=== PATIENT | female | born 1950 | race Caucasian/White ===

== ENCOUNTER 2021-02-12 02:56 | Emergency (ER) | payer MEDICARE, BC, SELFPAY ==
--- NOTE | ~2021-02-12 | XR_ITS ---
XR chest 1V portable DATE: 02/12/2021 03:40 INDICATION: Chest pain, shortness of breath TECHNIQUE: Portable AP chest on 02/12/2021 at 0336 hours COMPARISON: 12/10/2016 PA and lateral chest FINDINGS: There is pulmonary vascular congestion and redistribution. There is prominence of the minor fissure consistent with subpleural edema. There is patchy infiltrate in the mid to lower lung zones, primarily on the left, which may be due to pulmonary edema and/or pneumonia. Small pleural effusions are not excluded. Diffuse osteopenia. IMPRESSION: Congestive changes Bilateral mid and lower lung infiltrates, primarily on the left; differential diagnosis includes pulm onary edema, pneumonia Reviewed, dictated and finalized at location A. IMPRESSION: Congestive changes Bilateral mid and lower lung infiltrates, primarily on the left; differential d iagnosis includes pulmonary edema, pneumonia
--- NOTE | ~2021-02-12 | CT_ITS ---
EXAMINATION: CT chest abdomen pelvis wo con DATE: 02/12/2021 05:46 INDICATION: Aortic aneurysm. Chest pain. Shortness of breath. TECHNIQUE: Computed tomography (CT) of the chest, abdomen, and pelvis was performed without intraveno us contrast. Automated exposure control and iterative reconstruction technique were employed. The dos e-length product was 2017.10 mGy-cm. COMPARISON: None FINDINGS: CHEST CT: The lungs demonstrate mild atelectasis. There is a trace left pleural effusion. There is left atrial enlargement of the heart. There are coronary artery calcifications. No pericardial effusion. The cent ral pulmonary pulmonary arteries are enlarged, consistent with pulmonary arterial hypertension. There is mild mediastinal lymphadenopathy, likely reactive. There is mild thoracic spondylosis. ABDOMEN/PELVIS CT: The liver and spleen are normal. There are changes of cholecystectomy. The pancreas and adrenal gland s are normal. There are cysts in the kidneys measuring up to 1.6 cm on the right. There is a 2 mm sto ne in right kidney. There are no dilated loops of bowel. The appendix is not visualized. There are no pathologically enlarged lymph nodes. There is no free intraperitoneal fluid. There is subcutaneous f at stranding posterior to the pelvis to the right of midline, consistent with fat necrosis. Abdominal aorta is normal in caliber. There is mild lumbar spondylosis. IMPRESSION: 1. No aortic aneurysm. Reviewed, dictated and finalized at location B. IMPRESSION: 1. No aortic aneurysm.
[2021-02-12 02:58] VITALS: BP 123/57; PULSE 74; RESP 22; TEMP 36.6; O2SAT 95
--- NOTE | 2021-02-12 03:03 | ECG_ITS ---
Measurements Intervals [place] Rate: 72 P: 48 CT: 192 QRS: -4 QRSD: 95 T: 48 QT: 391 QTc: 429 Interpretive Statements SINUS RHYTHM DELAYED PRECORDIAL R/S TRANSITION BORDERLINE T WAVE ABNORMALITY- ANTERIOR LEADS BORDERLINE ECG Electronically Signed On 02-12-2021 7:24:35 CDT by Lucian España D.O.
[2021-02-12 03:10] VITALS: PULSE 74
[2021-02-12 03:20] LABS: Alveolar/Arterial O2 Gradient 108.1 mmHg; Base Excess ABG 5.9 mEq/l (+/-2.0); Carboxyhemoglobin 0.1 % THb (0-2.0); Device NASAL CANNULA; Fractional Inspired Oxygen 32 %; HCO3 ABG 29.8 mEq/l (22.0-26.0); Methemoglobin ABG 0.1 %THb (0-1.5); Modified Allen's Test Pass; Oxygen Content ABG 15.5 %vol (16.0-22.0); Oxygen Saturation ABG 95.5 % (95.0-100.0); Oxyhemoglobin 94.7 % THb (90.0-100.0); PCO2 ABG 40.8 mmHg (35.0-45.0); PO2 ABG 72.3 mmHg (80.0-100.0); PO2 FiO2 Ratio Arterial Blood 2.26 %; Reduced Hemoglobin 5.1 %THb (0-5.0); Site Drawn RIGHT RADIAL; Total Hemoglobin 11.6 g/dL (12.0-18.0); pH ABG 7.482 (7.350-7.450)
[2021-02-12 03:36] LABS: Basophils Absolute Auto 0.1 K/mm3 (0.0-0.1); Basophils Percent Auto 0.9 % (0.2-1.2); Eosinophils Absolute Auto 0.8 K/mm3 (0-0.3); Eosinophils Percent Auto 9.5 % (0-4.4); Hematocrit 33.9 % (37.0-47.0); Hemoglobin 10.9 g/dL (12.0-15.0); Immature Granulocyte Absolute 0.03 K/mm3 (0.00-0.031); Immature Granulocyte Percent A 0.4 % (0-0.5); Lymphocytes Absolute Auto 2.29 K/mm3 (0.9-3.2); Lymphocytes Percent Auto 26.8 % (18.3-44.2); Mean Corpuscular HGB Conc 32.2 g/dl (32-36); Mean Corpuscular Volume 99.4 fl (80-100); Mean Platelet Volume 9.3 fl (7.4-10.4); Monocytes Absolute Auto 0.8 K/mm3 (0.1-0.6); Monocytes Percent Auto 8.9 % (2.6-8.5); Neutrophils Absolute Auto 4.6 K/mm3 (1.3-6.7); Neutrophils Percent Auto 53.5 % (45.5-73.1); Platelet Count Result 215 k/mm3 (150-375); Red Blood Count 3.41 M/mm3 (4.2-5.4); Red Cell Distribution Width 16.4 % (11.5-14.5); White Blood Count 8.5 K/mm3 (4.5-10.0)
[2021-02-12 03:47] LABS: Prothrombin Time 13.5 Seconds (11.1-14.7)
[2021-02-12 03:47] LABS: Alanine Aminotransferase 37 U/L (4-35); Albumin Level 3.3 g/dL (3.5-5.1); Alkaline Phosphatase 61 U/L (38-126); Anion Gap 4 mmol/L (8-16); Aspartate Amino Transferase 54 U/L (14-36); Bilirubin,Total 0.4 mg/dL (0.2-1.3); Blood Urea Nitrogen 45 mg/dL (7-17); Calcium 9.9 mg/dL (8.4-10.2); Carbon Dioxide 32 mmol/L (22-30); Chloride 96 mmol/L (98-107); Estimated Glomerular Filt Rate 17; Glucose 127 mg/dL (65-105); Lipase 111 U/L (23-300); Potassium 4.1 mmol/L (3.4-5.0); Sodium 132 mmol/L (137-145)
[2021-02-12 03:48] LABS: Partial Thromboplastin Time 26.7 SECONDS (22.3-36.8)
--- NOTE | 2021-02-12 03:51 | ED.SOB ---
HPI - SOB/Dyspnea General Chief Complaint: Shortness of Breath/Dyspnea Stated Complaint: Shortness of breath Time Seen by Provider: 02/12/21 03:01 Source: patient Mode of arrival: EMS Limitations: no limitations History of Present Illness HPI Narrative: This is a 70 year old female with history of CAD, HTN, Chronic kidney disease, DMII, DVT, thoracic aortic aneursymp who presents from the retirement for evaluation of cough and shortness of breath x 1 week. She had a chest xray performed yesterday. Patient asked to come to ER because she was not getting any better. She has been wearing 1-2 L NC at retirement chronically. EMS reports patient's oxygenation was 88% at nursing but it is 95 % in our ER. She reports midchest, epigastric pain intermittent for 1 week. This pain occurs mostly when she coughs. She denies fever, nausea, vomiting or chills. Related Data Home Medications Medication Instructions Recorded Confirmed aspirin 81 mg tablet,delayed 81 mg PO DAILY 11/15/19 06/16/20 release carvedilol 25 mg tablet See Rx Instructions PO Q12H tablet 11/15/19 06/16/20 cholecalciferol (vitamin D3) 25 25 mcg PO DAILY 11/15/19 06/16/20 mcg (1,000 unit) tablet febuxostat 80 mg tablet 80 mg PO DAILY 11/15/19 06/16/20 magnesium oxide 400 mg PO DAILY 11/15/19 06/16/20 omega-3 fatty acids 1,000 mg 1,000 mg PO DAILY 11/15/19 06/16/20 capsule spironolactone 25 mg tablet 25 mg PO DAILY 11/15/19 06/16/20 pantoprazole 40 mg tablet,delayed 40 mg PO BID tablet 11/26/20 release sevelamer HCl 800 mg tablet 800 mg PO TID 11/26/20 insulin glargine 100 unit/mL (3 45 unit SUBCUT QPM ml 01/01/21 mL) subcutaneous pen Allergies Allergy/AdvReac Type Severity Reaction Status Date / Time No Known Allergies Allergy Verified 02/12/21 04:01 Review of Systems Review of Systems: All systems reviewed & are unremarkable except as noted in HPI and below Constitutional: Constitutional: Denies chills and Denies fever(s) Cardiovascular: Cardiovascular: Reports chest pain Respiratory: Respiratory: Reports cough and Reports dyspnea Gastrointestinal: Gastrointestinal: Reports abdominal pain [facility] Past Medical History Medical History (Updated 02/12/21 @ 06:53 by Magdalene Cunningham MD) Aortic aneurysm Chronic kidney disease, unspecified History of DVT (deep vein thrombosis) Hyperparathyroidism Hypertension Hypothyroidism Personal history of pulmonary embolism Sleep apnea Thyroid nodule Type 2 diabetes mellitus with diabetic nephropathy Family History Family History Mother Diabetes mellitus Family history of bipolar disorder Hypertension Father Family history of cardiovascular disease Cerebrovascular accident Family history of emphysema Other Family history of anemia Family history of congestive heart failure Family history of obesity Social History Social History Smoking status: Never smoker Alcohol intake: current Gender identity (if verbalized by the patient): Female Exam Const: General: alert Nutritional Appearance: obese Orientation/consciousness: patient oriented x3 Eyes: EOM: EOMs intact bilaterally Resp: Effort & Inspection: normal respiratory effort and no retractions Auscultation: clear to auscultation bilaterally Cardio: Rate: regular rate Rhythm: regular rhythm Heart sounds: no murmurs GI: GI Palp: Yes Soft to palpation, Yes Tenderness to palpation present (GI) (epigastric) and No Guarding due to palpation present (GI) Auscultation: normal bowel sounds Neuro: General: patient oriented x3 and moves all extremities Extrem: General: edema Psych: Mental Status: mental status grossly normal Affect: normal affect Course Reevaluation(s) Reevaluation #1: Patient is resting comfortably. She is in no acute distress and she is afebrile. Her oxygen saturation
[2021-02-12 03:58] LABS: NT Pro B Type Natriuretic Pept 1280 PG/ML (5-100); Troponin I < 0.012 ng/mL (0.000-0.034)
[2021-02-12 04:02] VITALS: BP 120/72; PULSE 73; RESP 20; O2SAT 97
--- NOTE | 2021-02-12 05:19 | PC.NURSE ---
contacted [facility] for pt. chart spoke with Amanda. Amanda states I gave two packets to the paramedics. One for you and one for them. RN asked Amanda if there was any chance for them to send another packet since there is not one here. Amanda states Yeah what is your fax number and who do I make it out too. RN informed Amanda it was not needed to put anyones name down and [facility] was acceptable. Amanda states no I want a name to put down so you wont call again.
[2021-02-12 06:13] VITALS: BP 121/57; PULSE 70; RESP 22; O2SAT 100
[2021-02-12 07:14] VITALS: BP 137/67; PULSE 74; RESP 22; O2SAT 95
--- NOTE | 2021-02-12 07:15 | PC.NURSE ---
Pt resting on cart easily arousable, AOx3, wet cough and states I feel I don't cough as much if my oxygen is increased . Baseline 2L (was satting 91%), increased to 3L with quick recovery to 95%. Pt will return to [place]
--- NOTE | 2021-02-12 08:00 | PC.NURSE ---
Updated daughter Beverly Flores [phone] on POC Called [facility], spoke with Lisa, stated nurse unavailable to take report at this time. Aware pt is being transported back and new ordered were already placed by detention MD Dr. Gillespie
== END 2021-02-12 08:20 ==
PROVIDERS: Emergency Provider General Practice; PCP Family Medicine
DX: I13.0 Hypertensive heart and chronic kidney disease with heart failure and stage 1 through stage 4 chronic kidney disease, or unspecified chronic kidney disease (principal); I50.9 Heart failure, unspecified; R06.00 Dyspnea, unspecified; E11.22 Type 2 diabetes mellitus with diabetic chronic kidney disease; N18.9 Chronic kidney disease, unspecified; E11.42 Type 2 diabetes mellitus with diabetic polyneuropathy; I25.10 Atherosclerotic heart disease of native coronary artery without angina pectoris; E21.3 Hyperparathyroidism, unspecified; E03.9 Hypothyroidism, unspecified; G47.30 Sleep apnea, unspecified; Z86.718 Personal history of other venous thrombosis and embolism; Z86.711 Personal history of pulmonary embolism; R94.31 Abnormal electrocardiogram [ECG] [EKG]
CPT/HCPCS: 36415; 36600; 71045; 71250; 74176; 80048; 80076; 82375; 82805; 83050; 83690; 83880; 84484; 85025; 85610; 85730; 93005; 99284

== ENCOUNTER 2021-04-30 13:42 | Emergency (ER) | payer MEDICARE, BC, SELFPAY ==
[2021-04-30 13:47] VITALS: BP 159/55; PULSE 65; RESP 20; TEMP 36.7; O2SAT 100
[2021-04-30 14:12] LABS: Basophils Absolute Auto 0.1 K/mm3 (0.0-0.1); Basophils Percent Auto 0.7 % (0.2-1.2); Eosinophils Absolute Auto 0.5 K/mm3 (0-0.3); Eosinophils Percent Auto 6.7 % (0-4.4); Hematocrit 36.7 % (37.0-47.0); Hemoglobin 11.2 g/dL (12.0-15.0); Immature Granulocyte Absolute 0.03 K/mm3 (0.00-0.031); Immature Granulocyte Percent A 0.4 % (0-0.5); Lymphocytes Absolute Auto 2.14 K/mm3 (0.9-3.2); Lymphocytes Percent Auto 29.2 % (18.3-44.2); Mean Corpuscular HGB Conc 30.5 g/dl (32-36); Mean Corpuscular Hemoglobin 30.8 pg (26-34); Mean Corpuscular Volume 100.8 fl (80-100); Monocytes Absolute Auto 0.7 K/mm3 (0.1-0.6); Monocytes Percent Auto 9.6 % (2.6-8.5); Neutrophils Absolute Auto 3.9 K/mm3 (1.3-6.7); Neutrophils Percent Auto 53.4 % (45.5-73.1); Platelet Count Result 224 k/mm3 (150-375); Red Blood Count 3.64 M/mm3 (4.2-5.4); Red Cell Distribution Width 15.8 % (11.5-14.5); White Blood Count 7.3 K/mm3 (4.5-10.0)
[2021-04-30 14:21] LABS: Prothrombin Time 13.3 Seconds (11.1-14.7)
[2021-04-30 14:22] LABS: Partial Thromboplastin Time 24.9 SECONDS (22.3-36.8)
[2021-04-30 14:27] LABS: Alanine Aminotransferase 12 U/L (4-35); Alkaline Phosphatase 70 U/L (38-126); Anion Gap 11 mmol/L (8-16); Aspartate Amino Transferase 26 U/L (14-36); Bilirubin,Total 0.7 mg/dL (0.2-1.3); Blood Urea Nitrogen 41 mg/dL (7-17); Calcium 10.8 mg/dL (8.4-10.2); Carbon Dioxide 29 mmol/L (22-30); Chloride 101 mmol/L (98-107); Estimated CRCL calculation 30 ml/min; Estimated Glomerular Filt Rate 21; Glucose 112 mg/dL (65-105); Potassium 3.5 mmol/L (3.4-5.0); Sodium 141 mmol/L (137-145)
[2021-04-30 15:29] VITALS: BP 143/66; PULSE 61; RESP 20; O2SAT 100
--- NOTE | 2021-04-30 15:36 | ED.GIBLEED ---
HPI - GI Bleed General Chief complaint: GI Bleed Stated complaint: GI Bleed? Time Seen by Provider: 04/30/21 15:10 History of Present Illness HPI Narrative: Patient is a 70-year-old female who presents ER with concerns for GI bleed. Patient reports for the last 3 weeks she has been having dark black stools. Reports she gave a stool sample to her PCP and the results came back as normal. She was also told that her anemia has improved since previous testing. She does not take iron. She does report she has been taking some Pepto-Bismol since having her loose stools. Last bowel movement was yesterday. No emesis. No heartburn. She is not on any blood thinners. Denies use of anti-inflammatories. She does take a baby aspirin. Related Data Home Medications Medication Instructions Recorded Confirmed aspirin 81 mg tablet,delayed 81 mg PO DAILY 11/15/19 04/20/21 release carvedilol 25 mg tablet See Rx Instructions PO Q12H tablet 11/15/19 04/20/21 cholecalciferol (vitamin D3) 25 25 mcg PO DAILY 11/15/19 04/20/21 mcg (1,000 unit) tablet febuxostat 80 mg tablet 80 mg PO DAILY 11/15/19 04/20/21 magnesium oxide 400 mg PO DAILY 11/15/19 04/20/21 omega-3 fatty acids 1,000 mg 1,000 mg PO DAILY 11/15/19 04/20/21 capsule spironolactone 25 mg tablet 25 mg PO DAILY 11/15/19 04/20/21 pantoprazole 40 mg tablet,delayed 40 mg PO BID tablet 11/26/20 04/20/21 release sevelamer HCl 800 mg tablet 800 mg PO TID 11/26/20 04/20/21 B-complex with vitamin C 1 tablet PO DAILY 03/17/21 04/20/21 allopurinol 300 mg tablet 300 mg PO DAILY 03/17/21 04/20/21 cetirizine 10 mg tablet 10 mg PO DAILY PRN 03/17/21 04/20/21 fluticasone propionate 50 2 spray INTRANASAL DAILY 03/17/21 04/20/21 mcg/actuation nasal spray,suspension furosemide 20 mg tablet 60 mg PO BID tablet 03/17/21 04/20/21 lactulose 10 gram/15 mL oral 10 g PO DAILY 03/17/21 04/20/21 solution omega-3 fatty acids 1,000 mg 1,000 mg PO DAILY 03/17/21 04/20/21 capsule Allergies Allergy/AdvReac Type Severity Reaction Status Date / Time No Known Allergies Allergy Verified 04/30/21 15:34 Review of Systems Review of Systems: All systems reviewed & are unremarkable except as noted in HPI and below Constitutional: Constitutional: Denies chills, Denies fever(s) and Denies weakness Cardiovascular: Cardiovascular: Denies chest pain and Denies radiating jaw, neck or arm pain Respiratory: Respiratory: Denies cough and Reports dyspnea (Chronic, wears 3 L.) Gastrointestinal: Gastrointestinal: Denies abdominal pain, Reports diarrhea, Denies nausea and Denies vomiting Comments: dark stools Genitourinary: Genitourinary: Denies abnormal vaginal bleeding, Denies nocturia and Denies dysuria Neurologic: Denies dizziness, Denies syncope and Denies weakness [facility] Past Medical History Medical History (Updated 04/30/21 @ 15:49 by Kit Krishnamurthy MD) Aortic aneurysm Chronic kidney disease, unspecified History of DVT (deep vein thrombosis) Hyperparathyroidism Hypertension Hypothyroidism Personal history of pulmonary embolism Sleep apnea Thyroid nodule Type 2 diabetes mellitus with diabetic nephropathy Family History Family History Mother Diabetes mellitus Family history of bipolar disorder Hypertension Father Family history of cardiovascular disease Cerebrovascular accident Family history of emphysema Other Family history of anemia Family history of congestive heart failure Family history of obesity Social History Social History Smoking status: Never smoker Second hand tobacco smoke exposure: No Alcohol intake: never Substance use: never Substance use type: does not use Gender identity (if verbalized by the patient): Female Spiritual care concerns: No Agree to blood products: Yes Exam Narrative: Exam Narrative: GENERAL: Well
[2021-04-30 16:26] VITALS: BP 148/64; PULSE 63; RESP 18; O2SAT 100
== END 2021-04-30 17:03 | disposition home or self-care (01) ==
LOC: ANHED 16:25
PROVIDERS: Emergency Provider Emergency Medicine; PCP Family Medicine
DX: R19.5 Other fecal abnormalities (principal); E11.22 Type 2 diabetes mellitus with diabetic chronic kidney disease; I12.9 Hypertensive chronic kidney disease with stage 1 through stage 4 chronic kidney disease, or unspecified chronic kidney disease; N18.9 Chronic kidney disease, unspecified; E03.9 Hypothyroidism, unspecified; I26.99 Other pulmonary embolism without acute cor pulmonale; Z86.718 Personal history of other venous thrombosis and embolism; Z79.82 Long term (current) use of aspirin
CPT/HCPCS: 36415; 80053; 85025; 85610; 85730; 86850; 86900; 86901; 99283

== ENCOUNTER 2021-05-26 10:10 | Outpatient (CLI) | payer MEDICARE, BC, SELFPAY ==
--- NOTE | ~2021-05-26 | MM_ITS ---
EXAMINATION: MM screening joselin BI w yaw HISTORY: Screening TECHNIQUE: Craniocaudal and mediolateral oblique 3-D tomosynthesis images were obtained and synthetic 2-D images were generated. CAD analysis was submitted and interpreted. COMPARISON: No prior mammogram is available for comparison at this institution. BREAST PARENCHYMAL COMPOSITION: There are scattered areas of fibroglandular density. FINDINGS: There is no evidence of suspicious mass, calcification, or architectural distortion to sugg est malignancy in either breast. There has been no suspicious interval change. IMPRESSION: 1. No mammographic evidence of malignancy. 2. Recommend routine screening mammography in one year. BI-RADS Category 1: Negative Reviewed, dictated and finalized at location A.
== END 2021-05-26 10:11 | disposition home or self-care (01) ==
PROVIDERS: PCP Family Medicine; Visit Provider Family Medicine
DX: Z12.31 Encounter for screening mammogram for malignant neoplasm of breast (principal)
CPT/HCPCS: 77063; 77067

== ENCOUNTER 2021-06-05 01:07 | Day surgery (SDC) | payer MEDICARE, BC, SELFPAY ==
[2021-05-27 13:31] VITALS: BMI 49.8
--- NOTE | 2021-06-05 06:43 | PM.HPGS ---
History of Present Illness History of Present Illness Consent: Risks, benefits, and alternatives have been discussed and questions answered. Patient agrees to proceed with procedure. Chief complaint: melena, nausea Narrative: Beto Bryan is a 70 year old female who takes pantoprazole for acid reflux but recently has had black stools for the past couple of weeks. She has history of colon polyps and is due for colonoscopy for screening Review of Systems Review of Systems: All systems reviewed & are unremarkable except as noted in HPI and below PMFSH Past Medical History Medical History Aortic aneurysm Chronic kidney disease, unspecified History of DVT (deep vein thrombosis) Hyperparathyroidism Hypertension Hypothyroidism Personal history of pulmonary embolism Sleep apnea Thyroid nodule Type 2 diabetes mellitus with diabetic nephropathy Family History Family History Mother Diabetes mellitus Family history of bipolar disorder Hypertension Father Family history of cardiovascular disease Cerebrovascular accident Family history of emphysema Other Family history of anemia Family history of congestive heart failure Family history of obesity Social History Social History Smoking status: Never smoker Second hand tobacco smoke exposure: No Alcohol intake: never Substance use: never Substance use type: does not use Living arrangements: assisted living Gender identity (if verbalized by the patient): Female Spiritual care concerns: No Agree to blood products: Yes Meds Home Medications and Allergies Home Medications Medication Instructions Recorded Confirmed Type carvedilol 25 mg tablet 50 mg PO Q12H tablet 11/15/19 06/05/21 History cholecalciferol (vitamin D3) 25 25 mcg PO DAILY 11/15/19 06/05/21 History mcg (1,000 unit) tablet magnesium oxide 400 mg PO DAILY 11/15/19 06/05/21 History omega-3 fatty acids 1,000 mg 1,000 mg PO DAILY 11/15/19 06/05/21 History capsule allopurinol 300 mg tablet 300 mg PO DAILY 03/17/21 06/05/21 History fluticasone propionate 50 2 spray INTRANASAL DAILY 03/17/21 06/05/21 History mcg/actuation nasal spray,suspension furosemide 20 mg tablet 60 mg PO BID tablet 03/17/21 06/05/21 History lactulose 10 gram/15 mL oral 10 g PO DAILY 03/17/21 06/05/21 History solution insulin glargine 100 unit/mL (3 50 unit SUBCUT QPM 90 Days #45 ml 04/20/21 06/05/21 Rx mL) subcutaneous pen levothyroxine 50 mcg tablet 50 mcg PO DAILY #90 tablet 04/20/21 06/05/21 Rx pen needle, diabetic 31 gauge x #400 each 04/20/21 06/05/21 Rx /16 blood sugar diagnostic #400 each 04/21/21 06/05/21 Rx insulin lispro 100 unit/mL 21 unit SUBCUT TID #60 ml 04/21/21 06/05/21 Rx subcutaneous pen lancets 33 gauge #400 each 04/21/21 06/05/21 Rx Vitamin B Complex With C 1 tablet PO DAILY 05/27/21 06/05/21 History atorvastatin 10 mg PO DAILY 05/27/21 06/05/21 History cetirizine 10 mg PO DAILY 05/27/21 06/05/21 History escitalopram oxalate 10 mg PO DAILY 05/27/21 06/05/21 History febuxostat 80 mg PO DAILY 05/27/21 06/05/21 History fexofenadine 180 mg PO DAILY 05/27/21 06/05/21 History pantoprazole 40 mg PO DAILY 05/27/21 06/05/21 History sevelamer HCl 800 mg PO TID 05/27/21 06/05/21 History spironolactone 25 mg PO DAILY 05/27/21 06/05/21 History Allergies Allergy/AdvReac Type Severity Reaction Status Date / Time No Known Allergies Allergy Verified 06/05/21 07:36 Exam Resp: Auscultation: clear to auscultation bilaterally Cardio: Rate: regular rate Rhythm: regular rhythm GI: GI Palp: Yes Soft to palpation and No Tenderness to palpation present (GI) Assessment and Plan Assessment and plan (1) Melena: Code(s): K92.1 - Melena Status: Acute Assessment and Plan: EGD with po
[2021-06-05 07:41] VITALS: BP 131/58; PULSE 74; RESP 20; TEMP 36.2; O2SAT 95
[2021-06-05] MEDS: LACTATED RINGERS 1,000 ML 150 ML IV CONT (07:48)
--- NOTE | 2021-06-05 07:52 | WPDANESEPPF ---
Anes - Initial Pre Proc Eval Procedure: Operation Date: 06/05/21 08:30 Proposed Procedures p Esophagogastroduodenoscopy & Colonoscopy - Dereje Santos MD Date/Time: 06/05/21 07:52 Surgeon: Dereje Santos MD Pre Op Diagnosis: melena, nausea Patient Data Age: 70 Gender: F Height: 1.65 m Weight: 145.3 kg Last Vital Signs Temp 36.2 C L 06/05/21 07:41 Pulse 74 06/05/21 07:41 Resp 20 06/05/21 07:41 BP 131/58 L 06/05/21 07:41 Pulse Ox 95 06/05/21 07:41 Allergies Allergy/AdvReac Type Severity Reaction Status Date / Time No Known Allergies Allergy Verified 06/05/21 07:36 Home Medications Medication Instructions Recorded Confirmed Type carvedilol 25 mg tablet 50 mg PO Q12H tablet 11/15/19 06/05/21 History cholecalciferol (vitamin D3) 25 25 mcg PO DAILY 11/15/19 06/05/21 History mcg (1,000 unit) tablet magnesium oxide 400 mg PO DAILY 11/15/19 06/05/21 History omega-3 fatty acids 1,000 mg 1,000 mg PO DAILY 11/15/19 06/05/21 History capsule allopurinol 300 mg tablet 300 mg PO DAILY 03/17/21 06/05/21 History fluticasone propionate 50 2 spray INTRANASAL DAILY 03/17/21 06/05/21 History mcg/actuation nasal spray,suspension furosemide 20 mg tablet 60 mg PO BID tablet 03/17/21 06/05/21 History lactulose 10 gram/15 mL oral 10 g PO DAILY 03/17/21 06/05/21 History solution insulin glargine 100 unit/mL (3 50 unit SUBCUT QPM 90 Days #45 ml 04/20/21 06/05/21 Rx mL) subcutaneous pen levothyroxine 50 mcg tablet 50 mcg PO DAILY #90 tablet 04/20/21 06/05/21 Rx pen needle, diabetic 31 gauge x #400 each 04/20/21 06/05/21 Rx 5/16 blood sugar diagnostic #400 each 04/21/21 06/05/21 Rx insulin lispro 100 unit/mL 21 unit SUBCUT TID #60 ml 04/21/21 06/05/21 Rx subcutaneous pen lancets 33 gauge #400 each 04/21/21 06/05/21 Rx Vitamin B Complex With C 1 tablet PO DAILY 05/27/21 06/05/21 History atorvastatin 10 mg PO DAILY 05/27/21 06/05/21 History cetirizine 10 mg PO DAILY 05/27/21 06/05/21 History escitalopram oxalate 10 mg PO DAILY 05/27/21 06/05/21 History febuxostat 80 mg PO DAILY 05/27/21 06/05/21 History fexofenadine 180 mg PO DAILY 05/27/21 06/05/21 History pantoprazole 40 mg PO DAILY 05/27/21 06/05/21 History sevelamer HCl 800 mg PO TID 05/27/21 06/05/21 History spironolactone 25 mg PO DAILY 05/27/21 06/05/21 History Laboratory Tests 06/05/21 07:50 POC Capillary Glucose Pending Patient hx anesthesia problems: none Family hx anesthesia problems: none PMFSH Past Medical History Medical History Aortic aneurysm Chronic kidney disease, unspecified History of DVT (deep vein thrombosis) Hyperparathyroidism Hypertension Hypothyroidism Personal history of pulmonary embolism Sleep apnea Thyroid nodule Type 2 diabetes mellitus with diabetic nephropathy Family History Family History Mother Diabetes mellitus Family history of bipolar disorder Hypertension Father Family history of cardiovascular disease Cerebrovascular accident Family history of emphysema Other Family history of anemia Family history of congestive heart failure Family history of obesity Social History Social History Smoking status: Never smoker Second hand tobacco smoke exposure: No Alcohol intake: never Substance use: never Substance use type: does not use Living arrangements: assisted living Gender identity (if verbalized by the patient): Female Spiritual care concerns: No Agree to blood products: Yes Anes - Eval Final PreProcedure Day of Procedure 06/05/21 07:52 Patient weight: super morbidly obese Heart: regular rate and rhythm Lungs: decreased breath sounds Airway: Mallampati scale class II Neurological: other (alert) Last oral intake: >/= 8 hours ASA classification: IV Emerge
[2021-06-05 07:53] LABS: Glucose Point of Care 220 mg/dl (65-105)
[2021-06-05] MEDS: SIMETHICONE ORAL SUSPENSION 20 MG/0.3 ML 30 ML BOTTLE 0.6 ML IRRIGATION (08:25)
[2021-06-05 08:45] VITALS: BP 125/55; PULSE 75; RESP 22; O2SAT 93
[2021-06-05 08:55] VITALS: BP 106/50; PULSE 73; RESP 15; O2SAT 94
[2021-06-05 09:05] VITALS: BP 122/60; PULSE 72; RESP 20; O2SAT 95
[2021-06-05 09:18] LABS: Glucose Point of Care 209 mg/dl (65-105)
== END 2021-06-05 09:30 | disposition home or self-care (01) ==
PROVIDERS: PCP Family Medicine; Visit Provider Internal Medicine Gastroenterology
PROC: 0DJ08ZZ Inspection of Upper Intestinal Tract, Via Natural or Artificial Opening Endoscopic (ICD-10-PCS; CPT 43235; principal; 2021-06-05 08:30)
DX: K92.1 Melena (principal); D12.2 Benign neoplasm of ascending colon; K21.9 Gastro-esophageal reflux disease without esophagitis; I71.9 Aortic aneurysm of unspecified site, without rupture; I12.9 Hypertensive chronic kidney disease with stage 1 through stage 4 chronic kidney disease, or unspecified chronic kidney disease; N18.9 Chronic kidney disease, unspecified; E11.22 Type 2 diabetes mellitus with diabetic chronic kidney disease; E03.9 Hypothyroidism, unspecified; E04.1 Nontoxic single thyroid nodule; G47.30 Sleep apnea, unspecified; Z86.718 Personal history of other venous thrombosis and embolism; Z86.010 Personal history of colon polyps; Z86.711 Personal history of pulmonary embolism
CPT/HCPCS: 45385; 43235; 82948; 88305; J2704; J7120

== ENCOUNTER 2021-08-04 14:29 | Outpatient (CLI) | payer MEDICARE, BC, SELFPAY ==
[2021-08-04 15:30] LABS: Hematocrit 35.8 % (37.0-47.0); Hemoglobin 11.3 g/dL (12.0-15.0); Mean Corpuscular HGB Conc 31.6 g/dl (32-36); Mean Corpuscular Hemoglobin 30.1 pg (26-34); Mean Corpuscular Volume 95.5 fl (80-100); Mean Platelet Volume 10.4 fl (7.4-10.4); Platelet Count Result 268 k/mm3 (150-375); Red Blood Count 3.75 M/mm3 (4.2-5.4); Red Cell Distribution Width 15.9 % (11.5-14.5); White Blood Count 8.1 K/mm3 (4.5-10.0)
[2021-08-04 16:14] LABS: Anion Gap 11 mmol/L (8-16); Blood Urea Nitrogen 63 mg/dL (7-17); Calcium 10.7 mg/dL (8.4-10.2); Carbon Dioxide 27 mmol/L (22-30); Chloride 102 mmol/L (98-107); Estimated Glomerular Filt Rate 17; Glucose 122 mg/dL (65-110); Magnesium 2.2 mg/dL (1.6-2.3); Phosphorus 3.6 mg/dL (2.5-4.5); Potassium 4.4 mmol/L (3.4-5.0); Sodium 140 mmol/L (137-145)
[2021-08-04 16:39] LABS: Creatinine Urine 113.1 mg/dL
[2021-08-04 16:45] LABS: MALB Creatinine Ratio 24.9 mg/g (0-30); Microalbumin Urine Random 28.2 mg/L (0-16.7)
[2021-08-04 20:16] LABS: Parathyroid Intact 272.5 pg/mL (7.5-53.5)
== END 2021-08-04 14:30 | disposition home or self-care (01) ==
PROVIDERS: PCP Family Medicine
DX: N18.4 Chronic kidney disease, stage 4 (severe) (principal); E79.0 Hyperuricemia without signs of inflammatory arthritis and tophaceous disease; E21.3 Hyperparathyroidism, unspecified
CPT/HCPCS: 36415; 80048; 82043; 82306; 83735; 83970; 84100; 84550; 85027

== ENCOUNTER 2021-08-31 13:16 | Emergency (ER) | payer MEDICARE, BC, SELFPAY ==
[2021-08-31 13:16] VITALS: BP 157/73; PULSE 64; RESP 16; TEMP 36.4; O2SAT 96
--- NOTE | 2021-08-31 13:33 | ED.GENADULT ---
HPI - General Adult General Chief complaint: Unspecified Stated complaint: LOW BLOOD SUGAR Time Seen by Provider: 08/31/21 13:17 Source: patient and EMS Mode of arrival: EMS Limitations: no limitations History of Present Illness HPI narrative: Patient is a 70-year-old female with a history of hypertension, hypothyroidism, aortic aneurysm, insulin-dependent type 2 diabetes, presenting for evaluation of hypoglycemia. Patient states that she took her usual sliding scale insulin this morning as prescribed, dosed herself 20 units of NovoLog after her blood sugar this morning was 150. Patient states that she then went to get lunch which was slightly delayed, and around noon, she started to feel like she may pass out, slightly diaphoretic as well. Her blood sugar was checked and was 49. Patient was taken up to her room, given juice, with improvement to the blood sugar into the 70s. She did not have any of her lunch. Patient states she was then transported to our facility via EMS. Patient states she currently feels slightly foggy. She denies any current weakness or numbness. No chest pain, palpitations or shortness of breath. No nausea or vomiting. Patient did not lose consciousness. She did not pass out. No recent illnesses. No recent medication changes. She states that she doses her sliding scale as directed by her horticultural therapist,Dr. Parkinson. Related Data Home Medications Medication Instructions Recorded Confirmed carvedilol 25 mg tablet 50 mg PO Q12H tablet 11/15/19 08/04/21 cholecalciferol (vitamin D3) 25 25 mcg PO DAILY 11/15/19 08/04/21 mcg (1,000 unit) tablet magnesium oxide 400 mg PO DAILY 11/15/19 08/04/21 omega-3 fatty acids 1,000 mg 1,000 mg PO DAILY 11/15/19 08/04/21 capsule allopurinol 300 mg tablet 300 mg PO DAILY 03/17/21 08/04/21 fluticasone propionate 50 2 spray INTRANASAL DAILY 03/17/21 08/04/21 mcg/actuation nasal spray,suspension furosemide 20 mg tablet 60 mg PO BID tablet 03/17/21 08/04/21 Vitamin B Complex With C 1 tablet PO DAILY 05/27/21 08/04/21 atorvastatin 10 mg PO DAILY 05/27/21 08/04/21 cetirizine 10 mg PO DAILY 05/27/21 08/04/21 escitalopram oxalate 10 mg PO DAILY 05/27/21 08/04/21 fluticasone furoate 100 1 inh INHALATION DAILY 07/21/21 08/04/21 mcg-vilanterol 25 mcg/dose inhalation powder nitroglycerin 0.4 mg sublingual 0.4 mg SUBLINGUAL Q5M PRN 07/21/21 08/04/21 tablet insulin glargine 100 unit/mL (3 55 unit SUBCUT QPM ml 08/04/21 08/04/21 mL) subcutaneous pen insulin lispro 100 unit/mL 18 unit SUBCUT TID ml 08/04/21 08/04/21 subcutaneous pen aspirin 81 mg PO DAILY 08/31/21 furosemide 40 mg PO BID 08/31/21 potassium chloride 20 meq PO DAILY 08/31/21 Allergies Allergy/AdvReac Type Severity Reaction Status Date / Time No Known Allergies Allergy Verified 07/21/21 09:36 Review of Systems Review of Systems: CONSTITUTIONAL: Denies fever, chills, or sweats. EYES: Denies visual changes, redness, or discharge. ENT: Denies rhinorrhea, congestion, sore throat, or otalgia. CARDIOVASCULAR: Denies chest pain, palpitations, or edema. RESPIRATORY: Denies cough or dyspnea. GASTROINTESTINAL: Denies abdominal pain, nausea, vomiting, or diarrhea. GENITOURINARY: Denies dysuria or hematuria. SKIN: Denies rash or itching. MUSCULOSKELETAL: Denies back pain, joint pain, or myalgia. NEUROLOGIC: Denies headache, numbness, or weakness. [facility] Past Medical History Medical History (Updated 08/31/21 @ 16:14 by Beverly Dial MD) Aortic aneurysm Chronic kidney disease, unspecified History of DVT (deep vein thrombosis) Hyperparathyroidism Hypertension Hypothyroidism Personal history of pulmonary embolism Sleep apnea Thyroid nodule Type 2 diabetes mellitus with diabetic nephropathy Family History Family History Mother Diabetes mellitus Family history of bipolar disorder Hypertension Father Family history of cardiov
[2021-08-31 14:05] LABS: Glucose Point of Care 92 mg/dl (65-105)
[2021-08-31 14:37] LABS: Basophils Absolute Auto 0.1 K/mm3 (0.0-0.1); Basophils Percent Auto 0.6 % (0.2-1.2); Eosinophils Absolute Auto 0.2 K/mm3 (0-0.3); Hemoglobin 11.3 g/dL (12.0-15.0); Immature Granulocyte Absolute 0.05 K/mm3 (0.00-0.031); Immature Granulocyte Percent A 0.5 % (0-0.5); Lymphocytes Absolute Auto 2.18 K/mm3 (0.9-3.2); Lymphocytes Percent Auto 21.3 % (18.3-44.2); Mean Corpuscular HGB Conc 31.4 g/dl (32-36); Mean Corpuscular Hemoglobin 30.3 pg (26-34); Mean Corpuscular Volume 96.5 fl (80-100); Mean Platelet Volume 10.3 fl (7.4-10.4); Monocytes Percent Auto 9.8 % (2.6-8.5); Neutrophils Absolute Auto 6.7 K/mm3 (1.3-6.7); Neutrophils Percent Auto 65.8 % (45.5-73.1); Platelet Count Result 216 k/mm3 (150-375); Red Blood Count 3.73 M/mm3 (4.2-5.4); Red Cell Distribution Width 16.4 % (11.5-14.5); White Blood Count 10.2 K/mm3 (4.5-10.0)
[2021-08-31 14:42] LABS: Glucose Point of Care 116 mg/dl (65-105)
[2021-08-31 14:58] LABS: Anion Gap 10 mmol/L (8-16); Blood Urea Nitrogen 63 mg/dL (7-17); Calcium 10.2 mg/dL (8.4-10.2); Carbon Dioxide 27 mmol/L (22-30); Chloride 101 mmol/L (98-107); Estimated CRCL calculation 31 ml/min; Estimated Glomerular Filt Rate 21; Glucose 115 mg/dL (65-110); Potassium 4.2 mmol/L (3.4-5.0); Sodium 138 mmol/L (137-145)
[2021-08-31 15:00] LABS: Glucose Point of Care 130 mg/dl (65-105)
[2021-08-31 16:17] LABS: Glucose Point of Care 139 mg/dl (65-105)
[2021-08-31 18:11] VITALS: BP 147/64; PULSE 61; RESP 18; O2SAT 98
[2021-09-01 14:21] LABS: Glucose Point of Care 77 mg/dl (65-105)
== END 2021-08-31 18:12 | disposition home or self-care (01) ==
PROVIDERS: Emergency Provider Emergency Medicine; PCP Family Medicine
DX: E11.649 Type 2 diabetes mellitus with hypoglycemia without coma (principal); E11.22 Type 2 diabetes mellitus with diabetic chronic kidney disease; I12.9 Hypertensive chronic kidney disease with stage 1 through stage 4 chronic kidney disease, or unspecified chronic kidney disease; N18.9 Chronic kidney disease, unspecified; E11.21 Type 2 diabetes mellitus with diabetic nephropathy; E03.9 Hypothyroidism, unspecified; Z79.4 Long term (current) use of insulin; Z86.711 Personal history of pulmonary embolism; Z86.718 Personal history of other venous thrombosis and embolism; Z79.82 Long term (current) use of aspirin
CPT/HCPCS: 36415; 80048; 82948; 85025; 99283

== ENCOUNTER 2021-10-27 12:55 | Outpatient (CLI) | payer MEDICARE, BC, SELFPAY ==
--- NOTE | ~2021-10-27 | US_ITS ---
EXAMINATION: US thyroid EXAM DATE: 10/27/2021 15:16 INDICATION: E04.1 - Nontoxic single thyroid nodule. TECHNIQUE: Multiple grayscale and Doppler images of the thyroid were obtained (by a technologist who performed the scan) and subsequently reviewed. Individual nodules and recommendations may be reporte d in accordance with TI-RADS system as designated by the 2017 ACR White Paper TI-RADS committee. Camilla gibbons is made to prior examination from 03/21/2018. FINDINGS: The right thyroid lobe measures 4.7 x 2.8 x 2.0 cm, the left measuring 4.7 x 2.7 x 1.6 cm, mildly enl arged dimensions with a thickened isthmus of 7 mm. There are numerous scattered thyroid nodules. Largest right thyroid lobe nodule measures 1.2 x 0.9 x 1.3, solid (2 points), hypoechoic (2 points), wider than tall, lobulated margin (2 points), without echogenic foci, category TR4 for this nodule. On previous examination dimensions are provided at 1.3 x 1.5 x 1.3 cm, nodule is stable or decreased in size compared to that study consistent with benign histology. Additionally, it appears this nodule was biopsied in 2018, correlate with those results. The other right thyroid lobe nodules are subcent imeter in size. The largest solid left thyroid lobe solid nodule measures up to 9 mm, stable. IMPRESSION: Multinodular goiter. Return to clinical follow-up and if additional palpable abnormality develops a repeat ultrasound. Reviewed, dictated and finalized at location A. IRATORY THERAPIST
== END 2021-10-27 12:56 | disposition home or self-care (01) ==
LOC: ANHIMG 13:03
PROVIDERS: PCP Family Medicine; Visit Provider Internal Medicine Endocrinology, Diabetes & Metabolism
DX: E04.2 Nontoxic multinodular goiter (principal); E03.9 Hypothyroidism, unspecified; E11.65 Type 2 diabetes mellitus with hyperglycemia; E83.52 Hypercalcemia
CPT/HCPCS: 76536

== ENCOUNTER 2021-11-10 13:26 | Outpatient (CLI) | payer MEDICARE, BC, SELFPAY ==
[2021-11-10 14:31] LABS: Basophils Percent Auto 0.5 % (0.2-1.2); Eosinophils Percent Auto 3.5 % (0-4.4); Hematocrit 36.1 % (37.0-47.0); Hemoglobin 11.3 g/dL (12.0-15.0); Immature Granulocyte Percent A 0.4 % (0-0.5); Lymphocytes Percent Auto 20.5 % (18.3-44.2); Mean Corpuscular HGB Conc 31.3 g/dl (32-36); Mean Corpuscular Hemoglobin 30.1 pg (26-34); Mean Platelet Volume 10.6 fl (7.4-10.4); Monocytes Percent Auto 7.5 % (2.6-8.5); Neutrophils Percent Auto 67.6 % (45.5-73.1); Platelet Count Result 236 k/mm3 (150-375); Red Blood Count 3.76 M/mm3 (4.2-5.4); Red Cell Distribution Width 16.2 % (11.5-14.5); White Blood Count 9.6 K/mm3 (4.5-10.0)
[2021-11-10 14:32] LABS: Basophils Absolute Auto 0.1 K/mm3 (0.0-0.1); Eosinophils Absolute Auto 0.3 K/mm3 (0-0.3); Immature Granulocyte Absolute 0.04 K/mm3 (0.00-0.031); Lymphocytes Absolute Auto 1.96 K/mm3 (0.9-3.2); Monocytes Absolute Auto 0.7 K/mm3 (0.1-0.6); Neutrophils Absolute Auto 6.5 K/mm3 (1.3-6.7)
[2021-11-10 14:41] LABS: Anion Gap 11 mmol/L (8-16); Blood Urea Nitrogen 63 mg/dL (7-17); Carbon Dioxide 27 mmol/L (22-30); Chloride 99 mmol/L (98-107); Estimated Glomerular Filt Rate 17; Glucose 208 mg/dL (65-110); Magnesium 2.2 mg/dL (1.6-2.3); Potassium 4.6 mmol/L (3.4-5.0); Sodium 137 mmol/L (137-145)
[2021-11-10 17:00] LABS: Iron 37 ug/dL (37-170)
[2021-11-10 17:01] LABS: Alanine Aminotransferase 14 U/L (4-35); Albumin Level 4.2 g/dL (3.5-5.1); Alkaline Phosphatase 119 U/L (38-126); Anion Gap 10 mmol/L (8-16); Aspartate Amino Transferase 23 U/L (14-36); Bilirubin,Total 0.4 mg/dL (0.2-1.3); Blood Urea Nitrogen 62 mg/dL (7-17); Carbon Dioxide 27 mmol/L (22-30); Chloride 100 mmol/L (98-107); Estimated Glomerular Filt Rate 17; Glucose 205 mg/dL (65-110); Potassium 4.6 mmol/L (3.4-5.0); Sodium 137 mmol/L (137-145)
[2021-11-10 17:13] LABS: Percent Iron Saturation 10 % (20-50)
[2021-11-10 18:11] LABS: Folic Acid 14.6 ng/mL (2.76->20)
== END 2021-11-10 13:27 | disposition home or self-care (01) ==
PROVIDERS: PCP Family Medicine; Visit Provider Family Medicine
DX: R10.9 Unspecified abdominal pain (principal); N18.4 Chronic kidney disease, stage 4 (severe); R19.7 Diarrhea, unspecified; D64.9 Anemia, unspecified
CPT/HCPCS: 36415; 80048; 80053; 82607; 82746; 83540; 83550; 83735; 84443; 85025

== ENCOUNTER 2021-12-29 11:11 | Inpatient (IN) | payer MEDICARE, BC, SELFPAY ==
[2021-12-29] VITALS (38 sets, daily range): BP systolic 101–153; BP diastolic 59–95; PULSE 49–91; RESP 12–22; TEMP 36.5–36.8; O2SAT 92–100; BMI 57.4
--- NOTE | ~2021-12-29 | US_ITS ---
EXAMINATION: US renal BI DATE: 12/31/2021 10:09 INDICATION: Acute on chronic renal failure. TECHNIQUE: Multiple ultrasound grayscale images of the kidneys were obtained. COMPARISON: CT 12/29/2021 FINDINGS: Sensitivity is decreased by obesity. The right kidney measures 10.4 x 4.9 x 5.3 cm. The left kidney m easures 10.4 x 5.4 x 5.7 cm. The kidneys demonstrate normal parenchymal echogenicity. There is a 2.4 cm cyst in right kidney. There is a 1.8 cm cyst in left kidney. There is no hydronephrosis. The bladd er is normal. IMPRESSION: 1. Normal kidney sizes. No hydronephrosis. Reviewed, dictated and finalized at location A. IDE OPERATOR
--- NOTE | ~2021-12-29 | CT_ITS ---
EXAMINATION: CT chest abdomen pelvis wo con DATE: 12/29/2021 15:30 INDICATION: Chest and low back pain, history of aneurysm TECHNIQUE: Transaxial computed tomographic images of the chest, abdomen, and pelvis were obtained wit hout intravenous contrast. The dose-length product (DLP) was 1866.80 mGy-cm. Automated exposure contr ol and iterative reconstruction technique were employed. COMPARISON: 02/12/2021 FINDINGS: CHEST CT: There is atelectasis of the lower lobes. No pleural effusion or pneumothorax is identified. No pathol ogically enlarged thoracic lymph nodes are identified. The heart size is normal. Calcified coronary a rtery atherosclerosis is noted. There is moderate thoracic spondylosis. ABDOMEN/PELVIS CT: Within the limitations of noncontrast examination, the liver, spleen, pancreas, and adrenal glands ar e normal. There is a 2 mm nonobstructing stone of the right kidney. Cysts of the right kidney measure up to 3 cm. The left kidney is unremarkable. The gallbladder is surgically absent. There is calcifie d atherosclerosis of the aorta and many of the other arteries. No abdominal aortic aneurysm is identi fied. No pathologically enlarged abdominal or pelvic lymph nodes are identified. There is no free int raperitoneal gas or evidence of bowel obstruction. Colonic diverticulosis is present without evidence of diverticulitis. There is moderate lumbar spondylosis. IMPRESSION: 1. No CT correlate for the patient's symptoms. Reviewed, dictated and finalized at location B. SPLITTER
--- NOTE | ~2021-12-29 | XR_ITS ---
EXAMINATION: XR chest 2V DATE: 12/29/2021 12:30 INDICATION: Dyspnea. TECHNIQUE: Frontal and lateral views of the chest were obtained. COMPARISON: Chest single view 02/12/2021, chest CT 02/12/2021 FINDINGS: There is mild atelectasis in the lower lung zones. No pleural effusion or pneumothorax. The heart size is normal. IMPRESSION: 1. Mild atelectasis in the lower lung zones. Reviewed, dictated and finalized at location A. BODY WORKER
--- NOTE | 2021-12-29 11:29 | PC.NURSE ---
pt c/o low back pain that has radiated up into her neck and her chest. noting some increased sob and dizziness. pt has history of ckd.
--- NOTE | 2021-12-29 11:31 | ECG_ITS ---
Measurements Intervals [place] Rate: 62 P: 46 ME: 183 QRS: -13 QRSD: 98 T: 53 QT: 416 QTc: 424 Interpretive Statements SINUS RHYTHM COMPARED TO ECG 02/12/2021 03:03:59 NO SIGNIFICANT CHANGES Electronically Signed On 12-29-2021 11:44:46 [facility] [employer]TER by Carlton Urias M.D.
[2021-12-29] MEDS: ASPIRIN 81 MG CHEWABLE TABLET 324 MG PO (11:44)
--- NOTE | 2021-12-29 11:45 | PC.NURSE ---
pt already had one 81mg aspirin this morning. gave pt 243mg of aspirin for a total of 324mg.
[2021-12-29 11:52] LABS: Basophils Absolute Auto 0.1 K/mm3 (0.0-0.1); Basophils Percent Auto 0.7 % (0.2-1.2); Eosinophils Absolute Auto 0.4 K/mm3 (0-0.3); Hematocrit 39.3 % (37.0-47.0); Hemoglobin 12.1 g/dL (12.0-15.0); Immature Granulocyte Absolute 0.02 K/mm3 (0.00-0.031); Immature Granulocyte Percent A 0.2 % (0-0.5); Lymphocytes Absolute Auto 2.06 K/mm3 (0.9-3.2); Lymphocytes Percent Auto 23.6 % (18.3-44.2); Mean Corpuscular HGB Conc 30.8 g/dl (32-36); Mean Corpuscular Hemoglobin 29.4 pg (26-34); Mean Corpuscular Volume 95.4 fl (80-100); Monocytes Absolute Auto 0.8 K/mm3 (0.1-0.6); Monocytes Percent Auto 8.6 % (2.6-8.5); Neutrophils Absolute Auto 5.4 K/mm3 (1.3-6.7); Neutrophils Percent Auto 61.9 % (45.5-73.1); Platelet Count Result 224 k/mm3 (150-375); Red Blood Count 4.12 M/mm3 (4.2-5.4); Red Cell Distribution Width 16.8 % (11.5-14.5); White Blood Count 8.7 K/mm3 (4.5-10.0)
[2021-12-29 12:08] LABS: Alanine Aminotransferase 12 U/L (4-35); Albumin Level 4.1 g/dL (3.5-5.1); Alkaline Phosphatase 109 U/L (38-126); Anion Gap 6 mmol/L (8-16); Aspartate Amino Transferase 24 U/L (14-36); Bilirubin,Total 0.6 mg/dL (0.2-1.3); Blood Urea Nitrogen 70 mg/dL (7-17); Calcium 9.9 mg/dL (8.4-10.2); Carbon Dioxide 34 mmol/L (22-30); Chloride 95 mmol/L (98-107); Estimated CRCL calculation 23 ml/min; Estimated Glomerular Filt Rate 14; Glucose 57 mg/dL (65-110); Lipase 112 U/L (23-300); Sodium 135 mmol/L (137-145)
[2021-12-29 12:12] LABS: Prothrombin Time 12.7 Seconds (11.1-14.7)
[2021-12-29 12:13] LABS: Partial Thromboplastin Time 25.5 SECONDS (22.3-36.8)
[2021-12-29] MEDS: DEXTROSE 50% 25 GM/50 ML SYRINGE (12:14)
[2021-12-29 12:15] LABS: Glucose Point of Care 69 mg/dl (65-105)
[2021-12-29 12:17] LABS: Troponin I < 0.012 ng/mL (0.000-0.034)
[2021-12-29] MEDS: IPRATROPIUM BR 0.02% INH SOLN 0.5 MG/2.5 ML VIAL INHALATION ×2 (13:03→20:48)
[2021-12-29] MEDS: ALBUTEROL SULFATE NEB 2.5 MG/0.5 ML INH 5 MG INHALATION ×2 (13:03→20:48)
[2021-12-29 13:26] LABS: Glucose Point of Care 133 mg/dl (65-105)
[2021-12-29 13:42] LABS: Glucose Point of Care 135 mg/dl (65-105)
[2021-12-29] MEDS: HYDROmorphone HCL INJ (*CRX) 1 MG/ML SYR 0.5 MG IV PUSH (14:04)
[2021-12-29 14:43] LABS: Carboxyhemoglobin 0.7 % THb (0-2.0); Fractional Inspired Oxygen 30 %; HCO3 ABG 31.5 mEq/l (22.0-26.0); Methemoglobin ABG 0.3 %THb (0-1.5); Oxygen Content ABG 15.7 %vol (16.0-22.0); Oxygen Saturation ABG 92.9 % (95.0-100.0); Oxyhemoglobin 91.3 % THb (90.0-100.0); PCO2 ABG 49.4 mmHg (35.0-45.0); PO2 ABG 64.9 mmHg (80.0-100.0); PO2 FiO2 Ratio Arterial Blood 2.16 %; Reduced Hemoglobin 7.7 %THb (0-5.0); Total Hemoglobin 12.2 g/dL (12.0-18.0); pH ABG 7.422 (7.350-7.450)
[2021-12-29 14:44] LABS: Device NASAL CANNULA; Liters per Minute 2.5 LPM; Modified Allen's Test Pass; Site Drawn RIGHT RADIAL
[2021-12-29] MEDS: methylPREDNISolone SOD SUCC 125 MG VIAL 80 MG IV PUSH (14:53)
[2021-12-29 15:15] LABS: Troponin I < 0.012 ng/mL (0.000-0.034)
[2021-12-29 16:46] LABS: Glucose Point of Care 171 mg/dl (65-105)
--- NOTE | 2021-12-29 16:49 | PC.NURSE ---
ordered pt dinner tray.
--- NOTE | 2021-12-29 17:06 | ED.SOB ---
HPI - SOB/Dyspnea General Chief Complaint: Shortness of Breath/Dyspnea Stated Complaint: SOB, back ache Time Seen by Provider: 12/29/21 12:29 Source: patient Limitations: no limitations History of Present Illness HPI Narrative: Patient is a 71-year-old female complaining of shortness of breath worse the past 2 days, states that she is chronically short of breath due to her history of COPD and asthma, on continuous home oxygen at 2 to 3 L. Patient also complaining of low back pain, admits to history of chronic low back pain, worse with movement, dull, 8 out of 10, nonradiating. Patient denies any recent injury. Patient denies any chest pain, abdominal pain, nausea, vomiting, diaphoresis, fever or chills. Patient denies any weakness, numbness or incontinence. Related Data Home Medications Medication Instructions Recorded Confirmed carvedilol 25 mg tablet 50 mg PO Q12H tablet 11/15/19 09/13/21 magnesium oxide 400 mg PO DAILY 11/15/19 09/13/21 allopurinol 300 mg tablet 300 mg PO DAILY 03/17/21 09/13/21 fluticasone propionate 50 2 spray INTRANASAL DAILY 03/17/21 09/13/21 mcg/actuation nasal spray,suspension furosemide 20 mg tablet 60 mg PO BID tablet 03/17/21 09/13/21 atorvastatin 10 mg PO HS 05/27/21 09/13/21 escitalopram oxalate 10 mg PO DAILY 05/27/21 09/13/21 nitroglycerin 0.4 mg sublingual 0.4 mg SUBLINGUAL Q5M PRN 07/21/21 09/13/21 tablet aspirin 81 mg PO DAILY 08/31/21 09/13/21 potassium chloride 20 meq PO DAILY 08/31/21 09/13/21 albuterol sulfate 2.5 mg INHALATION Q4H PRN 12/29/21 fexofenadine 180 mg PO DAILY 12/29/21 fluticasone furoate-vilanterol 1 inh INHALATION DAILY 12/29/21 [Breo Ellipta] guanfacine 2 mg PO HS 12/29/21 metolazone 5 mg PO DAILY 12/29/21 omega-3 fatty acids [Fish Oil] 1,000 mg PO DAILY 12/29/21 Allergies Allergy/AdvReac Type Severity Reaction Status Date / Time No Known Allergies Allergy Verified 12/29/21 11:31 Review of Systems Review of Systems: All systems reviewed & are unremarkable except as noted in HPI and below Constitutional: Constitutional: Denies body ache(s), Denies chills, Denies excessive sweating, Denies fatigue, Denies fever(s), Denies headache(s), Denies lethargy, Denies malaise, Denies weakness and Denies weight loss Eyes: Eyes: Denies blurry vision, Denies change in vision and Denies loss of vision ENT: Denies dizziness, Denies ear discharge, Denies headache(s), Denies lip swelling, Denies epistaxis, Denies nasal congestion, Denies neck pain, Denies throat swelling and Denies tongue swelling Cardiovascular: Cardiovascular: Denies chest pain, Denies chest pain at rest, Denies chest pain with activity, Denies diaphoresis, Denies rapid heart rate, Denies edema, Denies irregular heart rhythm, Denies lightheadedness and Denies palpitations Respiratory: Respiratory: Denies chest congestion, Denies cough and Denies hemoptysis Gastrointestinal: Gastrointestinal: Denies abdominal pain, Denies melena, Denies hematochezia, Denies diarrhea, Denies nausea, Denies vomiting and Denies hematemesis Musculoskeletal: Musculoskeletal: Denies abnormal gait, Denies deformity, Denies joint swelling, Denies neck pain and Denies numbness Neurologic: Denies Abnormal speech present, Denies abnormal gait, Denies confusion, Denies dizziness, Denies headache(s), Denies focal weakness, Denies loss of vision, Denies numbness, Denies Other visual disturbances, Denies Sensory deficit (Neuro) and Denies weakness Psychiatric: Psychiatric: Denies confusion, Denies depression, Denies auditory hallucinations, Denies homicidal ideation and Denies suicidal ideation Endocrine: Endocrine: Denies cold intolerance, Denies excessive sweating, Denies fatigue, Denies heat intolerance and Denies palpitations Hematologic/Lymphatic: Hematologic/Lymphatic: Denies easy bleeding and Denies easy bruising Allergic/Immunologic: Allergic/Immunologic: Denies lip swelling, Denies throat swelling and Denies tongue swellin
[2021-12-29] MEDS: HYDROcodone/acetaminophen (*CRX) 5-325 MG TABLET 1 TAB PO (17:15)
[2021-12-29 18:16] LABS: Troponin I < 0.012 ng/mL (0.000-0.034)
--- NOTE | 2021-12-29 18:30 | PM.IMHP ---
H&P: HPI History of Present Illness Date/Time: 12/29/21 18:30 Chief Complaint: Shortness of breath. Narrative: This is a very pleasant 71-year-old female with history of DVT/PE, asthma, chronic respiratory failure, obstructive sleep apnea on CPAP, hypertension, chronic kidney disease, type 2 diabetes mellitus, and hypothyroidism who presented to the emergency department from assisted living at [facility] for evaluation of shortness of breath. She endorses mild, chronic dyspnea on exertion though she is able to ambulate with her walker from her apartment to the dining room multiple times a day without much issue. Over the past 1 week or so she has been increasingly short of breath on lesser and lesser exertion and she has just not had much energy. She also reports intermittent palpitations and racing heart which have been occurring intermittently over the years however seemed to be more frequent, especially at nighttime. She refers to them as her ?heart hiccups? and she has had some mild chest tightness associated with those recently though not necessarily with exertion. Additionally she reports chronic low back pain though it has been much worse over the past 1 week and she has been taking extra-strength Tylenol with some benefit. Today while getting dressed for breakfast her pain was acutely worse on the right side and felt tight and achy and she was feeling somewhat lightheaded at that time. CT of the chest, abdomen, and pelvis done on arrival to the emergency department was unremarkable. EKG did not show any significant findings and her troponins have been negative. Her BUN and creatinine however are elevated from her baseline and with further questioning she was recently started on metolazone had increase in Lasix due to her shortness of breath and swelling. Currently she has no significant complaints and she denies fever, chills, sweats, cold and flu symptoms, pleuritic pain, nausea, vomiting diarrhea, and calf pain. No paresthesias, focal weakness, saddle anesthesia, or incontinence. Review of Systems Review of Systems: Twelve systems were reviewed and are negative except for as per HPI. [facility] Past Medical History Medical History (Updated 12/29/21 @ 23:36 by Laquita Plata PA-C) Aortic aneurysm Asthma Chronic kidney disease, stage 4 (severe) Chronic respiratory failure with hypoxia, on home oxygen therapy Deep venous thrombosis Diabetic neuropathy Hyperparathyroidism Hypertension Hypothyroidism Obstructive sleep apnea on CPAP Pulmonary embolism Type 2 diabetes mellitus Surgical History Surgical History (Updated 12/29/21 @ 23:15 by Laquita Plata PA-C) History of appendectomy History of cardiac catheterization History of cholecystectomy History of hysterectomy Family History Family History Mother Diabetes mellitus Family history of bipolar disorder Hypertension Father Family history of cardiovascular disease Cerebrovascular accident Family history of emphysema Other Family history of anemia Family history of congestive heart failure Family history of obesity Social History Social History (Updated 12/29/21 @ 23:16 by Laquita Plata PA-C) Social History: Surrogate decision maker: Beverly Flores, daughter. Code status: Full code. Smoking status: Never smoker Second hand tobacco smoke exposure: No Alcohol intake: never Substance use: never Substance use type: does not use Additional living arrangements comments: Assisted living at [facility]. Meds Home Medications and Allergies Home Medications Medication Instructions Recorded Confirmed Type carvedilol 25 mg tablet 50 mg PO Q12H tablet 11/15/19 12/29/21 History magnesium oxide 400 mg PO DAILY 11/15/19 12/29/21 History allopurinol 300 mg tablet 300 mg PO DAILY 03/17/21 12/29/21 History fluticasone propionate 50 2 spray INTRANASAL DAILY 03/17/21 12/29/21
--- NOTE | 2021-12-29 18:40 | PC.NURSE ---
This patient, Beto Bryan, was admitted to [facility] Surg Room 328-01. Patient/family oriented to hospital policies and general routines including ID bracelet, bed and alarms, visiting hours, pain management, procedures, bathroom and other care routines, personal items, smoking policy, room service/diet, and visiting hours. Report received by JANICE Burk. Information on how to activate the Rapid Response Team has been discussed. Patient/Family are encouraged to report perceived risks to care and to ask questions if they do not understand what they are told or what they should do.
--- NOTE | 2021-12-29 21:13 | PC.NURSE ---
This patient, Beto Bryan, was admitted to [facility] Surg Room 328-01. Patient/family oriented to hospital policies and general routines including ID bracelet, bed and alarms, visiting hours, pain management, procedures, bathroom and other care routines, personal items, smoking policy, room service/diet, and visiting hours. Information on how to activate the Rapid Response Team has been discussed. Patient/Family are encouraged to report perceived risks to care and to ask questions if they do not understand what they are told or what they should do.
[2021-12-30] VITALS (12 sets, daily range): BP systolic 137–157; BP diastolic 63–70; PULSE 64–87; RESP 20; TEMP 36.6–37.1; O2SAT 94–98
[2021-12-30] MEDS: SODIUM CHLORIDE 0.9% IV 500 ML 100 ML IV CONT (01:45)
[2021-12-30] MEDS: ACETAMINOPHEN 325 MG TABLET 650 MG PO ×3 (01:53→20:42)
[2021-12-30] MEDS: ALBUTEROL SULFATE NEB 2.5 MG/0.5 ML INH 5 MG INHALATION ×2 (02:47→07:58)
[2021-12-30] MEDS: IPRATROPIUM BR 0.02% INH SOLN 0.5 MG/2.5 ML VIAL INHALATION ×2 (02:47→07:58)
[2021-12-30] MEDS: LEVOTHYROXINE SODIUM 50 MCG TABLET PO (05:41)
[2021-12-30] MEDS: INSULIN GLARGINE (*BKC) 100 UNITS/ML 40 UNITS SUB-Q (06:04)
[2021-12-30 06:25] LABS: Glucose Point of Care 390 mg/dl (65-105)
[2021-12-30 06:25] LABS: Glucose Point of Care 376 mg/dl (65-105)
[2021-12-30] MEDS: FLUTICASONE/SALMETEROL 115-21 MCG INHALER 1 PUFF 2 PUFF INHALATION ×2 (07:58→20:36)
[2021-12-30 09:46] LABS: Hematocrit 38.7 % (37.0-47.0); Hemoglobin 12.5 g/dL (12.0-15.0); Mean Corpuscular HGB Conc 32.3 g/dl (32-36); Mean Corpuscular Hemoglobin 29.8 pg (26-34); Mean Corpuscular Volume 92.4 fl (80-100); Mean Platelet Volume 10.5 fl (7.4-10.4); Platelet Count Result 235 k/mm3 (150-375); Red Blood Count 4.19 M/mm3 (4.2-5.4); Red Cell Distribution Width 16.2 % (11.5-14.5); White Blood Count 10.9 K/mm3 (4.5-10.0)
[2021-12-30 10:05] LABS: Alanine Aminotransferase 14 U/L (4-35); Albumin Level 4.1 g/dL (3.5-5.1); Alkaline Phosphatase 130 U/L (38-126); Anion Gap 9 mmol/L (8-16); Aspartate Amino Transferase 22 U/L (14-36); Bilirubin,Total 0.6 mg/dL (0.2-1.3); Blood Urea Nitrogen 73 mg/dL (7-17); Calcium 9.8 mg/dL (8.4-10.2); Carbon Dioxide 26 mmol/L (22-30); Chloride 93 mmol/L (98-107); Creatine Kinase 148 U/L (30-135); Estimated CRCL calculation 24 ml/min; Estimated Glomerular Filt Rate 15; Glucose 392 mg/dL (65-110); Magnesium 1.9 mg/dL (1.6-2.3); Phosphorus 3.8 mg/dL (2.5-4.5); Potassium 5.4 mmol/L (3.4-5.0); Sodium 128 mmol/L (137-145)
[2021-12-30] MEDS: ENOXAPARIN 30 MG/0.3 ML SYRINGE SUB-Q (10:27)
[2021-12-30] MEDS: OMEGA 3 POLYUNSAT FATTY ACIDS 1 GM CAP PO (10:28)
[2021-12-30] MEDS: ASPIRIN 81 MG CHEWABLE TABLET PO (10:28)
[2021-12-30] MEDS: MAGNESIUM OXIDE 400 MG TABLET PO (10:29)
[2021-12-30] MEDS: PANTOPRAZOLE 40 MG TABLET PO ×2 (10:29→18:21)
[2021-12-30] MEDS: carvediloL 25 MG TABLET 50 MG PO ×2 (10:29→20:44)
[2021-12-30] MEDS: ESCITALOPRAM OXALATE 10 MG TABLET PO (10:29)
[2021-12-30] MEDS: LORATADINE 10 MG TABLET PO (10:29)
[2021-12-30] MEDS: FLUTICASONE PROPIONATE 0.05% NA SPR 16 GM BTL (*BKC) 2 SPRAY NASAL (10:30)
[2021-12-30] MEDS: INSULIN ASPART (*BKC) 100 UNITS/ML 18 UNITS SUB-Q ×3 (10:33→18:21)
--- NOTE | 2021-12-30 11:38 | P.PNIM_ITS ---
Progress Note: A&P Assessment and Plan (1) Acute kidney injury superimposed on chronic kidney disease: Code(s): N17.9 - Acute kidney failure, unspecified; N18.9 - Chronic kidney disease, unspecified Status: Acute Assessment and Plan: Likely due to over-diuresis and this may very well be the etiology of her recent fatigue. * Creatinine 3.2 on presentation, trended down to 3.0 today * Baseline appears to be 2.3-2.7 * She has received half a liter of normal saline. Avoiding further IV fluids due to her history of CHF to prevent volume overload * Continue to monitor renal function closely. Renally dose medications and avoid nephrotoxins * Consider renal ultrasound tomorrow and possibly nephrology consultation if no improvement/further worsening * Expect renal function to return to baseline. Repeat BMP tomorrow (2) Palpitations: Code(s): R00.2 - Palpitations Status: Acute Assessment and Plan: Intermittent but increasing in frequency associated with mild chest discomfort. * No issues with palpitations this admission. Patient is asymptomatic * TSH is pending * Echocardiogram completed, awaiting interpretation * Monitor electrolytes. Magnesium levels are within normal limits * Consider event monitor on discharge (3) Asthma: Code(s): J45.909 - Unspecified asthma, uncomplicated Status: Acute Assessment and Plan: She is at her baseline oxygen requirement (3L per nasal cannula) and is in no distress. * Received nebulizer and 1 time dose of IV Solu-Medrol in the ED and her symptoms resolved * She is asymptomatic at this time. No wheezing on exam. Not in acute exacerbation * No indication to continue steroids * Albuterol and Atrovent nebs available as needed * Continue Advair (4) Obstructive sleep apnea on CPAP: Code(s): G47.33 - Obstructive sleep apnea (adult) (pediatric); Z99.89 - Dependence on other enabling machines and devices Status: Acute Assessment and Plan: Patient is compliant with CPAP, 3 L bleed in. (5) Type 2 diabetes mellitus: Code(s): E11.9 - Type 2 diabetes mellitus without complications Status: Acute Assessment and Plan: A1c is 7.8 * Random blood sugar on presentation was 57, though the patient was asymptomatic * She received D50 in the ED and subsequently glucose has been quite elevated in the 390s, also probably worsened due to IV steroids * Received a dose of Lantus 40 units this morning * Continue home regimen Lantus 45 units q.h.s., NovoLog 18 units t.i.d. with meals * Continue Accu-Cheks, sliding scale insulin, and hypoglycemic protocol * Diabetic diet (6) Low back pain: Qualifiers: Back pain laterality: bilateral Chronicity: unspecified Sciatica presence: unspecified whether sciatica present Qualified Code(s): M54.50 - Low back pain, unspecified Code(s): M54.50 - Low back pain, unspecified Status: Acute Assessment and Plan: A chronic and ongoing problem for the patient. * No acute changes * Supportive care. Analgesics available as needed * Encourage ambulation (7) Hyperkalemia: Code(s): E87.5 - Hyperkalemia Status: Acute Assessment and Plan: Potassium is 5.4 * P.o. potassium supplement is on hold * She has received half liter of IV fluids in suspect this will improve slowly on its own * Will recheck potassium this afternoon. If remaining elevated, will proceed with appropriate management for correction (8) Hyponatremia:
--- NOTE | 2021-12-30 11:38 | PM.IMPN ---
Progress Note: A&P Assessment and Plan (1) Acute kidney injury superimposed on chronic kidney disease: Code(s): N17.9 - Acute kidney failure, unspecified; N18.9 - Chronic kidney disease, unspecified Status: Acute Assessment and Plan: Likely due to over-diuresis and this may very well be the etiology of her recent fatigue. Creatinine 3.2 on presentation, trended down to 3.0 today Baseline appears to be 2.3-2.7 She has received half a liter of normal saline. Avoiding further IV fluids due to her history of CHF to prevent volume overload Continue to monitor renal function closely. Renally dose medications and avoid nephrotoxins Consider renal ultrasound tomorrow and possibly nephrology consultation if no improvement/further worsening Expect renal function to return to baseline. Repeat BMP tomorrow (2) Palpitations: Code(s): R00.2 - Palpitations Status: Acute Assessment and Plan: Intermittent but increasing in frequency associated with mild chest discomfort. No issues with palpitations this admission. Patient is asymptomatic TSH is pending Echocardiogram completed, awaiting interpretation Monitor electrolytes. Magnesium levels are within normal limits Consider event monitor on discharge (3) Asthma: Code(s): J45.909 - Unspecified asthma, uncomplicated Status: Acute Assessment and Plan: She is at her baseline oxygen requirement (3L per nasal cannula) and is in no distress. Received nebulizer and 1 time dose of IV Solu-Medrol in the ED and her symptoms resolved She is asymptomatic at this time. No wheezing on exam. Not in acute exacerbation No indication to continue steroids Albuterol and Atrovent nebs available as needed Continue Advair (4) Obstructive sleep apnea on CPAP: Code(s): G47.33 - Obstructive sleep apnea (adult) (pediatric); Z99.89 - Dependence on other enabling machines and devices Status: Acute Assessment and Plan: Patient is compliant with CPAP, 3 L bleed in. (5) Type 2 diabetes mellitus: Code(s): E11.9 - Type 2 diabetes mellitus without complications Status: Acute Assessment and Plan: A1c is 7.8 Random blood sugar on presentation was 57, though the patient was asymptomatic She received D50 in the ED and subsequently glucose has been quite elevated in the 390s, also probably worsened due to IV steroids Received a dose of Lantus 40 units this morning Continue home regimen Lantus 45 units q.h.s., NovoLog 18 units t.i.d. with meals Continue Accu-Cheks, sliding scale insulin, and hypoglycemic protocol Diabetic diet (6) Low back pain: Qualifiers: Back pain laterality: bilateral Chronicity: unspecified Sciatica presence: unspecified whether sciatica present Qualified Code(s): M54.50 - Low back pain, unspecified Code(s): M54.50 - Low back pain, unspecified Status: Acute Assessment and Plan: A chronic and ongoing problem for the patient. No acute changes Supportive care. Analgesics available as needed Encourage ambulation (7) Hyperkalemia: Code(s): E87.5 - Hyperkalemia Status: Acute Assessment and Plan: Potassium is 5.4 P.o. potassium supplement is on hold She has received half liter of IV fluids in suspect this will improve slowly on its own Will recheck potassium this afternoon. If remaining elevated, will proceed with appropriate management for correction (8) Hyponatremia: Code(s): E87.1 - Hypo-osmolality and hyponatremia Status: Acute Assessment and Plan: Sodium 128 Secondary to hyperglycemia Sodium 133 corrected Continue to monitor BMP Subjective Date/time seen: 12/30/21 11:38 Interval history: Date of service: 12/30/2021 Beto Bryan is a 71-year-old female with a history of CKD, asthma, COPD, chronic respiratory failure on 3 L supplemental O2, type 2 diabetes mellitus, and severa
[2021-12-30 11:47] LABS: Hemoglobin A1C 7.8 % (<5.7)
[2021-12-30 11:52] LABS: Thyroid Stimulating Hormone Reflex 0.875 uIU/mL (0.465-4.68)
[2021-12-30 12:05] LABS: Glucose Point of Care 441 mg/dl (65-105)
[2021-12-30 12:30] LABS: Glucose Point of Care 402 mg/dl (65-105)
[2021-12-30] MEDS: INSULIN ASPART (*BKC) 100 UNITS/ML SUB-Q ×2 (12:48→18:21)
[2021-12-30 13:54] LABS: Potassium 4.9 mmol/L (3.4-5.0)
[2021-12-30 17:00] LABS: Glucose Point of Care 258 mg/dl (65-105)
[2021-12-30] MEDS: ATORVASTATIN 10 MG TABLET PO (20:43)
[2021-12-30] MEDS: guanFACINE HCL 1 MG TABLET 2 MG PO (20:44)
[2021-12-30] MEDS: INSULIN GLARGINE (*BKC) 100 UNITS/ML 45 UNITS SUB-Q (20:52)
--- NOTE | 2021-12-30 23:41 | ECHO_ITS ---
Patient Info Name: Beto Bryan Age: 71 years : 1950 Gender: Female Ht: 65 in Wt: 343 lbs BSA: 2.77 m2 HR: 89 bpm BP: 148 / 70 mmHg Heart Rhythm: Sinus Rhythm Technical Quality: Fair Exam Date: 12/30/2021 9:23 AM [facility]: [facility] Patient Status: Inpatient Admit Date: 12/29/2021 Staff Ordering Physician: Laquita Plata PA-C Fashion Adviser: Jennifer Ruvalcaba RDCS Attending Provider: Sabi Brennan PA-C Referring Physician: Sherlyn JORDAN; Exam Type: CA echo doppler color flow Study Info Indications - HTN PALPITATIONS ABDIAZIZ Complete two-dimensional, color flow and Doppler transthoracic echocardiogram is performed. Summary 1. Complete two-dimensional, color flow and Doppler transthoracic echocardiogram is performed. 2. Left ventricular chamber dimension is normal. 3. Left ventricular systolic function is normal, estimated at 65-70%. 4. There is mildly increased left ventricular wall thickness. 5. The left ventricular diastolic function is grade I diastolic dysfunction. 6. Left atrial chamber dimension is mildly enlarged. 7. There is no aortic valve stenosis. 8. There is trace mitral valve regurgitation. 9. There is trace tricuspid valve regurgitation. 10. No pulmonary hypertension, estimated pulmonary arterial systolic pressure is 32 mmHg. Left Ventricle Left ventricular chamber dimension is normal. Left ventricular systolic function is normal, estimated at 65-70%. There is mildly increased left ventricular wall thickness. The left ventricular diastolic function is grade I diastolic dysfunction. Right Ventricle Right ventricular chamber dimension is normal. Right ventricular systolic function is normal. Left Atria Left atrial chamber dimension is mildly enlarged. Right Atria Right atrial chamber dimension is normal. Aortic Valve The aortic valve is not well visualized. There is no aortic valve stenosis. There is trace aortic valve regurgitation. Pulmonic Valve The pulmonic valve is not well visualized. Mitral Valve The mitral valve has normal leaflets. There is trace mitral valve regurgitation. The mitral valve annulus is mildly calcified. Tricuspid Valve The tricuspid valve leaflets are normal. There is trace tricuspid valve regurgitation. No pulmonary hypertension, estimated pulmonary arterial systolic pressure is 32 mmHg. Pericardium/Pleural The pericardium appears normal. There is no pericardial effusion. Aorta The aortic root size at the sinus of Valsalva is normal. There is mild aortic atherosclerosis. Left Ventricular Outflow Tract Name Value Normal LVOT 2D LVOT Diameter 2.0 cm LVOT Doppler LVOT Peak Gradient 6 mmHg LVOT Mean Gradient 4 mmHg LVOT VTI 22 cm LVOT VTI/AV VTI Ratio 0.8 LVOT Stroke Volume 74 ml LVOT CO 18.9 l/min LVOT CI 6.8 l/min/m2 Pulmonic Valve
[2021-12-31] VITALS (13 sets, daily range): BP systolic 112–141; BP diastolic 55–82; PULSE 18–88; RESP 18–20; TEMP 36–36.5; O2SAT 94–97
[2021-12-31 03:17] LABS: Glucose Point of Care 237 mg/dl (65-105)
[2021-12-31 06:05] LABS: Hemoglobin 11.6 g/dL (12.0-15.0); Mean Corpuscular HGB Conc 30.5 g/dl (32-36); Mean Corpuscular Hemoglobin 29.6 pg (26-34); Mean Corpuscular Volume 96.9 fl (80-100); Mean Platelet Volume 10.4 fl (7.4-10.4); Platelet Count Result 214 k/mm3 (150-375); Red Blood Count 3.92 M/mm3 (4.2-5.4); Red Cell Distribution Width 16.7 % (11.5-14.5); White Blood Count 11.3 K/mm3 (4.5-10.0)
[2021-12-31] MEDS: LEVOTHYROXINE SODIUM 50 MCG TABLET PO (06:09)
[2021-12-31 06:16] LABS: Anion Gap 9 mmol/L (8-16); Blood Urea Nitrogen 85 mg/dL (7-17); Calcium 9.9 mg/dL (8.4-10.2); Carbon Dioxide 26 mmol/L (22-30); Chloride 95 mmol/L (98-107); Estimated CRCL calculation 24 ml/min; Estimated Glomerular Filt Rate 15; Glucose 203 mg/dL (65-110); Potassium 4.9 mmol/L (3.4-5.0); Sodium 130 mmol/L (137-145)
[2021-12-31 08:14] LABS: Glucose Point of Care 226 mg/dl (65-105)
[2021-12-31] MEDS: ASPIRIN 81 MG CHEWABLE TABLET PO (08:20)
[2021-12-31] MEDS: carvediloL 25 MG TABLET 50 MG PO ×2 (08:20→21:41)
[2021-12-31] MEDS: MAGNESIUM OXIDE 400 MG TABLET PO (08:20)
[2021-12-31] MEDS: OMEGA 3 POLYUNSAT FATTY ACIDS 1 GM CAP PO (08:20)
[2021-12-31] MEDS: LORATADINE 10 MG TABLET PO (08:20)
[2021-12-31] MEDS: ESCITALOPRAM OXALATE 10 MG TABLET PO (08:20)
[2021-12-31] MEDS: ENOXAPARIN 30 MG/0.3 ML SYRINGE SUB-Q (08:22)
[2021-12-31] MEDS: FLUTICASONE PROPIONATE 0.05% NA SPR 16 GM BTL (*BKC) 2 SPRAY NASAL (08:22)
[2021-12-31] MEDS: PANTOPRAZOLE 40 MG TABLET PO ×2 (08:22→17:05)
[2021-12-31] MEDS: INSULIN ASPART (*BKC) 100 UNITS/ML 18 UNITS SUB-Q ×3 (08:23→17:05)
[2021-12-31] MEDS: INSULIN ASPART (*BKC) 100 UNITS/ML SUB-Q (08:24)
[2021-12-31] MEDS: FLUTICASONE/SALMETEROL 115-21 MCG INHALER 1 PUFF 2 PUFF INHALATION ×2 (08:38→20:24)
--- NOTE | 2021-12-31 08:57 | WPDCDIQUERY2 ---
CDI Query Clarification Request 12/29-ER Physician documented: -Clinical Impression: Acute exacerbation of COPD with asthma, Acute kidney injury superimposed on chronic kidney disease 12/29-Chest x-ray results: -IMPRESSION: 1. Mild atelectasis in the lower lung zones. Please clarify if Acute exacerbation of COPD with asthma has been ruled in or ruled out or if unable to determine <Love Castellanos - Last Filed: 12/31/21 09:58> Unable to determine from my perspective. Pt. was not having any symptoms of asthma on the day that I saw her. <ILAN Etienne - Last Filed: 12/31/21 10:56>
[2021-12-31] MEDS: ACETAMINOPHEN 325 MG TABLET 650 MG PO ×2 (09:32→18:02)
[2021-12-31] MEDS: TOLNAFTATE 1% POWDER 45 GM BTL 1 APPLIC TOPICAL ×2 (09:39→21:40)
--- NOTE | 2021-12-31 10:29 | P.PNIM_ITS ---
Progress Note: A&P Assessment and Plan (1) Acute kidney injury superimposed on chronic kidney disease: Code(s): N17.9 - Acute kidney failure, unspecified; N18.9 - Chronic kidney disease, unspecified Status: Acute Assessment and Plan: Likely due to over-diuresis and this may very well be the etiology of her recent fatigue. * Creatinine 3.2 on presentation, remains at 3.10 today. BUN of 84. GFR of 15. * Baseline creatinine appears to be 2.3-2.7 * Fine titration needed so as to not overload cardiac function with hx of CHF. * ECHO was performed and results with normal LVSF with EF of 65-70%. * Continue to monitor renal function closely. Renally dose medications and avoid nephrotoxins * As renal function is not improving, Renal US was ordered and performed today and Nephrology is consulted. Appreciate their recommendations for treatment. Pt. reports that she does see a Interior Design Instructor at [facility]. * Accurate I&O to be performed. (2) Palpitations: Code(s): R00.2 - Palpitations Status: Acute Assessment and Plan: Intermittent but increasing in frequency associated with mild chest discomfort. * No issues with palpitations this admission. Patient is asymptomatic * TSH is normal at 0.875 * ECHO results as note. * Monitor electrolytes. Magnesium levels are within normal limits * Consider event monitor on discharge (3) Asthma: Code(s): J45.909 - Unspecified asthma, uncomplicated Status: Acute Assessment and Plan: She is at her baseline oxygen requirement (3L per nasal cannula) and is in no distress. * Received nebulizer and 1 time dose of IV Solu-Medrol in the ED and her symptoms resolved * She is asymptomatic at this time. No wheezing on exam. Not in acute exacerbation * No indication to continue steroids * Albuterol and Atrovent nebs available as needed * Continue Advair (4) Obstructive sleep apnea on CPAP: Code(s): G47.33 - Obstructive sleep apnea (adult) (pediatric); Z99.89 - Dependence on other enabling machines and devices Status: Acute Assessment and Plan: - Patient is compliant with CPAP, 3 L bleed in. (5) Type 2 diabetes mellitus: Code(s): E11.9 - Type 2 diabetes mellitus without complications Status: Acute Assessment and Plan: A1c is 7.8 * Random blood sugar on presentation was 57, though the patient was asymptomatic * She received D50 in the ED and subsequently glucose has been quite elevated in the 390s, also probably worsened due to IV steroids * Received a dose of Lantus 40 units this morning * Continue home regimen Lantus 45 units q.h.s., NovoLog 18 units t.i.d. with meals * Continue Accu-Checks, sliding scale insulin, and hypoglycemic protocol * Diabetic diet * Change SSI to high dose correction in conjunction with Lantus, and meal coverage. (6) Low back pain: Qualifiers: Back pain laterality: bilateral Chronicity: unspecified Sciatica presence: unspecified whether sciatica present Qualified Code(s): M54.50 - Low back pain, unspecified Code(s): M54.50 - Low back pain, unspecified Status: Acute Assessment and Plan: A chronic and ongoing problem for the patient. * No acute changes * Supportive care. Analgesics available as needed * Encourage ambulation (7) Hyperkalemia: Code(s): E87.5 - Hyperkalemia Status: Acute Assessment and Plan: Potassium is now normal and we are monitoring. * P.o. potassium supplement is on hold * She has received half
--- NOTE | 2021-12-31 10:29 | PM.IMPN ---
Progress Note: A&P Assessment and Plan (1) Acute kidney injury superimposed on chronic kidney disease: Code(s): N17.9 - Acute kidney failure, unspecified; N18.9 - Chronic kidney disease, unspecified Status: Acute Assessment and Plan: Likely due to over-diuresis and this may very well be the etiology of her recent fatigue. Creatinine 3.2 on presentation, remains at 3.10 today. BUN of 84. GFR of 15. Baseline creatinine appears to be 2.3-2.7 Fine titration needed so as to not overload cardiac function with hx of CHF. ECHO was performed and results with normal LVSF with EF of 65-70%. Continue to monitor renal function closely. Renally dose medications and avoid nephrotoxins As renal function is not improving, Renal US was ordered and performed today and Nephrology is consulted. Appreciate their recommendations for treatment. Pt. reports that she does see a Coding Tech at [facility]. Accurate I&O to be performed. (2) Palpitations: Code(s): R00.2 - Palpitations Status: Acute Assessment and Plan: Intermittent but increasing in frequency associated with mild chest discomfort. No issues with palpitations this admission. Patient is asymptomatic TSH is normal at 0.875 ECHO results as note. Monitor electrolytes. Magnesium levels are within normal limits Consider event monitor on discharge (3) Asthma: Code(s): J45.909 - Unspecified asthma, uncomplicated Status: Acute Assessment and Plan: She is at her baseline oxygen requirement (3L per nasal cannula) and is in no distress. Received nebulizer and 1 time dose of IV Solu-Medrol in the ED and her symptoms resolved She is asymptomatic at this time. No wheezing on exam. Not in acute exacerbation No indication to continue steroids Albuterol and Atrovent nebs available as needed Continue Advair (4) Obstructive sleep apnea on CPAP: Code(s): G47.33 - Obstructive sleep apnea (adult) (pediatric); Z99.89 - Dependence on other enabling machines and devices Status: Acute Assessment and Plan: - Patient is compliant with CPAP, 3 L bleed in. (5) Type 2 diabetes mellitus: Code(s): E11.9 - Type 2 diabetes mellitus without complications Status: Acute Assessment and Plan: A1c is 7.8 Random blood sugar on presentation was 57, though the patient was asymptomatic She received D50 in the ED and subsequently glucose has been quite elevated in the 390s, also probably worsened due to IV steroids Received a dose of Lantus 40 units this morning Continue home regimen Lantus 45 units q.h.s., NovoLog 18 units t.i.d. with meals Continue Accu-Checks, sliding scale insulin, and hypoglycemic protocol Diabetic diet Change SSI to high dose correction in conjunction with Lantus, and meal coverage. (6) Low back pain: Qualifiers: Back pain laterality: bilateral Chronicity: unspecified Sciatica presence: unspecified whether sciatica present Qualified Code(s): M54.50 - Low back pain, unspecified Code(s): M54.50 - Low back pain, unspecified Status: Acute Assessment and Plan: A chronic and ongoing problem for the patient. No acute changes Supportive care. Analgesics available as needed Encourage ambulation (7) Hyperkalemia: Code(s): E87.5 - Hyperkalemia Status: Acute Assessment and Plan: Potassium is now normal and we are monitoring. P.o. potassium supplement is on hold She has received half liter of IV fluids in suspect this will improve slowly on its own Will recheck potassium this afternoon. If remaining elevated, will proceed with appropriate management for correction (8) Hyponatremia: Code(s): E87.1 - Hypo-osmolality and hyponatremia Status: Acute Assessment and Plan: Sodium 130 Secondary to hyperglycemia Sodium 133 corrected Continue to monitor BMP Subjective Date/time seen: 12/31/21
[2021-12-31 11:38] LABS: Glucose Point of Care 170 mg/dl (65-105)
--- NOTE | 2021-12-31 12:42 | PM.CNNEP ---
Assessment and Plan Assessment and plan (1) BRADY (acute kidney injury): Code(s): N17.9 - Acute kidney failure, unspecified Status: Acute Assessment and Plan: acute versus progression of disease versus random fluctuations in kidney function? diuretics on hold s/p trial of IVFs renal ultrasound noted (no acute findings) check urine electrolytes, CPK, assess for proteinuria follow trend of repeat labs and UOP (2) Chronic kidney disease, stage IV (severe): Code(s): N18.4 - Chronic kidney disease, stage 4 (severe) Status: Chronic Assessment and Plan: baseline creatinine seems to run around 2.3 - 2.8mg/dl in the last year thought to be due to DM. HTN, and prior history of NSAID use follow with Dr. 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 electrolytes stable Echo results noted TSH okay consider event monitor on discharge (4) Asthma: Code(s): J45.909 - Unspecified asthma, uncomplicated Status: Chronic Assessment and Plan: clinically better at this time s/p IV steroids and nebulizer treatments follow clinical exam (5) Hypertension: Code(s): I10 - Essential (primary) hypertension Status: Chronic Assessment and Plan: reasonable control at this time follow trend of hemodynamics (6) Diabetes: Code(s): E11.9 - Type 2 diabetes mellitus without complications Status: Chronic Assessment and Plan: follow accuchecks glycemic control Will continue to follow. History of Present Illness Reason for Consult Consult date: 12/31/21 Chief Complaint Chief complaint: COPD, asthma, exacerbation, acute kidney injury History of Present Illness Narrative: The patient is a 71-year-old female with an extensive past medical history as outlined below who presented to [facility] Emergency room from her assisted living facility for further evaluation of shortness of breath.Next The patient states that she has chronic shortness of breath particularly with exertion although she is able to ambulate with her walker and do her activities of daily living without any significant issues or problems. However, she noted over the past week prior to her presentation to the emergency room that her baseline shortness of breath seemed to be slowly worsening particularly with lesser and lesser exertion all activities. Associated symptoms included intermittent palpitations and intermittent sensation of her heart racing. She also has issues and problems with low back pain but this appears to be a chronic issue although it was somewhat worsened last week as well. Given all these symptoms, she came to the ER for further evaluation Workup and evaluation emergency room demonstrated the patient to be hemodynamically stable but still with mild shortness of breath. Routine blood test demonstrated a BUN and creatinine somewhat higher than her baseline renal dysfunction but with no critical electrolyte abnormalities and her EKG did not show any significant ischemic changes and her troponins were negative. She does report that given her increasing symptoms of shortness of breath, her metolazone and Lasix for increased on the assumption this was related to her CHF/volume status. She apparently was noted be somewhat wheezy on exam in the ER he was treated with a dose of IV steroids and nebulizer treatments with significant improvement in her shortness of breath. Given her complex medical history and constellation of symptoms as well as laboratory findings as noted, she was admitted the hospital for further evaluation and therapy. Since her admission, is been noted that her kidney function has not really improved back to its normal baseline but she clinically appears to be doing somewhat better from a respiratory standpo
[2021-12-31 17:18] LABS: Glucose Point of Care 153 mg/dl (65-105)
[2021-12-31 20:53] LABS: Glucose Point of Care 166 mg/dl (65-105)
[2021-12-31] MEDS: ATORVASTATIN 10 MG TABLET PO (21:40)
[2021-12-31] MEDS: guanFACINE HCL 1 MG TABLET 2 MG PO (21:40)
[2022-01-01] VITALS (10 sets, daily range): BP systolic 105–129; BP diastolic 54–71; PULSE 56–78; RESP 14–20; TEMP 36.2–36.5; O2SAT 95–100
[2022-01-01] MEDS: ACETAMINOPHEN 325 MG TABLET 650 MG PO ×3 (01:36→22:44)
[2022-01-01] MEDS: LEVOTHYROXINE SODIUM 50 MCG TABLET PO (05:20)
[2022-01-01 06:18] LABS: Basophils Absolute Auto 0.1 K/mm3 (0.0-0.1); Basophils Percent Auto 0.7 % (0.2-1.2); Eosinophils Absolute Auto 0.3 K/mm3 (0-0.3); Eosinophils Percent Auto 2.9 % (0-4.4); Hematocrit 40.9 % (37.0-47.0); Immature Granulocyte Absolute 0.03 K/mm3 (0.00-0.031); Immature Granulocyte Percent A 0.3 % (0-0.5); Lymphocytes Absolute Auto 2.58 K/mm3 (0.9-3.2); Mean Corpuscular HGB Conc 31.8 g/dl (32-36); Mean Corpuscular Hemoglobin 31.1 pg (26-34); Mean Corpuscular Volume 97.8 fl (80-100); Mean Platelet Volume 10.4 fl (7.4-10.4); Monocytes Absolute Auto 0.8 K/mm3 (0.1-0.6); Monocytes Percent Auto 9.2 % (2.6-8.5); Neutrophils Absolute Auto 5.1 K/mm3 (1.3-6.7); Neutrophils Percent Auto 57.9 % (45.5-73.1); Platelet Count Result 237 k/mm3 (150-375); Red Blood Count 4.18 M/mm3 (4.2-5.4); Red Cell Distribution Width 16.8 % (11.5-14.5); White Blood Count 8.9 K/mm3 (4.5-10.0)
[2022-01-01 06:24] LABS: Alanine Aminotransferase 12 U/L (4-35); Albumin Level 3.9 g/dL (3.5-5.1); Alkaline Phosphatase 103 U/L (38-126); Anion Gap 8 mmol/L (8-16); Aspartate Amino Transferase 25 U/L (14-36); Bilirubin,Total 0.6 mg/dL (0.2-1.3); Blood Urea Nitrogen 86 mg/dL (7-17); Calcium 9.7 mg/dL (8.4-10.2); Carbon Dioxide 27 mmol/L (22-30); Chloride 97 mmol/L (98-107); Creatine Kinase 102 U/L (30-135); Estimated CRCL calculation 22 ml/min; Estimated Glomerular Filt Rate 13; Glucose 201 mg/dL (65-110); Magnesium 2.4 mg/dL (1.6-2.3); Potassium 4.2 mmol/L (3.4-5.0); Sodium 132 mmol/L (137-145)
[2022-01-01] MEDS: OMEGA 3 POLYUNSAT FATTY ACIDS 1 GM CAP PO (08:04)
[2022-01-01] MEDS: ENOXAPARIN 30 MG/0.3 ML SYRINGE SUB-Q (08:04)
[2022-01-01] MEDS: carvediloL 25 MG TABLET 50 MG PO ×2 (08:05→20:19)
[2022-01-01] MEDS: ASPIRIN 81 MG CHEWABLE TABLET PO (08:06)
[2022-01-01] MEDS: LORATADINE 10 MG TABLET PO (08:06)
[2022-01-01] MEDS: ESCITALOPRAM OXALATE 10 MG TABLET PO (08:06)
[2022-01-01] MEDS: MAGNESIUM OXIDE 400 MG TABLET PO (08:06)
[2022-01-01] MEDS: PANTOPRAZOLE 40 MG TABLET PO ×2 (08:07→17:03)
[2022-01-01 08:09] LABS: Glucose Point of Care 211 mg/dl (65-105)
[2022-01-01] MEDS: INSULIN ASPART (*BKC) 100 UNITS/ML 18 UNITS SUB-Q ×3 (08:09→17:00)
[2022-01-01] MEDS: INSULIN ASPART (*BKC) 100 UNITS/ML SUB-Q (08:10)
[2022-01-01] MEDS: TOLNAFTATE 1% POWDER 45 GM BTL 1 APPLIC TOPICAL ×2 (08:17→20:28)
[2022-01-01] MEDS: FLUTICASONE/SALMETEROL 115-21 MCG INHALER 1 PUFF 2 PUFF INHALATION ×2 (09:05→19:50)
[2022-01-01] MEDS: FLUTICASONE PROPIONATE 0.05% NA SPR 16 GM BTL (*BKC) 2 SPRAY NASAL (09:26)
--- NOTE | 2022-01-01 10:29 | P.PNNP_ITS ---
Progress Note: A&P Assessment and Plan (1) BRADY (acute kidney injury): Code(s): N17.9 - Acute kidney failure, unspecified Status: Acute Assessment and Plan: * acute versus progression of disease versus random fluctuations in kidney function? * renal ultrasound is okay. * Urine electrolytes not done * CK is normal * diuretics on hold * Creatinine is a little higher today. * will repeat urine electrolytes and try some IV fluids today. (2) Chronic kidney disease, stage IV (severe): Code(s): N18.4 - Chronic kidney disease, stage 4 (severe) Status: Chronic Assessment and Plan: * baseline creatinine seems to run around 2.3 - 2.8mg/dl in the last year * thought to be due to DM. HTN, and prior history of NSAID use * follow with Dr. 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 * Continue same meds (6) Diabetes: Code(s): E11.9 - Type 2 diabetes mellitus without complications Status: Chronic Assessment and Plan: * on Accu-Cheks and sliding-scale insulin per hospitalist Will continue to follow. Subjective Date/time seen: 01/01/22 10:29 Interval history: Beto is feeling better. Breathing is better. Good air movement. Eating is okay Review of Systems Cardiovascular: Cardiovascular: Reports no additional cardiovascular complaints Respiratory: Respiratory: Reports no additional respiratory complaints Gastrointestinal: Gastrointestinal: Reports no additional gastrointestinal complaints Genitourinary: Genitourinary: Reports no additional female genitourinary complaints Exam Narrative: WDWN in NAD skin no rash head ncat lungs clear without wheezes even on forced expiration cor reg no rub abd BS+ nontender and soft ext no edema. Objective Data Vital Signs Vital Signs: Vital Signs - 24 hr 12/31/21 14:00 12/31/21 20:00 12/31/21 20:24 Temperature 36.3 C L Pulse Rate 88 Respiratory Rate 20 Blood Pressure 112/68 Pulse Oximetry 95 96 94 12/31/21 21:41 12/31/21 22:00 12/31/21 22:05 Temperature 36.4 C L 36.0 C L Pulse Rate 65 57 L 58 L Respiratory Rate 20 18 Blood Pressure 129/62 119/64 Pulse Oximetry 97 96 12/31/21 22:10 12/31/21 23:10 01/01/22 03:30 Temperature 36.1 C L Pulse Rate 82 66 63 Respiratory Rate 18 Blood Pressure 120/82 Pulse Oximetry 96 96 96 01/01/22 06:00 01/01/22 08:05 01/01/22 09:06 Temperature 36.5 C Pulse Rate 58 L 78 Respiratory Rate 18 Blood Pressure 119/58 L Pulse Oxime
--- NOTE | 2022-01-01 10:29 | PM.PNNEP ---
Progress Note: A&P Assessment and Plan (1) BRADY (acute kidney injury): Code(s): N17.9 - Acute kidney failure, unspecified Status: Acute Assessment and Plan: acute versus progression of disease versus random fluctuations in kidney function? renal ultrasound is okay. Urine electrolytes not done CK is normal diuretics on hold Creatinine is a little higher today. will repeat urine electrolytes and try some IV fluids today. (2) Chronic kidney disease, stage IV (severe): Code(s): N18.4 - Chronic kidney disease, stage 4 (severe) Status: Chronic Assessment and Plan: baseline creatinine seems to run around 2.3 - 2.8mg/dl in the last year thought to be due to DM. HTN, and prior history of NSAID use follow with Dr. 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 Continue same meds (6) Diabetes: Code(s): E11.9 - Type 2 diabetes mellitus without complications Status: Chronic Assessment and Plan: on Accu-Cheks and sliding-scale insulin per hospitalist Will continue to follow. Subjective Date/time seen: 01/01/22 10:29 Interval history: Beto is feeling better. Breathing is better. Good air movement. Eating is okay Review of Systems Cardiovascular: Cardiovascular: Reports no additional cardiovascular complaints Respiratory: Respiratory: Reports no additional respiratory complaints Gastrointestinal: Gastrointestinal: Reports no additional gastrointestinal complaints Genitourinary: Genitourinary: Reports no additional female genitourinary complaints Exam Narrative: WDWN in NAD skin no rash head ncat lungs clear without wheezes even on forced expiration cor reg no rub abd BS+ nontender and soft ext no edema. Objective Data Vital Signs Vital Signs: Vital Signs - 24 hr 12/31/21 14:00 12/31/21 20:00 12/31/21 20:24 Temperature 36.3 C L Pulse Rate 88 Respiratory Rate 20 Blood Pressure 112/68 Pulse Oximetry 95 96 94 12/31/21 21:41 12/31/21 22:00 12/31/21 22:05 Temperature 36.4 C L 36.0 C L Pulse Rate 65 57 L 58 L Respiratory Rate 20 18 Blood Pressure 129/62 119/64 Pulse Oximetry 97 96 12/31/21 22:10 12/31/21 23:10 01/01/22 03:30 Temperature 36.1 C L Pulse Rate 82 66 63 Respiratory Rate 18 Blood Pressure 120/82 Pulse Oximetry 96 96 96 01/01/22 06:00 01/01/22 08:05 01/01/22 09:06 Temperature 36.5 C Pulse Rate 58 L 78 Respiratory Rate 18 Blood Pressure 119/58 L Pulse Oximetry 96 95 95 Intake/Output Intake/Output: Intake & Output 12/29/21 12/30/21 12/31/21 01/01/22 23:59 23:59 23:59 23:59 Intake Total 2100 1610 940 Output Total 900 1001 1150 Balance 1200 609 -210 Meds/Results Medications: Active Medications Generic Name Dose Route Start Last Admin Trade Name Freq PRN Reason Stop Dose Admin Acetaminophen 650 mg 12/29/21 23:42 01/01/22 08:06 Acetaminophen 325 Mg Tablet PO 650 mg Q6H PRN Administration Mild Pain (1-3) or Fever Albuterol 5 mg 12/30/21 12:01 Albuterol Sulfate Neb 2.5 Mg/0.5 Ml Inh INHALATION Q6HRT PRN Shortness breath Aspirin 81 mg 12/30/21 08:00 01/01/22 08:06 Aspirin 81 Mg Chewable Tablet PO 81 mg DAILY@0800 KAELA Administration Atorvastatin Calcium 10 mg 12/30/21 21:00 12/31/21 21:40 Atorvastatin 1
--- NOTE | 2022-01-01 10:39 | P.PNIM_ITS ---
Progress Note: A&P Assessment and Plan (1) Acute kidney injury superimposed on chronic kidney disease: Code(s): N17.9 - Acute kidney failure, unspecified; N18.9 - Chronic kidney disease, unspecified Status: Acute Assessment and Plan: Likely due to over-diuresis and this may very well be the etiology of her recent fatigue. * Creatinine with marginal increase today to 3.4. * Baseline creatinine appears to be 2.3-2.7 * Fine titration needed so as to not overload cardiac function with hx of CHF. * ECHO was performed and results with normal LVSF with EF of 65-70%. * Continue to monitor renal function closely. Renally dose medications and avoid nephrotoxins * Renal US yesterday was unremarkable. ' * Nephrology is covering, appreciate their continued recommendations for treatment. Pt. to receive a trial of IVF today. NS at 75 ml/hr was ordered today and urine electrolytes. I spoke with Pt's nurse and she is going to follow up on why the electrolytes did not get performed as ordered yesterday. Will evaluate once resulted. * Accurate I&O to be performed. (2) Palpitations: Code(s): R00.2 - Palpitations Status: Resolved Assessment and Plan: Intermittent but increasing in frequency associated with mild chest discomfort. * No issues with palpitations this admission. Patient is asymptomatic * TSH is normal at 0.875 * ECHO results as note. * Monitor electrolytes. Magnesium levels are within normal limits * Consider event monitor on discharge - RESOLVED (3) Asthma: Code(s): J45.909 - Unspecified asthma, uncomplicated Status: Chronic Assessment and Plan: She is at her baseline oxygen requirement (3L per nasal cannula) and is in no distress. * Received nebulizer and 1 time dose of IV Solu-Medrol in the ED and her symptoms resolved * She is asymptomatic at this time. No wheezing on exam. Not in acute exacerbation * No indication to continue steroids * Albuterol and Atrovent nebs available as needed * Continue Advair * Not problematic currently. (4) Obstructive sleep apnea on CPAP: Code(s): G47.33 - Obstructive sleep apnea (adult) (pediatric); Z99.89 - Dependence on other enabling machines and devices Status: Acute Assessment and Plan: - Patient is compliant with CPAP, 3 L bleed in. - No signs of respiratory distress. (5) Type 2 diabetes mellitus: Code(s): E11.9 - Type 2 diabetes mellitus without complications Status: Acute Assessment and Plan: A1c is 7.8 * Random blood sugar on presentation was 57, though the patient was asymptomatic * She received D50 in the ED and subsequently glucose has been quite elevated in the 390s, also probably worsened due to IV steroids * Received a dose of Lantus 40 units this morning * Continue home regimen with exception of increasing Lantus from 45 units q.h.s. to 48 units QHS, NovoLog 18 units t.i.d. with meals * Continue Accu-Checks, sliding scale insulin, and hypoglycemic protocol * Diabetic diet * Change SSI to high dose correction in conjunction with Lantus, and meal coverage. * Glucose remains higher this AM even with the changes implemented yesterday, but are overall in a better ranged than what they were. Her fasting glucose this AM was 201. Will change her Lantus to 48 units HS from 45 units. (6) Low back pain: Qualifiers: Back pain laterality: bilateral Chronicity: unspecified Sciatica presence: unspecified whether sciatica present Qualified Code(s): M54.50 - Low back pain, unspecified Code(s): M
--- NOTE | 2022-01-01 10:39 | PM.IMPN ---
Progress Note: A&P Assessment and Plan (1) Acute kidney injury superimposed on chronic kidney disease: Code(s): N17.9 - Acute kidney failure, unspecified; N18.9 - Chronic kidney disease, unspecified Status: Acute Assessment and Plan: Likely due to over-diuresis and this may very well be the etiology of her recent fatigue. Creatinine with marginal increase today to 3.4. Baseline creatinine appears to be 2.3-2.7 Fine titration needed so as to not overload cardiac function with hx of CHF. ECHO was performed and results with normal LVSF with EF of 65-70%. Continue to monitor renal function closely. Renally dose medications and avoid nephrotoxins Renal US yesterday was unremarkable. ' Nephrology is covering, appreciate their continued recommendations for treatment. Pt. to receive a trial of IVF today. NS at 75 ml/hr was ordered today and urine electrolytes. I spoke with Pt's nurse and she is going to follow up on why the electrolytes did not get performed as ordered yesterday. Will evaluate once resulted. Accurate I&O to be performed. (2) Palpitations: Code(s): R00.2 - Palpitations Status: Resolved Assessment and Plan: Intermittent but increasing in frequency associated with mild chest discomfort. No issues with palpitations this admission. Patient is asymptomatic TSH is normal at 0.875 ECHO results as note. Monitor electrolytes. Magnesium levels are within normal limits Consider event monitor on discharge - RESOLVED (3) Asthma: Code(s): J45.909 - Unspecified asthma, uncomplicated Status: Chronic Assessment and Plan: She is at her baseline oxygen requirement (3L per nasal cannula) and is in no distress. Received nebulizer and 1 time dose of IV Solu-Medrol in the ED and her symptoms resolved She is asymptomatic at this time. No wheezing on exam. Not in acute exacerbation No indication to continue steroids Albuterol and Atrovent nebs available as needed Continue Advair Not problematic currently. (4) Obstructive sleep apnea on CPAP: Code(s): G47.33 - Obstructive sleep apnea (adult) (pediatric); Z99.89 - Dependence on other enabling machines and devices Status: Acute Assessment and Plan: - Patient is compliant with CPAP, 3 L bleed in. - No signs of respiratory distress. (5) Type 2 diabetes mellitus: Code(s): E11.9 - Type 2 diabetes mellitus without complications Status: Acute Assessment and Plan: A1c is 7.8 Random blood sugar on presentation was 57, though the patient was asymptomatic She received D50 in the ED and subsequently glucose has been quite elevated in the 390s, also probably worsened due to IV steroids Received a dose of Lantus 40 units this morning Continue home regimen with exception of increasing Lantus from 45 units q.h.s. to 48 units QHS, NovoLog 18 units t.i.d. with meals Continue Accu-Checks, sliding scale insulin, and hypoglycemic protocol Diabetic diet Change SSI to high dose correction in conjunction with Lantus, and meal coverage. Glucose remains higher this AM even with the changes implemented yesterday, but are overall in a better ranged than what they were. Her fasting glucose this AM was 201. Will change her Lantus to 48 units HS from 45 units. (6) Low back pain: Qualifiers: Back pain laterality: bilateral Chronicity: unspecified Sciatica presence: unspecified whether sciatica present Qualified Code(s): M54.50 - Low back pain, unspecified Code(s): M54.50 - Low back pain, unspecified Status: Acute Assessment and Plan: A chronic and ongoing problem for the patient. No acute changes Supportive care. Analgesics available as needed PT has evaluated and have no recommendations for continued therapy at this time. Encourage ambulation (7) Hyperkalemia: Code(s): E87.5 - Hyperkalemia Status: Acute Assessment and Plan:
[2022-01-01] MEDS: SENNOSIDES 8.6 MG TABLET PO (11:02)
[2022-01-01] MEDS: SODIUM CHLORIDE 0.9% IV 1,000 ML 75 ML IV CONT (11:02)
[2022-01-01 12:11] LABS: Glucose Point of Care 185 mg/dl (65-105)
[2022-01-01 13:14] LABS: Creatinine Urine 70.9 mg/dL; Total Protein Urine Random 11 mg/dL; Ur Ttl Prot Creatinine Ratio 0.16 mg/mg (0-0.20)
[2022-01-01 13:36] LABS: Sodium Urine Random 46 meq/L
[2022-01-01 15:06] LABS: Eosinophil Urine None Seen % (None Seen)
[2022-01-01 16:41] LABS: Glucose Point of Care 170 mg/dl (65-105)
[2022-01-01] MEDS: ATORVASTATIN 10 MG TABLET PO (20:19)
[2022-01-01] MEDS: guanFACINE HCL 1 MG TABLET 2 MG PO (20:19)
[2022-01-01] MEDS: INSULIN GLARGINE (*BKC) 100 UNITS/ML 48 UNITS SUB-Q (20:28)
[2022-01-01 22:10] LABS: Glucose Point of Care 133 mg/dl (65-105)
[2022-01-02] VITALS (13 sets, daily range): BP systolic 111–160; BP diastolic 51–66; PULSE 60–74; RESP 16–18; TEMP 35.5–36.6; O2SAT 96–98
[2022-01-02] MEDS: LEVOTHYROXINE SODIUM 50 MCG TABLET PO (06:03)
[2022-01-02 06:28] LABS: Basophils Absolute Auto 0.1 K/mm3 (0.0-0.1); Basophils Percent Auto 0.6 % (0.2-1.2); Eosinophils Absolute Auto 0.3 K/mm3 (0-0.3); Eosinophils Percent Auto 3.3 % (0-4.4); Hematocrit 38.3 % (37.0-47.0); Hemoglobin 11.6 g/dL (12.0-15.0); Immature Granulocyte Absolute 0.03 K/mm3 (0.00-0.031); Immature Granulocyte Percent A 0.3 % (0-0.5); Lymphocytes Absolute Auto 2.32 K/mm3 (0.9-3.2); Lymphocytes Percent Auto 25.6 % (18.3-44.2); Mean Corpuscular HGB Conc 30.3 g/dl (32-36); Mean Corpuscular Hemoglobin 29.4 pg (26-34); Mean Corpuscular Volume 97.2 fl (80-100); Mean Platelet Volume 10.1 fl (7.4-10.4); Monocytes Absolute Auto 0.9 K/mm3 (0.1-0.6); Monocytes Percent Auto 9.5 % (2.6-8.5); Neutrophils Absolute Auto 5.5 K/mm3 (1.3-6.7); Neutrophils Percent Auto 60.7 % (45.5-73.1); Platelet Count Result 207 k/mm3 (150-375); Red Blood Count 3.94 M/mm3 (4.2-5.4); Red Cell Distribution Width 16.6 % (11.5-14.5); White Blood Count 9.1 K/mm3 (4.5-10.0)
[2022-01-02 06:42] LABS: Alanine Aminotransferase 13 U/L (4-35); Albumin Level 3.8 g/dL (3.5-5.1); Alkaline Phosphatase 98 U/L (38-126); Anion Gap 9 mmol/L (8-16); Aspartate Amino Transferase 21 U/L (14-36); Bilirubin,Total 0.6 mg/dL (0.2-1.3); Blood Urea Nitrogen 86 mg/dL (7-17); Calcium 9.6 mg/dL (8.4-10.2); Carbon Dioxide 25 mmol/L (22-30); Chloride 98 mmol/L (98-107); Estimated CRCL calculation 24 ml/min; Estimated Glomerular Filt Rate 15; Glucose 160 mg/dL (65-110); Magnesium 2.3 mg/dL (1.6-2.3); Phosphorus 4.7 mg/dL (2.5-4.5); Potassium 4.3 mmol/L (3.4-5.0); Sodium 132 mmol/L (137-145)
[2022-01-02 07:34] LABS: Glucose Point of Care 179 mg/dl (65-105)
[2022-01-02] MEDS: carvediloL 25 MG TABLET 50 MG PO ×2 (07:57→21:17)
[2022-01-02] MEDS: SENNOSIDES 8.6 MG TABLET PO (07:57)
[2022-01-02] MEDS: MAGNESIUM OXIDE 400 MG TABLET PO (07:57)
[2022-01-02] MEDS: OMEGA 3 POLYUNSAT FATTY ACIDS 1 GM CAP PO (07:57)
[2022-01-02] MEDS: ESCITALOPRAM OXALATE 10 MG TABLET PO (07:57)
[2022-01-02] MEDS: PANTOPRAZOLE 40 MG TABLET PO ×2 (07:58→16:53)
[2022-01-02] MEDS: ASPIRIN 81 MG CHEWABLE TABLET PO (07:58)
[2022-01-02] MEDS: LORATADINE 10 MG TABLET PO (07:59)
[2022-01-02] MEDS: ENOXAPARIN 30 MG/0.3 ML SYRINGE SUB-Q (07:59)
[2022-01-02] MEDS: FLUTICASONE PROPIONATE 0.05% NA SPR 16 GM BTL (*BKC) 2 SPRAY NASAL (08:00)
[2022-01-02] MEDS: INSULIN ASPART (*BKC) 100 UNITS/ML 18 UNITS SUB-Q ×3 (08:07→16:55)
[2022-01-02] MEDS: TOLNAFTATE 1% POWDER 45 GM BTL 1 APPLIC TOPICAL ×2 (08:10→21:19)
[2022-01-02] MEDS: FLUTICASONE/SALMETEROL 115-21 MCG INHALER 1 PUFF 2 PUFF INHALATION ×2 (08:13→20:09)
--- NOTE | 2022-01-02 10:26 | P.PNNP_ITS ---
Progress Note: A&P Assessment and Plan (1) BRADY (acute kidney injury): Code(s): N17.9 - Acute kidney failure, unspecified Status: Acute Assessment and Plan: * acute versus progression of disease versus random fluctuations in kidney function? * renal ultrasound is okay. * Urine electrolytes not done * CK is normal * diuretics on hold * Creatinine is slightly better today. * Will give small amount of IV fluids today. She is eating just okay but not great. (2) Chronic kidney disease, stage IV (severe): Code(s): N18.4 - Chronic kidney disease, stage 4 (severe) Status: Chronic Assessment and Plan: * baseline creatinine seems to run around 2.3 - 2.8mg/dl in the last year * thought to be due to DM. HTN, and prior history of NSAID use * follow with Dr. Robbin Hester as an outpatient (3) Palpitations: Code(s): R00.2 - Palpitations Status: Resolved Assessment and Plan: * as noted [employer] -- no issues since admission * electrolytes stable * Echo results noted * TSH okay (4) Asthma: Code(s): J45.909 - Unspecified asthma, uncomplicated Status: Chronic Assessment and Plan: * clinically better at this time * s/p IV steroids and nebulizer treatments * no wheezing now (5) Hypertension: Code(s): I10 - Essential (primary) hypertension Status: Chronic Assessment and Plan: * blood pressure mostly 110-120. * Rare spike to 160. (6) Diabetes: Code(s): E11.9 - Type 2 diabetes mellitus without complications Status: Chronic Assessment and Plan: * on Accu-Cheks and sliding-scale insulin per hospitalist Subjective Date/time seen: 01/02/22 10:26 Interval history: Beto is feeling better. Breathing is doing well. No chest pain. Sitting up in a chair. She wants to get up and walk in the halls. Exam Narrative: WDWN in NAD skin no rash head ncat lungs clear without wheezes even on forced expiration cor reg no rub or gallop abd BS+ nontender and soft ext no edema. Objective Data Vital Signs Vital Signs: Vital Signs - 24 hr 01/01/22 14:00 01/01/22 16:16 01/01/22 20:00 Temperature 36.4 C L 36.2 C L Pulse Rate 56 L 72 60 Respiratory Rate 14 16 18 Blood Pressure 117/59 L 105/63 129/62 Pulse Oximetry 97 97 95 01/01/22 20:05 01/01/22 22:00 01/02/22 02:05 Temperature 36.2 C L 36.2 C L Pulse Rate 64 64 66 Respiratory Rate 18 18 Blood Pressure 125/71 125/71 Pulse Oximetry 95 95 97 01/02/22 06:00 01/02/22 07:57 01/02/22 08:00 Temperature 35.8 C L Pulse Rate 60 60 Respiratory Rate 18 Blood Pressure 160/57 H Pulse Oximetry 96 96 01/02/22 08:16 Temperature Pulse Rate Respiratory Rate Blood Pressure Pulse Oximetry 98 Intake/Output Intake/Output: Intake & Output 12/30/21 12/31/21 01/01/22 01/02/22 23:59 23:59 23:59 23:59 Intake Total 2100 1610 2160 690 Output Total 900 1001 2050 1804 Balance 1200 609 110 1114 Meds/Results Medications: Active Medications Generic Name Dose R
--- NOTE | 2022-01-02 10:26 | PM.PNNEP ---
Progress Note: A&P Assessment and Plan (1) BRADY (acute kidney injury): Code(s): N17.9 - Acute kidney failure, unspecified Status: Acute Assessment and Plan: acute versus progression of disease versus random fluctuations in kidney function? renal ultrasound is okay. Urine electrolytes not done CK is normal diuretics on hold Creatinine is slightly better today. Will give small amount of IV fluids today. She is eating just okay but not great. (2) Chronic kidney disease, stage IV (severe): Code(s): N18.4 - Chronic kidney disease, stage 4 (severe) Status: Chronic Assessment and Plan: baseline creatinine seems to run around 2.3 - 2.8mg/dl in the last year thought to be due to DM. HTN, and prior history of NSAID use follow with Dr. Robbin Hester as an outpatient (3) Palpitations: Code(s): R00.2 - Palpitations Status: Resolved Assessment and Plan: as noted [employer] -- no issues since admission electrolytes stable Echo results noted TSH okay (4) Asthma: Code(s): J45.909 - Unspecified asthma, uncomplicated Status: Chronic Assessment and Plan: clinically better at this time s/p IV steroids and nebulizer treatments no wheezing now (5) Hypertension: Code(s): I10 - Essential (primary) hypertension Status: Chronic Assessment and Plan: blood pressure mostly 110-120. Rare spike to 160. (6) Diabetes: Code(s): E11.9 - Type 2 diabetes mellitus without complications Status: Chronic Assessment and Plan: on Accu-Cheks and sliding-scale insulin per hospitalist Subjective Date/time seen: 01/02/22 10:26 Interval history: Beto is feeling better. Breathing is doing well. No chest pain. Sitting up in a chair. She wants to get up and walk in the halls. Exam Narrative: WDWN in NAD skin no rash head ncat lungs clear without wheezes even on forced expiration cor reg no rub or gallop abd BS+ nontender and soft ext no edema. Objective Data Vital Signs Vital Signs: Vital Signs - 24 hr 01/01/22 14:00 01/01/22 16:16 01/01/22 20:00 Temperature 36.4 C L 36.2 C L Pulse Rate 56 L 72 60 Respiratory Rate 14 16 18 Blood Pressure 117/59 L 105/63 129/62 Pulse Oximetry 97 97 95 01/01/22 20:05 01/01/22 22:00 01/02/22 02:05 Temperature 36.2 C L 36.2 C L Pulse Rate 64 64 66 Respiratory Rate 18 18 Blood Pressure 125/71 125/71 Pulse Oximetry 95 95 97 01/02/22 06:00 01/02/22 07:57 01/02/22 08:00 Temperature 35.8 C L Pulse Rate 60 60 Respiratory Rate 18 Blood Pressure 160/57 H Pulse Oximetry 96 96 01/02/22 08:16 Temperature Pulse Rate Respiratory Rate Blood Pressure Pulse Oximetry 98 Intake/Output Intake/Output: Intake & Output 12/30/21 12/31/21 01/01/22 01/02/22 23:59 23:59 23:59 23:59 Intake Total 2100 1610 2160 690 Output Total 900 1001 2050 1804 Balance 1200 609 110 -1114 Meds/Results Medications: Active Medications Generic Name Dose Route Start Last Admin Trade Name Freq PRN Reason Stop Dose Admin Acetaminophen 650 mg 12/29/21 23:42 01/01/22 22:44 Acetaminophen 325 Mg Tablet PO 650 mg Q6H PRN Administration Mild Pain (1-3) or Fever Albuterol 5 mg 12/30/21 12:01 Albuterol Sulfate Neb 2.5 Mg/0.5 Ml Inh INHALATION Q6HRT PRN Shortness breath Aspirin 81 mg 12/30/21 08:00 01/02/22 07:58 Aspirin 81 Mg Chewable Tablet PO 81 mg DAILY@0800 KAELA Administration Atorvastatin Calcium 10 mg 12/30/21 21:00 01/01/22 20:19 Atorvastatin 10 Mg Tablet PO 10 mg HS KAELA Administration Carvedilol 50 mg 12/30/21 08:00 01/02/22 07:57 Carvedilol 25 Mg Tablet PO 50 mg Q12H KAELA Administration Dextrose 12.5 gm 12/29/21 23:40 Dextrose 50% 25 Gm/50 Ml Syringe IV PUSH PRN PRN Hypoglycemia Protocol Enoxaparin Sodium 30 mg 12/30/21 09:00 01/02/22 07:5
[2022-01-02] MEDS: ACETAMINOPHEN 325 MG TABLET 650 MG PO ×3 (10:51→22:56)
[2022-01-02] MEDS: SODIUM CHLORIDE 0.9% IV 500 ML 100 ML IV CONT (10:52)
--- NOTE | 2022-01-02 11:26 | P.PNIM_ITS ---
Progress Note: A&P Assessment and Plan (1) Acute kidney injury superimposed on chronic kidney disease: Code(s): N17.9 - Acute kidney failure, unspecified; N18.9 - Chronic kidney disease, unspecified Status: Acute Assessment and Plan: Likely due to over-diuresis and this may very well be the etiology of her recent fatigue. * Creatinine with marginal increase today to 3.0. * Baseline creatinine appears to be 2.3-2.7 * Fine titration needed so as to not overload cardiac function with hx of CHF. * ECHO was performed and results with normal LVSF with EF of 65-70%. * Continue to monitor renal function closely. Renally dose medications and avoid nephrotoxins * Renal US yesterday was unremarkable. ' * Nephrology is covering, appreciate their continued recommendations for treatment. Pt. to receive another trial of IVF today and they will be re- evaluating. * Accurate I&O to be performed. (2) Palpitations: Code(s): R00.2 - Palpitations Status: Resolved Assessment and Plan: Intermittent but increasing in frequency associated with mild chest discomfort. * No issues with palpitations this admission. Patient is asymptomatic * TSH is normal at 0.875 * ECHO results as note. * Monitor electrolytes. Magnesium levels are within normal limits * Consider event monitor on discharge - RESOLVED (3) Asthma: Code(s): J45.909 - Unspecified asthma, uncomplicated Status: Chronic Assessment and Plan: She is at her baseline oxygen requirement (3L per nasal cannula) and is in no distress. * Received nebulizer and 1 time dose of IV Solu-Medrol in the ED and her symptoms resolved * She is asymptomatic at this time. No wheezing on exam. Not in acute exacerbation * No indication to continue steroids * Albuterol and Atrovent nebs available as needed * Continue Advair * Not problematic currently. (4) Obstructive sleep apnea on CPAP: Code(s): G47.33 - Obstructive sleep apnea (adult) (pediatric); Z99.89 - Dependence on other enabling machines and devices Status: Acute Assessment and Plan: - Patient is compliant with CPAP, 3 L bleed in. - No signs of respiratory distress. (5) Type 2 diabetes mellitus: Code(s): E11.9 - Type 2 diabetes mellitus without complications Status: Acute Assessment and Plan: A1c is 7.8 * Random blood sugar on presentation was 57, though the patient was asymptomatic * She received D50 in the ED and subsequently glucose has been quite elevated in the 390s, also probably worsened due to IV steroids * Received a dose of Lantus 40 units this morning * Continue home regimen with exception of increasing Lantus from 45 units q.h.s. to 48 units QHS, NovoLog 18 units t.i.d. with meals * Continue Accu-Checks, sliding scale insulin, and hypoglycemic protocol * Diabetic diet * Change SSI to high dose correction in conjunction with Lantus, and meal coverage. * Glucose remains higher this AM even with the changes implemented yesterday, but are overall in a better ranged than what they were. Her fasting glucose this AM was 201. Will change her Lantus to 48 units HS from 45 units. * Improved overall, will leave insulin dosage where it is and continue to monitor. (6) Low back pain: Qualifiers: Back pain laterality: bilateral Chronicity: unspecified Sciatica presence: unspecified whether sciatica present Qualified Code(s): M54.50 - Low back pain, unspecified Code(s): M54.50 - Low back pain, unspecified Status: Acute Assessment and Plan
--- NOTE | 2022-01-02 11:26 | PM.IMPN ---
Progress Note: A&P Assessment and Plan (1) Acute kidney injury superimposed on chronic kidney disease: Code(s): N17.9 - Acute kidney failure, unspecified; N18.9 - Chronic kidney disease, unspecified Status: Acute Assessment and Plan: Likely due to over-diuresis and this may very well be the etiology of her recent fatigue. Creatinine with marginal increase today to 3.0. Baseline creatinine appears to be 2.3-2.7 Fine titration needed so as to not overload cardiac function with hx of CHF. ECHO was performed and results with normal LVSF with EF of 65-70%. Continue to monitor renal function closely. Renally dose medications and avoid nephrotoxins Renal US yesterday was unremarkable. ' Nephrology is covering, appreciate their continued recommendations for treatment. Pt. to receive another trial of IVF today and they will be re-evaluating. Accurate I&O to be performed. (2) Palpitations: Code(s): R00.2 - Palpitations Status: Resolved Assessment and Plan: Intermittent but increasing in frequency associated with mild chest discomfort. No issues with palpitations this admission. Patient is asymptomatic TSH is normal at 0.875 ECHO results as note. Monitor electrolytes. Magnesium levels are within normal limits Consider event monitor on discharge - RESOLVED (3) Asthma: Code(s): J45.909 - Unspecified asthma, uncomplicated Status: Chronic Assessment and Plan: She is at her baseline oxygen requirement (3L per nasal cannula) and is in no distress. Received nebulizer and 1 time dose of IV Solu-Medrol in the ED and her symptoms resolved She is asymptomatic at this time. No wheezing on exam. Not in acute exacerbation No indication to continue steroids Albuterol and Atrovent nebs available as needed Continue Advair Not problematic currently. (4) Obstructive sleep apnea on CPAP: Code(s): G47.33 - Obstructive sleep apnea (adult) (pediatric); Z99.89 - Dependence on other enabling machines and devices Status: Acute Assessment and Plan: - Patient is compliant with CPAP, 3 L bleed in. - No signs of respiratory distress. (5) Type 2 diabetes mellitus: Code(s): E11.9 - Type 2 diabetes mellitus without complications Status: Acute Assessment and Plan: A1c is 7.8 Random blood sugar on presentation was 57, though the patient was asymptomatic She received D50 in the ED and subsequently glucose has been quite elevated in the 390s, also probably worsened due to IV steroids Received a dose of Lantus 40 units this morning Continue home regimen with exception of increasing Lantus from 45 units q.h.s. to 48 units QHS, NovoLog 18 units t.i.d. with meals Continue Accu-Checks, sliding scale insulin, and hypoglycemic protocol Diabetic diet Change SSI to high dose correction in conjunction with Lantus, and meal coverage. Glucose remains higher this AM even with the changes implemented yesterday, but are overall in a better ranged than what they were. Her fasting glucose this AM was 201. Will change her Lantus to 48 units HS from 45 units. Improved overall, will leave insulin dosage where it is and continue to monitor. (6) Low back pain: Qualifiers: Back pain laterality: bilateral Chronicity: unspecified Sciatica presence: unspecified whether sciatica present Qualified Code(s): M54.50 - Low back pain, unspecified Code(s): M54.50 - Low back pain, unspecified Status: Acute Assessment and Plan: A chronic and ongoing problem for the patient. No acute changes Supportive care. Analgesics available as needed PT has evaluated and have no recommendations for continued therapy at this time. Encourage ambulation (7) Hyperkalemia: Code(s): E87.5 - Hyperkalemia Status: Acute Assessment and Plan: Potassium is now normal and we are monitoring. P.o. potassium supplement is on hold Cu
[2022-01-02 11:28] LABS: Glucose Point of Care 126 mg/dl (65-105)
[2022-01-02] MEDS: traMADol HCL (*CRX) 50 MG TABLET PO (14:28)
[2022-01-02 16:44] LABS: Glucose Point of Care 121 mg/dl (65-105)
[2022-01-02] MEDS: guanFACINE HCL 1 MG TABLET 2 MG PO (21:17)
[2022-01-02] MEDS: ATORVASTATIN 10 MG TABLET PO (21:17)
[2022-01-02] MEDS: INSULIN GLARGINE (*BKC) 100 UNITS/ML 48 UNITS SUB-Q (21:24)
[2022-01-02 21:56] LABS: Glucose Point of Care 143 mg/dl (65-105)
[2022-01-03] VITALS (14 sets, daily range): BP systolic 112–148; BP diastolic 52–70; PULSE 60–82; RESP 16–18; TEMP 35.6–35.9; O2SAT 66–100
--- NOTE | 2022-01-03 03:02 | PC.NURSE ---
Daylight Savings Time For Daylight Savings Time Ending in the Fall - Clocks are moved back. For Daylight Savings Time Beginning in the Spring - Clocks are moved ahead. For [facility], the time of change occurs at 0200 hrs. Time is taken from the server security administrator. This entry on the patient's chart recognizes the change in time reflected during documentation. Example: 2 entries for vital signs may be charted for 0200 hrs.
[2022-01-03] MEDS: LEVOTHYROXINE SODIUM 50 MCG TABLET PO (06:05)
[2022-01-03 06:32] LABS: Alanine Aminotransferase 11 U/L (4-35); Albumin Level 3.6 g/dL (3.5-5.1); Alkaline Phosphatase 93 U/L (38-126); Anion Gap 4 mmol/L (8-16); Aspartate Amino Transferase 23 U/L (14-36); Bilirubin,Total 0.6 mg/dL (0.2-1.3); Blood Urea Nitrogen 83 mg/dL (7-17); Calcium 9.6 mg/dL (8.4-10.2); Carbon Dioxide 29 mmol/L (22-30); Chloride 101 mmol/L (98-107); Estimated CRCL calculation 27 ml/min; Estimated Glomerular Filt Rate 17; Glucose 156 mg/dL (65-110); Phosphorus 4.4 mg/dL (2.5-4.5); Potassium 4.4 mmol/L (3.4-5.0); Sodium 134 mmol/L (137-145)
[2022-01-03] MEDS: ENOXAPARIN 30 MG/0.3 ML SYRINGE SUB-Q (08:15)
[2022-01-03] MEDS: ESCITALOPRAM OXALATE 10 MG TABLET PO (08:15)
[2022-01-03] MEDS: FLUTICASONE PROPIONATE 0.05% NA SPR 16 GM BTL (*BKC) 2 SPRAY NASAL (08:15)
[2022-01-03] MEDS: LORATADINE 10 MG TABLET PO (08:16)
[2022-01-03] MEDS: OMEGA 3 POLYUNSAT FATTY ACIDS 1 GM CAP PO (08:16)
[2022-01-03] MEDS: ASPIRIN 81 MG CHEWABLE TABLET PO (08:16)
[2022-01-03] MEDS: SENNOSIDES 8.6 MG TABLET PO (08:16)
[2022-01-03] MEDS: PANTOPRAZOLE 40 MG TABLET PO ×2 (08:16→18:14)
[2022-01-03] MEDS: carvediloL 25 MG TABLET 50 MG PO ×2 (08:16→20:58)
[2022-01-03] MEDS: MAGNESIUM OXIDE 400 MG TABLET PO (08:16)
[2022-01-03] MEDS: INSULIN ASPART (*BKC) 100 UNITS/ML 18 UNITS SUB-Q ×3 (08:18→18:14)
[2022-01-03] MEDS: TOLNAFTATE 1% POWDER 45 GM BTL 1 APPLIC TOPICAL ×2 (08:22→21:01)
[2022-01-03 08:29] LABS: Glucose Point of Care 166 mg/dl (65-105)
[2022-01-03] MEDS: FLUTICASONE/SALMETEROL 115-21 MCG INHALER 1 PUFF 2 PUFF INHALATION ×2 (08:39→19:55)
--- NOTE | 2022-01-03 10:55 | P.PNNP_ITS ---
Progress Note: A&P Assessment and Plan (1) BRADY (acute kidney injury): Code(s): N17.9 - Acute kidney failure, unspecified Status: Acute Assessment and Plan: * acute versus progression of disease versus random fluctuations in kidney function? * renal ultrasound is okay. * Urine electrolytes not done * CK is normal * diuretics on hold * Creatinine is slightly better today. is fell from 3-2.7. * She is eating better. Will leave off IV fluids for now. (2) Chronic kidney disease, stage IV (severe): Code(s): N18.4 - Chronic kidney disease, stage 4 (severe) Status: Chronic Assessment and Plan: * baseline creatinine seems to run around 2.3 - 2.8mg/dl in the last year * thought to be due to DM. HTN, and prior history of NSAID use * follow with Dr. Robbin Hester as an outpatient (3) Palpitations: Code(s): R00.2 - Palpitations Status: Resolved Assessment and Plan: * as noted [employer] -- no issues since admission * electrolytes stable * Echo results noted * TSH okay (4) Asthma: Code(s): J45.909 - Unspecified asthma, uncomplicated Status: Chronic Assessment and Plan: * no wheezing now * Getting supportive care. (5) Hypertension: Code(s): I10 - Essential (primary) hypertension Status: Chronic Assessment and Plan: * blood pressure mostly 110-140. * No more spikes to 160. (6) Diabetes: Code(s): E11.9 - Type 2 diabetes mellitus without complications Status: Chronic Assessment and Plan: * on Accu-Cheks and sliding-scale insulin per hospitalist Subjective Date/time seen: 01/03/22 10:55 Interval history: Beto is feeling better. Breathing is doing well. Sitting in a chair. She ate a good breakfast today and also ate well for lunch and dinner yesterday.. Exam Narrative: WDWN in NAD skin no rash Or subcu nodules head ncat lungs clear without wheezes even on forced expiration cor reg no rub or gallop abd BS+ nontender and soft ext no edema. Objective Data Vital Signs Vital Signs: Vital Signs - 24 hr 01/02/22 14:00 01/02/22 20:00 01/02/22 20:05 Temperature 36.6 C 36.0 C L 35.5 C L Pulse Rate 62 64 69 Respiratory Rate 16 16 16 Blood Pressure 111/51 L 138/57 L 132/58 L Pulse Oximetry 97 96 96 01/02/22 20:09 01/02/22 20:10 01/02/22 20:14 Temperature 36.0 C L Pulse Rate 60 74 64 Respiratory Rate 16 Blood Pressure 130/66 Pulse Oximetry 96 96 97 01/02/22 21:17 01/02/22 21:45 01/03/22 01:55 Temperature 36.0 C L Pulse Rate 63 64 63 Respiratory Rate 16 Blood Pressure 138/57 L Pulse Oximetry 96 96 01/03/22 05:44 01/03/22 08:15 01/03/22 08:16 Temperature 35.8 C L Pulse Rate 62 61 Respiratory Rate 16 Blood Pressure 139/59 L Pulse Oximetry 95 100 01/03/22 08:38 Temperature Pulse Rate Respiratory Rate Blood Pressure Pulse Oximetry 95 Intake/Output Intake/Output: Intake & Output 12/31/21 01/01/22 01/02/22 01/04/22 23:59 23:59 23:59 00:59 Intake
--- NOTE | 2022-01-03 10:55 | PM.PNNEP ---
Progress Note: A&P Assessment and Plan (1) BRADY (acute kidney injury): Code(s): N17.9 - Acute kidney failure, unspecified Status: Acute Assessment and Plan: acute versus progression of disease versus random fluctuations in kidney function? renal ultrasound is okay. Urine electrolytes not done CK is normal diuretics on hold Creatinine is slightly better today. is fell from 3-2.7. She is eating better. Will leave off IV fluids for now. (2) Chronic kidney disease, stage IV (severe): Code(s): N18.4 - Chronic kidney disease, stage 4 (severe) Status: Chronic Assessment and Plan: baseline creatinine seems to run around 2.3 - 2.8mg/dl in the last year thought to be due to DM. HTN, and prior history of NSAID use follow with Dr. 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 (5) Hypertension: Code(s): I10 - Essential (primary) hypertension Status: Chronic Assessment and Plan: blood pressure mostly 110-140. No more spikes to 160. (6) Diabetes: Code(s): E11.9 - Type 2 diabetes mellitus without complications Status: Chronic Assessment and Plan: on Accu-Cheks and sliding-scale insulin per hospitalist Subjective Date/time seen: 01/03/22 10:55 Interval history: Beto is feeling better. Breathing is doing well. Sitting in a chair. She ate a good breakfast today and also ate well for lunch and dinner yesterday.. Exam Narrative: WDWN in NAD skin no rash Or subcu nodules head ncat lungs clear without wheezes even on forced expiration cor reg no rub or gallop abd BS+ nontender and soft ext no edema. Objective Data Vital Signs Vital Signs: Vital Signs - 24 hr 01/02/22 14:00 01/02/22 20:00 01/02/22 20:05 Temperature 36.6 C 36.0 C L 35.5 C L Pulse Rate 62 64 69 Respiratory Rate 16 16 16 Blood Pressure 111/51 L 138/57 L 132/58 L Pulse Oximetry 97 96 96 01/02/22 20:09 01/02/22 20:10 01/02/22 20:14 Temperature 36.0 C L Pulse Rate 60 74 64 Respiratory Rate 16 Blood Pressure 130/66 Pulse Oximetry 96 96 97 01/02/22 21:17 01/02/22 21:45 01/03/22 01:55 Temperature 36.0 C L Pulse Rate 63 64 63 Respiratory Rate 16 Blood Pressure 138/57 L Pulse Oximetry 96 96 01/03/22 05:44 01/03/22 08:15 01/03/22 08:16 Temperature 35.8 C L Pulse Rate 62 61 Respiratory Rate 16 Blood Pressure 139/59 L Pulse Oximetry 95 100 01/03/22 08:38 Temperature Pulse Rate Respiratory Rate Blood Pressure Pulse Oximetry 95 Intake/Output Intake/Output: Intake & Output 12/31/21 01/01/22 01/02/22 01/04/22 23:59 23:59 23:59 00:59 Intake Total 1610 3160 2790 450 Output Total 1001 2050 3354 2202 Balance [phone] -[phone] Meds/Results Medications: Active Medications Generic Name Dose Route Start Last Admin Trade Name Freq PRN Reason Stop Dose Admin Acetaminophen 650 mg 12/29/21 23:42 01/02/22 22:56 Acetaminophen 325 Mg Tablet PO 650 mg Q6H PRN Administration Mild Pain (1-3) or Fever Albuterol 5 mg 12/30/21 12:01 Albuterol Sulfate Neb 2.5 Mg/0.5 Ml Inh INHALATION Q6HRT PRN Shortness breath Aspirin 81 mg 12/30/21 08:00 01/03/22 08:16 Aspirin 81 Mg Chewable Tablet PO 81 mg DAILY@0800 KAELA Administration Atorvastatin Calcium 10 mg 12/30/21 21:00 01/02/22 21:17 Atorvastatin 10 Mg Tablet PO 10 mg HS KAELA Administration Carvedilol 50 mg 12/30/21 08:00 01/03/22 08:16 Carvedilol 25 Mg Tablet PO 50 mg Q12H KAELA Administration Dextrose 12.5 gm
[2022-01-03 11:31] LABS: Glucose Point of Care 151 mg/dl (65-105)
[2022-01-03] MEDS: ACETAMINOPHEN 325 MG TABLET 650 MG PO ×2 (13:29→19:47)
--- NOTE | 2022-01-03 13:45 | P.PNIM_ITS ---
Progress Note: A&P Assessment and Plan (1) Acute kidney injury superimposed on chronic kidney disease: Code(s): N17.9 - Acute kidney failure, unspecified; N18.9 - Chronic kidney disease, unspecified Status: Acute Assessment and Plan: Likely due to over-diuresis and this may very well be the etiology of her recent fatigue. * Creatinine with further decline today to 2.7. * Baseline creatinine appears to be 2.3-2.7 * Fine titration needed so as to not overload cardiac function with hx of CHF. * ECHO was performed and results with normal LVSF with EF of 65-70%. * Continue to monitor renal function closely. Renally dose medications and avoid nephrotoxins * Renal US was unremarkable. ' * Nephrology is covering, appreciate their continued recommendations for treatment. * Accurate I&O to be performed. * Stable from medical standpoint to discharge with Nephrology agreeable. (2) Palpitations: Code(s): R00.2 - Palpitations Status: Resolved Assessment and Plan: Intermittent but increasing in frequency associated with mild chest discomfort. * No issues with palpitations this admission. Patient is asymptomatic * TSH is normal at 0.875 * ECHO results as note. * Monitor electrolytes. Magnesium levels are within normal limits * Consider event monitor on discharge - RESOLVED (3) Asthma: Qualifiers: Asthma complication type: with acute exacerbation Code(s): J45.909 - Unspecified asthma, uncomplicated Status: Chronic Assessment and Plan: She is at her baseline oxygen requirement (3L per nasal cannula) and is in no distress. * Received nebulizer and 1 time dose of IV Solu-Medrol in the ED and her symptoms resolved * She is asymptomatic at this time. No wheezing on exam. Not in acute exacerbation * No indication to continue steroids * Albuterol and Atrovent nebs available as needed * Continue Advair * Not problematic currently. (4) Obstructive sleep apnea on CPAP: Code(s): G47.33 - Obstructive sleep apnea (adult) (pediatric); Z99.89 - Dependence on other enabling machines and devices Status: Acute Assessment and Plan: - Patient is compliant with CPAP, 3 L bleed in. - No signs of respiratory distress. (5) Type 2 diabetes mellitus: Qualifiers: Diabetes mellitus ferry terminal supervisor insulin use: with ferry terminal supervisor use Diabetes mellitus complication status: with kidney complications Diabetes mellitus complication detail: with chronic kidney disease Chronic kidney disease stage: stage 3 (moderate) Chronic kidney disease stage 3 subtype: stage 3b (GFR 30-44) Qualified Code(s): E11.22 - Type 2 diabetes mellitus with diabetic chronic kidney disease; N18.32 - Chronic kidney disease, stage 3b; Z79.4 - ferry terminal supervisor (current) use of insulin Code(s): E11.9 - Type 2 diabetes mellitus without complications Status: Acute Assessment and Plan: A1c is 7.8 * Random blood sugar on presentation was 57, though the patient was asymptomatic * She received D50 in the ED and subsequently glucose has been quite elevated in the 390s, also probably worsened due to IV steroids * Received a dose of Lantus 40 units this morning * Continue home regimen with exception of increasing Lantus from 45 units q.h.s. to 48 units QHS, NovoLog 18 units t.i.d. with meals * Continue Accu-Checks, sliding scale insulin, and hypoglycemic protocol * Diabetic diet * Change SSI to high dose correction in conjunction with Lantus, and meal coverage. * Glucose remains higher this AM even with the changes implemented yesterday, but
--- NOTE | 2022-01-03 13:45 | PM.IMPN ---
Progress Note: A&P Assessment and Plan (1) Acute kidney injury superimposed on chronic kidney disease: Code(s): N17.9 - Acute kidney failure, unspecified; N18.9 - Chronic kidney disease, unspecified Status: Acute Assessment and Plan: Likely due to over-diuresis and this may very well be the etiology of her recent fatigue. Creatinine with further decline today to 2.7. Baseline creatinine appears to be 2.3-2.7 Fine titration needed so as to not overload cardiac function with hx of CHF. ECHO was performed and results with normal LVSF with EF of 65-70%. Continue to monitor renal function closely. Renally dose medications and avoid nephrotoxins Renal US was unremarkable. ' Nephrology is covering, appreciate their continued recommendations for treatment. Accurate I&O to be performed. Stable from medical standpoint to discharge with Nephrology agreeable. (2) Palpitations: Code(s): R00.2 - Palpitations Status: Resolved Assessment and Plan: Intermittent but increasing in frequency associated with mild chest discomfort. No issues with palpitations this admission. Patient is asymptomatic TSH is normal at 0.875 ECHO results as note. Monitor electrolytes. Magnesium levels are within normal limits Consider event monitor on discharge - RESOLVED (3) Asthma: Qualifiers: Asthma complication type: with acute exacerbation Code(s): J45.909 - Unspecified asthma, uncomplicated Status: Chronic Assessment and Plan: She is at her baseline oxygen requirement (3L per nasal cannula) and is in no distress. Received nebulizer and 1 time dose of IV Solu-Medrol in the ED and her symptoms resolved She is asymptomatic at this time. No wheezing on exam. Not in acute exacerbation No indication to continue steroids Albuterol and Atrovent nebs available as needed Continue Advair Not problematic currently. (4) Obstructive sleep apnea on CPAP: Code(s): G47.33 - Obstructive sleep apnea (adult) (pediatric); Z99.89 - Dependence on other enabling machines and devices Status: Acute Assessment and Plan: - Patient is compliant with CPAP, 3 L bleed in. - No signs of respiratory distress. (5) Type 2 diabetes mellitus: Qualifiers: Diabetes mellitus methods analyst insulin use: with methods analyst use Diabetes mellitus complication status: with kidney complications Diabetes mellitus complication detail: with chronic kidney disease Chronic kidney disease stage: stage 3 (moderate) Chronic kidney disease stage 3 subtype: stage 3b (GFR 30-44) Qualified Code(s): E11.22 - Type 2 diabetes mellitus with diabetic chronic kidney disease; N18.32 - Chronic kidney disease, stage 3b; Z79.4 - penitentiary (current) use of insulin Code(s): E11.9 - Type 2 diabetes mellitus without complications Status: Acute Assessment and Plan: A1c is 7.8 Random blood sugar on presentation was 57, though the patient was asymptomatic She received D50 in the ED and subsequently glucose has been quite elevated in the 390s, also probably worsened due to IV steroids Received a dose of Lantus 40 units this morning Continue home regimen with exception of increasing Lantus from 45 units q.h.s. to 48 units QHS, NovoLog 18 units t.i.d. with meals Continue Accu-Checks, sliding scale insulin, and hypoglycemic protocol Diabetic diet Change SSI to high dose correction in conjunction with Lantus, and meal coverage. Glucose remains higher this AM even with the changes implemented yesterday, but are overall in a better ranged than what they were. Her fasting glucose this AM was 201. Will change her Lantus to 48 units HS from 45 units. Improved overall, will leave insulin dosage where it is and continue to monitor. (6) Low back pain: Qualifiers: Back pain laterality: bilateral Chronicity: unspecified Sciatica presence: unspecified whether sciatica present Qualified
[2022-01-03 17:00] LABS: Glucose Point of Care 105 mg/dl (65-105)
[2022-01-03] MEDS: guanFACINE HCL 1 MG TABLET 2 MG PO (20:58)
[2022-01-03] MEDS: ATORVASTATIN 10 MG TABLET PO (20:58)
[2022-01-03 21:04] LABS: Glucose Point of Care 88 mg/dl (65-105)
[2022-01-04 04:10] VITALS: PULSE 62; O2SAT 95
[2022-01-04] MEDS: LEVOTHYROXINE SODIUM 50 MCG TABLET PO (05:08)
[2022-01-04 06:00] VITALS: BP 141/54; PULSE 58; RESP 18; TEMP 35.9; O2SAT 98
[2022-01-04 06:22] LABS: Albumin Level 3.6 g/dL (3.5-5.1); Anion Gap 4 mmol/L (8-16); Blood Urea Nitrogen 72 mg/dL (7-17); Calcium 9.9 mg/dL (8.4-10.2); Carbon Dioxide 31 mmol/L (22-30); Chloride 100 mmol/L (98-107); Estimated CRCL calculation 28 ml/min; Estimated Glomerular Filt Rate 18; Glucose 181 mg/dL (65-110); Potassium 4.7 mmol/L (3.4-5.0); Sodium 135 mmol/L (137-145)
[2022-01-04] MEDS: ACETAMINOPHEN 325 MG TABLET 650 MG PO (07:41)
[2022-01-04 07:48] LABS: Glucose Point of Care 181 mg/dl (65-105)
[2022-01-04] MEDS: FLUTICASONE PROPIONATE 0.05% NA SPR 16 GM BTL (*BKC) 2 SPRAY NASAL (08:21)
[2022-01-04] MEDS: ENOXAPARIN 30 MG/0.3 ML SYRINGE SUB-Q (08:21)
[2022-01-04 08:22] VITALS: PULSE 58
[2022-01-04] MEDS: ASPIRIN 81 MG CHEWABLE TABLET PO (08:22)
[2022-01-04] MEDS: carvediloL 25 MG TABLET 50 MG PO (08:22)
[2022-01-04] MEDS: MAGNESIUM OXIDE 400 MG TABLET PO (08:22)
[2022-01-04] MEDS: ESCITALOPRAM OXALATE 10 MG TABLET PO (08:22)
[2022-01-04] MEDS: LORATADINE 10 MG TABLET PO (08:22)
[2022-01-04] MEDS: OMEGA 3 POLYUNSAT FATTY ACIDS 1 GM CAP PO (08:22)
[2022-01-04] MEDS: PANTOPRAZOLE 40 MG TABLET PO (08:22)
[2022-01-04] MEDS: INSULIN ASPART (*BKC) 100 UNITS/ML 18 UNITS SUB-Q ×2 (08:23→12:51)
[2022-01-04 08:30] VITALS: O2SAT 94
[2022-01-04] MEDS: FLUTICASONE/SALMETEROL 115-21 MCG INHALER 1 PUFF 2 PUFF INHALATION (08:31)
[2022-01-04] MEDS: TOLNAFTATE 1% POWDER 45 GM BTL 1 APPLIC TOPICAL (08:31)
--- NOTE | 2022-01-04 09:21 | P.PNNP_ITS ---
Progress Note: A&P Assessment and Plan (1) BRADY (acute kidney injury): Code(s): N17.9 - Acute kidney failure, unspecified Status: Acute Assessment and Plan: * acute versus progression of disease versus random fluctuations in kidney function? * renal ultrasound is okay. * Urine electrolytes not done * CK is normal * diuretics on hold * Creatinine is slightly better today. is fell from 3-2.7-2.6 * this is her baseline. * Okay for discharge from the kidney standpoint. (2) Chronic kidney disease, stage IV (severe): Code(s): N18.4 - Chronic kidney disease, stage 4 (severe) Status: Chronic Assessment and Plan: * baseline creatinine seems to run around 2.3 - 2.8mg/dl in the last year * thought to be due to DM. HTN, and prior history of NSAID use * follow with Dr. 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 (5) Hypertension: Code(s): I10 - Essential (primary) hypertension Status: Chronic Assessment and Plan: * blood pressure mostly 110-140. * Will continue same meds. (6) Diabetes: Code(s): E11.9 - Type 2 diabetes mellitus without complications Status: Chronic Assessment and Plan: * on Accu-Cheks and sliding-scale insulin per hospitalist Subjective Date/time seen: 01/04/22 09:21 Interval history: Beto is feeling better. Breathing is doing well. Lying flat in bed. Hungry for breakfast Exam Narrative: WDWN in NAD skin no rash Or subcu nodules head ncat lungs clear without wheezes even on forced expiration cor reg no rub abd BS+ nontender and soft ext no edema or cyanosis. Objective Data Vital Signs Vital Signs: Vital Signs - 24 hr 01/03/22 13:03 01/03/22 13:04 01/03/22 13:05 Temperature 35.6 C L 35.7 C L Pulse Rate 64 65 62 Respiratory Rate 18 18 Blood Pressure 127/66 112/52 L 115/63 Pulse Oximetry 92 95 66 L 01/03/22 14:00 01/03/22 19:55 01/03/22 20:00 Temperature 35.7 C L 35.7 C L Pulse Rate 68 65 63 Respiratory Rate 18 16 Blood Pressure 137/70 146/62 H Pulse Oximetry 97 93 95 01/03/22 20:05 01/03/22 20:58 01/03/22 21:39 Temperature 35.9 C L 35.7 C L Pulse Rate 60 82 63 Respiratory Rate 16 16 Blood Pressure 148/64 H 146/62 H Pulse Oximetry 94 93 01/04/22 04:10 01/04/22 06:00 01/04/22 08:22 Temperature 35.9 C L Pulse Rate 62 58 L 58 L Respiratory Rate 18 Blood Pressure 141/54 H Pulse Oximetry 95 98 01/04/22 08:30 Temperature Pulse Rate Respiratory Rate Blood Pressure Pulse Oximetry 94 Intake/Output Intake/Output: Intake & Output 01/01/2201/02
--- NOTE | 2022-01-04 09:21 | PM.PNNEP ---
Progress Note: A&P Assessment and Plan (1) BRADY (acute kidney injury): Code(s): N17.9 - Acute kidney failure, unspecified Status: Acute Assessment and Plan: acute versus progression of disease versus random fluctuations in kidney function? renal ultrasound is okay. Urine electrolytes not done CK is normal diuretics on hold Creatinine is slightly better today. is fell from 3-2.7-2.6 this is her baseline. Okay for discharge from the kidney standpoint. (2) Chronic kidney disease, stage IV (severe): Code(s): N18.4 - Chronic kidney disease, stage 4 (severe) Status: Chronic Assessment and Plan: baseline creatinine seems to run around 2.3 - 2.8mg/dl in the last year thought to be due to DM. HTN, and prior history of NSAID use follow with Dr. 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 (5) Hypertension: Code(s): I10 - Essential (primary) hypertension Status: Chronic Assessment and Plan: blood pressure mostly 110-140. Will continue same meds. (6) Diabetes: Code(s): E11.9 - Type 2 diabetes mellitus without complications Status: Chronic Assessment and Plan: on Accu-Cheks and sliding-scale insulin per hospitalist Subjective Date/time seen: 01/04/22 09:21 Interval history: Beto is feeling better. Breathing is doing well. Lying flat in bed. Hungry for breakfast Exam Narrative: WDWN in NAD skin no rash Or subcu nodules head ncat lungs clear without wheezes even on forced expiration cor reg no rub abd BS+ nontender and soft ext no edema or cyanosis. Objective Data Vital Signs Vital Signs: Vital Signs - 24 hr 01/03/22 13:03 01/03/22 13:04 01/03/22 13:05 Temperature 35.6 C L 35.7 C L Pulse Rate 64 65 62 Respiratory Rate 18 18 Blood Pressure 127/66 112/52 L 115/63 Pulse Oximetry 92 95 66 L 01/03/22 14:00 01/03/22 19:55 01/03/22 20:00 Temperature 35.7 C L 35.7 C L Pulse Rate 68 65 63 Respiratory Rate 18 16 Blood Pressure 137/70 146/62 H Pulse Oximetry 97 93 95 01/03/22 20:05 01/03/22 20:58 01/03/22 21:39 Temperature 35.9 C L 35.7 C L Pulse Rate 60 82 63 Respiratory Rate 16 16 Blood Pressure 148/64 H 146/62 H Pulse Oximetry 94 93 01/04/22 04:10 01/04/22 06:00 01/04/22 08:22 Temperature 35.9 C L Pulse Rate 62 58 L 58 L Respiratory Rate 18 Blood Pressure 141/54 H Pulse Oximetry 95 98 01/04/22 08:30 Temperature Pulse Rate Respiratory Rate Blood Pressure Pulse Oximetry 94 Intake/Output Intake/Output: Intake & Output 01/01/22 01/02/22 01/03/22 01/04/22 22:59 22:59 23:59 23:59 Intake Total 350 Output Total 1700 Balance -1350 Meds/Results Medications: Active Medications Generic Name Dose Route Start Last Admin Trade Name Freq PRN Reason Stop Dose Admin Acetaminophen 650 mg 12/29/21 23:42 01/04/22 07:41 Acetaminophen 325 Mg Tablet PO 650 mg Q6H PRN Administration Mild Pain (1-3) or Fever Albuterol 5 mg 12/30/21 12:01 Albuterol Sulfate Neb 2.5 Mg/0.5 Ml Inh INHALATION Q6HRT PRN Shortness breath Aspirin 81 mg 12/30/21 08:00 01/04/22 08:22 Aspirin 81 Mg Chewable Tablet PO 81 mg DAILY@0800 KAELA Administration Atorvastatin Calcium 10 mg 12/30/21 21:00 01/03/22 20:58 Atorvastatin 10 Mg Tablet PO 10 mg HS KAELA Administration Carvedilol 50 mg 12/30/21 08:00 01/04/22 08:22 Carvedilol 25 Mg Tablet PO 50 mg Q12H KAELA Administr
--- NOTE | 2022-01-04 11:10 | P.DS_ITS ---
DS: Admitting Diagnosis Discharge Date 01/04/2022 Admitting Diagnosis Acute on chronic kidney failure, BRADY Palpitations Asthma ABDIAZIZ Type 2 DM Low back pain DS: Discharge Diagnosis Discharge Diagnosis (1) Acute kidney injury superimposed on chronic kidney disease: Code(s): N17.9 - Acute kidney failure, unspecified; N18.9 - Chronic kidney disease, unspecified Status: Acute Assessment and Plan: Likely due to over-diuresis and this may very well be the etiology of her recent fatigue. * Creatinine with further decline today to 2.6. * Baseline creatinine appears to be 2.3-2.7 * Fine titration needed so as to not overload cardiac function with hx of CHF. * ECHO was performed and results with normal LVSF with EF of 65-70%. * Continue to monitor renal function closely. Renally dose medications and avoid nephrotoxins * Renal US was unremarkable. ' * Nephrology is covering, appreciate their continued recommendations for treatment. * Accurate I&O to be performed. * Stable from medical standpoint to discharge with Nephrology agreeable. (2) Palpitations: Code(s): R00.2 - Palpitations Status: Resolved Assessment and Plan: Intermittent but increasing in frequency associated with mild chest discomfort. * No issues with palpitations this admission. Patient is asymptomatic * TSH is normal at 0.875 * ECHO results as note. * Monitor electrolytes. Magnesium levels are within normal limits * Consider event monitor on discharge - RESOLVED (3) Asthma: Qualifiers: Asthma complication type: with acute exacerbation Code(s): J45.909 - Unspecified asthma, uncomplicated Status: Chronic Assessment and Plan: She is at her baseline oxygen requirement (3L per nasal cannula) and is in no distress. * Received nebulizer and 1 time dose of IV Solu-Medrol in the ED and her symptoms resolved * She is asymptomatic at this time. No wheezing on exam. Not in acute exacerbation * No indication to continue steroids * Albuterol and Atrovent nebs available as needed * Continue Advair * Not problematic currently. (4) Obstructive sleep apnea on CPAP: Code(s): G47.33 - Obstructive sleep apnea (adult) (pediatric); Z99.89 - Dependence on other enabling machines and devices Status: Acute Assessment and Plan: - Patient is compliant with CPAP, 3 L bleed in. - No signs of respiratory distress. (5) Type 2 diabetes mellitus: Qualifiers: Diabetes mellitus termite inspector insulin use: with halfway use Diabetes mellitus complication status: with kidney complications Diabetes mellitus complication detail: with chronic kidney disease Chronic kidney disease stage: stage 3 (moderate) Chronic kidney disease stage 3 subtype: stage 3b (GFR 30-44) Qualified Code(s): E11.22 - Type 2 diabetes mellitus with diabetic chronic kidney disease; N18.32 - Chronic kidney disease, stage 3b; Z79.4 - rat exterminator (current) use of insulin Code(s): E11.9 - Type 2 diabetes mellitus without complications Status: Acute Assessment and Plan: A1c is 7.8 * Random blood sugar on presentation was 57, though the patient was asymptomatic * She received D50 in the ED and subsequently glucose has been quite elevated in the 390s, also probably worsened due to IV steroids * Received a dose of Lantus 40 units this morning * Continue home regimen with exception of increasing Lantus from 45 units q.h.s. to 48 units QHS, NovoLog 18 units t.i.d. with meals * Continue Accu-Checks, sliding scale insulin, and hypoglycemic pr
--- NOTE | 2022-01-04 11:10 | PM.DS ---
DS: Admitting Diagnosis Discharge Date 01/04/2022 Admitting Diagnosis Acute on chronic kidney failure, BRADY Palpitations Asthma ABDIAZIZ Type 2 DM Low back pain DS: Discharge Diagnosis Discharge Diagnosis (1) Acute kidney injury superimposed on chronic kidney disease: Code(s): N17.9 - Acute kidney failure, unspecified; N18.9 - Chronic kidney disease, unspecified Status: Acute Assessment and Plan: Likely due to over-diuresis and this may very well be the etiology of her recent fatigue. Creatinine with further decline today to 2.6. Baseline creatinine appears to be 2.3-2.7 Fine titration needed so as to not overload cardiac function with hx of CHF. ECHO was performed and results with normal LVSF with EF of 65-70%. Continue to monitor renal function closely. Renally dose medications and avoid nephrotoxins Renal US was unremarkable. ' Nephrology is covering, appreciate their continued recommendations for treatment. Accurate I&O to be performed. Stable from medical standpoint to discharge with Nephrology agreeable. (2) Palpitations: Code(s): R00.2 - Palpitations Status: Resolved Assessment and Plan: Intermittent but increasing in frequency associated with mild chest discomfort. No issues with palpitations this admission. Patient is asymptomatic TSH is normal at 0.875 ECHO results as note. Monitor electrolytes. Magnesium levels are within normal limits Consider event monitor on discharge - RESOLVED (3) Asthma: Qualifiers: Asthma complication type: with acute exacerbation Code(s): J45.909 - Unspecified asthma, uncomplicated Status: Chronic Assessment and Plan: She is at her baseline oxygen requirement (3L per nasal cannula) and is in no distress. Received nebulizer and 1 time dose of IV Solu-Medrol in the ED and her symptoms resolved She is asymptomatic at this time. No wheezing on exam. Not in acute exacerbation No indication to continue steroids Albuterol and Atrovent nebs available as needed Continue Advair Not problematic currently. (4) Obstructive sleep apnea on CPAP: Code(s): G47.33 - Obstructive sleep apnea (adult) (pediatric); Z99.89 - Dependence on other enabling machines and devices Status: Acute Assessment and Plan: - Patient is compliant with CPAP, 3 L bleed in. - No signs of respiratory distress. 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 use Diabetes mellitus complication status: with kidney complications Diabetes mellitus complication detail: with chronic kidney disease Chronic kidney disease stage: stage 3 (moderate) Chronic kidney disease stage 3 subtype: stage 3b (GFR 30-44) Qualified Code(s): E11.22 - Type 2 diabetes mellitus with diabetic chronic kidney disease; N18.32 - Chronic kidney disease, stage 3b; Z79.4 - snf (current) use of insulin Code(s): E11.9 - Type 2 diabetes mellitus without complications Status: Acute Assessment and Plan: A1c is 7.8 Random blood sugar on presentation was 57, though the patient was asymptomatic She received D50 in the ED and subsequently glucose has been quite elevated in the 390s, also probably worsened due to IV steroids Received a dose of Lantus 40 units this morning Continue home regimen with exception of increasing Lantus from 45 units q.h.s. to 48 units QHS, NovoLog 18 units t.i.d. with meals Continue Accu-Checks, sliding scale insulin, and hypoglycemic protocol Diabetic diet Change SSI to high dose correction in conjunction with Lantus, and meal coverage. Glucose remains higher this AM even with the changes implemented yesterday, but are overall in a better ranged than what they were. Her fasting glucose this AM was 201. Will change her Lantus to 48 units HS from 45 units. Improved overall, will leave insulin dosage where it is and continue to monitor.
[2022-01-04 11:48] LABS: EDCOVIDSCREEN Negative (Negative)
[2022-01-04 11:58] LABS: Glucose Point of Care 128 mg/dl (65-105)
[2022-01-05 14:28] LABS: Chloride Rand Ur 35 mmol/L (32-290); Chloride/Creatinine Rand Ur 56 (38-318); Creatinine Random Urine 63 mg/dL (20-275)
== END 2022-01-04 13:28 | DRG 683 ==
LOC: ANHED 17:14 → ANH3MEDSUR 18:03
PROVIDERS: Emergency Medicine; Internal Medicine Nephrology; Physician Assistant; Admitting Provider Hospitalist; Emergency Provider Emergency Medicine; PCP Family Medicine; Visit Provider Nurse Practitioner Adult Health
DX: N17.9 Acute kidney failure, unspecified (principal); J96.11 Chronic respiratory failure with hypoxia; E87.1 Hypo-osmolality and hyponatremia; Z68.43 Body mass index [BMI] 50.0-59.9, adult; I13.0 Hypertensive heart and chronic kidney disease with heart failure and stage 1 through stage 4 chronic kidney disease, or unspecified chronic kidney disease; Z20.822 Contact with and (suspected) exposure to COVID-19; I50.9 Heart failure, unspecified; I12.9 Hypertensive chronic kidney disease with stage 1 through stage 4 chronic kidney disease, or unspecified chronic kidney disease; N18.4 Chronic kidney disease, stage 4 (severe); J44.9 Chronic obstructive pulmonary disease, unspecified; K59.00 Constipation, unspecified; R00.2 Palpitations; E11.22 Type 2 diabetes mellitus with diabetic chronic kidney disease; E11.42 Type 2 diabetes mellitus with diabetic polyneuropathy; E66.9 Obesity, unspecified; E87.5 Hyperkalemia; E21.3 Hyperparathyroidism, unspecified; E03.9 Hypothyroidism, unspecified; G47.33 Obstructive sleep apnea (adult) (pediatric); G89.29 Other chronic pain; M54.50 Low back pain, unspecified; Z99.81 Dependence on supplemental oxygen; Z28.21 Immunization not carried out because of patient refusal; Z86.711 Personal history of pulmonary embolism; Z99.89 Dependence on other enabling machines and devices; Z79.82 Long term (current) use of aspirin; Z86.718 Personal history of other venous thrombosis and embolism; Z86.79 Personal history of other diseases of the circulatory system; Z90.49 Acquired absence of other specified parts of digestive tract; Z90.710 Acquired absence of both cervix and uterus; Z79.4 Long term (current) use of insulin; Z79.899 Other long term (current) drug therapy
CPT/HCPCS: 36415; 36600; 71046; 71250; 74176; 76775; 80048; 80053; 80069; 81050; 82375; 82436; 82550; 82570; 82805; 82948; 83036; 83050; 83690; 83735; 84100; 84132; 84156; 84300; 84443; 84484; 85025; 85027; 85610; 85730; 85999; 87426; 93005; 93306; 94640; 94660; 96372; 97161; 97165; 99285; A9270; C9803; G0378; J1170; J1650; J1815; J2930; J7030; J7040

== ENCOUNTER 2022-02-02 10:22 | Outpatient (CLI) | payer MEDICARE, BC, SELFPAY ==
[2022-02-02 11:08] LABS: Hemoglobin 11.9 g/dL (12.0-15.0); Mean Corpuscular HGB Conc 30.5 g/dl (32-36); Mean Corpuscular Hemoglobin 30.3 pg (26-34); Mean Corpuscular Volume 99.2 fl (80-100); Mean Platelet Volume 10.4 fl (7.4-10.4); Platelet Count Result 211 k/mm3 (150-375); Red Blood Count 3.93 M/mm3 (4.2-5.4); Red Cell Distribution Width 18.5 % (11.5-14.5); White Blood Count 10.6 K/mm3 (4.5-10.0)
[2022-02-02 11:19] LABS: Alanine Aminotransferase 12 U/L (4-35); Alkaline Phosphatase 88 U/L (38-126); Anion Gap 12 mmol/L (8-16); Aspartate Amino Transferase 24 U/L (14-36); Blood Urea Nitrogen 85 mg/dL (7-17); Calcium 9.6 mg/dL (8.4-10.2); Carbon Dioxide 27 mmol/L (22-30); Chloride 97 mmol/L (98-107); Estimated Glomerular Filt Rate 17; Glucose 155 mg/dL (65-110); Potassium 3.5 mmol/L (3.4-5.0); Sodium 136 mmol/L (137-145)
[2022-02-02 11:41] LABS: Appearance Urine Clear (Clear); Bilirubin Urine Negative (Negative); Blood Urine Trace-lysed (Negative); Color Urine Yellow (Yellow); Glucose Urine UA Negative (Negative); Ketones Urine Negative (Negative); Leukocyte Esterase Ur Negative LEU/UL (Negative); Nitrate Urine Negative (Negative); Protein Urine Negative (Negative); Urobilinogen Urine 0.2 mg/dL (<2.0)
[2022-02-02 11:56] LABS: Mucus Urine Rare /lpf; RBC Urine 0-2 /hpf (0-2); Squamous Epithelial Cell Urine Moderate /hpf (Few); WBC Urine 0-3 /hpf
[2022-02-02 11:57] LABS: Add Urine Microscopic? YES
== END 2022-02-02 10:23 | disposition home or self-care (01) ==
PROVIDERS: PCP Family Medicine; Visit Provider Family Medicine
DX: D64.9 Anemia, unspecified (principal); N39.0 Urinary tract infection, site not specified; N18.4 Chronic kidney disease, stage 4 (severe)
CPT/HCPCS: 36415; 80053; 81001; 85027

== ENCOUNTER 2022-03-19 12:09 | Outpatient (CLI) | payer MEDICARE, BC, SELFPAY ==
[2022-03-19 13:34] LABS: Appearance Urine Clear (Clear); Color Urine Yellow (Yellow); pH Urine 5.5 (5.0-9.0)
[2022-03-19 13:35] LABS: Glucose Urine UA Negative (Negative); Protein Urine Negative (Negative)
[2022-03-19 13:36] LABS: Bilirubin Urine Negative (Negative); Blood Urine Negative (Negative); Ketones Urine Negative (Negative); Nitrate Urine Positive (Negative)
[2022-03-19 13:37] LABS: Add Urine Microscopic? YES; Leukocyte Esterase Ur Trace LEU/UL (NEGATIVE); Urobilinogen Urine 0.2 mg/dL (<2.0)
[2022-03-19 13:50] LABS: Bacteria Urine Trace /hpf; Mucus Urine Rare /lpf; RBC Urine 0-2 /hpf (0-2); Squamous Epithelial Cell Urine Occasional /hpf (Few); WBC Urine 16-20 /hpf (0-3)
== END 2022-03-19 12:10 | disposition home or self-care (01) ==
PROVIDERS: PCP Family Medicine; Visit Provider Family Medicine
DX: N39.0 Urinary tract infection, site not specified (principal)
CPT/HCPCS: 81001

== ENCOUNTER 2022-04-27 09:12 | Outpatient (CLI) | payer MEDICARE, BC, SELFPAY ==
[2022-04-27 09:50] LABS: Basophils Absolute Auto 0.1 K/mm3 (0.0-0.1); Basophils Percent Auto 0.5 % (0.2-1.2); Eosinophils Absolute Auto 0.5 K/mm3 (0-0.3); Eosinophils Percent Auto 5.2 % (0-4.4); Hemoglobin 11.7 g/dL (12.0-15.0); Immature Granulocyte Absolute 0.05 K/mm3 (0.00-0.031); Immature Granulocyte Percent A 0.5 % (0-0.5); Lymphocytes Absolute Auto 2.31 K/mm3 (0.9-3.2); Lymphocytes Percent Auto 25.2 % (18.3-44.2); Mean Corpuscular HGB Conc 30.8 g/dl (32-36); Mean Corpuscular Hemoglobin 30.6 pg (26-34); Mean Corpuscular Volume 99.5 fl (80-100); Mean Platelet Volume 10.2 fl (7.4-10.4); Monocytes Absolute Auto 0.8 K/mm3 (0.1-0.6); Monocytes Percent Auto 8.3 % (2.6-8.5); Neutrophils Absolute Auto 5.5 K/mm3 (1.3-6.7); Neutrophils Percent Auto 60.3 % (45.5-73.1); Platelet Count Result 210 k/mm3 (150-375); Red Blood Count 3.82 M/mm3 (4.2-5.4); Red Cell Distribution Width 16.5 % (11.5-14.5); White Blood Count 9.2 K/mm3 (4.5-10.0)
[2022-04-27 09:58] LABS: Anion Gap 6 mmol/L (8-16); Blood Urea Nitrogen 55 mg/dL (7-17); Calcium 9.9 mg/dL (8.4-10.2); Carbon Dioxide 32 mmol/L (22-30); Chloride 100 mmol/L (98-107); Estimated Glomerular Filt Rate 19; Glucose 155 mg/dL (65-110); Sodium 138 mmol/L (137-145); Uric Acid 4.9 mg/dL (2.5-7.5)
[2022-04-27 10:09] LABS: Parathyroid Intact 287.6 pg/mL (7.5-53.5)
[2022-04-27 10:12] LABS: Creatinine Urine 91.4 mg/dL
[2022-04-27 10:17] LABS: MALB Creatinine Ratio 126.3 mg/g (0-30); Microalbumin Urine Random 115.4 mg/L (0-16.7)
[2022-04-27 10:25] LABS: Vitamin D 25 Hydroxy 23.8 ng/mL
== END 2022-04-27 09:13 | disposition home or self-care (01) ==
LOC: ANHLAB 09:19
PROVIDERS: PCP Family Medicine
DX: N18.4 Chronic kidney disease, stage 4 (severe) (principal)
CPT/HCPCS: 36415; 80048; 82043; 82306; 83970; 84550; 85025

== ENCOUNTER 2022-05-25 16:18 | Observation (INO) | payer MEDICARE, BC, SELFPAY ==
[2022-05-25] VITALS (8 sets, daily range): BP systolic 128–177; BP diastolic 59–84; PULSE 72–108; RESP 18–22; TEMP 36.4–36.7; O2SAT 92–96; BMI 55.3
--- NOTE | ~2022-05-25 | MR_ITS ---
EXAMINATION: MR brain/brain stem wo/w con DATE: 05/26/2022 15:45 INDICATION: Persistent left-sided headache TECHNIQUE: Magnetic resonance imaging (MRI) of the brain and brainstem was performed without and with 20 mL Multihance intravenous contrast. Sequences included sagittal and axial T1-weighted SE, axial d iffusion-weighted FS SE, axial T2*-weighted GRE, axial 3D SWAN, axial T2-weighted FLAIR, and axial T2 -weighted FSE. Postcontrast axial and coronal T1-weighted SE was obtained. Apparent diffusion coeffic ient (ADC) maps were created. COMPARISON: Head CT dated 05/25/2022 FINDINGS: There are no areas of restricted diffusion to suggest acute infarction. No intracranial hemorrhage or abnormal intracranial mass lesion. There are scattered areas of nonspecific increased T2-weighted si gnal intensity in the cerebral white matter, predominantly involving the deep and periventricular whi te matter. There are no intraparenchymal signal abnormalities seen on the other pulse sequences. The ventricles are symmetric and normal in size. There are no abnormal extra-axial fluid collections. Juan Carlos w voids are seen in the cerebral arteries on the T2-weighted sequences consistent with their expected patency. Changes of bilateral intraocular lens replacement. Mild mucosal thickening the bilateral e thmoid sinuses. Bilateral mastoid effusions, left greater than right. There are no areas of abnormal enhancement on the post contrast images. IMPRESSION: 1. No acute intracranial process. 2. Mild to moderate scattered white matter T2 hyperintensity which is within normal limits for age an d likely sequela of chronic small vessel ischemic disease. Reviewed, dictated and finalized at location A. IMPRESSION: 1. No acute intracranial process. 2. Mild to moderate scattered white matter T2 hyperintensity which is within no rmal limits for age and likely sequela of chronic small vessel ischemic disease .
--- NOTE | ~2022-05-25 | CT_ITS ---
EXAMINATION: CT brain wo con DATE: 05/25/2022 17:26 INDICATION: Headache . TECHNIQUE: Computed tomography (CT) of the head was performed without intravenous contrast. The mA wa s adjusted according to patient size. Iterative reconstruction technique was employed. The dose-lengt h product was 605.33 mGy-cm. COMPARISON: None FINDINGS: No acute intracranial hemorrhage or extra-axial fluid collection. No hydrocephalus, mass, or herniation. No acute ischemic infarct. Unremarkable dural venous sinus attenuation. No acute osseous abnormality. The aerated spaces are clear. Small left mastoid effusion. Moderate atrophy and chronic white matter change. Atherosclerotic intracranial calcification. Bilater al lens replacements. IMPRESSION: No acute intracranial process. Small left mastoid effusion. Reviewed, dictated and finalized at location K.
--- NOTE | ~2022-05-25 | XR_ITS ---
EXAMINATION: XR chest 2V Exam Date/Time: 05/25/2022 16:39 CDT HISTORY: CHEST HEAVINESS, N/V, COUGH, SOB, HEADACHE X 2 DAYS Comparison: 12/29/2021. RESULT: Lines, tubes, and devices: None. Lungs and pleura: Diffuse and peripheral reticular and reticulonodular opacities. Streaky left mid a nd bilateral lower lung opacities likely represent scar/atelectasis. Cardiomediastinal silhouette: Stable. Other: No acute osseous or upper abdominal finding. IMPRESSION: Pulmonary opacities may reflect mild interstitial edema or respiratory bronchiolitis. Reviewed, dictated and finalized at location K. IMPRESSION: Pulmonary opacities may reflect mild interstitial edema or respiratory bronchio litis.
--- NOTE | ~2022-05-25 | US_ITS ---
EXAMINATION: US venous doppler [facility] DATE: 05/26/2022 11:38 INDICATION: Lower limb edema. TECHNIQUE: Grayscale ultrasound images without and with compression and Doppler ultrasound images of the bilateral lower extremity veins were obtained. COMPARISON: None. FINDINGS: The visualized portions of right common femoral vein, profunda (deep) femoral vein, femoral vein, pop liteal vein, peroneal veins, posterior tibial veins, and greater saphenous vein outflow are patent. The visualized portions of left common femoral vein, profunda femoral vein, femoral vein, popliteal v ein, peroneal veins, posterior tibial veins, and greater saphenous vein outflow are patent. IMPRESSION: 1. No deep venous thrombosis. Reviewed, dictated and finalized at location A.
--- NOTE | ~2022-05-25 | US_ITS ---
EXAMINATION: US thyroid DATE: 05/26/2022 11:39 INDICATION: Thyroid nodule. TECHNIQUE: Multiple ultrasound images of the thyroid were obtained. COMPARISON: Ultrasound 10/27/2021, 04/03/2018 FINDINGS: The right thyroid lobe measures 6.3 x 2.0 x 2.0 cm. The left thyroid lobe measures 5.4 x 5.6 x 1.6 c m. In the right thyroid lobe, there is a 1.5 cm mixed cystic and solid, isoechoic, wider than tall n odule with lobulated margin without echogenic foci (TI-RADS TR4), stable from 04/03/18 when biopsy was benign. In the left thyroid lobe, there is a 1.3 cm cystic nodule (TR1). There are multiple subcenti meter nodules in the thyroid. IMPRESSION: 1. Thyroid nodules, likely not clinically significant. No follow-up is needed. Reviewed, dictated and finalized at location A.
--- NOTE | 2022-05-25 16:31 | ECG_ITS ---
Measurements Intervals [place] Rate: 67 P: 50 IA: 196 QRS: -7 QRSD: 95 T: 80 QT: 449 QTc: 475 Interpretive Statements SINUS RHYTHM NONSPECIFIC T-WAVE ABNORMALITY BASELINE ARTIFACT POOR R-WAVE PROGRESSION COMPARED TO ECG 12/29/2021 11:25:16 NO SIGNIFICANT CHANGES Electronically Signed On 05-26-2022 12:18:39 CDT by Clay Hogan M.D.
[2022-05-25 16:42] LABS: Basophils Absolute Auto 0.1 K/mm3 (0.0-0.1); Basophils Percent Auto 0.6 % (0.2-1.2); Eosinophils Absolute Auto 0.4 K/mm3 (0-0.3); Eosinophils Percent Auto 4.1 % (0-4.4); Hematocrit 38.7 % (37.0-47.0); Hemoglobin 11.7 g/dL (12.0-15.0); Immature Granulocyte Absolute 0.03 K/mm3 (0.00-0.031); Immature Granulocyte Percent A 0.3 % (0-0.5); Lymphocytes Percent Auto 24.4 % (18.3-44.2); Mean Corpuscular HGB Conc 30.2 g/dl (32-36); Mean Corpuscular Hemoglobin 30.7 pg (26-34); Mean Corpuscular Volume 101.6 fl (80-100); Mean Platelet Volume 10.4 fl (7.4-10.4); Monocytes Absolute Auto 0.8 K/mm3 (0.1-0.6); Monocytes Percent Auto 8.4 % (2.6-8.5); Neutrophils Absolute Auto 6.1 K/mm3 (1.3-6.7); Neutrophils Percent Auto 62.2 % (45.5-73.1); Platelet Count Result 216 k/mm3 (150-375); Red Blood Count 3.81 M/mm3 (4.2-5.4); Red Cell Distribution Width 16.4 % (11.5-14.5); White Blood Count 9.8 K/mm3 (4.5-10.0)
--- NOTE | 2022-05-25 16:50 | ED.CHESTPAIN ---
HPI - Chest Pain General Chief Complaint: Chest Pain Stated Complaint: n/v/rubio x 2 days Time Seen by Provider: 05/25/22 16:40 Related Data Home Medications Medication Instructions Recorded Confirmed magnesium oxide 400 mg PO DAILY 11/15/19 03/09/22 allopurinol 300 mg tablet 300 mg PO DAILY 03/17/21 03/09/22 fluticasone propionate 50 2 spray intranasal DAILY 03/17/21 03/09/22 mcg/actuation nasal spray,suspension furosemide 20 mg tablet (Lasix) 60 mg PO BID 03/17/21 03/09/22 atorvastatin 10 mg tablet 10 mg PO HS 05/27/21 03/09/22 nitroglycerin 0.4 mg sublingual 0.4 mg sublingual Q5M PRN Chest 07/21/21 03/09/22 tablet Pain aspirin 81 mg capsule 81 mg PO DAILY 08/31/21 03/09/22 potassium chloride 20 mEq 20 meq PO DAILY 08/31/21 03/09/22 tablet,extended release Miconazorb AF 1 spry topical BID 12/29/21 03/09/22 fexofenadine 180 mg tablet 180 mg PO DAILY 12/29/21 03/09/22 fluticasone furoate 100 1 inh inhalation DAILY 12/29/21 03/09/22 mcg-vilanterol 25 mcg/dose inhalation powder (Breo Ellipta) omega-3 fatty acids 1,000 mg PO DAILY 12/29/21 03/09/22 carvedilol 12.5 mg tablet 12.5 mg PO Q12H 01/17/22 03/09/22 [place] Nasal Mist 2 spray topical BID Sinus Symptoms 01/21/22 03/09/22 Allergies Allergy/AdvReac Type Severity Reaction Status Date / Time No Known Allergies Allergy Verified 03/09/22 13:04 [facility] Past Medical History Medical History Aortic aneurysm Asthma Chronic kidney disease, stage 4 (severe) Chronic respiratory failure with hypoxia, on home oxygen therapy Deep venous thrombosis Diabetic neuropathy Hyperparathyroidism Hypertension Hypothyroidism Obstructive sleep apnea on CPAP Pulmonary embolism Type 2 diabetes mellitus Surgical History Surgical History History of appendectomy History of cardiac catheterization History of cholecystectomy History of hysterectomy Family History Family History Mother Diabetes mellitus Family history of bipolar disorder Hypertension Father Family history of cardiovascular disease Cerebrovascular accident Family history of emphysema Other Family history of anemia Family history of congestive heart failure Family history of obesity Social History Social History Social History: Surrogate decision maker: Beverly Flores, daughter. Code status: Full code. Smoking status: Never smoker Second hand tobacco smoke exposure: No Alcohol intake: never Substance use: never Substance use type: does not use Additional living arrangements comments: Assisted living at [facility]. Course Vital Signs Vital signs: Vital Signs Temperature 36.7 C 05/25/22 16:23 Pulse Rate 72 05/25/22 16:23 Respiratory Rate 22 H 05/25/22 16:23 Blood Pressure 177/84 H 05/25/22 16:23 Pulse Oximetry 95 05/25/22 16:23 Oxygen Delivery Nasal Cannula 05/25/22 16:23 Oxygen Flow Rate 3 05/25/22 16:23 Temperature 36.7 C 05/25/22 16:23 Pulse Rate 72 05/25/22 16:23 Respiratory Rate 22 H 05/25/22 16:23 Blood Pressure 177/84 H 05/25/22 16:23 Pulse Oximetry 94 05/25/22 16:30 Oxygen Delivery Nasal Cannula 05/25/22 16:30 Oxygen Flow Rate 3 05/25/22 16:30 MDM - Chest Pain Lab Data Result diagrams: 05/25/22 16:35 05/25/22 16:35 Labs: Lab Results 05/25/22 05/25/22 05/25/22 Range/Units 16:35 16:35 16:35 WBC 9.8 (4.5-10.0) K/mm3 RBC 3.81 L (4.2-5.4) M/mm3 Hgb 11.7 L (12.0-15.0) g/dL Hct 38.7 (37.0-47.0) % MCV 101.6 H (80-100) fl MCH 30.7 (26-34) pg MCHC 30.2 L (32-36) g/dl RDW 16.4 H (11.5-14.5) % Plt Count 216 (150-375) k/mm3 MPV 10.4 (7.4-10.4) fl Immature Gran % (Auto) 0.3 (0-0.5) % Neut % (Aut
[2022-05-25 16:52] LABS: Prothrombin Time 12.5 Seconds (11.1-14.7)
[2022-05-25 16:53] LABS: Alanine Aminotransferase 12 U/L (6-35); Albumin Level 4.1 g/dL (3.5-5.1); Alkaline Phosphatase 99 U/L (38-126); Anion Gap 9 mmol/L (8-16); Aspartate Amino Transferase 20 U/L (14-36); Bilirubin,Total 0.6 mg/dL (0.2-1.3); Blood Urea Nitrogen 67 mg/dL (7-17); Calcium 10.6 mg/dL (8.4-10.2); Carbon Dioxide 28 mmol/L (22-30); Chloride 97 mmol/L (98-107); Estimated Glomerular Filt Rate 17; Glucose 147 mg/dL (65-110); Lipase 89 U/L (23-300); Partial Thromboplastin Time 24.6 SECONDS (22.3-36.8); Potassium 4.1 mmol/L (3.4-5.0); Sodium 134 mmol/L (137-145)
[2022-05-25 17:05] LABS: Troponin I < 0.012 ng/mL (0.000-0.034)
--- NOTE | 2022-05-25 17:18 | ED.GENADULT ---
HPI - General Adult General Chief complaint: Chest Pain Stated complaint: n/v/rubio x 2 days Time Seen by Provider: 05/25/22 16:40 Source: patient, family and EMS Mode of arrival: EMS History of Present Illness HPI narrative: 71 years old white female came from assisted living by ambulance complaining of left sided headache associated with nausea and vomiting started yesterday, history of migraine headache, last similar headache was 1 month ago got better on Tylenol. She denies any fever, chills, sore throat, runny nose, body aches, shortness of breath, back pain or abdominal pain. Reports some chest pain for a while, history of dry cough for the last few weeks. She denies COVID exposure. She is fully vaccinated and boosted for COVID-19. History of sleep apnea on 2 L of oxygen only at night during sleep. History of diabetes, hypertension, hyperlipidemia, parathyroid disorder, CKD, patient is full code. Currently her main complaint is headache Related Data Home Medications Medication Instructions Recorded Confirmed magnesium oxide 400 mg PO DAILY 11/15/19 03/09/22 allopurinol 300 mg tablet 300 mg PO DAILY 03/17/21 03/09/22 fluticasone propionate 50 2 spray intranasal DAILY 03/17/21 03/09/22 mcg/actuation nasal spray,suspension furosemide 20 mg tablet (Lasix) 60 mg PO BID 03/17/21 03/09/22 atorvastatin 10 mg tablet 10 mg PO HS 05/27/21 03/09/22 nitroglycerin 0.4 mg sublingual 0.4 mg sublingual Q5M PRN Chest 07/21/21 03/09/22 tablet Pain aspirin 81 mg capsule 81 mg PO DAILY 08/31/21 03/09/22 potassium chloride 20 mEq 20 meq PO DAILY 08/31/21 03/09/22 tablet,extended release Miconazorb AF 1 spry topical BID 12/29/21 03/09/22 fexofenadine 180 mg tablet 180 mg PO DAILY 12/29/21 03/09/22 fluticasone furoate 100 1 inh inhalation DAILY 12/29/21 03/09/22 mcg-vilanterol 25 mcg/dose inhalation powder (Breo Ellipta) omega-3 fatty acids 1,000 mg PO DAILY 12/29/21 03/09/22 carvedilol 12.5 mg tablet 12.5 mg PO Q12H 01/17/22 03/09/22 [place] Nasal Mist 2 spray topical BID Sinus Symptoms 01/21/22 03/09/22 Allergies Allergy/AdvReac Type Severity Reaction Status Date / Time No Known Allergies Allergy Verified 03/09/22 13:04 Review of Systems Review of Systems: All systems reviewed & are unremarkable except as noted in HPI and below PMFSH Past Medical History Medical History Aortic aneurysm Asthma Chronic kidney disease, stage 4 (severe) Chronic respiratory failure with hypoxia, on home oxygen therapy Deep venous thrombosis Diabetic neuropathy Hyperparathyroidism Hypertension Hypothyroidism Obstructive sleep apnea on CPAP Pulmonary embolism Type 2 diabetes mellitus Surgical History Surgical History History of appendectomy History of cardiac catheterization History of cholecystectomy History of hysterectomy Family History Family History Mother Diabetes mellitus Family history of bipolar disorder Hypertension Father Family history of cardiovascular disease Cerebrovascular accident Family history of emphysema Other Family history of anemia Family history of congestive heart failure Family history of obesity Social History Social History Social History: Surrogate decision maker: Beverly Flores, daughter. Code status: Full code. Smoking status: Never smoker Second hand tobacco smoke exposure: No Alcohol intake: never Substance use: never Substance use type: does not use Additional living arrangements comments: Assisted living at [facility]. Exam Narrative: General appearance: Well-developed, well-nourished, morbidly obese, Skin: Normal color Head: Normocephalic, nontraumatic Eyes: Clear conjunctiva ENT: Oropharynx normal, ears normal, nose normal Neck: Supple, nonte
[2022-05-25] MEDS: METOCLOPRAMIDE HCL INJ 10 MG/2 ML VIAL IV PUSH (17:40)
[2022-05-25] MEDS: diphenhydrAMINE HCl INJ 50 MG/ML VIAL IV PUSH (17:41)
[2022-05-25] MEDS: ASPIRIN 81 MG CHEWABLE TABLET 324 MG PO (17:41)
[2022-05-25] MEDS: HYDROmorphone HCL INJ (*CRX) 1 MG/ML SYR 0.5 MG IV PUSH (17:41)
[2022-05-25 17:42] LABS: Erythrocyte Sedimentation Rate 20 mm/hr (0-20)
[2022-05-25] MEDS: SODIUM CHLORIDE 0.9% IV 1,000 ML 999 ML IV CONT (17:42)
[2022-05-25 18:38] LABS: SARS-CoV-2 RNA PCR Negative
[2022-05-25 18:46] LABS: Appearance Urine Slightly Cloudy (Clear); Bilirubin Urine Negative (Negative); Color Urine Yellow (Yellow); Glucose Urine UA Negative (Negative); Ketones Urine Negative (Negative); Leukocyte Esterase Ur Negative LEU/UL (Negative); Nitrate Urine Negative (Negative); Protein Urine 1+ mg/dL (Negative); Specific Grav Ur 1.015 (1.001-1.035); Urobilinogen Urine 0.2 mg/dL (<2.0); pH Urine 6.5 (5.0-9.0)
[2022-05-25 18:51] LABS: Add Urine Microscopic? YES; Blood Urine Trace (Negative)
[2022-05-25 18:55] LABS: Bacteria Urine Trace /hpf; Mucus Urine Rare /lpf; Squamous Epithelial Cell Urine Many /hpf (Few); WBC Urine 0-3 /hpf
[2022-05-25] MEDS: SODIUM CHLORIDE 0.9% IV 1,000 ML 100 ML IV CONT (19:30)
[2022-05-25 19:58] LABS: Troponin I < 0.012 ng/mL (0.000-0.034)
--- NOTE | 2022-05-25 22:29 | PC.NURSE ---
This patient, Beto Bryan, was admitted to IMU Room 206-01 at 2030 on 05/25/2022. Patient/family oriented to hospital policies and general routines including ID bracelet, bed and alarms, visiting hours, pain management, procedures, bathroom and other care routines, personal items, smoking policy, room service/diet, and visiting hours. Information on how to activate the Rapid Response Team has been discussed. Patient/Family are encouraged to report perceived risks to care and to ask questions if they do not understand what they are told or what they should do.
--- NOTE | 2022-05-25 22:37 | PM.IMHP ---
H&P: HPI History of Present Illness Date/Time: 05/25/22 22:37 Chief Complaint: Headache Narrative: This is a 70 would year old female patient who came from [facility] via ambulance with complaint of left-sided headache associated with nausea vomiting that started since yesterday. She has a history of having migraine headache and had a similar headache approximately 1 month ago and was better with Tylenol. She denied any fever chills but has had a dry cough over the last few weeks. She denies any COVID exposure. She is fully vaccinated. She does have a history of hypertension, hyperlipidemia peer thyroid disorder chronic kidney disease stage 3 to 4. She was given Reglan and aspirin in the emergency room. The patient complained of nausea. She complains of feeling weak. She was given IV fluids and Benadryl in the emergency room. Patient has some light sensitivity to her ice and some mild nausea even after the Zofran. She was also given Dilaudid for her headache. She still continues to complain of mild headache to the left side. The patient did not complain of having any chest pain when I saw her she complained of left-sided facial pain and left-sided headache. The patient stated that she has had a cardiac catheterization in the past. However the patient felt weak and short of breath. Head CT was read as no acute intracranial process. Small left mastoid effusion. Chest x-ray was read as pulmonary opacities may reflect mild interstitial edema are respiratory bronchiolitis. Creatinine is 2.7 with a GFR 17 glucose is 147. Patient's renal labs are at baseline. Troponins are negative x2. I was unable to find the EKG from today. Patient is being admitted to observation status on the date of service of 05/25/2022. Review of Systems Review of Systems: All systems reviewed & are unremarkable except as noted in HPI and below Constitutional: Constitutional: Reports as per HPI and Reports no additional constitutional complaints Eyes: Eyes: Reports as per HPI and Reports no additional eye complaints ENT: Reports system reviewed and no additional complaints, except as documented and Reports Normal hearing present Cardiovascular: Cardiovascular: Reports no additional cardiovascular complaints Respiratory: Respiratory: Reports no additional respiratory complaints and Reports no additional respiratory complaints Gastrointestinal: Gastrointestinal: Reports as per HPI and Reports no additional gastrointestinal complaints Musculoskeletal: Musculoskeletal: Reports no additional musculoskeletal complaints Integumentary/Breasts: Skin/Breast: Reports system reviewed and no additional complaints, except as docu and Reports as per HPI Neurologic: Reports system reviewed and no additional complaints, except as documented, Reports as per HPI and Reports Normal hearing present Psychiatric: Psychiatric: Reports no additional psychiatric complaints and Reports as per HPI Endocrine: Endocrine: Reports no additional endocrine complaints Hematologic/Lymphatic: Hematologic/Lymphatic: Reports no additional hematologic/lymphatic complaints Allergic/Immunologic: Allergic/Immunologic: Reports no additional allergic/immunologic complaints [facility] Past Medical History Medical History (Updated 05/25/22 @ 23:26 by Lily Erickson NP) Aortic aneurysm Asthma CHF (congestive heart failure), NYHA class I Chronic kidney disease, stage 4 (severe) Chronic respiratory failure with hypoxia, on home oxygen therapy Deep venous thrombosis Diabetic neuropathy Hyperparathyroidism Hypertension Hypothyroidism Obstructive sleep apnea on CPAP Pulmonary embolism Type 2 diabetes mellitus Surgical History Surgical History History of appendectomy History of cardiac catheterization History of cholecystectomy History of hysterectomy Family History Family History (Reviewed 05/25/22 @ 22:46 by Chaka
[2022-05-25] MEDS: FLUTICASONE PROPIONATE 0.05% NA SPR 16 GM BTL (*BKC) 1 SPRAY NASAL (22:58)
[2022-05-25 23:00] LABS: Glucose Point of Care 263 mg/dl (65-105)
[2022-05-25 23:29] LABS: Troponin I < 0.012 ng/mL (0.000-0.034)
[2022-05-26] VITALS (16 sets, daily range): BP systolic 124–140; BP diastolic 51–65; PULSE 68–93; RESP 18–24; TEMP 35.9–36.4; O2SAT 93–96
--- NOTE | 2022-05-26 00:02 | ECG_ITS ---
Measurements Intervals [place] Rate: 83 P: 49 TN: 225 QRS: 7 QRSD: 93 T: 68 QT: 377 QTc: 443 Interpretive Statements SINUS RHYTHM WITH FIRST DEGREE AV BLOCK NONSPECIFIC T-WAVE ABNORMALITY BASELINE ARTIFACT LOW-VOLTAGE QRS IN PRECORDIAL LEADS BORDERLINE ECG COMPARED TO ECG 05/25/2022 16:28:23 FIRST DEGREE AV BLOCK NOW PRESENT Electronically Signed On 05-26-2022 12:30:30 CDT by Clay Hogan M.D.
[2022-05-26] MEDS: ATORVASTATIN 10 MG TABLET PO ×2 (00:52→21:11)
[2022-05-26] MEDS: carvediloL 12.5 MG TABLET PO ×3 (00:52→21:11)
[2022-05-26] MEDS: INSULIN GLARGINE (*BKC) 100 UNITS/ML 55 UNITS SUB-Q ×2 (00:53→21:11)
[2022-05-26] MEDS: traMADol HCL (*CRX) 25 MG TABLET PO ×2 (05:05→12:48)
[2022-05-26] MEDS: LEVOTHYROXINE SODIUM 50 MCG TABLET PO (05:06)
[2022-05-26 05:43] LABS: Alanine Aminotransferase 11 U/L (6-35); Albumin Level 3.6 g/dL (3.5-5.1); Alkaline Phosphatase 86 U/L (38-126); Anion Gap 8 mmol/L (8-16); Aspartate Amino Transferase 17 U/L (14-36); Bilirubin,Total 0.5 mg/dL (0.2-1.3); Blood Urea Nitrogen 61 mg/dL (7-17); CRP 1.7 mg/dL (<1.0); Calcium 9.5 mg/dL (8.4-10.2); Carbon Dioxide 29 mmol/L (22-30); Chloride 101 mmol/L (98-107); Estimated CRCL calculation 29 ml/min; Estimated Glomerular Filt Rate 20; Glucose 212 mg/dL (65-110); Magnesium 2.1 mg/dL (1.6-2.3); Potassium 4.3 mmol/L (3.4-5.0); Sodium 138 mmol/L (137-145)
[2022-05-26 05:52] LABS: Parathyroid Intact 240.6 pg/mL (7.5-53.5)
[2022-05-26 06:28] LABS: Vitamin D 25 Hydroxy 22.5 ng/mL
--- NOTE | 2022-05-26 06:47 | PC.NURSE ---
This patient, Beto Bryan, was transferred to [facility] on 05/27/22 at 2200. Personal belongings sent with patient. Report given to JANICE Bonilla. Appropriate documentation sent with patient.
[2022-05-26 07:47] LABS: Glucose Point of Care 188 mg/dl (65-105)
--- NOTE | 2022-05-26 07:57 | PC.NURSE ---
Spoke with Dr. Martines regarding pt's history of CHF. Pt has already received 2L of fluid and is taking oral intake. BUN & Cr have improved since admission. New order to hold IVF until seen by
[2022-05-26] MEDS: OMEGA 3 POLYUNSAT FATTY ACIDS 1 GM CAP PO (09:18)
[2022-05-26] MEDS: FUROSEMIDE 20 MG TABLET 60 MG PO ×2 (09:18→17:43)
[2022-05-26] MEDS: MAGNESIUM OXIDE 400 MG TABLET PO (09:18)
[2022-05-26] MEDS: ASPIRIN 81 MG CHEWABLE TABLET PO (09:18)
[2022-05-26] MEDS: CHOLECALCIFEROL 1,000 UNITS TABLET 2000 UNITS PO (09:18)
[2022-05-26] MEDS: FLUTICASONE PROPIONATE 0.05% NA SPR 16 GM BTL (*BKC) 1 SPRAY NASAL ×2 (09:18→21:10)
[2022-05-26] MEDS: allopurinoL 300 MG TABLET PO (09:18)
[2022-05-26] MEDS: POTASSIUM CHLORIDE 20 MEQ TABLET.ER PO (09:18)
[2022-05-26] MEDS: ESCITALOPRAM OXALATE 10 MG TABLET 20 MG PO (09:18)
[2022-05-26] MEDS: PANTOPRAZOLE 40 MG TABLET PO (09:19)
[2022-05-26] MEDS: ENOXAPARIN 40 MG/0.4 ML SYRINGE SUB-Q (09:19)
[2022-05-26 09:30] LABS: Hemoglobin A1C 8.4 % (<5.7)
[2022-05-26] MEDS: FLUTICASONE/SALMETEROL 115-21 MCG INHALER 1 PUFF 2 PUFF INHALATION ×2 (10:39→21:44)
[2022-05-26 11:55] LABS: Glucose Point of Care 228 mg/dl (65-105)
[2022-05-26] MEDS: INSULIN ASPART (*BKC) 100 UNITS/ML SUB-Q ×2 (12:48→17:44)
[2022-05-26 16:37] LABS: Glucose Point of Care 211 mg/dl (65-105)
--- NOTE | 2022-05-26 16:42 | P.PNIM_ITS ---
Progress Note: A&P Assessment and Plan (1) Headache: Code(s): R51.9 - Headache, unspecified Status: Acute Assessment and Plan: According to patient CT she has some mild left mastoid effusion. -she was ordered p.r.n. Ultram -Flonase continued -IV fluids were given -Reglan was given -she has light sensitivity. -Tylenol was given -aspirin was given -Dilaudid was given -Benadryl was given 05/26/2022 interval history: patient with history of left-sided head now is worsening, CT scan of the head did not show any acute injury to further evaluate patient had MRI of the brain which is also negative, however patient's pain intensity is improving, there was also concern for thyroid nodule and patient had a ultrasound that showed benign and no further workup is needed, there is also history DVT not anticoagulated, venous dopplor is pending, will have PT/OT evaluate the patient. (2) Diabetes: Code(s): E11.9 - Type 2 diabetes mellitus without complications Status: Chronic Assessment and Plan: -Accu-Cheks AC and HS with sliding scale insulin. -check A1c -continue home dose of Lantus (3) Chronic kidney disease, stage IV (severe): Code(s): N18.4 - Chronic kidney disease, stage 4 (severe) Status: Chronic Assessment and Plan: -patient at her baseline. Continue to monitor (4) Obstructive sleep apnea on CPAP: Code(s): G47.33 - Obstructive sleep apnea (adult) (pediatric); Z99.89 - Dependence on other enabling machines and devices Status: Acute Assessment and Plan: The patient does not wear CPAP machine but wears oxygen at 2 L per nasal cannula at night. Continue with this. (5) Personal history of pulmonary embolism: Code(s): Z86.711 - Personal history of pulmonary embolism Status: Acute Assessment and Plan: does not appear to be on any anticoagulation. (6) History of DVT (deep vein thrombosis): Code(s): Z86.718 - Personal history of other venous thrombosis and embolism Status: Acute Assessment and Plan: Is not currently on any anticoagulation. She is not short of breath at this time nor she tachycardic or tachypneic. I will order venous Doppler since the patient has 2+ pitting edema. (7) Thoracic aortic aneurysm, without rupture: Code(s): I71.2 - Thoracic aortic aneurysm, without rupture Status: Acute Assessment and Plan: The patient tells me that is being monitored outpatient. (8) Thyroid nodule: Code(s): E04.1 - Nontoxic single thyroid nodule Status: Acute Assessment and Plan: This is being monitored outpatient as well. (9) Hyperparathyroidism: Code(s): E21.3 - Hyperparathyroidism, unspecified Status: Acute Assessment and Plan: -Patient's calcium is mildly elevated. Will check PTH and thyroid. -follow hyper calcemia protocol (10) Hypothyroidism: Qualifiers: Hypothyroidism type: acquired Qualified Code(s): E03.9 - Hypothyroidism, unspecified Code(s): E03.9 - Hypothyroidism, unspecified Status: Acute Assessment and Plan: -monitor thyroid nodule -monitor thyroid levels -continue with levothyroxine (11) Asthma: Qualifiers: Asthma complication type: with acute exacerbation Code(s): J45.909 - Unspecified asthma, uncomplicated Status: Chronic Assessment and Plan: -continue with inhalers from home (12) Gout: Code(s): M10.9 - Gout, unspecified Status: Acute Assessment and Plan: -cont
[2022-05-26 20:33] LABS: Glucose Point of Care 231 mg/dl (65-105)
[2022-05-26] MEDS: ACETAMINOPHEN 325 MG TABLET 650 MG PO (21:08)
[2022-05-27 06:00] VITALS: BP 116/60; PULSE 67; RESP 18; TEMP 36.1; O2SAT 97
[2022-05-27] MEDS: LEVOTHYROXINE SODIUM 50 MCG TABLET PO (06:04)
[2022-05-27 07:52] LABS: Hematocrit 38.6 % (37.0-47.0); Hemoglobin 11.6 g/dL (12.0-15.0); Mean Corpuscular HGB Conc 30.1 g/dl (32-36); Mean Corpuscular Hemoglobin 30.8 pg (26-34); Mean Corpuscular Volume 102.4 fl (80-100); Mean Platelet Volume 10.5 fl (7.4-10.4); Platelet Count Result 207 k/mm3 (150-375); Red Blood Count 3.77 M/mm3 (4.2-5.4); Red Cell Distribution Width 16.5 % (11.5-14.5); White Blood Count 7.7 K/mm3 (4.5-10.0)
[2022-05-27 08:06] LABS: Albumin Level 3.9 g/dL (3.5-5.1); Anion Gap 8 mmol/L (8-16); Blood Urea Nitrogen 61 mg/dL (7-17); Carbon Dioxide 30 mmol/L (22-30); Chloride 100 mmol/L (98-107); Estimated CRCL calculation 27 ml/min; Estimated Glomerular Filt Rate 18; Glucose 113 mg/dL (65-110); Phosphorus 4.1 mg/dL (2.5-4.5); Sodium 138 mmol/L (137-145)
[2022-05-27 08:12] LABS: Glucose Point of Care 107 mg/dl (65-105)
[2022-05-27] MEDS: ASPIRIN 81 MG CHEWABLE TABLET PO (08:19)
[2022-05-27] MEDS: FLUTICASONE PROPIONATE 0.05% NA SPR 16 GM BTL (*BKC) 1 SPRAY NASAL (08:19)
[2022-05-27] MEDS: OMEGA 3 POLYUNSAT FATTY ACIDS 1 GM CAP PO (08:20)
[2022-05-27] MEDS: MAGNESIUM OXIDE 400 MG TABLET PO (08:20)
[2022-05-27] MEDS: PANTOPRAZOLE 40 MG TABLET PO (08:20)
[2022-05-27] MEDS: FUROSEMIDE 20 MG TABLET 60 MG PO (08:20)
[2022-05-27] MEDS: CHOLECALCIFEROL 1,000 UNITS TABLET 2000 UNITS PO (08:20)
[2022-05-27] MEDS: ENOXAPARIN 40 MG/0.4 ML SYRINGE SUB-Q (08:20)
[2022-05-27] MEDS: ESCITALOPRAM OXALATE 10 MG TABLET 20 MG PO (08:20)
[2022-05-27] MEDS: POTASSIUM CHLORIDE 20 MEQ TABLET.ER PO (08:20)
[2022-05-27] MEDS: allopurinoL 300 MG TABLET PO (08:20)
[2022-05-27] MEDS: carvediloL 12.5 MG TABLET PO (08:21)
[2022-05-27] MEDS: FLUTICASONE/SALMETEROL 115-21 MCG INHALER 1 PUFF 2 PUFF INHALATION (08:23)
[2022-05-27] MEDS: ACETAMINOPHEN 325 MG TABLET 650 MG PO (08:24)
[2022-05-27] MEDS: SENNA/DOCUSATE SODIUM TABLET 1 TAB PO (09:58)
[2022-05-27] MEDS: polyethylene glycoL 3350 17 GM POWD.PACK PO (09:58)
--- NOTE | 2022-05-27 10:34 | PM.DS ---
DS: Admitting Diagnosis Discharge Date 05/27/2022 Admitting Diagnosis headache DS: Discharge Diagnosis Discharge Diagnosis (1) Headache: Code(s): R51.9 - Headache, unspecified Status: Acute Assessment and Plan: According to patient CT she has some mild left mastoid effusion. -she was ordered p.r.n. Ultram -Flonase continued -IV fluids were given -Reglan was given -she has light sensitivity. -Tylenol was given -aspirin was given -Dilaudid was given -Benadryl was given 05/26/2022 interval history: patient with history of left-sided head now is worsening, CT scan of the head did not show any acute injury to further evaluate patient had MRI of the brain which is also negative, however patient's pain intensity is improving, there was also concern for thyroid nodule and patient had a ultrasound that showed benign and no further workup is needed, there is also history DVT not anticoagulated, venous dopplor is pending, will have PT/OT evaluate the patient. (2) Diabetes: Code(s): E11.9 - Type 2 diabetes mellitus without complications Status: Chronic Assessment and Plan: -Accu-Cheks AC and HS with sliding scale insulin. -check A1c -continue home dose of Lantus (3) Chronic kidney disease, stage IV (severe): Code(s): N18.4 - Chronic kidney disease, stage 4 (severe) Status: Chronic Assessment and Plan: -patient at her baseline. Continue to monitor (4) Obstructive sleep apnea on CPAP: Code(s): G47.33 - Obstructive sleep apnea (adult) (pediatric); Z99.89 - Dependence on other enabling machines and devices Status: Acute Assessment and Plan: The patient does not wear CPAP machine but wears oxygen at 2 L per nasal cannula at night. Continue with this. (5) Personal history of pulmonary embolism: Code(s): Z86.711 - Personal history of pulmonary embolism Status: Acute Assessment and Plan: does not appear to be on any anticoagulation. (6) History of DVT (deep vein thrombosis): Code(s): Z86.718 - Personal history of other venous thrombosis and embolism Status: Acute Assessment and Plan: Is not currently on any anticoagulation. She is not short of breath at this time nor she tachycardic or tachypneic. I will order venous Doppler since the patient has 2+ pitting edema. (7) Thoracic aortic aneurysm, without rupture: Code(s): I71.2 - Thoracic aortic aneurysm, without rupture Status: Acute Assessment and Plan: The patient tells me that is being monitored outpatient. (8) Thyroid nodule: Code(s): E04.1 - Nontoxic single thyroid nodule Status: Acute Assessment and Plan: This is being monitored outpatient as well. (9) Hyperparathyroidism: Code(s): E21.3 - Hyperparathyroidism, unspecified Status: Acute Assessment and Plan: -Patient's calcium is mildly elevated. Will check PTH and thyroid. -follow hyper calcemia protocol (10) Hypothyroidism: Qualifiers: Hypothyroidism type: acquired Qualified Code(s): E03.9 - Hypothyroidism, unspecified Code(s): E03.9 - Hypothyroidism, unspecified Status: Acute Assessment and Plan: -monitor thyroid nodule -monitor thyroid levels -continue with levothyroxine (11) Asthma: Qualifiers: Asthma complication type: with acute exacerbation Code(s): J45.909 - Unspecified asthma, uncomplicated Status: Chronic Assessment and Plan: -continue with inhalers from home (12) Gout: Code(s): M10.9 - Gout, unspecified Status: Acute Assessment and Plan: -continue with allopurinol (13) Anemia: Code(s): D64.9 - Anemia, unspecified Status: Acute Assessment and Plan: -Chronic most likely due to chronic renal disease. -Monitor CBC is signs and symptoms of bleeding (14) Hyperlipidemia: Code(s): E78.5 - Hyperlipidemia, unspecified Statu
[2022-05-27 11:14] LABS: EDCOVIDSCREEN Negative (Negative)
[2022-05-27 12:20] LABS: Glucose Point of Care 244 mg/dl (65-105)
[2022-05-31 07:27] LABS: Angiotensin Converting Enzyme 30 U/L (9-67)
[2022-05-31 19:44] LABS: Vitamin D 1,25 (OH)2 Total 23 pg/mL (18-72); Vitamin D2 1,25 (OH)2 <8 pg/mL; Vitamin D3 1,25 (OH)2 23 pg/mL
[2022-06-01 05:11] LABS: Calcium/Creatinine Ratio, Ur 52 mg/g creat (10-320); Urine Calcium, Random 3.2 mg/dL (***)
== END 2022-05-27 12:20 ==
LOC: ANHED 19:01 → ANHIMU 05-26 02:29 → ANH3MEDSUR 05-27 10:34 → ANHIMU 05-28 08:51
PROVIDERS: Nurse Practitioner; Admitting Provider Chiropractor; Emergency Provider Emergency Medicine; PCP Family Medicine; Visit Provider Family Medicine
DX: R51.9 Headache, unspecified (principal); E11.22 Type 2 diabetes mellitus with diabetic chronic kidney disease; I13.0 Hypertensive heart and chronic kidney disease with heart failure and stage 1 through stage 4 chronic kidney disease, or unspecified chronic kidney disease; N18.4 Chronic kidney disease, stage 4 (severe); G47.33 Obstructive sleep apnea (adult) (pediatric); Z99.89 Dependence on other enabling machines and devices; E11.40 Type 2 diabetes mellitus with diabetic neuropathy, unspecified; J96.11 Chronic respiratory failure with hypoxia; Z99.81 Dependence on supplemental oxygen; Z86.711 Personal history of pulmonary embolism; Z86.718 Personal history of other venous thrombosis and embolism; I71.2 Thoracic aortic aneurysm, without rupture; E04.1 Nontoxic single thyroid nodule; E21.3 Hyperparathyroidism, unspecified; E03.9 Hypothyroidism, unspecified; J45.909 Unspecified asthma, uncomplicated; M10.9 Gout, unspecified; D64.9 Anemia, unspecified; E78.5 Hyperlipidemia, unspecified; Z20.822 Contact with and (suspected) exposure to COVID-19; E66.01 Morbid (severe) obesity due to excess calories; Z68.43 Body mass index [BMI] 50.0-59.9, adult; H74.8X2 Other specified disorders of left middle ear and mastoid; R11.2 Nausea with vomiting, unspecified; E86.0 Dehydration; I50.9 Heart failure, unspecified; I44.0 Atrioventricular block, first degree; Z79.4 Long term (current) use of insulin; Z79.02 Long term (current) use of antithrombotics/antiplatelets; Z79.82 Long term (current) use of aspirin; Z79.1 Long term (current) use of non-steroidal anti-inflammatories (NSAID); Z79.51 Long term (current) use of inhaled steroids; Z79.899 Other long term (current) drug therapy; Z82.49 Family history of ischemic heart disease and other diseases of the circulatory system; Z83.3 Family history of diabetes mellitus; Z82.3 Family history of stroke; Z84.89 Family history of other specified conditions
CPT/HCPCS: 36415; 70450; 70553; 71046; 76536; 80053; 80069; 81001; 82164; 82306; 82310; 82570; 82652; 82948; 83036; 83690; 83735; 83970; 84443; 84484; 85025; 85027; 85610; 85652; 85730; 86140; 87426; 93005; 93970; 94640; 96361; 96372; 96374; 96375; 97161; 97165; 99285; A9270; A9577; C9803; G0378; J0131; J1170; J1200; J1650; J1815; J2765; J7030; U0003; U0005

== ENCOUNTER 2022-07-06 14:09 | Outpatient (CLI) | payer MEDICARE, BC, SELFPAY ==
[2022-07-06 14:55] LABS: Anion Gap 13 mmol/L (8-16); Blood Urea Nitrogen 65 mg/dL (7-17); Calcium 10.4 mg/dL (8.4-10.2); Carbon Dioxide 25 mmol/L (22-30); Chloride 99 mmol/L (98-107); Cholesterol 190 mg/dL (0-200); Estimated Glomerular Filt Rate 19; Glucose 118 mg/dL (65-110); HDL Direct 33 mg/dL; Potassium 4.1 mmol/L (3.4-5.0); Sodium 137 mmol/L (137-145); Triglycerides 382 mg/dL (<150)
[2022-07-06 15:06] LABS: LDL Cholesterol Direct 64 mg/dL
== END 2022-07-06 14:10 | disposition home or self-care (01) ==
LOC: ANHLAB 14:12
PROVIDERS: PCP Family Medicine; Visit Provider Internal Medicine Cardiovascular Disease
DX: I50.32 Chronic diastolic (congestive) heart failure (principal); I10 Essential (primary) hypertension; E78.5 Hyperlipidemia, unspecified; N18.4 Chronic kidney disease, stage 4 (severe)
CPT/HCPCS: 36415; 80048; 80061

== ENCOUNTER 2022-07-15 07:04 | Outpatient (CLI) | payer MEDICARE, BC, SELFPAY ==
--- NOTE | ~2022-07-15 | XR_ITS ---
EXAMINATION: XR UGI w barium swallow DATE: 07/15/2022 08:10 INDICATION: Dysphagia, unspecified. TECHNIQUE: The patient drank thin barium. Fluoroscopy of the esophagus, stomach, and proximal small b owel was performed. Fluoroscopy exposure time was 0.9 minutes. The total number of images was 531. To sulema dose-area product was 4.359 Gy-cm^2. COMPARISON: CT 12/29/2021 FINDINGS: There is no mass or stricture of the esophagus. There is decreased primary and secondary es ophageal peristalsis. No abnormal tertiary waves. There is no hiatal hernia. The stomach and proximal small bowel show normal folding patterns. IMPRESSION: 1. Moderate esophageal dysmotility. Reviewed, dictated and finalized at location A.
== END 2022-07-15 07:05 | disposition home or self-care (01) ==
PROVIDERS: PCP Family Medicine; Visit Provider Nurse Practitioner Family
DX: R13.10 Dysphagia, unspecified (principal)
CPT/HCPCS: 74240

== ENCOUNTER 2022-07-27 09:56 | Outpatient (CLI) | payer MEDICARE, BC, SELFPAY ==
--- NOTE | 2022-07-27 12:21 | WPDSIXMINUTE ---
Six Minute Walk Procedure Procedure Performed Pulmonary Stress Test (6 min walk) Six Minute Walk Six Minute Walk: This is a 6 minute walk test. The test was performed and interpreted in accordance with the 2014 ERS/ATS task force guidelines. Of note the patient used a wheeled walker in stopped in the middle of the test for 5 seconds. Findings: The patient's resting room air oxygen saturation measured by pulse oximetry was 95% and heart rate was 81 bpm. Patient ambulated for 122 meters and oxygen saturation remained 86% to 91%. Heart rate at the end of the study was 90 bpm. The patient did qualify for supplemental oxygen with ambulation and a formal home O2 assessment should be performed to determine her oxygen requirements. There are no prior studies for comparison.
--- NOTE | 2022-07-27 12:24 | WPDPFTINT ---
PFT Procedure Performed PFT Procedure Performed Spirometry with Pre/Post Bronchodilator Plethysmography (Lung Vol) Diffusing Cap (DLCO) Flow Vol Loop PFT Interpretation This is a pulmonary function test with pre and post-bronchodilator spirometry, plethysmography and diffusing capacity. The test was performed and results interpreted in accordance with the 2019 and 2005 ATS/ERS Task Force guidelines respectively using the Global Lung Function Initiative-2012 reference equations. Patient demonstrated good effort and cooperation. Reproducibility criteria were met. The quality of the pre bronchodilator spirometry maneuver was Grade A and post bronchodilator spirometry maneuver was Grade B. Findings: Spirometry: the contour the inspiratory and expiratory flow tracing are normal. The pre bronchodilator FVC is 2.67 L, 92% predicted. The pre bronchodilator FEV1 is 2.03 L, 90% predicted. The pre bronchodilator FEV1: FVC ratio is 76%. The post bronchodilator FVC is 2.34 L, representing a 12% decrease. The post bronchodilator FEV1 is 1.94 L, representing a 4% decrease. The post bronchodilator FEV1: FVC ratio was 83%. Plethysmography: The total lung capacity is 4.19 L, 81% predicted. The functional residual capacity is 2.43 L, 82% predicted. The residual volume is 1.52 L, 68% predicted. Diffusing capacity: The diffusing capacity unadjusted for hemoglobin and carboxyhemoglobin is 13.7, 66% predicted. The diffusing capacity adjusted for alveolar volume is 3.61, 85% predicted. Impression: The spirometry is normal without evidence of an obstructive abnormality. There is no significant improvement after inhaling a single dose of albuterol. The lung volumes are normal. The diffusing capacity unadjusted for hemoglobin and carboxyhemoglobin is mildly decreased and normalizes when adjusted for alveolar volume. There are no prior studies for comparison
== END 2022-07-27 09:57 | disposition home or self-care (01) ==
LOC: ANHPFT 09:58
PROVIDERS: PCP Family Medicine; Visit Provider Internal Medicine Pulmonary Disease
DX: J96.11 Chronic respiratory failure with hypoxia (principal); J45.30 Mild persistent asthma, uncomplicated
CPT/HCPCS: 94060; 94618; 94726; 94729

== ENCOUNTER 2022-08-10 10:22 | Outpatient (CLI) | payer MEDICARE, BC, SELFPAY ==
--- NOTE | ~2022-08-10 | MM_ITS ---
EXAMINATION: MM screening joselin BI w yaw HISTORY: Screening TECHNIQUE: Craniocaudal and mediolateral oblique 3-D tomosynthesis images were obtained and synthetic 2-D images were generated. CAD analysis was submitted and interpreted. COMPARISON: 05/26/2021 BREAST PARENCHYMAL COMPOSITION: There are scattered areas of fibroglandular density. FINDINGS: There is no evidence of suspicious mass, calcification, or architectural distortion to sugg est malignancy in either breast. There has been no suspicious interval change. IMPRESSION: 1. No mammographic evidence of malignancy. 2. Recommend routine screening mammography in one year. BI-RADS Category 1: Negative Reviewed, dictated and finalized at location A.
== END 2022-08-10 10:23 | disposition home or self-care (01) ==
PROVIDERS: PCP Family Medicine; Visit Provider Family Medicine
DX: Z12.31 Encounter for screening mammogram for malignant neoplasm of breast (principal)
CPT/HCPCS: 77063; 77067

== ENCOUNTER 2022-08-17 10:07 | Outpatient (CLI) | payer MEDICARE, BC, SELFPAY ==
[2022-08-17 10:46] LABS: Anion Gap 15 mmol/L (8-16); Blood Urea Nitrogen 55 mg/dL (7-17); Calcium 9.9 mg/dL (8.4-10.2); Carbon Dioxide 30 mmol/L (22-30); Chloride 96 mmol/L (98-107); Estimated Glomerular Filt Rate 19; Glucose 142 mg/dL (65-110); Potassium 4.3 mmol/L (3.4-5.0); Sodium 141 mmol/L (137-145)
[2022-08-17 11:00] LABS: Parathyroid Intact 228.4 pg/mL (7.5-53.5)
[2022-08-17 11:19] LABS: Creatinine Urine 125.1 mg/dL
[2022-08-17 11:39] LABS: MALB Creatinine Ratio 181.9 mg/g (0-30); Microalbumin Urine Random 227.5 mg/L (0-16.7)
== END 2022-08-17 10:08 | disposition home or self-care (01) ==
PROVIDERS: PCP Family Medicine
DX: N18.4 Chronic kidney disease, stage 4 (severe) (principal)
CPT/HCPCS: 36415; 80048; 82043; 83970

== ENCOUNTER 2022-12-07 09:36 | Outpatient (CLI) | payer MEDICARE, BC, SELFPAY ==
[2022-12-07 10:13] VITALS: PULSE 118; O2SAT 89
[2022-12-07 10:15] VITALS: PULSE 82; PULSE 89; O2SAT 93; O2SAT 94
--- NOTE | 2022-12-07 10:36 | HOMEO2EVAL ---
Evaluation was performed at [facility] Home Oxygen Evaluation RC: Home Oxygen (O2) Evaluation Start: 12/07/22 10:33 Freq: Status: Active Protocol: RPE Activity Type Activity Date Activity User E-sign Co-sign Detail Recorded Client Recorded Date Recorded By Document 12/07/22 10:13 KATERIN [id number] 12/07/22 10:36 KATERIN Document 12/07/22 10:15 KATERIN [id number] 12/07/22 10:36 KATERIN Document 12/07/22 10:15 KATERIN [id number] 12/07/22 10:36 KATERIN 12/07/22 12/07/22 12/07/22 10:13 10:15 10:15 Home O2 Evaluation [Oxygen] -Test Phase Exercise Resting Resting -Oxygen Delivery Room Air Room Air Room Air [Pulse Oximetry] -Pulse Oximetry (90-100 %) 89 L 94 93 [Pulse Rate] -Pulse Rate (60-100 beats/min) 118 H 82 89 [Exercise] -Ambulation Distance (feet) 350 -Ambulation Distance (meters) 106.67 [Comments] -Home Oxygen Evaluation Comments NO HOME O2 REQUIRED AT THIS TIME [Charges] -Treatment Charges O2 Evaluation - Outpatient
== END 2022-12-07 09:37 | disposition home or self-care (01) ==
LOC: ANHPFT 09:39
PROVIDERS: PCP Family Medicine; Visit Provider Internal Medicine Pulmonary Disease
DX: J96.11 Chronic respiratory failure with hypoxia (principal)
CPT/HCPCS: 94618

== ENCOUNTER 2023-01-25 08:44 | Outpatient (CLI) | payer MEDICARE, BC, SELFPAY ==
[2023-01-25 09:19] LABS: Anion Gap 6 mmol/L (8-16); Blood Urea Nitrogen 51 mg/dL (7-17); Carbon Dioxide 31 mmol/L (22-30); Chloride 99 mmol/L (98-107); Cholesterol 190 mg/dL (0-200); Estimated Glomerular Filt Rate 19; Glucose 185 mg/dL (65-110); HDL Direct 40 mg/dL; Potassium 4.1 mmol/L (3.4-5.0); Sodium 136 mmol/L (137-145); Triglycerides 293 mg/dL (<150)
[2023-01-25 09:30] LABS: LDL Cholesterol Direct 67 mg/dL
[2023-01-25 09:56] LABS: Free T4 Free Thyroxine 1.14 ng/mL (0.78-2.19)
[2023-01-25 10:32] LABS: Creatinine Urine 76.2 mg/dL
[2023-01-25 10:37] LABS: MALB Creatinine Ratio 244.8 mg/g (0-30); Microalbumin Urine Random 186.5 mg/L (0-16.7)
== END 2023-01-25 08:45 | disposition home or self-care (01) ==
PROVIDERS: PCP Family Medicine; Visit Provider Internal Medicine Endocrinology, Diabetes & Metabolism
DX: N18.32 Chronic kidney disease, stage 3b (principal); E11.22 Type 2 diabetes mellitus with diabetic chronic kidney disease; Z79.4 Long term (current) use of insulin
CPT/HCPCS: 36415; 80048; 80061; 82043; 82607; 84439; 84443

== ENCOUNTER 2023-02-01 08:49 | Outpatient (CLI) | payer MEDICARE, BC, SELFPAY ==
--- NOTE | ~2023-02-01 | US_ITS ---
EXAMINATION: US thyroid DATE: 02/01/2023 09:21 INDICATION: Nontoxic single thyroid nodule. TECHNIQUE: Multiple ultrasound images of the thyroid were obtained. COMPARISON: Ultrasound 05/26/2022 FINDINGS: The right thyroid lobe measures 5.4 x 2.1 x 2.1 cm. The left thyroid lobe measures 4.4 x 1.9 x 1.9 c m. There are multiple subcentimeter nodules in the thyroid. In the right thyroid lobe, there is a 1. 3 cm solid, hypoechoic, wider than tall nodule with lobulated margin without echogenic foci (TI-RADS TR4), stable from 04/03/18 when biopsy was benign. In the left thyroid lobe, there is a 1.4 cm almost completely cystic nodule (TR1). IMPRESSION: 1. Thyroid nodules, likely not clinically significant. No follow-up is needed. Reviewed, dictated and finalized at location A.
== END 2023-02-01 08:50 | disposition home or self-care (01) ==
PROVIDERS: PCP Family Medicine; Visit Provider Internal Medicine Endocrinology, Diabetes & Metabolism
DX: E04.2 Nontoxic multinodular goiter (principal)
CPT/HCPCS: 76536

== ENCOUNTER 2023-03-01 08:43 | Outpatient (CLI) | payer MEDICARE, BC, SELFPAY ==
[2023-03-01 09:30] LABS: Anion Gap 7 mmol/L (8-16); Blood Urea Nitrogen 58 mg/dL (7-17); Calcium 9.7 mg/dL (8.4-10.2); Carbon Dioxide 31 mmol/L (22-30); Chloride 100 mmol/L (98-107); Estimated Glomerular Filt Rate 20; Glucose 182 mg/dL (65-110); Potassium 4.2 mmol/L (3.4-5.0); Sodium 138 mmol/L (137-145); Uric Acid 4.5 mg/dL (2.5-7.5)
[2023-03-01 10:13] LABS: MALB Creatinine Ratio 119.2 mg/g (0-30); Microalbumin Urine Random 104.9 mg/L (0-16.7)
== END 2023-03-01 08:44 | disposition home or self-care (01) ==
DX: N18.4 Chronic kidney disease, stage 4 (severe) (principal); E21.3 Hyperparathyroidism, unspecified; E55.9 Vitamin D deficiency, unspecified
CPT/HCPCS: 36415; 80048; 82043; 82306; 83970; 84550

== ENCOUNTER 2023-03-04 10:06 | Outpatient (CLI) | payer MEDICARE, BC, SELFPAY ==
[2023-03-04 10:37] LABS: Hemoglobin 11.6 g/dL (12.0-15.0); Mean Corpuscular HGB Conc 30.5 g/dl (32-36); Mean Corpuscular Volume 98.2 fl (80-100); Mean Platelet Volume 9.7 fl (7.4-10.4); Platelet Count Result 225 k/mm3 (150-375); Red Blood Count 3.87 M/mm3 (4.2-5.4); Red Cell Distribution Width 16.5 % (11.5-14.5); White Blood Count 8.8 K/mm3 (4.5-10.0)
== END 2023-03-04 10:07 | disposition home or self-care (01) ==
PROVIDERS: PCP Family Medicine; Visit Provider Nurse Practitioner Family
DX: E11.22 Type 2 diabetes mellitus with diabetic chronic kidney disease (principal); N18.32 Chronic kidney disease, stage 3b; Z79.4 Long term (current) use of insulin; R13.10 Dysphagia, unspecified
CPT/HCPCS: 36415; 85027

== ENCOUNTER 2023-06-23 12:00 | Emergency (ER) | payer MEDICARE, BC, SELFPAY ==
--- NOTE | ~2023-06-23 | CT_ITS ---
EXAMINATION: CT abdomen pelvis wo con DATE: 06/23/2023 19:00 INDICATION: Right flank pain. TECHNIQUE: Computed tomography (CT) of the abdomen and pelvis was performed without intravenous contr ast. Automated exposure control and iterative reconstruction technique were employed. The dose-length product was 1437.49 mGy-cm. COMPARISON: CT abdomen and pelvis 12/29/2021 FINDINGS: The visualized portions of the lung bases demonstrate mild atelectasis. No pleural effusion . There is left atrial enlargement of the heart. No pericardial effusion. The liver is normal. There are changes of cholecystectomy. The spleen, pancreas, and adrenal glands are normal. There is cortica l thinning of the kidneys. There is no urolithiasis. There is diverticulosis of the colon without jorge dence of diverticulitis. There are no dilated loops of bowel. The appendix is not visualized. There i s mild aortic atherosclerosis. There are no pathologically enlarged lymph nodes. There is no free int raperitoneal fluid. There is subcutaneous fat stranding superficial to right posterior superior iliac spine. There is mild thoracic and lumbar spondylosis. IMPRESSION: 1. Subcutaneous fat stranding superficial to right posterior superior iliac spine, consistent with in flammation versus hematoma. Reviewed, dictated and finalized at location E. IMPRESSION: 1. Subcutaneous fat stranding superficial to right posterior superior iliac spi ne, consistent with inflammation versus hematoma.
--- NOTE | ~2023-06-23 | US_ITS ---
EXAMINATION: US venous doppler [facility] DATE: 06/23/2023 20:40 INDICATION: Lower limb edema and pain. TECHNIQUE: Grayscale ultrasound images without and with compression and Doppler ultrasound images of the bilateral lower extremity veins were obtained. COMPARISON: Ultrasound 05/26/2022 FINDINGS: The visualized portions of right common femoral vein, profunda (deep) femoral vein, femoral vein, pop liteal vein, peroneal veins, posterior tibial veins, and greater saphenous vein outflow are patent. The visualized portions of left common femoral vein, profunda femoral vein, femoral vein, popliteal v ein, peroneal veins, posterior tibial veins, and greater saphenous vein outflow are patent. IMPRESSION: 1. No deep venous thrombosis. Reviewed, dictated and finalized at location E.
[2023-06-23 12:03] VITALS: BP 145/71; PULSE 66; RESP 20; TEMP 36.4; O2SAT 96
[2023-06-23 12:26] LABS: Basophils Absolute Auto 0.1 K/mm3 (0.0-0.1); Basophils Percent Auto 0.5 % (0.2-1.2); Eosinophils Absolute Auto 0.4 K/mm3 (0-0.3); Eosinophils Percent Auto 4.5 % (0-4.4); Hematocrit 38.4 % (37.0-47.0); Immature Granulocyte Absolute 0.03 K/mm3 (0.00-0.031); Immature Granulocyte Percent A 0.3 % (0-0.5); Lymphocytes Absolute Auto 2.18 K/mm3 (0.9-3.2); Lymphocytes Percent Auto 23.9 % (18.3-44.2); Mean Corpuscular HGB Conc 31.3 g/dl (32-36); Mean Corpuscular Hemoglobin 30.8 pg (26-34); Mean Corpuscular Volume 98.5 fl (80-100); Monocytes Absolute Auto 0.7 K/mm3 (0.1-0.6); Monocytes Percent Auto 7.3 % (2.6-8.5); Neutrophils Absolute Auto 5.8 K/mm3 (1.3-6.7); Neutrophils Percent Auto 63.5 % (45.5-73.1); Platelet Count Result 229 k/mm3 (150-375); Red Cell Distribution Width 16.1 % (11.5-14.5); White Blood Count 9.1 K/mm3 (4.5-10.0)
[2023-06-23 12:35] LABS: Alanine Aminotransferase 13 U/L (6-35); Albumin Level 3.8 g/dL (3.5-5.1); Alkaline Phosphatase 105 U/L (38-126); Anion Gap 10 mmol/L (8-16); Aspartate Amino Transferase 18 U/L (14-36); Bilirubin,Total 0.4 mg/dL (0.2-1.3); Blood Urea Nitrogen 55 mg/dL (7-17); Calcium 10.5 mg/dL (8.4-10.2); Carbon Dioxide 28 mmol/L (22-30); Chloride 98 mmol/L (98-107); Estimated CRCL calculation 25 ml/min; Estimated Glomerular Filt Rate 17; Glucose 129 mg/dL (65-110); Potassium 4.5 mmol/L (3.4-5.0); Sodium 136 mmol/L (137-145)
[2023-06-23 16:00] VITALS: BP 146/66; PULSE 69; RESP 18; TEMP 36.2; O2SAT 97
[2023-06-23 16:56] LABS: Glucose Point of Care 173 mg/dl (65-105)
[2023-06-23 17:00] VITALS: BP 155/74; PULSE 64; RESP 18; O2SAT 93
[2023-06-23 18:00] VITALS: BP 139/74; PULSE 63; RESP 16; O2SAT 90
--- NOTE | 2023-06-23 18:35 | ECG_ITS ---
Measurements Intervals [place] Rate: 64 P: 83 OK: 207 QRS: -35 QRSD: 92 T: 54 QT: 422 QTc: 436 Interpretive Statements SINUS RHYTHM LEFT AXIS DEVIATION LOW QRS VOLTAGE IN PRECORDIAL LEADS PATTERN CONSISTENT WITH PULMONARY DISEASE BORDERLINE T WAVE ABNORMALITY- ANTERIOR LEADS BASELINE ARTIFACT- I, II, III, AVR, AVL, AVF BORDERLINE ECG COMPARED TO ECG 05/26/2022 00:02:44 LEFT-AXIS DEVIATION NOW PRESENT Electronically Signed On 06-24-2023 6:43:49 CDT by Lucian España D.O.
--- NOTE | 2023-06-23 18:40 | ED.GENADULT ---
HPI - General Adult General Chief complaint: Unspecified <Lorena Hollingsworth PA-C - Last Filed: 06/24/23 02:21> Stated complaint: lower back pain/decreased UOP, numbness hands/feet <Lorena Hollingsworth PA-C - Last Filed: 06/24/23 02:21> Time Seen by Provider: 06/23/23 17:02 <Lorena Hollingsworth PA-C - Last Filed: 06/24/23 02:21> History of Present Illness HPI narrative: 72-year-old female with history of diabetes, hypertension, CKD stage IV, BRADY, thoracic aortic aneurysm, DVT and PE reports for evaluation from residential facility with daughter at bedside for right flank pain/right low back pain and decreased urine output for the past few days. Patient reports she normally urinates every 2 hours, but recently she has been urinating less frequently. She is unable to tell me how frequently she is urinating now. She denies abdominal pain, dysuria or hematuria, history of kidney stones, trauma or recent falls. She is also reporting numbness to her hands and feet for the past few days as well as increased lower extremity edema and pain to her calves. She does report a history of peripheral neuropathy. She denies new onset vision changes, focal numbness or weakness, head injury, neck or back injury. She denies chest pain, dyspnea, cough or congestion, fever, nausea, vomiting, diarrhea, abdominal pain. She reports she went underwent dialysis multiple years ago after what sounds like rhabdomyolysis after a fall where she was on the ground for 5 days, but has not been on dialysis since. 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. <Lroena Hollingsworth PA-C - Last Filed: 06/24/23 02:21> Related Data Home medications: Home Medications Medication Instructions Recorded Confirmed magnesium oxide 400 mg PO DAILY 11/15/19 03/16/23 allopurinol 300 mg tablet 300 mg PO DAILY 03/17/21 03/16/23 furosemide 20 mg tablet (Lasix) 60 mg PO BID 03/17/21 03/16/23 atorvastatin 10 mg tablet 10 mg PO HS 05/27/21 03/16/23 nitroglycerin 0.4 mg sublingual 0.4 mg sublingual Q5M PRN Chest 07/21/21 03/16/23 tablet Pain aspirin 81 mg capsule 81 mg PO DAILY 08/31/21 03/16/23 potassium chloride 20 mEq 20 meq PO DAILY 08/31/21 03/16/23 tablet,extended release fluticasone furoate 100 1 inh inhalation DAILY 12/29/21 03/16/23 mcg-vilanterol 25 mcg/dose inhalation powder (Breo Ellipta) omega-3 fatty acids 1,000 mg PO DAILY 12/29/21 03/16/23 carvedilol 12.5 mg tablet 12.5 mg PO Q12H 01/17/22 03/16/23 cholecalciferol (vitamin D3) 50 50 mcg PO DAILY 05/25/22 03/16/23 mcg (2,000 unit) tablet acetaminophen 500 mg tablet 500 mg PO 07/13/22 03/16/23 fexofenadine 180 mg tablet 180 mg PO 07/13/22 03/16/23 guanfacine 2 mg tablet 2 mg PO 07/13/22 03/16/23 furosemide 40 mg tablet 40 mg PO BID 12/21/22 03/16/23 insulin glargine 100 unit/mL (3 15 unit subcut QAM 05/03/23 mL) subcutaneous pen (Basaglar KwikPen U-100 Insulin) <Lorena Hollingsworth PA-C - Last Filed: 06/24/23 02:21> Allergies/adverse reactions: Allergies Allergy/AdvReac Type Severity Reaction Status Date / Time No Known Allergies Allergy Verified 05/03/23 10:54 <Lorena Hollingsworth PA-C - Last Filed: 06/24/23 02:21> Review of Systems Review of Systems: CONSTITUTIONAL: Denies fever, chills EYES: Denies visual changes, redness, or discharge. ENT: Denies rhinorrhea, congestion, sore throat, or otalgia. CARDIOVASCULAR: Denies chest pain, palpitations, or edema. RESPIRATORY: Denies cough or dyspnea. GASTROINTESTINAL: Denies abdominal pain, nausea, vomiting, or diarrhea. GENITOURINARY: Denies dysuria or hematuria. SKIN: Denies rash or itching. MUSCULOSKELETAL: See HPI NEUROLOGIC: See HPI PSYCHIATRIC: Denies anxiety or depression. <Lorena Hollingsworth PA-C - Last Filed: 06/24/23 02:21> [facility] Past Medical History Medical History: Medical History BRADY (acute kidney injury) Ane
[2023-06-23] MEDS: ACETAMINOPHEN 325 MG TABLET 650 MG PO (19:10)
[2023-06-23 19:22] LABS: Lipase 86 U/L (23-300)
[2023-06-23 19:37] LABS: Appearance Urine Cloudy (Clear); Bacteria Urine 4+ /hpf; Bilirubin Urine Negative (Negative); Blood Urine Negative (Negative); Color Urine Yellow (Yellow); Glucose Urine UA Negative (Negative); Ketones Urine Negative (Negative); Leukocyte Esterase Ur 2+ LEU/UL (Negative); Nitrate Urine Negative (Negative); Non Pathogenic Casts 0-2; Protein Urine Trace mg/dL (Negative); RBC Urine 0-2 /hpf (0-2); Squamous Epithelial Cell Urine Few /hpf (Few); Urobilinogen Urine 0.2 mg/dL (<2.0); WBC Urine 51-100 /hpf
[2023-06-23 19:42] LABS: Add Urine Microscopic? YES
[2023-06-23 21:10] VITALS: PULSE 68; RESP 25; O2SAT 93
[2023-06-23 22:00] VITALS: RESP 21
[2023-06-23] MEDS: CEPHALEXIN 500 MG CAPSULE PO (22:01)
== END 2023-06-23 22:22 ==
PROVIDERS: Student in an Organized Health Care Education/Training Program; Emergency Provider Physician Assistant; PCP Family Medicine
DX: R10.9 Unspecified abdominal pain (principal); R82.998 Other abnormal findings in urine; E11.22 Type 2 diabetes mellitus with diabetic chronic kidney disease; I13.0 Hypertensive heart and chronic kidney disease with heart failure and stage 1 through stage 4 chronic kidney disease, or unspecified chronic kidney disease; N18.4 Chronic kidney disease, stage 4 (severe); I50.9 Heart failure, unspecified; I71.20 Thoracic aortic aneurysm, without rupture, unspecified; J44.9 Chronic obstructive pulmonary disease, unspecified; J96.11 Chronic respiratory failure with hypoxia; E11.40 Type 2 diabetes mellitus with diabetic neuropathy, unspecified; E78.5 Hyperlipidemia, unspecified; E21.3 Hyperparathyroidism, unspecified; E03.9 Hypothyroidism, unspecified; G47.33 Obstructive sleep apnea (adult) (pediatric); M10.9 Gout, unspecified; M47.816 Spondylosis without myelopathy or radiculopathy, lumbar region; Z99.81 Dependence on supplemental oxygen; Z86.711 Personal history of pulmonary embolism; Z86.718 Personal history of other venous thrombosis and embolism; Z90.49 Acquired absence of other specified parts of digestive tract; Z90.710 Acquired absence of both cervix and uterus; Z79.82 Long term (current) use of aspirin; Z79.4 Long term (current) use of insulin; R94.31 Abnormal electrocardiogram [ECG] [EKG]; R93.7 Abnormal findings on diagnostic imaging of other parts of musculoskeletal system
CPT/HCPCS: 36415; 74176; 80053; 81001; 82948; 83690; 85025; 87077; 87086; 87186; 93005; 93970; 99284; A9270; J0696

== ENCOUNTER 2023-09-06 10:28 | Outpatient (CLI) | payer MEDICARE, BC, SELFPAY ==
[2023-09-06 11:34] LABS: Hematocrit 41.1 % (37.0-47.0); Mean Corpuscular HGB Conc 31.6 g/dl (32-36); Mean Corpuscular Hemoglobin 31.3 pg (26-34); Mean Corpuscular Volume 98.8 fl (80-100); Mean Platelet Volume 10.2 fl (7.4-10.4); Platelet Count Result 239 k/mm3 (150-375); Red Blood Count 4.16 M/mm3 (4.2-5.4); Red Cell Distribution Width 16.5 % (11.5-14.5); White Blood Count 9.2 K/mm3 (4.5-10.0)
[2023-09-06 11:45] LABS: Anion Gap 13 mmol/L (8-16); Blood Urea Nitrogen 58 mg/dL (7-17); Calcium 10.9 mg/dL (8.4-10.2); Carbon Dioxide 25 mmol/L (22-30); Chloride 99 mmol/L (98-107); Estimated Glomerular Filt Rate 18; Glucose 178 mg/dL (65-110); Potassium 4.4 mmol/L (3.4-5.0); Sodium 137 mmol/L (137-145); Uric Acid 5.3 mg/dL (2.5-7.5)
[2023-09-06 11:57] LABS: Parathyroid Intact 187.1 pg/mL (7.5-53.5)
[2023-09-06 11:58] LABS: Creatinine Urine 127.6 mg/dL
[2023-09-06 12:59] LABS: MALB Creatinine Ratio 164.7 mg/g (0-30); Microalbumin Urine Random 210.1 mg/L (0-16.7)
== END 2023-09-06 10:29 | disposition home or self-care (01) ==
PROVIDERS: PCP Family Medicine
DX: N18.4 Chronic kidney disease, stage 4 (severe) (principal)
CPT/HCPCS: 36415; 80048; 82043; 83970; 84550; 85027

== ENCOUNTER 2023-12-08 13:33 | Outpatient (CLI) | payer MEDICARE, BC, SELFPAY ==
[2023-12-08 16:23] LABS: Hepatitis B Surface Antigen Negative (Negative)
[2023-12-08 16:29] LABS: HAV RESULT Negative (Negative); Hepatitis B Core IgM Result Negative (Negative)
[2023-12-08 16:35] LABS: HIV 1/2 Ab P24 Ag Result Negative (Negative)
[2023-12-08 16:41] LABS: Hepatitis C Virus Antibody Negative (Negative)
[2023-12-08 21:36] LABS: HIV 1/2 Ab P24 Ag 0.09
[2023-12-08 21:37] LABS: Hepatitis B Core Antibody, IgM 0.01 S/C; Hepatitis B Surface Antigen 0.01 S/C; Hepatitis C Virus Antibody 0.06 S/C
[2023-12-09 16:55] LABS: Rapid Plasma Reagin Non-Reactive (NonReactive)
== END 2023-12-08 13:34 | disposition home or self-care (01) ==
PROVIDERS: PCP Family Medicine; Visit Provider Family Medicine
DX: R10.9 Unspecified abdominal pain (principal); Z11.4 Encounter for screening for human immunodeficiency virus [HIV]; Z11.3 Encounter for screening for infections with a predominantly sexual mode of transmission
CPT/HCPCS: 36415; 80074; 86592; 86703; G0432

== ENCOUNTER 2023-12-13 10:24 | Outpatient (CLI) | payer MEDICARE, BC, SELFPAY ==
--- NOTE | ~2023-12-13 | MM_ITS ---
EXAMINATION: MM screening joselin BI w yaw HISTORY: Screening TECHNIQUE: Craniocaudal and mediolateral oblique 3-D tomosynthesis images were obtained and synthetic 2-D images were generated. CAD analysis was submitted and interpreted. COMPARISON: Comparison to multiple prior studies sequentially, with oldest reviewed study dated 12/2020. BREAST PARENCHYMAL COMPOSITION: Not dense: There are scattered areas of fibroglandular density. FINDINGS: There is no evidence of suspicious mass, calcification, or architectural distortion to sugg est malignancy in either breast. There has been no suspicious interval change. IMPRESSION: 1. No mammographic evidence of malignancy. 2. Recommend routine screening mammography in one year. BI-RADS Category 1: Negative Reviewed, dictated and finalized at location A. TAPER
== END 2023-12-13 10:25 | disposition home or self-care (01) ==
PROVIDERS: PCP Family Medicine; Visit Provider Family Medicine
DX: Z12.31 Encounter for screening mammogram for malignant neoplasm of breast (principal)
CPT/HCPCS: 77063; 77067

== ENCOUNTER 2024-01-03 09:55 | Outpatient (CLI) | payer MEDICARE, BC, SELFPAY ==
[2024-01-03 10:34] LABS: Hematocrit 38.4 % (37.0-47.0); Hemoglobin 12.1 g/dL (12.0-15.0); Mean Corpuscular HGB Conc 31.5 g/dl (32-36); Mean Corpuscular Hemoglobin 31.9 pg (26-34); Mean Corpuscular Volume 101.3 fl (80-100); Platelet Count Result 249 k/mm3 (150-375); Red Blood Count 3.79 M/mm3 (4.2-5.4); Red Cell Distribution Width 15.5 % (11.5-14.5); White Blood Count 8.7 K/mm3 (4.5-10.0)
[2024-01-03 10:48] LABS: Anion Gap 8 mmol/L (8-16); Blood Urea Nitrogen 55 mg/dL (7-17); Calcium 8.3 mg/dL (8.4-10.2); Carbon Dioxide 29 mmol/L (22-30); Chloride 99 mmol/L (98-107); Estimated Glomerular Filt Rate 23; Glucose 206 mg/dL (65-110); Potassium 4.3 mmol/L (3.4-5.0); Sodium 136 mmol/L (137-145); Uric Acid 5.7 mg/dL (2.5-7.5)
[2024-01-03 11:25] LABS: Creatinine Urine 57.7 mg/dL
[2024-01-03 11:33] LABS: Parathyroid Intact 72.1 pg/mL (7.5-53.5)
[2024-01-03 11:56] LABS: Microalbumin Urine Random 228.3 mg/L (0-16.7)
[2024-01-03 11:57] LABS: MALB Creatinine Ratio 395.7 mg/g (0-30)
== END 2024-01-03 09:56 | disposition home or self-care (01) ==
PROVIDERS: PCP Family Medicine
DX: E21.3 Hyperparathyroidism, unspecified (principal); N18.4 Chronic kidney disease, stage 4 (severe)
CPT/HCPCS: 36415; 80048; 82043; 83970; 84550; 85027

== ENCOUNTER 2024-02-08 08:52 | Emergency (ER) | payer MEDICARE, BC, SELFPAY ==
--- NOTE | ~2024-02-08 | CT_ITS ---
CT head without contrast Indication: Head trauma Technique: Serial scans were obtained through the brain without the administration of contrast. Dose reduction technique was used on this scan by utilizing automated exposure control and iterative recon struction technique. The dose-length product (DLP) was 605.33 mGy-cm. Findings: There is no evidence of intracranial hemorrhage, mass lesion, or acute infarct. The ventri cles and subarachnoid spaces are dilated, consistent with minimal atrophy. Low attenuation regions a re seen within the periventricular white matter bilaterally, likely representing changes from chronic microvascular ischemic disease. There is no evidence of edema, mass effect or midline shift. The v isualized paranasal sinuses and mastoid air cells are clear. Impression: No intracranial hemorrhage, mass, or acute infarct. Atrophy and chronic white matter changes, as above. Reviewed, dictated and finalized at location . Impression: No intracranial hemorrhage, mass, or acute infarct. Atrophy and chronic white matter changes, as above.
--- NOTE | ~2024-02-08 | XR_ITS ---
Right Knee Technique: AP, lateral, and oblique views were obtained. Clinical History: Pain Findings: No fracture or dislocation is seen. Osseous alignment is anatomic. Joint spaces are preserv ed without degenerative or erosive change. Chondrocalcinosis of the menisci noted. No joint effusion is seen. Impression: No fracture or dislocation. Chondrocalcinosis of the menisci. Reviewed, dictated and finalized at location M. Impression: No fracture or dislocation. Chondrocalcinosis of the menisci.
--- NOTE | ~2024-02-08 | CT_ITS ---
Noncontrast CT scan of the cervical spine Technique: Multiple contiguous axial [address] images of the cervical spine were obtained and rec onstructed in 2D sagittal and coronal planes on the acquisition scanner. Dose reduction technique was used on this scan by utilizing automated exposure control, adjustment of the mA and/or kV according to patient size. The dose-length product (DLP) was 525.98 mGy-cm. Clinical History: Pain Findings: No fractures or dislocations. There is advanced degenerative change at the articulation of the odontoid process with the anterior arch of C1. There are minimal degenerative disc changes in th e cervical spine. No prevertebral soft tissue swelling. Impression: No fracture or subluxation of the cervical spine. Reviewed, dictated and finalized at [facility]. Impression: No fracture or subluxation of the cervical spine.
[2024-02-08 08:53] VITALS: BP 132/80; PULSE 74; RESP 13; TEMP 36.6; O2SAT 95
--- NOTE | 2024-02-08 09:00 | ED.FALL ---
HPI - Fall General Chief Complaint: Fall Stated Complaint: GLF, knee and head pain Time Seen by Provider: 02/08/24 08:55 Source: patient Mode of arrival: ambulatory Limitations: no limitations History of Present Illness HPI Narrative: Beto is a 73-year-old female patient presenting to the emergency room today with complaints of a ground level fall hitting her head, neck, and injuring her right knee. She was brought in by EMS. She [place] that [facility] and tripped over a transition in the floor. States she fell and her neck/head hit the walker. Denies any loss of consciousness. She is alert and oriented x4. Declined C-collar for EMS Related Data Home Medications Medication Instructions Recorded Confirmed magnesium oxide 400 mg PO DAILY 11/15/19 07/26/23 allopurinol 300 mg tablet 300 mg PO DAILY 03/17/21 07/26/23 atorvastatin 10 mg tablet 10 mg PO HS 05/27/21 07/26/23 aspirin 81 mg capsule 81 mg PO DAILY 08/31/21 07/26/23 potassium chloride 20 mEq 20 meq PO DAILY 08/31/21 07/26/23 tablet,extended release fluticasone furoate 100 1 inh inhalation DAILY 12/29/21 07/26/23 mcg-vilanterol 25 mcg/dose inhalation powder (Breo Ellipta) omega-3 fatty acids 1,000 mg PO DAILY 12/29/21 07/26/23 carvedilol 12.5 mg tablet 12.5 mg PO Q12H 01/17/22 07/26/23 cholecalciferol (vitamin D3) 50 50 mcg PO DAILY 05/25/22 07/26/23 mcg (2,000 unit) tablet guanfacine 2 mg tablet 2 mg PO 07/13/22 07/26/23 furosemide 40 mg tablet 40 mg PO BID 12/21/22 07/26/23 furosemide 20 mg tablet (Lasix) 20 mg PO BID 07/07/23 07/26/23 insulin glargine 100 unit/mL (3 28 unit subcut QAM 01/24/24 mL) subcutaneous pen (Basaglar KwikPen U-100 Insulin) insulin lispro 100 unit/mL 50 unit subcut DAILY E11.65 - Type 01/24/24 subcutaneous pen (Humalog KwikPen 2 diabetes mellitus with (U-100) Insulin) hyperglycem lidocaine 2 %-glycerin mucosal kit ml mucous membrane 01/24/24 pen needle, diabetic 30 gauge x 01/24/24 1/ sodium chloride 0.65 % nasal spray 2 spray intranasal Q4H 01/24/24 aerosol (Deep Sea Nasal) [id number]-migumolbuxolf-mvaueziw 1 cap PO Q6H PRN Pain 02/08/24 50 mg-300 mg-40 mg capsule (Fioricet) cholecalciferol (vitamin D3) 50 02/08/24 02/08/24 mcg (2,000 unit) tablet cinacalcet 30 mg tablet mg PO 02/08/24 02/08/24 fexofenadine 180 mg tablet mg 02/08/24 02/08/24 Allergies Allergy/AdvReac Type Severity Reaction Status Date / Time No Known Allergies Allergy Verified 02/08/24 09:19 Review of Systems Review of Systems: Pertinent positives per HPI. Patient denies any fever, chills, rash, visual changes, dizziness, cough, runny nose, sore throat, shortness of breath, chest pain, palpitations, nausea, vomiting, diarrhea, constipation, abdominal pain, or any urinary issues. [facility] Past Medical History Medical History BRADY (acute kidney injury) Anemia Aortic aneurysm Asthma Carpal tunnel syndrome on both sides Cephalgia CHF (congestive heart failure), NYHA class I Chronic kidney disease, stage 4 (severe) Chronic respiratory failure with hypoxia, on home oxygen therapy COPD (chronic obstructive pulmonary disease) Decubitus skin ulcer Deep venous thrombosis Diabetic neuropathy Diabetic polyneuropathy Dysphagia Gout Hypercalcemia Hyperkalemia Hyperlipidemia Hyperparathyroidism Hypertension Hyponatremia Hypothyroidism Neuropathy Obstructive sleep apnea on CPAP Osteoarthritis of facet joint of lumbar spine Pulmonary embolism Thoracic aortic aneurysm, without rupture Thyroid nodule Type 2 diabetes mellitus with hyperglycemia Surgical History Surgical History History of appendectomy History of cardiac catheterization History of cholecystectomy History of hysterectomy Family History Family History (Reviewed 02/08/24 @ 09:38 by James Palm
[2024-02-08 09:40] VITALS: BP 125/72; RESP 21; O2SAT 92
[2024-02-08 09:46] VITALS: BP 125/73; PULSE 64; RESP 19; O2SAT 90
[2024-02-08 10:01] VITALS: BP 129/73; PULSE 66; RESP 15; O2SAT 92
[2024-02-08 11:11] VITALS: BP 128/76; PULSE 67; RESP 18; O2SAT 98
[2024-02-08 11:44] VITALS: BP 129/73; PULSE 68; RESP 16
== END 2024-02-08 11:46 | disposition home or self-care (01) ==
PROVIDERS: Emergency Provider Nurse Practitioner Family; PCP Family Medicine
DX: S09.90XA Unspecified injury of head, initial encounter (principal); S80.01XA Contusion of right knee, initial encounter; S19.9XXA Unspecified injury of neck, initial encounter; E11.22 Type 2 diabetes mellitus with diabetic chronic kidney disease; I13.0 Hypertensive heart and chronic kidney disease with heart failure and stage 1 through stage 4 chronic kidney disease, or unspecified chronic kidney disease; N18.4 Chronic kidney disease, stage 4 (severe); I50.9 Heart failure, unspecified; J96.11 Chronic respiratory failure with hypoxia; Z99.81 Dependence on supplemental oxygen; E11.42 Type 2 diabetes mellitus with diabetic polyneuropathy; E03.9 Hypothyroidism, unspecified; G47.33 Obstructive sleep apnea (adult) (pediatric); M10.9 Gout, unspecified; M47.816 Spondylosis without myelopathy or radiculopathy, lumbar region; Z86.718 Personal history of other venous thrombosis and embolism; Z86.711 Personal history of pulmonary embolism; Z90.49 Acquired absence of other specified parts of digestive tract; Z90.710 Acquired absence of both cervix and uterus; Z79.82 Long term (current) use of aspirin; Z79.4 Long term (current) use of insulin; W18.09XA Striking against other object with subsequent fall, initial encounter
CPT/HCPCS: 70450; 72125; 73562; 99284

== ENCOUNTER 2024-03-21 09:04 | Outpatient (CLI) | payer MEDICARE, BC, SELFPAY ==
--- NOTE | ~2024-03-21 | XR_ITS ---
EXAM: XR abdomen/kub 1V DATE: 03/21/2024 10:16 HISTORY: diarrhea . COMPARISON: 04/25/2017; CT abdomen pelvis 06/23/2023. FINDINGS: Cholecystectomy clips. Normal bowel gas pattern. No organomegaly. No abnormal abdominal ca lcification. Degenerative changes in the lumbar spine and bilateral hips. IMPRESSION: No radiographic evidence of obstruction or ileus. Reviewed, dictated and finalized at location K.
--- NOTE | ~2024-03-21 | XR_ITS ---
Clinical Indication: Shortness of breath PA and lateral views of the chest: Comparison: 05/25/2022 Findings: There are areas of linear scarring at the bilateral lung bases. No definite acute pulmonary abnormality seen.. Cardiomediastinal silhouette is within normal limits. Bones and soft tissues are unremarkable. Impression: No acute abnormality evident. Linear areas of bilateral scarring are similar to prior exam. Reviewed, dictated and finalized at [facility]. Impression: No acute abnormality evident. Linear areas of bilateral scarring are similar to prior exam.
[2024-03-21 09:41] LABS: Hematocrit 40.4 % (37.0-47.0); Hemoglobin 12.6 g/dL (12.0-15.0); Mean Corpuscular HGB Conc 31.2 g/dl (32-36); Mean Corpuscular Hemoglobin 32.2 pg (26-34); Mean Corpuscular Volume 103.3 fl (80-100); Mean Platelet Volume 9.9 fl (7.4-10.4); Platelet Count Result 263 k/mm3 (150-375); Red Blood Count 3.91 M/mm3 (4.2-5.4); Red Cell Distribution Width 15.9 % (11.5-14.5); White Blood Count 9.5 K/mm3 (4.5-10.0)
[2024-03-21 09:59] LABS: Alanine Aminotransferase 13 U/L (6-35); Alkaline Phosphatase 96 U/L (38-126); Anion Gap 8 mmol/L (4-12); Aspartate Amino Transferase 19 U/L (14-36); Bilirubin,Total 0.5 mg/dL (0.2-1.3); Blood Urea Nitrogen 63 mg/dL (7-17); Calcium 8.7 mg/dL (8.4-10.2); Carbon Dioxide 30 mmol/L (22-30); Chloride 97 mmol/L (98-107); Estimated Glomerular Filt Rate 18; Glucose 223 mg/dL (65-110); Sodium 135 mmol/L (137-145)
== END 2024-03-21 09:05 | disposition home or self-care (01) ==
PROVIDERS: PCP Family Medicine; Visit Provider Nurse Practitioner Family
DX: R19.4 Change in bowel habit (principal); R19.7 Diarrhea, unspecified; R06.02 Shortness of breath
CPT/HCPCS: 36415; 71046; 74018; 80053; 84443; 85027

== ENCOUNTER 2024-03-23 12:14 | Emergency (ER) | payer MEDICARE, BC, SELFPAY ==
--- NOTE | ~2024-03-23 | XR_ITS ---
XR chest 2V 03/23/2024 13:55 Indication: Shortness of breath. History of blood clots. Procedure: 2 view chest Comparison: Comparison to multiple prior studies sequentially, with oldest reviewed study dated 11/2021. Findings: Shallow inspiration. There are chronic linear infiltrates of the mid and lower lungs, most likely atelectasis/scarring. No acute focal pneumonia, pleural effusion or pneumothorax. No edema. No acute osseous abnormality. Impression: 1: No acute cardiopulmonary disease. Reviewed, dictated and finalized at location B. Impression: 1: No acute cardiopulmonary disease.
--- NOTE | ~2024-03-23 | US_ITS ---
EXAMINATION:US venous doppler LE LT INDICATION:Left lower extremity swelling TECHNIQUE: Multiple grayscale, color flow and Doppler images of the left lower extremity deep venous systems were obtained and reviewed. COMPARISON:Ultrasound dated 06/23/2023 FINDINGS: The common femoral, superficial femoral and popliteal veins demonstrate normal respiratory variation, augmentation and compressibility. Color flow is also seen within the posterior tibial, pe roneal, greater saphenous and profunda veins. IMPRESSION: 1: No lower extremity deep venous thrombosis. Reviewed, dictated and finalized at location B.
[2024-03-23 12:32] VITALS: BP 150/70; PULSE 71; RESP 20; TEMP 36.4; O2SAT 92
--- NOTE | 2024-03-23 12:40 | ECG_ITS ---
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 Measurements Intervals [place] Rate: 67 P: 55 MN: 204 QRS: -33 QRSD: 94 T: 68 QT: 413 QTc: 439 Interpretive Statements SINUS RHYTHM MARKED LEFT AXIS DEVIATION [QRS AXIS < -30] PATTERN CONSISTENT WITH PULMONARY DISEASE MODERATE T-WAVE ABNORMALITY, CONSIDER ANTERIOR ISCHEMIA [-0.1+ mV T WAVE IN V3/V4] No previous ECG available for comparison Electronically Signed On 03-24-2024 14:13:59 CDT by Jimmy Brody M.D.
[2024-03-23 13:30] LABS: Basophils Absolute Auto 0.1 K/mm3 (0.0-0.1); Basophils Percent Auto 0.5 % (0.2-1.2); Eosinophils Absolute Auto 0.3 K/mm3 (0-0.3); Eosinophils Percent Auto 3.1 % (0-4.4); Hematocrit 39.2 % (37.0-47.0); Hemoglobin 12.4 g/dL (12.0-15.0); Immature Granulocyte Absolute 0.04 K/mm3 (0.00-0.031); Immature Granulocyte Percent A 0.4 % (0-0.5); Lymphocytes Absolute Auto 2.26 K/mm3 (0.9-3.2); Lymphocytes Percent Auto 24.4 % (18.3-44.2); Mean Corpuscular HGB Conc 31.6 g/dl (32-36); Mean Corpuscular Hemoglobin 32.3 pg (26-34); Mean Corpuscular Volume 102.1 fl (80-100); Mean Platelet Volume 9.9 fl (7.4-10.4); Monocytes Absolute Auto 0.8 K/mm3 (0.1-0.6); Monocytes Percent Auto 8.4 % (2.6-8.5); Neutrophils Absolute Auto 5.8 K/mm3 (1.3-6.7); Neutrophils Percent Auto 63.2 % (45.5-73.1); Platelet Count Result 251 k/mm3 (150-375); Red Blood Count 3.84 M/mm3 (4.2-5.4); Red Cell Distribution Width 15.9 % (11.5-14.5); White Blood Count 9.3 K/mm3 (4.5-10.0)
[2024-03-23 13:31] VITALS: BP 138/77; PULSE 72; RESP 20; O2SAT 94
[2024-03-23 13:39] LABS: Alanine Aminotransferase 13 U/L (6-35); Albumin Level 3.8 g/dL (3.5-5.1); Alkaline Phosphatase 94 U/L (38-126); Anion Gap 8 mmol/L (4-12); Aspartate Amino Transferase 17 U/L (14-36); Bilirubin,Total 0.5 mg/dL (0.2-1.3); Blood Urea Nitrogen 67 mg/dL (7-17); Calcium 8.4 mg/dL (8.4-10.2); Carbon Dioxide 27 mmol/L (22-30); Chloride 101 mmol/L (98-107); Estimated CRCL calculation 26 ml/min; Estimated Glomerular Filt Rate 19; Glucose 167 mg/dL (65-110); Potassium 3.6 mmol/L (3.4-5.0); Sodium 136 mmol/L (137-145)
--- NOTE | 2024-03-23 14:41 | ED.SOB ---
HPI - SOB/Dyspnea General Chief Complaint: Shortness of Breath/Dyspnea Stated Complaint: short of breath Time Seen by Provider: 03/23/24 13:15 History of Present Illness HPI Narrative: This is a 73-year-old female, with history of COPD DVT and diabetes, who presents to the emergency department complaining of shortness of breath and left leg swelling. The patient states her left leg has appeared more swollen than usual and greater than the right for the past several days, worsening this morning. She complains of some associated shortness of breath. She denies nausea, vomiting, bleeding or hemoptysis. She has no other complaints at this time Related Data Home Medications Medication Instructions Recorded Confirmed magnesium oxide 400 mg PO DAILY 11/15/19 03/13/24 allopurinol 300 mg tablet 300 mg PO DAILY 03/17/21 03/13/24 atorvastatin 10 mg tablet 10 mg PO HS 05/27/21 03/13/24 aspirin 81 mg capsule 81 mg PO DAILY 08/31/21 03/13/24 potassium chloride 20 mEq 20 meq PO DAILY 08/31/21 03/13/24 tablet,extended release fluticasone furoate 100 1 inh inhalation DAILY 12/29/21 03/13/24 mcg-vilanterol 25 mcg/dose inhalation powder (Breo Ellipta) omega-3 fatty acids 1,000 mg PO DAILY 12/29/21 03/13/24 carvedilol 12.5 mg tablet 12.5 mg PO Q12H 01/17/22 03/13/24 cholecalciferol (vitamin D3) 50 50 mcg PO DAILY 05/25/22 03/13/24 mcg (2,000 unit) tablet guanfacine 2 mg tablet 2 mg PO 07/13/22 03/13/24 furosemide 40 mg tablet 40 mg PO BID 12/21/22 03/13/24 furosemide 20 mg tablet (Lasix) 20 mg PO BID 07/07/23 03/13/24 insulin glargine 100 unit/mL (3 28 unit subcut QAM 01/24/24 03/13/24 mL) subcutaneous pen (Basaglar KwikPen U-100 Insulin) insulin lispro 100 unit/mL 50 unit subcut DAILY E11.65 - Type 01/24/24 03/13/24 subcutaneous pen (Humalog KwikPen 2 diabetes mellitus with (U-100) Insulin) hyperglycem lidocaine 2 %-glycerin mucosal kit ml mucous membrane 01/24/24 03/13/24 pen needle, diabetic 30 gauge x 01/24/24 03/13/24 1/ sodium chloride 0.65 % nasal spray 2 spray intranasal Q4H 01/24/24 03/13/24 aerosol (Deep Sea Nasal) [id number]-wbjmdpuumbcia-umqciiat 1 cap PO Q6H PRN Pain 02/08/24 03/13/24 50 mg-300 mg-40 mg capsule (Fioricet) cinacalcet 30 mg tablet mg PO 02/08/24 03/13/24 fexofenadine 180 mg tablet mg 02/08/24 03/13/24 insulin glargine 100 unit/mL (3 15 unit subcut QAM 03/13/24 03/13/24 mL) subcutaneous pen (Basaglar KwikPen U-100 Insulin) Allergies Allergy/AdvReac Type Severity Reaction Status Date / Time No Known Allergies Allergy Verified 03/23/24 12:23 Review of Systems Review of Systems: All systems reviewed & are unremarkable except as noted in HPI and below PMFSH Past Medical History Medical History BRADY (acute kidney injury) Anemia Aortic aneurysm Asthma Carpal tunnel syndrome on both sides Cephalgia Change in bowel habits CHF (congestive heart failure), NYHA class I Chronic kidney disease, stage 4 (severe) Chronic respiratory failure with hypoxia, on home oxygen therapy COPD (chronic obstructive pulmonary disease) Decubitus skin ulcer Deep venous thrombosis Diabetic neuropathy Diabetic polyneuropathy Dysphagia Gout Hypercalcemia Hyperkalemia Hyperlipidemia Hyperparathyroidism Hypertension Hyponatremia Hypothyroidism Neuropathy Obstructive sleep apnea on CPAP Osteoarthritis of facet joint of lumbar spine Pulmonary embolism Thoracic aortic aneurysm, without rupture Thyroid nodule Type 2 diabetes mellitus with hyperglycemia Surgical History Surgical History History of appendectomy History of cardiac catheterization History of cholecystectomy History of hysterectomy Family History Family History Mother Diabetes mellitus Family history of bipolar disorder Hypertension Father Family history o
[2024-03-23 16:01] LABS: NT Pro B Type Natriuretic Pept 895 pg/mL (19.9-100); Troponin I < 0.012 ng/mL (0.000-0.034)
[2024-03-23 17:00] VITALS: BP 138/77; PULSE 78; RESP 18; O2SAT 94
[2024-03-23] MEDS: FUROSEMIDE INJ 40 MG/4 ML VIAL IV PUSH (17:27)
== END 2024-03-23 17:35 ==
PROVIDERS: Emergency Medicine; Emergency Provider Preventive Medicine Aerospace Medicine; PCP Family Medicine
DX: L03.116 Cellulitis of left lower limb (principal); M79.89 Other specified soft tissue disorders; I13.0 Hypertensive heart and chronic kidney disease with heart failure and stage 1 through stage 4 chronic kidney disease, or unspecified chronic kidney disease; E11.22 Type 2 diabetes mellitus with diabetic chronic kidney disease; I50.9 Heart failure, unspecified; N18.4 Chronic kidney disease, stage 4 (severe); E78.5 Hyperlipidemia, unspecified; D64.9 Anemia, unspecified; J96.11 Chronic respiratory failure with hypoxia; Z99.81 Dependence on supplemental oxygen; J44.9 Chronic obstructive pulmonary disease, unspecified; E11.42 Type 2 diabetes mellitus with diabetic polyneuropathy; M10.9 Gout, unspecified; E03.9 Hypothyroidism, unspecified; G47.33 Obstructive sleep apnea (adult) (pediatric); I71.20 Thoracic aortic aneurysm, without rupture, unspecified; Z86.718 Personal history of other venous thrombosis and embolism; Z79.82 Long term (current) use of aspirin; Z79.51 Long term (current) use of inhaled steroids; Z79.4 Long term (current) use of insulin
CPT/HCPCS: 36415; 71046; 80053; 83880; 84484; 85025; 93005; 93971; 96374; 99284; J1940

== ENCOUNTER 2024-03-25 12:47 | Emergency (ER) | payer MEDICARE, BC, SELFPAY ==
--- NOTE | ~2024-03-25 | XR_ITS ---
XR chest 2V 03/25/2024 13:14 Indication: Cough. Dyspnea. Procedure: 2 view chest Comparison: Comparison to multiple prior studies sequentially, with oldest reviewed study dated 05/2022. Findings: Shallow inspiration with crowding of the pulmonary vessels. There are interstitial infiltra nick which may relate to crowded pulmonary vasculature. There is subsegmental atelectasis/scarring lef t mid lung, unchanged from prior studies. No pleural effusion or pneumothorax. No acute osseous abnor mality. Impression: 1: Chronic left perihilar atelectasis/scarring. 2: Bibasilar interstitial infiltrates which may represent crowding of the pulmonary vasculature, atel ectasis or less likely mild edema. Reviewed, dictated and finalized at location B. Impression: 1: Chronic left perihilar atelectasis/scarring. 2: Bibasilar interstitial infiltrates which may represent crowding of the pulmo nary vasculature, atelectasis or less likely mild edema.
[2024-03-25 12:45] VITALS: BP 135/66; PULSE 77; RESP 18; TEMP 36.5; O2SAT 92
--- NOTE | 2024-03-25 12:59 | ECG_ITS ---
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 Measurements Intervals [place] Rate: 67 P: 55 HI: 206 QRS: -18 QRSD: 92 T: 75 QT: 411 QTc: 436 Interpretive Statements SINUS RHYTHM NONSPECIFIC T-WAVE ABNORMALITY ABNORMAL ECG Compared to ECG 03/23/2024 12:50:19 NO SIGNIFICANT CHANGE Electronically Signed On 03-26-2024 07:18:33 CDT by Hoang Davis M.D.
--- NOTE | 2024-03-25 13:01 | ED.SOB ---
HPI - SOB/Dyspnea General Chief Complaint: Shortness of Breath/Dyspnea Stated Complaint: SOB Time Seen by Provider: 03/25/24 12:53 History of Present Illness HPI Narrative: Patient presenting with shortness of breath, cough, for the last 2 days. Was seen here recently a few days ago diagnosed with CHF exacerbation and told to increase her Lasix. Related Data Home Medications Medication Instructions Recorded Confirmed magnesium oxide 400 mg PO DAILY 11/15/19 03/13/24 allopurinol 300 mg tablet 300 mg PO DAILY 03/17/21 03/13/24 atorvastatin 10 mg tablet 10 mg PO HS 05/27/21 03/13/24 aspirin 81 mg capsule 81 mg PO DAILY 08/31/21 03/13/24 potassium chloride 20 mEq 20 meq PO DAILY 08/31/21 03/13/24 tablet,extended release fluticasone furoate 100 1 inh inhalation DAILY 12/29/21 03/13/24 mcg-vilanterol 25 mcg/dose inhalation powder (Breo Ellipta) omega-3 fatty acids 1,000 mg PO DAILY 12/29/21 03/13/24 carvedilol 12.5 mg tablet 12.5 mg PO Q12H 01/17/22 03/13/24 cholecalciferol (vitamin D3) 50 50 mcg PO DAILY 05/25/22 03/13/24 mcg (2,000 unit) tablet guanfacine 2 mg tablet 2 mg PO 07/13/22 03/13/24 furosemide 40 mg tablet 40 mg PO BID 12/21/22 03/13/24 furosemide 20 mg tablet (Lasix) 20 mg PO BID 07/07/23 03/13/24 insulin glargine 100 unit/mL (3 28 unit subcut QAM 01/24/24 03/13/24 mL) subcutaneous pen (Basaglar KwikPen U-100 Insulin) insulin lispro 100 unit/mL 50 unit subcut DAILY E11.65 - Type 01/24/24 03/13/24 subcutaneous pen (Humalog KwikPen 2 diabetes mellitus with (U-100) Insulin) hyperglycem lidocaine 2 %-glycerin mucosal kit ml mucous membrane 01/24/24 03/13/24 pen needle, diabetic 30 gauge x 01/24/24 03/13/24 1/3 sodium chloride 0.65 % nasal spray 2 spray intranasal Q4H 01/24/24 03/13/24 aerosol (Deep Sea Nasal) [id number]-vpzrpxnvfpabb-gbpdjuku 1 cap PO Q6H PRN Pain 02/08/24 03/13/24 50 mg-300 mg-40 mg capsule (Fioricet) cinacalcet 30 mg tablet mg PO 02/08/24 03/13/24 fexofenadine 180 mg tablet mg 02/08/24 03/13/24 insulin glargine 100 unit/mL (3 15 unit subcut QAM 03/13/24 03/13/24 mL) subcutaneous pen (Basaglar KwikPen U-100 Insulin) Allergies Allergy/AdvReac Type Severity Reaction Status Date / Time No Known Allergies Allergy Verified 03/23/24 12:23 Review of Systems Review of Systems: All systems reviewed & are unremarkable except as noted in HPI and below PMFSH Past Medical History Medical History BRADY (acute kidney injury) Anemia Aortic aneurysm Asthma Carpal tunnel syndrome on both sides Cephalgia Change in bowel habits CHF (congestive heart failure), NYHA class I Chronic kidney disease, stage 4 (severe) Chronic respiratory failure with hypoxia, on home oxygen therapy COPD (chronic obstructive pulmonary disease) Decubitus skin ulcer Deep venous thrombosis Diabetic neuropathy Diabetic polyneuropathy Dysphagia Gout Hypercalcemia Hyperkalemia Hyperlipidemia Hyperparathyroidism Hypertension Hyponatremia Hypothyroidism Neuropathy Obstructive sleep apnea on CPAP Osteoarthritis of facet joint of lumbar spine Pulmonary embolism Thoracic aortic aneurysm, without rupture Thyroid nodule Type 2 diabetes mellitus with hyperglycemia Surgical History Surgical History History of appendectomy History of cardiac catheterization History of cholecystectomy History of hysterectomy Family History Family History Mother Diabetes mellitus Family history of bipolar disorder Hypertension Father Family history of cardiovascular disease Cerebrovascular accident Family history of emphysema Other Family history of anemia Family history of congestive heart failure Family history of obesity Social History Social History Social History: Fry
[2024-03-25 13:18] VITALS: PULSE 69; RESP 18
[2024-03-25] MEDS: IPRATROPIUM 0.5 MG/ALBUTEROL SULFATE 2.5 MG AMPUL.NEB 3 ML INHALATION (13:18)
[2024-03-25 13:32] LABS: Basophils Absolute Auto 0.1 K/mm3 (0.0-0.1); Basophils Percent Auto 0.7 % (0.2-1.2); Eosinophils Absolute Auto 0.3 K/mm3 (0-0.3); Eosinophils Percent Auto 3.3 % (0-4.4); Hematocrit 39.4 % (37.0-47.0); Hemoglobin 12.6 g/dL (12.0-15.0); Immature Granulocyte Absolute 0.04 K/mm3 (0.00-0.031); Immature Granulocyte Percent A 0.5 % (0-0.5); Lymphocytes Absolute Auto 2.15 K/mm3 (0.9-3.2); Lymphocytes Percent Auto 25.7 % (18.3-44.2); Mean Corpuscular Hemoglobin 32.6 pg (26-34); Mean Corpuscular Volume 102.1 fl (80-100); Mean Platelet Volume 9.7 fl (7.4-10.4); Monocytes Absolute Auto 0.7 K/mm3 (0.1-0.6); Neutrophils Absolute Auto 5.2 K/mm3 (1.3-6.7); Neutrophils Percent Auto 61.8 % (45.5-73.1); Platelet Count Result 260 k/mm3 (150-375); Red Blood Count 3.86 M/mm3 (4.2-5.4); Red Cell Distribution Width 16.1 % (11.5-14.5); White Blood Count 8.4 K/mm3 (4.5-10.0)
[2024-03-25 13:34] VITALS: PULSE 68; RESP 18
[2024-03-25 13:42] LABS: Alanine Aminotransferase 13 U/L (6-35); Albumin Level 3.7 g/dL (3.5-5.1); Alkaline Phosphatase 93 U/L (38-126); Anion Gap 6 mmol/L (4-12); Aspartate Amino Transferase 18 U/L (14-36); Bilirubin,Total 0.5 mg/dL (0.2-1.3); Blood Urea Nitrogen 54 mg/dL (7-17); Calcium 8.4 mg/dL (8.4-10.2); Carbon Dioxide 30 mmol/L (22-30); Chloride 101 mmol/L (98-107); Estimated CRCL calculation 26 ml/min; Estimated Glomerular Filt Rate 19; Glucose 115 mg/dL (65-110); Magnesium 2.1 mg/dL (1.6-2.3); Potassium 3.5 mmol/L (3.4-5.0); Sodium 137 mmol/L (137-145)
[2024-03-25 13:50] LABS: NT Pro B Type Natriuretic Pept 626 pg/mL (19.9-100)
[2024-03-25] MEDS: predniSONE 20 MG TABLET 40 MG PO (14:52)
[2024-03-25] MEDS: AZITHROMYCIN 250 MG TABLET 500 MG PO (14:52)
[2024-03-25] MEDS: FUROSEMIDE INJ 40 MG/4 ML VIAL IV PUSH (14:52)
== END 2024-03-25 15:11 | disposition home or self-care (01) ==
PROVIDERS: Emergency Provider Emergency Medicine; PCP Family Medicine
DX: J20.9 Acute bronchitis, unspecified (principal); R60.0 Localized edema; D64.9 Anemia, unspecified; J45.909 Unspecified asthma, uncomplicated; I13.0 Hypertensive heart and chronic kidney disease with heart failure and stage 1 through stage 4 chronic kidney disease, or unspecified chronic kidney disease; E11.22 Type 2 diabetes mellitus with diabetic chronic kidney disease; N18.4 Chronic kidney disease, stage 4 (severe); I50.9 Heart failure, unspecified; Z79.4 Long term (current) use of insulin; E03.9 Hypothyroidism, unspecified; Z86.711 Personal history of pulmonary embolism
CPT/HCPCS: 36415; 71046; 80053; 83735; 83880; 85025; 93005; 94640; 96374; 99284; A9270; J1940; J7512

== ENCOUNTER 2024-06-26 09:59 | Outpatient (CLI) | payer MEDICARE, BC, SELFPAY ==
[2024-06-26 10:43] LABS: Hematocrit 40.9 % (37.0-47.0); Hemoglobin 12.4 g/dL (12.0-15.0); Mean Corpuscular HGB Conc 30.3 g/dl (32-36); Mean Corpuscular Hemoglobin 31.4 pg (26-34); Mean Corpuscular Volume 103.5 fl (80-100); Mean Platelet Volume 10.5 fl (7.4-10.4); Platelet Count Result 249 k/mm3 (150-375); Red Blood Count 3.95 M/mm3 (4.2-5.4); Red Cell Distribution Width 15.6 % (11.5-14.5); White Blood Count 8.2 K/mm3 (4.5-10.0)
[2024-06-26 10:51] LABS: Anion Gap 13 mmol/L (4-12); Blood Urea Nitrogen 58 mg/dL (7-17); Calcium 7.7 mg/dL (8.4-10.2); Carbon Dioxide 29 mmol/L (22-30); Chloride 96 mmol/L (98-107); Estimated Glomerular Filt Rate 16; Glucose 126 mg/dL (65-110); Potassium 4.8 mmol/L (3.4-5.0); Sodium 138 mmol/L (137-145)
[2024-06-26 11:01] LABS: Creatinine Urine 61.2 mg/dL
[2024-06-26 11:01] LABS: NT Pro B Type Natriuretic Pept 1060 pg/mL (19.9-100)
[2024-06-26 11:03] LABS: MALB Creatinine Ratio 166.2 mg/g (0-30); Microalbumin Urine Random 101.7 mg/L (0-16.7)
== END 2024-06-26 10:00 | disposition home or self-care (01) ==
PROVIDERS: PCP Nurse Practitioner Family; Referring Provider Internal Medicine Cardiovascular Disease
DX: I13.0 Hypertensive heart and chronic kidney disease with heart failure and stage 1 through stage 4 chronic kidney disease, or unspecified chronic kidney disease (principal); N18.4 Chronic kidney disease, stage 4 (severe); I50.33 Acute on chronic diastolic (congestive) heart failure
CPT/HCPCS: 36415; 80048; 82043; 83880; 85027

== ENCOUNTER 2024-07-03 09:48 | Outpatient (CLI) | payer MEDICARE, BC, SELFPAY ==
[2024-07-03 10:46] LABS: Albumin Level 4.1 g/dL (3.5-5.1)
[2024-07-04 14:39] LABS: Ionized Calcium 4.2 mg/dL (4.7-5.5)
== END 2024-07-03 09:49 | disposition home or self-care (01) ==
PROVIDERS: PCP Nurse Practitioner Family; Visit Provider Internal Medicine Cardiovascular Disease
DX: E83.51 Hypocalcemia (principal)
CPT/HCPCS: 36415; 82040; 82330

== ENCOUNTER 2024-08-17 12:01 | Inpatient (IN) | payer MEDICARE, BC, SELFPAY ==
[2024-08-17] VITALS (16 sets, daily range): BP systolic 109–138; BP diastolic 58–76; PULSE 62–72; RESP 16–22; TEMP 36.2–36.7; O2SAT 87–98; BMI 50.5
--- NOTE | ~2024-08-17 | MR_ITS ---
EXAMINATION: MR brain/brain stem wo/w con DATE: 09/05/2024 17:08 CONVENTIONS ASSISTANT INDICATION: Stroke TECHNIQUE: Magnetic resonance imaging (MRI) of the abdomen was performed without intravenous contrast . Sequences included coronal T2-weighted SS-FSE, coronal and axial FS 2D-FIESTA, axial STIR FSE, axi al T2-weighted SS-FSE, axial T2-weighted FS SS-FSE, axial diffusion-weighted SE, axial dual-echo T1-w eighted FSPGR, and axial and coronal T1-weighted LAVA. Postcontrast axial T1-weighted LAVA images wer e obtained in a time course. Postcontrast coronal T1-weighted LAVA images were obtained. COMPARISON: 08/22/2024 FINDINGS: No restricted diffusion to suggest acute cerebral infarction. No findings to suggest acute or subacute hemorrhage. Scattered areas of increased T2 signal intensity identified within the periventricular white matter a s well as within the love, unchanged from prior and likely representing microvascular ischemic diseas e. Unremarkable in size for patient of this age. Ventricular size correspond to the degree of sulcal pro minence, common in a senescent brain. Redemonstration of bilateral mastoid effusions, left greater than right. IMPRESSION: No acute cerebral infarction. No acute or subacute hemorrhage. Findings suggesting of microvascular ischemic disease. Bilateral mastoid effusions, left greater than right Reviewed, dictated and finalized at location A. ENTIONS ASSISTANT
--- NOTE | ~2024-08-17 | XR_ITS ---
EXAMINATION: XR lumbar puncture diagnostic DATE: 08/27/2024 15:34 INDICATION: Confusion. TECHNIQUE: The procedure including the risks, benefits, and alternatives was discussed with the patie nt's daughter, who provided consent. The skin overlying the L2-L3 level was prepped and draped in usu al sterile fashion. Subcutaneous 1% lidocaine was used for local anesthesia. A 20 gauge spinal need le was advanced under fluoroscopic guidance. The needle was removed and the entry site was cleaned an d dressed. There were no immediate complications. Fluoroscopy exposure time was 0.1 minutes. The tot al number of images was 1. FINDINGS: Real-time fluoroscopy demonstrates the needle at the L2-L3 level. The opening pressure was <6 cm water (Normal range is variably defined as 6-20 cm water and up to 25 cm water in obese patient s. Pressure >25 cm water is one of the modified Dandy criteria for idiopathic intracranial hypertensi on). 14 mL of clear, colorless fluid was collected in 4 tubes. IMPRESSION: 1. Successful fluoro-guided lumbar puncture. Reviewed, dictated and finalized at location A. NIGHT HOUSEPERSON
--- NOTE | ~2024-08-17 | CT_ITS ---
EXAMINATION: CT chest abdomen pelvis wo con DATE: 08/27/2024 08:48 INDICATION: Confusion. Hypoxia. TECHNIQUE: Computed tomography (CT) of the chest, abdomen, and pelvis was performed without intraveno us contrast. Automated exposure control and iterative reconstruction technique were employed. The dos e-length product was 1949.85 mGy-cm. COMPARISON: CT abdomen and pelvis 06/23/2023, chest CT 12/29/2021 FINDINGS: CHEST CT: Motion artifact is noted. There is mild atelectasis bilaterally. No pleural effusion. There is left a trial enlargement of the heart. There are coronary artery calcifications. No pericardial effusion. Th ere is mild thoracic spondylosis. ABDOMEN/PELVIS CT: The liver is normal. There are changes of cholecystectomy. The spleen, pancreas, adrenal glands, and left kidney are normal. There are cysts in right kidney measuring up to 1.8 cm. There is no urolithia sis. There are no dilated loops of bowel. The appendix is not visualized. There are no pathologically enlarged lymph nodes. There is no free intraperitoneal fluid. There is chronic subcutaneous fat stra nding in right buttock, consistent with old fat necrosis. There is mild lumbar spondylosis. IMPRESSION: 1. Mild atelectasis in the lungs. Reviewed, dictated and finalized at location A. OMER SUCCESS MANAGER
--- NOTE | ~2024-08-17 | US_ITS ---
EXAMINATION: US venous doppler LE RT DATE: 08/29/2024 23:04 INDICATION: Positive d-dimer TECHNIQUE: Grayscale ultrasound images without and with compression and Doppler ultrasound images of the right lower extremity veins were obtained. Ultrasound images of the bilateral lower extremities w ere attempted. Examination is markedly limited as the patient was combative, refusing evaluation. COMPARISON: None. FINDINGS: Examination is markedly limited as the patient was combative, refusing evaluation. The visualized portions of right common femoral vein, profunda (deep) femoral vein, proximal and mid femoral vein, and greater saphenous vein outflow are patent. IMPRESSION: 1. No deep venous thrombosis within the right lower extremity from the level of the mid femoral vein centrally to the right common femoral vein, as detailed above. Reviewed, dictated and finalized at location A. ROOM KEEPER IMPRESSION: 1. No deep venous thrombosis within the right lower extremity from the level o f the mid femoral vein centrally to the right common femoral vein, as detailed above.
--- NOTE | ~2024-08-17 | XR_ITS ---
XR hand RT min 3V Ordering provider: Sonia Thurston History: . swollen, pain, bruising . Comparison: None. FINDINGS: BONES: . Osteopenia of the bones. The area of the distal radius shows longitudinal lucency which may indicate a fracture. Proper images are advised. JOINT SPACES: Narrowing of the proximal and distal interphalangeal joints. Chondrocalcinosis in the T FCC area. SOFT TISSUES: Slightly prominent soft tissues in the area of the metacarpal bones. IMPRESSION: Possible fracture in the distal radius. Clinical correlation and proper images are advised. Slight narrowing of the proximal and distal interphalangeal joints. Reviewed, dictated and finalized at location A.
--- NOTE | ~2024-08-17 | XR_ITS ---
MODIFIED ESOPHAGRAM HISTORY: Witnessed choking episode TECHNIQUE: Modified barium esophagram was performed on 08/24/2024. I administered fluoroscopy and perf ormed the exam with speech pathologist. Patient was seated for lateral fluoroscopic imaging for sebastián stion of thin liquids, pudding, solids and quantified amounts, followed by thin liquids in uncontroll ed amounts. This was recorded on tape. A single fluoroscopic spot image was also recorded. The DAP fo r this procedure was 5.243 Gycm2. The amount of fluoroscopy time used during this procedure was 2.9 m inutes. FINDINGS: Oral stage: Adequate function. Pharyngeal stage: Adequate function. Trace piriform sinus residue which appear without effect. There was transient/flash relatively shallow laryngeal penetration without aspiration. Cervical/esophageal stage: Adequate function. IMPRESSION: Minimal pharyngeal dysphagia with trace shallow laryngeal penetration without aspiration. Please correlate with speech pathologist findings and specific feeding recommendations. Reviewed, dictated and finalized at location A. IMPRESSION: Minimal pharyngeal dysphagia with trace shallow laryngeal penetrati on without aspiration. Please correlate with speech pathologist findings and s pecific feeding recommendations.
--- NOTE | ~2024-08-17 | XR_ITS ---
EXAMINATION: XR forearm RT 2V DATE: 08/24/2024 10:55 INDICATION: Right hand pain and swelling. Distal radius fracture. TECHNIQUE: 2 views of right radius were obtained. COMPARISON: Right hand radiographs 08/23/2024 FINDINGS: Alignment is normal. No fracture. There is mild elbow joint osteoarthritis. There are loose bodies in the radiocarpal compartment. There is chondrocalcinosis in the wrist. No elbow joint effus ion. IMPRESSION: 1. No fracture identified. 2. Loose bodies in the radiocarpal compartment. Reviewed, dictated and finalized at location B.
--- NOTE | ~2024-08-17 | XR_ITS ---
EXAMINATION: XR chest 1V portable Exam Date/Time: 08/22/2024 18:30 CDT HISTORY: aml Comparison: 08/17/2024, 03/25/2024. RESULT: Lines, tubes, and devices: None. Lungs and pleura: Low lung volumes. Moderate diffuse reticular opacities. Patchy subsegmental bibasil ar airspace disease. Minimal bilateral costophrenic angle blunting. Chronic minor fissure thickening. Left mid/lower lung scar. Cardiomediastinal silhouette: Stable. Other: No acute osseous or upper abdominal finding. IMPRESSION: Moderate interstitial edema. Subsegmental bibasilar atelectasis/consolidation. Possible small bilater al effusions. Reviewed, dictated and finalized at location K. IMPRESSION: Moderate interstitial edema. Subsegmental bibasilar atelectasis/consolidation. Possible small bilateral effusions.
--- NOTE | ~2024-08-17 | XR_ITS ---
XR shoulder RT min 2V DATE: 08/18/2024 14:55 INDICATION: Shoulder pain. No injury. TECHNIQUE: 4 views COMPARISON: None FINDINGS: There is osteopenia. Normal alignment at the right acromioclavicular and glenohumeral joints. No fracture, dislocation, periosteal reaction or bone destruction is detected. IMPRESSION: Osteopenia Reviewed, dictated and finalized at location A. IMPRESSION: Osteopenia
--- NOTE | ~2024-08-17 | XR_ITS ---
EXAMINATION: XR abdomen/kub 1V DATE: 09/05/2024 13:44 INDICATION: Constipation. TECHNIQUE: A supine view of the abdomen on 2 radiographs was obtained. COMPARISON: Abdomen radiographs 03/21/2024, CT 08/27/2024 FINDINGS: There are no dilated loops of bowel. There is a small volume of stool in the colon. IMPRESSION: 1. Nonobstructive bowel gas pattern. Reviewed, dictated and finalized at location A. N GRADER
--- NOTE | ~2024-08-17 | CT_ITS ---
EXAMINATION: CT brain wo con DATE: 08/20/2024 09:44 INDICATION: Confusion. TECHNIQUE: Computed tomography (CT) of the head was performed without intravenous contrast. The mA wa s adjusted according to patient size. Iterative reconstruction technique was employed. The dose-lengt h product was 605.33 mGy-cm. COMPARISON: Head CT 02/08/2024 FINDINGS: There are scattered areas of low attenuation in the cerebral white matter. There is no intr acranial hemorrhage, acute infarction, or abnormal intracranial mass lesion. The ventricles are ana l in size. There are likely changes of ocular lens replacement surgeries. There is mild mucosal thick ening in the paranasal sinuses. There are small bilateral mastoid effusions. IMPRESSION: 1. Stable moderate nonspecific cerebral white matter disease, which likely represents chronic small v essel ischemic disease. Reviewed, dictated and finalized at location B. IMPRESSION: 1. Stable moderate nonspecific cerebral white matter disease, which likely repr esents chronic small vessel ischemic disease.
--- NOTE | ~2024-08-17 | NM_ITS ---
EXAMINATION: NM bone scan whole body DATE: 09/03/2024 15:41 INDICATION: Hypercalcemia. TECHNIQUE: 19.8 mCi Tc-99m HDP was administered intravenously. Delayed whole-body scintigrams were o btained. COMPARISON: CT chest, abdomen, and pelvis 08/27/2024 FINDINGS: There are contamination overlies the pelvis. There is right-centered increased activity in the sternoclavicular joints and acromioclavicular joints, likely osteoarthritis. IMPRESSION: 1. No evidence of malignancy. Reviewed, dictated and finalized at location A. ER MACHINE
--- NOTE | ~2024-08-17 | XR_ITS ---
EXAMINATION: XR chest 1V portable DATE: 08/17/2024 13:05 INDICATION: Weakness. TECHNIQUE: A single frontal view of the chest was obtained. COMPARISON: Chest 2 views 03/25/2024 FINDINGS: There are airspace opacities in the lower lung zones. No pleural effusion or pneumothorax. The heart size is normal. There is an old healed fracture of right clavicle. IMPRESSION: 1. Airspace opacities in the lower lung zones, likely atelectasis. Reviewed, dictated and finalized at location A.
--- NOTE | ~2024-08-17 | MR_ITS ---
EXAMINATION: MR brain/brain stem wo con DATE: 08/22/2024 16:06 INDICATION: Stroke. TECHNIQUE: Magnetic resonance imaging (MRI) of the brain and brainstem was performed without intraven ous contrast. COMPARISON: Brain MRI 05/26/2022, head CT 08/20/2024 FINDINGS: There is no intracranial hemorrhage, acute infarction, or abnormal intracranial mass lesion . There are scattered areas of nonspecific increased T2-weighted signal intensity in the cerebral whi te matter and love. The ventricles are normal in size. The paranasal sinuses are clear. There are lik ashley changes of ocular lens replacement surgeries. There are bilateral mastoid effusions. IMPRESSION: 1. Moderate nonspecific cerebral white matter disease and pontine disease, which likely represents ch ronic small vessel ischemic disease, stable from 05/26/2022. Reviewed, dictated and finalized at location B. IMPRESSION: 1. Moderate nonspecific cerebral white matter disease and pontine disease, whic h likely represents chronic small vessel ischemic disease, stable from 05/26/2022 .
--- NOTE | ~2024-08-17 | NM_ITS ---
EXAMINATION: NM lung vent and perfusion DATE: 08/20/2024 12:10 INDICATION: Acute respiratory failure with hypoxia TECHNIQUE: 10.4 mCi xenon-133 by inhalation and 3.5 mCi Tc-99m MAA by intravenous route. Scintigraph ic images of the chest were obtained. COMPARISON: Chest radiograph dated 08/17/2024 FINDINGS: There is homogeneous radiotracer activity throughout the lungs on the single breath ventilation seque nce. There is relatively homogeneous perfusion throughout the left lung. No unmatched perfusion defe cts on the posterior scintigrams. There is a single small perfusion defect at the superior segment of the right lower lobe with corresponding linear opacity. Mild linear opacities in the bilateral mid l andressa zones on the prior radiographs potentially correlating with the perfusion defect on the right. IMPRESSION: 1. Low probability for pulmonary embolism. Reviewed, dictated and finalized at location A.
--- NOTE | 2024-08-17 12:14 | ECG_ITS ---
Test Date: 2024-08-17 12:27:38 Measurements Intervals [place] Rate: 66 P: 28 MO: 187 QRS: -11 QRSD: 86 T: 50 QT: 404 QTc: 423 Interpretive Statements SINUS RHYTHM NONSPECIFIC ST & T-WAVE ABNORMALITY Compared to ECG 03/25/2024 13:04:53 No significant changes Electronically Signed On 08-17-2024 15:38:31 CDT by Jimmy Brody M.D.
[2024-08-17 12:23] LABS: Glucose Point of Care 260 mg/dl (65-105)
[2024-08-17 12:54] LABS: Basophils Absolute Auto 0.1 K/mm3 (0.0-0.1); Basophils Percent Auto 0.8 % (0.2-1.2); Eosinophils Absolute Auto 0.4 K/mm3 (0-0.3); Eosinophils Percent Auto 5.1 % (0-4.4); Hematocrit 40.2 % (37.0-47.0); Hemoglobin 11.9 g/dL (12.0-15.0); Immature Granulocyte Absolute 0.03 K/mm3 (0.00-0.031); Immature Granulocyte Percent A 0.4 % (0-0.5); Lymphocytes Absolute Auto 2.36 K/mm3 (0.9-3.2); Lymphocytes Percent Auto 27.6 % (18.3-44.2); Mean Corpuscular HGB Conc 29.6 g/dl (32-36); Mean Corpuscular Hemoglobin 30.4 pg (26-34); Mean Corpuscular Volume 102.8 fl (80-100); Mean Platelet Volume 9.8 fl (7.4-10.4); Monocytes Absolute Auto 0.8 K/mm3 (0.1-0.6); Monocytes Percent Auto 9.7 % (2.6-8.5); Neutrophils Absolute Auto 4.8 K/mm3 (1.3-6.7); Neutrophils Percent Auto 56.4 % (45.5-73.1); Platelet Count Result 214 k/mm3 (150-375); Red Blood Count 3.91 M/mm3 (4.2-5.4); Red Cell Distribution Width 16.2 % (11.5-14.5); White Blood Count 8.6 K/mm3 (4.5-10.0)
[2024-08-17 12:59] LABS: Add Urine Microscopic? YES; Appearance Urine Cloudy (Clear); Bacteria Urine 4+ /hpf; Bilirubin Urine Negative (Negative); Blood Urine Negative (Negative); Color Urine Yellow (Yellow); Glucose Urine UA 2+ mg/dL (Negative); Ketones Urine Negative (Negative); Leukocyte Esterase Ur 2+ LEU/UL (Negative); Nitrate Urine Positive (Negative); Non Pathogenic Casts 0-2; Protein Urine Trace mg/dL (Negative); RBC Urine 0-2 /hpf (0-2); Specific Grav Ur 1.013 (1.001-1.035); Squamous Epithelial Cell Urine None Seen /hpf (Few); Urobilinogen Urine 0.2 mg/dL (<2.0); WBC Urine 51-100 /hpf (0-3); pH Urine 5.5 (5.0-9.0)
--- NOTE | 2024-08-17 13:08 | ED_ITS ---
HPI - General Adult General Chief complaint: Weakness Stated complaint: weakness, low blood glucose Time Seen by Provider: 08/17/24 12:34 History of Present Illness HPI narrative: Patient is a 73-year-old female who presents ER with generalized weakness. Found to have a low blood sugar of 53. She took her insulin this morning but did not eat. On arrival here her oxygen level is also low. She reports she wears oxygen when she sleeps at night but does not wear CPAP. No fevers or c hills. Chronic coarse cough. No chest pain or chest pressure. Denies any urinary symptoms or abdominal symptoms. Related Data Home Medications Medication Instructions Recorded Confirmed magnesium oxide 400 mg PO DAILY 11/15/19 08/17/24 allopurinol 300 mg tablet 300 mg PO DAILY 03/17/21 08/17/24 atorvastatin 10 mg tablet 10 mg PO HS 05/27/21 08/17/24 aspirin 81 mg capsule 81 mg PO DAILY 08/31/21 08/17/24 fluticasone furoate 100 1 inh inhalation DAILY 12/29/21 08/17/24 mcg-vilanterol 25 mcg/dose inhalation powder (Breo Ellipta) omega-3 fatty acids 1,000 mg PO DAILY 12/29/21 08/17/24 cholecalciferol (vitamin D3) 50 50 mcg PO DAILY 05/25/22 08/17/24 mcg (2,000 unit) tablet guanfacine 2 mg tablet 2 mg PO HS 07/13/22 08/17/24 lidocaine 2 %-glycerin mucosal kit 5 ml mucous membrane Q2-3H PRN 01/24/24 08/17/24 Mouth Pain pen needle, diabetic 30 gauge x 01/24/24 08/17/24 1/3 fexofenadine 180 mg tablet 180 mg PO DAILY 02/08/24 08/17/24 acetaminophen 325 mg tablet 650 mg PO BID 08/17/24 08/17/24 acetaminophen 500 mg tablet 500 mg PO Q6H PRN mild pain or 08/17/24 08/17/24 fever atogepant 10 mg tablet (Qulipta) 10 mg PO DAILY 08/17/24 08/17/24 benzonatate 100 mg capsule 100 mg PO TID PRN Cough 08/17/24 08/17/24 kkahyosvov-kcaruhwrjmiuw-ddjiqfqi 1 cap PO Q6H PRN Pain 08/17/24 08/17/24 50 mg-300 mg-40 mg capsule (Fioricet) carvedilol 25 mg tablet 25 mg PO BIDWM 08/17/24 08/17/24 furosemide 80 mg tablet See Rx Instructions .Route .COMPLEX 08/17/24 08/17/24 insulin glargine 100 unit/mL (3 45 unit subcut QAM 08/17/24 08/17/24 mL) subcutaneous pen (Basaglar KwikPen U-100 Insulin) insulin lispro 100 unit/mL 12 unit subcut QACBREAK E11.65 - 08/17/24 08/17/24 subcutaneous pen (Humalog KwikPen Type 2 diabetes mellitus with (U-100) Insulin) hyperglycem insulin lispro 100 unit/mL See Rx Instructions .Route .COMPLEX 08/17/24 08/17/24 subcutaneous pen (Humalog KwikPen (U-100) Insulin) insulin lispro 100 unit/mL See Rx Instructions .Route .COMPLEX 08/17/24 08/17/24 subcutaneous pen (Humalog KwikPen (U-100) Insulin) miconazole nitrate 2 % topical topical 08/17/24 powder (Antifungal (miconazole)) sodium chloride 0.65 % nasal spray 2 spray intranasal QID PRN nasal 08/17/24 08/17/24 aerosol (Deep Sea Nasal) congestion/dryness triamcinolone acetonide 0.1 % 1 applic dental BID PRN mouth 08/17/24 08/17/24 dental paste irritation Allergies Allergy/AdvReac Type Severity Reaction Status Date / Time No Known Allergies Allergy Verified 08/17/24 12:14 Review of Systems Review of Systems: All systems reviewed & are unremarkable except as noted in HPI and below Constitutional: Constitutional: Reports no additional constitutional complai nts ENT: Denies system reviewed and no additional complaints, except as documented Cardiovascular: Cardiovascular: Reports no additional cardiovascular complaints Respiratory: Respiratory: Reports no additional respiratory complaints Musculoskeletal: Musculoskeletal: Reports no additional musculoskeletal co mplaints [facility] Past Medical History Medical History BRADY (acute kidney injury) Anemia Aortic aneurysm Asthma Carpal tunnel syndrome on both sides Cephalgia Change in bowel habits CHF (congestive heart failure), NYHA class I Chronic kidney disease, stage 4 (severe) Chronic respiratory failure with hypoxia, on home oxygen therapy COPD (chronic obstructive pulmonary disease) Decubitus skin ulcer Deep venous thrombosis Diabetic neuropathy Diabetic polyneuropathy Dysphagia Gout Hypercalcemia Hyperkalemia Hyperlipidemia Hyperparathyroidism Hypertension Hyponatremia Hypothyroidism Neuropathy Obstructive sleep apnea on CPAP Osteoarthritis of facet joint of lumbar spine Pulmonary embolism Thoracic aortic aneurysm, without rupture Thyroid nodule Type 2 diabetes mellitus with hyperglycemia Surgical History Surgical History (Reviewed 07/03/24 @ 13:02 by Pamela Stevens [facility]) History of appendectomy History of cardiac catheterization History of cholecystectomy History of hysterectomy Family History Family History Mother Diabetes mellitus Family history of bipolar disorder Hypertension Father Family history of cardiovascular disease Cerebrovascular accident Family history of emphysema Other Family history of anemia Family history of congestive heart failure Family history of obesity Social History Social History (Reviewed 07/03/24 @ 13:02 by Pamela Stevens [facility]) Social History: Surrogate decision maker: Beverly Flores, daughter. The patient also has a son. She is . 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 She is a lifelong nonsmoker. She does not use any alcohol or illicit drugs. Code status: Full code. Smoking status: Never smoker Second hand tobacco smoke exposure: No Alcohol intake: never Substance use: never Substance use type: does not use Do You Feel Safe in your Home?: Yes Lack of Transportation: No Lack of Food: Never True Current Housing: I Have Housing Concerned About Future Housing: No Difficulty Paying Gas/Electric Bills: No Difficulty Paying for Meds: No Currently Unemployed: No Education: Associate Degree Difficulty w/ Childcare or Family Care: No Living arrangements: assisted living Additional living arrangements comments: Assisted living at [facility]. Gender identity (if verbalized by the patient): Female Spiritual care concerns: No Exam Narrative: GENERAL: Well-appearing, obese, and in no acute distress. HEAD: Normocephalic, atraumatic. EYES: PERRL and EOMI. ENT: Mucous membranes moist. CHEST: Clear to auscultation. No respiratory distress. HEART: Regular rate and rhythm. Normal peripheral pulses. ABDOMEN: Soft, nontender, nondistended. EXTREMITIES: Normal range of motion. 1+ edema. SKIN: Warm, dry, no rash. NEURO: Alert and oriented x3. PSYCH: Normal mood and affect. Course Course Emergency Course: Admit to hospitalist service. Patient requiring 2 L of nasal cannula oxygen. Urinalysis with infection. Chest x-ray borderline for pneumonia. Ceftriaxone and azithromycin ordered. Vital Signs Vital signs: Vital Signs Temperature 97.1 F L 08/17/24 12:03 Pulse Rate 70 08/17/24 12:03 Respiratory Rate 20 08/17/24 12:03 Blood Pressure 138/65 08/17/24 12:03 Pulse Oximetry 93 08/17/24 12:03 Oxygen Delivery Nasal Cannula 08/17/24 12:03 Oxygen Flow Rate 4 08/17/24 12:03 Temperature 97.7 F 08/17/24 20:39 Pulse Rate 70 08/17/24 20:39 Respiratory Rate 20 08/17/24 20:39 Blood Pressure 125/63 08/17/24 20:39 Pulse Oximetry 95 08/17/24 20:39 Oxygen Delivery Nasal Cannula 08/17/24 14:27 Oxygen Flow Rate 2 08/17/24 14:27 Medical Decision Making Vital Signs Vital Signs: Vital Signs Temperature 97.1 F L 08/17/24 12:03 Pulse Rate 70 08/17/24 12:03 Respiratory Rate 20 08/17/24 12:03 Blood Pressure 138/65 08/17/24 12:03 Pulse Oximetry 93 08/17/24 12:03 Oxygen Delivery Nasal Cannula 08/17/24 12:03 Oxygen Flow Rate 4 08/17/24 12:03 Temperature 97.7 F 08/17/24 20:39 Pulse Rate 70 08/17/24 20:39 Respiratory Rate 20 08/17/24 20:39 Blood Pressure 125/63 08/17/24 20:39 Pulse Oximetry 95 08/17/24 20:39 Oxygen Delivery Nasal Cannula 08/17/24 14:27 Oxygen Flow Rate 2 08/17/24 14:27 Lab Data 08/17/24 12:46 08/17/24 12:46 Labs: Lab Results 08/17/24 08/17/24 08/17/24 Range/Units 12:19 12:46 13:04 WBC 8.6 (4.5-10.0) K/mm3 RBC 3.91 L (4.2-5.4) M/mm3 Hgb 11.9 L (12.0-15.0) g/dL Hct 40.2 (37.0-47.0) % MCV 102.8 H (80-100) fl MCH 30.4 (26-34) pg MCHC 29.6 L (32-36) g/dl RDW 16.2 H (11.5-14.5) % Plt Count 214 (150-375) k/mm3 MPV 9.8 (7.4-10.4) fl Immature Gran % (Auto) 0.4 (0-0.5) % Neut % (Auto) 56.4 (45.5-73.1) % Lymph % (Auto) 27.6 (18.3-44.2) % [place] % (Auto) 9.7 H (2.6-8.5) % Eos % (Auto) 5.1 H (0-4.4) % Baso % (Auto) 0.8 (0.2-1.2) % Lymph # (Auto) 2.36 (0.9-3.2) K/mm3 [place] # (Auto) 0.8 H (0.1-0.6) K/mm3 Eos # (Auto) 0.4 H (0-0.3) K/mm3 Baso # (Auto) 0.1 (0.0-0.1) K/mm3 Abs Immat Gran (auto) 0.03 (0.00-0.031) K/mm3 Absolute Neuts (auto) 4.8 (1.3-6.7) K/mm3 Absolute Nucleated RBC 0.000 (0.0-0.012) K/mm3 Nucleated RBC % 0.0 (0.0-0.2) % Methemoglobin 0.3 (0-1.5) %THb Sodium 137 (137-145) mmol/L Potassium 4.5 (3.4-5.0) mmol/L Chloride 98 (98-107) mmol/L Carbon Dioxide 29 (22-30) mmol/L Anion Gap 10 (4-12) mmol/L BUN 61 H (7-17) mg/dL Creatinine 2.90 H (0.7-1.0) mg/dL Estim Creat Clear Calc 23 ml/min Estimated GFR 16 L (59 - ) Glucose 201 H (65-110) mg/dL POC Capillary Glucose 260 H (65-105) mg/dl Calcium 10.1 (8.4-10.2) mg/dL Total Bilirubin 0.4 (0.2-1.3) mg/dL AST 17 (14-36) U/L ALT 12 (6-35) U/L Alkaline Phosphatase 105 (38-126) U/L Total Protein 7.0 (6.3-8.2) g/dL Albumin 3.8 (3.5-5.1) g/dL Urine Color Yellow (Yellow) Urine Appearance Cloudy H (Clear) Urine pH 5.5 (5.0-9.0) Ur Specific [place] 1.013 (1.001-1.035) Urine Protein Trace (Negative) mg/dL Urine Glucose (UA) 2+ H (Negative) mg/dL Urine Ketones Negative (Negative) mg/dL Ur Blood (Man) Negative (Negative) Urine Nitrate Positive H (Negative) Urine Bilirubin Negative (Negative) Urine Urobilinogen 0.2 (<2.0) mg/dL Leukocyte Esterase Rfl 2+ H (Negative) ANNMARIE/UL Urine RBC 0-2 (0-2) /hpf Urine WBC 51-100 H (0-3) /hpf Ur Squamous Epith Cells None seen (Few) /hpf Urine Bacteria 4+ H /hpf Urine Casts 0-2 Influenza A (RT-PCR) Negative (Negative) Influenza B (RT-PCR) Negative (Negative) RSV (RT-PCR) Negative (Negative) SARS-CoV-2 RNA (RT-PCR) Negative (Negative) ABG Data ABG results: 08/17/24 13:04 Puncture Site Right radial ABG pH 7.366 ABG pCO2 46.2 H ABG pO2 58.7 L ABG PO2/FiO2 Ratio 2.10 ABG HCO3 25.9 ABG O2 Saturation 89.5 L ABG O2 Content 15.5 L ABG Base Excess 0.2 A-a Gradient 86.4 Oxyhemoglobin 88.6 L Carboxyhemoglobin 1.4 Reduced Hemoglobin 9.7 H Total Hemoglobin 12.4 O2 Delivery Device Nasal cannula O2 Liters/Min 2.0 FiO2 28 Imaging Data Radiologist's impression: ITS Impressions Chest X-Ray 08/17/24 13:11 IMPRESSION: 1. Airspace opacities in the lower lung zones, likely atelectasis. Discharge Plan Discharge Clinical Impression: Acute UTI, Pneumonia Patient Disposition: Still a Patient Condition: Stable
[2024-08-17 13:09] LABS: Alanine Aminotransferase 12 U/L (6-35); Albumin Level 3.8 g/dL (3.5-5.1); Alkaline Phosphatase 105 U/L (38-126); Anion Gap 10 mmol/L (4-12); Aspartate Amino Transferase 17 U/L (14-36); Bilirubin,Total 0.4 mg/dL (0.2-1.3); Blood Urea Nitrogen 61 mg/dL (7-17); Calcium 10.1 mg/dL (8.4-10.2); Carbon Dioxide 29 mmol/L (22-30); Chloride 98 mmol/L (98-107); Estimated CRCL calculation 23 ml/min; Estimated Glomerular Filt Rate 16; Glucose 201 mg/dL (65-110); Potassium 4.5 mmol/L (3.4-5.0); Sodium 137 mmol/L (137-145)
[2024-08-17 13:11] LABS: Alveolar/Arterial O2 Gradient 86.4 mmHg; Base Excess ABG 0.2 mEq/l (+/-2.0); Carboxyhemoglobin 1.4 % THb (0-2.0); Device NASAL CANNULA; Fractional Inspired Oxygen 28 %; HCO3 ABG 25.9 mEq/l (22.0-26.0); Methemoglobin ABG 0.3 %THb (0-1.5); Modified Allen's Test Pass; Oxygen Content ABG 15.5 %vol (16.0-22.0); Oxygen Saturation ABG 89.5 % (95.0-100.0); Oxyhemoglobin 88.6 % THb (90.0-100.0); PCO2 ABG 46.2 mmHg (35.0-45.0); PO2 ABG 58.7 mmHg (80.0-100.0); Reduced Hemoglobin 9.7 %THb (0-5.0); Site Drawn RIGHT RADIAL; Total Hemoglobin 12.4 g/dL (12.0-18.0); pH ABG 7.366 (7.350-7.450)
[2024-08-17 13:32] LABS: Influenza A QL RT-PCR Negative (Negative); Influenza B QL RT-PCR Negative (Negative); RSV RNA, RT-PCR Negative (Negative); SARS-CoV-2 RNA PCR Negative (Negative)
--- NOTE | 2024-08-17 16:59 | P.HP_ITS ---
H&P: HPI History of Present Illness Date/Time: 08/17/24 16:59 Chief Complaint: weakness, low blood glucose Narrative: This is a 74-year-old female with a significant past medical history of who presented to the ER with generalized weakness and low blood sugar reading of 53. Patient states that she took her insulin that morning but did not eat anything. Patient reports the following history of presenting illness. Patient states that she has been feeling weak and tired along with a cough and congestion for about a month. She states that the other days she slapped pretty much all day which is unusual for her. She reports only taking gulk-etm-[id number] Vicks for her cough and congestion. She states that her cough is dry and that she does not cough anything up. She denies any recent sick contacts. She is a resident over at [facility] and had a negative COVID test earlier in the week. She also reports dysuria and urinary frequency and had concerns for urinary tract infection. Patient denies any fever, nausea, vomiting, diarrhea, abdominal pain, chest pain, shortness a breath. On arrival to the emergency room the patient's oxygen saturation was low. Workup in the hospital included a chest x- ray which showed airspace opacities in the lower lung zones likely atelectasis. Initial labs revealed a hemoglobin of 11.9, white blood cell count was normal at 8.6, creatinine 2.90, EGFR 16, blood glucose ranging 201-260. A UA was obtained which showed cloudy urine appearance, 2+ urine glucose, positive nitrate, 2+ leukocytes, 51-100 urine WBC, 4+ bacteria. Respiratory panel was negative for influenza a and B, RSV, COVID. Blood and urine cultures were obtained and pending. EKG showed sinus rhythm with a rate of 66, QTC 423, D- dimer 0.79. Patient was given a DuoNeb, Rocephin, azithromycin while in the ED. Review of Systems Review of Systems: All systems reviewed & are unremarkable except as noted in HPI and below Constitutional: Constitutional: Reports as per HPI and Reports no additional constitutional complaints Eyes: Eyes: Reports as per HPI and Reports no additional eye complaints ENT: Reports system reviewed and no additional complaints, except as docu mented and Reports as per HPI Cardiovascular: Cardiovascular: Reports as per HPI and Reports no additional cardiovascular complaints Respiratory: Respiratory: Reports as per HPI and Reports no additional respiratory complaints Gastrointestinal: Gastrointestinal: Reports as per HPI and Reports no additional gastrointestinal complaints Genitourinary: Genitourinary: Reports no additional female genitourinary complaints and Reports as per HPI Musculoskeletal: Musculoskeletal: Reports no additional musculoskeletal complaints and Reports as per HPI Integumentary/Breasts: Skin/Breast: Reports system reviewed and no additional complaints, except as docu and Reports as per HPI Neurologic: Reports system reviewed and no additional complaints, except as documented and Reports as per HPI Psychiatric: Psychiatric: Reports no additional psychiatric complaints and Reports as per HPI [facility] Past Medical History Medical History (Updated 08/17/24 @ 22:47 by Evelyn Muir APRN) BRADY (acute kidney injury) Anemia Aortic aneurysm Asthma Carpal tunnel syndrome on both sides Cephalgia Change in bowel habits CHF (congestive heart failure), NYHA class I Chronic kidney disease, stage 4 (severe) Chronic respiratory failure with hypoxia, on home oxygen therapy COPD (chronic obstructive pulmonary disease) Decubitus skin ulcer Deep venous thrombosis Diabetic neuropathy Diabetic polyneuropathy Dysphagia Gout Hypercalcemia Hyperkalemia Hyperlipidemia Hyperparathyroidism Hypertension Hyponatremia Hypothyroidism Neuropathy Obstructive sleep apnea on CPAP Osteoarthritis of facet joint of lumbar spine Pulmonary embolism Thoracic aortic aneurysm, without rupture Thyroid nodule Type 2 diabetes mellitus with hyperglycemia Surgical History Surgical History (Updated 08/17/24 @ 22:47 by Evelyn Muir APRN) History of appendectomy History of cardiac catheterization History of cholecystectomy History of hysterectomy Hx of cataract removal with insertion of prosthetic lens Family History Family History Mother Diabetes mellitus Family history of bipolar disorder Hypertension Father Family history of cardiovascular disease Cerebrovascular accident Family history of emphysema Other Family history of anemia Family history of congestive heart failure Family history of obesity Social History Social History Social History: Surrogate decision maker: Beverly Flores, daughter. The patient also has a son. She is . 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 She is a lifelong nonsmoker. She does not use any alcohol or illicit drugs. Code status: Full code. Smoking status: Never smoker Second hand tobacco smoke exposure: No Alcohol intake: current Drinks per week: 1 Substance use: never Substance use type: does not use Do You Feel Safe in your Home?: Yes Lack of Transportation: No Lack of Food: Never True Current Housing: I Have Housing Concerned About Future Housing: No Difficulty Paying Gas/Electric Bills: No Difficulty Paying for Meds: No Currently Unemployed: No Education: Decline to Answer Difficulty w/ Childcare or Family Care: No Living arrangements: assisted living Additional living arrangements comments: Assisted living at [facility]. Gender identity (if verbalized by the patient): Female Spiritual care concerns: No Meds Home Medications and Allergies Home Medications Medication Instructions Recorded Confirmed Type magnesium oxide 400 mg PO DAILY 11/15/19 08/17/24 History allopurinol 300 mg tablet 300 mg PO DAILY 03/17/21 08/17/24 History atorvastatin 10 mg tablet 10 mg PO HS 05/27/21 08/17/24 History aspirin 81 mg capsule 81 mg PO DAILY 08/31/21 08/17/24 History fluticasone furoate 100 1 inh inhalation DAILY 12/29/21 08/17/24 History mcg-vilanterol 25 mcg/dose inhalation powder (Breo Ellipta) omega-3 fatty acids 1,000 mg PO DAILY 12/29/21 08/17/24 History escitalopram oxalate 20 mg tablet 20 mg PO DAILY #90 tabs 01/21/22 08/17/24 Rx (Lexapro) cholecalciferol (vitamin D3) 50 50 mcg PO DAILY 05/25/22 08/17/24 History mcg (2,000 unit) tablet guanfacine 2 mg tablet 2 mg PO HS 07/13/22 08/17/24 History pantoprazole 40 mg tablet,delayed 40 mg PO QAM 1 month #30 tabs 11/16/22 08/17/24 Rx release mupirocin 2 % topical ointment 1 applic topical BID #22 grams 03/16/23 08/17/24 Rx flash glucose sensor (FreeStyle #6 ea 06/29/23 08/17/24 Rx Jeffrey 2 Sensor kit) levothyroxine 50 mcg tablet 50 mcg PO DAILY #90 tabs 06/29/23 08/17/24 Rx cetirizine 10 mg tablet 10 mg PO DAILY PRN allergy 07/04/23 08/17/24 Rx symptoms #90 tabs dapagliflozin propanediol 10 mg 10 mg PO DAILY #90 tabs 01/05/24 08/17/24 Rx tablet (Farxiga) miconazole nitrate 2 % topical 1 applic topical BID #85 grams 01/10/24 08/17/24 Rx powder (Miconazorb AF) fluticasone propionate 50 2 spray intranasal DAILY #16 grams 01/17/24 08/17/24 Rx mcg/actuation nasal spray,suspension lidocaine 2 %-glycerin mucosal kit 5 ml mucous membrane Q2-3H PRN 01/24/24 08/17/24 History Mouth Pain pen needle, diabetic 30 gauge x 01/24/24 08/17/24 History 1/3 fexofenadine 180 mg tablet 180 mg PO DAILY 02/08/24 08/17/24 History pen needle, diabetic, safety 30 #100 ea 03/13/24 08/17/24 Rx gauge x 10/26 (Novofine Autocover) amitriptyline 10 mg tablet 10 mg PO QHS 1 month #30 tabs 03/21/24 08/17/24 Rx albuterol sulfate 90 mcg/actuation 2 puff inhalation Q4H PRN 03/28/24 08/17/24 Rx aerosol inhaler (Ventolin HFA) shortness of breath or wheezing #8.5 grams albuterol sulfate 2.5 mg/0.5 mL 2.5 mg (0.5 mL) inhalation Q20M 05/09/24 08/17/24 Rx solution for nebulization PRN shortness of breath or wheezing #30 ea gabapentin 300 mg capsule 300 mg PO QHS #90 caps 05/09/24 08/17/24 Rx acetaminophen 325 mg tablet 650 mg PO BID 08/17/24 08/17/24 History acetaminophen 500 mg tablet 500 mg PO Q6H PRN mild pain or 08/17/24 08/17/24 History fever atogepant 10 mg tablet (Qulipta) 10 mg PO DAILY 08/17/24 08/17/24 History benzonatate 100 mg capsule 100 mg PO TID PRN Cough 08/17/24 08/17/24 History jphlxwuvdu-nyrixocrwvddk-goroohhi 1 cap PO Q6H PRN Pain 08/17/24 08/17/24 History 50 mg-300 mg-40 mg capsule (Fioricet) carvedilol 25 mg tablet 25 mg PO BIDWM 08/17/24 08/17/24 History furosemide 80 mg tablet See Rx Instructions .Route .COMPLEX 08/17/24 08/17/24 History insulin glargine 100 unit/mL (3 45 unit subcut QAM 08/17/24 08/17/24 History mL) subcutaneous pen (Basaglar KwikPen U-100 Insulin) insulin lispro 100 unit/mL 12 unit subcut QACBREAK E11.65 - 08/17/24 08/17/24 History subcutaneous pen (Humalog KwikPen Type 2 diabetes mellitus with (U-100) Insulin) hyperglycem insulin lispro 100 unit/mL See Rx Instructions .Route .COMPLEX 08/17/24 08/17/24 History subcutaneous pen (Humalog KwikPen (U-100) Insulin) insulin lispro 100 unit/mL See Rx Instructions .Route .COMPLEX 08/17/24 08/17/24 History subcutaneous pen (Humalog KwikPen (U-100) Insulin) miconazole nitrate 2 % topical topical 08/17/24 History powder (Antifungal (miconazole)) sodium chloride 0.65 % nasal spray 2 spray intranasal QID PRN nasal 08/17/24 08/17/24 History aerosol (Deep Sea Nasal) congestion/dryness triamcinolone acetonide 0.1 % 1 applic dental BID PRN mouth 08/17/24 08/17/24 History dental paste irritation Allergies Allergy/AdvReac Type Severity Reaction Status Date / Time No Known Allergies Allergy Verified 08/17/24 22:00 Vital Signs Vital Signs - 24 hr 08/17/24 12:03 08/17/24 14:25 08/17/24 14:27 Temperature 97.1 F L Pulse Rate 70 Respiratory Rate 20 Blood Pressure 138/65 Pulse Oximetry 93 87 L 93 Oxygen Delivery Nasal Cannula Room Air Nasal Cannula Oxygen Flow Rate 4 2 08/17/24 12:43 08/17/24 13:01 08/17/24 13:31 Temperature 97.6 F 97.6 F Pulse Rate 67 65 64 Respiratory Rate 18 17 17 Blood Pressure 109/58 L 116/66 114/70 Pulse Oximetry 92 92 92 Oxygen Delivery Oxygen Flow Rate 08/17/24 14:01 08/17/24 14:31 08/17/24 15:01 Temperature 97.8 F 97.6 F Pulse Rate 72 63 65 Respiratory Rate 20 22 H 19 Blood Pressure 113/71 124/62 137/74 Pulse Oximetry 94 91 92 Oxygen Delivery Oxygen Flow Rate 08/17/24 16:00 Temperature 97.7 F Pulse Rate 64 Respiratory Rate 18 Blood Pressure 136/72 Pulse Oximetry 92 Oxygen Delivery Oxygen Flow Rate Exam Narrative: General: Week appearance, well nourished Head: atraumatic, no encephalopathy Eyes: PERRLA, sclera clear ENT: moist mucous membranes, nasal passages clear Neck: supple, no JVD, no adenopathy, trachea midline Cardiac: Normal S1 and S2. No murmur, gallops or friction rubs, peripheral pulses intact. Respiratory: Lungs clear in the upper lobes, diminished in the bases, currently on room air, no adventitious lung sounds noted Gastrointestinal: soft, non-distended, non-tender, normoactive bowel sounds. : voiding without difficulty via purewick, clear and yellow. Reports dysuria and urinary frequency Extremities: moves all extremities fair, 1 to 2+ pitting edema to bilateral lower extremity Skin: clean, dry, intact. No wounds or lesions. Neuro: Alert and oriented x4, cranial nerves intact, no neuro deficits. Psych: normal mood, normal affect, interactive H&P: Results Labs Labs: Short CBC 08/17/24 Range/Units 12:46 WBC 8.6 (4.5-10.0) K/mm3 Hgb 11.9 L (12.0-15.0) g/dL Hct 40.2 (37.0-47.0) % Plt Count 214 (150-375) k/mm3 BMP 08/17/24 12:46 Sodium 137 Potassium 4.5 Chloride 98 Carbon Dioxide 29 BUN 61 H Creatinine 2.90 H Glucose 201 H Calcium 10.1 Liver Function 08/17/24 Range/Units 12:46 Total Bilirubin 0.4 (0.2-1.3) mg/dL AST 17 (14-36) U/L ALT 12 (6-35) U/L Alkaline Phosphatase 105 (38-126) U/L Albumin 3.8 (3.5-5.1) g/dL Urine 08/17/24 Range/Units 12:46 Urine Color Yellow (Yellow) Urine Appearance Cloudy H (Clear) Urine pH 5.5 (5.0-9.0) Ur Specific [place] 1.013 (1.001-1.035) Urine Protein Trace (Negative) mg/dL Urine Glucose (UA) 2+ H (Negative) mg/dL Imaging Chest x-ray: Radiologist's impression: EXAMINATION: XR chest 1V portable DATE: 08/17/2024 13:05 INDICATION: Weakness. TECHNIQUE: A single frontal view of the chest was obtained. COMPARISON: Chest 2 views 03/25/2024 FINDINGS: There are airspace opacities in the lower lung zones. No pleural effusion or pneumothorax. The heart size is normal. There is an old healed fracture of right clavicle. IMPRESSION: 1. Airspace opacities in the lower lung zones, likely atelectasis. Reviewed, dictated and finalized at location A. Assessment and Plan Assessment and plan (1) Acute respiratory failure with hypoxia: Code(s): J96.01 - Acute respiratory failure with hypoxia Status: Acute Assessment and Plan: * patient is not on any baseline oxygen during the day however is requiring 2-4 L nasal cannula now due to hypoxia in the ER with oxygen saturation of 87% on room air. 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 However she does not take any chronic anticoagulation * will also check troponin * EKG showing sinus rhythm with a rate of 66, QTC 423 (2) CHF (congestive heart failure), NYHA class I: Qualifiers: Congestive heart failure type: unspecified Qualified Code(s): I50.9 - Heart failure, unspecified Code(s): I50.9 - Heart failure, unspecified Status: Acute Assessment and Plan: * echocardiogram from 12/30/2021 showed normal LV systolic function with an estimated EF of 65-70%, grade 1 diastolic dysfunction. * Chest x-ray reporting airspace opacities in the lower lung zones likely atelectasis. After reviewing the chest x-ray myself and comparing it to a previous chest x-ray patient does appear to have pulmonary edema * proBNP ordered * a one time dose of 40 mg of IV Lasix ordered-- Will hold off on further diuresis considering renal function * consider nephrology consult if requiring further diuresis * will obtain another echocardiogram in the morning * continuous telemetry monitoring ordered (3) UTI (urinary tract infection): Qualifiers: Hematuria presence: without hematuria Urinary tract infection type: site unspecified Qualified Code(s): N39.0 - Urinary tract infection, site not specified Code(s): N39.0 - Urinary tract infection, site not specified Status: Acute Assessment and Plan: * UA revealed cloudy urine appearance, 2+ urine glucose, positive nitrate, 2+ leukocyte, 51-100 urine WBC, 4+ urine bacteria. * Urine and blood culture was obtained and pending * patient was started on Rocephin * urine culture from 06/23/2023 revealed E coli which was essentially pansensitive except for Bactrim (4) Chronic kidney disease, stage IV (severe): Code(s): N18.4 - Chronic kidney disease, stage 4 (severe) Status: Chronic Assessment and Plan: * creatinine 2.9, EGFR 16 * baseline creatinine 2.10-2.60, baseline EGFR 18-23 * continue to trend * avoid nephrotoxic medications or testing with IV contrast (5) Hyperlipidemia: Qualifiers: Hyperlipidemia type: other hyperlipidemia Qualified Code(s): E78.49 - Other hyperlipidemia Code(s): E78.5 - Hyperlipidemia, unspecified Status: Chronic Assessment and Plan: * continue atorvastatin and aspirin (6) Type 2 diabetes mellitus: Qualifiers: Chronic kidney disease stage: stage 3 (moderate) Chronic kidney disease stage 3 subtype: stage 3b (GFR 30-44) Diabetes mellitus complication detail: with chronic kidney disease Diabetes mellitus complication status: with kidney complications 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 Qualified Code(s): E11.22 - Type 2 diabetes mellitus with diabetic chronic kidney disease; N18.32 - Chronic kidney disease, stage 3b; 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 Code(s): E11.9 - Type 2 diabetes mellitus without complications Status: Chronic Assessment and Plan: * Blood sugars ranging 201-260 * Hgb A1C 8.4 on 05/26/2022 * repeat hemoglobin A1c ordered * Accu checks AC/HS * high-dose SSI ordered * hypoglycemic protocol in place * Diabetic diet ordered * hold Farxiga and mealtime replacement insulin * hold Lantus for now considering reported blood sugar a 53, will reassess in the morning (7) Obstructive sleep apnea on CPAP: Code(s): G47.33 - Obstructive sleep apnea (adult) (pediatric); Z99.89 - Dependence on other enabling machines and devices Status: Chronic Assessment and Plan: * patient does not wear CPAP only wears 2L of oxygen at night only (8) Hypertension: Code(s): I10 - Essential (primary) hypertension Status: Chronic Assessment and Plan: * blood pressure ranging 114/72-136/72 * continue carvedilol (9) Hypothyroidism: Qualifiers: Hypothyroidism type: acquired Qualified Code(s): E03.9 - Hypothyroidism, unspecified Code(s): E03.9 - Hypothyroidism, unspecified Status: Chronic Assessment and Plan: * continue Synthroid * TSH ordered (10) Elevated d-dimer: Code(s): R79.89 - Other specified abnormal findings of blood chemistry Status: Acute Assessment and Plan: * D-dimer 0.79 * Will get V/Q scan to rule out PE considering her history of DVT and PE in the past and is not currently on any anticoagulation Quality VTE Prophylaxis VTE prophylaxis: pharmacologic ordered Hospitalist MIPS Advance Care Plan I have confirmed that the patient's Advanced Care Plan is present, code status is documented, or surrogate decision maker is listed in patient medical record.: Yes Medication Reconciliation I have utilized all available resources to obtain, update and review the patients current medications (includes all prescriptions, OTC, herbals, cannabis, and nutritional supplements).: Yes
[2024-08-17] MEDS: AZITHROMYCIN 500 MG/NS 250 ML 500 MG/250 ML BAG 250 MG IVPB (18:11)
[2024-08-17] MEDS: FUROSEMIDE INJ 40 MG/4 ML VIAL IV PUSH (18:11)
[2024-08-17 18:20] LABS: D Dimer 0.79 ug/mL (<0.48)
[2024-08-17 18:39] LABS: NT Pro B Type Natriuretic Pept 483 pg/mL (19.9-100); Troponin I < 0.012 ng/mL (0.000-0.034)
--- NOTE | 2024-08-17 18:40 | ADMGEN ---
This patient, Beto Bryan, was admitted to Medical Room 341-01. Patient/family oriented to hospital policies and general routines including ID bracelet, bed and alarms, visiting hours, pain management, procedures, bathroom and other care routines, personal items, smoking policy, room service/diet, and visiting hours. Information on how to activate the Rapid Response Team has been discussed. Patient/Family are encouraged to report perceived risks to care and to ask questions if they do not understand what they are told or what they should do.
[2024-08-17 18:45] LABS: Hemoglobin A1C 9.5 % (<5.7)
[2024-08-17 19:31] LABS: Glucose Point of Care 144 mg/dl (65-105)
[2024-08-17 20:42] LABS: MRSA (PCR) NOT DETECTED (NOT DETECTE)
[2024-08-17] MEDS: IPRATROPIUM 0.5 MG/ALBUTEROL SULFATE 2.5 MG AMPUL.NEB 3 ML INHALATION (21:24)
[2024-08-17] MEDS: GABAPENTIN 300 MG CAPSULE PO (21:40)
[2024-08-17] MEDS: ATORVASTATIN 10 MG TABLET PO (21:40)
[2024-08-17] MEDS: AMITRIPTYLINE HCL 10 MG TABLET PO (21:40)
[2024-08-18] VITALS (19 sets, daily range): BP systolic 121–149; BP diastolic 58–69; PULSE 66–84; RESP 18–20; TEMP 36.4–36.8; O2SAT 89–94
--- NOTE | 2024-08-18 | ECHO_ITS ---
Patient Info Name: Beto Bryan Age: 73 years : 1950 Gender: Female Ht: 65 in Wt: 302 lbs BSA: 2.59 m2 HR: 70 bpm BP: 129 / 57 mmHg Heart Rhythm: Sinus Rhythm Technical Quality: Good Exam Date: 08/18/2024 8:03 AM Exam Location: Echo Lab Patient Status: Inpatient Admit Date: 08/17/2024 Staff Ordering Physician: Evelyn Muir APRN Corsage Maker: Abdoulaye Lemus RDCS Attending Provider: Nnamdi Bell MD Referring Physician: Wood MONTENEGRO; Exam Type: CA echo doppler color flow Study Info Indications - chf Complete two-dimensional, color flow and Doppler transthoracic echocardiogram is performed. Summary 1. Complete two-dimensional, color flow and Doppler transthoracic echocardiogram is performed. 2. Left ventricular chamber dimension is normal. 3. Left ventricular systolic function is normal, estimated at 65-70%. 4. There is moderately increased left ventricular wall thickness. 5. The left ventricular diastolic function is grade I diastolic dysfunction. 6. Left atrial chamber dimension is mildly enlarged. 7. There is mild aortic valve regurgitation. 8. There is mild tricuspid valve regurgitation. 9. There is mild pulmonic regurgitation. Left Ventricle Left ventricular chamber dimension is normal. Left ventricular systolic function is normal, estimated at 65-70%. There is moderately increased left ventricular wall thickness. The left ventricular diastolic function is grade I diastolic dysfunction. Right Ventricle Right ventricular chamber dimension is normal. Right ventricular systolic function is normal. Left Atria Left atrial chamber dimension is mildly enlarged. Right Atria Right atrial chamber dimension is normal. Aortic Valve The aortic valve is trileaflet. There is mild aortic valve sclerosis. There is no aortic valve stenosis. There is mild aortic valve regurgitation. Pulmonic Valve The pulmonic valve is normal. There is no pulmonic valve stenosis. There is mild pulmonic regurgitation. Mitral Valve The mitral valve has calcified annulus. There is no mitral valve stenosis. There is trace mitral valve regurgitation. Tricuspid Valve The tricuspid valve leaflets are normal. There is no significant tricuspid valve stenosis. There is mild tricuspid valve regurgitation. No pulmonary hypertension, estimated pulmonary arterial systolic pressure is 28 mmHg. Pericardium/Pleural The pericardium appears normal. There is no pericardial effusion. Inferior Vena Cava Normal inferior vena cava with >50% collapse upon inspiration consistent with normal right atrial pressure, 10 mmHg. Aorta The aortic root size at the sinus of Valsalva is normal. Left Ventricular Outflow Tract Name Value Normal LVOT 2D LVOT Diameter 2.2 cm LVOT Doppler LVOT Peak Gradient 4 mmHg LVOT Mean Gradient 3 mmHg LVOT VTI 25 cm LVOT VTI/AV VTI Ratio 1.1 LVOT Stroke Volume 98 ml LVOT CO 6.5 l/min LVOT CI 2.5 l/min/m2 Pulmonic Valve Name Value Normal PV Regurgitation Doppler GA Peak End Diastolic Velocity 87 cm/s Mitral Valve Name Value Normal MV Doppler MV Decel Jennings 234 cm/s2 MV PHT 54 ms MV Area (PHT) 4.1 cm2 4.0-5.0 MV Diastolic Function MV E Peak Velocity 43 cm/s MV A Peak Velocity 67 cm/s MV E/A 0.6 MV Decel Time 185 ms MV Annular TDI MV E/e' (Septal) 8.3 <=8.0 MV E/e' (Lateral) 6.7 <=8.0 MV E/e' (Average) 7.5 Tricuspid Valve Name Value Normal TV Regurgitation Doppler TR Peak Velocity 209 cm/s TR Peak Gradient 18 mmHg Estimated PAP/RSVP RA Pressure 10 mmHg <=5 PA Systolic Pressure 28 mmHg <36 RV Systolic Pressure 28 mmHg <36 Aortic Valve Name Value Normal AV Doppler AV Peak Velocity 123 cm/s AV Peak Gradient 6 mmHg AV Mean Gradient 3 mmHg AV VTI 23 cm AV Area (Cont Eq VTI) 4.3 cm2 >=3.0 AV Area (Cont Eq Senthil) 3.4 cm2 AV Regurgitation 2D LVOT Area 3.9 cm2 Ventricles Name Value Normal LV Dimensions 2D/MM IVS Diastolic Thickness (2D) 1.3 cm 0.6-1.0 LVID Diastole (2D) 4.8 cm 3.8-5.2 LVIW Diastolic Thickness (2D) 1.3 cm 0.6-0.9 LVID Systole (2D) 3.2 cm 2.2-3.5 LVOT Diameter 2.2 cm LV Mass (2D Cubed) 243.58 g 67.00-162.00 LV Mass Index (2D Cubed) 94 g/m2 43-95 Relative Wall Thickness (2D) 0.53 LV Fractional Shortening/Ejection Fraction 2D/MM LV Fractional Shortening (2D) 34 % 27-45 LV EF (2D Teicholz) 62 % 54-74 LV Diastolic Volume (4C MOD) 109 ml LV EF (4C MOD) 63 % LV Diastolic Volume (2C MOD) 81 ml LV EF (2C MOD) 66 % LV Diastolic Volume (BP MOD) 95 ml 46-106 LV Diastolic Volume Index (BP MOD) 37 ml/m2 29-61 LV Systolic Volume (BP MOD) 34 ml 14-42 LV Systolic Volume Index (BP MOD) 13 ml/m2 8-24 LV EF (BP MOD) 65 % 54-74 LV Diastolic Length (4C) 8.3 cm LV Systolic Length (4C) 6.9 cm LV Stroke Volume (4C MOD) 68 ml Atria Name Value Normal LA Dimensions LA Volume (4C A-L) 26 ml LA Volume (BP A-L) 28 ml RA Dimensions RA Area (4C) 8.7 cm2 <=18.0 Report Signatures
[2024-08-18] MEDS: IPRATROPIUM 0.5 MG/ALBUTEROL SULFATE 2.5 MG AMPUL.NEB 3 ML INHALATION ×4 (01:58→20:04)
[2024-08-18 05:43] LABS: Basophils Absolute Auto 0.1 K/mm3 (0.0-0.1); Basophils Percent Auto 0.8 % (0.2-1.2); Eosinophils Absolute Auto 0.4 K/mm3 (0-0.3); Eosinophils Percent Auto 5.3 % (0-4.4); Hematocrit 39.3 % (37.0-47.0); Hemoglobin 11.6 g/dL (12.0-15.0); Immature Granulocyte Absolute 0.02 K/mm3 (0.00-0.031); Immature Granulocyte Percent A 0.3 % (0-0.5); Lymphocytes Absolute Auto 2.14 K/mm3 (0.9-3.2); Lymphocytes Percent Auto 27.1 % (18.3-44.2); Mean Corpuscular HGB Conc 29.5 g/dl (32-36); Mean Corpuscular Hemoglobin 29.6 pg (26-34); Mean Corpuscular Volume 100.3 fl (80-100); Mean Platelet Volume 9.7 fl (7.4-10.4); Monocytes Absolute Auto 0.7 K/mm3 (0.1-0.6); Monocytes Percent Auto 9.2 % (2.6-8.5); Neutrophils Absolute Auto 4.5 K/mm3 (1.3-6.7); Neutrophils Percent Auto 57.3 % (45.5-73.1); Platelet Count Result 225 k/mm3 (150-375); Red Blood Count 3.92 M/mm3 (4.2-5.4); Red Cell Distribution Width 16.1 % (11.5-14.5); White Blood Count 7.9 K/mm3 (4.5-10.0)
[2024-08-18] MEDS: LEVOTHYROXINE SODIUM 50 MCG TABLET PO (05:49)
[2024-08-18 05:50] LABS: Alanine Aminotransferase 11 U/L (6-35); Albumin Level 3.6 g/dL (3.5-5.1); Alkaline Phosphatase 109 U/L (38-126); Anion Gap 6 mmol/L (4-12); Aspartate Amino Transferase 17 U/L (14-36); Bilirubin,Total 0.4 mg/dL (0.2-1.3); Blood Urea Nitrogen 57 mg/dL (7-17); Calcium 10.2 mg/dL (8.4-10.2); Carbon Dioxide 33 mmol/L (22-30); Chloride 100 mmol/L (98-107); Estimated CRCL calculation 23 ml/min; Estimated Glomerular Filt Rate 17; Glucose 179 mg/dL (65-110); Potassium 3.9 mmol/L (3.4-5.0); Sodium 139 mmol/L (137-145)
[2024-08-18 06:17] LABS: Procalcitonin 0.1 ng/mL
[2024-08-18 08:47] LABS: Glucose Point of Care 196 mg/dl (65-105)
[2024-08-18] MEDS: CHOLECALCIFEROL 1,000 UNITS TABLET 2000 UNITS PO (08:57)
[2024-08-18] MEDS: allopurinoL 300 MG TABLET PO (08:58)
[2024-08-18] MEDS: PANTOPRAZOLE 40 MG TABLET PO (08:58)
[2024-08-18] MEDS: carvediloL 25 MG TABLET PO ×2 (08:59→21:36)
--- NOTE | 2024-08-18 08:59 | P.PNIM_ITS ---
Progress Note: A&P Assessment and Plan (1) Acute respiratory failure with hypoxia: Code(s): J96.01 - Acute respiratory failure with hypoxia Status: Acute Assessment and Plan: * patient is not on any baseline oxygen during the day however is requiring 2-4 L nasal cannula now due to hypoxia in the ER with oxygen saturation of 87% on room air. 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 However she does not take any chronic anticoagulation * will also check troponin * EKG showing sinus rhythm with a rate of 66, QTC 423 08/18- V/Q scan ordered unable to do V/Q scan over the weekend. Cr is still high, cr cl too low/gfr low- risk for worsening of kidney functions- discussed with pt. -WELL's criteria for PE- 1.5%- low suspicion for PE- so will observe for now and hold off on scans (2) CHF (congestive heart failure), NYHA class I: Qualifiers: Congestive heart failure type: unspecified Qualified Code(s): I50.9 - Heart failure, unspecified Code(s): I50.9 - Heart failure, unspecified Status: Acute Assessment and Plan: * echocardiogram from 12/30/2021 showed normal LV systolic function with an estimated EF of 65-70%, grade 1 diastolic dysfunction. * Chest x-ray reporting airspace opacities in the lower lung zones likely atelectasis. After reviewing the chest x-ray myself and comparing it to a previous chest x-ray patient does appear to have pulmonary edema * proBNP ordered * a one time dose of 40 mg of IV Lasix ordered-- Will hold off on further diuresis considering renal function * consider nephrology consult if requiring further diuresis * will obtain another echocardiogram in the morning * continuous telemetry monitoring ordered (3) UTI (urinary tract infection): Qualifiers: Hematuria presence: without hematuria Urinary tract infection type: site unspecified Qualified Code(s): N39.0 - Urinary tract infection, site not specified Code(s): N39.0 - Urinary tract infection, site not specified Status: Acute Assessment and Plan: * UA revealed cloudy urine appearance, 2+ urine glucose, positive nitrate, 2+ leukocyte, 51-100 urine WBC, 4+ urine bacteria. * Urine and blood culture was obtained and pending * patient was started on Rocephin * urine culture from 06/23/2023 revealed E coli which was essentially pansensitive except for Bactrim (4) Chronic kidney disease, stage IV (severe): Code(s): N18.4 - Chronic kidney disease, stage 4 (severe) Status: Chronic Assessment and Plan: * creatinine 2.9, EGFR 16 * baseline creatinine 2.10-2.60, baseline EGFR 18-23 * continue to trend * avoid nephrotoxic medications or testing with IV contrast * - nephrology consulted (5) Hyperlipidemia: Qualifiers: Hyperlipidemia type: other hyperlipidemia Qualified Code(s): E78.49 - Other hyperlipidemia Code(s): E78.5 - Hyperlipidemia, unspecified Status: Chronic Assessment and Plan: * continue atorvastatin and aspirin (6) Type 2 diabetes mellitus: Qualifiers: Chronic kidney disease stage: stage 3 (moderate) Chronic kidney disease stage 3 subtype: stage 3b (GFR 30-44) Diabetes mellitus complication detail: with chronic kidney disease Diabetes mellitus complication status: with kidney complications Diabetes mellitus long term acute care registered nurse insulin use: with long term acute care registered nurse use Qualified Code(s): E11.22 - Type 2 diabetes mellitus with diabetic chronic kidney disease; N18.32 - Chronic kidney disease, stage 3b; Z79.4 - senior living (current) use of insulin Code(s): E11.9 - Type 2 diabetes mellitus without complications Status: Chronic Assessment and Plan: * Blood sugars ranging 201-260 * Hgb A1C 8.4 on 05/26/2022 * repeat hemoglobin A1c ordered * Accu checks AC/HS * high-dose SSI ordered * hypoglycemic protocol in place * Diabetic diet ordered * hold Farxiga and mealtime replacement insulin * hold Lantus for now considering reported blood sugar a 53, will reassess in the morning (7) Obstructive sleep apnea on CPAP: Code(s): G47.33 - Obstructive sleep apnea (adult) (pediatric); Z99.89 - Dependence on other enabling machines and devices Status: Chronic Assessment and Plan: * patient does not wear CPAP only wears 2L of oxygen at night only (8) Hypertension: Code(s): I10 - Essential (primary) hypertension Status: Chronic Assessment and Plan: * blood pressure ranging 114/72-136/72 * continue carvedilol (9) Hypothyroidism: Qualifiers: Hypothyroidism type: acquired Qualified Code(s): E03.9 - Hypothyroidism, unspecified Code(s): E03.9 - Hypothyroidism, unspecified Status: Chronic Assessment and Plan: * continue Synthroid * TSH ordered (10) Elevated d-dimer: Code(s): R79.89 - Other specified abnormal findings of blood chemistry Status: Acute Assessment and Plan: * D-dimer 0.79 * Will get V/Q scan to rule out PE considering her history of DVT and PE in the past and is not currently on any anticoagulation * see Acute resp failure plan Time Spent With Patient Time with patient: Greater than 35 minutes Subjective Date/time seen: 08/18/24 08:59 Interval history: Chief Complaint: weakness, low blood glucose Narrative retrieved from H/P: This is a 74-year-old female with a significant past medical history of who presented to the ER with generalized weakness and low blood sugar reading of 53. Patient states that she took her insulin that morning but did not eat anything. Patient reports the following history of presenting illness. Patient states that she has been feeling weak and tired along with a cough and congestion for about a month. She states that the other days she slapped pretty much all day which is unusual for her. She reports only taking [id number] Vicks for her cough and congestion. She states that her cough is dry and that she does not cough anything up. She denies any recent sick contacts. She is a resident over at [facility] and had a negative COVID test earlier in the week. She also reports dysuria and urinary frequency and had concerns for urinary tract infection. Patient denies any fever, nausea, vomiting, diarrhea, abdominal pain, chest pain, shortness a breath. On arrival to the emergency room the patient's oxygen saturation was low. Workup in the hospital included a chest x- ray which showed airspace opacities in the lower lung zones likely atelectasis. Initial labs revealed a hemoglobin of 11.9, white blood cell count was normal at 8.6, creatinine 2.90, EGFR 16, blood glucose ranging 201-260. A UA was obtained which showed cloudy urine appearance, 2+ urine glucose, positive nitrate, 2+ leukocytes, 51-100 urine WBC, 4+ bacteria. Respiratory panel was negative for influenza a and B, RSV, COVID. Blood and urine cultures were obtained and pending. EKG showed sinus rhythm with a rate of 66, QTC 423, D- dimer 0.79. Patient was given a DuoNeb, Rocephin, azithromycin while in the ED. 08/18 pt is seen and examined. V'Q scan is ordered. Echo is ordered. She is resting in bed, calm and comfortable, able to speak in full sentence. Denies pain. Reports some leg swelling. Overall feels better today. Review of Systems Review of Systems: All systems reviewed & are unremarkable except as noted in HPI and below Constitutional: Constitutional: Reports as per HPI and Reports no additional constitutional complaints Eyes: Eyes: Reports as per HPI and Reports no additional eye complaints ENT: Reports system reviewed and no additional complaints, except as documented and Reports as per HPI Cardiovascular: Cardiovascular: Reports as per HPI and Reports no additional cardiovascular complaints Respiratory: Respiratory: Reports as per HPI and Reports no additional respiratory complaints Gastrointestinal: Gastrointestinal: Reports as per HPI and Reports no additional gastrointestinal complaints Genitourinary: Genitourinary: Reports no additional female genitourinary complaints and Reports as per HPI Musculoskeletal: Musculoskeletal: Reports no additional musculoskeletal complaints and Reports as per HPI Integumentary/Breasts: Skin/Breast: Reports system reviewed and no additional complaints, except as docu and Reports as per HPI Neurologic: Reports system reviewed and no additional complaints, except as documented and Reports as per HPI Psychiatric: Psychiatric: Reports no additional psychiatric complaints and Reports as per HPI Exam Narrative: General: Week appearance, well nourished, pleasant Head: atraumatic, no encephalopathy Eyes: PERRLA, sclera clear ENT: moist mucous membranes, nasal passages clear Neck: supple, no JVD, no adenopathy, trachea midline Cardiac: Normal S1 and S2. No murmur, gallops or friction rubs, peripheral pulses intact. Respiratory: Lungs clear in the upper lobes, diminished in the bases, currently on room air, no adventitious lung sounds noted Gastrointestinal: soft, non-distended, non-tender, normoactive bowel sounds. : voiding without difficulty via purewick, clear and yellow. Reports dysuria and urinary frequency Extremities: moves all extremities fair, 1 to 2+ pitting edema to bilateral lower extremity Skin: clean, dry, intact. No wounds or lesions. Neuro: Alert and oriented x4, cranial nerves intact, no neuro deficits. Psych: normal mood, normal affect, interactive, calm Objective Data Vital Signs Vital Signs: Vital Signs - 24 hr 08/17/24 12:03 08/17/24 14:25 08/17/24 14:27 Temperature 97.1 F L Pulse Rate 70 Respiratory Rate 20 Blood Pressure 138/65 Pulse Oximetry 93 87 L 93 Oxygen Delivery Nasal Cannula Room Air Nasal Cannula Oxygen Flow Rate 4 2 Fraction of Inspired Oxygen 08/17/24 12:43 08/17/24 13:01 08/17/24 13:31 Temperature 97.6 F 97.6 F Pulse Rate 67 65 64 Respiratory Rate 18 17 17 Blood Pressure 109/58 L 116/66 114/70 Pulse Oximetry 92 92 92 Oxygen Delivery Oxygen Flow Rate Fraction of Inspired Oxygen 08/17/24 14:01 08/17/24 14:31 08/17/24 15:01 Temperature 97.8 F 97.6 F Pulse Rate 72 63 65 Respiratory Rate 20 22 H 19 Blood Pressure 113/71 124/62 137/74 Pulse Oximetry 94 91 92 Oxygen Delivery Oxygen Flow Rate Fraction of Inspired Oxygen 08/17/24 16:00 08/17/24 16:30 08/17/24 17:30 Temperature 97.7 F 97.6 F 97.4 F L Pulse Rate 64 62 63 Respiratory Rate 18 16 17 Blood Pressure 136/72 136/76 126/74 Pulse Oximetry 92 98 98 Oxygen Delivery Oxygen Flow Rate Fraction of Inspired Oxygen 08/17/24 18:16 08/17/24 20:39 08/17/24 21:24 Temperature 98.1 F 97.7 F Pulse Rate 67 70 Respiratory Rate 20 20 Blood Pressure 127/64 125/63 Pulse Oximetry 93 95 94 Oxygen Delivery Nasal Cannula Oxygen Flow Rate 2 Fraction of Inspired Oxygen 08/17/24 21:24 08/17/24 22:10 08/18/24 01:58 Temperature Pulse Rate 67 66 Respiratory Rate 18 18 Blood Pressure Pulse Oximetry 94 Oxygen Delivery Nasal Cannula Oxygen Flow Rate 4 Fraction of Inspired Oxygen 08/18/24 02:06 08/18/24 06:00 08/18/24 07:22 Temperature 97.5 F L Pulse Rate 67 76 Respiratory Rate 18 20 Blood Pressure 129/58 L Pulse Oximetry 93 91 Oxygen Delivery Nasal Cannula Oxygen Flow Rate 2 Fraction of Inspired Oxygen 28 08/18/24 07:22 08/18/24 07:29 Temperature Pulse Rate 71 70 Respiratory Rate 20 20 Blood Pressure Pulse Oximetry Oxygen Delivery Oxygen Flow Rate Fraction of Inspired Oxygen Intake/Output Intake/Output: Intake & Output 08/15/24 08/16/24 08/17/24 08/18/24 23:59 23:59 23:59 23:59 Intake Total 50 500 Output Total 200 700 Balance -150 -200 Meds/Results Medications: Active Medications Generic Name Dose Route Start Last Admin Trade Name Freq PRN Reason Stop Dose Admin Acetaminophen 650 mg 08/17/24 16:39 Acetaminophen 325 Mg Tablet PO Q4H PRN Mild Pain (1-3) or Fever Albuterol/Ipratropium 3 ml 08/17/24 20:00 08/18/24 07:22 Ipratropium 0.5 Mg/Albuterol Sulfate 2.5 Mg Ampul.Neb 3 Ml INHALATION 3 ml Q6HRT [facility] Administration Allopurinol 300 mg 08/18/24 09:00 Allopurinol 300 Mg Tablet PO DAILY [facility] Amitriptyline HCl 10 mg 08/17/24 21:00 08/17/24 21:40 Amitriptyline Hcl 10 Mg Tablet PO 10 mg QHS [facility]ELA Administration Aspirin 81 mg 08/18/24 09:00 Aspirin 81 Mg Enteric Tablet PO QAM [facility] Atorvastatin Calcium 10 mg 08/17/24 21:00 08/17/24 21:40 Atorvastatin 10 Mg Tablet PO 10 mg HS [facility] Administration Azithromycin 500 mg 08/18/24 12:00 Azithromycin 250 Mg Tablet PO DAILY@1200 [facility] Benzonatate 100 mg 08/17/24 20:42 Benzonatate 100 Mg Capsule PO TID PRN Cough Carvedilol 25 mg 08/18/24 09:00 Carvedilol 25 Mg Tablet PO Q12HR [facility] Dextrose 12.5 gm 08/17/24 17:18 Dextrose 50% 25 Gm/50 Ml Syringe IV PUSH PRN PRN Hypoglycemia Protocol Enoxaparin Sodium 30 mg 08/18/24 09:00 Enoxaparin 30 Mg/0.3 Ml Syringe SUB-Q DAILY [facility] Escitalopram Oxalate 20 mg 08/18/24 09:00 Escitalopram Oxalate 10 Mg Tablet PO DAILY [facility] Fluticasone Propionate 2 spray 08/18/24 09:00 Fluticasone Propionate 0.05% Na Spr 16 Gm Btl (*Bkc) NASAL DAILY [facility] Furosemide 40 mg 08/18/24 09:00 Furosemide Inj 40 Mg/4 Ml Vial IV PUSH BID [facility] Gabapentin 300 mg 08/17/24 21:00 08/17/24 21:40 Gabapentin 300 Mg Capsule PO 300 mg QHS [facility] Administration Glucagon 1 mg 08/17/24 17:18 Glucagon For Inj 1 Mg Vial IM PRN PRN Hypoglycemia Protocol Glucose 15 gm 08/17/24 17:18 Glucose Oral Gel 15 Gm Of Glucse In 37.5 Gm Tube PO PRN PRN Hypoglycemia Protocol Ceftriaxone Sodium 1 gm in 50 mls @ 100 mls/hr 08/18/24 09:00 Rocephin 1 Gm/Ns 50 Ml IVPB Q24H [facility] Dextrose 1,000 mls @ 100 mls/hr 08/17/24 17:18 Dextrose 5% 1,000 Ml IVPB PRN PRN Hypoglycemia Protocol Insulin Aspart 4 - 8 units 08/18/24 08:00 Insulin Aspart (*Bkc) 100 Units/Ml SUB-Q TIDWM [facility] Protocol Insulin Aspart 2 - 4 units 08/17/24 21:00 08/17/24 21:40 Insulin Aspart (*Bkc) 100 Units/Ml SUB-Q Not Given HS [facility] Protocol Levothyroxine Sodium 50 mcg 08/18/24 06:30 08/18/24 05:49 Levothyroxine Sodium 50 Mcg Tablet PO 50 mcg DAILY@0630 [facility] Administration Ondansetron HCl 4 mg 08/17/24 17:17 Ondansetron Inj 4 Mg/2 Ml Vial IV PUSH Q6H PRN Nausea And Vomiting Pantoprazole Sodium 40 mg 08/18/24 09:00 Pantoprazole 40 Mg Tablet PO QAM [facility] Perflutren Lipid Microsphere 0 ml 08/17/24 17:30 Perflutren Lipid Microspheres 1.5 Ml Vial Diluted To 10 Ml Total Volume IV PUSH 08/20/24 17:30 ONCE PRN adequate visualization Protocol Sodium Chloride 2 spray 08/17/24 20:42 Saline 0.65% Sha Soln 44 Ml Btl NASAL QID PRN nasal congestion/dryness Vitamin D 2,000 units 08/18/24 09:00 Cholecalciferol 1,000 Units Tablet PO DAILY [facility] Radiology Results: ITS Impressions Chest X-Ray 08/17/24 13:11 IMPRESSION: 1. Airspace opacities in the lower lung zones, likely atelectasis. Labs Labs: Laboratory Results - last 24 hr 08/17/24 08/17/24 08/17/24 12:19 12:46 13:04 WBC 8.6 RBC 3.91 L Hgb 11.9 L Hct 40.2 MCV 102.8 H MCH 30.4 MCHC 29.6 L RDW 16.2 H Plt Count 214 MPV 9.8 Immature Gran % (Auto) 0.4 Neut % (Auto) 56.4 Lymph % (Auto) 27.6 [place] % (Auto) 9.7 H Eos % (Auto) 5.1 H Baso % (Auto) 0.8 Lymph # (Auto) 2.36 [place] # (Auto) 0.8 H Eos # (Auto) 0.4 H Baso # (Auto) 0.1 Abs Immat Gran (auto) 0.03 Absolute Neuts (auto) 4.8 Absolute Nucleated RBC 0.000 Nucleated RBC % 0.0 D-Dimer Puncture Site Right radial ABG pH 7.366 ABG pCO2 46.2 H ABG pO2 58.7 L ABG PO2/FiO2 Ratio 2.10 ABG HCO3 25.9 ABG O2 Saturation 89.5 L ABG O2 Content 15.5 L ABG Base Excess 0.2 A-a Gradient 86.4 Oxyhemoglobin 88.6 L Carboxyhemoglobin 1.4 Methemoglobin 0.3 Reduced Hemoglobin 9.7 H Total Hemoglobin 12.4 O2 Delivery Device Nasal cannula O2 Liters/Min 2.0 FiO2 28 Sodium 137 Potassium 4.5 Chloride 98 Carbon Dioxide 29 Anion Gap 10 BUN 61 H Creatinine 2.90 H Estim Creat Clear Calc 23 Estimated GFR 16 L Glucose 201 H POC Capillary Glucose 260 H Hemoglobin A1c Calcium 10.1 Total Bilirubin 0.4 AST 17 ALT 12 Alkaline Phosphatase 105 Troponin I NT-Pro-B Natriuret Pep Total Protein 7.0 Albumin 3.8 Procalcitonin TSH Urine Color Yellow Urine Appearance Cloudy H Urine pH 5.5 Ur Specific [place] 1.013 Urine Protein Trace Urine Glucose (UA) 2+ H Urine Ketones Negative Ur Blood (Man) Negative Urine Nitrate Positive H Urine Bilirubin Negative Urine Urobilinogen 0.2 Leukocyte Esterase Rfl 2+ H Urine RBC 0-2 Urine WBC 51-100 H Ur Squamous Epith Cells None seen Urine Bacteria 4+ H Urine Casts 0-2 Nasal MRSA (PCR) Influenza A (RT-PCR) Negative Influenza B (RT-PCR) Negative RSV (RT-PCR) Negative SARS-CoV-2 RNA (RT-PCR) Negative 08/17/24 08/17/24 08/17/24 17:45 19:24 19:28 WBC RBC Hgb Hct MCV MCH MCHC RDW Plt Count MPV Immature Gran % (Auto) Neut % (Auto) Lymph % (Auto) [place] % (Auto) Eos % (Auto) Baso % (Auto) Lymph # (Auto) [place] # (Auto) Eos # (Auto) Baso # (Auto) Abs Immat Gran (auto) Absolute Neuts (auto) Absolute Nucleated RBC Nucleated RBC % D-Dimer 0.79 H Puncture Site ABG pH ABG pCO2 ABG pO2 ABG PO2/FiO2 Ratio ABG HCO3 ABG O2 Saturation ABG O2 Content ABG Base Excess A-a Gradient Oxyhemoglobin Carboxyhemoglobin Methemoglobin Reduced Hemoglobin Total Hemoglobin O2 Delivery Device O2 Liters/Min FiO2 Sodium Potassium Chloride Carbon Dioxide Anion Gap BUN Creatinine Estim Creat Clear Calc Estimated GFR Glucose POC Capillary Glucose 144 H Hemoglobin A1c 9.5 H Calcium Total Bilirubin AST ALT Alkaline Phosphatase Troponin I < 0.012 NT-Pro-B Natriuret Pep 483 H Total Protein Albumin Procalcitonin TSH 1.920 Urine Color Urine Appearance Urine pH Ur Specific [place] Urine Protein Urine Glucose (UA) Urine Ketones Ur Blood (Man) Urine Nitrate Urine Bilirubin Urine Urobilinogen Leukocyte Esterase Rfl Urine RBC Urine WBC Ur Squamous Epith Cells Urine Bacteria Urine Casts Nasal MRSA (PCR) Not detected Influenza A (RT-PCR) Influenza B (RT-PCR) RSV (RT-PCR) SARS-CoV-2 RNA (RT-PCR) 08/18/24 08/18/24 05:23 08:35 WBC 7.9 RBC 3.92 L Hgb 11.6 L Hct 39.3 MCV 100.3 H MCH 29.6 MCHC 29.5 L RDW 16.1 H Plt Count 225 MPV 9.7 Immature Gran % (Auto) 0.3 Neut % (Auto) 57.3 Lymph % (Auto) 27.1 [place] % (Auto) 9.2 H Eos % (Auto) 5.3 H Baso % (Auto) 0.8 Lymph # (Auto) 2.14 [place] # (Auto) 0.7 H Eos # (Auto) 0.4 H Baso # (Auto) 0.1 Abs Immat Gran (auto) 0.02 Absolute Neuts (auto) 4.5 Absolute Nucleated RBC 0.000 Nucleated RBC % 0.0 D-Dimer Puncture Site ABG pH ABG pCO2 ABG pO2 ABG PO2/FiO2 Ratio ABG HCO3 ABG O2 Saturation ABG O2 Content ABG Base Excess A-a Gradient Oxyhemoglobin Carboxyhemoglobin Methemoglobin Reduced Hemoglobin Total Hemoglobin O2 Delivery Device O2 Liters/Min FiO2 Sodium 139 Potassium 3.9 Chloride 100 Carbon Dioxide 33 H Anion Gap 6 BUN 57 H Creatinine 2.80 H Estim Creat Clear Calc 23 Estimated GFR 17 L Glucose 179 H POC Capillary Glucose 196 H Hemoglobin A1c Calcium 10.2 Total Bilirubin 0.4 AST 17 ALT 11 Alkaline Phosphatase 109 Troponin I NT-Pro-B Natriuret Pep Total Protein 7.0 Albumin 3.6 Procalcitonin 0.1 TSH Urine Color Urine Appearance Urine pH Ur Specific [place] Urine Protein Urine Glucose (UA) Urine Ketones Ur Blood (Man) Urine Nitrate Urine Bilirubin Urine Urobilinogen Leukocyte Esterase Rfl Urine RBC Urine WBC Ur Squamous Epith Cells Urine Bacteria Urine Casts Nasal MRSA (PCR) Influenza A (RT-PCR) Influenza B (RT-PCR) RSV (RT-PCR) SARS-CoV-2 RNA (RT-PCR) Quality VTE Prophylaxis VTE prophylaxis: pharmacologic ordered
[2024-08-18] MEDS: ESCITALOPRAM OXALATE 10 MG TABLET 20 MG PO (09:02)
[2024-08-18] MEDS: ASPIRIN 81 MG ENTERIC TABLET PO (09:02)
[2024-08-18] MEDS: ENOXAPARIN 30 MG/0.3 ML SYRINGE SUB-Q (09:04)
[2024-08-18] MEDS: ACETAMINOPHEN 325 MG TABLET 650 MG PO ×2 (09:09→12:20)
[2024-08-18] MEDS: FLUTICASONE PROPIONATE 0.05% NA SPR 16 GM BTL (*BKC) 2 SPRAY NASAL (09:11)
[2024-08-18 12:07] LABS: Glucose Point of Care 203 mg/dl (65-105)
[2024-08-18] MEDS: AZITHROMYCIN 250 MG TABLET 500 MG PO (12:21)
[2024-08-18] MEDS: INSULIN ASPART (*BKC) 100 UNITS/ML SUB-Q ×3 (12:22→21:35)
[2024-08-18] MEDS: HYDROcodone/acetaminophen (*CRX) 5-325 MG TABLET 1 TAB PO ×2 (15:39→21:39)
[2024-08-18] MEDS: FUROSEMIDE INJ 40 MG/4 ML VIAL 80 MG IV PUSH (15:39)
[2024-08-18 15:46] LABS: Creatinine Urine 83.1 mg/dL; Total Protein Urine Random 35 mg/dL; Ur Ttl Prot Creatinine Ratio 0.42 mg/mg (0-0.20)
[2024-08-18 15:48] LABS: Total Protein Urine Random 34 mg/dL; Urea Random Urine 562 MG/DL
[2024-08-18 15:58] LABS: Sodium Urine Random 61 meq/L
[2024-08-18 17:48] LABS: Glucose Point of Care 216 mg/dl (65-105)
[2024-08-18 20:46] LABS: Glucose Point of Care 256 mg/dl (65-105)
[2024-08-18] MEDS: ATORVASTATIN 10 MG TABLET PO (21:35)
[2024-08-18] MEDS: GABAPENTIN 300 MG CAPSULE PO (21:36)
[2024-08-18] MEDS: AMITRIPTYLINE HCL 10 MG TABLET PO (21:36)
[2024-08-19] VITALS (13 sets, daily range): BP systolic 119–138; BP diastolic 54–73; PULSE 73–95; RESP 18–20; TEMP 36.5–37.1; O2SAT 91–93
[2024-08-19 05:54] LABS: Basophils Absolute Auto 0.1 K/mm3 (0.0-0.1); Basophils Percent Auto 0.6 % (0.2-1.2); Eosinophils Absolute Auto 0.5 K/mm3 (0-0.3); Eosinophils Percent Auto 4.3 % (0-4.4); Hematocrit 43.8 % (37.0-47.0); Hemoglobin 13.1 g/dL (12.0-15.0); Immature Granulocyte Absolute 0.03 K/mm3 (0.00-0.031); Immature Granulocyte Percent A 0.3 % (0-0.5); Lymphocytes Absolute Auto 2.53 K/mm3 (0.9-3.2); Lymphocytes Percent Auto 24.3 % (18.3-44.2); Mean Corpuscular HGB Conc 29.9 g/dl (32-36); Mean Corpuscular Hemoglobin 29.7 pg (26-34); Mean Corpuscular Volume 99.3 fl (80-100); Mean Platelet Volume 9.7 fl (7.4-10.4); Monocytes Absolute Auto 0.7 K/mm3 (0.1-0.6); Monocytes Percent Auto 7.1 % (2.6-8.5); Neutrophils Absolute Auto 6.6 K/mm3 (1.3-6.7); Neutrophils Percent Auto 63.4 % (45.5-73.1); Platelet Count Result 243 k/mm3 (150-375); Red Blood Count 4.41 M/mm3 (4.2-5.4); Red Cell Distribution Width 16.3 % (11.5-14.5); White Blood Count 10.4 K/mm3 (4.5-10.0)
[2024-08-19 06:03] LABS: Alanine Aminotransferase 12 U/L (6-35); Albumin Level 4.3 g/dL (3.5-5.1); Alkaline Phosphatase 131 U/L (38-126); Anion Gap 12 mmol/L (4-12); Aspartate Amino Transferase 17 U/L (14-36); Bilirubin,Total 0.7 mg/dL (0.2-1.3); Blood Urea Nitrogen 59 mg/dL (7-17); Carbon Dioxide 29 mmol/L (22-30); Chloride 96 mmol/L (98-107); Estimated CRCL calculation 22 ml/min; Estimated Glomerular Filt Rate 16; Glucose 270 mg/dL (65-110); Potassium 4.1 mmol/L (3.4-5.0); Sodium 137 mmol/L (137-145)
[2024-08-19] MEDS: LEVOTHYROXINE SODIUM 50 MCG TABLET PO (06:03)
[2024-08-19] MEDS: IPRATROPIUM 0.5 MG/ALBUTEROL SULFATE 2.5 MG AMPUL.NEB 3 ML INHALATION ×3 (07:32→20:12)
[2024-08-19 08:10] LABS: Glucose Point of Care 324 mg/dl (65-105)
[2024-08-19] MEDS: ESCITALOPRAM OXALATE 10 MG TABLET 20 MG PO (08:54)
[2024-08-19] MEDS: carvediloL 25 MG TABLET PO ×2 (08:55→20:35)
[2024-08-19] MEDS: allopurinoL 300 MG TABLET PO (08:55)
[2024-08-19] MEDS: PANTOPRAZOLE 40 MG TABLET PO (08:55)
[2024-08-19] MEDS: CHOLECALCIFEROL 1,000 UNITS TABLET 2000 UNITS PO (08:55)
[2024-08-19] MEDS: ASPIRIN 81 MG ENTERIC TABLET PO (09:00)
[2024-08-19] MEDS: ENOXAPARIN 30 MG/0.3 ML SYRINGE SUB-Q (09:00)
[2024-08-19] MEDS: FLUTICASONE PROPIONATE 0.05% NA SPR 16 GM BTL (*BKC) 2 SPRAY NASAL (09:01)
[2024-08-19] MEDS: INSULIN ASPART (*BKC) 100 UNITS/ML SUB-Q ×4 (09:03→20:35)
--- NOTE | 2024-08-19 09:51 | PM.CNNEP ---
Assessment and Plan Assessment and plan (1) Chronic kidney disease, stage 4 (severe): Code(s): N18.4 - Chronic kidney disease, stage 4 (severe) Status: Acute Assessment and Plan: The patient has chronic kidney disease stage 4. This is likely due to diabetes and hypertension. Her creatinine is at about its baseline. She does not look like she has any uremic symptoms. (2) Hypercalcemia: Code(s): E83.52 - Hypercalcemia Status: Acute Assessment and Plan: Patient has a high calcium. This apparently has been the case before. She has a diagnosis of hyperparathyroidism in the records. Will check a PTH level and also a urine calcium to creatinine ratio. She does not seem to be on any calcium supplements or thiazide diuretics. Secondary hyperparathyroidism usually comes with a low calcium not a high calcium. Will check a phosphorus level in the morning and see what the PTH level is. We can also check a vitamin-D level. (3) Obstructive sleep apnea on CPAP: Code(s): G47.33 - Obstructive sleep apnea (adult) (pediatric); Z99.89 - Dependence on other enabling machines and devices Status: Chronic Assessment and Plan: The patient uses oxygen at night but does not use a CPAP mask. (4) Type 2 diabetes mellitus: Qualifiers: Diabetes mellitus residential insulin use: with middle or intermediate school principal use Diabetes mellitus complication status: with kidney complications Diabetes mellitus complication detail: with chronic kidney disease Chronic kidney disease stage: stage 3 (moderate) Chronic kidney disease stage 3 subtype: stage 3b (GFR 30-44) Qualified Code(s): E11.22 - Type 2 diabetes mellitus with diabetic chronic kidney disease; N18.32 - Chronic kidney disease, stage 3b; Z79.4 - [facility] (current) use of insulin Code(s): E11.9 - Type 2 diabetes mellitus without complications Status: Chronic Assessment and Plan: On Accu-Cheks and sliding scale insulin per hospitalists. (5) Anemia: Code(s): D64.9 - Anemia, unspecified Status: Acute Assessment and Plan: Her hemoglobin is actually pretty good today at 13.1. (6) Hypertension: Code(s): I10 - Essential (primary) hypertension Status: Chronic Assessment and Plan: Blood pressure is under good control with systolics between 120 and 149 She takes carvedilol and guanfacine for this. (7) Gout: Code(s): M10.9 - Gout, unspecified Status: Acute Assessment and Plan: The patient has been diagnosed with gout. With her GFR she is on quite a high dose of allopurinol. Will cut the dose down [id number] and check a uric acid level. History of Present Illness Reason for Consult Consult date: 08/19/24 Chief Complaint Chief complaint: hypoxia, pneumonia, uti History of Present Illness Narrative: Beto is a very pleasant 73-year-old lady who has multiple medical problems including stage IV chronic kidney disease under the care of Dr Peoples, hypertension, diabetes, peripheral vascular disease, aortic aneurysm, congestive heart failure, COPD, sleep apnea, gout, hypercalcemia, hyperlipidemia, anemia, hyperparathyroidism, pulmonary embolism. The patient came into the hospital because of weakness and low blood pressure. She was assessed at the group home because of these complaints. Was sent to the ER and upon arrival her oxygen level was found to be low. Chest x-ray showed atelectasis. Because of the low oxygen she was given 1 dose of diuretics. She was admitted to the floor. The patient feels better now. She is not short of breath. She is on some oxygen. She ate pretty well for breakfast. The patient sees Dr. Peoples in the office in [place]. She was told of stage 4 chronic kidney disease. Her baseline creatinine seems to be around 2.5-3. She tells me that he has not mentioned dialysis or the need to get education. She tells me that it is from hypertension, diabetes, and possibly nonsteroidals. She does not take any of the latter medication anymore. Review of Systems Constitutional: Constitutional: Reports no additional constitutional complaints Eyes: Eyes: Reports no additional eye complaints ENT: Reports system reviewed and no additional complaints, except as documented Cardiovascular: Cardiovascular: Reports no additional cardiovascular complaints Respiratory: Respiratory: Reports no additional respiratory complaints Gastrointestinal: Gastrointestinal: Reports no additional gastrointestinal complaints Genitourinary: Genitourinary: Reports no additional female genitourinary complaints Musculoskeletal: Musculoskeletal: Reports no additional musculoskeletal complaints Integumentary/Breasts: Skin/Breast: Reports system reviewed and no additional complaints, except as docu Neurologic: Reports system reviewed and no additional complaints, except as documented Psychiatric: Psychiatric: Reports no additional psychiatric complaints Endocrine: Endocrine: Reports no additional endocrine complaints [facility] Past Medical History Medical History BRADY (acute kidney injury) Anemia Aortic aneurysm Asthma Carpal tunnel syndrome on both sides Cephalgia Change in bowel habits CHF (congestive heart failure), NYHA class I Chronic kidney disease, stage 4 (severe) Chronic respiratory failure with hypoxia, on home oxygen therapy COPD (chronic obstructive pulmonary disease) Decubitus skin ulcer Deep venous thrombosis Diabetic neuropathy Diabetic polyneuropathy Dysphagia Gout Hypercalcemia Hyperkalemia Hyperlipidemia Hyperparathyroidism Hypertension Hyponatremia Hypothyroidism Neuropathy Obstructive sleep apnea on CPAP Osteoarthritis of facet joint of lumbar spine Pulmonary embolism Thoracic aortic aneurysm, without rupture Thyroid nodule Type 2 diabetes mellitus with hyperglycemia Surgical History Surgical History History of appendectomy History of cardiac catheterization History of cholecystectomy History of hysterectomy Hx of cataract removal with insertion of prosthetic lens Family History Family History Mother Diabetes mellitus Family history of bipolar disorder Hypertension Father Family history of cardiovascular disease Cerebrovascular accident Family history of emphysema Other Family history of anemia Family history of congestive heart failure Family history of obesity Social History Social History Social History: Surrogate decision maker: Beverly Flores, daughter. The patient also has a son. She is . 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 She is a lifelong nonsmoker. She does not use any alcohol or illicit drugs. Code status: Full code. Smoking status: Never smoker Second hand tobacco smoke exposure: No Alcohol intake: current Drinks per week: 1 Substance use: never Substance use type: does not use Do You Feel Safe in your Home?: Yes Lack of Transportation: No Lack of Food: Never True Current Housing: I Have Housing Concerned About Future Housing: No Difficulty Paying Gas/Electric Bills: No Difficulty Paying for Meds: No Currently Unemployed: No Education: Decline to Answer Difficulty w/ Childcare or Family Care: No Living arrangements: assisted living Additional living arrangements comments: Assisted living at [facility]. Gender identity (if verbalized by the patient): Female Spiritual care concerns: No Meds Home Medications and Allergies Home Medications Medication Instructions Recorded Confirmed Type magnesium oxide 400 mg PO DAILY 11/15/19 08/17/24 History allopurinol 300 mg tablet 300 mg PO DAILY 03/17/21 08/17/24 History atorvastatin 10 mg tablet 10 mg PO HS 05/27/21 08/17/24 History aspirin 81 mg capsule 81 mg PO DAILY 08/31/21 08/17/24 History fluticasone furoate 100 1 inh inhalation DAILY 12/29/21 08/17/24 History mcg-vilanterol 25 mcg/dose inhalation powder (Breo Ellipta) omega-3 fatty acids 1,000 mg PO DAILY 12/29/21 08/17/24 History escitalopram oxalate 20 mg tablet 20 mg PO DAILY #90 tabs 01/21/22 08/17/24 Rx (Lexapro) cholecalciferol (vitamin D3) 50 50 mcg PO DAILY 05/25/22 08/17/24 History mcg (2,000 unit) tablet guanfacine 2 mg tablet 2 mg PO HS 07/13/22 08/17/24 History pantoprazole 40 mg tablet,delayed 40 mg PO QAM 1 month #30 tabs 11/16/22 08/17/24 Rx release flash glucose sensor (FreeStyle #6 ea 06/29/23 08/17/24 Rx Jeffrey 2 Sensor kit) levothyroxine 50 mcg tablet 50 mcg PO DAILY #90 tabs 06/29/23 08/17/24 Rx cetirizine 10 mg tablet 10 mg PO DAILY PRN allergy 07/04/23 08/17/24 Rx symptoms #90 tabs dapagliflozin propanediol 10 mg 10 mg PO DAILY #90 tabs 01/05/24 08/17/24 Rx tablet (Farxiga) miconazole nitrate 2 % topical 1 applic topical BID #85 grams 01/10/24 08/17/24 Rx powder (Miconazorb AF) fluticasone propionate 50 2 spray intranasal DAILY #16 grams 01/17/24 08/17/24 Rx mcg/actuation nasal spray,suspension pen needle, diabetic 30 gauge x 01/24/24 08/17/24 History 1/3 fexofenadine 180 mg tablet 180 mg PO DAILY 02/08/24 08/17/24 History pen needle, diabetic, safety 30 #100 ea 03/13/24 08/17/24 Rx gauge x 1/3 (Novofine Autocover) amitriptyline 10 mg tablet 10 mg PO QHS 1 month #30 tabs 03/21/24 08/17/24 Rx albuterol sulfate 90 mcg/actuation 2 puff inhalation Q4H PRN 03/28/24 08/17/24 Rx aerosol inhaler (Ventolin HFA) shortness of breath or wheezing #8.5 grams albuterol sulfate 2.5 mg/0.5 mL 2.5 mg (0.5 mL) inhalation Q20M 05/09/24 08/17/24 Rx solution for nebulization PRN shortness of breath or wheezing #30 ea gabapentin 300 mg capsule 300 mg PO QHS #90 caps 05/09/24 08/17/24 Rx acetaminophen 325 mg tablet 650 mg PO BID 08/17/24 08/17/24 History acetaminophen 500 mg tablet 500 mg PO Q6H PRN mild pain or 08/17/24 08/17/24 History fever atogepant 10 mg tablet (Qulipta) 10 mg PO DAILY 08/17/24 08/17/24 History benzonatate 100 mg capsule 100 mg PO TID PRN Cough 08/17/24 08/17/24 History mhsiqrubxq-bbiseyjhpmgpf-xgfjoiop 2 cap PO DAILY PRN Pain 08/17/24 08/17/24 History 50 mg-300 mg-40 mg capsule (Fioricet) carvedilol 25 mg tablet 25 mg PO BIDWM 08/17/24 08/17/24 History furosemide 80 mg tablet See Rx Instructions .Route .COMPLEX 08/17/24 08/17/24 History insulin glargine 100 unit/mL (3 45 unit subcut QAM 08/17/24 08/17/24 History mL) subcutaneous pen (Basaglar KwikPen U-100 Insulin) insulin lispro 100 unit/mL 12 unit subcut QACBREAK E11.65 - 08/17/24 08/17/24 History subcutaneous pen (Humalog KwikPen Type 2 diabetes mellitus with (U-100) Insulin) hyperglycem insulin lispro 100 unit/mL See Rx Instructions .Route .COMPLEX 08/17/24 08/17/24 History subcutaneous pen (Humalog KwikPen (U-100) Insulin) insulin lispro 100 unit/mL See Rx Instructions .Route .COMPLEX 08/17/24 08/17/24 History subcutaneous pen (Humalog KwikPen (U-100) Insulin) sodium chloride 0.65 % nasal spray 2 spray intranasal QID PRN nasal 08/17/24 08/17/24 History aerosol (Deep Sea Nasal) congestion/dryness Allergies Allergy/AdvReac Type Severity Reaction Status Date / Time No Known Allergies Allergy Verified 08/17/24 22:00 Vital Signs Vital Signs - 24 hr 08/18/24 12:26 08/18/24 13:26 08/18/24 13:26 Temperature Pulse Rate 81 Respiratory Rate 20 Blood Pressure Pulse Oximetry 91 Oxygen Delivery Nasal Cannula Nasal Cannula Oxygen Flow Rate 2 2 Fraction of Inspired Oxygen 28 08/18/24 13:32 08/18/24 13:37 08/18/24 13:40 Temperature Pulse Rate 75 Respiratory Rate 20 Blood Pressure Pulse Oximetry 89 L 93 Oxygen Delivery Nasal Cannula Nasal Cannula Oxygen Flow Rate 4 4 Fraction of Inspired Oxygen 08/18/24 14:00 08/18/24 14:49 08/18/24 16:30 Temperature 97.7 F Pulse Rate 82 Respiratory Rate 18 Blood Pressure 121/62 144/69 H Pulse Oximetry 93 Oxygen Delivery Nasal Cannula Oxygen Flow Rate 4 Fraction of Inspired Oxygen 08/18/24 20:04 08/18/24 20:07 08/18/24 20:11 Temperature Pulse Rate 82 82 78 Respiratory Rate 20 20 Blood Pressure Pulse Oximetry 92 Oxygen Delivery Nasal Cannula Oxygen Flow Rate 3 Fraction of Inspired Oxygen 32 08/18/24 20:50 08/18/24 21:36 08/18/24 20:00 Temperature 98.2 F Pulse Rate 84 84 Respiratory Rate 18 Blood Pressure 149/68 H Pulse Oximetry 94 94 Oxygen Delivery Nasal Cannula Oxygen Flow Rate 4 Fraction of Inspired Oxygen 08/19/24 06:00 08/19/24 07:32 08/19/24 07:32 Temperature 98.7 F Pulse Rate 95 84 Respiratory Rate 20 20 Blood Pressure 138/73 Pulse Oximetry 93 92 Oxygen Delivery Nasal Cannula Oxygen Flow Rate 4 Fraction of Inspired Oxygen 36 08/19/24 08:55 Temperature Pulse Rate 73 Respiratory Rate Blood Pressure Pulse Oximetry Oxygen Delivery Oxygen Flow Rate Fraction of Inspired Oxygen Exam Narrative: Exam Narrative: Well developed well-nourished female in no acute distress Skin is warm and dry without rash Head normocephalic atraumatic Eyes normal sclerae and conjunctivae Mouth normal lips teeth and gums Neck no nodes no thyromegaly no carotid bruits Axillae no nodes Back no CVA tenderness Lungs symmetric and clear to auscultation and percussion Heart regular rate and rhythm without rub or gallop Abdomen bowel sounds positive soft nontender, no HSM, masses, or bruits. Extremities no cyanosis, clubbing, or edema Pulses 2+ equal in radial arteries Psychological not anxious or depressed Neuro alert and oriented x3 motor 5/5 cranial nerves 2-12 intact reflexes 2+ and equal in the biceps and patellar tendons cerebellar normal rapid alternating movements Results Lab Results 08/19/24 05:39 08/19/24 05:39 Lab results: Most recent lab results ABG pH 7.366 (7.350-7.450) 08/17/24 13:04 ABG pCO2 46.2 mmHg (35.0-45.0) H 08/17/24 13:04 ABG pO2 58.7 mmHg (80.0-100.0) L 08/17/24 13:04 ABG HCO3 25.9 mEq/l (22.0-26.0) 08/17/24 13:04 ABG O2 Saturation 89.5 % (95.0-100.0) L 08/17/24 13:04 Calcium 11.0 mg/dL (8.4-10.2) H 08/19/24 05:39 Urine Creatinine 83.1 mg/dL 08/18/24 15:28
[2024-08-19 10:28] LABS: Uric Acid 4.7 mg/dL (2.5-7.5)
--- NOTE | 2024-08-19 10:36 | P.PNIM_ITS ---
Progress Note: A&P Assessment and Plan (1) Acute respiratory failure with hypoxia: Code(s): J96.01 - Acute respiratory failure with hypoxia Status: Acute Assessment and Plan: * patient is not on any baseline oxygen during the day however is requiring 2-4 L nasal cannula now due to hypoxia in the ER with oxygen saturation of 87% on room air. 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 However she does not take any chronic anticoagulation * will also check troponin * EKG showing sinus rhythm with a rate of 66, QTC 423 08/18- V/Q scan ordered unable to do V/Q scan over the weekend. Cr is still high, cr cl too low/gfr low- risk for worsening of kidney functions- discussed with pt. -WELL's criteria for PE- 1.5%- low suspicion for PE- so will observe for now and hold off on scans 08/19- stable- no worsening symptoms-continue regimen and monitor Discussed with Dr Bergman- ok to do VQ scan-will proceed then to r/o PE (2) CHF (congestive heart failure), NYHA class I: Qualifiers: Congestive heart failure type: unspecified Qualified Code(s): I50.9 - Heart failure, unspecified Code(s): I50.9 - Heart failure, unspecified Status: Acute Assessment and Plan: * echocardiogram from 12/30/2021 showed normal LV systolic function with an estimated EF of 65-70%, grade 1 diastolic dysfunction. * Chest x-ray reporting airspace opacities in the lower lung zones likely atelectasis. After reviewing the chest x-ray myself and comparing it to a previous chest x-ray patient does appear to have pulmonary edema * proBNP ordered * a one time dose of 40 mg of IV Lasix ordered-- Will hold off on further diuresis considering renal function * consider nephrology consult if requiring further diuresis * will obtain another echocardiogram in the morning * continuous telemetry monitoring ordered (3) UTI (urinary tract infection): Qualifiers: Hematuria presence: without hematuria Urinary tract infection type: site unspecified Qualified Code(s): N39.0 - Urinary tract infection, site not specified Code(s): N39.0 - Urinary tract infection, site not specified Status: Acute Assessment and Plan: * UA revealed cloudy urine appearance, 2+ urine glucose, positive nitrate, 2+ leukocyte, 51-100 urine WBC, 4+ urine bacteria. * Urine and blood culture was obtained and pending * patient was started on Rocephin * urine culture from 06/23/2023 revealed E coli which was essentially pansensitive except for Bactrim * continue antibiotics- waiting for sensitivies (4) Chronic kidney disease, stage IV (severe): Code(s): N18.4 - Chronic kidney disease, stage 4 (severe) Status: Chronic Assessment and Plan: * creatinine 2.9, EGFR 16 * baseline creatinine 2.10-2.60, baseline EGFR 18-23 * continue to trend * avoid nephrotoxic medications or testing with IV contrast * - nephrology consulted- appreciate recommendations (5) Hyperlipidemia: Qualifiers: Hyperlipidemia type: other hyperlipidemia Qualified Code(s): E78.49 - Other hyperlipidemia Code(s): E78.5 - Hyperlipidemia, unspecified Status: Chronic Assessment and Plan: * continue atorvastatin and aspirin (6) Type 2 diabetes mellitus: Qualifiers: Chronic kidney disease stage: stage 3 (moderate) Chronic kidney disease stage 3 subtype: stage 3b (GFR 30-44) Diabetes mellitus complication detail: with chronic kidney disease Diabetes mellitus complication status: with kidney complications Diabetes mellitus terminal supervisor insulin use: with halfway use Qualified Code(s): E11.22 - Type 2 diabetes mellitus with diabetic chronic kidney disease; N18.32 - Chronic kidney disease, stage 3b; Z79.4 - detention (current) use of insulin Code(s): E11.9 - Type 2 diabetes mellitus without complications Status: Chronic Assessment and Plan: * Blood sugars ranging 201-260 * Hgb A1C 8.4 on 05/26/2022 * repeat hemoglobin A1c ordered * Accu checks AC/HS * high-dose SSI ordered * hypoglycemic protocol in place * Diabetic diet ordered * hold Farxiga and mealtime replacement insulin * hold Lantus for now considering reported blood sugar a 53, will reassess in the morning 08/19- BS had been high today- 380's * -order regular insulin x 1 and recheck * - continue high dose SS and hypoglycemia [protocol * -will add lantus 10 units and monitor as had been stable * -if continues to be elevated- will add base meal insulin (7) Obstructive sleep apnea on CPAP: Code(s): G47.33 - Obstructive sleep apnea (adult) (pediatric); Z99.89 - Dependence on other enabling machines and devices Status: Chronic Assessment and Plan: * patient does not wear CPAP only wears 2L of oxygen at night only (8) Hypertension: Code(s): I10 - Essential (primary) hypertension Status: Chronic Assessment and Plan: * blood pressure ranging 114/72-136/72 * continue carvedilol (9) Hypothyroidism: Qualifiers: Hypothyroidism type: acquired Qualified Code(s): E03.9 - Hypothyroidism, unspecified Code(s): E03.9 - Hypothyroidism, unspecified Status: Chronic Assessment and Plan: * continue Synthroid * TSH ordered (10) Elevated d-dimer: Code(s): R79.89 - Other specified abnormal findings of blood chemistry Status: Acute Assessment and Plan: * D-dimer 0.79 * Will get V/Q scan to rule out PE considering her history of DVT and PE in the past and is not currently on any anticoagulation * see Acute resp failure plan * - will proceed with VQ on tuesday- ok with nephrology (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: Qualifiers: Diabetes mellitus terminal supervisor insulin use: with terminal supervisor use Qualified C ode(s): E11.21 - Type 2 diabetes mellitus with diabetic nephropathy; Z79.4 - detention (current) use of insulin Code(s): E11.21 - Type 2 diabetes mellitus with diabetic nephropathy Status: Acute Time Spent With Patient Time with patient: Greater than 35 minutes Subjective Date/time seen: 08/19/24 10:36 Interval history: Chief Complaint: weakness, low blood glucose Narrative retrieved from H/P: This is a 74-year-old female with a significant past medical history of who presented to the ER with generalized weakness and low blood sugar reading of 53. Patient states that she took her insulin that morning but did not eat anything. Patient reports the following history of presenting illness. Patient states that she has been feeling weak and tired along with a cough and congestion for about a month. She states that the other days she slapped pretty much all day which is unusual for her. She reports only taking [id number] Vicks for her cough and congestion. She states that her cough is dry and that she does not cough anything up. She denies any recent sick contacts. She is a resident over at [facility] and had a negative COVID test earlier in the week. She also reports dysuria and urinary frequency and had concerns for urinary tract infection. Patient denies any fever, nausea, vomiting, diarrhea, abdominal pain, chest pain, shortness a breath. On arrival to the emergency room the patient's oxygen saturation was low. Workup in the hospital included a chest x-ray which showed airspace opacities in the lower lung zones likely atelectasis. Initial labs revealed a hemoglobin of 11.9, white blood cell count was normal at 8.6, creatinine 2.90, EGFR 16, blood glucose ranging 201-260. A UA was obtained which showed cloudy urine appearance, 2+ urine glucose, positive nitrate, 2+ leukocytes, 51-100 urine WBC, 4+ bacteria. Respiratory panel was negative for influenza a and B, RSV, COVID. Blood and urine cultures were obtained and pending. EKG showed sinus rhythm with a rate of 66, QTC 423, D-dimer 0.79. Patient was given a DuoNeb, Rocephin, azithromycin while in the ED. 08/18 pt is seen and examined. V'Q scan is ordered. Echo is ordered. She is resting in bed, calm and comfortable, able to speak in full sentence. Denies pain. Reports some leg swelling. Overall feels better today. 08/19- nephrology was consulted- saw pt this am. Pt ate breakfast ok- no n/v/d. Overall feels ok- still on 4 l per nc- will try to wean her down if able today. Review of Systems Review of Systems: All systems reviewed & are unremarkable except as noted in HPI and below Constitutional: Constitutional: Reports as per HPI and Reports no additional constitutional complaints Eyes: Eyes: Reports as per HPI and Reports no additional eye complaints ENT: Reports system reviewed and no additional complaints, except as documented and Reports as per HPI Cardiovascular: Cardiovascular: Reports as per HPI and Reports no additional cardiovascular complaints Respiratory: Respiratory: Reports as per HPI and Reports no additional respiratory complaints Gastrointestinal: Gastrointestinal: Reports as per HPI and Reports no addition al gastrointestinal complaints Genitourinary: Genitourinary: Reports no additional female genitourinary complaints and Reports as per HPI Musculoskeletal: Musculoskeletal: Reports no additional musculoskeletal complaints and Reports as per HPI Integumentary/Breasts: Skin/Breast: Reports system reviewed and no additional complaints, except as docu and Reports as per HPI Neurologic: Reports system reviewed and no additional complaints, except as documented and Reports as per HPI Psychiatric: Psychiatric: Reports no additional psychiatric complaints and Reports as per HPI Exam Narrative: General: Week appearance, well nourished, pleasant Head: atraumatic, no encephalopathy Eyes: PERRLA, sclera clear ENT: moist mucous membranes, nasal passages clear Neck: supple, no JVD, no adenopathy, trachea midline Cardiac: Normal S1 and S2. No murmur, gallops or friction rubs, peripheral pulses intact. Respiratory: Lungs clear in the upper lobes, diminished in the bases, currently on room air, no adventitious lung sounds noted Gastrointestinal: soft, non-distended, non-tender, normoactive bowel sounds. : voiding without difficulty via purewick, clear and yellow. Reports dysuria and urinary frequency Extremities: moves all extremities fair, 1 to 2+ pitting edema to bilateral lower extremity Skin: clean, dry, intact. No wounds or lesions. Neuro: Alert and oriented x4, cranial nerves intact, no neuro deficits. Psych: normal mood, normal affect, interactive, calm Objective Data Vital Signs Vital Signs: Vital Signs - 24 hr 08/18/24 12:26 08/18/24 13:26 08/18/24 13:26 Temperature Pulse Rate 81 Respiratory Rate 20 Blood Pressure Pulse Oximetry 91 Oxygen Delivery Nasal Cannula Nasal Cannula Oxygen Flow Rate 2 2 Fraction of Inspired Oxygen 28 08/18/24 13:32 08/18/24 13:37 08/18/24 13:40 Temperature Pulse Rate 75 Respiratory Rate 20 Blood Pressure Pulse Oximetry 89 L 93 Oxygen Delivery Nasal Cannula Nasal Cannula Oxygen Flow Rate 4 4 Fraction of Inspired Oxygen 08/18/24 14:00 08/18/24 14:49 08/18/24 16:30 Temperature 97.7 F Pulse Rate 82 Respiratory Rate 18 Blood Pressure 121/62 144/69 H Pulse Oximetry 93 Oxygen Delivery Nasal Cannula Oxygen Flow Rate 4 Fraction of Inspired Oxygen 08/18/24 20:04 08/18/24 20:07 08/18/24 20:11 Temperature Pulse Rate 82 82 78 Respiratory Rate 20 20 Blood Pressure Pulse Oximetry 92 Oxygen Delivery Nasal Cannula Oxygen Flow Rate 3 Fraction of Inspired Oxygen 32 08/18/24 20:50 08/18/24 21:36 08/18/24 20:00 Temperature 98.2 F Pulse Rate 84 84 Respiratory Rate 18 Blood Pressure 149/68 H Pulse Oximetry 94 94 Oxygen Delivery Nasal Cannula Oxygen Flow Rate 4 Fraction of Inspired Oxygen 08/19/24 06:00 08/19/24 07:32 08/19/24 07:32 Temperature 98.7 F Pulse Rate 95 84 Respiratory Rate 20 20 Blood Pressure 138/73 Pulse Oximetry 93 92 Oxygen Delivery Nasal Cannula Oxygen Flow Rate 4 Fraction of Inspired Oxygen 36 08/19/24 08:55 Temperature Pulse Rate 73 Respiratory Rate Blood Pressure Pulse Oximetry Oxygen Delivery Oxygen Flow Rate Fraction of Inspired Oxygen Intake/Output Intake/Output: Intake & Output 08/16/24 08/17/24 08/18/24 08/19/24 23:59 23:59 23:59 23:59 Intake Total 300 2070 1220 Output Total 200 1500 2400 Balance 100 570 -1180 Meds/Results Medications: Active Medications Generic Name Dose Route Start Last Admin Trade Name Freq PRN Reason Stop Dose Admin Acetaminophen 650 mg 08/17/24 16:39 08/18/24 12:20 Acetaminophen 325 Mg Tablet PO 650 mg Q4H PRN Administration Mild Pain (1-3) or Fever Hydrocodone Bitart/Acetaminophen 1 tab 08/18/24 14:16 08/18/24 21:39 Hydrocodone/Acetaminophen (*Crx) 5-325 Mg Tablet PO 1 tab Q4H PRN Administration Pain Rated 4-6 Albuterol/Ipratropium 3 ml 08/17/24 20:00 08/19/24 07:32 Ipratropium 0.5 Mg/Albuterol Sulfate 2.5 Mg Ampul.Neb 3 Ml INHALATION 3 ml Q6HRT KAELA Administration Allopurinol 300 mg 08/18/24 09:00 08/19/24 08:55 Allopurinol 300 Mg Tablet PO 300 mg DAILY KAELA Administration Amitriptyline HCl 10 mg 08/17/24 21:00 08/18/24 21:36 Amitriptyline Hcl 10 Mg Tablet PO 10 mg QHS KAELA Administration Aspirin 81 mg 08/18/24 09:00 08/19/24 09:00 Aspirin 81 Mg Enteric Tablet PO 81 mg QAM KAELA Administration Atorvastatin Calcium 10 mg 08/17/24 21:00 08/18/24 21:35 Atorvastatin 10 Mg Tablet PO 10 mg HS KAELA Administration Azithromycin 500 mg 08/18/24 12:00 08/18/24 12:21 Azithromycin 250 Mg Tablet PO 500 mg DAILY@1200 KAELA Administration Benzonatate 100 mg 08/17/24 20:42 Benzonatate 100 Mg Capsule PO TID PRN Cough Carvedilol 25 mg 08/18/24 09:00 08/19/24 08:55 Carvedilol 25 Mg Tablet PO 25 mg Q12HR KAELA Administration Dextrose 12.5 gm 08/17/24 17:18 Dextrose 50% 25 Gm/50 Ml Syringe IV PUSH PRN PRN Hypoglycemia Protocol Enoxaparin Sodium 30 mg 08/18/24 09:00 08/19/24 09:00 Enoxaparin 30 Mg/0.3 Ml Syringe SUB-Q 30 mg DAILY KAELA Administration Escitalopram Oxalate 20 mg 08/18/24 09:00 08/19/24 08:54 Escitalopram Oxalate 10 Mg Tablet PO 20 mg DAILY KAELA Administration Fluticasone Propionate 2 spray 08/18/24 09:00 08/19/24 09:01 Fluticasone Propionate 0.05% Na Spr 16 Gm Btl (*Bkc) NASAL 2 spray DAILY KAELA Administration Furosemide 40 mg 08/18/24 09:00 Furosemide Inj 40 Mg/4 Ml Vial IV PUSH BID KAELA Gabapentin 300 mg 08/17/24 21:00 08/18/24 21:36 Gabapentin 300 Mg Capsule PO 300 mg QHS KAELA Administration Glucagon 1 mg 08/17/24 17:18 Glucagon For Inj 1 Mg Vial IM PRN PRN Hypoglycemia Protocol Glucose 15 gm 08/17/24 17:18 Glucose Oral Gel 15 Gm Of Glucse In 37.5 Gm Tube PO PRN PRN Hypoglycemia Protocol Ceftriaxone Sodium 1 gm in 50 mls @ 100 mls/hr 08/18/24 09:00 08/19/24 08:53 Rocephin 1 Gm/Ns 50 Ml IVPB 100 mls/hr Q24H KAELA Administration Dextrose 1,000 mls @ 100 mls/hr 08/17/24 17:18 Dextrose 5% 1,000 Ml IVPB PRN PRN Hypoglycemia Protocol Insulin Aspart 4 - 8 units 08/18/24 08:00 08/19/24 09:03 Insulin Aspart (*Bkc) 100 Units/Ml SUB-Q 6 units TIDWM KAELA Administration Protocol Insulin Aspart 2 - 4 units 08/17/24 21:00 08/18/24 21:35 Insulin Aspart (*Bkc) 100 Units/Ml SUB-Q 2 units HS KAELA Administration Protocol Levothyroxine Sodium 50 mcg 08/18/24 06:30 08/19/24 06:03 Levothyroxine Sodium 50 Mcg Tablet PO 50 mcg DAILY@0630 KAELA Administration Ondansetron HCl 4 mg 08/17/24 17:17 Ondansetron Inj 4 Mg/2 Ml Vial IV PUSH Q6H PRN Nausea And Vomiting Pantoprazole Sodium 40 mg 08/18/24 09:00 08/19/24 08:55 Pantoprazole 40 Mg Tablet PO 40 mg QAM KAELA Administration Perflutren Lipid Microsphere 0 ml 08/17/24 17:30 Perflutren Lipid Microspheres 1.5 Ml Vial Diluted To 10 Ml Total Volume IV PUSH 08/20/24 17:30 ONCE PRN adequate visualization Protocol Sodium Chloride 2 spray 08/17/24 20:42 Saline 0.65% Sah Soln 44 Ml Btl NASAL QID PRN nasal congestion/dryness Vitamin D 2,000 units 08/18/24 09:00 08/19/24 08:55 Cholecalciferol 1,000 Units Tablet PO 2,000 units DAILY KAELA Administration Radiology Results: ITS Impressions Chest X-Ray 08/17/24 13:11 IMPRESSION: 1. Airspace opacities in the lower lung zones, likely atelectasis. Shoulder X-Ray 08/18/24 15:56 IMPRESSION: Osteopenia Labs Labs: Laboratory Results - last 24 hr 08/18/24 08/18/24 08/18/24 12:04 15:28 15:28 WBC RBC Hgb Hct MCV MCH MCHC RDW Plt Count MPV Immature Gran % (Auto) Neut % (Auto) Lymph % (Auto) Donley % (Auto) Eos % (Auto) Baso % (Auto) Lymph # (Auto) Donley # (Auto) Eos # (Auto) Baso # (Auto) Abs Immat Gran (auto) Absolute Neuts (auto) Absolute Nucleated RBC Nucleated RBC % Sodium Potassium Chloride Carbon Dioxide Anion Gap BUN Creatinine Estim Creat Clear Calc Estimated GFR Glucose POC Capillary Glucose 203 H Uric Acid Calcium Total Bilirubin AST ALT Alkaline Phosphatase Total Protein Albumin U Random Total Protein 35 34 Ur Random Sodium 61 Ur Random Urea 562 Urine Creatinine 83.1 Protein/Creat Ratio 2 0.42 H 08/18/24 08/18/24 08/19/24 17:12 19:53 05:36 WBC RBC Hgb Hct MCV MCH MCHC RDW Plt Count MPV Immature Gran % (Auto) Neut % (Auto) Lymph % (Auto) Donley % (Auto) Eos % (Auto) Baso % (Auto) Lymph # (Auto) Donley # (Auto) Eos # (Auto) Baso # (Auto) Abs Immat Gran (auto) Absolute Neuts (auto) Absolute Nucleated RBC Nucleated RBC % Sodium Potassium Chloride Carbon Dioxide Anion Gap BUN Creatinine Estim Creat Clear Calc Estimated GFR Glucose POC Capillary Glucose 216 H 256 H Uric Acid 4.7 Calcium Total Bilirubin AST ALT Alkaline Phosphatase Total Protein Albumin U Random Total Protein Ur Random Sodium Ur Random Urea Urine Creatinine Protein/Creat Ratio 2 08/19/24 08/19/24 05:39 08:06 WBC 10.4 H RBC 4.41 Hgb 13.1 Hct 43.8 MCV 99.3 MCH 29.7 MCHC 29.9 L RDW 16.3 H Plt Count 243 MPV 9.7 Immature Gran % (Auto) 0.3 Neut % (Auto) 63.4 Lymph % (Auto) 24.3 Donley % (Auto) 7.1 Eos % (Auto) 4.3 Baso % (Auto) 0.6 Lymph # (Auto) 2.53 Donley # (Auto) 0.7 H Eos # (Auto) 0.5 H Baso # (Auto) 0.1 Abs Immat Gran (auto) 0.03 Absolute Neuts (auto) 6.6 Absolute Nucleated RBC 0.000 Nucleated RBC % 0.0 Sodium 137 Potassium 4.1 Chloride 96 L Carbon Dioxide 29 Anion Gap 12 BUN 59 H Creatinine 2.90 H Estim Creat Clear Calc 22 Estimated GFR 16 L Glucose 270 H POC Capillary Glucose 324 H Uric Acid Calcium 11.0 H Total Bilirubin 0.7 AST 17 ALT 12 Alkaline Phosphatase 131 H Total Protein 8.0 Albumin 4.3 U Random Total Protein Ur Random Sodium Ur Random Urea Urine Creatinine Protein/Creat Ratio 2 Quality VTE Prophylaxis VTE prophylaxis: pharmacologic ordered
[2024-08-19 10:43] LABS: Parathyroid Intact 136.1 pg/mL (14.5-75.2)
[2024-08-19 10:46] LABS: Vitamin D 25 Hydroxy 19.4 ng/mL
[2024-08-19 11:40] LABS: Glucose Point of Care 403 mg/dl (65-105)
[2024-08-19 11:40] LABS: Glucose Point of Care 411 mg/dl (65-105)
[2024-08-19] MEDS: AZITHROMYCIN 250 MG TABLET 500 MG PO (12:09)
[2024-08-19] MEDS: INSULIN HUMAN REGULAR (*BKC) 100 UNITS/ML SUB-Q (12:52)
[2024-08-19 15:41] LABS: Glucose Point of Care 292 mg/dl (65-105)
[2024-08-19 16:49] LABS: Glucose Point of Care 251 mg/dl (65-105)
[2024-08-19 19:46] LABS: Glucose Point of Care 251 mg/dl (65-105)
[2024-08-19] MEDS: INSULIN GLARGINE (*BKC) 100 UNITS/ML 10 UNITS SUB-Q (20:35)
[2024-08-19] MEDS: GABAPENTIN 300 MG CAPSULE PO (20:35)
[2024-08-19] MEDS: ATORVASTATIN 10 MG TABLET PO (20:35)
[2024-08-19] MEDS: AMITRIPTYLINE HCL 10 MG TABLET PO (20:35)
[2024-08-20] VITALS (13 sets, daily range): BP systolic 132–160; BP diastolic 73–84; PULSE 79–105; RESP 18–24; TEMP 36.7–37; O2SAT 92–96; BMI 10.0
[2024-08-20] MEDS: IPRATROPIUM 0.5 MG/ALBUTEROL SULFATE 2.5 MG AMPUL.NEB 3 ML INHALATION ×4 (02:45→19:56)
[2024-08-20 05:44] LABS: Basophils Absolute Auto 0.1 K/mm3 (0.0-0.1); Basophils Percent Auto 0.4 % (0.2-1.2); Eosinophils Absolute Auto 0.4 K/mm3 (0-0.3); Eosinophils Percent Auto 3.8 % (0-4.4); Hematocrit 40.9 % (37.0-47.0); Hemoglobin 11.9 g/dL (12.0-15.0); Immature Granulocyte Absolute 0.04 K/mm3 (0.00-0.031); Immature Granulocyte Percent A 0.4 % (0-0.5); Lymphocytes Percent Auto 14.9 % (18.3-44.2); Mean Corpuscular HGB Conc 29.1 g/dl (32-36); Mean Corpuscular Hemoglobin 29.3 pg (26-34); Mean Corpuscular Volume 100.7 fl (80-100); Mean Platelet Volume 9.3 fl (7.4-10.4); Monocytes Absolute Auto 0.8 K/mm3 (0.1-0.6); Monocytes Percent Auto 7.3 % (2.6-8.5); Neutrophils Absolute Auto 8.4 K/mm3 (1.3-6.7); Neutrophils Percent Auto 73.2 % (45.5-73.1); Platelet Count Result 222 k/mm3 (150-375); Red Blood Count 4.06 M/mm3 (4.2-5.4); Red Cell Distribution Width 16.1 % (11.5-14.5); White Blood Count 11.4 K/mm3 (4.5-10.0)
[2024-08-20 05:55] LABS: Alanine Aminotransferase 10 U/L (6-35); Albumin Level 3.8 g/dL (3.5-5.1); Alkaline Phosphatase 109 U/L (38-126); Anion Gap 9 mmol/L (4-12); Aspartate Amino Transferase 18 U/L (14-36); Bilirubin,Total 0.7 mg/dL (0.2-1.3); Blood Urea Nitrogen 61 mg/dL (7-17); Calcium 10.4 mg/dL (8.4-10.2); Carbon Dioxide 28 mmol/L (22-30); Chloride 97 mmol/L (98-107); Estimated CRCL calculation 24 ml/min; Estimated Glomerular Filt Rate 17; Glucose 274 mg/dL (65-110); Potassium 4.4 mmol/L (3.4-5.0); Sodium 134 mmol/L (137-145)
[2024-08-20] MEDS: LEVOTHYROXINE SODIUM 50 MCG TABLET PO (06:15)
[2024-08-20 06:32] LABS: Anisocytosis 1+; Platelet Estimate Adequate (Adequate); Schistocytes None Seen
[2024-08-20 08:10] LABS: Glucose Point of Care 295 mg/dl (65-105)
--- NOTE | 2024-08-20 08:27 | P.PNIM_ITS ---
Progress Note: A&P Assessment and Plan (1) Acute respiratory failure with hypoxia: Code(s): J96.01 - Acute respiratory failure with hypoxia Status: Acute Assessment and Plan: * patient is not on any baseline oxygen during the day however is requiring 2-4 L nasal cannula now due to hypoxia in the ER with oxygen saturation of 87% on room air. 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 However she does not take any chronic anticoagulation * will also check troponin * EKG showing sinus rhythm with a rate of 66, QTC 423 08/18- V/Q scan ordered unable to do V/Q scan over the weekend. Cr is still high, cr cl too low/gfr low- risk for worsening of kidney functions- discussed with pt. -WELL's criteria for PE- 1.5%- low suspicion for PE- so will observe for now and hold off on scans 08/19- stable- no worsening symptoms-continue regimen and monitor Discussed with Dr Bergman- ok to do VQ scan-will proceed then to r/o PE 08/20- hr slightly elevated, rr elevated- wbc slightly increased. Switch antibiotics to cefepime- head CT, lactic acid, ABG. QTC 423 VQ scan - done- Low probability for pulmonary embolism. - switched to cefepime IV (2) CHF (congestive heart failure), NYHA class I: Qualifiers: Congestive heart failure type: unspecified Qualified Code(s): I50.9 - Heart failure, unspecified Code(s): I50.9 - Heart failure, unspecified Status: Acute Assessment and Plan: * echocardiogram from 12/30/2021 showed normal LV systolic function with an estimated EF of 65-70%, grade 1 diastolic dysfunction. * Chest x-ray reporting airspace opacities in the lower lung zones likely atelectasis. After reviewing the chest x-ray myself and comparing it to a previous chest x-ray patient does appear to have pulmonary edema * proBNP ordered * a one time dose of 40 mg of IV Lasix ordered-- Will hold off on further diuresis considering renal function * consider nephrology consult if requiring further diuresis * will obtain another echocardiogram in the morning- EF 65-70% * continuous telemetry monitoring ordered (3) UTI (urinary tract infection): Qualifiers: Hematuria presence: without hematuria Urinary tract infection type: site unspecified Qualified Code(s): N39.0 - Urinary tract infection, site not specified Code(s): N39.0 - Urinary tract infection, site not specified Status: Acute Assessment and Plan: * UA revealed cloudy urine appearance, 2+ urine glucose, positive nitrate, 2+ leukocyte, 51-100 urine WBC, 4+ urine bacteria. * Urine and blood culture was obtained and pending * patient was started on Rocephin * urine culture from 06/23/2023 revealed E coli which was essentially pansensitive except for Bactrim * switched to cefepipme IV (4) Chronic kidney disease, stage IV (severe): Code(s): N18.4 - Chronic kidney disease, stage 4 (severe) Status: Chronic Assessment and Plan: * creatinine 2.9, EGFR 16 * baseline creatinine 2.10-2.60, baseline EGFR 18-23 * continue to trend * avoid nephrotoxic medications or testing with IV contrast * - nephrology consulted- appreciate recommendations (5) Hyperlipidemia: Qualifiers: Hyperlipidemia type: other hyperlipidemia Qualified Code(s): E78.49 - Other hyperlipidemia Code(s): E78.5 - Hyperlipidemia, unspecified Status: Chronic Assessment and Plan: * continue atorvastatin and aspirin (6) Type 2 diabetes mellitus: Qualifiers: Chronic kidney disease stage: stage 3 (moderate) Chronic kidney disease stage 3 subtype: stage 3b (GFR 30-44) Diabetes mellitus complication detail: with chronic kidney disease Diabetes mellitus complication status: with kidney complications 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 Qualified Code(s): E11.22 - Type 2 diabetes mellitus with diabetic chronic kidney disease; N18.32 - Chronic kidney disease, stage 3b; Z79.4 - halfway (current) use of insulin Code(s): E11.9 - Type 2 diabetes mellitus without complications Status: Chronic Assessment and Plan: * Blood sugars ranging 201-260 * Hgb A1C 8.4 on 05/26/2022 * repeat hemoglobin A1c ordered * Accu checks AC/HS * high-dose SSI ordered * hypoglycemic protocol in place * Diabetic diet ordered * hold Farxiga and mealtime replacement insulin * hold Lantus for now considering reported blood sugar a 53, will reassess in the morning 08/19- BS had been high today- 380's * -order regular insulin x 1 and recheck * - continue high dose SS and hypoglycemia [protocol * -will add lantus 10 units and monitor as had been stable * -if continues to be elevated- will add base meal insulin (7) Obstructive sleep apnea on CPAP: Code(s): G47.33 - Obstructive sleep apnea (adult) (pediatric); Z99.89 - Dependence on other enabling machines and devices Status: Chronic Assessment and Plan: * patient does not wear CPAP only wears 2L of oxygen at night only (8) Hypertension: Code(s): I10 - Essential (primary) hypertension Status: Chronic Assessment and Plan: * blood pressure ranging 114/72-136/72 * continue carvedilol (9) Hypothyroidism: Qualifiers: Hypothyroidism type: acquired Qualified Code(s): E03.9 - Hypothyroidi sm, unspecified Code(s): E03.9 - Hypothyroidism, unspecified Status: Chronic Assessment and Plan: * continue Synthroid * TSH ordered (10) Elevated d-dimer: Code(s): R79.89 - Other specified abnormal findings of blood chemistry Status: Acute Assessment and Plan: * D-dimer 0.79 * Will get V/Q scan to rule out PE considering her history of DVT and PE in the past and is not currently on any anticoagulation * see Acute resp failure plan * - will proceed with VQ on tuesday- Low probability for pulmonary embolism. 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 lactic acid negative will obtain abg antibiotic escalated to cefepime continue to marybeth monson updated Subjective Date/time seen: 08/20/24 08:27 Interval history: Chief Complaint: weakness, low blood glucose Narrative retrieved from H/P: This is a 74-year-old female with a significant past medical history of who presented to the ER with generalized weakness and low blood sugar reading of 53. Patient states that she took her insulin that morning but did not eat anything. Patient reports the following history of presenting illness. Patient states that she has been feeling weak and tired along with a cough and congestion for about a month. She states that the other days she slapped pretty much all day which is unusual for her. She reports only taking [id number] Vicks for her cough and congestion. She states that her cough is dry and that she does not cough anything up. She denies any recent sick contacts. She is a resident over at [facility] and had a negative COVID test earlier in the week. She also reports dysuria and urinary frequency and had concerns for urinary tract infection. Patient denies any fever, nausea, vomiting, diarrhea, abdominal pain, chest pain, shortness a breath. On arrival to the emergency room the patient's oxygen saturation was low. Workup in the hospital included a chest x-ray which showed airspace opacities in the lower lung zones likely atelectasis. Initial labs revealed a hemoglobin of 11.9, white blood cell count was normal at 8.6, creatinine 2.90, EGFR 16, blood glucose ranging 201-260. A UA was obtained which showed cloudy urine appearance, 2+ urine glucose, positive nitrate, 2+ leukocytes, 51-100 urine WBC, 4+ bacteria. Respiratory panel was negative for influenza a and B, RSV, COVID. Blood and urine cultures were obtained and pending. EKG showed sinus rhythm with a rate of 66, QTC 423, D-dimer 0.79. Patient was given a DuoNeb, Rocephin, azithromycin while in the ED. 08/18 pt is seen and examined. V'Q scan is ordered. Echo is ordered. She is resting in bed, calm and comfortable, able to speak in full sentence. Denies pain. Reports some leg swelling. Overall feels better today. 08/19- nephrology was consulted- saw pt this am. Pt ate breakfast ok- no n/v/d. Overall feels ok- still on 4 l per nc- will try to wean her down if able today. 08/20- somewhat confused today, low grade fever per RN report, slightly tachy and tachypnic. Will do head ct, VQ scan, switch antibiotics to cefepime and azithro- abd, lactic, blood cultures. Beverly, daughter, was called and updates provided. Review of Systems Review of Systems: All systems reviewed & are unremarkable except as noted in HPI and below Constitutional: Constitutional: Reports as per HPI and Reports no additional constitutional complaints Eyes: Eyes: Reports as per HPI and Reports no additional eye complaints ENT: Reports system reviewed and no additional complaints, except as documented and Reports as per HPI Cardiovascular: Cardiovascular: Reports as per HPI and Reports no additional cardiovascular complaints Respiratory: Respiratory: Reports as per HPI and Reports no additional respiratory complaints Gastrointestinal: Gastrointestinal: Reports as per HPI and Reports no additional gastrointestinal complaints Genitourinary: Genitourinary: Reports no additional female genitourinary complaints and Reports as per HPI Musculoskeletal: Musculoskeletal: Reports no additional musculoskeletal complaints and Reports as per HPI Integumentary/Breasts: Skin/Breast: Reports system reviewed and no additional complaints, except as docu and Reports as per HPI Neurologic: Reports system reviewed and no additional complaints, except as documented and Reports as per HPI Psychiatric: Psychiatric: Reports no additional psychiatric complaints and Reports as per HPI Exam Narrative: General: Week appearance, well nourished, pleasant Head: atraumatic, no encephalopathy Eyes: PERRLA, sclera clear ENT: moist mucous membranes, nasal passages clear Neck: supple, no JVD, no adenopathy, trachea midline Cardiac: Normal S1 and S2. No murmur, gallops or friction rubs, peripheral pulses intact. Respiratory: Lungs clear in the upper lobes, diminished in the bases, currently on room air, no adventitious lung sounds noted Gastrointestinal: soft, non-distended, non-tender, normoactive bowel sounds. : voiding without difficulty via purewick, clear and yellow. Reports dysuria and urinary frequency Extremities: moves all extremities fair, 1 to 2+ pitting edema to bilateral lower extremity Skin: clean, dry, intact. No wounds or lesions. Neuro: Alert and oriented x4, cranial nerves intact, no neuro deficits. Psych: normal mood, normal affect, interactive, calm Objective Data Vital Signs Vital Signs: Vital Signs - 24 hr 08/19/24 08:55 08/19/24 13:44 08/19/24 13:44 Temperature Pulse Rate 73 89 Respiratory Rate 20 Blood Pressure Pulse Oximetry 93 Oxygen Delivery Nasal Cannula Oxygen Flow Rate 4 08/19/24 13:54 08/19/24 14:00 08/19/24 08:40 Temperature 97.7 F Pulse Rate 84 78 Respiratory Rate 20 18 Blood Pressure 119/54 L Pulse Oximetry 93 93 Oxygen Delivery Nasal Cannula Oxygen Flow Rate 4 08/19/24 20:14 08/19/24 20:15 08/19/24 20:22 Temperature Pulse Rate 80 83 Respiratory Rate 20 20 Blood Pressure Pulse Oximetry 91 Oxygen Delivery Nasal Cannula Oxygen Flow Rate 4 08/19/24 20:35 08/19/24 20:00 08/19/24 21:32 Temperature 98.1 F Pulse Rate 83 79 Respiratory Rate 18 Blood Pressure 135/64 Pulse Oximetry 91 93 Oxygen Delivery Nasal Cannula Oxygen Flow Rate 4 08/20/24 02:45 08/20/24 06:00 08/20/24 07:57 Temperature 98.6 F Pulse Rate 79 94 Respiratory Rate 22 H 18 Blood Pressure 157/80 H Pulse Oximetry 92 93 Oxygen Delivery Nasal Cannula Oxygen Flow Rate 4 08/20/24 07:57 08/20/24 08:08 Temperature Pulse Rate 102 H 105 H Respiratory Rate 24 H 24 H Blood Pressure Pulse Oximetry Oxygen Delivery Oxygen Flow Rate Intake/Output Intake/Output: Intake & Output 08/17/24 08/18/24 08/19/24 08/20/24 23:59 23:59 23:59 23:59 Intake Total 300 2070 2060 1280 Output Total 200 1500 2550 800 Balance 100 570 -490 480 Meds/Results Medications: Active Medications Generic Name Dose Route Start Last Admin Trade Name Freq PRN Reason Stop Dose Admin Acetaminophen 650 mg 08/17/24 16:39 08/18/24 12:20 Acetaminophen 325 Mg Tablet PO 650 mg Q4H PRN Administration Mild Pain (1-3) or Fever Hydrocodone Bitart/Acetaminophen 1 tab 08/18/24 14:16 08/18/24 21:39 Hydrocodone/Acetaminophen (*Crx) 5-325 Mg Tablet PO 1 tab Q4H PRN Administration Pain Rated 4-6 Albuterol/Ipratropium 3 ml 08/17/24 20:00 08/20/24 07:55 Ipratropium 0.5 Mg/Albuterol Sulfate 2.5 Mg Ampul.Neb 3 Ml INHALATION 3 ml Q6HRT KAELA Administration Allopurinol 300 mg 08/18/24 09:00 08/19/24 08:55 Allopurinol 300 Mg Tablet PO 300 mg DAILY KAELA Administration Amitriptyline HCl 10 mg 08/17/24 21:00 08/19/24 20:35 Amitriptyline Hcl 10 Mg Tablet PO 10 mg QHS KAELA Administration Aspirin 81 mg 08/18/24 09:00 08/19/24 09:00 Aspirin 81 Mg Enteric Tablet PO 81 mg QAM KAELA Administration Atorvastatin Calcium 10 mg 08/17/24 21:00 08/19/24 20:35 Atorvastatin 10 Mg Tablet PO 10 mg HS KAELA Administration Azithromycin 500 mg 08/18/24 12:00 08/19/24 12:09 Azithromycin 250 Mg Tablet PO 500 mg DAILY@1200 KAELA Administration Benzonatate 100 mg 08/17/24 20:42 Benzonatate 100 Mg Capsule PO TID PRN Cough Carvedilol 25 mg 08/18/24 09:00 08/19/24 20:35 Carvedilol 25 Mg Tablet PO 25 mg Q12HR KAELA Administration Dextrose 12.5 gm 08/17/24 17:18 Dextrose 50% 25 Gm/50 Ml Syringe IV PUSH PRN PRN Hypoglycemia Protocol Enoxaparin Sodium 30 mg 08/18/24 09:00 08/19/24 09:00 Enoxaparin 30 Mg/0.3 Ml Syringe SUB-Q 30 mg DAILY KAELA Administration Escitalopram Oxalate 20 mg 08/18/24 09:00 08/19/24 08:54 Escitalopram Oxalate 10 Mg Tablet PO 20 mg DAILY KAELA Administration Fluticasone Propionate 2 spray 08/18/24 09:00 08/19/24 09:01 Fluticasone Propionate 0.05% Na Spr 16 Gm Btl (*Bkc) NASAL 2 spray DAILY KAELA Administration Furosemide 40 mg 08/18/24 09:00 Furosemide Inj 40 Mg/4 Ml Vial IV PUSH BID KAELA Gabapentin 300 mg 08/17/24 21:00 08/19/24 20:35 Gabapentin 300 Mg Capsule PO 300 mg QHS KAELA Administration Glucagon 1 mg 08/17/24 17:18 Glucagon For Inj 1 Mg Vial IM PRN PRN Hypoglycemia Protocol Glucose 15 gm 08/17/24 17:18 Glucose Oral Gel 15 Gm Of Glucse In 37.5 Gm Tube PO PRN PRN Hypoglycemia Protocol Ceftriaxone Sodium 1 gm in 50 mls @ 100 mls/hr 08/18/24 09:00 08/19/24 08:53 Rocephin 1 Gm/Ns 50 Ml IVPB 100 mls/hr Q24H KAELA Administration Dextrose 1,000 mls @ 100 mls/hr 08/17/24 17:18 Dextrose 5% 1,000 Ml IVPB PRN PRN Hypoglycemia Protocol Insulin Aspart 4 - 8 units 08/18/24 08:00 08/19/24 17:06 Insulin Aspart (*Bkc) 100 Units/Ml SUB-Q 5 units TIDWM KAELA Administration Protocol Insulin Aspart 2 - 4 units 08/17/24 21:00 08/19/24 20:35 Insulin Aspart (*Bkc) 100 Units/Ml SUB-Q 2 units HS KAELA Administration Protocol Insulin Glargine 10 units 08/19/24 21:00 08/19/24 20:35 Insulin Glargine (*Bkc) 100 Units/Ml SUB-Q 10 units HS KAELA Administration Levothyroxine Sodium 50 mcg 08/18/24 06:30 08/20/24 06:15 Levothyroxine Sodium 50 Mcg Tablet PO 50 mcg DAILY@0630 KAELA Administration Ondansetron HCl 4 mg 08/17/24 17:17 Ondansetron Inj 4 Mg/2 Ml Vial IV PUSH Q6H PRN Nausea And Vomiting Pantoprazole Sodium 40 mg 08/18/24 09:00 08/19/24 08:55 Pantoprazole 40 Mg Tablet PO 40 mg QAM KAELA Administration Perflutren Lipid Microsphere 0 ml 08/17/24 17:30 Perflutren Lipid Microspheres 1.5 Ml Vial Diluted To 10 Ml Total Volume IV PUSH 08/20/24 17:30 ONCE PRN adequate visualization Protocol Sodium Chloride 2 spray 08/17/24 20:42 Saline 0.65% Sha Soln 44 Ml Btl NASAL QID PRN nasal congestion/dryness Vitamin D 2,000 units 08/18/24 09:00 08/19/24 08:55 Cholecalciferol 1,000 Units Tablet PO 2,000 units DAILY KAELA Administration Radiology Results: ITS Impressions Chest X-Ray 08/17/24 13:11 IMPRESSION: 1. Airspace opacities in the lower lung zones, likely atelectasis. Shoulder X-Ray 08/18/24 15:56 IMPRESSION: Osteopenia Labs Labs: Laboratory Results - last 24 hr 08/19/24 08/19/24 08/19/24 05:36 11:31 11:37 WBC RBC Hgb Hct MCV MCH MCHC RDW Plt Count MPV Immature Gran % (Auto) Neut % (Auto) Lymph % (Auto) [place] % (Auto) Eos % (Auto) Baso % (Auto) Lymph # (Auto) [place] # (Auto) Eos # (Auto) Baso # (Auto) Abs Immat Gran (auto) Absolute Neuts (auto) Absolute Nucleated RBC Nucleated RBC % Platelet Estimate Anisocytosis Schistocytes Sodium Potassium Chloride Carbon Dioxide Anion Gap BUN Creatinine Estim Creat Clear Calc Estimated GFR Glucose POC Capillary Glucose 411 H 403 H Uric Acid 4.7 Calcium Phosphorus Total Bilirubin AST ALT Alkaline Phosphatase Total Protein Albumin Vitamin D 25-Hydroxy 19.4 PTH Intact 136.1 H 08/19/24 08/19/24 08/19/24 15:36 16:46 19:22 WBC RBC Hgb Hct MCV MCH MCHC RDW Plt Count MPV Immature Gran % (Auto) Neut % (Auto) Lymph % (Auto) [place] % (Auto) Eos % (Auto) Baso % (Auto) Lymph # (Auto) [place] # (Auto) Eos # (Auto) Baso # (Auto) Abs Immat Gran (auto) Absolute Neuts (auto) Absolute Nucleated RBC Nucleated RBC % Platelet Estimate Anisocytosis Schistocytes Sodium Potassium Chloride Carbon Dioxide Anion Gap BUN Creatinine Estim Creat Clear Calc Estimated GFR Glucose POC Capillary Glucose 292 H 251 H 251 H Uric Acid Calcium Phosphorus Total Bilirubin AST ALT Alkaline Phosphatase Total Protein Albumin Vitamin D 25-Hydroxy PTH Intact 08/20/24 08/20/24 05:19 07:57 WBC 11.4 H RBC 4.06 L Hgb 11.9 L Hct 40.9 MCV 100.7 H MCH 29.3 MCHC 29.1 L RDW 16.1 H Plt Count 222 MPV 9.3 Immature Gran % (Auto) 0.4 Neut % (Auto) 73.2 H Lymph % (Auto) 14.9 L [place] % (Auto) 7.3 Eos % (Auto) 3.8 Baso % (Auto) 0.4 Lymph # (Auto) 1.70 [place] # (Auto) 0.8 H Eos # (Auto) 0.4 H Baso # (Auto) 0.1 Abs Immat Gran (auto) 0.04 H Absolute Neuts (auto) 8.4 H Absolute Nucleated RBC 0.000 Nucleated RBC % 0.0 Platelet Estimate Adequate Anisocytosis 1+ Schistocytes None seen Sodium 134 L Potassium 4.4 Chloride 97 L Carbon Dioxide 28 Anion Gap 9 BUN 61 H Creatinine 2.70 H Estim Creat Clear Calc 24 Estimated GFR 17 L Glucose 274 H POC Capillary Glucose 295 H Uric Acid Calcium 10.4 H Phosphorus 4.0 Total Bilirubin 0.7 AST 18 ALT 10 Alkaline Phosphatase 109 Total Protein 7.0 Albumin 3.8 Vitamin D 25-Hydroxy PTH Intact Quality VTE Prophylaxis VTE prophylaxis: pharmacologic ordered
[2024-08-20] MEDS: INSULIN ASPART (*BKC) 100 UNITS/ML SUB-Q ×6 (08:59→20:07)
[2024-08-20] MEDS: FLUTICASONE PROPIONATE 0.05% NA SPR 16 GM BTL (*BKC) 2 SPRAY NASAL (09:01)
[2024-08-20] MEDS: CHOLECALCIFEROL 1,000 UNITS TABLET 2000 UNITS PO (09:02)
[2024-08-20] MEDS: ENOXAPARIN 30 MG/0.3 ML SYRINGE SUB-Q (09:02)
[2024-08-20] MEDS: ASPIRIN 81 MG ENTERIC TABLET PO (09:02)
[2024-08-20] MEDS: PANTOPRAZOLE 40 MG TABLET PO (09:02)
[2024-08-20] MEDS: ESCITALOPRAM OXALATE 10 MG TABLET 20 MG PO (09:02)
[2024-08-20] MEDS: allopurinoL 300 MG TABLET PO (09:03)
[2024-08-20] MEDS: carvediloL 25 MG TABLET PO (09:03)
--- NOTE | 2024-08-20 09:27 | PCOTNOTE ---
Patient unavailable to be seen at this time due to having a decline in status, Patient is being taken down for a CT scan. Will check in with RN at a later time.
--- NOTE | 2024-08-20 10:10 | P.PNNP_ITS ---
Progress Note: A&P Assessment and Plan (1) Chronic kidney disease, stage 4 (severe): Code(s): N18.4 - Chronic kidney disease, stage 4 (severe) Status: Chronic Assessment and Plan: * baseline creatinine normally runs ~ 2.1 - 2.6mg/dl but has been as high as 2.9mg/dl * presumably secondary to hypertension, diabetes, vascular disease, and age- related change * follows with Dr. Hester for CKD management (2) Confusion: Code(s): R41.0 - Disorientation, unspecified Status: Acute Assessment and Plan: * as noted on admission * work-up and evaluation in progress * sedative medications on hold * follow-up on pending tests * continue supportive therapy (3) Hypercalcemia: Code(s): E83.52 - Hypercalcemia Status: Acute Assessment and Plan: * known history * presumably due to known history of hyperparathyroidism * was following with Endocrinology * was previously on Sensipar (but this was stopped a few months ago due to hypocalcemia) * follow trend (4) UTI (urinary tract infection): Qualifiers: Urinary tract infection type: site unspecified Hematuria presence: without hematuria Qualified Code(s): N39.0 - Urinary tract infection, site not specified Code(s): N39.0 - Urinary tract infection, site not specified Status: Acute Assessment and Plan: * UA on admission suggestive * follow culture results * on antibiotics (5) Hypertension: Code(s): I10 - Essential (primary) hypertension Status: Chronic Assessment and Plan: * reasonable control at this time * follow trend of hemodynamics (6) Type 2 diabetes mellitus: Qualifiers: Chronic kidney disease stage: stage 3 (moderate) Chronic kidney disease stage 3 subtype: stage 3b (GFR 30-44) Diabetes mellitus complication detail: with chronic kidney disease Diabetes mellitus complication status: with kidney complications Diabetes mellitus retirement insulin use: with terminal operator use Qualified Code(s): E11.22 - Type 2 diabetes mellitus with diabetic chronic kidney disease; N18.32 - Chronic kidney disease, stage 3b; Z79.4 - snf (current) use of insulin Code(s): E11.9 - Type 2 diabetes mellitus without complications Status: Chronic Assessment and Plan: * follow accu-cheks * glycemic control per hospitalists Will continue to follow. Subjective Date/time seen: 08/20/24 10:10 Interval history: Follow-up for chronic kidney disease. Chart reviewed -- assuming care from Dr. Barnes; still remains a bit confused on my visit but does not appear to be in any distress; further imaging testing has been ordered; no issues or events overnight or earlier this morning. Exam Narrative: General: elderly female sitting up in bed in NAD Heart: normal S1 and S2; no rub Lungs: decreased breath sounds at bases Abdomen: soft, nontender, nondistended, positive bowel sounds Extremities: no cyanosis or clubbing; 1+ edema Skin: warm and dry Objective Data Vital Signs Vital Signs: Vital Signs - 24 hr 08/19/24 20:14 08/19/24 20:15 08/19/24 20:22 Temperature Pulse Rate 80 83 Respiratory Rate 20 20 Blood Pressure Pulse Oximetry 91 Oxygen Delivery Nasal Cannula Oxygen Flow Rate 4 08/19/24 20:35 08/19/24 20:00 08/19/24 21:32 Temperature 98.1 F Pulse Rate 83 79 Respiratory Rate 18 Blood Pressure 135/64 Pulse Oximetry 91 93 Oxygen Delivery Nasal Cannula Oxygen Flow Rate 4 08/20/24 02:45 08/20/24 06:00 08/20/24 07:57 Temperature 98.6 F Pulse Rate 79 94 Respiratory Rate 22 H 18 Blood Pressure 157/80 H Pulse Oximetry 92 93 Oxygen Delivery Nasal Cannula Oxygen Flow Rate 4 08/20/24 07:57 08/20/24 08:08 08/20/24 09:03 Temperature Pulse Rate 102 H 105 H 105 H Respiratory Rate 24 H 24 H Blood Pressure Pulse Oximetry Oxygen Delivery Oxygen Flow Rate 08/20/24 09:00 08/20/24 14:15 08/20/24 14:26 Temperature Pulse Rate 105 H 99 95 Respiratory Rate 20 20 Blood Pressure Pulse Oximetry 93 Oxygen Delivery Nasal Cannula Oxygen Flow Rate 4 08/20/24 14:26 Temperature 98.1 F Pulse Rate 102 H Respiratory Rate 18 Blood Pressure 160/84 H Pulse Oximetry 96 Oxygen Delivery Oxygen Flow Rate Intake/Output Intake/Output: Intake & Output 08/17/24 08/18/24 08/19/24 08/20/24 23:59 23:59 23:59 23:59 Intake Total 300 2070 2110 2000 Output Total 200 1500 2550 1600 Balance 100 570 -440 400 Meds/Results Medications: Active Medications Generic Name Dose Route Start Last Admin Trade Name Freq PRN Reason Stop Dose Admin Acetaminophen 650 mg 08/17/24 16:39 08/18/24 12:20 Acetaminophen 325 Mg Tablet PO 650 mg Q4H PRN Administration Mild Pain (1-3) or Fever Hydrocodone Bitart/Acetaminophen 1 tab 08/18/24 14:16 08/18/24 21:39 Hydrocodone/Acetaminophen (*Crx) 5-325 Mg Tablet PO 1 tab Q4H PRN Administration Pain Rated 4-6 Albuterol/Ipratropium 3 ml 08/17/24 20:00 08/20/24 14:15 Ipratropium 0.5 Mg/Albuterol Sulfate 2.5 Mg Ampul.Neb 3 Ml INHALATION 3 ml Q6HRT KAELA Administration Allopurinol 300 mg 08/18/24 09:00 08/20/24 09:03 Allopurinol 300 Mg Tablet PO 300 mg DAILY KAELA Administration Amitriptyline HCl 10 mg 08/17/24 21:00 08/19/24 20:35 Amitriptyline Hcl 10 Mg Tablet PO 10 mg QHS KAELA Administration Aspirin 81 mg 08/18/24 09:00 08/20/24 09:02 Aspirin 81 Mg Enteric Tablet PO 81 mg QAM KAELA Administration Atorvastatin Calcium 10 mg 08/17/24 21:00 08/19/24 20:35 Atorvastatin 10 Mg Tablet PO 10 mg HS KAELA Administration Azithromycin 500 mg 08/18/24 12:00 08/20/24 12:42 Azithromycin 250 Mg Tablet PO 08/21/24 12:01 500 mg DAILY@1200 KAELA Administration Benzonatate 100 mg 08/17/24 20:42 Benzonatate 100 Mg Capsule PO TID PRN Cough Dextrose 12.5 gm 08/17/24 17:18 Dextrose 50% 25 Gm/50 Ml Syringe IV PUSH PRN PRN Hypoglycemia Protocol Enoxaparin Sodium 30 mg 08/18/24 09:00 08/20/24 09:02 Enoxaparin 30 Mg/0.3 Ml Syringe SUB-Q 30 mg DAILY KAELA Administration Escitalopram Oxalate 20 mg 08/18/24 09:00 08/20/24 09:02 Escitalopram Oxalate 10 Mg Tablet PO 20 mg DAILY KAELA Administration Fluticasone Propionate 2 spray 08/18/24 09:00 08/20/24 09:01 Fluticasone Propionate 0.05% Na Spr 16 Gm Btl (*Bkc) NASAL 2 spray DAILY KAELA Administration Furosemide 40 mg 08/18/24 09:00 Furosemide Inj 40 Mg/4 Ml Vial IV PUSH BID KAELA Gabapentin 300 mg 08/17/24 21:00 08/19/24 20:35 Gabapentin 300 Mg Capsule PO 300 mg QHS KAELA Administration Glucagon 1 mg 08/17/24 17:18 Glucagon For Inj 1 Mg Vial IM PRN PRN Hypoglycemia Protocol Glucose 15 gm 08/17/24 17:18 Glucose Oral Gel 15 Gm Of Glucse In 37.5 Gm Tube PO PRN PRN Hypoglycemia Protocol Dextrose 1,000 mls @ 100 mls/hr 08/17/24 17:18 Dextrose 5% 1,000 Ml IVPB PRN PRN Hypoglycemia Protocol Cefepime HCl 1 gm in 50 mls @ 100 mls/hr 08/20/24 12:00 08/20/24 12:48 Maxipime 1 Gm/Ns 50 Ml IVPB 100 mls/hr Q12HR KAELA Administration Insulin Aspart 4 - 8 units 08/18/24 08:00 08/20/24 17:21 Insulin Aspart (*Bkc) 100 Units/Ml SUB-Q 5 units TIDWM KAELA Administration Protocol Insulin Aspart 2 - 4 units 08/17/24 21:00 08/19/24 20:35 Insulin Aspart (*Bkc) 100 Units/Ml SUB-Q 2 units HS [facility] Administration Protocol Insulin Aspart 3 units 08/20/24 12:00 08/20/24 17:21 Insulin Aspart (*Bkc) 100 Units/Ml SUB-Q 3 units TIDWM KAELA Administration Insulin Glargine 15 units 08/20/24 21:00 Insulin Glargine (*Bkc) 100 Units/Ml SUB-Q HS [facility] Levothyroxine Sodium 50 mcg 08/18/24 06:30 08/20/24 06:15 Levothyroxine Sodium 50 Mcg Tablet PO 50 mcg DAILY@0630 KAELA Administration Metoprolol Succinate 25 mg 08/21/24 09:00 Metoprolol Succinate Ext Rel 25 Mg Tabcr PO QAM [facility] Ondansetron HCl 4 mg 08/17/24 17:17 Ondansetron Inj 4 Mg/2 Ml Vial IV PUSH Q6H PRN Nausea And Vomiting Pantoprazole Sodium 40 mg 08/18/24 09:00 08/20/24 09:02 Pantoprazole 40 Mg Tablet PO 40 mg QAM KAELA Administration Sodium Chloride 2 spray 08/17/24 20:42 Saline 0.65% Sha Soln 44 Ml Btl NASAL QID PRN nasal congestion/dryness Vitamin D 2,000 units 08/18/24 09:00 08/20/24 09:02 Cholecalciferol 1,000 Units Tablet PO 2,000 units DAILY KAELA Administration Radiology Results: ITS Impressions Chest X-Ray 08/17/24 13:11 IMPRESSION: 1. Airspace opacities in the lower lung zones, likely atelectasis. Shoulder X-Ray 08/18/24 15:56 IMPRESSION: Osteopenia Head CT 08/20/24 09:56 IMPRESSION: 1. Stable moderate nonspecific cerebral white matter disease, which likely represents chronic small vessel ischemic disease. Pulmonary Perfusion Imaging 08/20/24 12:15 IMPRESSION: 1. Low probability for pulmonary embolism. Labs Labs: Laboratory Results - last 24 hr 08/20/24 05:19 WBC 11.4 H Hgb 11.9 L Hct 40.9 Plt Count 222 Sodium 134 L Potassium 4.4 Chloride 97 L Carbon Dioxide 28 Anion Gap 9 BUN 61 H Creatinine 2.70 H Estim Creat Clear Calc 24 Estimated GFR 17 L Glucose 274 H Calcium 10.4 H Phosphorus 4.0 Total Bilirubin 0.7 AST 18 ALT 10 Alkaline Phosphatase 109 Total Protein 7.0 Albumin 3.8
[2024-08-20 11:03] LABS: Lactic Acid Reflex 1.2 mmol/L (0.7-2.0)
[2024-08-20 11:06] LABS: Prothrombin Time 13.7 Seconds (11.1-14.7)
[2024-08-20 12:20] LABS: Glucose Point of Care 296 mg/dl (65-105)
[2024-08-20] MEDS: AZITHROMYCIN 250 MG TABLET 500 MG PO (12:42)
[2024-08-20 12:43] LABS: Alveolar/Arterial O2 Gradient 137.6 mmHg; Base Excess ABG 5.7 mEq/l (+/-2.0); Fractional Inspired Oxygen 36 %; HCO3 ABG 30.1 mEq/l (22.0-26.0); Oxygen Content ABG 17.6 %vol (16.0-22.0); Oxygen Saturation ABG 94.7 % (95.0-100.0); Oxyhemoglobin 93.2 % THb (90.0-100.0); PCO2 ABG 43.1 mmHg (35.0-45.0); PO2 ABG 69.1 mmHg (80.0-100.0); PO2 FiO2 Ratio Arterial Blood 1.92 %; Total Hemoglobin 13.4 g/dL (12.0-18.0); pH ABG 7.462 (7.350-7.450)
[2024-08-20 12:45] LABS: Device NASAL CANNULA; Modified Allen's Test Pass; Site Drawn RIGHT RADIAL
[2024-08-20] MEDS: CEFEPIME 1 GM/NS 50 ML 1 GM/50 ML BAG IVPB ×2 (12:48→20:13)
--- NOTE | 2024-08-20 13:50 | PCOTNOTE ---
Per RN, Patient is unable to participate in therapy services at this time. Patient unable to follow commands and awaiting test results for increased confusion.
[2024-08-20 16:43] LABS: Glucose Point of Care 253 mg/dl (65-105)
[2024-08-20] MEDS: GABAPENTIN 300 MG CAPSULE PO (20:07)
[2024-08-20] MEDS: ATORVASTATIN 10 MG TABLET PO (20:07)
[2024-08-20] MEDS: INSULIN GLARGINE (*BKC) 100 UNITS/ML 15 UNITS SUB-Q (20:07)
[2024-08-20] MEDS: AMITRIPTYLINE HCL 10 MG TABLET PO (20:07)
[2024-08-20 21:34] LABS: Glucose Point of Care 278 mg/dl (65-105)
[2024-08-21] VITALS (15 sets, daily range): BP systolic 136–148; BP diastolic 63–79; PULSE 84–97; RESP 18–20; TEMP 36.6–36.9; O2SAT 91–99; BMI 10.0
[2024-08-21] MEDS: IPRATROPIUM 0.5 MG/ALBUTEROL SULFATE 2.5 MG AMPUL.NEB 3 ML INHALATION ×4 (02:01→20:02)
[2024-08-21] MEDS: BENZONATATE 100 MG CAPSULE PO ×2 (06:00→20:30)
[2024-08-21] MEDS: LEVOTHYROXINE SODIUM 50 MCG TABLET PO (06:00)
[2024-08-21 06:38] LABS: Basophils Absolute Auto 0.1 K/mm3 (0.0-0.1); Basophils Percent Auto 0.5 % (0.2-1.2); Eosinophils Absolute Auto 0.2 K/mm3 (0-0.3); Eosinophils Percent Auto 1.8 % (0-4.4); Hematocrit 40.6 % (37.0-47.0); Hemoglobin 12.1 g/dL (12.0-15.0); Immature Granulocyte Absolute 0.04 K/mm3 (0.00-0.031); Immature Granulocyte Percent A 0.4 % (0-0.5); Lymphocytes Absolute Auto 2.07 K/mm3 (0.9-3.2); Lymphocytes Percent Auto 20.7 % (18.3-44.2); Mean Corpuscular HGB Conc 29.8 g/dl (32-36); Mean Corpuscular Hemoglobin 29.6 pg (26-34); Mean Corpuscular Volume 99.3 fl (80-100); Mean Platelet Volume 9.8 fl (7.4-10.4); Monocytes Percent Auto 9.9 % (2.6-8.5); Neutrophils Absolute Auto 6.7 K/mm3 (1.3-6.7); Neutrophils Percent Auto 66.7 % (45.5-73.1); Platelet Count Result 227 k/mm3 (150-375); Red Blood Count 4.09 M/mm3 (4.2-5.4); Red Cell Distribution Width 16.2 % (11.5-14.5)
[2024-08-21 06:49] LABS: Alanine Aminotransferase 11 U/L (6-35); Albumin Level 3.7 g/dL (3.5-5.1); Alkaline Phosphatase 112 U/L (38-126); Anion Gap 9 mmol/L (4-12); Aspartate Amino Transferase 16 U/L (14-36); Bilirubin,Total 0.7 mg/dL (0.2-1.3); Blood Urea Nitrogen 53 mg/dL (7-17); Carbon Dioxide 31 mmol/L (22-30); Chloride 101 mmol/L (98-107); Estimated CRCL calculation 24 ml/min; Estimated Glomerular Filt Rate 17; Glucose 270 mg/dL (65-110); Potassium 4.1 mmol/L (3.4-5.0); Sodium 141 mmol/L (137-145)
[2024-08-21 07:02] LABS: Anisocytosis 1+; Hypochromasia 1+; Platelet Estimate Adequate (Adequate); Schistocytes None Seen
[2024-08-21 07:31] LABS: Glucose Point of Care 258 mg/dl (65-105)
[2024-08-21] MEDS: CEFEPIME 1 GM/NS 50 ML 1 GM/50 ML BAG IVPB ×2 (10:09→20:30)
[2024-08-21] MEDS: INSULIN ASPART (*BKC) 100 UNITS/ML SUB-Q ×7 (10:10→21:06)
[2024-08-21] MEDS: ESCITALOPRAM OXALATE 10 MG TABLET 20 MG PO (10:11)
[2024-08-21] MEDS: CHOLECALCIFEROL 1,000 UNITS TABLET 2000 UNITS PO (10:11)
[2024-08-21] MEDS: ASPIRIN 81 MG ENTERIC TABLET PO (10:12)
[2024-08-21] MEDS: allopurinoL 300 MG TABLET PO (10:12)
[2024-08-21] MEDS: METOPROLOL SUCCINATE EXT REL 25 MG TABCR PO (10:12)
[2024-08-21] MEDS: PANTOPRAZOLE 40 MG TABLET PO (10:13)
[2024-08-21] MEDS: ENOXAPARIN 30 MG/0.3 ML SYRINGE SUB-Q (10:14)
[2024-08-21] MEDS: FLUTICASONE PROPIONATE 0.05% NA SPR 16 GM BTL (*BKC) 2 SPRAY NASAL (10:18)
[2024-08-21 12:28] LABS: Glucose Point of Care 377 mg/dl (65-105)
[2024-08-21] MEDS: AZITHROMYCIN 250 MG TABLET 500 MG PO (12:44)
--- NOTE | 2024-08-21 13:29 | PM.PNNEP ---
Subjective Date/time seen: 08/21/24 11:01 Objective Data Vital Signs Vital Signs: Vital Signs Temp Pulse Resp BP Pulse Ox O2 Del Method O2 Flow Rate 08/21/24 10:10 94 Nasal Cannula 4 08/21/24 10:12 95 08/21/24 07:20 86 20 08/21/24 07:09 87 20 08/21/24 07:09 93 Nasal Cannula 4 08/21/24 05:34 97.9 F 93 20 148/78 H 95 08/21/24 02:09 84 20 08/21/24 02:01 84 20 08/20/24 20:00 93 Nasal Cannula 4 08/20/24 20:06 90 20 08/20/24 19:57 93 Nasal Cannula 4 08/20/24 19:56 89 20 08/20/24 19:32 98.6 F 89 20 132/73 92 08/20/24 14:26 98.1 F 102 H 18 160/84 H 96 08/20/24 14:26 95 20 08/20/24 14:15 99 20 Intake/Output Intake/Output: Intake & Output 08/18/24 08/19/24 08/20/24 08/21/24 23:59 23:59 23:59 23:59 Intake Total 2070 2110 2100 800 Output Total 1500 2550 1600 400 Balance 570 -440 500 400 Meds/Results Medications: Active Medications Generic Name Dose Route Start Last Admin Trade Name Freq PRN Reason Stop Dose Admin Acetaminophen 650 mg 08/17/24 16:39 08/18/24 12:20 Acetaminophen 325 Mg Tablet PO 650 mg Q4H PRN Administration Mild Pain (1-3) or Fever Hydrocodone Bitart/Acetaminophen 1 tab 08/18/24 14:16 08/18/24 21:39 Hydrocodone/Acetaminophen (*Crx) 5-325 Mg Tablet PO 1 tab Q4H PRN Administration Pain Rated 4-6 Albuterol/Ipratropium 3 ml 08/17/24 20:00 08/21/24 07:09 Ipratropium 0.5 Mg/Albuterol Sulfate 2.5 Mg Ampul.Neb 3 Ml INHALATION 3 ml Q6HRT KAELA Administration Allopurinol 300 mg 08/18/24 09:00 08/21/24 10:12 Allopurinol 300 Mg Tablet PO 300 mg DAILY KAELA Administration Amitriptyline HCl 10 mg 10/25/24 21:00 08/20/24 20:07 Amitriptyline Hcl 10 Mg Tablet PO 10 mg QHS KAELA Administration Aspirin 81 mg 08/18/24 09:00 08/21/24 10:12 Aspirin 81 Mg Enteric Tablet PO 81 mg QAM KAELA Administration Atorvastatin Calcium 10 mg 08/17/24 21:00 08/20/24 20:07 Atorvastatin 10 Mg Tablet PO 10 mg HS KAELA Administration Benzonatate 100 mg 08/17/24 20:42 08/21/24 06:00 Benzonatate 100 Mg Capsule PO 100 mg TID PRN Administration Cough Dextrose 12.5 gm 08/17/24 17:18 Dextrose 50% 25 Gm/50 Ml Syringe IV PUSH PRN PRN Hypoglycemia Protocol Enoxaparin Sodium 30 mg 08/18/24 09:00 08/21/24 10:14 Enoxaparin 30 Mg/0.3 Ml Syringe SUB-Q 30 mg DAILY KAELA Administration Escitalopram Oxalate 20 mg 08/18/24 09:00 08/21/24 10:11 Escitalopram Oxalate 10 Mg Tablet PO 20 mg DAILY KAELA Administration Fluticasone Propionate 2 spray 08/18/24 09:00 08/21/24 10:18 Fluticasone Propionate 0.05% Na Spr 16 Gm Btl (*Bkc) NASAL 2 spray DAILY KAELA Administration Furosemide 40 mg 08/18/24 09:00 Furosemide Inj 40 Mg/4 Ml Vial IV PUSH BID KAELA Gabapentin 300 mg 08/17/24 21:00 08/20/24 20:07 Gabapentin 300 Mg Capsule PO 300 mg QHS KAELA Administration Glucagon 1 mg 08/17/24 17:18 Glucagon For Inj 1 Mg Vial IM PRN PRN Hypoglycemia Protocol Glucose 15 gm 08/17/24 17:18 Glucose Oral Gel 15 Gm Of Glucse In 37.5 Gm Tube PO PRN PRN Hypoglycemia Protocol Dextrose 1,000 mls @ 100 mls/hr 08/17/24 17:18 Dextrose 5% 1,000 Ml IVPB PRN PRN Hypoglycemia Protocol Cefepime HCl 1 gm in 50 mls @ 100 mls/hr 08/20/24 12:00 08/21/24 10:39 Maxipime 1 Gm/Ns 50 Ml IVPB Infused Q12HR KAELA Infusion Insulin Aspart 4 - 8 units 08/18/24 08:00 08/21/24 12:44 Insulin Aspart (*Bkc) 100 Units/Ml SUB-Q 8 units TIDWM KAELA Administration Protocol Insulin Aspart 2 - 4 units 08/17/24 21:00 08/20/24 20:07 Insulin Aspart (*Bkc) 100 Units/Ml SUB-Q 2 units HS KAELA Administration Protocol Insulin Aspart 3 units 08/20/24 12:00 08/21/24 12:44 Insulin Aspart (*Bkc) 100 Units/Ml SUB-Q 3 units TIDWM KAELA Administration Insulin Glargine 15 units 08/20/24 21:00 08/20/24 20:07 Insulin Glargine (*Bkc) 100 Units/Ml SUB-Q 15 units HS KAELA Administration Levothyroxine Sodium 50 mcg 08/18/24 06:30 08/21/24 06:00 Levothyroxine Sodium 50 Mcg Tablet PO 50 mcg DAILY@0630 KAELA Administration Metoprolol Succinate 25 mg 08/21/24 09:00 08/21/24 10:12 Metoprolol Succinate Ext Rel 25 Mg Tabcr PO 25 mg QAM KAELA Administration Ondansetron HCl 4 mg 08/17/24 17:17 Ondansetron Inj 4 Mg/2 Ml Vial IV PUSH Q6H PRN Nausea And Vomiting Pantoprazole Sodium 40 mg 08/18/24 09:00 08/21/24 10:13 Pantoprazole 40 Mg Tablet PO 40 mg QAM KAELA Administration Sodium Chloride 2 spray 08/17/24 20:42 Saline 0.65% Sha Soln 44 Ml Btl NASAL QID PRN nasal congestion/dryness Vitamin D 2,000 units 08/18/24 09:00 08/21/24 10:11 Cholecalciferol 1,000 Units Tablet PO 2,000 units DAILY KAELA Administration Radiology Results: ITS Impressions Chest X-Ray 08/17/24 13:11 IMPRESSION: 1. Airspace opacities in the lower lung zones, likely atelectasis. Shoulder X-Ray 08/18/24 15:56 IMPRESSION: Osteopenia Head CT 08/20/24 09:56 IMPRESSION: 1. Stable moderate nonspecific cerebral white matter disease, which likely represents chronic small vessel ischemic disease. Pulmonary Perfusion Imaging 08/20/24 12:15 IMPRESSION: 1. Low probability for pulmonary embolism. Labs Labs: Laboratory Tests 08/21/24 06:14 08/21/24 06:14 Calcium 11.0 H Total Bilirubin 0.7 AST 16 ALT 11 Alkaline Phosphatase 112 Total Protein 7.0 Albumin 3.7 Microbiology 08/20/24 10:31 Blood Blood Culture - Preliminary 08/20/24 13:09 Blood Blood Culture - Preliminary 08/17/24 12:46 Urine Clean Catch Urine Culture - Final Citrobacter braakii
--- NOTE | 2024-08-21 15:05 | PC.NURSE ---
RN gave update to daughter Beverly via telephone on patient status.
[2024-08-21 16:59] LABS: Urine Calcium, Random 2.6 mg/dL; Urine Creatinine, Random 100 mg/dL (20-275)
[2024-08-21 17:25] LABS: Glucose Point of Care 301 mg/dl (65-105)
[2024-08-21] MEDS: ATORVASTATIN 10 MG TABLET PO (20:30)
[2024-08-21] MEDS: GABAPENTIN 300 MG CAPSULE PO (20:30)
[2024-08-21] MEDS: AMITRIPTYLINE HCL 10 MG TABLET PO (20:30)
[2024-08-21] MEDS: INSULIN GLARGINE (*BKC) 100 UNITS/ML 15 UNITS SUB-Q (21:05)
[2024-08-21 21:43] LABS: Glucose Point of Care 318 mg/dl (65-105)
[2024-08-22] VITALS (11 sets, daily range): BP systolic 152–179; BP diastolic 81–86; PULSE 90–112; RESP 16–20; TEMP 36.3–36.9; O2SAT 91–95; BMI 10.0
[2024-08-22] MEDS: LEVOTHYROXINE SODIUM 50 MCG TABLET PO (06:00)
[2024-08-22 07:12] LABS: Basophils Percent Auto 0.4 % (0.2-1.2); Eosinophils Absolute Auto 0.4 K/mm3 (0-0.3); Eosinophils Percent Auto 3.5 % (0-4.4); Hematocrit 38.9 % (37.0-47.0); Hemoglobin 11.6 g/dL (12.0-15.0); Immature Granulocyte Absolute 0.03 K/mm3 (0.00-0.031); Immature Granulocyte Percent A 0.3 % (0-0.5); Lymphocytes Absolute Auto 1.62 K/mm3 (0.9-3.2); Lymphocytes Percent Auto 15.6 % (18.3-44.2); Mean Corpuscular HGB Conc 29.8 g/dl (32-36); Mean Corpuscular Hemoglobin 29.7 pg (26-34); Mean Corpuscular Volume 99.5 fl (80-100); Mean Platelet Volume 10.2 fl (7.4-10.4); Monocytes Absolute Auto 0.9 K/mm3 (0.1-0.6); Monocytes Percent Auto 8.2 % (2.6-8.5); Neutrophils Absolute Auto 7.5 K/mm3 (1.3-6.7); Platelet Count Result 236 k/mm3 (150-375); Red Blood Count 3.91 M/mm3 (4.2-5.4); Red Cell Distribution Width 16.2 % (11.5-14.5); White Blood Count 10.4 K/mm3 (4.5-10.0)
[2024-08-22 07:31] LABS: Alanine Aminotransferase 10 U/L (6-35); Albumin Level 3.8 g/dL (3.5-5.1); Alkaline Phosphatase 101 U/L (38-126); Anion Gap 11 mmol/L (4-12); Aspartate Amino Transferase 15 U/L (14-36); Bilirubin,Total 0.7 mg/dL (0.2-1.3); Blood Urea Nitrogen 50 mg/dL (7-17); Calcium 11.1 mg/dL (8.4-10.2); Carbon Dioxide 27 mmol/L (22-30); Chloride 101 mmol/L (98-107); Estimated CRCL calculation 28 ml/min; Estimated Glomerular Filt Rate 21; Glucose 282 mg/dL (65-110); Potassium 4.4 mmol/L (3.4-5.0); Sodium 139 mmol/L (137-145)
[2024-08-22 07:53] LABS: Hypochromasia 1+; Platelet Estimate Adequate (Adequate); Schistocytes None Seen
[2024-08-22] MEDS: IPRATROPIUM 0.5 MG/ALBUTEROL SULFATE 2.5 MG AMPUL.NEB 3 ML INHALATION ×3 (07:58→21:48)
[2024-08-22 08:35] LABS: Glucose Point of Care 316 mg/dl (65-105)
[2024-08-22] MEDS: CEFEPIME 1 GM/NS 50 ML 1 GM/50 ML BAG IVPB (09:57)
[2024-08-22] MEDS: allopurinoL 300 MG TABLET PO (09:58)
[2024-08-22] MEDS: CHOLECALCIFEROL 1,000 UNITS TABLET 2000 UNITS PO (09:58)
[2024-08-22] MEDS: PANTOPRAZOLE 40 MG TABLET PO (09:58)
[2024-08-22] MEDS: METOPROLOL SUCCINATE EXT REL 25 MG TABCR PO (09:58)
[2024-08-22] MEDS: ASPIRIN 81 MG ENTERIC TABLET PO (09:58)
[2024-08-22] MEDS: ESCITALOPRAM OXALATE 10 MG TABLET 20 MG PO (09:58)
[2024-08-22] MEDS: ENOXAPARIN 30 MG/0.3 ML SYRINGE SUB-Q (09:58)
[2024-08-22] MEDS: INSULIN ASPART (*BKC) 100 UNITS/ML SUB-Q ×7 (09:59→21:48)
[2024-08-22] MEDS: FLUTICASONE PROPIONATE 0.05% NA SPR 16 GM BTL (*BKC) 2 SPRAY NASAL (10:00)
--- NOTE | 2024-08-22 10:30 | P.PNIM_ITS ---
Progress Note: A&P Assessment and Plan (1) UTI (urinary tract infection): Qualifiers: Hematuria presence: without hematuria Urinary tract infection type: site unspecified Qualified Code(s): N39.0 - Urinary tract infection, site not specified Code(s): N39.0 - Urinary tract infection, site not specified Status: Acute Assessment and Plan: * UA revealed cloudy urine appearance, 2+ urine glucose, positive nitrate, 2+ leukocyte, 51-100 urine WBC, 4+ urine bacteria. * Urine and blood culture was obtained and pending * patient was started on Rocephin * urine culture from 06/23/2023 revealed E coli which was essentially pansensitive except for Bactrim * switched to cefepipme IV likely deescalate tomorrow after stent replacement * will change out her ureter stents tomorrow (2) Acute respiratory failure with hypoxia: Code(s): J96.01 - Acute respiratory failure with hypoxia Status: Acute Assessment and Plan: * patient is not on any baseline oxygen during the day however is requiring 2-4 L nasal cannula now due to hypoxia in the ER with oxygen saturation of 87% on room air. 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 However she does not take any chronic anticoagulation * will also check troponin * EKG showing sinus rhythm with a rate of 66, QTC 423 08/18- V/Q scan ordered unable to do V/Q scan over the weekend. Cr is still high, cr cl too low/gfr low- risk for worsening of kidney functions- discussed with pt. -WELL's criteria for PE- 1.5%- low suspicion for PE- so will observe for now and hold off on scans 08/19- stable- no worsening symptoms-continue regimen and monitor Discussed with Dr Bergman- ok to do VQ scan-will proceed then to r/o PE 08/20- hr slightly elevated, rr elevated- wbc slightly increased. Switch antibiotics to cefepime- head CT, lactic acid, ABG. QTC 423 VQ scan - done- Low probability for pulmonary embolism. - switched to cefepime IV (3) CHF (congestive heart failure), NYHA class I: Qualifiers: Congestive heart failure type: unspecified Qualified Code(s): I50.9 - Heart failure, unspecified Code(s): I50.9 - Heart failure, unspecified Status: Acute Assessment and Plan: * echocardiogram from 12/30/2021 showed normal LV systolic function with an estimated EF of 65-70%, grade 1 diastolic dysfunction. * Chest x-ray reporting airspace opacities in the lower lung zones likely atelectasis. After reviewing the chest x-ray myself and comparing it to a previous chest x-ray patient does appear to have pulmonary edema * proBNP ordered * a one time dose of 40 mg of IV Lasix ordered-- Will hold off on further diuresis considering renal function * consider nephrology consult if requiring further diuresis * echocardiogram EF 65-70% * continuous telemetry monitoring ordered (4) Type 2 diabetes mellitus: Qualifiers: Chronic kidney disease stage: stage 3 (moderate) Chronic kidney disease stage 3 subtype: stage 3b (GFR 30-44) Diabetes mellitus complication detail: with chronic kidney disease Diabetes mellitus complication status: with kidney complications 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 Qualified Code(s): E11.22 - Type 2 diabetes mellitus with diabetic chronic kidney disease; N18.32 - Chronic kidney disease, stage 3b; Z79.4 - USP (current) use of insulin Code(s): E11.9 - Type 2 diabetes mellitus without complications Status: Chronic Assessment and Plan: * Blood sugars ranging 201-260 * Hgb A1C 8.4 on 05/26/2022 * repeat hemoglobin A1c ordered * Accu checks AC/HS * high-dose SSI ordered * hypoglycemic protocol in place * Diabetic diet ordered * hold Farxiga and mealtime replacement insulin * hold Lantus for now considering reported blood sugar a 53, will reassess in the morning 08/19- BS had been high today- 380's * -order regular insulin x 1 and recheck * - continue high dose SS and hypoglycemia [protocol * -will add lantus 10 units and monitor as had been stable * -if continues to be elevated- will add base meal insulin 08/20 increased Lantus (5) Chronic kidney disease, stage IV (severe): Code(s): N18.4 - Chronic kidney disease, stage 4 (severe) Status: Chronic Assessment and Plan: * creatinine 2.9, EGFR 16 * baseline creatinine 2.10-2.60, baseline EGFR 18-23 * continue to trend * avoid nephrotoxic medications or testing with IV contrast * - nephrology consulted- PTH level urine calcium to creatinine ratio. (6) Hypertension: Code(s): I10 - Essential (primary) hypertension Status: Chronic Assessment and Plan: * blood pressure ranging 114/72-136/72 * continue carvedilol (7) Obstructive sleep apnea on CPAP: Code(s): G47.33 - Obstructive sleep apnea (adult) (pediatric); Z99.89 - Dependence on other enabling machines and devices Status: Chronic Assessment and Plan: * patient does not wear CPAP only wears 2L of oxygen at night only (8) Hyperlipidemia: Qualifiers: Hyperlipidemia type: other hyperlipidemia Qualified Code(s): E78.49 - Other hyperlipidemia Code(s): E78.5 - Hyperlipidemia, unspecified Status: Chronic Assessment and Plan: * continue atorvastatin and aspirin (9) Hypothyroidism: Qualifiers: Hypothyroidism type: acquired Qualified Code(s): E03.9 - Hypothyroidism, unspecified Code(s): E03.9 - Hypothyroidism, unspecified Status: Chronic Assessment and Plan: * continue Synthroid * TSH 1.9 (10) Elevated d-dimer: Code(s): R79.89 - Other specified abnormal findings of blood chemistry Status: Acute Assessment and Plan: * D-dimer 0.79 * Will get V/Q scan to rule out PE considering her history of DVT and PE in the past and is not currently on any anticoagulation * see Acute resp failure plan * VQ scan shows Low probability for pulmonary embolism. (11) Confusion: Code(s): R41.0 - Disorientation, unspecified Status: Acute Assessment and Plan: improving she seems calm, pleasantoriented to self but confused about time/place - head ct negative for acute bleed - VQ scan- Low probability for pulmonary embolism. lactic acid negative abg compensated respiratory acidosis antibiotic escalated to cefepime continue to monitor daughter updated Time Spent With Patient Time with patient: Greater than 35 minutes Subjective Date/time seen: 08/22/24 10:30 Interval history: 74-year-old female with a significant past medical history of who presented to the ER with generalized weakness , hypoglycemia, pneumonia and UTI. patient's blood sugar has in the 300s 08/19, Lantus increased, mental status improving her family, plan for your ureter stent replacement tomorrow Review of Systems Review of Systems: All systems reviewed & are unremarkable except as noted in HPI and below Constitutional: Constitutional: Reports as per HPI and Reports no additional constitutional complaints Eyes: Eyes: Reports as per HPI and Reports no additional eye complaints ENT: Reports system reviewed and no additional complaints, except as documented and Reports as per HPI Cardiovascular: Cardiovascular: Reports as per HPI and Reports no additional cardiovascular complaints Respiratory: Respiratory: Reports as per HPI and Reports no additional respiratory complaints Gastrointestinal: Gastrointestinal: Reports as per HPI and Reports no additional gastrointestinal complaints Genitourinary: Genitourinary: Reports no additional female genitourinary complaints and Reports as per HPI Musculoskeletal: Musculoskeletal: Reports no additional musculoskeletal complaints and Reports as per HPI Integumentary/Breasts: Skin/Breast: Reports system reviewed and no additional complaints, except as docu and Reports as per HPI Neurologic: Reports system reviewed and no additional complaints, except as documented and Reports as per HPI Psychiatric: Psychiatric: Reports no additional psychiatric complaints and Reports as per HPI Exam Narrative: General: Week appearance, well nourished, pleasant Head: atraumatic, no encephalopathy Eyes: PERRLA, sclera clear ENT: moist mucous membranes, nasal passages clear Neck: supple, no JVD, no adenopathy, trachea midline Cardiac: Normal S1 and S2. No murmur, gallops or friction rubs, peripheral pulses intact. Respiratory: Lungs clear in the upper lobes, diminished in the bases, currently on room air, no adventitious lung sounds noted Gastrointestinal: soft, non-distended, non-tender, normoactive bowel sounds. : voiding without difficulty via purewick, clear and yellow. Reports dysuria and urinary frequency Extremities: moves all extremities fair, 1 to 2+ pitting edema to bilateral lower extremity Skin: clean, dry, intact. No wounds or lesions. Neuro: Alert and oriented x 2-3, cranial nerves intact, no neuro deficits. Psych: normal mood, normal affect, interactive, calm Objective Data Vital Signs Vital Signs: Vital Signs - 24 hr 08/21/24 14:18 08/21/24 14:27 08/21/24 14:00 Temperature 98.1 F Pulse Rate 88 85 87 Respiratory Rate 20 20 18 Blood Pressure 142/79 H Pulse Oximetry 99 Oxygen Delivery Oxygen Flow Rate Fraction of Inspired Oxygen 08/21/24 20:02 08/21/24 20:06 08/21/24 20:10 Temperature Pulse Rate 95 95 92 Respiratory Rate 20 20 Blood Pressure Pulse Oximetry 93 Oxygen Delivery Nasal Cannula Oxygen Flow Rate 4 Fraction of Inspired Oxygen 36 08/21/24 20:34 08/21/24 20:00 08/22/24 05:10 Temperature 98.4 F 97.9 F Pulse Rate 97 90 Respiratory Rate 18 18 Blood Pressure 136/63 152/81 H Pulse Oximetry 91 92 93 Oxygen Delivery Nasal Cannula Oxygen Flow Rate 3 Fraction of Inspired Oxygen 08/22/24 07:58 08/22/24 07:58 08/22/24 08:08 Temperature Pulse Rate 97 94 Respiratory Rate 20 20 Blood Pressure Pulse Oximetry 93 Oxygen Delivery Nasal Cannula Oxygen Flow Rate 4 Fraction of Inspired Oxygen 08/22/24 09:58 Temperature Pulse Rate 105 H Respiratory Rate Blood Pressure Pulse Oximetry Oxygen Delivery Oxygen Flow Rate Fraction of Inspired Oxygen Intake/Output Intake/Output: Intake & Output 08/19/24 08/20/24 08/21/24 08/22/24 23:59 23:59 23:59 23:59 Intake Total 2110 2100 1390 340 Output Total 2550 1600 950 500 Balance -440 500 440 -160 Meds/Results Medications: Active Medications Generic Name Dose Route Start Last Admin Trade Name Freq PRN Reason Stop Dose Admin Acetaminophen 650 mg 08/17/24 16:39 08/18/24 12:20 Acetaminophen 325 Mg Tablet PO 650 mg Q4H PRN Administration Mild Pain (1-3) or Fever Hydrocodone Bitart/Acetaminophen 1 tab 08/18/24 14:16 08/18/24 21:39 Hydrocodone/Acetaminophen (*Crx) 5-325 Mg Tablet PO 1 tab Q4H PRN Administration Pain Rated 4-6 Albuterol/Ipratropium 3 ml 08/17/24 20:00 08/22/24 07:58 Ipratropium 0.5 Mg/Albuterol Sulfate 2.5 Mg Ampul.Neb 3 Ml INHALATION 3 ml Q6HRT KAELA Administration Allopurinol 300 mg 08/18/24 09:00 08/22/24 09:58 Allopurinol 300 Mg Tablet PO 300 mg DAILY KAELA Administration Amitriptyline HCl 10 mg 08/17/24 21:00 08/21/24 20:30 Amitriptyline Hcl 10 Mg Tablet PO 10 mg QHS KAELA Administration Aspirin 81 mg 08/18/24 09:00 08/22/24 09:58 Aspirin 81 Mg Enteric Tablet PO 81 mg QAM KAELA Administration Atorvastatin Calcium 10 mg 08/17/24 21:00 08/21/24 20:30 Atorvastatin 10 Mg Tablet PO 10 mg HS KAELA Administration Benzonatate 100 mg 08/17/24 20:42 08/21/24 20:30 Benzonatate 100 Mg Capsule PO 100 mg TID PRN Administration Cough Dextrose 12.5 gm 08/17/24 17:18 Dextrose 50% 25 Gm/50 Ml Syringe IV PUSH PRN PRN Hypoglycemia Protocol Enoxaparin Sodium 30 mg 08/18/24 09:00 08/22/24 09:58 Enoxaparin 30 Mg/0.3 Ml Syringe SUB-Q 30 mg DAILY KAELA Administration Escitalopram Oxalate 20 mg 08/18/24 09:00 08/22/24 09:58 Escitalopram Oxalate 10 Mg Tablet PO 20 mg DAILY KAELA Administration Fluticasone Propionate 2 spray 08/18/24 09:00 08/22/24 10:00 Fluticasone Propionate 0.05% Na Spr 16 Gm Btl (*Bkc) NASAL 2 spray DAILY KAELA Administration Furosemide 40 mg 08/18/24 09:00 Furosemide Inj 40 Mg/4 Ml Vial IV PUSH BID KAELA Gabapentin 300 mg 08/17/24 21:00 08/21/24 20:30 Gabapentin 300 Mg Capsule PO 300 mg QHS KAELA Administration Glucagon 1 mg 08/17/24 17:18 Glucagon For Inj 1 Mg Vial IM PRN PRN Hypoglycemia Protocol Glucose 15 gm 08/17/24 17:18 Glucose Oral Gel 15 Gm Of Glucse In 37.5 Gm Tube PO PRN PRN Hypoglycemia Protocol Dextrose 1,000 mls @ 100 mls/hr 08/17/24 17:18 Dextrose 5% 1,000 Ml IVPB PRN PRN Hypoglycemia Protocol Cefepime HCl 1 gm in 50 mls @ 100 mls/hr 08/20/24 12:00 08/22/24 09:57 Maxipime 1 Gm/Ns 50 Ml IVPB 100 mls/hr Q12HR KAELA Administration Insulin Aspart 4 - 8 units 08/18/24 08:00 08/22/24 09:59 Insulin Aspart (*Bkc) 100 Units/Ml SUB-Q 6 units TIDWM KAELA Administration Protocol Insulin Aspart 2 - 4 units 08/17/24 21:00 08/21/24 21:06 Insulin Aspart (*Bkc) 100 Units/Ml SUB-Q 3 units HS KAELA Administration Protocol Insulin Aspart 3 units 08/20/24 12:00 08/22/24 09:59 Insulin Aspart (*Bkc) 100 Units/Ml SUB-Q 3 units TIDWM KAELA Administration Insulin Glargine 15 units 08/20/24 21:00 08/21/24 21:05 Insulin Glargine (*Bkc) 100 Units/Ml SUB-Q 15 units HS KAELA Administration Levothyroxine Sodium 50 mcg 08/18/24 06:30 08/22/24 06:00 Levothyroxine Sodium 50 Mcg Tablet PO 50 mcg DAILY@0630 KALEA Administration Metoprolol Succinate 25 mg 08/21/24 09:00 08/22/24 09:58 Metoprolol Succinate Ext Rel 25 Mg Tabcr PO 25 mg QAM KAELA Administration Ondansetron HCl 4 mg 08/17/24 17:17 Ondansetron Inj 4 Mg/2 Ml Vial IV PUSH Q6H PRN Nausea And Vomiting Pantoprazole Sodium 40 mg 08/18/24 09:00 08/22/24 09:58 Pantoprazole 40 Mg Tablet PO 40 mg QAM KAELA Administration Sodium Chloride 2 spray 08/17/24 20:42 Saline 0.65% Sha Soln 44 Ml Btl NASAL QID PRN nasal congestion/dryness Vitamin D 2,000 units 08/18/24 09:00 08/22/24 09:58 Cholecalciferol 1,000 Units Tablet PO 2,000 units DAILY KAELA Administration Radiology Results: ITS Impressions Chest X-Ray 08/17/24 13:11 IMPRESSION: 1. Airspace opacities in the lower lung zones, likely atelectasis. Shoulder X-Ray 08/18/24 15:56 IMPRESSION: Osteopenia Head CT 08/20/24 09:56 IMPRESSION: 1. Stable moderate nonspecific cerebral white matter disease, which likely represents chronic small vessel ischemic disease. Pulmonary Perfusion Imaging 08/20/24 12:15 IMPRESSION: 1. Low probability for pulmonary embolism. Labs Labs: Laboratory Results - last 24 hr 08/19/24 08/21/24 08/21/24 10:18 12:20 17:15 WBC RBC Hgb Hct MCV MCH MCHC RDW Plt Count MPV Immature Gran % (Auto) Neut % (Auto) Lymph % (Auto) [place] % (Auto) Eos % (Auto) Baso % (Auto) Lymph # (Auto) [place] # (Auto) Eos # (Auto) Baso # (Auto) Abs Immat Gran (auto) Absolute Neuts (auto) Absolute Nucleated RBC Nucleated RBC % Platelet Estimate Hypochromasia Schistocytes Sodium Potassium Chloride Carbon Dioxide Anion Gap BUN Creatinine Estim Creat Clear Calc Estimated GFR Glucose POC Capillary Glucose 377 H 301 H Calcium Total Bilirubin AST ALT Alkaline Phosphatase Total Protein Albumin Ur Random Creatinine 100 Ur Random Calcium 2.6 08/21/24 08/22/24 08/22/24 20:59 06:24 08:20 WBC 10.4 H RBC 3.91 L Hgb 11.6 L Hct 38.9 MCV 99.5 MCH 29.7 MCHC 29.8 L RDW 16.2 H Plt Count 236 MPV 10.2 Immature Gran % (Auto) 0.3 Neut % (Auto) 72.0 Lymph % (Auto) 15.6 L [place] % (Auto) 8.2 Eos % (Auto) 3.5 Baso % (Auto) 0.4 Lymph # (Auto) 1.62 [place] # (Auto) 0.9 H Eos # (Auto) 0.4 H Baso # (Auto) 0.0 Abs Immat Gran (auto) 0.03 Absolute Neuts (auto) 7.5 H Absolute Nucleated RBC 0.000 Nucleated RBC % 0.0 Platelet Estimate Adequate Hypochromasia 1+ Schistocytes None seen Sodium 139 Potassium 4.4 Chloride 101 Carbon Dioxide 27 Anion Gap 11 BUN 50 H Creatinine 2.30 H Estim Creat Clear Calc 28 Estimated GFR 21 L Glucose 282 H POC Capillary Glucose 318 H 316 H Calcium 11.1 H Total Bilirubin 0.7 AST 15 ALT 10 Alkaline Phosphatase 101 Total Protein 7.0 Albumin 3.8 Ur Random Creatinine Ur Random Calcium Quality VTE Prophylaxis VTE prophylaxis: pharmacologic ordered Hospitalist MIPS Advance Care Plan I have confirmed that the patient's Advanced Care Plan is present, code status is documented, or surrogate decision maker is listed in patient medical record.: Yes Medication Reconciliation I have utilized all available resources to obtain, update and review the patients current medications (includes all prescriptions, OTC, herbals, cannabis, and nutritional supplements).: Yes
[2024-08-22 12:21] LABS: Glucose Point of Care 385 mg/dl (65-105)
--- NOTE | 2024-08-22 13:38 | PM.PNNEP ---
Subjective Date/time seen: 08/22/24 13:38 Objective Data Vital Signs Vital Signs: Vital Signs Temp Pulse Resp BP Pulse Ox O2 Del Method O2 Flow Rate 08/22/24 13:26 94 20 08/22/24 09:58 91 Nasal Cannula 4 08/22/24 09:58 105 H 08/22/24 08:08 94 20 08/22/24 07:58 97 20 08/22/24 07:58 93 Nasal Cannula 4 08/22/24 05:10 97.9 F 90 18 152/81 H 93 08/21/24 20:00 92 Nasal Cannula 3 08/21/24 20:34 98.4 F 97 18 136/63 91 08/21/24 20:10 92 20 08/21/24 20:06 95 93 Nasal Cannula 4 08/21/24 20:02 95 20 Intake/Output Intake/Output: Intake & Output 08/19/24 08/20/24 08/21/24 08/22/24 23:59 23:59 23:59 23:59 Intake Total 2110 2100 1390 340 Output Total 2550 1600 950 800 Balance -440 500 440 -460 Meds/Results Medications: Active Medications Generic Name Dose Route Start Last Admin Trade Name Freq PRN Reason Stop Dose Admin Acetaminophen 650 mg 08/17/24 16:39 08/18/24 12:20 Acetaminophen 325 Mg Tablet PO 650 mg Q4H PRN Administration Mild Pain (1-3) or Fever Hydrocodone Bitart/Acetaminophen 1 tab 08/18/24 14:16 08/18/24 21:39 Hydrocodone/Acetaminophen (*Crx) 5-325 Mg Tablet PO 1 tab Q4H PRN Administration Pain Rated 4-6 Albuterol/Ipratropium 3 ml 08/17/24 20:00 08/22/24 14:26 Ipratropium 0.5 Mg/Albuterol Sulfate 2.5 Mg Ampul.Neb 3 Ml INHALATION 3 ml Q6HRT KAELA Administration Allopurinol 300 mg 08/18/24 09:00 08/22/24 09:58 Allopurinol 300 Mg Tablet PO 300 mg DAILY KAELA Administration Amitriptyline HCl 10 mg 08/17/24 21:00 08/21/24 20:30 Amitriptyline Hcl 10 Mg Tablet PO 10 mg QHS KAELA Administration Aspirin 81 mg 08/18/24 09:00 08/22/24 09:58 Aspirin 81 Mg Enteric Tablet PO 81 mg QAM KAELA Administration Atorvastatin Calcium 10 mg 08/17/24 21:00 08/21/24 20:30 Atorvastatin 10 Mg Tablet PO 10 mg HS KAELA Administration Benzonatate 100 mg 08/17/24 20:42 08/21/24 20:30 Benzonatate 100 Mg Capsule PO 100 mg TID PRN Administration Cough Dextrose 12.5 gm 08/17/24 17:18 Dextrose 50% 25 Gm/50 Ml Syringe IV PUSH PRN PRN Hypoglycemia Protocol Enoxaparin Sodium 40 mg 08/23/24 09:00 Enoxaparin 40 Mg/0.4 Ml Syringe SUB-Q DAILY KAELA Escitalopram Oxalate 20 mg 08/18/24 09:00 08/22/24 09:58 Escitalopram Oxalate 10 Mg Tablet PO 20 mg DAILY KAELA Administration Fluticasone Propionate 2 spray 08/18/24 09:00 08/22/24 10:00 Fluticasone Propionate 0.05% Na Spr 16 Gm Btl (*Bkc) NASAL 2 spray DAILY KAELA Administration Furosemide 40 mg 08/18/24 09:00 Furosemide Inj 40 Mg/4 Ml Vial IV PUSH BID KAELA Gabapentin 300 mg 08/17/24 21:00 08/21/24 20:30 Gabapentin 300 Mg Capsule PO 300 mg QHS KAELA Administration Glucagon 1 mg 08/17/24 17:18 Glucagon For Inj 1 Mg Vial IM PRN PRN Hypoglycemia Protocol Glucose 15 gm 08/17/24 17:18 Glucose Oral Gel 15 Gm Of Glucse In 37.5 Gm Tube PO PRN PRN Hypoglycemia Protocol Dextrose 1,000 mls @ 100 mls/hr 08/17/24 17:18 Dextrose 5% 1,000 Ml IVPB PRN PRN Hypoglycemia Protocol Insulin Aspart 4 - 8 units 08/18/24 08:00 08/22/24 12:31 Insulin Aspart (*Bkc) 100 Units/Ml SUB-Q 8 units TIDWM KAELA Administration Protocol Insulin Aspart 2 - 4 units 08/17/24 21:00 08/21/24 21:06 Insulin Aspart (*Bkc) 100 Units/Ml SUB-Q 3 units HS KAELA Administration Protocol Insulin Aspart 3 units 08/20/24 12:00 08/22/24 12:32 Insulin Aspart (*Bkc) 100 Units/Ml SUB-Q 3 units TIDWM KAELA Administration Insulin Glargine 20 units 08/22/24 21:00 Insulin Glargine (*Bkc) 100 Units/Ml SUB-Q HS KAELA Levothyroxine Sodium 50 mcg 08/18/24 06:30 08/22/24 06:00 Levothyroxine Sodium 50 Mcg Tablet PO 50 mcg DAILY@0630 KAELA Administration Metoprolol Succinate 25 mg 08/21/24 09:00 08/22/24 09:58 Metoprolol Succinate Ext Rel 25 Mg Tabcr PO 25 mg QAM KAELA Administration Ondansetron HCl 4 mg 08/17/24 17:17 Ondansetron Inj 4 Mg/2 Ml Vial IV PUSH Q6H PRN Nausea And Vomiting Pantoprazole Sodium 40 mg 08/18/24 09:00 08/22/24 09:58 Pantoprazole 40 Mg Tablet PO 40 mg QAM KAELA Administration Sodium Chloride 2 spray 08/17/24 20:42 Saline 0.65% Sha Soln 44 Ml Btl NASAL QID PRN nasal congestion/dryness Trimethoprim/Sulfamethoxazole 1 tab 08/23/24 09:00 Sulfamethoxazole/Trimethoprim 400/80 Mg Tablet PO 08/26/24 21:01 Q12HR KAELA Trimethoprim/Sulfamethoxazole 1 tab 08/22/24 21:00 Sulfamethoxazole/Trimethoprim 800/160 Mg Ds Tablet PO 08/22/24 21:01 ONCE ONE Vitamin D 2,000 units 08/18/24 09:00 08/22/24 09:58 Cholecalciferol 1,000 Units Tablet PO 2,000 units DAILY KAELA Administration Radiology Results: ITS Impressions Chest X-Ray 08/17/24 13:11 IMPRESSION: 1. Airspace opacities in the lower lung zones, likely atelectasis. Shoulder X-Ray 08/18/24 15:56 IMPRESSION: Osteopenia Head CT 08/20/24 09:56 IMPRESSION: 1. Stable moderate nonspecific cerebral white matter disease, which likely represents chronic small vessel ischemic disease. Pulmonary Perfusion Imaging 08/20/24 12:15 IMPRESSION: 1. Low probability for pulmonary embolism. Labs Labs: Laboratory Tests 08/22/24 06:24 08/22/24 06:24 Calcium 11.1 H Total Bilirubin 0.7 AST 15 ALT 10 Alkaline Phosphatase 101 Total Protein 7.0 Albumin 3.8 Microbiology 08/20/24 10:31 Blood Blood Culture - Preliminary
[2024-08-22 17:13] LABS: Glucose Point of Care 379 mg/dl (65-105)
[2024-08-22 18:31] LABS: Alveolar/Arterial O2 Gradient 147.7 mmHg; Base Excess ABG 2.2 mEq/l (+/-2.0); Fractional Inspired Oxygen 36 %; HCO3 ABG 25.7 mEq/l (22.0-26.0); Oxygen Content ABG 17.1 %vol (16.0-22.0); Oxygen Saturation ABG 94.3 % (95.0-100.0); Oxyhemoglobin 92.1 % THb (90.0-100.0); PCO2 ABG 36.6 mmHg (35.0-45.0); PO2 ABG 66.5 mmHg (80.0-100.0); PO2 FiO2 Ratio Arterial Blood 1.85 %; Total Hemoglobin 13.2 g/dL (12.0-18.0); pH ABG 7.465 (7.350-7.450)
[2024-08-22 18:32] LABS: Device NASAL CANNULA; Modified Allen's Test Pass; Site Drawn LEFT RADIAL
[2024-08-22] MEDS: BENZONATATE 100 MG CAPSULE PO (20:19)
[2024-08-22] MEDS: FUROSEMIDE INJ 40 MG/4 ML VIAL IV PUSH (20:19)
[2024-08-22] MEDS: AMITRIPTYLINE HCL 10 MG TABLET PO (20:19)
[2024-08-22] MEDS: ATORVASTATIN 10 MG TABLET PO (20:19)
[2024-08-22] MEDS: SULFAMETHOXAZOLE/TRIMETHOPRIM 800/160 MG DS TABLET 1 TAB PO (20:20)
[2024-08-22] MEDS: ACETAMINOPHEN 325 MG TABLET 650 MG PO (20:31)
[2024-08-22] MEDS: INSULIN GLARGINE (*BKC) 100 UNITS/ML 20 UNITS SUB-Q (21:49)
[2024-08-23] VITALS (11 sets, daily range): BP systolic 149–162; BP diastolic 64–87; PULSE 96–109; RESP 14–20; TEMP 36.2–36.4; O2SAT 91–99; BMI 10.0
[2024-08-23] MEDS: LEVOTHYROXINE SODIUM 50 MCG TABLET PO (06:07)
[2024-08-23 06:36] LABS: Basophils Absolute Auto 0.1 K/mm3 (0.0-0.1); Basophils Percent Auto 0.5 % (0.2-1.2); Eosinophils Absolute Auto 0.4 K/mm3 (0-0.3); Eosinophils Percent Auto 4.2 % (0-4.4); Hematocrit 38.6 % (37.0-47.0); Hemoglobin 11.9 g/dL (12.0-15.0); Immature Granulocyte Absolute 0.04 K/mm3 (0.00-0.031); Immature Granulocyte Percent A 0.4 % (0-0.5); Lymphocytes Absolute Auto 1.76 K/mm3 (0.9-3.2); Lymphocytes Percent Auto 18.3 % (18.3-44.2); Mean Corpuscular HGB Conc 30.8 g/dl (32-36); Mean Corpuscular Volume 97.2 fl (80-100); Monocytes Absolute Auto 0.9 K/mm3 (0.1-0.6); Neutrophils Absolute Auto 6.5 K/mm3 (1.3-6.7); Neutrophils Percent Auto 67.6 % (45.5-73.1); Platelet Count Result 244 k/mm3 (150-375); Red Blood Count 3.97 M/mm3 (4.2-5.4); Red Cell Distribution Width 16.1 % (11.5-14.5); White Blood Count 9.6 K/mm3 (4.5-10.0)
[2024-08-23 06:49] LABS: Glucose Point of Care 396 mg/dl (65-105)
[2024-08-23 06:51] LABS: Alanine Aminotransferase 11 U/L (6-35); Albumin Level 3.5 g/dL (3.5-5.1); Alkaline Phosphatase 98 U/L (38-126); Anion Gap 6 mmol/L (4-12); Aspartate Amino Transferase 22 U/L (14-36); Bilirubin,Total 0.8 mg/dL (0.2-1.3); Blood Urea Nitrogen 49 mg/dL (7-17); Carbon Dioxide 30 mmol/L (22-30); Chloride 99 mmol/L (98-107); Estimated CRCL calculation 28 ml/min; Estimated Glomerular Filt Rate 21; Glucose 313 mg/dL (65-110); Potassium 4.4 mmol/L (3.4-5.0); Sodium 135 mmol/L (137-145)
[2024-08-23] MEDS: IPRATROPIUM 0.5 MG/ALBUTEROL SULFATE 2.5 MG AMPUL.NEB 3 ML INHALATION ×3 (07:18→21:24)
[2024-08-23 08:34] LABS: Glucose Point of Care 341 mg/dl (65-105)
[2024-08-23] MEDS: CHOLECALCIFEROL 1,000 UNITS TABLET 2000 UNITS PO (08:38)
[2024-08-23] MEDS: SULFAMETHOXAZOLE/TRIMETHOPRIM 400/80 MG TABLET 1 TAB PO ×2 (08:38→20:53)
[2024-08-23] MEDS: ASPIRIN 81 MG ENTERIC TABLET PO (08:38)
[2024-08-23] MEDS: PANTOPRAZOLE 40 MG TABLET PO (08:38)
[2024-08-23] MEDS: ESCITALOPRAM OXALATE 10 MG TABLET 20 MG PO (08:38)
[2024-08-23] MEDS: FLUTICASONE PROPIONATE 0.05% NA SPR 16 GM BTL (*BKC) 2 SPRAY NASAL (08:39)
[2024-08-23] MEDS: ENOXAPARIN 40 MG/0.4 ML SYRINGE SUB-Q (08:39)
[2024-08-23] MEDS: INSULIN ASPART (*BKC) 100 UNITS/ML SUB-Q ×6 (08:40→21:01)
[2024-08-23] MEDS: METOPROLOL SUCCINATE EXT REL 25 MG TABCR PO (08:43)
--- NOTE | 2024-08-23 10:18 | P.PNIM_ITS ---
Progress Note: A&P Assessment and Plan (1) Confusion: Code(s): R41.0 - Disorientation, unspecified Status: Acute Assessment and Plan: patient with increasing altered mental status since admission, patient slow to responding, able follow simple commands, staring into space spoke with Dr. Mack over the phone with recommendations for MMA, TSH, T3, T4, B12 and folate, follow-up outpatient to 3 weeks for Alzheimer's workup EEG pending infectious workup completed and negative ABG within normal limits MRI shows Moderate nonspecific cerebral white matter disease and pontine disease, which likely represents chronic small vessel ischemic disease, stable from 05/26/2022. gabapentin, appear and narcotic medications held does not believe that this would be hospital induced delirium sleep hygiene reduced stimuli (2) UTI (urinary tract infection): Qualifiers: Hematuria presence: without hematuria Urinary tract infection type: site unspecified Qualified Code(s): N39.0 - Urinary tract infection, site not specified Code(s): N39.0 - Urinary tract infection, site not specified Status: Acute Assessment and Plan: * UA revealed cloudy urine appearance, 2+ urine glucose, positive nitrate, 2+ leukocyte, 51-100 urine WBC, 4+ urine bacteria. * Urine and blood culture was obtained and pending * patient was started on Rocephin * urine culture from 06/23/2023 revealed E coli which was essentially pansensitive except for Bactrim * switched to cefepipme IV to Septra * leukocytosis resolved (3) Acute respiratory failure with hypoxia: Code(s): J96.01 - Acute respiratory failure with hypoxia Status: Acute Assessment and Plan: * patient is not on any baseline oxygen during the day however is requiring 2-4 L nasal cannula now due to hypoxia in the ER with oxygen saturation of 87% on room air. 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 However she does not take any chronic anticoagulation * will also check troponin * EKG showing sinus rhythm with a rate of 66, QTC 423 08/18- V/Q scan ordered unable to do V/Q scan over the weekend. Cr is still high, cr cl too low/gfr low- risk for worsening of kidney functions- discussed with pt. -WELL's criteria for PE- 1.5%- low suspicion for PE- so will observe for now and hold off on scans 08/19- stable- no worsening symptoms-continue regimen and monitor Discussed with Dr Bergman- ok to do VQ scan-will proceed then to r/o PE 08/20- hr slightly elevated, rr elevated- wbc slightly increased. Switch antibiotics to cefepime- head CT, lactic acid, ABG. QTC 423 VQ scan - done- Low probability for pulmonary embolism. - switched to cefepime IV 08/23 cefepime switched to Septra (4) CHF (congestive heart failure), NYHA class I: Qualifiers: Congestive heart failure type: unspecified Qualified Code(s): I50.9 - Heart failure, unspecified Code(s): I50.9 - Heart failure, unspecified Status: Acute Assessment and Plan: * echocardiogram from 12/30/2021 showed normal LV systolic function with an estimated EF of 65-70%, grade 1 diastolic dysfunction. * Chest x-ray reporting airspace opacities in the lower lung zones likely atelectasis. After reviewing the chest x-ray myself and comparing it to a previous chest x-ray patient does appear to have pulmonary edema * proBNP ordered * a one time dose of 40 mg of IV Lasix ordered-- Will hold off on further diuresis considering renal function * consider nephrology consult if requiring further diuresis * echocardiogram EF 65-70% restart home Lasix (5) Type 2 diabetes mellitus: Qualifiers: Chronic kidney disease stage: stage 3 (moderate) Chronic kidney disease stage 3 subtype: stage 3b (GFR 30-44) Diabetes mellitus complication detail: with chronic kidney disease Diabetes mellitus complication status: with kidney complications Diabetes mellitus custodial insulin use: with terminal carman use Qualified Code(s): E11.22 - Type 2 diabetes mellitus with diabetic chronic kidney disease; N18.32 - Chronic kidney disease, stage 3b; Z79.4 - long-term (current) use of insulin Code(s): E11.9 - Type 2 diabetes mellitus without complications Status: Chronic Assessment and Plan: * Blood sugars ranging 201-260 * Hgb A1C 8.4 on 05/26/2022 * repeat hemoglobin A1c ordered * Accu checks AC/HS * high-dose SSI ordered * hypoglycemic protocol in place * Diabetic diet ordered * hold Farxiga and mealtime replacement insulin * hold Lantus for now considering reported blood sugar a 53, will reassess in the morning 08/19- BS had been high today- 380's * -order regular insulin x 1 and recheck * - continue high dose SS and hypoglycemia [protocol * -will add lantus 10 units and monitor as had been stable * -if continues to be elevated- will add base meal insulin 08/20 increased Lantus 08/22 Lantus increased and increase and mealtime insulin (6) Chronic kidney disease, stage IV (severe): Code(s): N18.4 - Chronic kidney disease, stage 4 (severe) Status: Chronic Assessment and Plan: * creatinine 2.9, EGFR 16 * baseline creatinine 2.10-2.60, baseline EGFR 18-23 * continue to trend * avoid nephrotoxic medications or testing with IV contrast * - nephrology consulted- PTH level urine calcium to creatinine ratio. (7) Hypertension: Code(s): I10 - Essential (primary) hypertension Status: Chronic Assessment and Plan: * blood pressure ranging 114/72-136/72 * continue carvedilol (8) Obstructive sleep apnea on CPAP: Code(s): G47.33 - Obstructive sleep apnea (adult) (pediatric); Z99.89 - Dependence on other enabling machines and devices Status: Chronic Assessment and Plan: * patient does not wear CPAP only wears 2L of oxygen at night only (9) Hyperlipidemia: Qualifiers: Hyperlipidemia type: other hyperlipidemia Qualified Code(s): E78.49 - Other hyperlipidemia Code(s): E78.5 - Hyperlipidemia, unspecified Status: Chronic Assessment and Plan: * continue atorvastatin and aspirin (10) Hypothyroidism: Qualifiers: Hypothyroidism type: acquired Qualified Code(s): E03.9 - Hypothyroidism, unspecified Code(s): E03.9 - Hypothyroidism, unspecified Status: Chronic Assessment and Plan: * continue Synthroid * TSH 1.9 (11) Elevated d-dimer: Code(s): R79.89 - Other specified abnormal findings of blood chemistry Status: Acute Assessment and Plan: * D-dimer 0.79 * Will get V/Q scan to rule out PE considering her history of DVT and PE in the past and is not currently on any anticoagulation * see Acute resp failure plan * VQ scan shows Low probability for pulmonary embolism. (12) Swelling of right hand: Code(s): M79.89 - Other specified soft tissue disorders Status: Acute Assessment and Plan: x-ray pending Time Spent With Patient Time: Includes review of chart, time spent family, consulting teams and nursing. Vital signs were reviewed and they are stable. His medications will be reviewed and resumed as appropriate. Findings and treatment plan were discussed with the patient. Questions were solicited and answered to satisfaction. Care plan was discussed with nursing. over 55 minutes of care Subjective Date/time seen: 08/23/24 10:18 Interval history: 74-year-old female with a significant past medical history of who presented to the ER with generalized weakness , hypoglycemia, pneumonia and UTI. patient's blood sugar has in the 300s 08/19, Lantus increased yesterday, blood sugars above 300s 1 time dose of NovoLog ordered. patient still with altered mental status, can follow simple commands today, delayed response to questions and staring off into the distance. Orders placed. Review of Systems Review of Systems: All systems reviewed & are unremarkable except as noted in HPI and below Constitutional: Constitutional: Reports as per HPI and Reports no additional constitutional complaints Eyes: Eyes: Reports as per HPI and Reports no additional eye complaints ENT: Reports system reviewed and no additional complaints, except as documented and Reports as per HPI Cardiovascular: Cardiovascular: Reports as per HPI and Reports no additional cardiovascular complaints Respiratory: Respiratory: Reports as per HPI and Reports no additional respiratory complaints Gastrointestinal: Gastrointestinal: Reports as per HPI and Reports no additional gastrointestinal complaints Genitourinary: Genitourinary: Reports no additional female genitourinary complaints and Reports as per HPI Musculoskeletal: Musculoskeletal: Reports no additional musculoskeletal c omplaints and Reports as per HPI Integumentary/Breasts: Skin/Breast: Reports system reviewed and no additional complaints, except as docu and Reports as per HPI Neurologic: Reports system reviewed and no additional complaints, except as documented and Reports as per HPI Psychiatric: Psychiatric: Reports no additional psychiatric complaints and Reports as per HPI Exam Narrative: General: Week appearance, well nourished, pleasant Head: atraumatic, no encephalopathy Eyes: PERRLA, sclera clear ENT: moist mucous membranes, nasal passages clear Neck: supple, no JVD, no adenopathy, trachea midline Cardiac: Normal S1 and S2. No murmur, gallops or friction rubs, peripheral pulses intact. Respiratory: Lungs clear in the upper lobes, diminished in the bases, currently on room air, no adventitious lung sounds noted Gastrointestinal: soft, non-distended, non-tender, normoactive bowel sounds. : voiding without difficulty via purewick, clear and yellow. Reports dysuria and urinary frequency Extremities: moves all extremities fair, 1 to 2+ pitting edema to bilateral lower extremity Skin: clean, dry, intact. No wounds or lesions. Neuro: Alert and oriented x 2, cranial nerves intact, no neuro deficits. Slow response Psych: flat Objective Data Vital Signs Vital Signs: Vital Signs - 24 hr 08/22/24 14:26 08/22/24 14:37 08/22/24 14:48 Temperature 97.4 F L Pulse Rate 94 92 94 Respiratory Rate 20 20 19 Blood Pressure 179/84 H Pulse Oximetry 95 Oxygen Delivery Oxygen Flow Rate 08/22/24 20:00 08/22/24 21:51 08/22/24 21:48 Temperature 98.4 F Pulse Rate 112 H 101 H Respiratory Rate 16 20 Blood Pressure 153/86 H Pulse Oximetry 95 94 Oxygen Delivery Nasal Cannula Oxygen Flow Rate 4 08/22/24 21:56 08/23/24 06:00 08/23/24 07:18 Temperature 97.2 F L Pulse Rate 102 H 105 H 102 H Respiratory Rate 20 18 18 Blood Pressure 162/64 H Pulse Oximetry 97 94 Oxygen Delivery Nasal Cannula Oxygen Flow Rate 3 08/23/24 07:18 08/23/24 07:28 08/23/24 08:43 Temperature Pulse Rate 102 H 100 109 H Respiratory Rate 18 18 Blood Pressure Pulse Oximetry Oxygen Delivery Oxygen Flow Rate 08/23/24 08:40 Temperature Pulse Rate Respiratory Rate Blood Pressure Pulse Oximetry 91 Oxygen Delivery Nasal Cannula Oxygen Flow Rate 4 Intake/Output Intake/Output: Intake & Output 08/20/24 08/21/24 08/22/24 08/23/24 23:59 23:59 23:59 23:59 Intake Total 2100 1390 730 850 Output Total 5399 308 7836 400 Balance 500 440 -370 450 Meds/Results Medications: Active Medications Generic Name Dose Route Start Last Admin Trade Name Freq PRN Reason Stop Dose Admin Acetaminophen 650 mg 08/17/24 16:39 08/22/24 20:31 Acetaminophen 325 Mg Tablet PO 650 mg Q4H PRN Administration Mild Pain (1-3) or Fever Hydrocodone Bitart/Acetaminophen 1 tab 08/18/24 14:16 08/18/24 21:39 Hydrocodone/Acetaminophen (*Crx) 5-325 Mg Tablet PO 1 tab Q4H PRN Administration Pain Rated 4-6 Albuterol/Ipratropium 3 ml 08/17/24 20:00 08/23/24 07:18 Ipratropium 0.5 Mg/Albuterol Sulfate 2.5 Mg Ampul.Neb 3 Ml INHALATION 3 ml Q6HRT KAELA Administration Allopurinol 300 mg 08/18/24 09:00 08/22/24 09:58 Allopurinol 300 Mg Tablet PO 300 mg DAILY KAELA Administration Amitriptyline HCl 10 mg 08/17/24 21:00 08/22/24 20:19 Amitriptyline Hcl 10 Mg Tablet PO 10 mg QHS KAELA Administration Aspirin 81 mg 08/18/24 09:00 08/23/24 08:38 Aspirin 81 Mg Enteric Tablet PO 81 mg QAM KAELA Administration Atorvastatin Calcium 10 mg 08/17/24 21:00 08/22/24 20:19 Atorvastatin 10 Mg Tablet PO 10 mg HS KAELA Administration Benzonatate 100 mg 08/17/24 20:42 08/22/24 20:19 Benzonatate 100 Mg Capsule PO 100 mg TID PRN Administration Cough Dextrose 12.5 gm 08/17/24 17:18 Dextrose 50% 25 Gm/50 Ml Syringe IV PUSH PRN PRN Hypoglycemia Protocol Enoxaparin Sodium 40 mg 08/23/24 09:00 08/23/24 08:39 Enoxaparin 40 Mg/0.4 Ml Syringe SUB-Q 40 mg DAILY KAELA Administration Escitalopram Oxalate 20 mg 08/18/24 09:00 08/23/24 08:38 Escitalopram Oxalate 10 Mg Tablet PO 20 mg DAILY KAELA Administration Fluticasone Propionate 2 spray 08/18/24 09:00 08/23/24 08:39 Fluticasone Propionate 0.05% Na Spr 16 Gm Btl (*Bkc) NASAL 2 spray DAILY KAELA Administration Furosemide 40 mg 08/18/24 09:00 Furosemide Inj 40 Mg/4 Ml Vial IV PUSH BID KAELA Gabapentin 300 mg 08/17/24 21:00 08/21/24 20:30 Gabapentin 300 Mg Capsule PO 300 mg QHS KAELA Administration Glucagon 1 mg 08/17/24 17:18 Glucagon For Inj 1 Mg Vial IM PRN PRN Hypoglycemia Protocol Glucose 15 gm 08/17/24 17:18 Glucose Oral Gel 15 Gm Of Glucse In 37.5 Gm Tube PO PRN PRN Hypoglycemia Protocol Dextrose 1,000 mls @ 100 mls/hr 08/17/24 17:18 Dextrose 5% 1,000 Ml IVPB PRN PRN Hypoglycemia Protocol Insulin Aspart 4 - 8 units 08/18/24 08:00 08/23/24 08:40 Insulin Aspart (*Bkc) 100 Units/Ml SUB-Q 6 units TIDWM KAELA Administration Protocol Insulin Aspart 2 - 4 units 08/17/24 21:00 08/22/24 21:48 Insulin Aspart (*Bkc) 100 Units/Ml SUB-Q 4 units HS KAELA Administration Protocol Insulin Aspart 3 units 08/20/24 12:00 08/23/24 08:41 Insulin Aspart (*Bkc) 100 Units/Ml SUB-Q 3 units TIDWM KAELA Administration Insulin Glargine 20 units 08/22/24 21:00 08/22/24 21:49 Insulin Glargine (*Bkc) 100 Units/Ml SUB-Q 20 units HS KAELA Administration Levothyroxine Sodium 50 mcg 08/18/24 06:30 08/23/24 06:07 Levothyroxine Sodium 50 Mcg Tablet PO 50 mcg DAILY@0630 KAELA Administration Metoprolol Succinate 25 mg 08/21/24 09:00 08/23/24 08:43 Metoprolol Succinate Ext Rel 25 Mg Tabcr PO 25 mg QAM KAELA Administration Ondansetron HCl 4 mg 08/17/24 17:17 Ondansetron Inj 4 Mg/2 Ml Vial IV PUSH Q6H PRN Nausea And Vomiting Pantoprazole Sodium 40 mg 08/18/24 09:00 08/23/24 08:38 Pantoprazole 40 Mg Tablet PO 40 mg QAM KAELA Administration Sodium Chloride 2 spray 08/17/24 20:42 Saline 0.65% Sha Soln 44 Ml Btl NASAL QID PRN nasal congestion/dryness Trimethoprim/Sulfamethoxazole 1 tab 08/23/24 09:00 08/23/24 08:38 Sulfamethoxazole/Trimethoprim 400/80 Mg Tablet PO 08/26/24 21:01 1 tab Q12HR KAELA Administration Vitamin D 2,000 units 08/18/24 09:00 08/23/24 08:38 Cholecalciferol 1,000 Units Tablet PO 2,000 units DAILY KAELA Administration Radiology Results: ITS Impressions Shoulder X-Ray 08/18/24 15:56 IMPRESSION: Osteopenia Head CT 08/20/24 09:56 IMPRESSION: 1. Stable moderate nonspecific cerebral white matter disease, which likely represents chronic small vessel ischemic disease. Pulmonary Perfusion Imaging 08/20/24 12:15 IMPRESSION: 1. Low probability for pulmonary embolism. Brain MRI 08/22/24 16:06 IMPRESSION: 1. Moderate nonspecific cerebral white matter disease and pontine disease, which likely represents chronic small vessel ischemic disease, stable from 05/26/2022. Chest X-Ray 08/22/24 18:38 IMPRESSION: Moderate interstitial edema. Subsegmental bibasilar atelectasis/consolidation. Possible small bilateral effusions. Labs Labs: Laboratory Results - last 24 hr 08/22/24 08/22/24 08/22/24 12:17 17:11 18:22 WBC RBC Hgb Hct MCV MCH MCHC RDW Plt Count MPV Immature Gran % (Auto) Neut % (Auto) Lymph % (Auto) Braxton % (Auto) Eos % (Auto) Baso % (Auto) Lymph # (Auto) Braxton # (Auto) Eos # (Auto) Baso # (Auto) Abs Immat Gran (auto) Absolute Neuts (auto) Absolute Nucleated RBC Nucleated RBC % Puncture Site Left radial ABG pH 7.465 H ABG pCO2 36.6 ABG pO2 66.5 L ABG PO2/FiO2 Ratio 1.85 ABG HCO3 25.7 ABG O2 Saturation 94.3 L ABG O2 Content 17.1 ABG Base Excess 2.2 A-a Gradient 147.7 Oxyhemoglobin 92.1 Total Hemoglobin 13.2 O2 Delivery Device Nasal cannula O2 Liters/Min 4.0 FiO2 36 Sodium Potassium Chloride Carbon Dioxide Anion Gap BUN Creatinine Estim Creat Clear Calc Estimated GFR Glucose POC Capillary Glucose 385 H 379 H Calcium Total Bilirubin AST ALT Alkaline Phosphatase Total Protein Albumin 08/22/24 08/23/24 08/23/24 21:35 06:20 08:24 WBC 9.6 RBC 3.97 L Hgb 11.9 L Hct 38.6 MCV 97.2 MCH 30.0 MCHC 30.8 L RDW 16.1 H Plt Count 244 MPV 10.0 Immature Gran % (Auto) 0.4 Neut % (Auto) 67.6 Lymph % (Auto) 18.3 Braxton % (Auto) 9.0 H Eos % (Auto) 4.2 Baso % (Auto) 0.5 Lymph # (Auto) 1.76 Braxton # (Auto) 0.9 H Eos # (Auto) 0.4 H Baso # (Auto) 0.1 Abs Immat Gran (auto) 0.04 H Absolute Neuts (auto) 6.5 Absolute Nucleated RBC 0.000 Nucleated RBC % 0.0 Puncture Site ABG pH ABG pCO2 ABG pO2 ABG PO2/FiO2 Ratio ABG HCO3 ABG O2 Saturation ABG O2 Content ABG Base Excess A-a Gradient Oxyhemoglobin Total Hemoglobin O2 Delivery Device O2 Liters/Min FiO2 Sodium 135 L Potassium 4.4 Chloride 99 Carbon Dioxide 30 Anion Gap 6 BUN 49 H Creatinine 2.30 H Estim Creat Clear Calc 28 Estimated GFR 21 L Glucose 313 H POC Capillary Glucose 396 H 341 H Calcium 11.0 H Total Bilirubin 0.8 AST 22 ALT 11 Alkaline Phosphatase 98 Total Protein 7.0 Albumin 3.5 Quality VTE Prophylaxis VTE prophylaxis: pharmacologic ordered Hospitalist MIPS Advance Care Plan I have confirmed that the patient's Advanced Care Plan is present, code status is documented, or surrogate decision maker is listed in patient medical record.: Yes Medication Reconciliation I have utilized all available resources to obtain, update and review the patients current medications (includes all prescriptions, OTC, herbals, cannabis, and nutritional supplements).: Yes
[2024-08-23] MEDS: INSULIN ASPART (*BKC) 100 UNITS/ML 7 UNITS SUB-Q (11:12)
[2024-08-23 11:32] LABS: Glucose Point of Care 374 mg/dl (65-105)
--- NOTE | 2024-08-23 12:03 | PC.NURSE ---
RN gave update to Beverly via telephone on patient status.
--- NOTE | 2024-08-23 13:52 | PM.PNNEP ---
Subjective Date/time seen: 08/23/24 13:52 Objective Data Vital Signs Vital Signs: Vital Signs Temp Pulse Resp BP Pulse Ox O2 Del Method O2 Flow Rate 08/23/24 13:40 97.4 F L 98 14 154/79 H 99 08/23/24 13:30 100 20 08/23/24 08:40 91 Nasal Cannula 4 08/23/24 08:43 109 H 08/23/24 07:28 100 18 08/23/24 07:18 102 H 18 08/23/24 07:18 102 H 18 94 Nasal Cannula 3 08/23/24 06:00 97.2 F L 105 H 18 162/64 H 97 08/22/24 21:56 102 H 20 08/22/24 21:48 101 H 20 08/22/24 21:51 98.4 F 112 H 16 153/86 H 94 08/22/24 20:00 95 Nasal Cannula 4 Intake/Output Intake/Output: Intake & Output 08/20/24 08/21/24 08/22/24 08/23/24 23:59 23:59 23:59 23:59 Intake Total 2100 1889 276 2822 Output Total 7017 832 7094 400 Balance 500 440 -370 700 Meds/Results Medications: Active Medications Generic Name Dose Route Start Last Admin Trade Name Freq PRN Reason Stop Dose Admin Acetaminophen 650 mg 08/17/24 16:39 08/22/24 20:31 Acetaminophen 325 Mg Tablet PO 650 mg Q4H PRN Administration Mild Pain (1-3) or Fever Hydrocodone Bitart/Acetaminophen 1 tab 08/18/24 14:16 08/18/24 21:39 Hydrocodone/Acetaminophen (*Crx) 5-325 Mg Tablet PO 1 tab Q4H PRN Administration Pain Rated 4-6 Albuterol/Ipratropium 3 ml 08/17/24 20:00 08/23/24 13:30 Ipratropium 0.5 Mg/Albuterol Sulfate 2.5 Mg Ampul.Neb 3 Ml INHALATION 3 ml Q6HRT KAELA Administration Allopurinol 300 mg 08/18/24 09:00 08/22/24 09:58 Allopurinol 300 Mg Tablet PO 300 mg DAILY KAELA Administration Amitriptyline HCl 10 mg 08/17/24 21:00 08/22/24 20:19 Amitriptyline Hcl 10 Mg Tablet PO 10 mg QHS KAELA Administration Aspirin 81 mg 08/18/24 09:00 08/23/24 08:38 Aspirin 81 Mg Enteric Tablet PO 81 mg QAM KAELA Administration Atorvastatin Calcium 10 mg 08/17/24 21:00 08/22/24 20:19 Atorvastatin 10 Mg Tablet PO 10 mg HS KAELA Administration Benzonatate 100 mg 08/17/24 20:42 08/22/24 20:19 Benzonatate 100 Mg Capsule PO 100 mg TID PRN Administration Cough Dextrose 12.5 gm 08/17/24 17:18 Dextrose 50% 25 Gm/50 Ml Syringe IV PUSH PRN PRN Hypoglycemia Protocol Empagliflozin 10 mg 08/24/24 09:00 Empagliflozin 10 Mg Tablet BY MOUTH DAILY KAELA Enoxaparin Sodium 40 mg 08/23/24 09:00 08/23/24 08:39 Enoxaparin 40 Mg/0.4 Ml Syringe SUB-Q 40 mg DAILY KAELA Administration Escitalopram Oxalate 20 mg 08/18/24 09:00 08/23/24 08:38 Escitalopram Oxalate 10 Mg Tablet PO 20 mg DAILY KAELA Administration Fluticasone Propionate 2 spray 08/18/24 09:00 08/23/24 08:39 Fluticasone Propionate 0.05% Na Spr 16 Gm Btl (*Bkc) NASAL 2 spray DAILY KAELA Administration Furosemide 40 mg 08/18/24 09:00 Furosemide Inj 40 Mg/4 Ml Vial IV PUSH BID KAELA Furosemide 80 mg 08/23/24 15:00 Furosemide 80 Mg Tablet PO BID@0800,1400 [facility] Gabapentin 300 mg 08/17/24 21:00 08/21/24 20:30 Gabapentin 300 Mg Capsule PO 300 mg QHS KAELA Administration Glucagon 1 mg 08/17/24 17:18 Glucagon For Inj 1 Mg Vial IM PRN PRN Hypoglycemia Protocol Glucose 15 gm 08/17/24 17:18 Glucose Oral Gel 15 Gm Of Glucse In 37.5 Gm Tube PO PRN PRN Hypoglycemia Protocol Dextrose 1,000 mls @ 100 mls/hr 08/17/24 17:18 Dextrose 5% 1,000 Ml IVPB PRN PRN Hypoglycemia Protocol Insulin Aspart 4 - 8 units 08/18/24 08:00 08/23/24 11:15 Insulin Aspart (*Bkc) 100 Units/Ml SUB-Q 8 units TIDWM KAELA Administration Protocol Insulin Aspart 2 - 4 units 08/17/24 21:00 08/22/24 21:48 Insulin Aspart (*Bkc) 100 Units/Ml SUB-Q 4 units HS [facility] Administration Protocol Insulin Aspart 6 units 08/23/24 17:00 Insulin Aspart (*Bkc) 100 Units/Ml SUB-Q TIDWM KAELA Insulin Glargine 25 units 08/23/24 21:00 Insulin Glargine (*Bkc) 100 Units/Ml SUB-Q HS [facility] Levothyroxine Sodium 50 mcg 08/18/24 06:30 08/23/24 06:07 Levothyroxine Sodium 50 Mcg Tablet PO 50 mcg DAILY@0630 KAELA Administration Metoprolol Succinate 25 mg 08/21/24 09:00 08/23/24 08:43 Metoprolol Succinate Ext Rel 25 Mg Tabcr PO 25 mg QAM KAELA Administration Ondansetron HCl 4 mg 08/17/24 17:17 Ondansetron Inj 4 Mg/2 Ml Vial IV PUSH Q6H PRN Nausea And Vomiting Pantoprazole Sodium 40 mg 08/18/24 09:00 08/23/24 08:38 Pantoprazole 40 Mg Tablet PO 40 mg QAM [facility] Administration Sodium Chloride 2 spray 08/17/24 20:42 Saline 0.65% Sha Soln 44 Ml Btl NASAL QID PRN nasal congestion/dryness Trimethoprim/Sulfamethoxazole 1 tab 08/23/24 09:00 08/23/24 08:38 Sulfamethoxazole/Trimethoprim 400/80 Mg Tablet PO 08/26/24 21:01 1 tab Q12HR KAELA Administration Vitamin D 2,000 units 08/18/24 09:00 08/23/24 08:38 Cholecalciferol 1,000 Units Tablet PO 2,000 units DAILY KAELA Administration Radiology Results: ITS Impressions Shoulder X-Ray 08/18/24 15:56 IMPRESSION: Osteopenia Head CT 08/20/24 09:56 IMPRESSION: 1. Stable moderate nonspecific cerebral white matter disease, which likely represents chronic small vessel ischemic disease. Pulmonary Perfusion Imaging 08/20/24 12:15 IMPRESSION: 1. Low probability for pulmonary embolism. Brain MRI 08/22/24 16:06 IMPRESSION: 1. Moderate nonspecific cerebral white matter disease and pontine disease, which likely represents chronic small vessel ischemic disease, stable from 05/26/2022. Chest X-Ray 08/22/24 18:38 IMPRESSION: Moderate interstitial edema. Subsegmental bibasilar atelectasis/consolidation. Possible small bilateral effusions. Hand X-Ray 08/23/24 15:26 IMPRESSION: Possible fracture in the distal radius. Clinical correlation and proper images are advised. Slight narrowing of the proximal and distal interphalangeal joints. Labs Labs: Laboratory Tests 08/23/24 06:20 08/23/24 06:20 Calcium 11.0 H Total Bilirubin 0.8 AST 22 ALT 11 Alkaline Phosphatase 98 Total Protein 7.0 Albumin 3.5 Microbiology 08/17/24 17:45 Blood Blood Culture - Final 08/17/24 15:37 Blood Blood Culture - Final
[2024-08-23 15:03] LABS: Lactic Acid Reflex 1.3 mmol/L (0.7-2.0)
[2024-08-23 15:27] LABS: Ammonia < 9 umol/L (9-30)
[2024-08-23] MEDS: FUROSEMIDE 80 MG TABLET PO (16:42)
[2024-08-23 16:44] LABS: Vitamin D 1,25 (OH)2 Total 25 pg/mL (18-72); Vitamin D2 1,25 (OH)2 <8 pg/mL; Vitamin D3 1,25 (OH)2 25 pg/mL
[2024-08-23] MEDS: INSULIN ASPART (*BKC) 100 UNITS/ML 6 UNITS SUB-Q (16:44)
[2024-08-23 16:54] LABS: Glucose Point of Care 326 mg/dl (65-105)
[2024-08-23 18:14] LABS: T4 Thyroxine 6.68 ug/dL (5.53-11.0)
[2024-08-23 19:04] LABS: Folic Acid 7.9 ng/mL (2.76->20)
[2024-08-23 20:53] LABS: Glucose Point of Care 360 mg/dl (65-105)
[2024-08-23] MEDS: ATORVASTATIN 10 MG TABLET PO (20:54)
[2024-08-23] MEDS: AMITRIPTYLINE HCL 10 MG TABLET PO (20:54)
[2024-08-23] MEDS: INSULIN GLARGINE (*BKC) 100 UNITS/ML 25 UNITS SUB-Q (21:00)
[2024-08-24] VITALS (15 sets, daily range): BP systolic 140–161; BP diastolic 81–85; PULSE 94–118; RESP 16–20; TEMP 36.1–36.4; O2SAT 91–99
[2024-08-24] MEDS: IPRATROPIUM 0.5 MG/ALBUTEROL SULFATE 2.5 MG AMPUL.NEB 3 ML INHALATION ×4 (04:04→20:55)
[2024-08-24] MEDS: LEVOTHYROXINE SODIUM 50 MCG TABLET PO (05:30)
[2024-08-24 06:08] LABS: Alanine Aminotransferase 12 U/L (6-35); Albumin Level 3.6 g/dL (3.5-5.1); Alkaline Phosphatase 106 U/L (38-126); Anion Gap 7 mmol/L (4-12); Aspartate Amino Transferase 18 U/L (14-36); Bilirubin,Total 0.5 mg/dL (0.2-1.3); Blood Urea Nitrogen 47 mg/dL (7-17); Calcium 11.1 mg/dL (8.4-10.2); Carbon Dioxide 29 mmol/L (22-30); Chloride 98 mmol/L (98-107); Estimated CRCL calculation 28 ml/min; Estimated Glomerular Filt Rate 21; Glucose 355 mg/dL (65-110); Potassium 4.1 mmol/L (3.4-5.0); Sodium 134 mmol/L (137-145)
[2024-08-24 06:12] LABS: Basophils Percent Auto 0.4 % (0.2-1.2); Eosinophils Absolute Auto 0.5 K/mm3 (0-0.3); Eosinophils Percent Auto 5.8 % (0-4.4); Hematocrit 37.6 % (37.0-47.0); Hemoglobin 11.6 g/dL (12.0-15.0); Immature Granulocyte Absolute 0.03 K/mm3 (0.00-0.031); Immature Granulocyte Percent A 0.3 % (0-0.5); Lymphocytes Absolute Auto 1.91 K/mm3 (0.9-3.2); Lymphocytes Percent Auto 21.2 % (18.3-44.2); Mean Corpuscular HGB Conc 30.9 g/dl (32-36); Mean Corpuscular Hemoglobin 29.9 pg (26-34); Mean Corpuscular Volume 96.9 fl (80-100); Mean Platelet Volume 9.8 fl (7.4-10.4); Monocytes Absolute Auto 0.8 K/mm3 (0.1-0.6); Monocytes Percent Auto 8.9 % (2.6-8.5); Neutrophils Absolute Auto 5.7 K/mm3 (1.3-6.7); Neutrophils Percent Auto 63.4 % (45.5-73.1); Platelet Count Result 252 k/mm3 (150-375); Red Blood Count 3.88 M/mm3 (4.2-5.4); Red Cell Distribution Width 15.9 % (11.5-14.5)
[2024-08-24 08:32] LABS: Glucose Point of Care 354 mg/dl (65-105)
--- NOTE | 2024-08-24 08:48 | PCNWS ---
Weekly nutritional screen. Patient is tolerating current diet with adequate intake. No weight loss reported. No nutritional needs at this time.
[2024-08-24] MEDS: INSULIN ASPART (*BKC) 100 UNITS/ML 6 UNITS SUB-Q ×2 (09:06→12:52)
[2024-08-24] MEDS: INSULIN ASPART (*BKC) 100 UNITS/ML SUB-Q ×4 (09:06→21:29)
--- NOTE | 2024-08-24 09:06 | P.PNIM_ITS ---
Progress Note: A&P Assessment and Plan (1) Confusion: Code(s): R41.0 - Disorientation, unspecified Status: Acute Assessment and Plan: patient with increasing altered mental status since admission, patient slow to responding, able follow simple commands, staring into space spoke with Dr. Mack over the phone with recommendations for MMA, TSH, T3, T4, B12 and folate, follow-up outpatient to 3 weeks for Alzheimer's workup EEG pending infectious workup completed and negative ABG within normal limits MRI shows Moderate nonspecific cerebral white matter disease and pontine disease, which likely represents chronic small vessel ischemic disease, stable from 05/26/2022. gabapentin, allopurinol and narcotic medications held eeg pending sleep hygiene reduced stimuli confusion appears to be a mix possible dementia hospital-acquired hypoactive delirium and may be psychiatric issues (2) UTI (urinary tract infection): Qualifiers: Hematuria presence: without hematuria Urinary tract infection type: site unspecified Qualified Code(s): N39.0 - Urinary tract infection, site not specified Code(s): N39.0 - Urinary tract infection, site not specified Status: Acute Assessment and Plan: * UA revealed cloudy urine appearance, 2+ urine glucose, positive nitrate, 2+ leukocyte, 51-100 urine WBC, 4+ urine bacteria. * Urine and blood culture was obtained and pending * patient was started on Rocephin * urine culture from 06/23/2023 revealed E coli which was essentially pansensitive except for Bactrim * switched to cefepipme IV to Septra * leukocytosis resolved (3) Acute respiratory failure with hypoxia: Code(s): J96.01 - Acute respiratory failure with hypoxia Status: Acute Assessment and Plan: * patient is not on any baseline oxygen during the day however is requiring 2-4 L nasal cannula now due to hypoxia in the ER with oxygen saturation of 87% on room air. 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 However she does not take any chronic anticoagulation * will also check troponin * EKG showing sinus rhythm with a rate of 66, QTC 423 08/18- V/Q scan ordered unable to do V/Q scan over the weekend. Cr is still high, cr cl too low/gfr low- risk for worsening of kidney functions- discussed with pt. -WELL's criteria for PE- 1.5%- low suspicion for PE- so will observe for now and hold off on scans 08/19- stable- no worsening symptoms-continue regimen and monitor Discussed with Dr Bergman- ok to do VQ scan-will proceed then to r/o PE 08/20- hr slightly elevated, rr elevated- wbc slightly increased. Switch antibiotics to cefepime- head CT, lactic acid, ABG. QTC 423 VQ scan - done- Low probability for pulmonary embolism. - switched to cefepime IV 08/23 cefepime switched to Septra (4) CHF (congestive heart failure), NYHA class I: Qualifiers: Congestive heart failure type: unspecified Qualified Code(s): I50.9 - Heart failure, unspecified Code(s): I50.9 - Heart failure, unspecified Status: Acute Assessment and Plan: * echocardiogram from 12/30/2021 showed normal LV systolic function with an estimated EF of 65-70%, grade 1 diastolic dysfunction. * Chest x-ray reporting airspace opacities in the lower lung zones likely atelectasis. After reviewing the chest x-ray myself and comparing it to a previous chest x-ray patient does appear to have pulmonary edema * proBNP ordered * a one time dose of 40 mg of IV Lasix ordered-- Will hold off on further diuresis considering renal function * consider nephrology consult if requiring further diuresis * echocardiogram EF 65-70% restart home Lasix +1 pedal edema (5) Type 2 diabetes mellitus: Qualifiers: Chronic kidney disease stage: stage 3 (moderate) Chronic kidney disease stage 3 subtype: stage 3b (GFR 30-44) Diabetes mellitus complication detail: with chronic kidney disease Diabetes mellitus complication status: with kidney complications Diabetes mellitus buttermaker continuous churn insulin use: with half-way use Qualified Code(s): E11.22 - Type 2 diabetes mellitus with diabetic chronic kidney disease; N18.32 - Chronic kidney disease, stage 3b; Z79.4 - skilled nursing (current) use of insulin Code(s): E11.9 - Type 2 diabetes mellitus without complications Status: Chronic Assessment and Plan: * Blood sugars ranging 201-260 * Hgb A1C 8.4 on 05/26/2022 * repeat hemoglobin A1c ordered * Accu checks AC/HS * high-dose SSI ordered * hypoglycemic protocol in place * Diabetic diet ordered * hold Farxiga and mealtime replacement insulin * hold Lantus for now considering reported blood sugar a 53, will reassess in the morning 08/19- BS had been high today- 380's * -order regular insulin x 1 and recheck * - continue high dose SS and hypoglycemia [protocol * -will add Lantus 10 units and monitor as had been stable * -if continues to be elevated- will add base meal insulin 08/20 increased Lantus 08/22 Lantus increased and increase and mealtime insulin 08/23 Lantus increased and increase and mealtime insulin 08/24 Lantus increased and increase and mealtime insulin (6) Chronic kidney disease, stage IV (severe): Code(s): N18.4 - Chronic kidney disease, stage 4 (severe) Status: Chronic Assessment and Plan: * creatinine 2.9, EGFR 16 * baseline creatinine 2.10-2.60, baseline EGFR 18-23 * continue to trend * avoid nephrotoxic medications or testing with IV contrast * - nephrology consulted- PTH level urine calcium to creatinine ratio. (7) Hypertension: Code(s): I10 - Essential (primary) hypertension Status: Chronic Assessment and Plan: * blood pressure ranging 114/72-136/72 * continue carvedilol (8) Obstructive sleep apnea on CPAP: Code(s): G47.33 - Obstructive sleep apnea (adult) (pediatric); Z99.89 - Dependence on other enabling machines and devices Status: Chronic Assessment and Plan: * patient does not wear CPAP only wears 2L of oxygen at night only (9) Hyperlipidemia: Qualifiers: Hyperlipidemia type: other hyperlipidemia Qualified Code(s): E78.49 - Other hyperlipidemia Code(s): E78.5 - Hyperlipidemia, unspecified Status: Chronic Assessment and Plan: * continue atorvastatin and aspirin (10) Hypothyroidism: Qualifiers: Hypothyroidism type: acquired Qualified Code(s): E03.9 - Hypothyroidism, unspecified Code(s): E03.9 - Hypothyroidism, unspecified Status: Chronic Assessment and Plan: * continue Synthroid * TSH 1.9 (11) Elevated d-dimer: Code(s): R79.89 - Other specified abnormal findings of blood chemistry Status: Acute Assessment and Plan: * D-dimer 0.79 * Will get V/Q scan to rule out PE considering her history of DVT and PE in the past and is not currently on any anticoagulation * see Acute resp failure plan * VQ scan shows Low probability for pulmonary embolism. (12) Swelling of right hand: Code(s): M79.89 - Other specified soft tissue disorders Status: Acute Assessment and Plan: possible radial fracture orthopedics consulted pending recommendations Time Spent With Patient Time with patient: Greater than 35 minutes Subjective Date/time seen: 08/24/24 09:06 Interval history: 74-year-old female with a significant past medical history of who presented to the ER with generalized weakness , hypoglycemia, pneumonia and UTI. patient's blood sugar has in the 300s 08/19, Lantus increased, blood sugars above 300s 1 time dose of NovoLog ordered. right hand x-ray shows possible right radial fracture, orthopedics consulted, EEG pending called by nursing due to patient coughing while eating speech consulted for swallow eval, patient coughing during swallow evaluation will order modified barium speech recommending level 6 patient accepted to Rehab Review of Systems Review of Systems: All systems reviewed & are unremarkable except as noted in HPI and below Constitutional: Constitutional: Reports as per HPI and Reports no additional constitutional complaints Eyes: Eyes: Reports as per HPI and Reports no additional eye complaints ENT: Reports system reviewed and no additional complaints, except as documented and Reports as per HPI Cardiovascular: Cardiovascular: Reports as per HPI and Reports no additional cardiovascular complaints Respiratory: Respiratory: Reports as per HPI and Reports no additional respiratory complaints Gastrointestinal: Gastrointestinal: Reports as per HPI and Reports no additional gastrointestinal complaints Genitourinary: Genitourinary: Reports no additional female genitourinary complaints and Reports as per HPI Musculoskeletal: Musculoskeletal: Reports no additional musculoskeletal complaints and Reports as per HPI Integumentary/Breasts: Skin/Breast: Reports system reviewed and no additional complaints, except as docu and Reports as per HPI Neurologic: Reports system reviewed and no additional complaints, except as documented and Reports as per HPI Psychiatric: Psychiatric: Reports no additional psychiatric complaints and Reports as per HPI Exam Narrative: General: Week appearance, well nourished, pleasant Head: atraumatic, no encephalopathy Eyes: PERRLA, sclera clear ENT: moist mucous membranes, nasal passages clear Neck: supple, no JVD, no adenopathy, trachea midline Cardiac: Normal S1 and S2. No murmur, gallops or friction rubs, peripheral pulses intact. Respiratory: Lungs clear in the upper lobes, diminished in the bases, currently on room air, no adventitious lung sounds noted Gastrointestinal: soft, non-distended, non-tender, normoactive bowel sounds. : voiding without difficulty via purewick, clear and yellow. Reports dysuria and urinary frequency Extremities: moves all extremities fair, 1 to 2+ pitting edema to bilateral lower extremity Skin: clean, dry, intact. No wounds or lesions. Neuro: Alert and oriented x 2, cranial nerves intact, no neuro deficits. Slow response Psych: laughs when asked questions Objective Data Vital Signs Vital Signs: Vital Signs - 24 hr 08/23/24 13:30 08/23/24 13:40 08/23/24 14:00 Temperature 97.4 F L Pulse Rate 100 102 H 98 Respiratory Rate 20 20 14 Blood Pressure 154/79 H Pulse Oximetry 99 Oxygen Delivery Oxygen Flow Rate Fraction of Inspired Oxygen 08/23/24 21:44 08/23/24 21:25 08/23/24 21:35 Temperature 97.6 F Pulse Rate 105 H 96 99 Respiratory Rate 16 20 20 Blood Pressure 149/87 H Pulse Oximetry 94 Oxygen Delivery Oxygen Flow Rate Fraction of Inspired Oxygen 08/23/24 21:25 08/24/24 04:05 08/24/24 04:13 Temperature Pulse Rate 94 95 Respiratory Rate 20 20 Blood Pressure Pulse Oximetry 94 Oxygen Delivery Nasal Cannula Oxygen Flow Rate 4 Fraction of Inspired Oxygen 08/24/24 06:00 08/24/24 07:36 08/24/24 07:36 Temperature 97.0 F L Pulse Rate 99 98 Respiratory Rate 16 20 Blood Pressure 161/81 H Pulse Oximetry 93 94 Oxygen Delivery Nasal Cannula Oxygen Flow Rate 4 Fraction of Inspired Oxygen 36 08/24/24 07:52 Temperature Pulse Rate 102 H Respiratory Rate 20 Blood Pressure Pulse Oximetry Oxygen Delivery Oxygen Flow Rate Fraction of Inspired Oxygen Intake/Output Intake/Output: Intake & Output 10/29/24 10/30/24 10/31/24 11/01/24 23:59 23:59 23:59 23:59 Intake Total 9813 412 2942 600 Output Total 950 1100 1000 1000 Balance 440 -370 550 -400 Meds/Results Medications: Active Medications Generic Name Dose Route Start Last Admin Trade Name Freq PRN Reason Stop Dose Admin Acetaminophen 650 mg 08/17/24 16:39 08/22/24 20:31 Acetaminophen 325 Mg Tablet PO 650 mg Q4H PRN Administration Mild Pain (1-3) or Fever Hydrocodone Bitart/Acetaminophen 1 tab 08/18/24 14:16 08/18/24 21:39 Hydrocodone/Acetaminophen (*Crx) 5-325 Mg Tablet PO 1 tab Q4H PRN Administration Pain Rated 4-6 Albuterol/Ipratropium 3 ml 08/17/24 20:00 08/24/24 07:36 Ipratropium 0.5 Mg/Albuterol Sulfate 2.5 Mg Ampul.Neb 3 Ml INHALATION 3 ml Q6HRT KAELA Administration Allopurinol 300 mg 08/18/24 09:00 08/22/24 09:58 Allopurinol 300 Mg Tablet PO 300 mg DAILY KAELA Administration Amitriptyline HCl 10 mg 08/17/24 21:00 08/23/24 20:54 Amitriptyline Hcl 10 Mg Tablet PO 10 mg QHS KAELA Administration Aspirin 81 mg 08/18/24 09:00 08/23/24 08:38 Aspirin 81 Mg Enteric Tablet PO 81 mg QAM KAELA Administration Atorvastatin Calcium 10 mg 08/17/24 21:00 08/23/24 20:54 Atorvastatin 10 Mg Tablet PO 10 mg HS KAELA Administration Benzonatate 100 mg 08/17/24 20:42 08/22/24 20:19 Benzonatate 100 Mg Capsule PO 100 mg TID PRN Administration Cough Dextrose 12.5 gm 08/17/24 17:18 Dextrose 50% 25 Gm/50 Ml Syringe IV PUSH PRN PRN Hypoglycemia Protocol Empagliflozin 10 mg 08/24/24 09:00 Empagliflozin 10 Mg Tablet BY MOUTH DAILY [facility] Enoxaparin Sodium 40 mg 08/23/24 09:00 08/23/24 08:39 Enoxaparin 40 Mg/0.4 Ml Syringe SUB-Q 40 mg DAILY KAELA Administration Escitalopram Oxalate 20 mg 08/18/24 09:00 08/23/24 08:38 Escitalopram Oxalate 10 Mg Tablet PO 20 mg DAILY KAELA Administration Fluticasone Propionate 2 spray 08/18/24 09:00 08/23/24 08:39 Fluticasone Propionate 0.05% Na Spr 16 Gm Btl (*Bkc) NASAL 2 spray DAILY KAELA Administration Furosemide 40 mg 08/18/24 09:00 Furosemide Inj 40 Mg/4 Ml Vial IV PUSH BID KAELA Furosemide 80 mg 08/23/24 15:00 08/23/24 16:42 Furosemide 80 Mg Tablet PO 80 mg BID@0800,1400 KAELA Administration Gabapentin 300 mg 08/17/24 21:00 08/21/24 20:30 Gabapentin 300 Mg Capsule PO 300 mg QHS KAELA Administration Glucagon 1 mg 08/17/24 17:18 Glucagon For Inj 1 Mg Vial IM PRN PRN Hypoglycemia Protocol Glucose 15 gm 08/17/24 17:18 Glucose Oral Gel 15 Gm Of Glucse In 37.5 Gm Tube PO PRN PRN Hypoglycemia Protocol Dextrose 1,000 mls @ 100 mls/hr 08/17/24 17:18 Dextrose 5% 1,000 Ml IVPB PRN PRN Hypoglycemia Protocol Insulin Aspart 4 - 8 units 08/18/24 08:00 08/23/24 16:44 Insulin Aspart (*Bkc) 100 Units/Ml SUB-Q 6 units TIDWM KAELA Administration Protocol Insulin Aspart 2 - 4 units 08/17/24 21:00 08/23/24 21:01 Insulin Aspart (*Bkc) 100 Units/Ml SUB-Q 4 units HS KAELA Administration Protocol Insulin Aspart 6 units 08/23/24 17:00 08/23/24 16:44 Insulin Aspart (*Bkc) 100 Units/Ml SUB-Q 6 units TIDWM KAELA Administration Insulin Glargine 25 units 08/23/24 21:00 08/23/24 21:00 Insulin Glargine (*Bkc) 100 Units/Ml SUB-Q 25 units HS KAELA Administration Levothyroxine Sodium 50 mcg 08/18/24 06:30 08/24/24 05:30 Levothyroxine Sodium 50 Mcg Tablet PO 50 mcg DAILY@0630 KAELA Administration Metoprolol Succinate 25 mg 08/21/24 09:00 08/23/24 08:43 Metoprolol Succinate Ext Rel 25 Mg Tabcr PO 25 mg QAM KAELA Administration Ondansetron HCl 4 mg 08/17/24 17:17 Ondansetron Inj 4 Mg/2 Ml Vial IV PUSH Q6H PRN Nausea And Vomiting Pantoprazole Sodium 40 mg 08/18/24 09:00 08/23/24 08:38 Pantoprazole 40 Mg Tablet PO 40 mg QAM KAELA Administration Sodium Chloride 2 spray 08/17/24 20:42 Saline 0.65% Sha Soln 44 Ml Btl NASAL QID PRN nasal congestion/dryness Trimethoprim/Sulfamethoxazole 1 tab 08/23/24 09:00 08/23/24 20:53 Sulfamethoxazole/Trimethoprim 400/80 Mg Tablet PO 08/26/24 21:01 1 tab Q12HR KAELA Administration Vitamin D 2,000 units 08/18/24 09:00 08/23/24 08:38 Cholecalciferol 1,000 Units Tablet PO 2,000 units DAILY KAELA Administration Radiology Results: ITS Impressions Shoulder X-Ray 08/18/24 15:56 IMPRESSION: Osteopenia Head CT 08/20/24 09:56 IMPRESSION: 1. Stable moderate nonspecific cerebral white matter disease, which likely represents chronic small vessel ischemic disease. Pulmonary Perfusion Imaging 08/20/24 12:15 IMPRESSION: 1. Low probability for pulmonary embolism. Brain MRI 08/22/24 16:06 IMPRESSION: 1. Moderate nonspecific cerebral white matter disease and pontine disease, which likely represents chronic small vessel ischemic disease, stable from 05/26/2022. Chest X-Ray 08/22/24 18:38 IMPRESSION: Moderate interstitial edema. Subsegmental bibasilar atelectasis/consolidation. Possible small bilateral effusions. Hand X-Ray 08/23/24 15:26 IMPRESSION: Possible fracture in the distal radius. Clinical correlation and proper images are advised. Slight narrowing of the proximal and distal interphalangeal joints. Labs Labs: Laboratory Results - last 24 hr 08/18/24 08/23/24 08/23/24 05:20 06:15 11:14 WBC RBC Hgb Hct MCV MCH MCHC RDW Plt Count MPV Immature Gran % (Auto) Neut % (Auto) Lymph % (Auto) Stearns % (Auto) Eos % (Auto) Baso % (Auto) Lymph # (Auto) Stearns # (Auto) Eos # (Auto) Baso # (Auto) Abs Immat Gran (auto) Absolute Neuts (auto) Absolute Nucleated RBC Nucleated RBC % Sodium Potassium Chloride Carbon Dioxide Anion Gap BUN Creatinine Estim Creat Clear Calc Estimated GFR Glucose POC Capillary Glucose 374 H Lactic Acid Calcium Total Bilirubin AST ALT Alkaline Phosphatase Ammonia Total Protein Albumin Vitamin B12 303.0 Vit D 1,25-Dihyd Total 25 1,25 Dihydroxy Vit D2 <8 1,25 Dihydroxy Vit D3 25 Folate 7.9 TSH 3.270 Thyroxine (T4) 6.68 08/23/24 08/23/24 08/23/24 14:42 16:40 19:48 WBC RBC Hgb Hct MCV MCH MCHC RDW Plt Count MPV Immature Gran % (Auto) Neut % (Auto) Lymph % (Auto) Stearns % (Auto) Eos % (Auto) Baso % (Auto) Lymph # (Auto) Stearns # (Auto) Eos # (Auto) Baso # (Auto) Abs Immat Gran (auto) Absolute Neuts (auto) Absolute Nucleated RBC Nucleated RBC % Sodium Potassium Chloride Carbon Dioxide Anion Gap BUN Creatinine Estim Creat Clear Calc Estimated GFR Glucose POC Capillary Glucose 326 H 360 H Lactic Acid 1.3 Calcium Total Bilirubin AST ALT Alkaline Phosphatase Ammonia < 9 L Total Protein Albumin Vitamin B12 Vit D 1,25-Dihyd Total 1,25 Dihydroxy Vit D2 1,25 Dihydroxy Vit D3 Folate TSH Thyroxine (T4) 08/24/24 08/24/24 05:37 08:11 WBC 9.0 RBC 3.88 L Hgb 11.6 L Hct 37.6 MCV 96.9 MCH 29.9 MCHC 30.9 L RDW 15.9 H Plt Count 252 MPV 9.8 Immature Gran % (Auto) 0.3 Neut % (Auto) 63.4 Lymph % (Auto) 21.2 Stearns % (Auto) 8.9 H Eos % (Auto) 5.8 H Baso % (Auto) 0.4 Lymph # (Auto) 1.91 Stearns # (Auto) 0.8 H Eos # (Auto) 0.5 H Baso # (Auto) 0.0 Abs Immat Gran (auto) 0.03 Absolute Neuts (auto) 5.7 Absolute Nucleated RBC 0.000 Nucleated RBC % 0.0 Sodium 134 L Potassium 4.1 Chloride 98 Carbon Dioxide 29 Anion Gap 7 BUN 47 H Creatinine 2.30 H Estim Creat Clear Calc 28 Estimated GFR 21 L Glucose 355 H POC Capillary Glucose 354 H Lactic Acid Calcium 11.1 H Total Bilirubin 0.5 AST 18 ALT 12 Alkaline Phosphatase 106 Ammonia Total Protein 7.0 Albumin 3.6 Vitamin B12 Vit D 1,25-Dihyd Total 1,25 Dihydroxy Vit D2 1,25 Dihydroxy Vit D3 Folate TSH Thyroxine (T4) Imaging Radiologist's impression: MODIFIED ESOPHAGRAM HISTORY: Witnessed choking episode TECHNIQUE: Modified barium esophagram was performed on 08/24/2024. I administered fluoroscopy and performed the exam with speech pathologist. Patient was seated for lateral fluoroscopic imaging for ingestion of thin liquids, pudding, solids and quantified amounts, followed by thin liquids in uncontrolled amounts. This was recorded on tape. A single fluoroscopic spot image was also recorded. The DAP for this procedure was 5.243 Gycm2. The amount of fluoroscopy time used during this procedure was 2.9 minutes. FINDINGS: Oral stage: Adequate function. Pharyngeal stage: Adequate function. Trace piriform sinus residue which appear without effect. There was transient/flash relatively shallow laryngeal penetration without aspiration. Cervical/esophageal stage: Adequate function. IMPRESSION: Minimal pharyngeal dysphagia with trace shallow laryngeal penetration without aspiration. Please correlate with speech pathologist findings and specific feeding recommendations. XR forearm RT 2V DATE: 08/24/2024 10:55 INDICATION: Right hand pain and swelling. Distal radius fracture. TECHNIQUE: 2 views of right radius were obtained. COMPARISON: Right hand radiographs 08/23/2024 FINDINGS: Alignment is normal. No fracture. There is mild elbow joint osteoarthritis. There are loose bodies in the radiocarpal compartment. There is chondrocalcinosis in the wrist. No elbow joint effusion. IMPRESSION: 1. No fracture identified. 2. Loose bodies in the radiocarpal compartment. XR hand RT min 3V Ordering provider: Sonia Thurston History: . swollen, pain, bruising . Comparison: None. FINDINGS: BONES: . Osteopenia of the bones. The area of the distal radius shows longitudinal lucency which may indicate a fracture. Proper images are advised. JOINT SPACES: Narrowing of the proximal and distal interphalangeal joints. Chondrocalcinosis in the TFCC area. SOFT TISSUES: Slightly prominent soft tissues in the area of the metacarpal bones. IMPRESSION: Possible fracture in the distal radius. Clinical correlation and proper images are advised. Slight narrowing of the proximal and distal interphalangeal joints. Quality VTE Prophylaxis VTE prophylaxis: pharmacologic ordered
[2024-08-24] MEDS: EMPAGLIFLOZIN 10 MG TABLET BY MOUTH (09:09)
[2024-08-24] MEDS: SULFAMETHOXAZOLE/TRIMETHOPRIM 400/80 MG TABLET 1 TAB PO ×2 (09:09→21:24)
[2024-08-24] MEDS: PANTOPRAZOLE 40 MG TABLET PO (09:09)
[2024-08-24] MEDS: ASPIRIN 81 MG ENTERIC TABLET PO (09:09)
[2024-08-24] MEDS: ESCITALOPRAM OXALATE 10 MG TABLET 20 MG PO (09:09)
[2024-08-24] MEDS: CHOLECALCIFEROL 1,000 UNITS TABLET 2000 UNITS PO (09:10)
[2024-08-24] MEDS: FLUTICASONE PROPIONATE 0.05% NA SPR 16 GM BTL (*BKC) 2 SPRAY NASAL (09:10)
[2024-08-24] MEDS: FUROSEMIDE 80 MG TABLET PO ×2 (09:10→17:02)
[2024-08-24] MEDS: ENOXAPARIN 40 MG/0.4 ML SYRINGE SUB-Q (09:11)
[2024-08-24] MEDS: METOPROLOL SUCCINATE EXT REL 25 MG TABCR PO (09:12)
--- NOTE | 2024-08-24 10:22 | PCNEURO ---
EEG was attempted but patient refused test. Had nurse talk with patient also but still refused.
--- NOTE | 2024-08-24 10:28 | PC.NURSE ---
Patient refusing EEG. Kathi CAMACHO discussed the importance of this test with patient. Patient still continuing refuse to do it.
--- NOTE | 2024-08-24 10:41 | PM.PNNEP ---
Subjective Date/time seen: 08/24/24 10:41 Objective Data Vital Signs Vital Signs: Vital Signs Temp Pulse Resp BP Pulse Ox O2 Del Method O2 Flow Rate 08/24/24 09:19 94 Nasal Cannula 3 08/24/24 09:12 101 H 08/24/24 07:52 102 H 20 08/24/24 07:36 98 20 08/24/24 07:36 94 Nasal Cannula 4 08/24/24 06:00 97.0 F L 99 16 161/81 H 93 08/24/24 04:13 95 20 08/24/24 04:05 94 20 08/23/24 21:25 94 Nasal Cannula 4 08/23/24 21:35 99 20 08/23/24 21:25 96 20 08/23/24 21:44 97.6 F 105 H 16 149/87 H 94 Intake/Output Intake/Output: Intake & Output 08/21/24 08/22/24 08/23/24 08/24/24 23:59 23:59 23:59 23:59 Intake Total 1860 588 2806 1250 Output Total 950 1100 1000 2000 Balance 440 -370 550 -750 Meds/Results Medications: Active Medications Generic Name Dose Route Start Last Admin Trade Name Freq PRN Reason Stop Dose Admin Acetaminophen 650 mg 08/17/24 16:39 08/22/24 20:31 Acetaminophen 325 Mg Tablet PO 650 mg Q4H PRN Administration Mild Pain (1-3) or Fever Hydrocodone Bitart/Acetaminophen 1 tab 08/18/24 14:16 08/18/24 21:39 Hydrocodone/Acetaminophen (*Crx) 5-325 Mg Tablet PO 1 tab Q4H PRN Administration Pain Rated 4-6 Albuterol/Ipratropium 3 ml 08/17/24 20:00 08/24/24 14:16 Ipratropium 0.5 Mg/Albuterol Sulfate 2.5 Mg Ampul.Neb 3 Ml INHALATION 3 ml Q6HRT KAELA Administration Allopurinol 300 mg 08/18/24 09:00 08/22/24 09:58 Allopurinol 300 Mg Tablet PO 300 mg DAILY KAELA Administration Amitriptyline HCl 10 mg 08/17/24 21:00 08/23/24 20:54 Amitriptyline Hcl 10 Mg Tablet PO 10 mg QHS KAELA Administration Aspirin 81 mg 08/18/24 09:00 08/24/24 09:09 Aspirin 81 Mg Enteric Tablet PO 81 mg QAM KAELA Administration Atorvastatin Calcium 10 mg 08/17/24 21:00 08/23/24 20:54 Atorvastatin 10 Mg Tablet PO 10 mg HS KAELA Administration Benzonatate 100 mg 08/17/24 20:42 08/22/24 20:19 Benzonatate 100 Mg Capsule PO 100 mg TID PRN Administration Cough Dextrose 12.5 gm 08/17/24 17:18 Dextrose 50% 25 Gm/50 Ml Syringe IV PUSH PRN PRN Hypoglycemia Protocol Empagliflozin 10 mg 08/24/24 09:00 08/24/24 09:09 Empagliflozin 10 Mg Tablet BY MOUTH 10 mg DAILY KAELA Administration Enoxaparin Sodium 40 mg 08/23/24 09:00 08/24/24 09:11 Enoxaparin 40 Mg/0.4 Ml Syringe SUB-Q 40 mg DAILY KAELA Administration Escitalopram Oxalate 20 mg 08/18/24 09:00 08/24/24 09:09 Escitalopram Oxalate 10 Mg Tablet PO 20 mg DAILY KAELA Administration Fluticasone Propionate 2 spray 08/18/24 09:00 08/24/24 09:10 Fluticasone Propionate 0.05% Na Spr 16 Gm Btl (*Bkc) NASAL 2 spray DAILY KAELA Administration Furosemide 40 mg 08/18/24 09:00 Furosemide Inj 40 Mg/4 Ml Vial IV PUSH BID KAELA Furosemide 80 mg 08/23/24 15:00 08/24/24 17:02 Furosemide 80 Mg Tablet PO 80 mg BID@0800,1400 KAELA Administration Gabapentin 300 mg 08/17/24 21:00 08/21/24 20:30 Gabapentin 300 Mg Capsule PO 300 mg QHS KAELA Administration Glucagon 1 mg 08/17/24 17:18 Glucagon For Inj 1 Mg Vial IM PRN PRN Hypoglycemia Protocol Glucose 15 gm 08/17/24 17:18 Glucose Oral Gel 15 Gm Of Glucse In 37.5 Gm Tube PO PRN PRN Hypoglycemia Protocol Dextrose 1,000 mls @ 100 mls/hr 08/17/24 17:18 Dextrose 5% 1,000 Ml IVPB PRN PRN Hypoglycemia Protocol Insulin Aspart 2 - 4 units 08/17/24 21:00 08/23/24 21:01 Insulin Aspart (*Bkc) 100 Units/Ml SUB-Q 4 units HS KAELA Administration Protocol Insulin Aspart 10 units 08/24/24 17:00 08/24/24 17:03 Insulin Aspart (*Bkc) 100 Units/Ml SUB-Q 10 units TIDWM KAELA Administration Insulin Aspart 2 - 5 units 08/24/24 17:00 08/24/24 17:03 Insulin Aspart (*Bkc) 100 Units/Ml SUB-Q 3 units TIDWM KAELA Administration Protocol Insulin Glargine 30 units 08/24/24 21:00 Insulin Glargine (*Bkc) 100 Units/Ml SUB-Q HS KAELA Levothyroxine Sodium 50 mcg 08/18/24 06:30 08/24/24 05:30 Levothyroxine Sodium 50 Mcg Tablet PO 50 mcg DAILY@0630 KAELA Administration Metoprolol Succinate 25 mg 08/21/24 09:00 08/24/24 09:12 Metoprolol Succinate Ext Rel 25 Mg Tabcr PO 25 mg QAM KAELA Administration Ondansetron HCl 4 mg 08/17/24 17:17 Ondansetron Inj 4 Mg/2 Ml Vial IV PUSH Q6H PRN Nausea And Vomiting Pantoprazole Sodium 40 mg 08/18/24 09:00 08/24/24 09:09 Pantoprazole 40 Mg Tablet PO 40 mg QAM KAELA Administration Sodium Chloride 2 spray 08/17/24 20:42 Saline 0.65% Sha Soln 44 Ml Btl NASAL QID PRN nasal congestion/dryness Trimethoprim/Sulfamethoxazole 1 tab 08/23/24 09:00 08/24/24 09:09 Sulfamethoxazole/Trimethoprim 400/80 Mg Tablet PO 08/26/24 21:01 1 tab Q12HR KAELA Administration Vitamin D 2,000 units 08/18/24 09:00 08/24/24 09:10 Cholecalciferol 1,000 Units Tablet PO 2,000 units DAILY KAELA Administration Radiology Results: ITS Impressions Shoulder X-Ray 08/18/24 15:56 IMPRESSION: Osteopenia Head CT 08/20/24 09:56 IMPRESSION: 1. Stable moderate nonspecific cerebral white matter disease, which likely represents chronic small vessel ischemic disease. Pulmonary Perfusion Imaging 08/20/24 12:15 IMPRESSION: 1. Low probability for pulmonary embolism. Brain MRI 08/22/24 16:06 IMPRESSION: 1. Moderate nonspecific cerebral white matter disease and pontine disease, which likely represents chronic small vessel ischemic disease, stable from 05/26/2022. Chest X-Ray 08/22/24 18:38 IMPRESSION: Moderate interstitial edema. Subsegmental bibasilar atelectasis/consolidation. Possible small bilateral effusions. Hand X-Ray 08/23/24 15:26 IMPRESSION: Possible fracture in the distal radius. Clinical correlation and proper images are advised. Slight narrowing of the proximal and distal interphalangeal joints. Forearm X-Ray 08/24/24 11:01 IMPRESSION: 1. No fracture identified. 2. Loose bodies in the radiocarpal compartment. Modified Barium Swallow 08/24/24 14:17 IMPRESSION: Minimal pharyngeal dysphagia with trace shallow laryngeal penetration without aspiration. Please correlate with speech pathologist findings and specific feeding recommendations. Labs Labs: Laboratory Tests 08/24/24 05:37 08/24/24 05:37 Calcium 11.1 H Total Bilirubin 0.5 AST 18 ALT 12 Alkaline Phosphatase 106 Total Protein 7.0 Albumin 3.6
[2024-08-24 12:48] LABS: Glucose Point of Care 379 mg/dl (65-105)
[2024-08-24] MEDS: INSULIN ASPART (*BKC) 100 UNITS/ML 10 UNITS SUB-Q ×2 (12:52→17:03)
[2024-08-24 17:04] LABS: Calcium/Creatinine Ratio, Ur 26
[2024-08-24 17:06] LABS: Glucose Point of Care 299 mg/dl (65-105)
--- NOTE | 2024-08-24 17:28 | PM.CNOR ---
Assessment and Plan Assessment and plan (1) Radial styloid fracture: Qualifiers: Encounter type: initial encounter Fracture type: closed Fracture alignment: nondisplaced Laterality: right Qualified Code(s): S52.514A - Nondisplaced fracture of right radial styloid process, initial encounter for closed fracture Code(s): S52.513A - Displaced fracture of unspecified radial styloid process, initial encounter for closed fracture Status: Acute Plan Minimally displaced, impacted radial styloid fracture. Possibly subacute. No known injury. The patient is currently confused. I recommend a brace for support. She may remove it intermittently for hygiene and comfort. Gentle range of motion exercises as tolerated. She may continue to use a walker, however if limited by pain, a platform walker may be better option. Anticipate 4-6 weeks of bracing. Follow-up in clinic as needed. History of Present Illness HPI Consult date: 08/24/24 Chief complaint: right wrist pain Narrative: Patient is confused but does complain of right wrist pain. No known injury. Review of Systems Review of Systems: All systems reviewed & are unremarkable except as noted in HPI and below PMFSH Past Medical History Medical History BRADY (acute kidney injury) Anemia Aortic aneurysm Asthma Carpal tunnel syndrome on both sides Cephalgia Change in bowel habits CHF (congestive heart failure), NYHA class I Chronic kidney disease, stage 4 (severe) Chronic respiratory failure with hypoxia, on home oxygen therapy COPD (chronic obstructive pulmonary disease) Decubitus skin ulcer Deep venous thrombosis Diabetic neuropathy Diabetic polyneuropathy Dysphagia Gout Hypercalcemia Hyperkalemia Hyperlipidemia Hyperparathyroidism Hypertension Hyponatremia Hypothyroidism Neuropathy Obstructive sleep apnea on CPAP Osteoarthritis of facet joint of lumbar spine Pulmonary embolism Thoracic aortic aneurysm, without rupture Thyroid nodule Type 2 diabetes mellitus with hyperglycemia Surgical History Surgical History History of appendectomy History of cardiac catheterization History of cholecystectomy History of hysterectomy Hx of cataract removal with insertion of prosthetic lens Family History Family History Mother Diabetes mellitus Family history of bipolar disorder Hypertension Father Family history of cardiovascular disease Cerebrovascular accident Family history of emphysema Other Family history of anemia Family history of congestive heart failure Family history of obesity Social History Social History Social History: Surrogate decision maker: Beverly Flores, daughter. The patient also has a son. She is . 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 She is a lifelong nonsmoker. She does not use any alcohol or illicit drugs. Code status: Full code. Smoking status: Never smoker Second hand tobacco smoke exposure: No Alcohol intake: current Drinks per week: 1 Substance use: never Substance use type: does not use Do You Feel Safe in your Home?: Yes Lack of Transportation: No Lack of Food: Never True Current Housing: I Have Housing Concerned About Future Housing: No Difficulty Paying Gas/Electric Bills: No Difficulty Paying for Meds: No Currently Unemployed: No Education: Decline to Answer Difficulty w/ Childcare or Family Care: No Living arrangements: assisted living Additional living arrangements comments: Assisted living at [facility]. Gender identity (if verbalized by the patient): Female Spiritual care concerns: No Meds Home Medications and Allergies Home Medications Medication Instructions Recorded Confirmed Type magnesium oxide 400 mg PO DAILY 11/15/19 08/17/24 History allopurinol 300 mg tablet 300 mg PO DAILY 03/17/21 08/17/24 History atorvastatin 10 mg tablet 10 mg PO HS 05/27/21 08/17/24 History aspirin 81 mg capsule 81 mg PO DAILY 08/31/21 08/17/24 History fluticasone furoate 100 1 inh inhalation DAILY 12/29/21 08/17/24 History mcg-vilanterol 25 mcg/dose inhalation powder (Breo Ellipta) omega-3 fatty acids 1,000 mg PO DAILY 12/29/21 08/17/24 History escitalopram oxalate 20 mg tablet 20 mg PO DAILY #90 tabs 01/21/22 08/17/24 Rx (Lexapro) cholecalciferol (vitamin D3) 50 50 mcg PO DAILY 05/25/22 08/17/24 History mcg (2,000 unit) tablet guanfacine 2 mg tablet 2 mg PO HS 07/13/22 08/17/24 History pantoprazole 40 mg tablet,delayed 40 mg PO QAM 1 month #30 tabs 11/16/22 08/17/24 Rx release flash glucose sensor (FreeStyle #6 ea 06/29/23 08/17/24 Rx Jeffrey 2 Sensor kit) levothyroxine 50 mcg tablet 50 mcg PO DAILY #90 tabs 06/29/23 08/17/24 Rx cetirizine 10 mg tablet 10 mg PO DAILY PRN allergy 07/04/23 08/17/24 Rx symptoms #90 tabs dapagliflozin propanediol 10 mg 10 mg PO DAILY #90 tabs 01/05/24 08/17/24 Rx tablet (Farxiga) miconazole nitrate 2 % topical 1 applic topical BID #85 grams 01/10/24 08/17/24 Rx powder (Miconazorb AF) fluticasone propionate 50 2 spray intranasal DAILY #16 grams 01/17/24 08/17/24 Rx mcg/actuation nasal spray,suspension pen needle, diabetic 30 gauge x 01/24/24 08/17/24 History 1/3 fexofenadine 180 mg tablet 180 mg PO DAILY 02/08/24 08/17/24 History pen needle, diabetic, safety 30 #100 ea 03/13/24 08/17/24 Rx gauge x 1/3 (Novofine Autocover) amitriptyline 10 mg tablet 10 mg PO QHS 1 month #30 tabs 03/21/24 08/17/24 Rx albuterol sulfate 90 mcg/actuation 2 puff inhalation Q4H PRN 03/28/24 08/17/24 Rx aerosol inhaler (Ventolin HFA) shortness of breath or wheezing #8.5 grams albuterol sulfate 2.5 mg/0.5 mL 2.5 mg (0.5 mL) inhalation Q20M 05/09/24 08/17/24 Rx solution for nebulization PRN shortness of breath or wheezing #30 ea gabapentin 300 mg capsule 300 mg PO QHS #90 caps 05/09/24 08/17/24 Rx acetaminophen 325 mg tablet 650 mg PO BID 08/17/24 08/17/24 History acetaminophen 500 mg tablet 500 mg PO Q6H PRN mild pain or 08/17/24 08/17/24 History fever atogepant 10 mg tablet (Qulipta) 10 mg PO DAILY 08/17/24 08/17/24 History benzonatate 100 mg capsule 100 mg PO TID PRN Cough 08/17/24 08/17/24 History fmpnbgnatg-etzdyiskqdthb-hrfbdhwx 2 cap PO DAILY PRN Pain 08/17/24 08/17/24 History 50 mg-300 mg-40 mg capsule (Fioricet) carvedilol 25 mg tablet 25 mg PO BIDWM 08/17/24 08/17/24 History furosemide 80 mg tablet See Rx Instructions .Route .COMPLEX 08/17/24 08/17/24 History insulin glargine 100 unit/mL (3 45 unit subcut QAM 08/17/24 08/17/24 History mL) subcutaneous pen (Basaglar KwikPen U-100 Insulin) insulin lispro 100 unit/mL 12 unit subcut QACBREAK E11.65 - 08/17/24 08/17/24 History subcutaneous pen (Humalog KwikPen Type 2 diabetes mellitus with (U-100) Insulin) hyperglycem insulin lispro 100 unit/mL See Rx Instructions .Route .COMPLEX 08/17/24 08/17/24 History subcutaneous pen (Humalog KwikPen (U-100) Insulin) insulin lispro 100 unit/mL See Rx Instructions .Route .COMPLEX 08/17/24 08/17/24 History subcutaneous pen (Humalog KwikPen (U-100) Insulin) sodium chloride 0.65 % nasal spray 2 spray intranasal QID PRN nasal 08/17/24 08/17/24 History aerosol (Deep Sea Nasal) congestion/dryness Allergies Allergy/AdvReac Type Severity Reaction Status Date / Time No Known Allergies Allergy Verified 08/17/24 22:00 Vital Signs Vital Signs - 24 hr 08/23/24 21:44 08/23/24 21:25 08/23/24 21:35 Temperature 36.4 C Pulse Rate 105 H 96 99 Respiratory Rate 16 20 20 Blood Pressure 149/87 H Pulse Oximetry 94 Oxygen Delivery Oxygen Flow Rate Fraction of Inspired Oxygen 08/23/24 21:25 08/24/24 04:05 08/24/24 04:13 Temperature Pulse Rate 94 95 Respiratory Rate 20 20 Blood Pressure Pulse Oximetry 94 Oxygen Delivery Nasal Cannula Oxygen Flow Rate 4 Fraction of Inspired Oxygen 08/24/24 06:00 08/24/24 07:36 08/24/24 07:36 Temperature 36.1 C L Pulse Rate 99 98 Respiratory Rate 16 20 Blood Pressure 161/81 H Pulse Oximetry 93 94 Oxygen Delivery Nasal Cannula Oxygen Flow Rate 4 Fraction of Inspired Oxygen 36 08/24/24 07:52 08/24/24 09:12 08/24/24 09:19 Temperature Pulse Rate 102 H 101 H Respiratory Rate 20 Blood Pressure Pulse Oximetry 94 Oxygen Delivery Nasal Cannula Oxygen Flow Rate 3 Fraction of Inspired Oxygen 08/24/24 14:16 08/24/24 14:25 08/24/24 14:00 Temperature 36.3 C L Pulse Rate 105 H 104 H 107 H Respiratory Rate 20 20 16 Blood Pressure 144/83 H Pulse Oximetry 93 Oxygen Delivery Oxygen Flow Rate Fraction of Inspired Oxygen Exam Narrative: Morbidly obese. Pleasantly confused. Exquisite tenderness at the radial styloid of the right wrist. Moderate swelling. Painful range of motion. No deformity. Wiggles fingers. Light touch sensation intact. Elbow benign. Forearm soft. No warmth erythema. Results Labs 08/24/24 05:37 08/24/24 05:37 Labs: Abnormal lab results 08/23/24 08/24/24 08/24/24 Range/Units 19:48 05:37 08:11 RBC 3.88 L (4.2-5.4) M/mm3 Hgb 11.6 L (12.0-15.0) g/dL MCHC 30.9 L (32-36) g/dl RDW 15.9 H (11.5-14.5) % [place] % (Auto) 8.9 H (2.6-8.5) % Eos % (Auto) 5.8 H (0-4.4) % [place] # (Auto) 0.8 H (0.1-0.6) K/mm3 Eos # (Auto) 0.5 H (0-0.3) K/mm3 Sodium 134 L (137-145) mmol/L BUN 47 H (7-17) mg/dL Creatinine 2.30 H (0.7-1.0) mg/dL Estimated GFR 21 L (59 - ) Glucose 355 H (65-110) mg/dL POC Capillary Glucose 360 H 354 H (65-105) mg/dl Calcium 11.1 H (8.4-10.2) mg/dL 08/24/24 08/24/24 Range/Units 12:45 16:56 RBC (4.2-5.4) M/mm3 Hgb (12.0-15.0) g/dL MCHC (32-36) g/dl RDW (11.5-14.5) % [place] % (Auto) (2.6-8.5) % Eos % (Auto) (0-4.4) % [place] # (Auto) (0.1-0.6) K/mm3 Eos # (Auto) (0-0.3) K/mm3 Sodium (137-145) mmol/L BUN (7-17) mg/dL Creatinine (0.7-1.0) mg/dL Estimated GFR (59 - ) Glucose (65-110) mg/dL POC Capillary Glucose 379 H 299 H (65-105) mg/dl Calcium (8.4-10.2) mg/dL H & H 08/17/24 08/18/24 08/19/24 Range/Units 12:46 05:23 05:39 Hgb 11.9 L 11.6 L 13.1 (12.0-15.0) g/dL Hct 40.2 39.3 43.8 (37.0-47.0) % 08/20/24 08/21/24 08/22/24 Range/Units 05:19 06:14 06:24 Hgb 11.9 L 12.1 11.6 L (12.0-15.0) g/dL Hct 40.9 40.6 38.9 (37.0-47.0) % 08/23/24 08/24/24 Range/Units 06:20 05:37 Hgb 11.9 L 11.6 L (12.0-15.0) g/dL Hct 38.6 37.6 (37.0-47.0) % Coagulation 08/20/24 Range/Units 10: INR 1.0 All other labs normal.
[2024-08-24] MEDS: ATORVASTATIN 10 MG TABLET PO (21:24)
[2024-08-24] MEDS: AMITRIPTYLINE HCL 10 MG TABLET PO (21:24)
[2024-08-24] MEDS: INSULIN GLARGINE (*BKC) 100 UNITS/ML 30 UNITS SUB-Q (21:25)
[2024-08-24 22:14] LABS: Glucose Point of Care 280 mg/dl (65-105)
[2024-08-25] VITALS (15 sets, daily range): BP systolic 140–145; BP diastolic 74–84; PULSE 107–115; RESP 16–20; TEMP 36.4–37.1; O2SAT 92–99; BMI 10.0
[2024-08-25] MEDS: IPRATROPIUM 0.5 MG/ALBUTEROL SULFATE 2.5 MG AMPUL.NEB 3 ML INHALATION ×4 (02:50→21:32)
[2024-08-25 05:59] LABS: Basophils Absolute Auto 0.1 K/mm3 (0.0-0.1); Basophils Percent Auto 0.6 % (0.2-1.2); Eosinophils Absolute Auto 0.6 K/mm3 (0-0.3); Eosinophils Percent Auto 6.2 % (0-4.4); Hematocrit 39.5 % (37.0-47.0); Immature Granulocyte Absolute 0.03 K/mm3 (0.00-0.031); Immature Granulocyte Percent A 0.3 % (0-0.5); Lymphocytes Absolute Auto 2.48 K/mm3 (0.9-3.2); Mean Corpuscular HGB Conc 30.4 g/dl (32-36); Mean Corpuscular Hemoglobin 29.1 pg (26-34); Mean Corpuscular Volume 95.9 fl (80-100); Mean Platelet Volume 9.8 fl (7.4-10.4); Monocytes Percent Auto 9.9 % (2.6-8.5); Neutrophils Absolute Auto 5.4 K/mm3 (1.3-6.7); Platelet Count Result 273 k/mm3 (150-375); Red Blood Count 4.12 M/mm3 (4.2-5.4); Red Cell Distribution Width 15.9 % (11.5-14.5); White Blood Count 9.6 K/mm3 (4.5-10.0)
[2024-08-25 06:09] LABS: Alanine Aminotransferase 14 U/L (6-35); Albumin Level 3.7 g/dL (3.5-5.1); Alkaline Phosphatase 117 U/L (38-126); Anion Gap 10 mmol/L (4-12); Aspartate Amino Transferase 20 U/L (14-36); Bilirubin,Total 0.6 mg/dL (0.2-1.3); Blood Urea Nitrogen 50 mg/dL (7-17); Calcium 11.6 mg/dL (8.4-10.2); Carbon Dioxide 27 mmol/L (22-30); Chloride 98 mmol/L (98-107); Estimated CRCL calculation 25 ml/min; Estimated Glomerular Filt Rate 18; Glucose 243 mg/dL (65-110); Sodium 135 mmol/L (137-145)
[2024-08-25] MEDS: LEVOTHYROXINE SODIUM 50 MCG TABLET PO (06:09)
[2024-08-25 08:47] LABS: Glucose Point of Care 282 mg/dl (65-105)
[2024-08-25] MEDS: FUROSEMIDE 80 MG TABLET PO ×2 (09:03→14:43)
[2024-08-25] MEDS: EMPAGLIFLOZIN 10 MG TABLET BY MOUTH (09:03)
[2024-08-25] MEDS: ASPIRIN 81 MG ENTERIC TABLET PO (09:03)
[2024-08-25] MEDS: CHOLECALCIFEROL 1,000 UNITS TABLET 2000 UNITS PO (09:03)
[2024-08-25] MEDS: ENOXAPARIN 40 MG/0.4 ML SYRINGE SUB-Q (09:03)
[2024-08-25] MEDS: ESCITALOPRAM OXALATE 10 MG TABLET 20 MG PO (09:04)
[2024-08-25] MEDS: PANTOPRAZOLE 40 MG TABLET PO (09:04)
[2024-08-25] MEDS: SULFAMETHOXAZOLE/TRIMETHOPRIM 400/80 MG TABLET 1 TAB PO ×2 (09:04→21:09)
[2024-08-25] MEDS: FLUTICASONE PROPIONATE 0.05% NA SPR 16 GM BTL (*BKC) 2 SPRAY NASAL (09:04)
--- NOTE | 2024-08-25 09:04 | P.PNIM_ITS ---
Progress Note: A&P Assessment and Plan (1) Confusion: Code(s): R41.0 - Disorientation, unspecified Status: Acute Assessment and Plan: patient with increasing altered mental status since admission, patient slow to responding, able follow simple commands, staring into space spoke with Dr. Mack over the phone with recommendations for MMA, TSH, T3, T4, B12 and folate, follow-up outpatient to 3 weeks for Alzheimer's workup EEG pending infectious workup completed and negative ABG within normal limits MRI shows Moderate nonspecific cerebral white matter disease and pontine disease, which likely represents chronic small vessel ischemic disease, stable from 05/26/2022. gabapentin, allopurinol and narcotic medications held eeg pending sleep hygiene reduced stimuli confusion appears to be a mix possible dementia hospital-acquired hypoactive delirium and may be psychiatric issues (2) UTI (urinary tract infection): Qualifiers: Hematuria presence: without hematuria Urinary tract infection type: site unspecified Qualified Code(s): N39.0 - Urinary tract infection, site not specified Code(s): N39.0 - Urinary tract infection, site not specified Status: Acute Assessment and Plan: * UA revealed cloudy urine appearance, 2+ urine glucose, positive nitrate, 2+ leukocyte, 51-100 urine WBC, 4+ urine bacteria. * Urine and blood culture was obtained and pending * patient was started on Rocephin * urine culture from 06/23/2023 revealed E coli which was essentially pansensitive except for Bactrim * switched to cefepipme IV to Septra * leukocytosis resolved (3) Acute respiratory failure with hypoxia: Code(s): J96.01 - Acute respiratory failure with hypoxia Status: Acute Assessment and Plan: * patient is not on any baseline oxygen during the day however is requiring 2-4 L nasal cannula now due to hypoxia in the ER with oxygen saturation of 87% on room air. 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 However she does not take any chronic anticoagulation * will also check troponin * EKG showing sinus rhythm with a rate of 66, QTC 423 08/18- V/Q scan ordered unable to do V/Q scan over the weekend. Cr is still high, cr cl too low/gfr low- risk for worsening of kidney functions- discussed with pt. -WELL's criteria for PE- 1.5%- low suspicion for PE- so will observe for now and hold off on scans 08/19- stable- no worsening symptoms-continue regimen and monitor Discussed with Dr Bergman- ok to do VQ scan-will proceed then to r/o PE 08/20- hr slightly elevated, rr elevated- wbc slightly increased. Switch antibiotics to cefepime- head CT, lactic acid, ABG. QTC 423 VQ scan - done- Low probability for pulmonary embolism. - switched to cefepime IV 08/23 cefepime switched to Septra (4) CHF (congestive heart failure), NYHA class I: Qualifiers: Congestive heart failure type: unspecified Qualified Code(s): I50.9 - Heart failure, unspecified Code(s): I50.9 - Heart failure, unspecified Status: Acute Assessment and Plan: * echocardiogram from 12/30/2021 showed normal LV systolic function with an estimated EF of 65-70%, grade 1 diastolic dysfunction. * Chest x-ray reporting airspace opacities in the lower lung zones likely atelectasis. After reviewing the chest x-ray myself and comparing it to a previous chest x-ray patient does appear to have pulmonary edema * proBNP ordered * a one time dose of 40 mg of IV Lasix ordered-- Will hold off on further diuresis considering renal function * consider nephrology consult if requiring further diuresis * echocardiogram EF 65-70% restart home Lasix +1 pedal edema (5) Type 2 diabetes mellitus: Qualifiers: Chronic kidney disease stage: stage 3 (moderate) Chronic kidney disease stage 3 subtype: stage 3b (GFR 30-44) Diabetes mellitus complication detail: with chronic kidney disease Diabetes mellitus complication status: with kidney complications Diabetes mellitus terminal worker insulin use: with skilled nursing use Qualified Code(s): E11.22 - Type 2 diabetes mellitus with diabetic chronic kidney disease; N18.32 - Chronic kidney disease, stage 3b; Z79.4 - skilled nursing (current) use of insulin Code(s): E11.9 - Type 2 diabetes mellitus without complications Status: Chronic Assessment and Plan: * Blood sugars ranging 201-260 * Hgb A1C 8.4 on 05/26/2022 * repeat hemoglobin A1c ordered * Accu checks AC/HS * high-dose SSI ordered * hypoglycemic protocol in place * Diabetic diet ordered * hold Farxiga and mealtime replacement insulin * hold Lantus for now considering reported blood sugar a 53, will reassess in the morning 08/19- BS had been high today- 380's * -order regular insulin x 1 and recheck * - continue high dose SS and hypoglycemia [protocol * -will add Lantus 10 units and monitor as had been stable * -if continues to be elevated- will add base meal insulin 08/20 increased Lantus 08/22 Lantus increased and increase and mealtime insulin 08/23 Lantus increased and increase and mealtime insulin 08/24 Lantus increased and increase and mealtime insulin (6) Chronic kidney disease, stage IV (severe): Code(s): N18.4 - Chronic kidney disease, stage 4 (severe) Status: Chronic Assessment and Plan: * creatinine 2.9, EGFR 16 * baseline creatinine 2.10-2.60, baseline EGFR 18-23 * continue to trend * avoid nephrotoxic medications or testing with IV contrast * - nephrology consulted- PTH level urine calcium to creatinine ratio. (7) Hypertension: Code(s): I10 - Essential (primary) hypertension Status: Chronic Assessment and Plan: * blood pressure ranging 114/72-136/72 * continue carvedilol (8) Obstructive sleep apnea on CPAP: Code(s): G47.33 - Obstructive sleep apnea (adult) (pediatric); Z99.89 - Dependence on other enabling machines and devices Status: Chronic Assessment and Plan: * patient does not wear CPAP only wears 2L of oxygen at night only (9) Hyperlipidemia: Qualifiers: Hyperlipidemia type: other hyperlipidemia Qualified Code(s): E78.49 - Other hyperlipidemia Code(s): E78.5 - Hyperlipidemia, unspecified Status: Chronic Assessment and Plan: * continue atorvastatin and aspirin (10) Hypothyroidism: Qualifiers: Hypothyroidism type: acquired Qualified Code(s): E03.9 - Hypothyroidism, unspecified Code(s): E03.9 - Hypothyroidism, unspecified Status: Chronic Assessment and Plan: * continue Synthroid * TSH 1.9 (11) Elevated d-dimer: Code(s): R79.89 - Other specified abnormal findings of blood chemistry Status: Acute Assessment and Plan: * D-dimer 0.79 * Will get V/Q scan to rule out PE considering her history of DVT and PE in the past and is not currently on any anticoagulation * see Acute resp failure plan * VQ scan shows Low probability for pulmonary embolism. (12) Radial styloid fracture: Qualifiers: Encounter type: initial encounter Fracture alignment: nondisplaced Fracture type: closed Laterality: right Qualified Code(s): S52.514A - Nondisplaced fracture of right radial styloid process, initial encounter for closed fracture Code(s): S52.513A - Displaced fracture of unspecified radial styloid process, initial encounter for closed fracture Status: Acute Assessment and Plan: Right Possibly subacute. orthopedics consulted brace for support okay for range of motion platform walker weight-bearing through elbow brace for 4-6 weeks and follow-up outpatient clinic Time Spent With Patient Time: Includes review of chart, time spent family, consulting teams and nursing. Vital signs were reviewed and they are stable. His medications will be reviewed and resumed as appropriate. Findings and treatment plan were discussed with the patient. Questions were solicited and answered to satisfaction. Care plan was discussed with nursing. over 55 minutes Subjective Date/time seen: 08/25/24 09:04 Interval history: 74-year-old female with a significant past medical history of who presented to the ER with generalized weakness , hypoglycemia, pneumonia and UTI. patient's blood sugar had 100, Lantus and NovoLog increased patient getting close to home dose. right hand x-ray shows possible right radial fracture, orthopedics consulted, EEG pending called by nursing due to patient coughing while eating speech consulted for swallow eval, patient coughing during swallow evaluation will order modified barium speech recommending level 6 patient accepted to Rehab TSH, B12 and folate within normal limits patient refused EEG yesterday, eeg reordered Review of Systems Review of Systems: All systems reviewed & are unremarkable except as noted in HPI and below Constitutional: Constitutional: Reports as per HPI and Reports no additional constitutional complaints Eyes: Eyes: Reports as per HPI and Reports no additional eye complaints ENT: Reports system reviewed and no additional complaints, except as documented and Reports as per HPI Cardiovascular: Cardiovascular: Reports as per HPI and Reports no additional cardiovascular complaints Respiratory: Respiratory: Reports as per HPI and Reports no additional respiratory complaints Gastrointestinal: Gastrointestinal: Reports as per HPI and Reports no additional gastrointestinal complaints Genitourinary: Genitourinary: Reports no additional female genitourinary complaints and Reports as per HPI Musculoskeletal: Musculoskeletal: Reports no additional musculoskeletal complaints and Reports as per HPI Integumentary/Breasts: Skin/Breast: Reports system reviewed and no additional complaints, except as docu and Reports as per HPI Neurologic: Reports system reviewed and no additional complaints, except as documented and Reports as per HPI Psychiatric: Psychiatric: Reports no additional psychiatric complaints and Reports as per HPI Exam Narrative: General: Week appearance, well nourished, pleasant Head: atraumatic, no encephalopathy Eyes: PERRLA, sclera clear ENT: moist mucous membranes, nasal passages clear Neck: supple, no JVD, no adenopathy, trachea midline Cardiac: Normal S1 and S2. No murmur, gallops or friction rubs, peripheral pulses intact. Respiratory: Lungs clear in the upper lobes, diminished in the bases, currently on room air, no adventitious lung sounds noted Gastrointestinal: soft, non-distended, non-tender, normoactive bowel sounds. : voiding without difficulty via purewick, clear and yellow. Reports dysuria and urinary frequency Extremities: moves all extremities fair, 1 to 2+ pitting edema to bilateral lower extremity Skin: clean, dry, intact. No wounds or lesions. Neuro: Alert and oriented x 2, cranial nerves intact, no neuro deficits. Slow response Psych: laughs when asked questions Objective Data Vital Signs Vital Signs: Vital Signs - 24 hr 08/24/24 09:12 08/24/24 09:19 08/24/24 14:16 Temperature Pulse Rate 101 H 105 H Respiratory Rate 20 Blood Pressure Pulse Oximetry 94 Oxygen Delivery Nasal Cannula Oxygen Flow Rate 3 08/24/24 14:25 08/24/24 14:00 08/24/24 20:57 Temperature 97.3 F L Pulse Rate 104 H 107 H 116 H Respiratory Rate 20 16 20 Blood Pressure 144/83 H Pulse Oximetry 93 Oxygen Delivery Oxygen Flow Rate 08/24/24 20:58 08/24/24 22:00 08/24/24 20:00 Temperature 97.5 F L Pulse Rate 114 H Respiratory Rate 20 Blood Pressure 140/85 Pulse Oximetry 91 99 95 Oxygen Delivery Nasal Cannula Nasal Cannula Oxygen Flow Rate 3 3 08/25/24 02:52 08/24/24 21:07 08/25/24 06:00 Temperature 98.8 F Pulse Rate 111 H 118 H 111 H Respiratory Rate 20 20 18 Blood Pressure 140/84 Pulse Oximetry 97 Oxygen Delivery Oxygen Flow Rate 08/25/24 07:47 08/25/24 07:49 08/25/24 07:55 Temperature Pulse Rate 113 H 115 H Respiratory Rate 20 20 Blood Pressure Pulse Oximetry 93 Oxygen Delivery Nasal Cannula Oxygen Flow Rate 3 Intake/Output Intake/Output: Intake & Output 08/22/24 08/23/24 08/24/24 08/25/24 23:59 23:59 23:59 23:59 Intake Total 730 1550 1370 500 Output Total 1100 1000 2000 900 Balance -370 550 -630 -400 Meds/Results Medications: Active Medications Generic Name Dose Route Start Last Admin Trade Name Freq PRN Reason Stop Dose Admin Acetaminophen 650 mg 08/17/24 16:39 08/22/24 20:31 Acetaminophen 325 Mg Tablet PO 650 mg Q4H PRN Administration Mild Pain (1-3) or Fever Hydrocodone Bitart/Acetaminophen 1 tab 08/18/24 14:16 08/18/24 21:39 Hydrocodone/Acetaminophen (*Crx) 5-325 Mg Tablet PO 1 tab Q4H PRN Administration Pain Rated 4-6 Albuterol/Ipratropium 3 ml 08/17/24 20:00 08/25/24 07:47 Ipratropium 0.5 Mg/Albuterol Sulfate 2.5 Mg Ampul.Neb 3 Ml INHALATION 3 ml Q6HRT KAELA Administration Allopurinol 300 mg 08/18/24 09:00 08/22/24 09:58 Allopurinol 300 Mg Tablet PO 300 mg DAILY KAELA Administration Amitriptyline HCl 10 mg 08/17/24 21:00 08/24/24 21:24 Amitriptyline Hcl 10 Mg Tablet PO 10 mg QHS KAELA Administration Aspirin 81 mg 08/18/24 09:00 08/24/24 09:09 Aspirin 81 Mg Enteric Tablet PO 81 mg QAM KAELA Administration Atorvastatin Calcium 10 mg 08/17/24 21:00 08/24/24 21:24 Atorvastatin 10 Mg Tablet PO 10 mg HS KAELA Administration Benzonatate 100 mg 08/17/24 20:42 08/22/24 20:19 Benzonatate 100 Mg Capsule PO 100 mg TID PRN Administration Cough Dextrose 12.5 gm 08/17/24 17:18 Dextrose 50% 25 Gm/50 Ml Syringe IV PUSH PRN PRN Hypoglycemia Protocol Empagliflozin 10 mg 08/24/24 09:00 08/24/24 09:09 Empagliflozin 10 Mg Tablet BY MOUTH 10 mg DAILY KAELA Administration Enoxaparin Sodium 40 mg 08/23/24 09:00 08/24/24 09:11 Enoxaparin 40 Mg/0.4 Ml Syringe SUB-Q 40 mg DAILY KAELA Administration Escitalopram Oxalate 20 mg 08/18/24 09:00 08/24/24 09:09 Escitalopram Oxalate 10 Mg Tablet PO 20 mg DAILY KAELA Administration Fluticasone Propionate 2 spray 08/18/24 09:00 08/24/24 09:10 Fluticasone Propionate 0.05% Na Spr 16 Gm Btl (*Bkc) NASAL 2 spray DAILY KAELA Administration Furosemide 40 mg 08/18/24 09:00 Furosemide Inj 40 Mg/4 Ml Vial IV PUSH BID KAELA Furosemide 80 mg 08/23/24 15:00 08/24/24 17:02 Furosemide 80 Mg Tablet PO 80 mg BID@0800,1400 KAELA Administration Gabapentin 300 mg 08/17/24 21:00 08/21/24 20:30 Gabapentin 300 Mg Capsule PO 300 mg QHS KAELA Administration Glucagon 1 mg 08/17/24 17:18 Glucagon For Inj 1 Mg Vial IM PRN PRN Hypoglycemia Protocol Glucose 15 gm 08/17/24 17:18 Glucose Oral Gel 15 Gm Of Glucse In 37.5 Gm Tube PO PRN PRN Hypoglycemia Protocol Dextrose 1,000 mls @ 100 mls/hr 08/17/24 17:18 Dextrose 5% 1,000 Ml IVPB PRN PRN Hypoglycemia Protocol Insulin Aspart 2 - 4 units 08/17/24 21:00 08/24/24 21:29 Insulin Aspart (*Bkc) 100 Units/Ml SUB-Q 2 units HS KAELA Administration Protocol Insulin Aspart 10 units 08/24/24 17:00 08/24/24 17:03 Insulin Aspart (*Bkc) 100 Units/Ml SUB-Q 10 units TIDWM KAELA Administration Insulin Aspart 2 - 5 units 08/24/24 17:00 08/24/24 17:03 Insulin Aspart (*Bkc) 100 Units/Ml SUB-Q 3 units TIDWM KAELA Administration Protocol Insulin Glargine 30 units 08/24/24 21:00 08/24/24 21:25 Insulin Glargine (*Bkc) 100 Units/Ml SUB-Q 30 units HS KAELA Administration Levothyroxine Sodium 50 mcg 08/18/24 06:30 08/25/24 06:09 Levothyroxine Sodium 50 Mcg Tablet PO 50 mcg DAILY@0630 KAELA Administration Metoprolol Succinate 25 mg 08/21/24 09:00 08/24/24 09:12 Metoprolol Succinate Ext Rel 25 Mg Tabcr PO 25 mg QAM KAELA Administration Ondansetron HCl 4 mg 08/17/24 17:17 Ondansetron Inj 4 Mg/2 Ml Vial IV PUSH Q6H PRN Nausea And Vomiting Pantoprazole Sodium 40 mg 08/18/24 09:00 08/24/24 09:09 Pantoprazole 40 Mg Tablet PO 40 mg QAM KAELA Administration Sodium Chloride 2 spray 08/17/24 20:42 Saline 0.65% Sha Soln 44 Ml Btl NASAL QID PRN nasal congestion/dryness Trimethoprim/Sulfamethoxazole 1 tab 08/23/24 09:00 08/24/24 21:24 Sulfamethoxazole/Trimethoprim 400/80 Mg Tablet PO 08/26/24 21:01 1 tab Q12HR KAELA Administration Vitamin D 2,000 units 08/18/24 09:00 08/24/24 09:10 Cholecalciferol 1,000 Units Tablet PO 2,000 units DAILY KAELA Administration Radiology Results: ITS Impressions Shoulder X-Ray 08/18/24 15:56 IMPRESSION: Osteopenia Head CT 08/20/24 09:56 IMPRESSION: 1. Stable moderate nonspecific cerebral white matter disease, which likely repr esents chronic small vessel ischemic disease. Pulmonary Perfusion Imaging 08/20/24 12:15 IMPRESSION: 1. Low probability for pulmonary embolism. Brain MRI 08/22/24 16:06 IMPRESSION: 1. Moderate nonspecific cerebral white matter disease and pontine disease, which likely represents chronic small vessel ischemic disease, stable from 05/26/2022. Chest X-Ray 08/22/24 18:38 IMPRESSION: Moderate interstitial edema. Subsegmental bibasilar atelectasis/consolidation. Possible small bilateral effusions. Hand X-Ray 08/23/24 15:26 IMPRESSION: Possible fracture in the distal radius. Clinical correlation and proper images are advised. Slight narrowing of the proximal and distal interphalangeal joints. Forearm X-Ray 08/24/24 11:01 IMPRESSION: 1. No fracture identified. 2. Loose bodies in the radiocarpal compartment. Modified Barium Swallow 08/24/24 14:17 IMPRESSION: Minimal pharyngeal dysphagia with trace shallow laryngeal penetra tion without aspiration. Please correlate with speech pathologist findings and specific feeding recommendations. Labs Labs: Laboratory Results - last 24 hr 08/19/24 08/24/24 08/24/24 10:18 12:45 16:56 WBC RBC Hgb Hct MCV MCH MCHC RDW Plt Count MPV Immature Gran % (Auto) Neut % (Auto) Lymph % (Auto) Casey % (Auto) Eos % (Auto) Baso % (Auto) Lymph # (Auto) Casey # (Auto) Eos # (Auto) Baso # (Auto) Abs Immat Gran (auto) Absolute Neuts (auto) Absolute Nucleated RBC Nucleated RBC % Sodium Potassium Chloride Carbon Dioxide Anion Gap BUN Creatinine Estim Creat Clear Calc Estimated GFR Glucose POC Capillary Glucose 379 H 299 H Calcium Total Bilirubin AST ALT Alkaline Phosphatase Total Protein Albumin Calcium/Creat Ratio 26 08/24/24 08/25/24 08/25/24 21:19 05:44 08:32 WBC 9.6 RBC 4.12 L Hgb 12.0 Hct 39.5 MCV 95.9 MCH 29.1 MCHC 30.4 L RDW 15.9 H Plt Count 273 MPV 9.8 Immature Gran % (Auto) 0.3 Neut % (Auto) 57.0 Lymph % (Auto) 26.0 Casey % (Auto) 9.9 H Eos % (Auto) 6.2 H Baso % (Auto) 0.6 Lymph # (Auto) 2.48 Casey # (Auto) 1.0 H Eos # (Auto) 0.6 H Baso # (Auto) 0.1 Abs Immat Gran (auto) 0.03 Absolute Neuts (auto) 5.4 Absolute Nucleated RBC 0.000 Nucleated RBC % 0.0 Sodium 135 L Potassium 4.0 Chloride 98 Carbon Dioxide 27 Anion Gap 10 BUN 50 H Creatinine 2.60 H Estim Creat Clear Calc 25 Estimated GFR 18 L Glucose 243 H POC Capillary Glucose 280 H 282 H Calcium 11.6 H Total Bilirubin 0.6 AST 20 ALT 14 Alkaline Phosphatase 117 Total Protein 7.0 Albumin 3.7 Calcium/Creat Ratio Quality VTE Prophylaxis VTE prophylaxis: pharmacologic ordered
[2024-08-25] MEDS: METOPROLOL SUCCINATE EXT REL 25 MG TABCR PO (09:05)
[2024-08-25] MEDS: INSULIN ASPART (*BKC) 100 UNITS/ML 10 UNITS SUB-Q (09:07)
[2024-08-25] MEDS: INSULIN ASPART (*BKC) 100 UNITS/ML SUB-Q ×4 (09:07→21:12)
--- NOTE | 2024-08-25 10:16 | P.PNNP_ITS ---
Subjective Date/time seen: 08/25/24 10:16 Interval history: Follow-up for chronic kidney disease. Objective Data Vital Signs Vital Signs: Vital Signs Temp Pulse Resp BP Pulse Ox O2 Del Method O2 Flow Rate 08/25/24 09:05 96 Nasal Cannula 3 08/25/24 09:05 113 H 08/25/24 07:55 115 H 20 08/25/24 07:49 93 Nasal Cannula 3 08/25/24 07:47 113 H 20 08/25/24 06:00 98.8 F 111 H 18 140/84 97 08/24/24 21:07 118 H 20 08/25/24 02:52 111 H 20 08/24/24 20:00 95 Nasal Cannula 3 08/24/24 22:00 97.5 F L 114 H 20 140/85 99 08/24/24 20:58 91 Nasal Cannula 3 08/24/24 20:57 116 H 20 Intake/Output Intake/Output: Intake & Output 08/22/24 08/23/24 08/24/24 08/25/24 23:59 23:59 23:59 23:59 Intake Total 730 1550 1370 1340 Output Total 1100 1000 1999 900 Balance -370 550 -630 440 Meds/Results Medications: Active Medications Generic Name Dose Route Start Last Admin Trade Name Freq PRN Reason Stop Dose Admin Acetaminophen 650 mg 08/17/24 16:39 08/25/24 12:44 Acetaminophen 325 Mg Tablet PO 650 mg Q4H PRN Administration Mild Pain (1-3) or Fever Hydrocodone Bitart/Acetaminophen 1 tab 08/18/24 14:16 08/18/24 21:39 Hydrocodone/Acetaminophen (*Crx) 5-325 Mg Tablet PO 1 tab Q4H PRN Administration Pain Rated 4-6 Albuterol/Ipratropium 3 ml 08/17/24 20:00 08/25/24 13:21 Ipratropium 0.5 Mg/Albuterol Sulfate 2.5 Mg Ampul.Neb 3 Ml INHALATION 3 ml Q6HRT KAELA Administration Allopurinol 300 mg 08/18/24 09:00 08/22/24 09:58 Allopurinol 300 Mg Tablet PO 300 mg DAILY KAELA Administration Amitriptyline HCl 10 mg 08/17/24 21:00 08/24/24 21:24 Amitriptyline Hcl 10 Mg Tablet PO 10 mg QHS KAELA Administration Aspirin 81 mg 08/18/24 09:00 08/25/24 09:03 Aspirin 81 Mg Enteric Tablet PO 81 mg QAM KAELA Administration Atorvastatin Calcium 10 mg 08/17/24 21:00 08/24/24 21:24 Atorvastatin 10 Mg Tablet PO 10 mg HS KAELA Administration Benzonatate 100 mg 08/17/24 20:42 08/22/24 20:19 Benzonatate 100 Mg Capsule PO 100 mg TID PRN Administration Cough Dextrose 12.5 gm 08/17/24 17:18 Dextrose 50% 25 Gm/50 Ml Syringe IV PUSH PRN PRN Hypoglycemia Protocol Empagliflozin 10 mg 08/24/24 09:00 08/25/24 09:03 Empagliflozin 10 Mg Tablet BY MOUTH 10 mg DAILY KAELA Administration Enoxaparin Sodium 40 mg 08/23/24 09:00 08/25/24 09:03 Enoxaparin 40 Mg/0.4 Ml Syringe SUB-Q 40 mg DAILY KAELA Administration Escitalopram Oxalate 20 mg 08/18/24 09:00 08/25/24 09:04 Escitalopram Oxalate 10 Mg Tablet PO 20 mg DAILY KAELA Administration Fluticasone Propionate 2 spray 08/18/24 09:00 08/25/24 09:04 Fluticasone Propionate 0.05% Na Spr 16 Gm Btl (*Bkc) NASAL 2 spray DAILY KAELA Administration Furosemide 40 mg 08/18/24 09:00 Furosemide Inj 40 Mg/4 Ml Vial IV PUSH BID KAELA Furosemide 80 mg 08/23/24 15:00 08/25/24 14:43 Furosemide 80 Mg Tablet PO 80 mg BID@0800,1400 KAELA Administration Gabapentin 300 mg 08/17/24 21:00 08/21/24 20:30 Gabapentin 300 Mg Capsule PO 300 mg QHS KAELA Administration Glucagon 1 mg 08/17/24 17:18 Glucagon For Inj 1 Mg Vial IM PRN PRN Hypoglycemia Protocol Glucose 15 gm 08/17/24 17:18 Glucose Oral Gel 15 Gm Of Glucse In 37.5 Gm Tube PO PRN PRN Hypoglycemia Protocol Dextrose 1,000 mls @ 100 mls/hr 08/17/24 17:18 Dextrose 5% 1,000 Ml IVPB PRN PRN Hypoglycemia Protocol Insulin Aspart 2 - 4 units 08/17/24 21:00 08/24/24 21:29 Insulin Aspart (*Bkc) 100 Units/Ml SUB-Q 2 units HS KAELA Administration Protocol Insulin Aspart 2 - 5 units 08/24/24 17:00 08/25/24 12:43 Insulin Aspart (*Bkc) 100 Units/Ml SUB-Q 4 units TIDWM KALEA Administration Protocol Insulin Aspart 12 units 08/25/24 12:00 08/25/24 12:44 Insulin Aspart (*Bkc) 100 Units/Ml SUB-Q 12 units TIDWM KAELA Administration Insulin Glargine 35 units 08/25/24 21:00 Insulin Glargine (*Bkc) 100 Units/Ml SUB-Q HS KAELA Levothyroxine Sodium 50 mcg 08/18/24 06:30 08/25/24 06:09 Levothyroxine Sodium 50 Mcg Tablet PO 50 mcg DAILY@0630 KAELA Administration Metoprolol Succinate 25 mg 08/21/24 09:00 08/25/24 09:05 Metoprolol Succinate Ext Rel 25 Mg Tabcr PO 25 mg QAM KAELA Administration Ondansetron HCl 4 mg 08/17/24 17:17 Ondansetron Inj 4 Mg/2 Ml Vial IV PUSH Q6H PRN Nausea And Vomiting Pantoprazole Sodium 40 mg 08/18/24 09:00 08/25/24 09:04 Pantoprazole 40 Mg Tablet PO 40 mg QAM KAELA Administration Sodium Chloride 2 spray 08/17/24 20:42 Saline 0.65% Sha Soln 44 Ml Btl NASAL QID PRN nasal congestion/dryness Trimethoprim/Sulfamethoxazole 1 tab 08/23/24 09:00 08/25/24 09:04 Sulfamethoxazole/Trimethoprim 400/80 Mg Tablet PO 08/26/24 21:01 1 tab Q12HR KAELA Administration Vitamin D 2,000 units 08/18/24 09:00 08/25/24 09:03 Cholecalciferol 1,000 Units Tablet PO 2,000 units DAILY KAELA Administration Radiology Results: ITS Impressions Shoulder X-Ray 08/18/24 15:56 IMPRESSION: Osteopenia Head CT 08/20/24 09:56 IMPRESSION: 1. Stable moderate nonspecific cerebral white matter disease, which likely represents chronic small vessel ischemic disease. Pulmonary Perfusion Imaging 08/20/24 12:15 IMPRESSION: 1. Low probability for pulmonary embolism. Brain MRI 08/22/24 16:06 IMPRESSION: 1. Moderate nonspecific cerebral white matter disease and pontine disease, which likely represents chronic small vessel ischemic disease, stable from 05/26/2022. Chest X-Ray 08/22/24 18:38 IMPRESSION: Moderate interstitial edema. Subsegmental bibasilar atelectasis/consolidation. Possible small bilateral effusions. Hand X-Ray 08/23/24 15:26 IMPRESSION: Possible fracture in the distal radius. Clinical correlation and proper images a re advised. Slight narrowing of the proximal and distal interphalangeal joints. Forearm X-Ray 08/24/24 11:01 IMPRESSION: 1. No fracture identified. 2. Loose bodies in the radiocarpal compartment. Modified Barium Swallow 08/24/24 14:17 IMPRESSION: Minimal pharyngeal dysphagia with trace shallow laryngeal penetration without aspiration. Please correlate with speech pathologist findings and specific feeding recommendations. Labs Labs: Laboratory Tests 08/25/24 05:44 08/25/24 05:44 Calcium 11.6 H Total Bilirubin 0.6 AST 20 ALT 14 Alkaline Phosphatase 117 Total Protein 7.0 Albumin 3.7
[2024-08-25 12:27] LABS: Glucose Point of Care 335 mg/dl (65-105)
[2024-08-25] MEDS: ACETAMINOPHEN 325 MG TABLET 650 MG PO (12:44)
[2024-08-25] MEDS: INSULIN ASPART (*BKC) 100 UNITS/ML 12 UNITS SUB-Q ×2 (12:44→17:52)
[2024-08-25 13:04] LABS: T3 Free 2.4 pg/mL (2.3-4.2)
--- NOTE | 2024-08-25 14:40 | ECG_ITS ---
Test Date: 2024-08-26 07:46:40 Measurements Intervals [place] Rate: 101 P: 41 CT: 192 QRS: -40 QRSD: 92 T: 67 QT: 353 QTc: 458 Interpretive Statements SINUS TACHYCARDIA LEFT AXIS DEVIATION PATTERN CONSISTENT WITH PULMONARY DISEASE MODERATE ST-T WAVE ABNORMALITY, CONSIDER ANTERIOR ISCHEMIA BASELINE ARTIFACT- I, AVR, AVL, V6 ABNORMAL ECG Compared to ECG 08/17/2024 12:27:38 HEART RATE HAS INCREASED ST-T WAVE ABNORMALITY NOW PRESENT Electronically Signed On 08-26-2024 09:27:49 [employer]ER MACHINE OPERATOR by Lucian España D.O.
[2024-08-25 17:43] LABS: Glucose Point of Care 380 mg/dl (65-105)
[2024-08-25] MEDS: ATORVASTATIN 10 MG TABLET PO (21:09)
[2024-08-25] MEDS: INSULIN GLARGINE (*BKC) 100 UNITS/ML 35 UNITS SUB-Q (21:12)
[2024-08-26] VITALS (10 sets, daily range): BP systolic 126–144; BP diastolic 67–74; PULSE 93–106; RESP 16–20; TEMP 36.1–36.8; O2SAT 92–96
--- NOTE | 2024-08-26 01:53 | PC.NURSE ---
Daylight Savings Time For Daylight Savings Time Ending in the Fall - Clocks are moved back. For Daylight Savings Time Beginning in the Spring - Clocks are moved ahead. For [facility], the time of change occurs at 0200 hrs. Time is taken from the bistro server. This entry on the patient's chart recognizes the change in time reflected during documentation. Example: 2 entries for vital signs may be charted for 0200 hrs.
[2024-08-26 05:59] LABS: Glucose Point of Care 307 mg/dl (65-105)
[2024-08-26 06:11] LABS: Basophils Absolute Auto 0.1 K/mm3 (0.0-0.1); Basophils Percent Auto 0.6 % (0.2-1.2); Eosinophils Absolute Auto 0.6 K/mm3 (0-0.3); Eosinophils Percent Auto 7.2 % (0-4.4); Hemoglobin 12.8 g/dL (12.0-15.0); Immature Granulocyte Absolute 0.04 K/mm3 (0.00-0.031); Immature Granulocyte Percent A 0.4 % (0-0.5); Lymphocytes Absolute Auto 1.96 K/mm3 (0.9-3.2); Lymphocytes Percent Auto 21.9 % (18.3-44.2); Mean Corpuscular HGB Conc 31.2 g/dl (32-36); Mean Corpuscular Hemoglobin 29.9 pg (26-34); Mean Corpuscular Volume 95.8 fl (80-100); Monocytes Absolute Auto 0.9 K/mm3 (0.1-0.6); Monocytes Percent Auto 9.6 % (2.6-8.5); Neutrophils Absolute Auto 5.4 K/mm3 (1.3-6.7); Neutrophils Percent Auto 60.3 % (45.5-73.1); Platelet Count Result 276 k/mm3 (150-375); Red Blood Count 4.28 M/mm3 (4.2-5.4); Red Cell Distribution Width 16.2 % (11.5-14.5); White Blood Count 8.9 K/mm3 (4.5-10.0)
[2024-08-26 06:29] LABS: Alanine Aminotransferase 13 U/L (6-35); Albumin Level 3.8 g/dL (3.5-5.1); Alkaline Phosphatase 111 U/L (38-126); Anion Gap 12 mmol/L (4-12); Aspartate Amino Transferase 18 U/L (14-36); Bilirubin,Total 0.5 mg/dL (0.2-1.3); Blood Urea Nitrogen 60 mg/dL (7-17); Calcium 11.8 mg/dL (8.4-10.2); Carbon Dioxide 26 mmol/L (22-30); Chloride 97 mmol/L (98-107); Estimated CRCL calculation 22 ml/min; Estimated Glomerular Filt Rate 15; Glucose 286 mg/dL (65-110); Potassium 4.3 mmol/L (3.4-5.0); Sodium 135 mmol/L (137-145)
[2024-08-26] MEDS: LEVOTHYROXINE SODIUM 50 MCG TABLET PO (06:34)
--- NOTE | 2024-08-26 07:56 | PC.NURSE ---
EKG on pt ordered yesterday completed this morning. EKG changed from previous one on 08/17/24 and flagged as abnormal ekg. Dr. Manuel notified.
[2024-08-26] MEDS: IPRATROPIUM 0.5 MG/ALBUTEROL SULFATE 2.5 MG AMPUL.NEB 3 ML INHALATION ×2 (08:52→19:42)
[2024-08-26 09:05] LABS: Glucose Point of Care 342 mg/dl (65-105)
[2024-08-26] MEDS: FUROSEMIDE 80 MG TABLET PO ×2 (10:00→13:02)
[2024-08-26] MEDS: EMPAGLIFLOZIN 10 MG TABLET BY MOUTH (10:00)
[2024-08-26] MEDS: ASPIRIN 81 MG ENTERIC TABLET PO (10:00)
[2024-08-26] MEDS: SULFAMETHOXAZOLE/TRIMETHOPRIM 400/80 MG TABLET 1 TAB PO ×2 (10:00→20:35)
[2024-08-26] MEDS: ESCITALOPRAM OXALATE 10 MG TABLET 20 MG PO (10:00)
[2024-08-26] MEDS: PANTOPRAZOLE 40 MG TABLET PO (10:00)
[2024-08-26] MEDS: ENOXAPARIN 40 MG/0.4 ML SYRINGE SUB-Q (10:00)
[2024-08-26] MEDS: ACETAMINOPHEN 325 MG TABLET 650 MG PO ×2 (10:00→13:02)
[2024-08-26] MEDS: FLUTICASONE PROPIONATE 0.05% NA SPR 16 GM BTL (*BKC) 2 SPRAY NASAL (10:01)
[2024-08-26] MEDS: SALINE 0.65% NAS SOLN 44 ML BTL 2 SPRAY NASAL (10:01)
[2024-08-26] MEDS: METOPROLOL SUCCINATE EXT REL 25 MG TABCR PO (10:02)
[2024-08-26] MEDS: INSULIN ASPART (*BKC) 100 UNITS/ML SUB-Q ×4 (10:06→20:36)
[2024-08-26] MEDS: INSULIN ASPART (*BKC) 100 UNITS/ML 12 UNITS SUB-Q ×2 (10:06→12:54)
[2024-08-26] MEDS: BENZONATATE 100 MG CAPSULE PO (10:07)
[2024-08-26 12:19] LABS: Glucose Point of Care 321 mg/dl (65-105)
--- NOTE | 2024-08-26 12:40 | P.PNIM_ITS ---
Progress Note: A&P Assessment and Plan (1) Confusion: Code(s): R41.0 - Disorientation, unspecified Status: Acute Assessment and Plan: patient with increasing altered mental status since admission, patient slow to responding, able follow simple commands, staring into space spoke with Dr. Mack over the phone with recommendations for MMA, TSH, T3, T4, B12 and folate, follow-up outpatient to 3 weeks for Alzheimer's workup EEG pending infectious workup completed and negative ABG within normal limits MRI shows Moderate nonspecific cerebral white matter disease and pontine disease, which likely represents chronic small vessel ischemic disease, stable from 05/26/2022. gabapentin, allopurinol and narcotic medications held eeg pending sleep hygiene reduced stimuli confusion appears to be a mix possible dementia hospital-acquired hypoactive delirium and may be psychiatric issues patient also presented with low blood sugar 53 on arrival to the ED hypoxia needing oxygen supplementation. Echo EF 65-70% grade 1 diastolic Dysfunction Will check CT chest abdomen pelvis and recheck ABG (2) UTI (urinary tract infection): Qualifiers: Urinary tract infection type: site unspecified Hematuria presence: without hematuria Qualified Code(s): N39.0 - Urinary tract infection, site not specified Code(s): N39.0 - Urinary tract infection, site not specified Status: Acute Assessment and Plan: * UA revealed cloudy urine appearance, 2+ urine glucose, positive nitrate, 2+ leukocyte, 51-100 urine WBC, 4+ urine bacteria. * Urine and blood culture was obtained and pending * patient was started on Rocephin * urine culture from 06/23/2023 revealed E coli which was essentially pansensitive except for Bactrim * switched to cefepipme IV to Septra. Concludes Septra * leukocytosis resolved (3) Acute respiratory failure with hypoxia: Code(s): J96.01 - Acute respiratory failure with hypoxia Status: Acute Assessment and Plan: * patient is not on any baseline oxygen during the day however is requiring 2-4 L nasal cannula now due to hypoxia in the ER with oxygen saturation of 87% on room air. * likely secondary to CHF exacerbation complicated by chronic kidney disease stage IV * respiratory panel was negative for influenza a and B, RSV, COVID * ABG showed normal pH of 7.366, pCO2 46.2, PO2 58.7, bicarb 25.9 * patient was started on Rocephin and azithromycin while in the ED * white blood cell count was normal at 8.6, she is afebrile * D-dimer ordered, V/Q scan low probability * EKG showing sinus rhythm with a rate of 66, QTC 423 (4) CHF (congestive heart failure), NYHA class I: Qualifiers: Congestive heart failure type: unspecified Qualified Code(s): I50.9 - Heart failure, unspecified Code(s): I50.9 - Heart failure, unspecified Status: Acute Assessment and Plan: * echocardiogram from 12/30/2021 showed normal LV systolic function with an estimated EF of 65-70%, grade 1 diastolic dysfunction. * Chest x-ray reporting airspace opacities in the lower lung zones likely atelectasis. After reviewing the chest x-ray myself and comparing it to a previous chest x-ray patient does appear to have pulmonary edema * proBNP ordered * a one time dose of 40 mg of IV Lasix ordered-- Will hold off on further diuresis considering renal function * consider nephrology consult if requiring further diuresis * echocardiogram EF 65-70% restart home Lasix +1 pedal edema (5) Type 2 diabetes mellitus: Qualifiers: Diabetes mellitus detention insulin use: with detention use Diabetes mellitus complication status: with kidney complications Diabetes mellitus complication detail: with chronic kidney disease Chronic kidney disease stage: stage 3 (moderate) Chronic kidney disease stage 3 subtype: stage 3b (GFR 30-44) Qualified Code(s): E11.22 - Type 2 diabetes mellitus with diabetic chronic kidney disease; N18.32 - Chronic kidney disease, stage 3b; 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 Code(s): E11.9 - Type 2 diabetes mellitus without complications Status: Chronic Assessment and Plan: * Blood sugars ranging 201-260 * Hgb A1C 8.4 on 05/26/2022 * repeat hemoglobin A1c ordered * Accu checks AC/HS * high-dose SSI ordered * hypoglycemic protocol in place * Diabetic diet ordered * hold Farxiga and mealtime replacement insulin * hold Lantus for now considering reported blood sugar a 53, will reassess in the morning 08/19- BS had been high today- 380's * -order regular insulin x 1 and recheck * - continue high dose SS and hypoglycemia [protocol * -will add Lantus 10 units and monitor as had been stable * -if continues to be elevated- will add base meal insulin 08/20 increased Lantus 08/22 Lantus increased and increase and mealtime insulin 08/23 Lantus increased and increase and mealtime insulin 08/24 Lantus increased and increase and mealtime insulin (6) Chronic kidney disease, stage IV (severe): Code(s): N18.4 - Chronic kidney disease, stage 4 (severe) Status: Chronic Assessment and Plan: * creatinine 2.9, EGFR 16 * baseline creatinine 2.10-2.60, baseline EGFR 18-23 * continue to trend * avoid nephrotoxic medications or testing with IV contrast * - nephrology consulted- PTH level urine calcium to creatinine ratio. (7) Hypertension: Code(s): I10 - Essential (primary) hypertension Status: Chronic Assessment and Plan: * blood pressure ranging 114/72-136/72 * continue carvedilol (8) Obstructive sleep apnea on CPAP: Code(s): G47.33 - Obstructive sleep apnea (adult) (pediatric); Z99.89 - Dependence on other enabling machines and devices Status: Chronic Assessment and Plan: * patient does not wear CPAP only wears 2L of oxygen at night only * Recheck ABG (9) Hyperlipidemia: Qualifiers: Hyperlipidemia type: other hyperlipidemia Qualified Code(s): E78.49 - Other hyperlipidemia Code(s): E78.5 - Hyperlipidemia, unspecified Status: Chronic Assessment and Plan: * continue atorvastatin and aspirin (10) Hypothyroidism: Qualifiers: Hypothyroidism type: acquired Qualified Code(s): E03.9 - Hypothyroidism, unspecified Code(s): E03.9 - Hypothyroidism, unspecified Status: Chronic Assessment and Plan: * continue Synthroid * TSH 1.9 (11) Elevated d-dimer: Code(s): R79.89 - Other specified abnormal findings of blood chemistry Status: Acute Assessment and Plan: * D-dimer 0.79 * Will get V/Q scan to rule out PE considering her history of DVT and PE in the past and is not currently on any anticoagulation * see Acute resp failure plan * VQ scan shows Low probability for pulmonary embolism. (12) Radial styloid fracture: Qualifiers: Encounter type: initial encounter Fracture type: closed Fracture alignment: nondisplaced Laterality: right Qualified Code(s): S52.514A - Nondisplaced fracture of right radial styloid process, initial encounter for closed fracture Code(s): S52.513A - Displaced fracture of unspecified radial styloid process, initial encounter for closed fracture Status: Acute Assessment and Plan: Right Possibly subacute. orthopedics consulted brace for support okay for range of motion platform walker weight-bearing through elbow brace for 4-6 weeks and follow-up outpatient clinic Subjective Date/time seen: 08/26/24 12:40 Interval history: Patient remains confused. Remains afebrile P on 2 L oxygen. Review of Systems Review of Systems: All systems reviewed & are unremarkable except as noted in HPI and below Exam Narrative: General: Week appearance, well nourished, pleasantly Confused Head: atraumatic, no encephalopathy Eyes: PERRLA, sclera clear ENT: moist mucous membranes, nasal passages clear Neck: supple, no JVD, no adenopathy, trachea midline Cardiac: Normal S1 and S2. No murmur, gallops or friction rubs, peripheral pulses intact. Respiratory: Lungs clear in the upper lobes, diminished in the bases, currently on room air, no adventitious lung sounds noted Gastrointestinal: soft, non-distended, non-tender, normoactive bowel sounds. : voiding without difficulty via purewick, clear and yellow. Extremities: moves all extremities fair, 1 to 2+ pitting edema to bilateral lower extremity Skin: clean, dry, intact. No wounds or lesions. Neuro: Alert and oriented x 2, cranial nerves intact, no neuro deficits. Slow response Psych: flat mood Objective Data Vital Signs Vital Signs: Vital Signs - 24 hr 08/25/24 14:30 08/25/24 18:31 08/25/24 21:32 Temperature 97.7 F 98.5 F Pulse Rate 110 H 107 H Respiratory Rate 18 20 Blood Pressure 142/78 H Pulse Oximetry 95 Oxygen Delivery Oxygen Flow Rate 08/25/24 21:35 08/25/24 21:40 08/25/24 22:20 Temperature 97.5 F L Pulse Rate 107 H 108 H 109 H Respiratory Rate 20 20 16 Blood Pressure 145/74 H Pulse Oximetry 92 94 Oxygen Delivery Nasal Cannula Oxygen Flow Rate 3 08/25/24 20:00 08/26/24 06:00 08/26/24 08:54 Temperature 97.4 F L Pulse Rate 97 Respiratory Rate 16 Blood Pressure 144/74 H Pulse Oximetry 99 95 92 Oxygen Delivery Nasal Cannula Nasal Cannula Oxygen Flow Rate 3 2 08/26/24 08:54 08/26/24 09:03 08/26/24 10:02 Temperature Pulse Rate 101 H 102 H 106 H Respiratory Rate 20 20 Blood Pressure Pulse Oximetry Oxygen Delivery Oxygen Flow Rate Intake/Output Intake/Output: Intake & Output 08/23/24 08/24/24 08/25/24 08/26/24 23:59 23:59 23:59 22:59 Intake Total 1550 1370 1740 400 Output Total 1000 2000 1900 700 Balance 550 -630 -160 -300 Meds/Results Medications: Active Medications Generic Name Dose Route Start Last Admin Trade Name Freq PRN Reason Stop Dose Admin Acetaminophen 650 mg 08/17/24 16:39 08/26/24 10:00 Acetaminophen 325 Mg Tablet PO 650 mg Q4H PRN Administration Mild Pain (1-3) or Fever Hydrocodone Bitart/Acetaminophen 1 tab 08/18/24 14:16 08/18/24 21:39 Hydrocodone/Acetaminophen (*Crx) 5-325 Mg Tablet PO 1 tab Q4H PRN Administration Pain Rated 4-6 Albuterol/Ipratropium 3 ml 08/17/24 20:00 08/26/24 08:52 Ipratropium 0.5 Mg/Albuterol Sulfate 2.5 Mg Ampul.Neb 3 Ml INHALATION 3 ml Q6HRT KAELA Administration Allopurinol 300 mg 08/18/24 09:00 08/22/24 09:58 Allopurinol 300 Mg Tablet PO 300 mg DAILY KAELA Administration Amitriptyline HCl 10 mg 08/17/24 21:00 08/24/24 21:24 Amitriptyline Hcl 10 Mg Tablet PO 10 mg QHS KAELA Administration Aspirin 81 mg 08/18/24 09:00 08/26/24 10:00 Aspirin 81 Mg Enteric Tablet PO 81 mg QAM KAELA Administration Atorvastatin Calcium 10 mg 08/17/24 21:00 08/25/24 21:09 Atorvastatin 10 Mg Tablet PO 10 mg HS KAELA Administration Benzonatate 100 mg 08/17/24 20:42 08/26/24 10:07 Benzonatate 100 Mg Capsule PO 100 mg TID PRN Administration Cough Dextrose 12.5 gm 08/17/24 17:18 Dextrose 50% 25 Gm/50 Ml Syringe IV PUSH PRN PRN Hypoglycemia Protocol Empagliflozin 10 mg 08/24/24 09:00 08/26/24 10:00 Empagliflozin 10 Mg Tablet BY MOUTH 10 mg DAILY KAELA Administration Enoxaparin Sodium 40 mg 08/23/24 09:00 08/26/24 10:00 Enoxaparin 40 Mg/0.4 Ml Syringe SUB-Q 40 mg DAILY KAELA Administration Escitalopram Oxalate 20 mg 08/18/24 09:00 08/26/24 10:00 Escitalopram Oxalate 10 Mg Tablet PO 20 mg DAILY KAELA Administration Fluticasone Propionate 2 spray 08/18/24 09:00 08/26/24 10:01 Fluticasone Propionate 0.05% Na Spr 16 Gm Btl (*Bkc) NASAL 2 spray DAILY KAELA Administration Furosemide 40 mg 08/18/24 09:00 Furosemide Inj 40 Mg/4 Ml Vial IV PUSH BID KAELA Furosemide 80 mg 08/23/24 15:00 08/26/24 10:00 Furosemide 80 Mg Tablet PO 80 mg BID@0800,1400 KAELA Administration Gabapentin 300 mg 08/17/24 21:00 08/21/24 20:30 Gabapentin 300 Mg Capsule PO 300 mg QHS KAELA Administration Glucagon 1 mg 08/17/24 17:18 Glucagon For Inj 1 Mg Vial IM PRN PRN Hypoglycemia Protocol Glucose 15 gm 08/17/24 17:18 Glucose Oral Gel 15 Gm Of Glucse In 37.5 Gm Tube PO PRN PRN Hypoglycemia Protocol Dextrose 1,000 mls @ 100 mls/hr 08/17/24 17:18 Dextrose 5% 1,000 Ml IVPB PRN PRN Hypoglycemia Protocol Insulin Aspart 2 - 4 units 08/17/24 21:00 08/25/24 21:12 Insulin Aspart (*Bkc) 100 Units/Ml SUB-Q 3 units HS KAELA Administration Protocol Insulin Aspart 2 - 5 units 08/24/24 17:00 08/26/24 10:06 Insulin Aspart (*Bkc) 100 Units/Ml SUB-Q 4 units TIDWM KAELA Administration Protocol Insulin Aspart 12 units 08/25/24 12:00 08/26/24 10:06 Insulin Aspart (*Bkc) 100 Units/Ml SUB-Q 12 units TIDWM KAELA Administration Insulin Glargine 35 units 08/25/24 21:00 08/25/24 21:12 Insulin Glargine (*Bkc) 100 Units/Ml SUB-Q 35 units HS KAELA Administration Levothyroxine Sodium 50 mcg 08/18/24 06:30 08/26/24 06:34 Levothyroxine Sodium 50 Mcg Tablet PO 50 mcg DAILY@0630 KAELA Administration Metoprolol Succinate 25 mg 08/21/24 09:00 08/26/24 10:02 Metoprolol Succinate Ext Rel 25 Mg Tabcr PO 25 mg QAM KAELA Administration Ondansetron HCl 4 mg 08/17/24 17:17 Ondansetron Inj 4 Mg/2 Ml Vial IV PUSH Q6H PRN Nausea And Vomiting Pantoprazole Sodium 40 mg 08/18/24 09:00 08/26/24 10:00 Pantoprazole 40 Mg Tablet PO 40 mg QAM KAELA Administration Sodium Chloride 2 spray 08/17/24 20:42 08/26/24 10:01 Saline 0.65% Sha Soln 44 Ml Btl NASAL 2 spray QID PRN Administration nasal congestion/dryness Trimethoprim/Sulfamethoxazole 1 tab 08/23/24 09:00 08/26/24 10:00 Sulfamethoxazole/Trimethoprim 400/80 Mg Tablet PO 08/26/24 21:01 1 tab Q12HR KAELA Administration Radiology Results: ITS Impressions Shoulder X-Ray 08/18/24 15:56 IMPRESSION: Osteopenia Head CT 08/20/24 09:56 IMPRESSION: 1. Stable moderate nonspecific cerebral white matter disease, which likely represents chronic small vessel ischemic disease. Pulmonary Perfusion Imaging 08/20/24 12:15 IMPRESSION: 1. Low probability for pulmonary embolism. Brain MRI 08/22/24 16:06 IMPRESSION: 1. Moderate nonspecific cerebral white matter disease and pontine disease, which likely represents chronic small vessel ischemic disease, stable from 05/26/2022. Chest X-Ray 08/22/24 18:38 IMPRESSION: Moderate interstitial edema. Subsegmental bibasilar atelectasis/consolidation. Possible small bilateral effusions. Hand X-Ray 08/23/24 15:26 IMPRESSION: Possible fracture in the distal radius. Clinical correlation and proper images are advised. Slight narrowing of the proximal and distal interphalangeal joints. Forearm X-Ray 08/24/24 11:01 IMPRESSION: 1. No fracture identified. 2. Loose bodies in the radiocarpal compartment. Modified Barium Swallow 08/24/24 14:17 IMPRESSION: Minimal pharyngeal dysphagia with trace shallow laryngeal penetration without aspiration. Please correlate with speech pathologist findings and specific feeding recommendations. Labs Labs: Laboratory Results - last 24 hr 08/25/24 08/25/24 08/26/24 17:36 20:33 05:58 WBC 8.9 RBC 4.28 Hgb 12.8 Hct 41.0 MCV 95.8 MCH 29.9 MCHC 31.2 L RDW 16.2 H Plt Count 276 MPV 10.0 Immature Gran % (Auto) 0.4 Neut % (Auto) 60.3 Lymph % (Auto) 21.9 [place] % (Auto) 9.6 H Eos % (Auto) 7.2 H Baso % (Auto) 0.6 Lymph # (Auto) 1.96 [place] # (Auto) 0.9 H Eos # (Auto) 0.6 H Baso # (Auto) 0.1 Abs Immat Gran (auto) 0.04 H Absolute Neuts (auto) 5.4 Absolute Nucleated RBC 0.000 Nucleated RBC % 0.0 Sodium 135 L Potassium 4.3 Chloride 97 L Carbon Dioxide 26 Anion Gap 12 BUN 60 H D Creatinine 3.00 H Estim Creat Clear Calc 22 Estimated GFR 15 L Glucose 286 H POC Capillary Glucose 380 H 307 H Calcium 11.8 H Total Bilirubin 0.5 AST 18 ALT 13 Alkaline Phosphatase 111 Total Protein 7.0 Albumin 3.8 08/26/24 08/26/24 09:03 12:11 WBC RBC Hgb Hct MCV MCH MCHC RDW Plt Count MPV Immature Gran % (Auto) Neut % (Auto) Lymph % (Auto) [place] % (Auto) Eos % (Auto) Baso % (Auto) Lymph # (Auto) [place] # (Auto) Eos # (Auto) Baso # (Auto) Abs Immat Gran (auto) Absolute Neuts (auto) Absolute Nucleated RBC Nucleated RBC % Sodium Potassium Chloride Carbon Dioxide Anion Gap BUN Creatinine Estim Creat Clear Calc Estimated GFR Glucose POC Capillary Glucose 342 H 321 H Calcium Total Bilirubin AST ALT Alkaline Phosphatase Total Protein Albumin
[2024-08-26] MEDS: INSULIN ASPART (*BKC) 100 UNITS/ML 15 UNITS SUB-Q ×2 (13:04→17:59)
[2024-08-26 13:27] LABS: Alveolar/Arterial O2 Gradient 127.2 mmHg; Base Excess ABG 2.3 mEq/l (+/-2.0); Device NASAL CANNULA; Fractional Inspired Oxygen 32 %; HCO3 ABG 25.4 mEq/l (22.0-26.0); Oxygen Content ABG 16.9 %vol (16.0-22.0); Oxyhemoglobin 90.2 % THb (90.0-100.0); PCO2 ABG 34.7 mmHg (35.0-45.0); PO2 ABG 60.4 mmHg (80.0-100.0); PO2 FiO2 Ratio Arterial Blood 1.89 %; Site Drawn RIGHT BRACHIAL; Total Hemoglobin 13.3 g/dL (12.0-18.0); pH ABG 7.483 (7.350-7.450)
[2024-08-26 14:04] LABS: Lactic Acid Reflex 1.4 mmol/L (0.7-2.0)
[2024-08-26 14:05] LABS: Ammonia < 9 umol/L (9-30)
[2024-08-26 17:38] LABS: Glucose Point of Care 247 mg/dl (65-105)
[2024-08-26] MEDS: ATORVASTATIN 10 MG TABLET PO (20:35)
[2024-08-26] MEDS: INSULIN GLARGINE (*BKC) 100 UNITS/ML 45 UNITS SUB-Q (20:36)
[2024-08-26 22:47] LABS: Glucose Point of Care 256 mg/dl (65-105)
[2024-08-27] VITALS (14 sets, daily range): BP systolic 116–147; BP diastolic 63–88; PULSE 95–107; RESP 16–24; TEMP 36.1–37; O2SAT 92–100
[2024-08-27] MEDS: IPRATROPIUM 0.5 MG/ALBUTEROL SULFATE 2.5 MG AMPUL.NEB 3 ML INHALATION ×3 (02:36→21:25)
[2024-08-27 05:52] LABS: Basophils Absolute Auto 0.1 K/mm3 (0.0-0.1); Basophils Percent Auto 0.9 % (0.2-1.2); Eosinophils Absolute Auto 0.7 K/mm3 (0-0.3); Eosinophils Percent Auto 7.2 % (0-4.4); Hematocrit 41.1 % (37.0-47.0); Hemoglobin 12.4 g/dL (12.0-15.0); Immature Granulocyte Absolute 0.04 K/mm3 (0.00-0.031); Immature Granulocyte Percent A 0.4 % (0-0.5); Lymphocytes Absolute Auto 2.17 K/mm3 (0.9-3.2); Lymphocytes Percent Auto 23.1 % (18.3-44.2); Mean Corpuscular HGB Conc 30.2 g/dl (32-36); Mean Corpuscular Hemoglobin 29.1 pg (26-34); Mean Corpuscular Volume 96.5 fl (80-100); Mean Platelet Volume 10.1 fl (7.4-10.4); Monocytes Absolute Auto 0.8 K/mm3 (0.1-0.6); Monocytes Percent Auto 8.6 % (2.6-8.5); Neutrophils Absolute Auto 5.6 K/mm3 (1.3-6.7); Neutrophils Percent Auto 59.8 % (45.5-73.1); Platelet Count Result 320 k/mm3 (150-375); Red Blood Count 4.26 M/mm3 (4.2-5.4); White Blood Count 9.4 K/mm3 (4.5-10.0)
[2024-08-27 06:01] LABS: Alanine Aminotransferase 12 U/L (6-35); Albumin Level 3.8 g/dL (3.5-5.1); Alkaline Phosphatase 111 U/L (38-126); Anion Gap 14 mmol/L (4-12); Aspartate Amino Transferase 18 U/L (14-36); Bilirubin,Total 0.4 mg/dL (0.2-1.3); Blood Urea Nitrogen 68 mg/dL (7-17); Calcium 11.8 mg/dL (8.4-10.2); Carbon Dioxide 27 mmol/L (22-30); Chloride 97 mmol/L (98-107); Estimated CRCL calculation 20 ml/min; Estimated Glomerular Filt Rate 14; Glucose 235 mg/dL (65-110); Magnesium 2.4 mg/dL (1.6-2.3); Sodium 138 mmol/L (137-145)
--- NOTE | 2024-08-27 08:12 | PCPTNOTE ---
The patient treatment was not able to be completed at this time due to patient going for CT scan. Will plan to continue treatment per plan of care.
[2024-08-27 08:14] LABS: Glucose Point of Care 257 mg/dl (65-105)
[2024-08-27] MEDS: PANTOPRAZOLE 40 MG TABLET PO (09:16)
[2024-08-27] MEDS: EMPAGLIFLOZIN 10 MG TABLET BY MOUTH (09:16)
[2024-08-27] MEDS: ESCITALOPRAM OXALATE 10 MG TABLET 20 MG PO (09:16)
[2024-08-27] MEDS: ASPIRIN 81 MG ENTERIC TABLET PO (09:16)
[2024-08-27] MEDS: ACETAMINOPHEN 325 MG TABLET 650 MG PO ×2 (09:17→12:51)
[2024-08-27] MEDS: ENOXAPARIN 40 MG/0.4 ML SYRINGE SUB-Q (09:17)
[2024-08-27] MEDS: METOPROLOL SUCCINATE EXT REL 25 MG TABCR PO (09:18)
[2024-08-27] MEDS: SALINE 0.65% NAS SOLN 44 ML BTL 2 SPRAY NASAL (09:18)
[2024-08-27] MEDS: FLUTICASONE PROPIONATE 0.05% NA SPR 16 GM BTL (*BKC) 2 SPRAY NASAL (09:19)
[2024-08-27] MEDS: INSULIN ASPART (*BKC) 100 UNITS/ML SUB-Q ×4 (09:20→19:42)
[2024-08-27] MEDS: INSULIN ASPART (*BKC) 100 UNITS/ML 15 UNITS SUB-Q ×3 (09:21→17:34)
--- NOTE | 2024-08-27 09:52 | P.PNIM_ITS ---
Progress Note: A&P Assessment and Plan (1) Confusion: Code(s): R41.0 - Disorientation, unspecified Status: Acute Assessment and Plan: patient with increasing altered mental status since admission, patient slow to responding, able follow simple commands, staring into space spoke with Dr. Mack over the phone with recommendations for MMA, TSH, T3, T4, B12 and folate, follow-up outpatient to 3 weeks for Alzheimer's workup EEG pending infectious workup completed and negative ABG within normal limits MRI shows Moderate nonspecific cerebral white matter disease and pontine disease, which likely represents chronic small vessel ischemic disease, stable from 05/26/2022. gabapentin, allopurinol and narcotic medications held eeg pending sleep hygiene reduced stimuli confusion appears to be a mix possible dementia hospital-acquired hypoactive delirium and may be psychiatric issues patient also presented with low blood sugar 53 on arrival to the ED hypoxia needing oxygen supplementation. Echo EF 65-70% grade [address] chest abdomen pelvis with no acute findings. Repeat ABG unremarkable lactic acid normal Hypercalcemia noted. Will give IV fluids today BRADY also worsening Neurology consult May need spinal tap and CSF analysis (2) UTI (urinary tract infection): Qualifiers: Urinary tract infection type: site unspecified Hematuria presence: without hematuria Qualified Code(s): N39.0 - Urinary tract infection, site not specified Code(s): N39.0 - Urinary tract infection, site not specified Status: Acute Assessment and Plan: * UA revealed cloudy urine appearance, 2+ urine glucose, positive nitrate, 2+ leukocyte, 51-100 urine WBC, 4+ urine bacteria. * Urine and blood culture was obtained and pending * patient was started on Rocephin * urine culture from 06/23/2023 revealed E coli which was essentially pansensitive except for Bactrim * switched to cefepipme IV to Septra. Concludes Septra * leukocytosis resolved (3) Acute respiratory failure with hypoxia: Code(s): J96.01 - Acute respiratory failure with hypoxia Status: Acute Assessment and Plan: * patient is not on any baseline oxygen during the day however is requiring 2-4 L nasal cannula now due to hypoxia in the ER with oxygen saturation of 87% on room air. * likely secondary to CHF exacerbation complicated by chronic kidney disease stage IV * respiratory panel was negative for influenza a and B, RSV, COVID * ABG showed normal pH of 7.366, pCO2 46.2, PO2 58.7, bicarb 25.9 * patient was started on Rocephin and azithromycin while in the ED * white blood cell count was normal at 8.6, she is afebrile * D-dimer ordered, V/Q scan low probability * EKG showing sinus rhythm with a rate of 66, QTC 423 (4) CHF (congestive heart failure), NYHA class I: Qualifiers: Congestive heart failure type: unspecified Qualified Code(s): I50.9 - Heart failure, unspecified Code(s): I50.9 - Heart failure, unspecified Status: Acute Assessment and Plan: * echocardiogram from 12/30/2021 showed normal LV systolic function with an estimated EF of 65-70%, grade 1 diastolic dysfunction. * Chest x-ray reporting airspace opacities in the lower lung zones likely atelectasis. After reviewing the chest x-ray myself and comparing it to a previous chest x-ray patient does appear to have pulmonary edema * proBNP ordered * a one time dose of 40 mg of IV Lasix ordered-- Will hold off on further diuresis considering renal function * consider nephrology consult if requiring further diuresis * echocardiogram EF 65-70% restart home Lasix +1 pedal edema (5) Type 2 diabetes mellitus: Qualifiers: Diabetes mellitus senior care insulin use: with senior care use Diabetes mellitus complication status: with kidney complications Diabetes mellitus complication detail: with chronic kidney disease Chronic kidney disease stage: stage 3 (moderate) Chronic kidney disease stage 3 subtype: stage 3b (GFR 30-44) Qualified Code(s): E11.22 - Type 2 diabetes mellitus with diabetic chronic kidney disease; N18.32 - Chronic kidney disease, stage 3b; Z79.4 - [facility] (current) use of insulin Code(s): E11.9 - Type 2 diabetes mellitus without complications Status: Chronic Assessment and Plan: * Blood sugars ranging 201-260 * Hgb A1C 8.4 on 05/26/2022 * repeat hemoglobin A1c ordered * Accu checks AC/HS * high-dose SSI ordered * hypoglycemic protocol in place * Diabetic diet ordered * hold Farxiga and mealtime replacement insulin * hold Lantus for now considering reported blood sugar a 53, will reassess in the morning 08/19- BS had been high today- 380's * -order regular insulin x 1 and recheck * - continue high dose SS and hypoglycemia [protocol * -will add Lantus 10 units and monitor as had been stable * -if continues to be elevated- will add base meal insulin 08/20 increased Lantus 08/22 Lantus increased and increase and mealtime insulin 08/23 Lantus increased and increase and mealtime insulin 08/24 Lantus increased and increase and mealtime insulin (6) Chronic kidney disease, stage IV (severe): Code(s): N18.4 - Chronic kidney disease, stage 4 (severe) Status: Chronic Assessment and Plan: * creatinine 2.9, EGFR 16 * baseline creatinine 2.10-2.60, baseline EGFR 18-23 * continue to trend * avoid nephrotoxic medications or testing with IV contrast * - nephrology consulted- PTH level urine calcium to creatinine ratio. (7) Hypertension: Code(s): I10 - Essential (primary) hypertension Status: Chronic Assessment and Plan: * blood pressure ranging 114/72-136/72 * continue carvedilol (8) Obstructive sleep apnea on CPAP: Code(s): G47.33 - Obstructive sleep apnea (adult) (pediatric); Z99.89 - Dependence on other enabling machines and devices Status: Chronic Assessment and Plan: * patient does not wear CPAP only wears 2L of oxygen at night only * Recheck ABG (9) Hyperlipidemia: Qualifiers: Hyperlipidemia type: other hyperlipidemia Qualified Code(s): E78.49 - Other hyperlipidemia Code(s): E78.5 - Hyperlipidemia, unspecified Status: Chronic Assessment and Plan: * continue atorvastatin and aspirin (10) Hypothyroidism: Qualifiers: Hypothyroidism type: acquired Qualified Code(s): E03.9 - Hypothyroidism, unspecified Code(s): E03.9 - Hypothyroidism, unspecified Status: Chronic Assessment and Plan: * continue Synthroid * TSH 1.9 (11) Elevated d-dimer: Code(s): R79.89 - Other specified abnormal findings of blood chemistry Status: Acute Assessment and Plan: * D-dimer 0.79 * Will get V/Q scan to rule out PE considering her history of DVT and PE in the past and is not currently on any anticoagulation * see Acute resp failure plan * VQ scan shows Low probability for pulmonary embolism. (12) Radial styloid fracture: Qualifiers: Encounter type: initial encounter Fracture type: closed Fracture alignment: nondisplaced Laterality: right Qualified Code(s): S52.514A - Nondisplaced fracture of right radial styloid process, initial encounter for closed fracture Code(s): S52.513A - Displaced fracture of unspecified radial styloid process, initial encounter for closed fracture Status: Acute Assessment and Plan: Right Possibly subacute. orthopedics consulted brace for support okay for range of motion platform walker weight-bearing through elbow brace for 4-6 weeks and follow-up outpatient clinic Subjective Date/time seen: 08/27/24 09:52 Interval history: No overnight events. Patient Remains confused. No shortness of breath or Chest pain. Remains On 2 L oxygen. Review of Systems Review of Systems: All systems reviewed & are unremarkable except as noted in HPI and below Exam Narrative: General: Week appearance, well nourished, pleasantly Confused Head: atraumatic, no encephalopathy Eyes: PERRLA, sclera clear ENT: moist mucous membranes, nasal passages clear Neck: supple, no JVD, no adenopathy, trachea midline Cardiac: Normal S1 and S2. No murmur, gallops or friction rubs, peripheral pulses intact. Respiratory: Lungs clear in the upper lobes, diminished in the bases, currently on room air, no adventitious lung sounds noted Gastrointestinal: soft, non-distended, non-tender, normoactive bowel sounds. : voiding without difficulty via purewick, clear and yellow. Extremities: moves all extremities fair, 1 to 2+ pitting edema to bilateral lower extremity Skin: clean, dry, intact. No wounds or lesions. Neuro: Alert and oriented x 1, cranial nerves intact, no neuro deficits. Slow response Psych: flat mood Objective Data Vital Signs Vital Signs: Vital Signs - 24 hr 08/26/24 10:02 08/26/24 10:00 08/26/24 14:30 Temperature 97.0 F L Pulse Rate 106 H 104 H Respiratory Rate 16 Blood Pressure 126/67 Pulse Oximetry 95 94 Oxygen Delivery Nasal Cannula Oxygen Flow Rate 3 08/26/24 19:42 08/26/24 19:42 08/26/24 19:50 Temperature Pulse Rate 94 95 Respiratory Rate 20 20 Blood Pressure Pulse Oximetry 94 Oxygen Delivery Nasal Cannula Oxygen Flow Rate 3 08/26/24 20:57 08/26/24 20:00 08/27/24 02:38 Temperature 98.2 F Pulse Rate 93 95 Respiratory Rate 18 20 Blood Pressure 139/68 Pulse Oximetry 94 96 Oxygen Delivery Nasal Cannula Oxygen Flow Rate 3 08/27/24 02:48 08/27/24 05:33 08/27/24 09:18 Temperature 98.6 F Pulse Rate 95 103 H 104 H Respiratory Rate 20 18 Blood Pressure 142/83 H Pulse Oximetry 100 Oxygen Delivery Oxygen Flow Rate Intake/Output Intake/Output: Intake & Output 08/25/24 08/26/24 08/26/24 08/27/24 00:59 00:59 23:59 23:59 Intake Total 240 Output Total 450 Balance -210 Meds/Results Medications: Active Medications Generic Name Dose Route Start Last Admin Trade Name Freq PRN Reason Stop Dose Admin Acetaminophen 650 mg 08/17/24 16:39 08/27/24 09:17 Acetaminophen 325 Mg Tablet PO 650 mg Q4H PRN Administration Mild Pain (1-3) or Fever Hydrocodone Bitart/Acetaminophen 1 tab 08/18/24 14:16 08/18/24 21:39 Hydrocodone/Acetaminophen (*Crx) 5-325 Mg Tablet PO 1 tab Q4H PRN Administration Pain Rated 4-6 Albuterol/Ipratropium 3 ml 08/17/24 20:00 08/27/24 08:32 Ipratropium 0.5 Mg/Albuterol Sulfate 2.5 Mg Ampul.Neb 3 Ml INHALATION Not Given Q6HRT KAELA Allopurinol 300 mg 08/18/24 09:00 08/22/24 09:58 Allopurinol 300 Mg Tablet PO 300 mg DAILY KAELA Administration Amitriptyline HCl 10 mg 08/17/24 21:00 08/24/24 21:24 Amitriptyline Hcl 10 Mg Tablet PO 10 mg QHS KAELA Administration Aspirin 81 mg 08/18/24 09:00 08/27/24 09:16 Aspirin 81 Mg Enteric Tablet PO 81 mg QAM KAELA Administration Atorvastatin Calcium 10 mg 08/17/24 21:00 08/26/24 20:35 Atorvastatin 10 Mg Tablet PO 10 mg HS KAELA Administration Benzonatate 100 mg 08/17/24 20:42 08/26/24 10:07 Benzonatate 100 Mg Capsule PO 100 mg TID PRN Administration Cough Dextrose 12.5 gm 08/17/24 17:18 Dextrose 50% 25 Gm/50 Ml Syringe IV PUSH PRN PRN Hypoglycemia Protocol Empagliflozin 10 mg 08/24/24 09:00 08/27/24 09:16 Empagliflozin 10 Mg Tablet BY MOUTH 10 mg DAILY KAELA Administration Enoxaparin Sodium 40 mg 08/23/24 09:00 08/27/24 09:17 Enoxaparin 40 Mg/0.4 Ml Syringe SUB-Q 40 mg DAILY KAELA Administration Escitalopram Oxalate 20 mg 08/18/24 09:00 08/27/24 09:16 Escitalopram Oxalate 10 Mg Tablet PO 20 mg DAILY KAELA Administration Fluticasone Propionate 2 spray 08/18/24 09:00 08/27/24 09:19 Fluticasone Propionate 0.05% Na Spr 16 Gm Btl (*Bkc) NASAL 2 spray DAILY KAELA Administration Furosemide 40 mg 08/18/24 09:00 Furosemide Inj 40 Mg/4 Ml Vial IV PUSH BID KAELA Furosemide 80 mg 08/23/24 15:00 08/27/24 09:15 Furosemide 80 Mg Tablet PO Not Given BID@0800,1400 [facility] Gabapentin 300 mg 08/17/24 21:00 08/21/24 20:30 Gabapentin 300 Mg Capsule PO 300 mg QHS KAELA Administration Glucagon 1 mg 08/17/24 17:18 Glucagon For Inj 1 Mg Vial IM PRN PRN Hypoglycemia Protocol Glucose 15 gm 08/17/24 17:18 Glucose Oral Gel 15 Gm Of Glucse In 37.5 Gm Tube PO PRN PRN Hypoglycemia Protocol Dextrose 1,000 mls @ 100 mls/hr 08/17/24 17:18 Dextrose 5% 1,000 Ml IVPB PRN PRN Hypoglycemia Protocol Sodium Chloride 1,000 mls @ 75 mls/hr 08/27/24 09:50 Normal Saline Iv IV CONT .[id number] [facility] Insulin Aspart 2 - 4 units 08/17/24 21:00 08/26/24 20:36 Insulin Aspart (*Bkc) 100 Units/Ml SUB-Q 2 units HS [facility] Administration Protocol Insulin Aspart 2 - 5 units 08/24/24 17:00 08/27/24 09:20 Insulin Aspart (*Bkc) 100 Units/Ml SUB-Q 3 units TIDWM KAELA Administration Protocol Insulin Aspart 15 units 08/26/24 12:00 08/27/24 09:21 Insulin Aspart (*Bkc) 100 Units/Ml SUB-Q 15 units TIDWM K[facility]A Administration Insulin Glargine 45 units 08/26/24 21:00 08/26/24 20:36 Insulin Glargine (*Bkc) 100 Units/Ml SUB-Q 45 units HS [facility]AELA Administration Levothyroxine Sodium 50 mcg 08/18/24 06:30 08/27/24 06:13 Levothyroxine Sodium 50 Mcg Tablet PO Not Given DAILY@0630 [facility] Metoprolol Succinate 25 mg 08/21/24 09:00 08/27/24 09:18 Metoprolol Succinate Ext Rel 25 Mg Tabcr PO 25 mg QAM KAELA Administration Ondansetron HCl 4 mg 08/17/24 17:17 Ondansetron Inj 4 Mg/2 Ml Vial IV PUSH Q6H PRN Nausea And Vomiting Pantoprazole Sodium 40 mg 08/18/24 09:00 08/27/24 09:16 Pantoprazole 40 Mg Tablet PO 40 mg QAM KAELA Administration Sodium Chloride 2 spray 08/17/24 20:42 08/27/24 09:18 Saline 0.65% Sha Soln 44 Ml Btl NASAL 2 spray QID PRN Administration nasal congestion/dryness Radiology Results: ITS Impressions Shoulder X-Ray 08/18/24 15:56 IMPRESSION: Osteopenia Head CT 08/20/24 09:56 IMPRESSION: 1. Stable moderate nonspecific cerebral white matter disease, which likely represents chronic small vessel ischemic disease. Pulmonary Perfusion Imaging 08/20/24 12:15 IMPRESSION: 1. Low probability for pulmonary embolism. Brain MRI 08/22/24 16:06 IMPRESSION: 1. Moderate nonspecific cerebral white matter disease and pontine disease, which likely represents chronic small vessel ischemic disease, stable from 05/26/2022. Chest X-Ray 08/22/24 18:38 IMPRESSION: Moderate interstitial edema. Subsegmental bibasilar atelectasis/consolidation. Possible small bilateral effusions. Hand X-Ray 08/23/24 15:26 IMPRESSION: Possible fracture in the distal radius. Clinical correlation and proper images are advised. Slight narrowing of the proximal and distal interphalangeal joints. Forearm X-Ray 08/24/24 11:01 IMPRESSION: 1. No fracture identified. 2. Loose bodies in the radiocarpal compartment. Modified Barium Swallow 08/24/24 14:17 IMPRESSION: Minimal pharyngeal dysphagia with trace shallow laryngeal penetration without aspiration. Please correlate with speech pathologist findings and specific feeding recommendations. Chest/Abdomen/Pelvis CT 08/27/24 09:37 IMPRESSION: 1. Mild atelectasis in the lungs. Labs Labs: Laboratory Results - last 24 hr 08/26/24 08/26/24 08/26/24 12:11 13:12 13:44 WBC RBC Hgb Hct MCV MCH MCHC RDW Plt Count MPV Immature Gran % (Auto) Neut % (Auto) Lymph % (Auto) [place] % (Auto) Eos % (Auto) Baso % (Auto) Lymph # (Auto) [place] # (Auto) Eos # (Auto) Baso # (Auto) Abs Immat Gran (auto) Absolute Neuts (auto) Absolute Nucleated RBC Nucleated RBC % Puncture Site Right brachial ABG pH 7.483 H ABG pCO2 34.7 L ABG pO2 60.4 L ABG PO2/FiO2 Ratio 1.89 ABG HCO3 25.4 ABG O2 Saturation 93.0 L ABG O2 Content 16.9 ABG Base Excess 2.3 A-a Gradient 127.2 Oxyhemoglobin 90.2 Total Hemoglobin 13.3 O2 Delivery Device Nasal cannula O2 Liters/Min 3.0 FiO2 32 Sodium Potassium Chloride Carbon Dioxide Anion Gap BUN Creatinine Estim Creat Clear Calc Estimated GFR Glucose POC Capillary Glucose 321 H Lactic Acid 1.4 Calcium Magnesium Total Bilirubin AST ALT Alkaline Phosphatase Ammonia < 9 L Total Protein Albumin 08/26/24 08/26/24 08/27/24 17:34 20:18 05:22 WBC 9.4 RBC 4.26 Hgb 12.4 Hct 41.1 MCV 96.5 MCH 29.1 MCHC 30.2 L RDW 16.0 H Plt Count 320 MPV 10.1 Immature Gran % (Auto) 0.4 Neut % (Auto) 59.8 Lymph % (Auto) 23.1 [place] % (Auto) 8.6 H Eos % (Auto) 7.2 H Baso % (Auto) 0.9 Lymph # (Auto) 2.17 [place] # (Auto) 0.8 H Eos # (Auto) 0.7 H Baso # (Auto) 0.1 Abs Immat Gran (auto) 0.04 H Absolute Neuts (auto) 5.6 Absolute Nucleated RBC 0.000 Nucleated RBC % 0.0 Puncture Site ABG pH ABG pCO2 ABG pO2 ABG PO2/FiO2 Ratio ABG HCO3 ABG O2 Saturation ABG O2 Content ABG Base Excess A-a Gradient Oxyhemoglobin Total Hemoglobin O2 Delivery Device O2 Liters/Min FiO2 Sodium 138 Potassium 4.0 Chloride 97 L Carbon Dioxide 27 Anion Gap 14 H BUN 68 H Creatinine 3.30 H Estim Creat Clear Calc 20 Estimated GFR 14 L Glucose 235 H POC Capillary Glucose 247 H 256 H Lactic Acid Calcium 11.8 H Magnesium 2.4 H Total Bilirubin 0.4 AST 18 ALT 12 Alkaline Phosphatase 111 Ammonia Total Protein 8.0 Albumin 3.8 08/27/24 08:00 WBC RBC Hgb Hct MCV MCH MCHC RDW Plt Count MPV Immature Gran % (Auto) Neut % (Auto) Lymph % (Auto) [place] % (Auto) Eos % (Auto) Baso % (Auto) Lymph # (Auto) [place] # (Auto) Eos # (Auto) Baso # (Auto) Abs Immat Gran (auto) Absolute Neuts (auto) Absolute Nucleated RBC Nucleated RBC % Puncture Site ABG pH ABG pCO2 ABG pO2 ABG PO2/FiO2 Ratio ABG HCO3 ABG O2 Saturation ABG O2 Content ABG Base Excess A-a Gradient Oxyhemoglobin Total Hemoglobin O2 Delivery Device O2 Liters/Min FiO2 Sodium Potassium Chloride Carbon Dioxide Anion Gap BUN Creatinine Estim Creat Clear Calc Estimated GFR Glucose POC Capillary Glucose 257 H Lactic Acid Calcium Magnesium Total Bilirubin AST ALT Alkaline Phosphatase Ammonia Total Protein Albumin
[2024-08-27 10:18] LABS: Methylmalonic Acid 557 nmol/L (69-390)
--- NOTE | 2024-08-27 11:16 | PM.PNNEP ---
Subjective Date/time seen: 08/27/24 11:16 Objective Data Vital Signs Vital Signs: Vital Signs Temp Pulse Resp BP Pulse Ox O2 Del Method O2 Flow Rate 08/27/24 09:20 98 Nasal Cannula 3 08/27/24 09:18 104 H 08/27/24 05:33 98.6 F 103 H 18 142/83 H 100 08/27/24 02:48 95 20 08/27/24 02:38 95 20 08/26/24 20:00 96 Nasal Cannula 3 08/26/24 20:57 98.2 F 93 18 139/68 94 08/26/24 19:50 95 20 08/26/24 19:42 94 20 08/26/24 19:42 94 Nasal Cannula 3 08/26/24 14:30 97.0 F L 104 H 16 126/67 94 Intake/Output Intake/Output: Intake & Output 08/25/24 08/26/24 08/26/24 08/27/24 00:59 00:59 23:59 23:59 Intake Total 600 Output Total 450 Balance 150 Meds/Results Medications: Active Medications Generic Name Dose Route Start Last Admin Trade Name Freq PRN Reason Stop Dose Admin Acetaminophen 650 mg 08/17/24 16:39 08/27/24 12:51 Acetaminophen 325 Mg Tablet PO 650 mg Q4H PRN Administration Mild Pain (1-3) or Fever Hydrocodone Bitart/Acetaminophen 1 tab 08/18/24 14:16 08/18/24 21:39 Hydrocodone/Acetaminophen (*Crx) 5-325 Mg Tablet PO 1 tab Q4H PRN Administration Pain Rated 4-6 Albuterol/Ipratropium 3 ml 08/17/24 20:00 08/27/24 08:32 Ipratropium 0.5 Mg/Albuterol Sulfate 2.5 Mg Ampul.Neb 3 Ml INHALATION Not Given Q6HRT KAELA Allopurinol 300 mg 08/18/24 09:00 08/22/24 09:58 Allopurinol 300 Mg Tablet PO 300 mg DAILY KAELA Administration Amitriptyline HCl 10 mg 08/17/24 21:00 08/24/24 21:24 Amitriptyline Hcl 10 Mg Tablet PO 10 mg QHS KAELA Administration Aspirin 81 mg 08/18/24 09:00 08/27/24 09:16 Aspirin 81 Mg Enteric Tablet PO 81 mg QAM KA[facility]A Administration Atorvastatin Calcium 10 mg 08/17/24 21:00 08/26/24 20:35 Atorvastatin 10 Mg Tablet PO 10 mg HS [facility]A Administration Benzonatate 100 mg 08/17/24 20:42 08/26/24 10:07 Benzonatate 100 Mg Capsule PO 100 mg TID PRN Administration Cough Cyanocobalamin 1,000 mcg 08/27/24 12:35 08/27/24 12:50 Cyanocobalamin Inj 1,000 Mcg/Ml Vial IM 1,000 mcg DAILY KAELA Administration Dextrose 12.5 gm 08/17/24 17:18 Dextrose 50% 25 Gm/50 Ml Syringe IV PUSH PRN PRN Hypoglycemia Protocol Empagliflozin 10 mg 08/24/24 09:00 08/27/24 09:16 Empagliflozin 10 Mg Tablet BY MOUTH 10 mg DAILY [facility]A Administration Enoxaparin Sodium 40 mg 08/23/24 09:00 08/27/24 09:17 Enoxaparin 40 Mg/0.4 Ml Syringe SUB-Q 40 mg DAILY [facility]A Administration Escitalopram Oxalate 20 mg 08/18/24 09:00 08/27/24 09:16 Escitalopram Oxalate 10 Mg Tablet PO 20 mg DAILY KA[facility]A Administration Fluticasone Propionate 2 spray 08/18/24 09:00 08/27/24 09:19 Fluticasone Propionate 0.05% Na Spr 16 Gm Btl (*Bkc) NASAL 2 spray DAILY [facility]A Administration Furosemide 40 mg 08/18/24 09:00 Furosemide Inj 40 Mg/4 Ml Vial IV PUSH BID KA[facility]A Furosemide 80 mg 08/23/24 15:00 08/27/24 09:15 Furosemide 80 Mg Tablet PO Not Given BID@0800,1400 [facility] Gabapentin 300 mg 08/17/24 21:00 08/21/24 20:30 Gabapentin 300 Mg Capsule PO 300 mg QHS KA[facility]A Administration Glucagon 1 mg 08/17/24 17:18 Glucagon For Inj 1 Mg Vial IM PRN PRN Hypoglycemia Protocol Glucose 15 gm 08/17/24 17:18 Glucose Oral Gel 15 Gm Of Glucse In 37.5 Gm Tube PO PRN PRN Hypoglycemia Protocol Dextrose 1,000 mls @ 100 mls/hr 08/17/24 17:18 Dextrose 5% 1,000 Ml IVPB PRN PRN Hypoglycemia Protocol Sodium Chloride 1,000 mls @ 75 mls/hr 08/27/24 09:50 08/27/24 12:36 Normal Saline Iv IV CONT 75 mls/hr .[id number] [facility]A Administration Insulin Aspart 2 - 4 units 08/17/24 21:00 08/26/24 20:36 Insulin Aspart (*Bkc) 100 Units/Ml SUB-Q 2 units HS [facility]A Administration Protocol Insulin Aspart 2 - 5 units 08/24/24 17:00 08/27/24 12:36 Insulin Aspart (*Bkc) 100 Units/Ml SUB-Q 4 units TIDWM KA[facility]A Administration Protocol Insulin Aspart 15 units 08/26/24 12:00 08/27/24 12:36 Insulin Aspart (*Bkc) 100 Units/Ml SUB-Q 15 units TIDWM KA[facility]A Administration Insulin Glargine 45 units 08/26/24 21:00 08/26/24 20:36 Insulin Glargine (*Bkc) 100 Units/Ml SUB-Q 45 units HS [facility]A Administration Levothyroxine Sodium 50 mcg 08/18/24 06:30 08/27/24 06:13 Levothyroxine Sodium 50 Mcg Tablet PO Not Given DAILY@0630 [facility] Metoprolol Succinate 25 mg 08/21/24 09:00 08/27/24 09:18 Metoprolol Succinate Ext Rel 25 Mg Tabcr PO 25 mg QAM KAELA Administration Ondansetron HCl 4 mg 08/17/24 17:17 Ondansetron Inj 4 Mg/2 Ml Vial IV PUSH Q6H PRN Nausea And Vomiting Pantoprazole Sodium 40 mg 08/18/24 09:00 08/27/24 09:16 Pantoprazole 40 Mg Tablet PO 40 mg QAM KAELA Administration Sodium Chloride 2 spray 08/17/24 20:42 08/27/24 09:18 Saline 0.65% Sha Soln 44 Ml Btl NASAL 2 spray QID PRN Administration nasal congestion/dryness Radiology Results: ITS Impressions Shoulder X-Ray 08/18/24 15:56 IMPRESSION: Osteopenia Head CT 08/20/24 09:56 IMPRESSION: 1. Stable moderate nonspecific cerebral white matter disease, which likely represents chronic small vessel ischemic disease. Pulmonary Perfusion Imaging 08/20/24 12:15 IMPRESSION: 1. Low probability for pulmonary embolism. Brain MRI 08/22/24 16:06 IMPRESSION: 1. Moderate nonspecific cerebral white matter disease and pontine disease, which likely represents chronic small vessel ischemic disease, stable from 05/26/2022. Chest X-Ray 08/22/24 18:38 IMPRESSION: Moderate interstitial edema. Subsegmental bibasilar atelectasis/consolidation. Possible small bilateral effusions. Hand X-Ray 08/23/24 15:26 IMPRESSION: Possible fracture in the distal radius. Clinical correlation and proper images are advised. Slight narrowing of the proximal and distal interphalangeal joints. Forearm X-Ray 08/24/24 11:01 IMPRESSION: 1. No fracture identified. 2. Loose bodies in the radiocarpal compartment. Modified Barium Swallow 08/24/24 14:17 IMPRESSION: Minimal pharyngeal dysphagia with trace shallow laryngeal penetration without aspiration. Please correlate with speech pathologist findings and specific feeding recommendations. Chest/Abdomen/Pelvis CT 08/27/24 09:37 IMPRESSION: 1. Mild atelectasis in the lungs. Labs Labs: Laboratory Tests 08/27/24 05:22 08/27/24 05:22 Calcium 11.8 H Magnesium 2.4 H Total Bilirubin 0.4 AST 18 ALT 12 Alkaline Phosphatase 111 Total Protein 8.0 Albumin 3.8
[2024-08-27 11:43] LABS: Glucose Point of Care 319 mg/dl (65-105)
[2024-08-27] MEDS: SODIUM CHLORIDE 0.9% IV 1,000 ML 75 ML IV CONT (12:36)
[2024-08-27] MEDS: CYANOCOBALAMIN INJ 1,000 MCG/ML VIAL 1000 MCG IM (12:50)
[2024-08-27 14:22] LABS: Prothrombin Time 13.6 Seconds (11.1-14.7)
[2024-08-27 14:23] LABS: Partial Thromboplastin Time 26.1 Seconds (22.3-36.8)
--- NOTE | 2024-08-27 15:48 | WPDNEURCNPN ---
Assessment and Plan Assessment and plan (1) Change in mental status: Code(s): R41.82 - Altered mental status, unspecified Status: Acute Assessment and Plan: The change in mental status is not well explained although she does kidney problems and diabetes congestive cardiac failure having had a fall with right rib fracture. She saw me in my office 07/03/2024 and from my notes he does not appear that she has any issues with regard to the memory. There diagnosis of the encephalitis should be considered. I would suggest a spinal tap with further workup for viral encephalitis and is available in NMDA ecephalitis and ATN profile for beta 40/42 ratio. (2) Chronic kidney disease, unspecified: Code(s): N18.9 - Chronic kidney disease, unspecified Status: Acute (3) Obstructive sleep apnea on CPAP: Code(s): G47.33 - Obstructive sleep apnea (adult) (pediatric); Z99.89 - Dependence on other enabling machines and devices Status: Chronic (4) Type 2 diabetes mellitus with diabetic nephropathy: Qualifiers: Diabetes mellitus shelter insulin use: with shelter use Qualified Code(s): E11.21 - Type 2 diabetes mellitus with diabetic nephropathy; Z79.4 - [facility] (current) use of insulin Code(s): E11.21 - Type 2 diabetes mellitus with diabetic nephropathy Status: Acute (5) Radial styloid fracture: Qualifiers: Encounter type: initial encounter Fracture type: closed Fracture alignment: nondisplaced Laterality: right Qualified Code(s): S52.514A - Nondisplaced fracture of right radial styloid process, initial encounter for closed fracture Code(s): S52.513A - Displaced fracture of unspecified radial styloid process, initial encounter for closed fracture Status: Acute Plan spinal tap analysis a spinal fluid examination as discussed above. EEG was performed which shows moderate diffuse background slowing which is once again suggestive of bihemispheric organic lesion. Course this is a nonspecific finding and can be seen with a metabolic encephalopathy. Regard to follow-up the results. Consult date: 08/27/24 HPI: Beto Bryan is a 73 year old female referred for neurological evaluation on account of a change in mental status. She has been seen by me in the past with regards to headache. In fact he saw me on 07/03/2000 for follow-up evaluation. She has history of migraine twice a month or so. She has been seen at Neurology practice for some time. She was admitted to the hospital with change in mental status. MRI of the brain was performed which shows some white matter changes. She has history of diabetes mellitus and hemoglobin A1c was 8.4. Suspected of 6 congestive cardiac failure however ejection fraction is 65%. She now also has chronic kidney disease and the creatinine over 3.0. She came with a right wrist fracture. She is not able to give me any history on account of her mental status. Family members are not present at the time when I saw her. She is unable to tell me her current address or but knows her age. She is unable to tell me name of all her children but gave me them name of 1 of the daughters. The concern is significant change in mental status unexplained by the testing done so far. Review of Systems Review of Systems: ROS unobtainable: Yes unobtainable due to medical condition PMFSH Past Medical History Medical History (Updated 08/27/24 @ 15:54 by Yoel Mack MD) BRADY (acute kidney injury) Anemia Aortic aneurysm Asthma Carpal tunnel syndrome on both sides Cephalgia Change in bowel habits Change in mental status CHF (congestive heart failure), NYHA class I Chronic kidney disease, stage 4 (severe) Chronic respiratory failure with hypoxia, on home oxygen therapy COPD (chronic obstructive pulmonary disease) Decubitus skin ulcer Deep venous thrombosis Diabetic neuropathy Diabetic polyneuropathy Dysphagia Gout Hypercalcemia Hyperkalemia Hyperlipidemia Hyperparathyroidism Hypertension Hyponatremia Hypothyroidism Neuropathy Obstructive sleep apnea on CPAP Osteoarthritis of facet joint of lumbar spine Pulmonary embolism Thoracic aortic aneurysm, without rupture Thyroid nodule Type 2 diabetes mellitus with hyperglycemia Surgical History Surgical History History of appendectomy History of cardiac catheterization History of cholecystectomy History of hysterectomy Hx of cataract removal with insertion of prosthetic lens Family History Family History Mother Diabetes mellitus Family history of bipolar disorder Hypertension Father Family history of cardiovascular disease Cerebrovascular accident Family history of emphysema Other Family history of anemia Family history of congestive heart failure Family history of obesity Social History Social History Social History: Surrogate decision maker: Beverly Sandra, daughter. The patient also has a son. She is . 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 She is a lifelong nonsmoker. She does not use any alcohol or illicit drugs. Code status: Full code. Smoking status: Never smoker Second hand tobacco smoke exposure: No Alcohol intake: current Drinks per week: 1 Substance use: never Substance use type: does not use Do You Feel Safe in your Home?: Yes Lack of Transportation: No Lack of Food: Never True Current Housing: I Have Housing Concerned About Future Housing: No Difficulty Paying Gas/Electric Bills: No Difficulty Paying for Meds: No Currently Unemployed: No Education: Decline to Answer Difficulty w/ Childcare or Family Care: No Living arrangements: assisted living Additional living arrangements comments: Assisted living at [facility]. Gender identity (if verbalized by the patient): Female Spiritual care concerns: No Meds Home Medications and Allergies Home Medications Medication Instructions Recorded Confirmed Type magnesium oxide 400 mg PO DAILY 11/15/19 08/17/24 History allopurinol 300 mg tablet 300 mg PO DAILY 03/17/21 08/17/24 History atorvastatin 10 mg tablet 10 mg PO HS 05/27/21 08/17/24 History aspirin 81 mg capsule 81 mg PO DAILY 08/31/21 08/17/24 History fluticasone furoate 100 1 inh inhalation DAILY 12/29/21 08/17/24 History mcg-vilanterol 25 mcg/dose inhalation powder (Breo Ellipta) omega-3 fatty acids 1,000 mg PO DAILY 12/29/21 08/17/24 History escitalopram oxalate 20 mg tablet 20 mg PO DAILY #90 tabs 01/21/22 08/17/24 Rx (Lexapro) cholecalciferol (vitamin D3) 50 50 mcg PO DAILY 05/25/22 08/17/24 History mcg (2,000 unit) tablet guanfacine 2 mg tablet 2 mg PO HS 07/13/22 08/17/24 History pantoprazole 40 mg tablet,delayed 40 mg PO QAM 1 month #30 tabs 11/16/22 08/17/24 Rx release flash glucose sensor (FreeStyle #6 ea 06/29/23 08/17/24 Rx Jeffrey 2 Sensor kit) levothyroxine 50 mcg tablet 50 mcg PO DAILY #90 tabs 06/29/23 08/17/24 Rx cetirizine 10 mg tablet 10 mg PO DAILY PRN allergy 07/04/23 08/17/24 Rx symptoms #90 tabs dapagliflozin propanediol 10 mg 10 mg PO DAILY #90 tabs 01/05/24 08/17/24 Rx tablet (Farxiga) miconazole nitrate 2 % topical 1 applic topical BID #85 grams 01/10/24 08/17/24 Rx powder (Miconazorb AF) fluticasone propionate 50 2 spray intranasal DAILY #16 grams 01/17/24 08/17/24 Rx mcg/actuation nasal spray,suspension pen needle, diabetic 30 gauge x 01/24/24 08/17/24 History 1/3 fexofenadine 180 mg tablet 180 mg PO DAILY 02/08/24 08/17/24 History pen needle, diabetic, safety 30 #100 ea 03/13/24 08/17/24 Rx gauge x 1/3 (Novofine Autocover) amitriptyline 10 mg tablet 10 mg PO QHS 1 month #30 tabs 03/21/24 08/17/24 Rx albuterol sulfate 90 mcg/actuation 2 puff inhalation Q4H PRN 03/28/24 08/17/24 Rx aerosol inhaler (Ventolin HFA) shortness of breath or wheezing #8.5 grams albuterol sulfate 2.5 mg/0.5 mL 2.5 mg (0.5 mL) inhalation Q20M 05/09/24 08/17/24 Rx solution for nebulization PRN shortness of breath or wheezing #30 ea gabapentin 300 mg capsule 300 mg PO QHS #90 caps 05/09/24 08/17/24 Rx acetaminophen 325 mg tablet 650 mg PO BID 08/17/24 08/17/24 History acetaminophen 500 mg tablet 500 mg PO Q6H PRN mild pain or 08/17/24 08/17/24 History fever atogepant 10 mg tablet (Qulipta) 10 mg PO DAILY 08/17/24 08/17/24 History benzonatate 100 mg capsule 100 mg PO TID PRN Cough 08/17/24 08/17/24 History zlhtsnhwpn-iusxpnpxszufc-emqwgzua 2 cap PO DAILY PRN Pain 08/17/24 08/17/24 History 50 mg-300 mg-40 mg capsule (Fioricet) carvedilol 25 mg tablet 25 mg PO BIDWM 08/17/24 08/17/24 History furosemide 80 mg tablet See Rx Instructions .Route .COMPLEX 08/17/24 08/17/24 History insulin glargine 100 unit/mL (3 45 unit subcut QAM 08/17/24 08/17/24 History mL) subcutaneous pen (Basaglar KwikPen U-100 Insulin) insulin lispro 100 unit/mL 12 unit subcut QACBREAK E11.65 - 08/17/24 08/17/24 History subcutaneous pen (Humalog KwikPen Type 2 diabetes mellitus with (U-100) Insulin) hyperglycem insulin lispro 100 unit/mL See Rx Instructions .Route .COMPLEX 08/17/24 08/17/24 History subcutaneous pen (Humalog KwikPen (U-100) Insulin) insulin lispro 100 unit/mL See Rx Instructions .Route .COMPLEX 08/17/24 08/17/24 History subcutaneous pen (Humalog KwikPen (U-100) Insulin) sodium chloride 0.65 % nasal spray 2 spray intranasal QID PRN nasal 08/17/24 08/17/24 History aerosol (Deep Sea Nasal) congestion/dryness Allergies Allergy/AdvReac Type Severity Reaction Status Date / Time No Known Allergies Allergy Verified 08/17/24 22:00 Vital Signs Vital Signs - 24 hr 08/26/24 19:42 08/26/24 19:42 08/26/24 19:50 Temperature Pulse Rate 94 95 Respiratory Rate 20 20 Blood Pressure Pulse Oximetry 94 Oxygen Delivery Nasal Cannula Oxygen Flow Rate 3 08/26/24 20:57 08/26/24 20:00 08/27/24 02:38 Temperature 98.2 F Pulse Rate 93 95 Respiratory Rate 18 20 Blood Pressure 139/68 Pulse Oximetry 94 96 Oxygen Delivery Nasal Cannula Oxygen Flow Rate 3 08/27/24 02:48 08/27/24 05:33 08/27/24 09:18 Temperature 98.6 F Pulse Rate 95 103 H 104 H Respiratory Rate 20 18 Blood Pressure 142/83 H Pulse Oximetry 100 Oxygen Delivery Oxygen Flow Rate 08/27/24 09:20 08/27/24 13:41 08/27/24 13:41 Temperature Pulse Rate 100 Respiratory Rate 20 Blood Pressure Pulse Oximetry 98 92 Oxygen Delivery Nasal Cannula Nasal Cannula Oxygen Flow Rate 3 3 08/27/24 13:53 08/27/24 14:00 08/27/24 15:00 Temperature 97.0 F L Pulse Rate 102 H 105 H 101 H Respiratory Rate 24 H 16 18 Blood Pressure 138/72 142/84 H Pulse Oximetry 93 97 Oxygen Delivery Oxygen Flow Rate 08/27/24 15:28 Temperature Pulse Rate 98 Respiratory Rate 19 Blood Pressure 147/88 H Pulse Oximetry 98 Oxygen Delivery Oxygen Flow Rate Exam Narrative: Patient is fully conscious alert does seem to understand given commands and able to follow 2 step commands. She does seem to try but is unable to. No evidence of external injuries to the head and neck. No nuchal rigidity. No carotid bruit. Heart sounds were normal. No murmur. Cranial nerves unable to evaluate her current visual rosales by confrontation. No apparent facial asymmetry. Tongue was midline. Motor system moving both upper and lower limbs in fact she is rocking her both feet but independently. Unable to perform manual motor testing reliably. Since a young child could not reliably performed. Deep tendon reflexes did not show any significant asymmetry. Plantars were downgoing. No significant cogwheeling. Resp: Effort & Inspection: normal respiratory effort Skin: General skin exam: normal color Results Labs 08/27/24 05:22 08/27/24 05:22 Labs: Short CBC 08/27/24 Range/Units 05:22 WBC 9.4 (4.5-10.0) K/mm3 Hgb 12.4 (12.0-15.0) g/dL Hct 41.1 (37.0-47.0) % Plt Count 320 (150-375) k/mm3 BMP 08/27/24 05:22 Sodium 138 Potassium 4.0 Chloride 97 L Carbon Dioxide 27 BUN 68 H Creatinine 3.30 H Glucose 235 H Calcium 11.8 H Liver Function 08/27/24 Range/Units 05:22 Total Bilirubin 0.4 (0.2-1.3) mg/dL AST 18 (14-36) U/L ALT 12 (6-35) U/L Alkaline Phosphatase 111 (38-126) U/L Albumin 3.8 (3.5-5.1) g/dL
[2024-08-27 15:55] LABS: Glucose CSF 136 mg/dL (40-70); Total Protein CSF 102 mg/dL (12-60)
[2024-08-27 15:58] LABS: Appearance CSF Clear (Clear); CSF source CSF
[2024-08-27 15:59] LABS: Color CSF Colorless (Colorless)
[2024-08-27 16:11] LABS: Nucleated Cell CSF 2 /uL (0-5)
[2024-08-27 16:12] LABS: Red Blood Cell CSF 9 (0-2)
[2024-08-27 16:18] LABS: Lymphocytes CSF 70 % (40-80); Monocytes CSF 30 % (15-45); Neutrophils CSF 0 % (0-6)
[2024-08-27 16:56] LABS: Glucose Point of Care 237 mg/dl (65-105)
--- NOTE | 2024-08-27 16:59 | PC.NURSE ---
At 1641 lab called to report CSF gram stain results of few WBC and no organisms seen. Result not critical. Relayed this information to Dr. Manuel at 1659.
[2024-08-27] MEDS: DEXTROSE 5% IVPB (17:35)
[2024-08-27] MEDS: WATER IVPB (17:35)
[2024-08-27] MEDS: ACYCLOVIR SODIUM IVPB (17:35)
--- NOTE | 2024-08-27 19:06 | WPDNEUROLOGY ---
Neurology EEG Report General Information Date of Study: 08/24/24 TEST Electroencephalography DIAGNOSIS altered mental status CONDITION OF RECORDING bedside recording EEG NUMBER [id number] CLINICAL HISTORY altered mental status , patient staring blankly EEG DESCRIPTION During wakefulness the background activity consists of posterior dominant rhythm in theta range at approximately 6 hertz with an amplitude of 15-30 microvolts which appears mildly formed. Anteriorly predominant theta and delta activity were seen. Occasional muscle and blink artifacts were seen. Intermittent with frontal rhythmic delta activity also noted. Patient did not progress to stage I or 2 sleep. Hyperventilation or photic stimulation were not performed. IMPRESSION This is an abnormal EEG due to presence of diffuse background slowing suggestive of generalized encephalopathy Such as may be seen with bihemispheric lesions or metabolic encephalopathy. however no focal or paroxysmal epileptiform abnormalities were seen. Clinical correlation is recommended.
[2024-08-27 19:40] LABS: Glucose Point of Care 276 mg/dl (65-105)
[2024-08-27] MEDS: ATORVASTATIN 10 MG TABLET PO (19:41)
[2024-08-27] MEDS: INSULIN GLARGINE (*BKC) 100 UNITS/ML 45 UNITS SUB-Q (19:42)
[2024-08-28] VITALS (14 sets, daily range): BP systolic 128–151; BP diastolic 55–67; PULSE 102–114; RESP 18–20; TEMP 36.4–36.5; O2SAT 91–95
[2024-08-28] MEDS: IPRATROPIUM 0.5 MG/ALBUTEROL SULFATE 2.5 MG AMPUL.NEB 3 ML INHALATION ×4 (01:45→20:02)
[2024-08-28] MEDS: LEVOTHYROXINE SODIUM 50 MCG TABLET PO (05:08)
[2024-08-28] MEDS: SODIUM CHLORIDE 0.9% IV 1,000 ML 75 ML IV CONT ×2 (05:08→20:37)
[2024-08-28 05:50] LABS: Basophils Absolute Auto 0.1 K/mm3 (0.0-0.1); Basophils Percent Auto 0.8 % (0.2-1.2); Eosinophils Absolute Auto 0.5 K/mm3 (0-0.3); Eosinophils Percent Auto 6.1 % (0-4.4); Hematocrit 38.7 % (37.0-47.0); Hemoglobin 12.2 g/dL (12.0-15.0); Immature Granulocyte Absolute 0.03 K/mm3 (0.00-0.031); Immature Granulocyte Percent A 0.4 % (0-0.5); Lymphocytes Absolute Auto 2.12 K/mm3 (0.9-3.2); Lymphocytes Percent Auto 26.5 % (18.3-44.2); Mean Corpuscular HGB Conc 31.5 g/dl (32-36); Mean Corpuscular Hemoglobin 30.2 pg (26-34); Mean Corpuscular Volume 95.8 fl (80-100); Mean Platelet Volume 10.1 fl (7.4-10.4); Monocytes Absolute Auto 0.8 K/mm3 (0.1-0.6); Monocytes Percent Auto 9.6 % (2.6-8.5); Neutrophils Absolute Auto 4.5 K/mm3 (1.3-6.7); Neutrophils Percent Auto 56.6 % (45.5-73.1); Platelet Count Result 330 k/mm3 (150-375); Red Blood Count 4.04 M/mm3 (4.2-5.4); Red Cell Distribution Width 16.2 % (11.5-14.5)
[2024-08-28 06:00] LABS: Alanine Aminotransferase 11 U/L (6-35); Albumin Level 3.7 g/dL (3.5-5.1); Alkaline Phosphatase 106 U/L (38-126); Anion Gap 12 mmol/L (4-12); Aspartate Amino Transferase 18 U/L (14-36); Bilirubin,Total 0.5 mg/dL (0.2-1.3); Blood Urea Nitrogen 65 mg/dL (7-17); Calcium 11.3 mg/dL (8.4-10.2); Carbon Dioxide 26 mmol/L (22-30); Chloride 97 mmol/L (98-107); Estimated CRCL calculation 20 ml/min; Estimated Glomerular Filt Rate 14; Glucose 200 mg/dL (65-110); Magnesium 2.3 mg/dL (1.6-2.3); Potassium 3.7 mmol/L (3.4-5.0); Sodium 135 mmol/L (137-145)
[2024-08-28 08:14] LABS: Glucose Point of Care 214 mg/dl (65-105)
[2024-08-28] MEDS: INSULIN ASPART (*BKC) 100 UNITS/ML SUB-Q ×3 (08:53→17:23)
[2024-08-28] MEDS: INSULIN ASPART (*BKC) 100 UNITS/ML 15 UNITS SUB-Q ×3 (08:54→17:24)
[2024-08-28] MEDS: ESCITALOPRAM OXALATE 10 MG TABLET 20 MG PO (08:55)
[2024-08-28] MEDS: EMPAGLIFLOZIN 10 MG TABLET BY MOUTH (08:55)
[2024-08-28] MEDS: ASPIRIN 81 MG ENTERIC TABLET PO (08:55)
[2024-08-28] MEDS: PANTOPRAZOLE 40 MG TABLET PO (08:55)
[2024-08-28] MEDS: CYANOCOBALAMIN INJ 1,000 MCG/ML VIAL 1000 MCG IM (08:56)
[2024-08-28] MEDS: FLUTICASONE PROPIONATE 0.05% NA SPR 16 GM BTL (*BKC) 2 SPRAY NASAL (08:56)
[2024-08-28] MEDS: METOPROLOL SUCCINATE EXT REL 25 MG TABCR PO (08:57)
[2024-08-28] MEDS: ENOXAPARIN 40 MG/0.4 ML SYRINGE SUB-Q (08:57)
[2024-08-28] MEDS: ACETAMINOPHEN 325 MG TABLET 650 MG PO ×2 (09:04→13:47)
--- NOTE | 2024-08-28 11:29 | PM.PNNEP ---
Subjective Date/time seen: 08/28/24 11:29 Objective Data Vital Signs Vital Signs: Vital Signs Temp Pulse Resp BP Pulse Ox O2 Del Method O2 Flow Rate 08/28/24 10:32 102 H 20 08/28/24 08:55 95 Nasal Cannula 3 08/28/24 08:57 114 H 08/28/24 08:34 111 H 20 08/28/24 08:34 93 Nasal Cannula 3 08/28/24 08:45 112 H 20 08/28/24 06:00 97.6 F 111 H 18 143/67 H 92 08/28/24 01:53 105 H 20 08/28/24 01:46 102 H 20 08/27/24 21:32 97.4 F L 99 18 116/63 92 08/27/24 21:31 107 H 20 08/27/24 21:26 107 H 20 08/27/24 21:26 107 H 94 Nasal Cannula 3 08/27/24 20:00 97 Nasal Cannula 3 Intake/Output Intake/Output: Intake & Output 08/26/24 08/26/24 08/27/24 08/28/24 00:59 23:59 23:59 23:59 Intake Total 1597.5 1860 Output Total 950 600 Balance 647.5 1260 Meds/Results Medications: Active Medications Generic Name Dose Route Start Last Admin Trade Name Freq PRN Reason Stop Dose Admin Acetaminophen 650 mg 08/17/24 16:39 08/28/24 13:47 Acetaminophen 325 Mg Tablet PO 650 mg Q4H PRN Administration Mild Pain (1-3) or Fever Hydrocodone Bitart/Acetaminophen 1 tab 08/18/24 14:16 08/18/24 21:39 Hydrocodone/Acetaminophen (*Crx) 5-325 Mg Tablet PO 1 tab Q4H PRN Administration Pain Rated 4-6 Albuterol/Ipratropium 3 ml 08/17/24 20:00 08/28/24 13:32 Ipratropium 0.5 Mg/Albuterol Sulfate 2.5 Mg Ampul.Neb 3 Ml INHALATION 3 ml Q6HRT KAELA Administration Allopurinol 300 mg 08/18/24 09:00 08/22/24 09:58 Allopurinol 300 Mg Tablet PO 300 mg DAILY KAELA Administration Amitriptyline HCl 10 mg 08/17/24 21:00 08/24/24 21:24 Amitriptyline Hcl 10 Mg Tablet PO 10 mg QHS KAELA Administration Aspirin 81 mg 08/18/24 09:00 08/28/24 08:55 Aspirin 81 Mg Enteric Tablet PO 81 mg QAM KAELA Administration Atorvastatin Calcium 10 mg 08/17/24 21:00 08/27/24 19:41 Atorvastatin 10 Mg Tablet PO 10 mg HS KAELA Administration Benzonatate 100 mg 08/17/24 20:42 08/26/24 10:07 Benzonatate 100 Mg Capsule PO 100 mg TID PRN Administration Cough Cyanocobalamin 1,000 mcg 08/27/24 12:35 08/28/24 08:56 Cyanocobalamin Inj 1,000 Mcg/Ml Vial IM 1,000 mcg DAILY KAELA Administration Dextrose 12.5 gm 08/17/24 17:18 Dextrose 50% 25 Gm/50 Ml Syringe IV PUSH PRN PRN Hypoglycemia Protocol Empagliflozin 10 mg 08/24/24 09:00 08/28/24 08:55 Empagliflozin 10 Mg Tablet BY MOUTH 10 mg DAILY KAELA Administration Enoxaparin Sodium 40 mg 08/23/24 09:00 08/28/24 08:57 Enoxaparin 40 Mg/0.4 Ml Syringe SUB-Q 40 mg DAILY KAELA Administration Escitalopram Oxalate 20 mg 08/18/24 09:00 08/28/24 08:55 Escitalopram Oxalate 10 Mg Tablet PO 20 mg DAILY KAELA Administration Fluticasone Propionate 2 spray 08/18/24 09:00 08/28/24 08:56 Fluticasone Propionate 0.05% Na Spr 16 Gm Btl (*Bkc) NASAL 2 spray DAILY KAELA Administration Furosemide 40 mg 08/18/24 09:00 Furosemide Inj 40 Mg/4 Ml Vial IV PUSH BID KAELA Furosemide 80 mg 08/23/24 15:00 08/27/24 09:15 Furosemide 80 Mg Tablet PO Not Given BID@0800,1400 KAELA Gabapentin 300 mg 08/17/24 21:00 08/21/24 20:30 Gabapentin 300 Mg Capsule PO 300 mg QHS KAELA Administration Glucagon 1 mg 08/17/24 17:18 Glucagon For Inj 1 Mg Vial IM PRN PRN Hypoglycemia Protocol Glucose 15 gm 08/17/24 17:18 Glucose Oral Gel 15 Gm Of Glucse In 37.5 Gm Tube PO PRN PRN Hypoglycemia Protocol Dextrose 1,000 mls @ 100 mls/hr 08/17/24 17:18 Dextrose 5% 1,000 Ml IVPB PRN PRN Hypoglycemia Protocol Sodium Chloride 1,000 mls @ 75 mls/hr 08/27/24 09:50 08/28/24 13:48 Normal Saline Iv IV CONT Not Given .[id number] KAELA Acyclovir Sodium 1,375 mg/ 277.5 mls @ 250 mls/hr 08/27/24 17:00 08/27/24 18:42 Dextrose IVPB Infused Q24H KAELA Infusion Insulin Aspart 2 - 4 units 08/17/24 21:00 08/27/24 19:42 Insulin Aspart (*Bkc) 100 Units/Ml SUB-Q 2 units HS KAELA Administration Protocol Insulin Aspart 2 - 5 units 08/24/24 17:00 08/28/24 12:08 Insulin Aspart (*Bkc) 100 Units/Ml SUB-Q 5 units TIDWM KAELA Administration Protocol Insulin Aspart 15 units 08/26/24 12:00 08/28/24 12:08 Insulin Aspart (*Bkc) 100 Units/Ml SUB-Q 15 units TIDWM KAELA Administration Insulin Glargine 45 units 08/26/24 21:00 08/27/24 19:42 Insulin Glargine (*Bkc) 100 Units/Ml SUB-Q 45 units HS KAELA Administration Levothyroxine Sodium 50 mcg 08/18/24 06:30 08/28/24 05:08 Levothyroxine Sodium 50 Mcg Tablet PO 50 mcg DAILY@0630 KAELA Administration Metoprolol Succinate 25 mg 08/21/24 09:00 08/28/24 08:57 Metoprolol Succinate Ext Rel 25 Mg Tabcr PO 25 mg QAM KAELA Administration Ondansetron HCl 4 mg 08/17/24 17:17 Ondansetron Inj 4 Mg/2 Ml Vial IV PUSH Q6H PRN Nausea And Vomiting Pantoprazole Sodium 40 mg 08/18/24 09:00 08/28/24 08:55 Pantoprazole 40 Mg Tablet PO 40 mg QAM KAELA Administration Sodium Chloride 2 spray 08/17/24 20:42 08/27/24 09:18 Saline 0.65% Sha Soln 44 Ml Btl NASAL 2 spray QID PRN Administration nasal congestion/dryness Radiology Results: ITS Impressions Shoulder X-Ray 08/18/24 15:56 IMPRESSION: Osteopenia Head CT 08/20/24 09:56 IMPRESSION: 1. Stable moderate nonspecific cerebral white matter disease, which likely represents chronic small vessel ischemic disease. Pulmonary Perfusion Imaging 08/20/24 12:15 IMPRESSION: 1. Low probability for pulmonary embolism. Brain MRI 08/22/24 16:06 IMPRESSION: 1. Moderate nonspecific cerebral white matter disease and pontine disease, which likely represents chronic small vessel ischemic disease, stable from 05/26/2022. Chest X-Ray 08/22/24 18:38 IMPRESSION: Moderate interstitial edema. Subsegmental bibasilar atelectasis/consolidation. Possible small bilateral effusions. Hand X-Ray 08/23/24 15:26 IMPRESSION: Possible fracture in the distal radius. Clinical correlation and proper images are advised. Slight narrowing of the proximal and distal interphalangeal joints. Forearm X-Ray 08/24/24 11:01 IMPRESSION: 1. No fracture identified. 2. Loose bodies in the radiocarpal compartment. Modified Barium Swallow 08/24/24 14:17 IMPRESSION: Minimal pharyngeal dysphagia with trace shallow laryngeal penetration without aspiration. Please correlate with speech pathologist findings and specific feeding recommendations. Chest/Abdomen/Pelvis CT 08/27/24 09:37 IMPRESSION: 1. Mild atelectasis in the lungs. Lumbar Puncture Fluoroscopy 08/27/24 15:40 IMPRESSION: 1. Successful fluoro-guided lumbar puncture. Labs Labs: Laboratory Tests 08/28/24 05:29 08/28/24 05:29 Calcium 11.3 H Magnesium 2.3 Total Bilirubin 0.5 AST 18 ALT 11 Alkaline Phosphatase 106 Total Protein 7.0 Albumin 3.7 Microbiology 08/27/24 15:20 Cerebral Spinal Fluid Gram Stain - Final 08/27/24 15:20 Cerebral Spinal Fluid CSF Culture - Preliminary
[2024-08-28 12:11] LABS: Glucose Point of Care 375 mg/dl (65-105)
--- NOTE | 2024-08-28 14:56 | P.PNIM_ITS ---
Progress Note: A&P Assessment and Plan (1) Confusion: Code(s): R41.0 - Disorientation, unspecified Status: Acute Assessment and Plan: patient with increasing altered mental status since admission, patient slow to responding, able follow simple commands, staring into space spoke with Dr. Mack over the phone with recommendations for MMA, TSH, T3, T4, B12 and folate, follow-up outpatient to 3 weeks for Alzheimer's workup EEG pending infectious workup completed and negative ABG within normal limits MRI shows Moderate nonspecific cerebral white matter disease and pontine disease, which likely represents chronic small vessel ischemic disease, stable from 05/26/2022. gabapentin, allopurinol and narcotic medications held eeg pending sleep hygiene reduced stimuli confusion appears to be a mix possible dementia hospital-acquired hypoactive delirium and may be psychiatric issues patient also presented with low blood sugar 53 on arrival to the ED hypoxia needing oxygen supplementation. Echo EF 65-70% grade [address] chest abdomen pelvis with no acute findings. Repeat ABG unremarkable lactic acid normal Hypercalcemia noted. Started on IV fluids as BRADY also worsening. Hypercalcemia slightly better today Neurology consult Spinal tap performed 08/27/2024. Negative for bacterial. Viral etiology still possible. On acyclovir renally dose (2) UTI (urinary tract infection): Qualifiers: Urinary tract infection type: site unspecified Hematuria presence: without hematuria Qualified Code(s): N39.0 - Urinary tract infection, site not specified Code(s): N39.0 - Urinary tract infection, site not specified Status: Acute Assessment and Plan: * UA revealed cloudy urine appearance, 2+ urine glucose, positive nitrate, 2+ leukocyte, 51-100 urine WBC, 4+ urine bacteria. * Urine and blood culture was obtained and pending * patient was started on Rocephin * urine culture from 06/23/2023 revealed E coli which was essentially pansensitive except for Bactrim * switched to cefepipme IV to Septra. Concludes Septra * leukocytosis resolved (3) Acute respiratory failure with hypoxia: Code(s): J96.01 - Acute respiratory failure with hypoxia Status: Acute Assessment and Plan: * patient is not on any baseline oxygen during the day however is requiring 2-4 L nasal cannula now due to hypoxia in the ER with oxygen saturation of 87% on room air. * likely secondary to CHF exacerbation complicated by chronic kidney disease stage IV * respiratory panel was negative for influenza a and B, RSV, COVID * ABG showed normal pH of 7.366, pCO2 46.2, PO2 58.7, bicarb 25.9 * patient was started on Rocephin and azithromycin while in the ED * white blood cell count was normal at 8.6, she is afebrile * D-dimer ordered, V/Q scan low probability * EKG showing sinus rhythm with a rate of 66, QTC 423 (4) CHF (congestive heart failure), NYHA class I: Qualifiers: Congestive heart failure type: unspecified Qualified Code(s): I50.9 - Heart failure, unspecified Code(s): I50.9 - Heart failure, unspecified Status: Acute Assessment and Plan: * echocardiogram from 12/30/2021 showed normal LV systolic function with an estimated EF of 65-70%, grade 1 diastolic dysfunction. * Chest x-ray reporting airspace opacities in the lower lung zones likely atelectasis. After reviewing the chest x-ray myself and comparing it to a previous chest x-ray patient does appear to have pulmonary edema * proBNP ordered * a one time dose of 40 mg of IV Lasix ordered-- Will hold off on further diuresis considering renal function * consider nephrology consult if requiring further diuresis * echocardiogram EF 65-70% restart home Lasix which has been on hold due to hypercalcemia +1 pedal edema (5) Type 2 diabetes mellitus: Qualifiers: Diabetes mellitus oysterman insulin use: with fpc use Diabetes mellitus complication status: with kidney complications Diabetes mellitus complication detail: with chronic kidney disease Chronic kidney disease stage: stage 3 (moderate) Chronic kidney disease stage 3 subtype: stage 3b (GFR 30-44) Qualified Code(s): E11.22 - Type 2 diabetes mellitus with diabetic chronic kidney disease; N18.32 - Chronic kidney disease, stage 3b; Z79.4 - alf (current) use of insulin Code(s): E11.9 - Type 2 diabetes mellitus without complications Status: Chronic Assessment and Plan: * Blood sugars ranging 201-260 * Hgb A1C 8.4 on 05/26/2022 * repeat hemoglobin A1c ordered * Accu checks AC/HS * high-dose SSI ordered * hypoglycemic protocol in place * Diabetic diet ordered * hold Farxiga and mealtime replacement insulin * hold Lantus for now considering reported blood sugar a 53, will reassess in the morning 08/19- BS had been high today- 380's * -order regular insulin x 1 and recheck * - continue high dose SS and hypoglycemia [protocol * -will add Lantus 10 units and monitor as had been stable * -if continues to be elevated- will add base meal insulin 08/20 increased Lantus 08/22 Lantus increased and increase and mealtime insulin 08/23 Lantus increased and increase and mealtime insulin 08/24 Lantus increased and increase and mealtime insulin (6) Chronic kidney disease, stage IV (severe): Code(s): N18.4 - Chronic kidney disease, stage 4 (severe) Status: Chronic Assessment and Plan: * creatinine 2.9, EGFR 16 * baseline creatinine 2.10-2.60, baseline EGFR 18-23 * continue to trend * avoid nephrotoxic medications or testing with IV contrast * - nephrology consulted- PTH level urine calcium to creatinine ratio. (7) Hypertension: Code(s): I10 - Essential (primary) hypertension Status: Chronic Assessment and Plan: * blood pressure ranging 114/72-136/72 * continue carvedilol (8) Obstructive sleep apnea on CPAP: Code(s): G47.33 - Obstructive sleep apnea (adult) (pediatric); Z99.89 - Dependence on other enabling machines and devices Status: Chronic Assessment and Plan: * patient does not wear CPAP only wears 2L of oxygen at night only * Recheck ABG reviewed (9) Hyperlipidemia: Qualifiers: Hyperlipidemia type: other hyperlipidemia Qualified Code(s): E78.49 - Other hyperlipidemia Code(s): E78.5 - Hyperlipidemia, unspecified Status: Chronic Assessment and Plan: * continue atorvastatin and aspirin (10) Hypothyroidism: Qualifiers: Hypothyroidism type: acquired Qualified Code(s): E03.9 - Hypothyroidism, unspecified Code(s): E03.9 - Hypothyroidism, unspecified Status: Chronic Assessment and Plan: * continue Synthroid * TSH 1.9 (11) Elevated d-dimer: Code(s): R79.89 - Other specified abnormal findings of blood chemistry Status: Acute Assessment and Plan: * D-dimer 0.79 * Will get V/Q scan to rule out PE considering her history of DVT and PE in the past and is not currently on any anticoagulation * see Acute resp failure plan * VQ scan shows Low probability for pulmonary embolism. (12) Radial styloid fracture: Qualifiers: Encounter type: initial encounter Fracture type: closed Fracture alignment: nondisplaced Laterality: right Qualified Code(s): S52.514A - Nondisplaced fracture of right radial styloid process, initial encounter for closed fracture Code(s): S52.513A - Displaced fracture of unspecified radial styloid process, initial encounter for closed fracture Status: Acute Assessment and Plan: Right Possibly subacute. orthopedics consulted brace for support okay for range of motion platform walker weight-bearing through elbow brace for 4-6 weeks and follow-up outpatient clinic Subjective Date/time seen: 08/28/24 14:56 Interval history: No overnight events reported. Patient more verbal today. Denies any shortness of breath chest pain. Review of Systems Review of Systems: All systems reviewed & are unremarkable except as noted in HPI and below Exam Narrative: General: Week appearance, well nourished, pleasantly Confused Head: atraumatic, no encephalopathy Eyes: PERRLA, sclera clear ENT: moist mucous membranes, nasal passages clear Neck: supple, no JVD, no adenopathy, trachea midline Cardiac: Normal S1 and S2. No murmur, gallops or friction rubs, peripheral pulses intact. Respiratory: Lungs clear in the upper lobes, diminished in the bases, currently on room air, no adventitious lung sounds noted Gastrointestinal: soft, non-distended, non-tender, normoactive bowel sounds. : voiding without difficulty via purewick, clear and yellow. Extremities: moves all extremities fair, 1 to 2+ pitting edema to bilateral lower extremity Skin: clean, dry, intact. No wounds or lesions. Neuro: Alert and oriented x 1, cranial nerves intact, no neuro deficits. Slow response but more verbal today Psych: flat mood Objective Data Vital Signs Vital Signs: Vital Signs - 24 hr 08/27/24 15:00 08/27/24 15:28 08/27/24 20:00 Temperature Pulse Rate 101 H 98 Respiratory Rate 18 19 Blood Pressure 142/84 H 147/88 H Pulse Oximetry 97 98 97 Oxygen Delivery Nasal Cannula Oxygen Flow Rate 3 Fraction of Inspired Oxygen 08/27/24 21:26 08/27/24 21:26 08/27/24 21:31 Temperature Pulse Rate 107 H 107 H 107 H Respiratory Rate 20 20 Blood Pressure Pulse Oximetry 94 Oxygen Delivery Nasal Cannula Oxygen Flow Rate 3 Fraction of Inspired Oxygen 08/27/24 21:32 08/28/24 01:46 08/28/24 01:53 Temperature 97.4 F L Pulse Rate 99 102 H 105 H Respiratory Rate 18 20 20 Blood Pressure 116/63 Pulse Oximetry 92 Oxygen Delivery Oxygen Flow Rate Fraction of Inspired Oxygen 08/28/24 06:00 08/28/24 08:45 08/28/24 08:34 Temperature 97.6 F Pulse Rate 111 H 112 H Respiratory Rate 18 20 Blood Pressure 143/67 H Pulse Oximetry 92 93 Oxygen Delivery Nasal Cannula Oxygen Flow Rate 3 Fraction of Inspired Oxygen 32 08/28/24 08:34 08/28/24 08:57 08/28/24 08:55 Temperature Pulse Rate 111 H 114 H Respiratory Rate 20 Blood Pressure Pulse Oximetry 95 Oxygen Delivery Nasal Cannula Oxygen Flow Rate 3 Fraction of Inspired Oxygen 32 08/28/24 13:32 08/28/24 13:41 08/28/24 14:00 Temperature 97.7 F Pulse Rate 102 H 104 H 111 H Respiratory Rate 20 20 18 Blood Pressure 128/67 Pulse Oximetry 91 Oxygen Delivery Oxygen Flow Rate Fraction of Inspired Oxygen Intake/Output Intake/Output: Intake & Output 08/26/24 08/26/24 08/27/24 08/28/24 00:59 23:59 23:59 23:59 Intake Total 1597.5 1860 Output Total 950 600 Balance 647.5 1260 Meds/Results Medications: Active Medications Generic Name Dose Route Start Last Admin Trade Name Freq PRN Reason Stop Dose Admin Acetaminophen 650 mg 08/17/24 16:39 08/28/24 13:47 Acetaminophen 325 Mg Tablet PO 650 mg Q4H PRN Administration Mild Pain (1-3) or Fever Hydrocodone Bitart/Acetaminophen 1 tab 08/18/24 14:16 08/18/24 21:39 Hydrocodone/Acetaminophen (*Crx) 5-325 Mg Tablet PO 1 tab Q4H PRN Administration Pain Rated 4-6 Albuterol/Ipratropium 3 ml 08/17/24 20:00 08/28/24 13:32 Ipratropium 0.5 Mg/Albuterol Sulfate 2.5 Mg Ampul.Neb 3 Ml INHALATION 3 ml Q6HRT KAELA Administration Allopurinol 300 mg 08/18/24 09:00 08/22/24 09:58 Allopurinol 300 Mg Tablet PO 300 mg DAILY KAELA Administration Amitriptyline HCl 10 mg 08/17/24 21:00 08/24/24 21:24 Amitriptyline Hcl 10 Mg Tablet PO 10 mg QHS KAELA Administration Aspirin 81 mg 08/18/24 09:00 08/28/24 08:55 Aspirin 81 Mg Enteric Tablet PO 81 mg QAM KAELA Administration Atorvastatin Calcium 10 mg 08/17/24 21:00 08/27/24 19:41 Atorvastatin 10 Mg Tablet PO 10 mg HS KAELA Administration Benzonatate 100 mg 08/17/24 20:42 08/26/24 10:07 Benzonatate 100 Mg Capsule PO 100 mg TID PRN Administration Cough Cyanocobalamin 1,000 mcg 08/27/24 12:35 08/28/24 08:56 Cyanocobalamin Inj 1,000 Mcg/Ml Vial IM 1,000 mcg DAILY KAELA Administration Dextrose 12.5 gm 08/17/24 17:18 Dextrose 50% 25 Gm/50 Ml Syringe IV PUSH PRN PRN Hypoglycemia Protocol Empagliflozin 10 mg 08/24/24 09:00 08/28/24 08:55 Empagliflozin 10 Mg Tablet BY MOUTH 10 mg DAILY KAELA Administration Enoxaparin Sodium 40 mg 08/23/24 09:00 08/28/24 08:57 Enoxaparin 40 Mg/0.4 Ml Syringe SUB-Q 40 mg DAILY KAELA Administration Escitalopram Oxalate 20 mg 08/18/24 09:00 08/28/24 08:55 Escitalopram Oxalate 10 Mg Tablet PO 20 mg DAILY KAELA Administration Fluticasone Propionate 2 spray 08/18/24 09:00 08/28/24 08:56 Fluticasone Propionate 0.05% Na Spr 16 Gm Btl (*Bkc) NASAL 2 spray DAILY KAELA Administration Furosemide 40 mg 08/18/24 09:00 Furosemide Inj 40 Mg/4 Ml Vial IV PUSH BID KAELA Furosemide 80 mg 08/23/24 15:00 08/27/24 09:15 Furosemide 80 Mg Tablet PO Not Given BID@0800,1400 KAELA Gabapentin 300 mg 08/17/24 21:00 08/21/24 20:30 Gabapentin 300 Mg Capsule PO 300 mg QHS KAELA Administration Glucagon 1 mg 08/17/24 17:18 Glucagon For Inj 1 Mg Vial IM PRN PRN Hypoglycemia Protocol Glucose 15 gm 08/17/24 17:18 Glucose Oral Gel 15 Gm Of Glucse In 37.5 Gm Tube PO PRN PRN Hypoglycemia Protocol Dextrose 1,000 mls @ 100 mls/hr 08/17/24 17:18 Dextrose 5% 1,000 Ml IVPB PRN PRN Hypoglycemia Protocol Sodium Chloride 1,000 mls @ 75 mls/hr 08/27/24 09:50 08/28/24 13:48 Normal Saline Iv IV CONT Not Given .[id number] KAELA Acyclovir Sodium 1,375 mg/ 277.5 mls @ 250 mls/hr 08/27/24 17:00 08/27/24 18:42 Dextrose IVPB Infused Q24H KAELA Infusion Insulin Aspart 2 - 4 units 08/17/24 21:00 08/27/24 19:42 Insulin Aspart (*Bkc) 100 Units/Ml SUB-Q 2 units HS KAELA Administration Protocol Insulin Aspart 2 - 5 units 08/24/24 17:00 08/28/24 12:08 Insulin Aspart (*Bkc) 100 Units/Ml SUB-Q 5 units TIDWM KAELA Administration Protocol Insulin Aspart 15 units 08/26/24 12:00 08/28/24 12:08 Insulin Aspart (*Bkc) 100 Units/Ml SUB-Q 15 units TIDWM KAELA Administration Insulin Glargine 45 units 08/26/24 21:00 08/27/24 19:42 Insulin Glargine (*Bkc) 100 Units/Ml SUB-Q 45 units HS KAELA Administration Levothyroxine Sodium 50 mcg 08/18/24 06:30 08/28/24 05:08 Levothyroxine Sodium 50 Mcg Tablet PO 50 mcg DAILY@0630 KAELA Administration Metoprolol Succinate 25 mg 08/21/24 09:00 08/28/24 08:57 Metoprolol Succinate Ext Rel 25 Mg Tabcr PO 25 mg QAM KAELA Administration Ondansetron HCl 4 mg 08/17/24 17:17 Ondansetron Inj 4 Mg/2 Ml Vial IV PUSH Q6H PRN Nausea And Vomiting Pantoprazole Sodium 40 mg 08/18/24 09:00 08/28/24 08:55 Pantoprazole 40 Mg Tablet PO 40 mg QAM KAELA Administration Sodium Chloride 2 spray 08/17/24 20:42 08/27/24 09:18 Saline 0.65% Sha Soln 44 Ml Btl NASAL 2 spray QID PRN Administration nasal congestion/dryness Radiology Results: ITS Impressions Shoulder X-Ray 08/18/24 15:56 IMPRESSION: Osteopenia Head CT 08/20/24 09:56 IMPRESSION: 1. Stable moderate nonspecific cerebral white matter disease, which likely represents chronic small vessel ischemic disease. Pulmonary Perfusion Imaging 08/20/24 12:15 IMPRESSION: 1. Low probability for pulmonary embolism. Brain MRI 08/22/24 16:06 IMPRESSION: 1. Moderate nonspecific cerebral white matter disease and pontine disease, which likely represents chronic small vessel ischemic disease, stable from 05/26/2022. Chest X-Ray 08/22/24 18:38 IMPRESSION: Moderate interstitial edema. Subsegmental bibasilar atelectasis/consolidation. Possible small bilateral effusions. Hand X-Ray 08/23/24 15:26 IMPRESSION: Possible fracture in the distal radius. Clinical correlation and proper images are advised. Slight narrowing of the proximal and distal interphalangeal joints. Forearm X-Ray 08/24/24 11:01 IMPRESSION: 1. No fracture identified. 2. Loose bodies in the radiocarpal compartment. Modified Barium Swallow 08/24/24 14:17 IMPRESSION: Minimal pharyngeal dysphagia with trace shallow laryngeal penetration without aspiration. Please correlate with speech pathologist findings and specific feeding recommendations. Chest/Abdomen/Pelvis CT 08/27/24 09:37 IMPRESSION: 1. Mild atelectasis in the lungs. Lumbar Puncture Fluoroscopy 08/27/24 15:40 IMPRESSION: 1. Successful fluoro-guided lumbar puncture. Labs Labs: Laboratory Results - last 24 hr 08/27/24 08/27/24 08/27/24 15:20 16:53 19:18 WBC RBC Hgb Hct MCV MCH MCHC RDW Plt Count MPV Immature Gran % (Auto) Neut % (Auto) Lymph % (Auto) Carson % (Auto) Eos % (Auto) Baso % (Auto) Lymph # (Auto) Carson # (Auto) Eos # (Auto) Baso # (Auto) Abs Immat Gran (auto) Absolute Neuts (auto) Absolute Nucleated RBC Nucleated RBC % Sodium Potassium Chloride Carbon Dioxide Anion Gap BUN Creatinine Estim Creat Clear Calc Estimated GFR Glucose POC Capillary Glucose 237 H 276 H Calcium Magnesium Total Bilirubin AST ALT Alkaline Phosphatase Total Protein Albumin CSF Source Csf CSF Appearance Clear CSF Color Colorless CSF RBC 9 H CSF Tot Nucleated Cells 2 CSF Neutrophils 0 CSF Lymphocytes 70 CSF Monocytes 30 CSF Glucose 136 H CSF Total Protein 102 H 08/28/24 08/28/24 08/28/24 05:29 08:09 12:05 WBC 8.0 RBC 4.04 L Hgb 12.2 Hct 38.7 MCV 95.8 MCH 30.2 MCHC 31.5 L RDW 16.2 H Plt Count 330 MPV 10.1 Immature Gran % (Auto) 0.4 Neut % (Auto) 56.6 Lymph % (Auto) 26.5 Carson % (Auto) 9.6 H Eos % (Auto) 6.1 H Baso % (Auto) 0.8 Lymph # (Auto) 2.12 Carson # (Auto) 0.8 H Eos # (Auto) 0.5 H Baso # (Auto) 0.1 Abs Immat Gran (auto) 0.03 Absolute Neuts (auto) 4.5 Absolute Nucleated RBC 0.000 Nucleated RBC % 0.0 Sodium 135 L Potassium 3.7 Chloride 97 L Carbon Dioxide 26 Anion Gap 12 BUN 65 H Creatinine 3.30 H Estim Creat Clear Calc 20 Estimated GFR 14 L Glucose 200 H POC Capillary Glucose 214 H 375 H Calcium 11.3 H Magnesium 2.3 Total Bilirubin 0.5 AST 18 ALT 11 Alkaline Phosphatase 106 Total Protein 7.0 Albumin 3.7 CSF Source CSF Appearance CSF Color CSF RBC CSF Tot Nucleated Cells CSF Neutrophils CSF Lymphocytes CSF Monocytes CSF Glucose CSF Total Protein
[2024-08-28 17:08] LABS: Glucose Point of Care 233 mg/dl (65-105)
[2024-08-28] MEDS: WATER IVPB (17:23)
[2024-08-28] MEDS: DEXTROSE 5% IVPB (17:23)
[2024-08-28] MEDS: ACYCLOVIR SODIUM IVPB (17:23)
[2024-08-28] MEDS: ATORVASTATIN 10 MG TABLET PO (20:34)
[2024-08-28] MEDS: INSULIN GLARGINE (*BKC) 100 UNITS/ML 45 UNITS SUB-Q (20:34)
[2024-08-28 21:20] LABS: Glucose Point of Care 175 mg/dl (65-105)
[2024-08-29] VITALS (14 sets, daily range): BP systolic 149–159; BP diastolic 69–90; PULSE 88–106; RESP 19–22; TEMP 36.2–36.6; O2SAT 90–97; BMI 10.0
[2024-08-29] MEDS: IPRATROPIUM 0.5 MG/ALBUTEROL SULFATE 2.5 MG AMPUL.NEB 3 ML INHALATION ×4 (01:39→20:02)
[2024-08-29 05:34] LABS: Basophils Absolute Auto 0.1 K/mm3 (0.0-0.1); Basophils Percent Auto 0.9 % (0.2-1.2); Eosinophils Absolute Auto 0.6 K/mm3 (0-0.3); Eosinophils Percent Auto 8.2 % (0-4.4); Hematocrit 37.8 % (37.0-47.0); Hemoglobin 11.5 g/dL (12.0-15.0); Immature Granulocyte Absolute 0.03 K/mm3 (0.00-0.031); Immature Granulocyte Percent A 0.4 % (0-0.5); Lymphocytes Absolute Auto 1.76 K/mm3 (0.9-3.2); Lymphocytes Percent Auto 26.2 % (18.3-44.2); Mean Corpuscular HGB Conc 30.4 g/dl (32-36); Mean Corpuscular Hemoglobin 29.7 pg (26-34); Mean Corpuscular Volume 97.7 fl (80-100); Mean Platelet Volume 10.1 fl (7.4-10.4); Monocytes Absolute Auto 0.8 K/mm3 (0.1-0.6); Monocytes Percent Auto 12.4 % (2.6-8.5); Neutrophils Absolute Auto 3.5 K/mm3 (1.3-6.7); Neutrophils Percent Auto 51.9 % (45.5-73.1); Platelet Count Result 331 k/mm3 (150-375); Red Blood Count 3.87 M/mm3 (4.2-5.4); Red Cell Distribution Width 16.4 % (11.5-14.5); White Blood Count 6.7 K/mm3 (4.5-10.0)
[2024-08-29 05:49] LABS: Alanine Aminotransferase 10 U/L (6-35); Albumin Level 3.4 g/dL (3.5-5.1); Alkaline Phosphatase 82 U/L (38-126); Anion Gap 5 mmol/L (4-12); Aspartate Amino Transferase 23 U/L (14-36); Bilirubin,Total 0.7 mg/dL (0.2-1.3); Blood Urea Nitrogen 56 mg/dL (7-17); Carbon Dioxide 28 mmol/L (22-30); Chloride 102 mmol/L (98-107); Estimated CRCL calculation 23 ml/min; Estimated Glomerular Filt Rate 17; Glucose 165 mg/dL (65-110); Magnesium 2.3 mg/dL (1.6-2.3); Potassium 4.1 mmol/L (3.4-5.0); Sodium 135 mmol/L (137-145)
[2024-08-29] MEDS: LEVOTHYROXINE SODIUM 50 MCG TABLET PO (06:03)
[2024-08-29 08:39] LABS: Glucose Point of Care 181 mg/dl (65-105)
[2024-08-29] MEDS: METOPROLOL SUCCINATE EXT REL 25 MG TABCR PO (09:30)
[2024-08-29] MEDS: ENOXAPARIN 40 MG/0.4 ML SYRINGE SUB-Q (09:30)
[2024-08-29] MEDS: ASPIRIN 81 MG ENTERIC TABLET PO (09:30)
[2024-08-29] MEDS: ESCITALOPRAM OXALATE 10 MG TABLET 20 MG PO (09:30)
[2024-08-29] MEDS: PANTOPRAZOLE 40 MG TABLET PO (09:30)
[2024-08-29] MEDS: CYANOCOBALAMIN INJ 1,000 MCG/ML VIAL 1000 MCG IM (09:30)
[2024-08-29] MEDS: EMPAGLIFLOZIN 10 MG TABLET BY MOUTH (09:30)
[2024-08-29] MEDS: FLUTICASONE PROPIONATE 0.05% NA SPR 16 GM BTL (*BKC) 2 SPRAY NASAL (09:31)
[2024-08-29] MEDS: INSULIN ASPART (*BKC) 100 UNITS/ML 15 UNITS SUB-Q ×3 (09:33→17:58)
--- NOTE | 2024-08-29 11:49 | WPDNEURCNPN ---
Consult date: 08/29/24 HPI: Beto Bryan is a 73 year old female Admitted to the hospital through the emergency room for the complaints of generalized weakness with initial documentation of blood sugar of 53 and with the information that she did take her insulin in the morning but did not eat initially her oxygen levels were also low for which she received the oxygen and she does use the oxygen at night during sleep though she does not wear the CPAP. She did not give history of any associated fever or chills but she does have chronic coarse cough. Her medication particularly included allopurinol 300mg daily, atorvastatin 10mg at night aspirin 81mg daily fexofenadine 180mg daily Fioricet 1 capsule every 6hours a p.r.n. basis , carvedilol 25mg b.i.d. 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 Tien Youngblood who had suggested the spinal tap rule out the possibility of encephalitis, EEG was done which was definitely obviously abnormal consistent with the generalized encephalopathy, his spinal fluid studies were recommended by Dr. Tien hopkins when he saw her initially and the fluid revealed 9 RBC 2 nucleated cells glucose 136 protein 102 and spinal fluid culture is negative. Considering all the evaluation and the hospital course up until now her encephalopathy is multifactorial with no signs of infection though Dr. Chauhan has suggested the MMA TSH T3-T4 B12 and folate level as per the conversation, with the hospitalist. At this particular time considering the abnormal EEG she has diffuse involvement the hemisphere without any evidence of acute seizure or postictal state all other spinal fluid studies are pending except the CSF glucose of 136 protein was 102 but there was no more abnormalities. At this stage her disposition should be on the multiple underlying medical problem with no acute infection but continual supportive care thank [facility] Past Medical History Medical History (Updated 08/27/24 @ 15:54 by Yoel Mack MD) BRADY (acute kidney injury) Anemia Aortic aneurysm Asthma Carpal tunnel syndrome on both sides Cephalgia Change in bowel habits Change in mental status CHF (congestive heart failure), NYHA class I Chronic kidney disease, stage 4 (severe) Chronic respiratory failure with hypoxia, on home oxygen therapy COPD (chronic obstructive pulmonary disease) Decubitus skin ulcer Deep venous thrombosis Diabetic neuropathy Diabetic polyneuropathy Dysphagia Gout Hypercalcemia Hyperkalemia Hyperlipidemia Hyperparathyroidism Hypertension Hyponatremia Hypothyroidism Neuropathy Obstructive sleep apnea on CPAP Osteoarthritis of facet joint of lumbar spine Pulmonary embolism Thoracic aortic aneurysm, without rupture Thyroid nodule Type 2 diabetes mellitus with hyperglycemia Surgical History Surgical History History of appendectomy History of cardiac catheterization History of cholecystectomy History of hysterectomy Hx of cataract removal with insertion of prosthetic lens Family History Family History Mother Diabetes mellitus Family history of bipolar disorder Hypertension Father Family history of cardiovascular disease Cerebrovascular accident Family history of emphysema Other Family history of anemia Family history of congestive heart failure Family history of obesity Social History Social History Social History: Surrogate decision maker: Beverly Flores, daughter. The patient also has a son. She is . 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 She is a lifelong nonsmoker. She does not use any alcohol or illicit drugs. Code status: Full code. Smoking status: Never smoker Second hand tobacco smoke exposure: No Alcohol intake: current Drinks per week: 1 Substance use: never Substance use type: does not use Do You Feel Safe in your Home?: Yes Lack of Transportation: No Lack of Food: Never True Current Housing: I Have Housing Concerned About Future Housing: No Difficulty Paying Gas/Electric Bills: No Difficulty Paying for Meds: No Currently Unemployed: No Education: Decline to Answer Difficulty w/ Childcare or Family Care: No Living arrangements: assisted living Additional living arrangements comments: Assisted living at [facility]. Gender identity (if verbalized by the patient): Female Spiritual care concerns: No Meds Home Medications and Allergies Home Medications Medication Instructions Recorded Confirmed Type magnesium oxide 400 mg PO DAILY 11/15/19 08/17/24 History allopurinol 300 mg tablet 300 mg PO DAILY 03/17/21 08/17/24 History atorvastatin 10 mg tablet 10 mg PO HS 05/27/21 08/17/24 History aspirin 81 mg capsule 81 mg PO DAILY 08/31/21 08/17/24 History fluticasone furoate 100 1 inh inhalation DAILY 12/29/21 08/17/24 History mcg-vilanterol 25 mcg/dose inhalation powder (Breo Ellipta) omega-3 fatty acids 1,000 mg PO DAILY 12/29/21 08/17/24 History escitalopram oxalate 20 mg tablet 20 mg PO DAILY #90 tabs 01/21/22 08/17/24 Rx (Lexapro) cholecalciferol (vitamin D3) 50 50 mcg PO DAILY 05/25/22 08/17/24 History mcg (2,000 unit) tablet guanfacine 2 mg tablet 2 mg PO HS 07/13/22 08/17/24 History pantoprazole 40 mg tablet,delayed 40 mg PO QAM 1 month #30 tabs 11/16/22 08/17/24 Rx release flash glucose sensor (FreeStyle #6 ea 06/29/23 08/17/24 Rx Jeffrey 2 Sensor kit) levothyroxine 50 mcg tablet 50 mcg PO DAILY #90 tabs 06/29/23 08/17/24 Rx cetirizine 10 mg tablet 10 mg PO DAILY PRN allergy 07/04/23 08/17/24 Rx symptoms #90 tabs dapagliflozin propanediol 10 mg 10 mg PO DAILY #90 tabs 01/05/24 08/17/24 Rx tablet (Farxiga) miconazole nitrate 2 % topical 1 applic topical BID #85 grams 01/10/24 08/17/24 Rx powder (Miconazorb AF) fluticasone propionate 50 2 spray intranasal DAILY #16 grams 01/17/24 08/17/24 Rx mcg/actuation nasal spray,suspension pen needle, diabetic 30 gauge x 01/24/24 08/17/24 History 1/3 fexofenadine 180 mg tablet 180 mg PO DAILY 02/08/24 08/17/24 History pen needle, diabetic, safety 30 #100 ea 03/13/24 08/17/24 Rx gauge x 1/3 (Novofine Autocover) amitriptyline 10 mg tablet 10 mg PO QHS 1 month #30 tabs 03/21/24 08/17/24 Rx albuterol sulfate 90 mcg/actuation 2 puff inhalation Q4H PRN 03/28/24 08/17/24 Rx aerosol inhaler (Ventolin HFA) shortness of breath or wheezing #8.5 grams albuterol sulfate 2.5 mg/0.5 mL 2.5 mg (0.5 mL) inhalation Q20M 05/09/24 08/17/24 Rx solution for nebulization PRN shortness of breath or wheezing #30 ea gabapentin 300 mg capsule 300 mg PO QHS #90 caps 05/09/24 08/17/24 Rx acetaminophen 325 mg tablet 650 mg PO BID 08/17/24 08/17/24 History acetaminophen 500 mg tablet 500 mg PO Q6H PRN mild pain or 08/17/24 08/17/24 History fever atogepant 10 mg tablet (Qulipta) 10 mg PO DAILY 08/17/24 08/17/24 History benzonatate 100 mg capsule 100 mg PO TID PRN Cough 08/17/24 08/17/24 History gvnvphqilv-ijkyedcucknue-oretupsz 2 cap PO DAILY PRN Pain 08/17/24 08/17/24 History 50 mg-300 mg-40 mg capsule (Fioricet) carvedilol 25 mg tablet 25 mg PO BIDWM 08/17/24 08/17/24 History furosemide 80 mg tablet See Rx Instructions .Route .COMPLEX 08/17/24 08/17/24 History insulin glargine 100 unit/mL (3 45 unit subcut QAM 08/17/24 08/17/24 History mL) subcutaneous pen (Basaglar KwikPen U-100 Insulin) insulin lispro 100 unit/mL 12 unit subcut QACBREAK E11.65 - 08/17/24 08/17/24 History subcutaneous pen (Humalog KwikPen Type 2 diabetes mellitus with (U-100) Insulin) hyperglycem insulin lispro 100 unit/mL See Rx Instructions .Route .COMPLEX 08/17/24 08/17/24 History subcutaneous pen (Humalog KwikPen (U-100) Insulin) insulin lispro 100 unit/mL See Rx Instructions .Route .COMPLEX 08/17/24 08/17/24 History subcutaneous pen (Humalog KwikPen (U-100) Insulin) sodium chloride 0.65 % nasal spray 2 spray intranasal QID PRN nasal 08/17/24 08/17/24 History aerosol (Deep Sea Nasal) congestion/dryness Allergies Allergy/AdvReac Type Severity Reaction Status Date / Time No Known Allergies Allergy Verified 08/17/24 22:00 Vital Signs Vital Signs - 24 hr 08/28/24 13:32 08/28/24 13:41 08/28/24 14:00 Temperature 36.5 C Pulse Rate 102 H 104 H 111 H Respiratory Rate 20 20 18 Blood Pressure 128/67 Pulse Oximetry 91 Oxygen Delivery Oxygen Flow Rate 08/28/24 20:03 08/28/24 20:03 08/28/24 20:00 Temperature Pulse Rate 103 H Respiratory Rate 20 Blood Pressure Pulse Oximetry 93 94 Oxygen Delivery Nasal Cannula Nasal Cannula Oxygen Flow Rate 3 3 08/28/24 21:20 08/29/24 01:41 08/28/24 20:11 Temperature 36.5 C Pulse Rate 104 H 95 105 H Respiratory Rate 20 20 20 Blood Pressure 151/55 H Pulse Oximetry 95 Oxygen Delivery Oxygen Flow Rate 08/29/24 01:50 08/29/24 06:00 08/29/24 07:54 Temperature 36.6 C Pulse Rate 97 95 92 Respiratory Rate 20 20 20 Blood Pressure 159/90 H Pulse Oximetry 97 Oxygen Delivery Oxygen Flow Rate 08/29/24 07:55 08/29/24 08:03 08/29/24 09:41 Temperature Pulse Rate 88 Respiratory Rate 20 Blood Pressure Pulse Oximetry 91 91 Oxygen Delivery Nasal Cannula Nasal Cannula Oxygen Flow Rate 3 3 Results Labs 08/29/24 05:01 08/29/24 05:01 Labs: Short CBC 08/29/24 Range/Units 05:01 WBC 6.7 (4.5-10.0) K/mm3 Hgb 11.5 L (12.0-15.0) g/dL Hct 37.8 (37.0-47.0) % Plt Count 331 (150-375) k/mm3 BMP 08/29/24 05:01 Sodium 135 L Potassium 4.1 Chloride 102 Carbon Dioxide 28 BUN 56 H Creatinine 2.80 H Glucose 165 H Calcium 11.0 H Liver Function 08/29/24 Range/Units 05:01 Total Bilirubin 0.7 (0.2-1.3) mg/dL AST 23 (14-36) U/L ALT 10 (6-35) U/L Alkaline Phosphatase 82 (38-126) U/L Albumin 3.4 L (3.5-5.1) g/dL
[2024-08-29 12:06] LABS: Glucose Point of Care 255 mg/dl (65-105)
[2024-08-29] MEDS: INSULIN ASPART (*BKC) 100 UNITS/ML SUB-Q ×3 (12:37→20:21)
[2024-08-29] MEDS: SODIUM CHLORIDE 0.9% IV 1,000 ML 75 ML IV CONT (12:38)
--- NOTE | 2024-08-29 13:54 | PM.PNNEP ---
Subjective Date/time seen: 08/29/24 13:54 Objective Data Vital Signs Vital Signs: Vital Signs Temp Pulse Resp BP Pulse Ox O2 Del Method O2 Flow Rate 08/29/24 12:05 97.8 F 101 H 19 153/76 H 92 08/29/24 09:41 91 Nasal Cannula 3 08/29/24 08:03 88 20 08/29/24 07:55 91 Nasal Cannula 3 08/29/24 07:54 92 20 08/29/24 06:00 97.9 F 95 20 159/90 H 97 08/29/24 01:50 97 20 08/28/24 20:11 105 H 20 08/29/24 01:41 95 20 08/28/24 21:20 97.7 F 104 H 20 151/55 H 95 08/28/24 20:00 94 Nasal Cannula 3 08/28/24 20:03 93 Nasal Cannula 3 08/28/24 20:03 103 H 20 Intake/Output Intake/Output: Intake & Output 08/26/24 08/27/24 08/28/24 08/29/24 23:59 23:59 23:59 23:59 Intake Total 1597.5 2860 1340 Output Total 950 1200 400 Balance 647.5 1660 940 Meds/Results Medications: Active Medications Generic Name Dose Route Start Last Admin Trade Name Oleksandrq PRN Reason Stop Dose Admin Acetaminophen 650 mg 08/17/24 16:39 08/28/24 13:47 Acetaminophen 325 Mg Tablet PO 650 mg Q4H PRN Administration Mild Pain (1-3) or Fever Albuterol/Ipratropium 3 ml 08/29/24 14:00 08/29/24 14:11 Ipratropium 0.5 Mg/Albuterol Sulfate 2.5 Mg Ampul.Neb 3 Ml INHALATION 3 ml [id number] KAELA Administration Allopurinol 300 mg 08/18/24 09:00 08/22/24 09:58 Allopurinol 300 Mg Tablet PO 300 mg DAILY KAELA Administration Amitriptyline HCl 10 mg 08/17/24 21:00 08/24/24 21:24 Amitriptyline Hcl 10 Mg Tablet PO 10 mg QHS KAELA Administration Aspirin 81 mg 08/18/24 09:00 08/29/24 09:30 Aspirin 81 Mg Enteric Tablet PO 81 mg QAM KAELA Administration Atorvastatin Calcium 10 mg 08/17/24 21:00 08/28/24 20:34 Atorvastatin 10 Mg Tablet PO 10 mg HS KAELA Administration Benzonatate 100 mg 08/17/24 20:42 08/26/24 10:07 Benzonatate 100 Mg Capsule PO 100 mg TID PRN Administration Cough Cyanocobalamin 1,000 mcg 08/27/24 12:35 08/29/24 09:30 Cyanocobalamin Inj 1,000 Mcg/Ml Vial IM 1,000 mcg DAILY KAELA Administration Dextrose 12.5 gm 08/17/24 17:18 Dextrose 50% 25 Gm/50 Ml Syringe IV PUSH PRN PRN Hypoglycemia Protocol Empagliflozin 10 mg 08/24/24 09:00 08/29/24 09:30 Empagliflozin 10 Mg Tablet BY MOUTH 10 mg DAILY KAELA Administration Enoxaparin Sodium 40 mg 08/23/24 09:00 08/29/24 09:30 Enoxaparin 40 Mg/0.4 Ml Syringe SUB-Q 40 mg DAILY KAELA Administration Escitalopram Oxalate 20 mg 08/18/24 09:00 08/29/24 09:30 Escitalopram Oxalate 10 Mg Tablet PO 20 mg DAILY KAELA Administration Fluticasone Propionate 2 spray 08/18/24 09:00 08/29/24 09:31 Fluticasone Propionate 0.05% Na Spr 16 Gm Btl (*Bkc) NASAL 2 spray DAILY KAELA Administration Furosemide 40 mg 08/18/24 09:00 Furosemide Inj 40 Mg/4 Ml Vial IV PUSH BID KAELA Furosemide 80 mg 08/23/24 15:00 08/27/24 09:15 Furosemide 80 Mg Tablet PO Not Given BID@0800,1400 KAELA Gabapentin 300 mg 08/17/24 21:00 08/21/24 20:30 Gabapentin 300 Mg Capsule PO 300 mg QHS KAELA Administration Glucagon 1 mg 08/17/24 17:18 Glucagon For Inj 1 Mg Vial IM PRN PRN Hypoglycemia Protocol Glucose 15 gm 08/17/24 17:18 Glucose Oral Gel 15 Gm Of Glucse In 37.5 Gm Tube PO PRN PRN Hypoglycemia Protocol Dextrose 1,000 mls @ 100 mls/hr 08/17/24 17:18 Dextrose 5% 1,000 Ml IVPB PRN PRN Hypoglycemia Protocol Sodium Chloride 1,000 mls @ 75 mls/hr 08/27/24 09:50 08/29/24 12:38 Normal Saline Iv IV CONT 75 mls/hr .[id number] KAELA Administration Acyclovir Sodium 1,375 mg/ 277.5 mls @ 250 mls/hr 08/27/24 17:00 08/28/24 17:23 Dextrose IVPB 250 mls/hr Q24H KAELA Administration Insulin Aspart 2 - 4 units 08/17/24 21:00 08/28/24 20:40 Insulin Aspart (*Bkc) 100 Units/Ml SUB-Q Not Given HS [facility] Protocol Insulin Aspart 2 - 5 units 08/24/24 17:00 08/29/24 12:37 Insulin Aspart (*Bkc) 100 Units/Ml SUB-Q 3 units TIDWM KAELA Administration Protocol Insulin Aspart 15 units 08/26/24 12:00 08/29/24 12:37 Insulin Aspart (*Bkc) 100 Units/Ml SUB-Q 15 units TIDWM KAELA Administration Insulin Glargine 45 units 08/26/24 21:00 08/28/24 20:34 Insulin Glargine (*Bkc) 100 Units/Ml SUB-Q 45 units HS KAELA Administration Levothyroxine Sodium 50 mcg 08/18/24 06:30 08/29/24 06:03 Levothyroxine Sodium 50 Mcg Tablet PO 50 mcg DAILY@0630 KAELA Administration Metoprolol Succinate 25 mg 08/21/24 09:00 08/29/24 09:30 Metoprolol Succinate Ext Rel 25 Mg Tabcr PO 25 mg QAM KAELA Administration Ondansetron HCl 4 mg 08/17/24 17:17 Ondansetron Inj 4 Mg/2 Ml Vial IV PUSH Q6H PRN Nausea And Vomiting Pantoprazole Sodium 40 mg 08/18/24 09:00 08/29/24 09:30 Pantoprazole 40 Mg Tablet PO 40 mg QAM KAELA Administration Sodium Chloride 2 spray 08/17/24 20:42 08/27/24 09:18 Saline 0.65% Sha Soln 44 Ml Btl NASAL 2 spray QID PRN Administration nasal congestion/dryness Radiology Results: ITS Impressions Shoulder X-Ray 08/18/24 15:56 IMPRESSION: Osteopenia Head CT 08/20/24 09:56 IMPRESSION: 1. Stable moderate nonspecific cerebral white matter disease, which likely represents chronic small vessel ischemic disease. Pulmonary Perfusion Imaging 08/20/24 12:15 IMPRESSION: 1. Low probability for pulmonary embolism. Brain MRI 08/22/24 16:06 IMPRESSION: 1. Moderate nonspecific cerebral white matter disease and pontine disease, which likely represents chronic small vessel ischemic disease, stable from 05/26/2022. Chest X-Ray 08/22/24 18:38 IMPRESSION: Moderate interstitial edema. Subsegmental bibasilar atelectasis/consolidation. Possible small bilateral effusions. Hand X-Ray 08/23/24 15:26 IMPRESSION: Possible fracture in the distal radius. Clinical correlation and proper images are advised. Slight narrowing of the proximal and distal interphalangeal joints. Forearm X-Ray 08/24/24 11:01 IMPRESSION: 1. No fracture identified. 2. Loose bodies in the radiocarpal compartment. Modified Barium Swallow 08/24/24 14:17 IMPRESSION: Minimal pharyngeal dysphagia with trace shallow laryngeal penetration without aspiration. Please correlate with speech pathologist findings and specific feeding recommendations. Chest/Abdomen/Pelvis CT 08/27/24 09:37 IMPRESSION: 1. Mild atelectasis in the lungs. Lumbar Puncture Fluoroscopy 08/27/24 15:40 IMPRESSION: 1. Successful fluoro-guided lumbar puncture. Labs Labs: Laboratory Tests 08/29/24 05:01 08/29/24 05:01 Calcium 11.0 H Magnesium 2.3 Total Bilirubin 0.7 AST 23 ALT 10 Alkaline Phosphatase 82 Total Protein 7.0 Albumin 3.4 L Microbiology 08/27/24 15:20 Cerebral Spinal Fluid Fungal Culture and Stain - Preliminary 08/27/24 15:20 Cerebral Spinal Fluid Gram Stain - Final 08/27/24 15:20 Cerebral Spinal Fluid CSF Culture - Preliminary
--- NOTE | 2024-08-29 16:32 | P.PNIM_ITS ---
Progress Note: A&P Assessment and Plan (1) Confusion: Code(s): R41.0 - Disorientation, unspecified Status: Acute Assessment and Plan: Patient with increasing altered mental status since admission, patient slow to responding, able follow simple commands, staring into space Spoke with Dr. Mack over the phone with recommendations for MMA, TSH, T3, T4, B12 and folate, follow-up outpatient to 3 weeks for Alzheimer's workup EEG 08/27 showing abnormal EEG due to presence of diffuse background slowing suggestive of generalized encephalopathy Such as may be seen with bihemispheric lesions or metabolic encephalopathy. No focal or paroxysmal epileptiform abnormalities were seen. ABG within normal limits MRI shows moderate nonspecific cerebral white matter disease and pontine disease, which likely represents chronic small vessel ischemic disease, stable from 05/26/2022. Gabapentin, allopurinol and narcotic medications held Was on Fioricet prn but may take this more regularly. Confusion appears to be a mix possible dementia hospital-acquired hypoactive delirium and may be psychiatric issues Hypercalcemia noted. Started on IV fluids as BRADY also worsening. Hypercalcemia better today Neurology following Ammonia level negative. TSH normal. VitD deficiency noted. B12 low end of normal at 303. B12 added. Spinal tap performed 08/27/2024. Negative for bacterial. Viral etiology still possible. On acyclovir renally dose Consider related to uremia and/or hypercalcemia and/or being off Fiorcet Speech therapy note reviewed. Adjust diet Follow up on HSV PCR from the CSF (2) UTI (urinary tract infection): Qualifiers: Hematuria presence: without hematuria Urinary tract infection type: site unspecified Qualified Code(s): N39.0 - Urinary tract infection, site not specified Code(s): N39.0 - Urinary tract infection, site not specified Status: Acute Assessment and Plan: UA is consistent with UTI. UCx collected. Rocephin started. BCx negative. UCx grew Citrobacter that was essentially odonnell-sensitive. Completed Rocephin x 3 days . Changed to Cefepime then Bactrim to complete a course. Off abx currently (3) Acute respiratory failure with hypoxia: Code(s): J96.01 - Acute respiratory failure with hypoxia Status: Acute Assessment and Plan: * patient is not on any baseline oxygen during the day however is requiring 2-4 L nasal cannula now due to hypoxia in the ER with oxygen saturation of 87% on room air. * CXR showing airspace opacities in the lower lung zones. BNP 480. * respiratory panel was negative for influenza a and B, RSV, COVID * ABG showed normal pH of 7.366, pCO2 46.2, PO2 58.7, bicarb 25.9 * patient was started on Rocephin and azithromycin while in the ED * white blood cell count was normal at 8.6, she was afebrile * D-dimer mildly elevated but V/Q scan low probability * EKG showing sinus rhythm with a rate of 66, QTC 423 * CT chest 08/27 showing mild atelectasis Remains on 3L O2. Wean o2 as tolerated. (4) CHF (congestive heart failure), NYHA class I: Qualifiers: Congestive heart failure type: unspecified Qualified Code(s): I50.9 - Heart failure, unspecified Code(s): I50.9 - Heart failure, unspecified Status: Acute Assessment and Plan: * echocardiogram from 12/30/2021 showed normal LV systolic function with an estimated EF of 65-70%, grade 1 diastolic dysfunction. * Chest x-ray reporting airspace opacities in the lower lung zones likely atelectasis. After reviewing the chest x-ray myself and comparing it to a previous chest x-ray patient does appear to have pulmonary edema * proBNP ordered * a one time dose of 40 mg of IV Lasix ordered-- Will hold off on further diuresis considering renal function * consider nephrology consult if requiring further diuresis * echocardiogram EF 65-70% Lasix on hold. 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 Code(s): E11.9 - Type 2 diabetes mellitus without complications Status: Chronic Assessment and Plan: * Blood sugars ranging 201-260 * Hgb A1C 8.4 on 05/26/2022 * repeat hemoglobin A1c ordered * Accu checks AC/HS * high-dose SSI ordered * hypoglycemic protocol in place * Diabetic diet ordered * hold Farxiga and mealtime replacement insulin * hold Lantus for now considering reported blood sugar a 53, will reassess in the morning 08/19- BS had been high today- 380's * -order regular insulin x 1 and recheck * - continue high dose SS and hypoglycemia [protocol * -will add Lantus 10 units and monitor as had been stable * -if continues to be elevated- will add base meal insulin 08/20 increased Lantus 08/22 Lantus increased and increase and mealtime insulin 08/23 Lantus increased and increase and mealtime insulin 08/24 Lantus increased and increase and mealtime insulin Glucsoe 165 this morning. Glucose reasonably well controlled. Follow (6) Chronic kidney disease, stage IV (severe): Code(s): N18.4 - Chronic kidney disease, stage 4 (severe) Status: Chronic Assessment and Plan: * creatinine 2.9, EGFR 16 * baseline creatinine 2.10-2.60, baseline EGFR 18-23 Cr up to 3.3 so diuretics stopped. On IV fluids. Cr trending down. Follow (7) Hypertension: Code(s): I10 - Essential (primary) hypertension Status: Chronic Assessment and Plan: Patient's blood pressure was reviewed on 08/29 Blood pressure remains well controlled. Will continue to follow (8) Obstructive sleep apnea on CPAP: Code(s): G47.33 - Obstructive sleep apnea (adult) (pediatric); Z99.89 - Dependence on other enabling machines and devices Status: Chronic Assessment and Plan: Patient does not wear CPAP but only wears 2L of oxygen at night only ABG as above (9) Hypothyroidism: Qualifiers: Hypothyroidism type: acquired Qualified Code(s): E03.9 - Hypothyroidism , unspecified Code(s): E03.9 - Hypothyroidism, unspecified Status: Chronic Assessment and Plan: TSh normal. Continue Synthroid (10) Elevated d-dimer: Code(s): R79.89 - Other specified abnormal findings of blood chemistry Status: Acute Assessment and Plan: As above. Check LE venous dopplers. (11) Radial styloid fracture: Qualifiers: Encounter type: initial encounter Fracture alignment: nondisplaced Fracture type: closed Laterality: right Qualified Code(s): S52.514A - Nondisplaced fracture of right radial styloid process, initial encounter for closed fracture Code(s): S52.513A - Displaced fracture of unspecified radial styloid process, initial encounter for closed fracture Status: Acute Assessment and Plan: Right subacute stylod fx. Orthopedics consulted Brace for support Okay for range of motion Platform walker weight-bearing through elbow Brace for 4-6 weeks and follow-up outpatient clinic (12) Hyperparathyroidism: Code(s): E21.3 - Hyperparathyroidism, unspecified Status: Acute Assessment and Plan: iPTH elevated which explains the hypercalcemia. Calcium level better with IV fluids. Follow Plan DVT prophylaxis - Lovenox Code status - full Subjective Date/time seen: 08/29/24 16:32 Interval history: 74yo female with CHF, CKD, chronic resp failure on home O2, DM, ABDIAZIZ and HTN here for weakness and low BP. Assuming care. Chart reviewed. Patient is alert. She regards the provider but is essentially nonverbal. She was up to the chair today. Review of Systems Review of Systems: ROS unobtainable: Yes unobtainable due to medical condition Exam Narrative: AF 97.8 153/76 95 20 90% 3L Gen - NARD Chest - lungs clear anteriorly and in the flanks. CV - RRR S1/S2 Abd - Soft, obese, No apparent tenderness. +BS Ext - trace pedal edema, 2+ DP. Right wrist in soft cast. Neuro - awake, alert, regards at times. mumbles words at times but says 'okay' clearly. No clonus. Equivical Babinski. tremulous during exam. Psych - difficult to assess Skin - Warm and dry Objective Data Vital Signs Vital Signs: Vital Signs - 24 hr 08/28/24 20:03 08/28/24 20:03 08/28/24 20:00 Temperature Pulse Rate 103 H Respiratory Rate 20 Blood Pressure Pulse Oximetry 93 94 Oxygen Delivery Nasal Cannula Nasal Cannula Oxygen Flow Rate 3 3 08/28/24 21:20 08/29/24 01:41 08/28/24 20:11 Temperature 97.7 F Pulse Rate 104 H 95 105 H Respiratory Rate 20 20 20 Blood Pressure 151/55 H Pulse Oximetry 95 Oxygen Delivery Oxygen Flow Rate 08/29/24 01:50 08/29/24 06:00 08/29/24 07:54 Temperature 97.9 F Pulse Rate 97 95 92 Respiratory Rate 20 20 20 Blood Pressure 159/90 H Pulse Oximetry 97 Oxygen Delivery Oxygen Flow Rate 08/29/24 07:55 08/29/24 08:03 08/29/24 09:41 Temperature Pulse Rate 88 Respiratory Rate 20 Blood Pressure Pulse Oximetry 91 91 Oxygen Delivery Nasal Cannula Nasal Cannula Oxygen Flow Rate 3 3 08/29/24 14:05 08/29/24 14:11 08/29/24 14:18 Temperature 97.8 F Pulse Rate 101 H 93 95 Respiratory Rate 19 20 20 Blood Pressure 153/76 H Pulse Oximetry 92 Oxygen Delivery Oxygen Flow Rate 08/29/24 14:10 Temperature Pulse Rate Respiratory Rate Blood Pressure Pulse Oximetry 90 Oxygen Delivery Nasal Cannula Oxygen Flow Rate 3 Intake/Output Intake/Output: Intake & Output 08/26/24 08/27/24 08/28/24 08/29/24 23:59 23:59 23:59 23:59 Intake Total 1597.5 2860 1340 Output Total 950 1200 400 Balance 647.5 1660 940 Meds/Results Medications: Active Medications Generic Name Dose Route Start Last Admin Trade Name Freq PRN Reason Stop Dose Admin Acetaminophen 650 mg 08/17/24 16:39 08/28/24 13:47 Acetaminophen 325 Mg Tablet PO 650 mg Q4H PRN Administration Mild Pain (1-3) or Fever Albuterol/Ipratropium 3 ml 08/29/24 14:00 08/29/24 14:11 Ipratropium 0.5 Mg/Albuterol Sulfate 2.5 Mg Ampul.Neb 3 Ml INHALATION 3 ml [id number] KAELA Administration Allopurinol 300 mg 08/18/24 09:00 08/22/24 09:58 Allopurinol 300 Mg Tablet PO 300 mg DAILY KAELA Administration Amitriptyline HCl 10 mg 08/17/24 21:00 08/24/24 21:24 Amitriptyline Hcl 10 Mg Tablet PO 10 mg QHS KAELA Administration Aspirin 81 mg 08/18/24 09:00 08/29/24 09:30 Aspirin 81 Mg Enteric Tablet PO 81 mg QAM KAELA Administration Atorvastatin Calcium 10 mg 08/17/24 21:00 08/28/24 20:34 Atorvastatin 10 Mg Tablet PO 10 mg HS KAELA Administration Benzonatate 100 mg 08/17/24 20:42 08/26/24 10:07 Benzonatate 100 Mg Capsule PO 100 mg TID PRN Administration Cough Cyanocobalamin 1,000 mcg 08/27/24 12:35 08/29/24 09:30 Cyanocobalamin Inj 1,000 Mcg/Ml Vial IM 1,000 mcg DAILY KAELA Administration Dextrose 12.5 gm 08/17/24 17:18 Dextrose 50% 25 Gm/50 Ml Syringe IV PUSH PRN PRN Hypoglycemia Protocol Empagliflozin 10 mg 08/24/24 09:00 08/29/24 09:30 Empagliflozin 10 Mg Tablet BY MOUTH 10 mg DAILY KAELA Administration Enoxaparin Sodium 40 mg 08/23/24 09:00 08/29/24 09:30 Enoxaparin 40 Mg/0.4 Ml Syringe SUB-Q 40 mg DAILY KAELA Administration Escitalopram Oxalate 20 mg 08/18/24 09:00 08/29/24 09:30 Escitalopram Oxalate 10 Mg Tablet PO 20 mg DAILY KAELA Administration Fluticasone Propionate 2 spray 08/18/24 09:00 08/29/24 09:31 Fluticasone Propionate 0.05% Na Spr 16 Gm Btl (*Bkc) NASAL 2 spray DAILY KAELA Administration Furosemide 40 mg 08/18/24 09:00 Furosemide Inj 40 Mg/4 Ml Vial IV PUSH BID KAELA Furosemide 80 mg 08/23/24 15:00 08/27/24 09:15 Furosemide 80 Mg Tablet PO Not Given BID@0800,1400 KAELA Gabapentin 300 mg 08/17/24 21:00 08/21/24 20:30 Gabapentin 300 Mg Capsule PO 300 mg QHS KAELA Administration Glucagon 1 mg 08/17/24 17:18 Glucagon For Inj 1 Mg Vial IM PRN PRN Hypoglycemia Protocol Glucose 15 gm 08/17/24 17:18 Glucose Oral Gel 15 Gm Of Glucse In 37.5 Gm Tube PO PRN PRN Hypoglycemia Protocol Dextrose 1,000 mls @ 100 mls/hr 08/17/24 17:18 Dextrose 5% 1,000 Ml IVPB PRN PRN Hypoglycemia Protocol Sodium Chloride 1,000 mls @ 75 mls/hr 08/27/24 09:50 08/29/24 12:38 Normal Saline Iv IV CONT 75 mls/hr .[id number] KAELA Administration Acyclovir Sodium 1,375 mg/ 277.5 mls @ 250 mls/hr 08/27/24 17:00 08/28/24 17:23 Dextrose IVPB 250 mls/hr Q24H KAELA Administration Insulin Aspart 2 - 4 units 08/17/24 21:00 08/28/24 20:40 Insulin Aspart (*Bkc) 100 Units/Ml SUB-Q Not Given HS [facility] Protocol Insulin Aspart 2 - 5 units 08/24/24 17:00 08/29/24 12:37 Insulin Aspart (*Bkc) 100 Units/Ml SUB-Q 3 units TIDWM KAELA Administration Protocol Insulin Aspart 15 units 08/26/24 12:00 08/29/24 12:37 Insulin Aspart (*Bkc) 100 Units/Ml SUB-Q 15 units TIDWM KAELA Administration Insulin Glargine 45 units 08/26/24 21:00 08/28/24 20:34 Insulin Glargine (*Bkc) 100 Units/Ml SUB-Q 45 units HS KAELA Administration Levothyroxine Sodium 50 mcg 08/18/24 06:30 08/29/24 06:03 Levothyroxine Sodium 50 Mcg Tablet PO 50 mcg DAILY@0630 KAELA Administration Metoprolol Succinate 25 mg 08/21/24 09:00 08/29/24 09:30 Metoprolol Succinate Ext Rel 25 Mg Tabcr PO 25 mg QAM KAELA Administration Ondansetron HCl 4 mg 08/17/24 17:17 Ondansetron Inj 4 Mg/2 Ml Vial IV PUSH Q6H PRN Nausea And Vomiting Pantoprazole Sodium 40 mg 08/18/24 09:00 08/29/24 09:30 Pantoprazole 40 Mg Tablet PO 40 mg QAM [facility] Administration Sodium Chloride 2 spray 08/17/24 20:42 08/27/24 09:18 Saline 0.65% Sha Soln 44 Ml Btl NASAL 2 spray QID PRN Administration nasal congestion/dryness Radiology Results: ITS Impressions Shoulder X-Ray 08/18/24 15:56 IMPRESSION: Osteopenia Head CT 08/20/24 09:56 IMPRESSION: 1. Stable moderate nonspecific cerebral white matter disease, which likely represents chronic small vessel ischemic disease. Pulmonary Perfusion Imaging 08/20/24 12:15 IMPRESSION: 1. Low probability for pulmonary embolism. Brain MRI 08/22/24 16:06 IMPRESSION: 1. Moderate nonspecific cerebral white matter disease and pontine disease, which likely represents chronic small vessel ischemic disease, stable from 05/26/2022. Chest X-Ray 08/22/24 18:38 IMPRESSION: Moderate interstitial edema. Subsegmental bibasilar atelectasis/consolidation. Possible small bilateral effusions. Hand X-Ray 08/23/24 15:26 IMPRESSION: Possible fracture in the distal radius. Clinical correlation and proper images are advised. Slight narrowing of the proximal and distal interphalangeal joints. Forearm X-Ray 08/24/24 11:01 IMPRESSION: 1. No fracture identified. 2. Loose bodies in the radiocarpal compartment. Modified Barium Swallow 08/24/24 14:17 IMPRESSION: Minimal pharyngeal dysphagia with trace shallow laryngeal penetration without aspiration. Please correlate with speech pathologist findings and specific feeding recommendations. Chest/Abdomen/Pelvis CT 08/27/24 09:37 IMPRESSION: 1. Mild atelectasis in the lungs. Lumbar Puncture Fluoroscopy 08/27/24 15:40 IMPRESSION: 1. Successful fluoro-guided lumbar puncture. Labs Labs: Laboratory Results - last 24 hr 08/28/24 08/28/24 08/29/24 16:56 20:36 05:01 WBC 6.7 RBC 3.87 L Hgb 11.5 L Hct 37.8 MCV 97.7 MCH 29.7 MCHC 30.4 L RDW 16.4 H Plt Count 331 MPV 10.1 Immature Gran % (Auto) 0.4 Neut % (Auto) 51.9 Lymph % (Auto) 26.2 [place] % (Auto) 12.4 H Eos % (Auto) 8.2 H Baso % (Auto) 0.9 Lymph # (Auto) 1.76 [place] # (Auto) 0.8 H Eos # (Auto) 0.6 H Baso # (Auto) 0.1 Abs Immat Gran (auto) 0.03 Absolute Neuts (auto) 3.5 Absolute Nucleated RBC 0.000 Nucleated RBC % 0.0 Sodium 135 L Potassium 4.1 Chloride 102 Carbon Dioxide 28 Anion Gap 5 BUN 56 H Creatinine 2.80 H Estim Creat Clear Calc 23 Estimated GFR 17 L Glucose 165 H POC Capillary Glucose 233 H 175 H Calcium 11.0 H Magnesium 2.3 Total Bilirubin 0.7 AST 23 ALT 10 Alkaline Phosphatase 82 Total Protein 7.0 Albumin 3.4 L 08/29/24 08/29/24 08:34 12:01 WBC RBC Hgb Hct MCV MCH MCHC RDW Plt Count MPV Immature Gran % (Auto) Neut % (Auto) Lymph % (Auto) [place] % (Auto) Eos % (Auto) Baso % (Auto) Lymph # (Auto) [place] # (Auto) Eos # (Auto) Baso # (Auto) Abs Immat Gran (auto) Absolute Neuts (auto) Absolute Nucleated RBC Nucleated RBC % Sodium Potassium Chloride Carbon Dioxide Anion Gap BUN Creatinine Estim Creat Clear Calc Estimated GFR Glucose POC Capillary Glucose 181 H 255 H Calcium Magnesium Total Bilirubin AST ALT Alkaline Phosphatase Total Protein Albumin
[2024-08-29 17:21] LABS: Glucose Point of Care 228 mg/dl (65-105)
[2024-08-29] MEDS: ACYCLOVIR SODIUM IVPB (17:58)
[2024-08-29] MEDS: WATER IVPB (17:58)
[2024-08-29] MEDS: DEXTROSE 5% IVPB (17:58)
[2024-08-29] MEDS: INSULIN GLARGINE (*BKC) 100 UNITS/ML 45 UNITS SUB-Q (20:20)
[2024-08-29] MEDS: ATORVASTATIN 10 MG TABLET PO (20:20)
[2024-08-29 20:28] LABS: Glucose Point of Care 266 mg/dl (65-105)
[2024-08-30] VITALS (15 sets, daily range): BP systolic 138–151; BP diastolic 51–68; PULSE 87–100; RESP 18–20; TEMP 36.6; O2SAT 89–97
[2024-08-30] MEDS: LEVOTHYROXINE SODIUM 50 MCG TABLET PO (04:57)
[2024-08-30] MEDS: SODIUM CHLORIDE 0.9% IV 1,000 ML 75 ML IV CONT (04:57)
[2024-08-30 06:02] LABS: Basophils Absolute Auto 0.1 K/mm3 (0.0-0.1); Basophils Percent Auto 0.9 % (0.2-1.2); Eosinophils Absolute Auto 0.5 K/mm3 (0-0.3); Hematocrit 38.2 % (37.0-47.0); Hemoglobin 11.3 g/dL (12.0-15.0); Immature Granulocyte Absolute 0.01 K/mm3 (0.00-0.031); Immature Granulocyte Percent A 0.2 % (0-0.5); Lymphocytes Absolute Auto 1.91 K/mm3 (0.9-3.2); Mean Corpuscular HGB Conc 29.6 g/dl (32-36); Mean Corpuscular Hemoglobin 29.3 pg (26-34); Monocytes Absolute Auto 0.9 K/mm3 (0.1-0.6); Monocytes Percent Auto 13.5 % (2.6-8.5); Neutrophils Percent Auto 47.4 % (45.5-73.1); Platelet Count Result 341 k/mm3 (150-375); Red Blood Count 3.86 M/mm3 (4.2-5.4); Red Cell Distribution Width 16.4 % (11.5-14.5); White Blood Count 6.4 K/mm3 (4.5-10.0)
[2024-08-30 06:23] LABS: Alanine Aminotransferase 10 U/L (6-35); Albumin Level 3.4 g/dL (3.5-5.1); Alkaline Phosphatase 85 U/L (38-126); Anion Gap 7 mmol/L (4-12); Aspartate Amino Transferase 20 U/L (14-36); Bilirubin,Total 0.4 mg/dL (0.2-1.3); Blood Urea Nitrogen 44 mg/dL (7-17); Calcium 11.2 mg/dL (8.4-10.2); Carbon Dioxide 28 mmol/L (22-30); Chloride 105 mmol/L (98-107); Estimated CRCL calculation 28 ml/min; Estimated Glomerular Filt Rate 21; Glucose 173 mg/dL (65-110); Magnesium 2.3 mg/dL (1.6-2.3); Phosphorus 3.4 mg/dL (2.5-4.5); Sodium 140 mmol/L (137-145)
[2024-08-30 06:48] LABS: Platelet Estimate Adequate (Adequate); Schistocytes None Seen
[2024-08-30] MEDS: IPRATROPIUM 0.5 MG/ALBUTEROL SULFATE 2.5 MG AMPUL.NEB 3 ML INHALATION ×3 (08:15→21:12)
[2024-08-30 08:37] LABS: Glucose Point of Care 197 mg/dl (65-105)
[2024-08-30] MEDS: FLUTICASONE PROPIONATE 0.05% NA SPR 16 GM BTL (*BKC) 2 SPRAY NASAL (08:54)
[2024-08-30] MEDS: ASPIRIN 81 MG ENTERIC TABLET PO (08:55)
[2024-08-30] MEDS: ENOXAPARIN 40 MG/0.4 ML SYRINGE SUB-Q (08:55)
[2024-08-30] MEDS: EMPAGLIFLOZIN 10 MG TABLET BY MOUTH (08:55)
[2024-08-30] MEDS: ESCITALOPRAM OXALATE 10 MG TABLET 20 MG PO (08:55)
[2024-08-30] MEDS: METOPROLOL SUCCINATE EXT REL 25 MG TABCR PO (08:55)
[2024-08-30] MEDS: CYANOCOBALAMIN INJ 1,000 MCG/ML VIAL 1000 MCG IM (08:55)
[2024-08-30] MEDS: INSULIN ASPART (*BKC) 100 UNITS/ML 15 UNITS SUB-Q ×3 (08:55→17:05)
[2024-08-30] MEDS: PANTOPRAZOLE 40 MG TABLET PO (08:55)
[2024-08-30 12:12] LABS: Glucose Point of Care 187 mg/dl (65-105)
--- NOTE | 2024-08-30 14:43 | P.PNNP_ITS ---
Subjective Date/time seen: 08/30/24 14:43 Objective Data Vital Signs Vital Signs: Vital Signs Temp Pulse Resp BP Pulse Ox O2 Del Method O2 Flow Rate 08/30/24 14:06 91 20 08/30/24 14:00 87 20 08/30/24 13:58 97.8 F 99 18 149/60 H 92 08/30/24 13:10 97 Room Air 08/30/24 09:37 92 Nasal Cannula 3 08/30/24 09:00 96 Nasal Cannula 3 08/30/24 08:55 92 08/30/24 08:20 92 20 08/30/24 08:12 94 18 08/30/24 08:12 96 Nasal Cannula 3 08/30/24 05:46 97.9 F 95 20 151/68 H 97 08/29/24 20:00 92 Nasal Cannula 3 08/29/24 20:34 97.2 F L 100 22 H 149/69 H 94 08/29/24 20:04 106 H 20 08/29/24 20:04 94 Nasal Cannula 3 Intake/Output Intake/Output: Intake & Output 08/27/24 08/28/24 08/29/24 08/30/24 23:59 23:59 23:59 23:59 Intake Total 1597.5 3137.5 2667.5 2090 Output Total 950 1200 1200 1400 Balance 647.5 1937.5 1467.5 690 Meds/Results Medications: Active Medications Generic Name Dose Route Start Last Admin Trade Name Freq PRN Reason Stop Dose Admin Acetaminophen 650 mg 08/17/24 16:39 08/28/24 13:47 Acetaminophen 325 Mg Tablet PO 650 mg Q4H PRN Administration Mild Pain (1-3) or Fever Albuterol/Ipratropium 3 ml 08/29/24 14:00 08/30/24 14:00 Ipratropium 0.5 Mg/Albuterol Sulfate 2.5 Mg Ampul.Neb 3 Ml INHALATION 3 ml [id number] KAELA Administration Allopurinol 300 mg 08/18/24 09:00 08/22/24 09:58 Allopurinol 300 Mg Tablet PO 300 mg DAILY KAELA Administration Amitriptyline HCl 10 mg 08/17/24 21:00 08/24/24 21:24 Amitriptyline Hcl 10 Mg Tablet PO 10 mg QHS KAELA Administration Aspirin 81 mg 08/18/24 09:00 08/30/24 08:55 Aspirin 81 Mg Enteric Tablet PO 81 mg QAM KAELA Administration Atorvastatin Calcium 10 mg 08/17/24 21:00 08/29/24 20:20 Atorvastatin 10 Mg Tablet PO 10 mg HS KAELA Administration Benzonatate 100 mg 08/17/24 20:42 08/26/24 10:07 Benzonatate 100 Mg Capsule PO 100 mg TID PRN Administration Cough Cyanocobalamin 1,000 mcg 08/27/24 12:35 08/30/24 08:55 Cyanocobalamin Inj 1,000 Mcg/Ml Vial IM 1,000 mcg DAILY KAELA Administration Dextrose 12.5 gm 08/17/24 17:18 Dextrose 50% 25 Gm/50 Ml Syringe IV PUSH PRN PRN Hypoglycemia Protocol Empagliflozin 10 mg 08/24/24 09:00 08/30/24 08:55 Empagliflozin 10 Mg Tablet BY MOUTH 10 mg DAILY KAELA Administration Enoxaparin Sodium 40 mg 08/23/24 09:00 08/30/24 08:55 Enoxaparin 40 Mg/0.4 Ml Syringe SUB-Q 40 mg DAILY KAELA Administration Escitalopram Oxalate 20 mg 08/18/24 09:00 08/30/24 08:55 Escitalopram Oxalate 10 Mg Tablet PO 20 mg DAILY KAELA Administration Fluticasone Propionate 2 spray 08/18/24 09:00 08/30/24 08:54 Fluticasone Propionate 0.05% Na Spr 16 Gm Btl (*Bkc) NASAL 2 spray DAILY KAELA Administration Furosemide 40 mg 08/18/24 09:00 Furosemide Inj 40 Mg/4 Ml Vial IV PUSH BID KAELA Furosemide 80 mg 08/23/24 15:00 08/27/24 09:15 Furosemide 80 Mg Tablet PO Not Given BID@0800,1400 KAELA Gabapentin 300 mg 08/17/24 21:00 08/21/24 20:30 Gabapentin 300 Mg Capsule PO 300 mg QHS KAELA Administration Glucagon 1 mg 08/17/24 17:18 Glucagon For Inj 1 Mg Vial IM PRN PRN Hypoglycemia Protocol Glucose 15 gm 08/17/24 17:18 Glucose Oral Gel 15 Gm Of Glucse In 37.5 Gm Tube PO PRN PRN Hypoglycemia Protocol Dextrose 1,000 mls @ 100 mls/hr 08/17/24 17:18 Dextrose 5% 1,000 Ml IVPB PRN PRN Hypoglycemia Protocol Acyclovir Sodium 1,375 mg/ 277.5 mls @ 250 mls/hr 08/27/24 17:00 08/30/24 17:04 Dextrose IVPB 250 mls/hr Q24H KAELA Administration Insulin Aspart 2 - 4 units 08/17/24 21:00 08/29/24 20:21 Insulin Aspart (*Bkc) 100 Units/Ml SUB-Q 2 units HS KAELA Administration Protocol Insulin Aspart 2 - 5 units 08/24/24 17:00 08/30/24 17:07 Insulin Aspart (*Bkc) 100 Units/Ml SUB-Q Not Given TIDWM KAELA Protocol Insulin Aspart 15 units 08/26/24 12:00 08/30/24 17:05 Insulin Aspart (*Bkc) 100 Units/Ml SUB-Q 15 units TIDWM KAELA Administration Insulin Glargine 45 units 08/26/24 21:00 08/29/24 20:20 Insulin Glargine (*Bkc) 100 Units/Ml SUB-Q 45 units HS KAELA Administration Levothyroxine Sodium 50 mcg 08/18/24 06:30 08/30/24 04:57 Levothyroxine Sodium 50 Mcg Tablet PO 50 mcg DAILY@0630 KAELA Administration Metoprolol Succinate 25 mg 08/21/24 09:00 08/30/24 08:55 Metoprolol Succinate Ext Rel 25 Mg Tabcr PO 25 mg QAM KAELA Administration Ondansetron HCl 4 mg 08/17/24 17:17 Ondansetron Inj 4 Mg/2 Ml Vial IV PUSH Q6H PRN Nausea And Vomiting Pantoprazole Sodium 40 mg 08/18/24 09:00 08/30/24 08:55 Pantoprazole 40 Mg Tablet PO 40 mg QAM KAELA Administration Sodium Chloride 2 spray 08/17/24 20:42 08/27/24 09:18 Saline 0.65% Sha Soln 44 Ml Btl NASAL 2 spray QID PRN Administration nasal congestion/dryness Radiology Results: ITS Impressions Shoulder X-Ray 08/18/24 15:56 IMPRESSION: Osteopenia Head CT 08/20/24 09:56 IMPRESSION: 1. Stable moderate nonspecific cerebral white matter disease, which likely represents chronic small vessel ischemic disease. Pulmonary Perfusion Imaging 08/20/24 12:15 IMPRESSION: 1. Low probability for pulmonary embolism. Brain MRI 08/22/24 16:06 IMPRESSION: 1. Moderate nonspecific cerebral white matter disease and pontine disease, which likely represents chronic small vessel ischemic disease, stable from 05/26/2022. Chest X-Ray 08/22/24 18:38 IMPRESSION: Moderate interstitial edema. Subsegmental bibasilar atelectasis/consolidation. Possible small bilateral effusions. Hand X-Ray 08/23/24 15:26 IMPRESSION: Possible fracture in the distal radius. Clinical correlation and proper images are advised. Slight narrowing of the proximal and distal interphalangeal joints. Forearm X-Ray 08/24/24 11:01 IMPRESSION: 1. No fracture identified. 2. Loose bodies in the radiocarpal compartment. Modified Barium Swallow 08/24/24 14:17 IMPRESSION: Minimal pharyngeal dysphagia with trace shallow laryngeal penetration without aspiration. Please correlate with speech pathologist f indings and specific feeding recommendations. Chest/Abdomen/Pelvis CT 08/27/24 09:37 IMPRESSION: 1. Mild atelectasis in the lungs. Lumbar Puncture Fluoroscopy 08/27/24 15:40 IMPRESSION: 1. Successful fluoro-guided lumbar puncture. Venous Doppler Study 08/29/24 23:29 IMPRESSION: 1. No deep venous thrombosis within the right lower extremity from the level of the mid femoral vein centrally to the right common femoral vein, as detailed above. Labs Labs: Laboratory Tests 08/30/24 05:24 08/30/24 05:24 Calcium 11.2 H Phosphorus 3.4 Magnesium 2.3 Total Bilirubin 0.4 AST 20 ALT 10 Alkaline Phosphatase 85 Total Protein 7.0 Albumin 3.4 L Microbiology 08/27/24 15:20 Cerebral Spinal Fluid Fungal Culture and Stain - Preliminary
--- NOTE | 2024-08-30 16:39 | P.PNIM_ITS ---
Progress Note: A&P Assessment and Plan (1) Confusion: Code(s): R41.0 - Disorientation, unspecified Status: Acute Assessment and Plan: Patient with increasing altered mental status since admission. Patient slow to respond, able follow simple commands, staring into space. Spoke with Dr. Mack over the phone with recommendations for MMA, TSH, T3, T4, B12 and folate, follow-up outpatient to 3 weeks for Alzheimer's workup EEG 08/27 showing abnormal EEG due to presence of diffuse background slowing suggestive of generalized encephalopathy Such as may be seen with bihemispheric lesions or metabolic encephalopathy. No focal or paroxysmal epileptiform abnormalities were seen. ABG within normal limits MRI shows moderate nonspecific cerebral white matter disease and pontine disease, which likely represents chronic small vessel ischemic disease, stable from 05/26/2022. Gabapentin, allopurinol and narcotic medications held Was on Fioricet prn but may take this more regularly so consider withdrawal Confusion appears to be a mix possible dementia hospital-acquired hypoactive delirium and may be psychiatric issues Hypercalcemia noted. Started on IV fluids as BRADY also worsening. Hypercalcemia about the same today Neurology following Ammonia level negative. TSH normal. VitD deficiency noted. B12 low end of normal at 303. B12 replaced LP performed 08/27/2024. Negative for bacterial. Viral etiology still possible. On acyclovir renally dosed Consider related to uremia and/or hypercalcemia and/or being off Fiorcet Speech therapy note reviewed. Diet adjusted Follow up on HSV PCR from the CSF (2) UTI (urinary tract infection): Qualifiers: Hematuria presence: without hematuria Urinary tract infection type: site unspecified Qualified Code(s): N39.0 - Urinary tract infection, site not specified Code(s): N39.0 - Urinary tract infection, site not specified Status: Acute Assessment and Plan: UA is consistent with UTI. UCx collected. Rocephin started. BCx negative. UCx grew Citrobacter that was essentially odonnell-sensitive. Rocephin x 3 days then changed to Cefepime then Bactrim to complete a course. Off abx currently (3) Acute respiratory failure with hypoxia: Code(s): J96.01 - Acute respiratory failure with hypoxia Status: Acute Assessment and Plan: Patient is not on any baseline oxygen during the day however is requiring 2-4 L nasal cannula now due to hypoxia in the ER with oxygen saturation of 87% on room air. CXR showing airspace opacities in the lower lung zones. BNP 480. Respiratory panel was negative for influenza a and B, RSV, COVID ABG showed normal pH of 7.366, pCO2 46.2, PO2 58.7, bicarb 25.9 on 2L Patient was started on abx while in the ED WBC count was normal at 8.6, she was afebrile D-dimer mildly elevated but V/Q scan low probability and LE venous doppler was negative (limited study and could only get right LE) EKG showing sinus rhythm with a rate of 66, QTC 423 CT chest 08/27 showing mild atelectasis Weaned to room air (4) CHF (congestive heart failure), NYHA class I: Qualifiers: Congestive heart failure type: unspecified Qualified Code(s): I50.9 - Heart failure, unspecified Code(s): I50.9 - Heart failure, unspecified Status: Acute Assessment and Plan: Echo from 12/2021 showed normal LV systolic function (EF of 65-70%), grade 1 diastolic dysfunction. * Chest x-ray reporting airspace opacities in the lower lung zones likely atelectasis. After reviewing the chest x-ray myself and comparing it to a previous chest x-ray patient does appear to have pulmonary edema * proBNP 483 * a one time dose of 40 mg of IV Lasix ordered-- Will hold off on further diuresis considering renal function * consider nephrology consult if requiring further diuresis * echocardiogram EF 65-70% Lasix on hold. (5) Type 2 diabetes mellitus: Qualifiers: Chronic kidney disease stage: stage 3 (moderate) Chronic kidney disease stage 3 subtype: stage 3b (GFR 30-44) Diabetes mellitus complication detail: with chronic kidney disease Diabetes mellitus complication status: with kidney complications Diabetes mellitus [facility] insulin use: with [facility] use Qualified Code(s): E11.22 - Type 2 diabetes mellitus with diabetic chronic kidney disease; N18.32 - Chronic kidney disease, stage 3b; Z79.4 - correction (current) use of insulin Code(s): E11.9 - Type 2 diabetes mellitus without complications Status: Chronic Assessment and Plan: A1c 9.5. The patient's blood glucose was reviewed on 08/30 Glucose remains poorly controlled. Continue AccuCheks covering with sliding scale. Hypoglycemia protocol available as needed. Diabetic diet Continue to monitor. (6) Chronic kidney disease, stage IV (severe): Code(s): N18.4 - Chronic kidney disease, stage 4 (severe) Status: Chronic Assessment and Plan: Creatinine 2.9, EGFR 16 Baseline creatinine 2.10-2.60, baseline EGFR 18-23 Cr up to 3.3 so diuretics stopped. On IV fluids. Cr trending down and at 2.3 Stop IV fluids. Resume lasix tomorrow if able. Follow (7) Hypertension: Code(s): I10 - Essential (primary) hypertension Status: Chronic Assessment and Plan: Patient's blood pressure was reviewed on 08/30 Blood pressure remains well controlled. Will continue to follow (8) Obstructive sleep apnea on CPAP: Code(s): G47.33 - Obstructive sleep apnea (adult) (pediatric); Z99.89 - Dependence on other enabling machines and devices Status: Chronic Assessment and Plan: Patient does not wear CPAP but only wears 2L of oxygen at night only ABG as above Continue O2 at night (9) Hypothyroidism: Qualifiers: Hypothyroidism type: acquired Qualified Code(s): E03.9 - Hypothyroidism, unspecified Code(s): E03.9 - Hypothyroidism, unspecified Status: Chronic Assessment and Plan: TSh normal. Continue Synthroid (10) Elevated d-dimer: Code(s): R79.89 - Other specified abnormal findings of blood chemistry Status: Acute Assessment and Plan: As above. (11) Radial styloid fracture: Qualifiers: Encounter type: initial encounter Fracture alignment: nondisplaced Fracture type: closed Laterality: right Qualified Code(s): S52.514A - Nondis placed fracture of right radial styloid process, initial encounter for closed fracture Code(s): S52.513A - Displaced fracture of unspecified radial styloid process, initial encounter for closed fracture Status: Acute Assessment and Plan: Right subacute stylod fx. Orthopedics consulted Brace for support Okay for range of motion Platform walker weight-bearing through elbow Brace for 4-6 weeks and follow-up outpatient clinic (12) Hyperparathyroidism: Code(s): E21.3 - Hyperparathyroidism, unspecified Status: Acute Assessment and Plan: iPTH elevated which explains the hypercalcemia. Calcium level better with IV fluids. Follow off IV fluids Plan DVT prophylaxis - Lovenox Code status - full Subjective Date/time seen: 08/30/24 16:39 Interval history: 74yo female with CHF, CKD, chronic resp failure on home O2, DM, ABDIAZIZ and HTN here for weakness and low BP. She is doing 'okay'. Slept well. Hx limited still but better. Review of Systems Review of Systems: ROS unobtainable: Yes unobtainable due to mental status Exam Narrative: AF 97.8 149/60 91 20 92% RA Gen - NARD Chest - Clear anteriorly and in the flanks CV - RRR S1/S2 Abd - Soft, obese, No apparent tenderness. +BS Ext - trace pedal edema. Right wrist in soft cast. 2+ DP Neuro - less tremulous. regards. more responsive to questions but has trouble answering. Psych - difficult to assess Skin - Warm and dry Objective Data Vital Signs Vital Signs: Vital Signs - 24 hr 08/29/24 20:04 08/29/24 20:04 08/29/24 20:34 Temperature 97.2 F L Pulse Rate 106 H 100 Respiratory Rate 20 22 H Blood Pressure 149/69 H Pulse Oximetry 94 94 Oxygen Delivery Nasal Cannula Oxygen Flow Rate 3 08/29/24 20:00 08/30/24 05:46 08/30/24 08:12 Temperature 97.9 F Pulse Rate 95 Respiratory Rate 20 Blood Pressure 151/68 H Pulse Oximetry 92 97 96 Oxygen Delivery Nasal Cannula Nasal Cannula Oxygen Flow Rate 3 3 08/30/24 08:12 08/30/24 08:20 08/30/24 08:55 Temperature Pulse Rate 94 92 92 Respiratory Rate 18 20 Blood Pressure Pulse Oximetry Oxygen Delivery Oxygen Flow Rate 08/30/24 09:00 08/30/24 09:37 08/30/24 13:10 Temperature Pulse Rate Respiratory Rate Blood Pressure Pulse Oximetry 96 92 97 Oxygen Delivery Nasal Cannula Nasal Cannula Room Air Oxygen Flow Rate 3 3 08/30/24 13:58 08/30/24 14:00 08/30/24 14:06 Temperature 97.8 F Pulse Rate 99 87 91 Respiratory Rate 18 20 20 Blood Pressure 149/60 H Pulse Oximetry 92 Oxygen Delivery Oxygen Flow Rate Intake/Output Intake/Output: Intake & Output 08/27/24 08/28/24 08/29/24 08/30/24 23:59 23:59 23:59 23:59 Intake Total 1597.5 3137.5 2390 1989 Output Total 950 1200 1200 600 Balance 647.5 1937.5 1190 1390 Meds/Results Medications: Active Medications Generic Name Dose Route Start Last Admin Trade Name Freq PRN Reason Stop Dose Admin Acetaminophen 650 mg 08/17/24 16:39 08/28/24 13:47 Acetaminophen 325 Mg Tablet PO 650 mg Q4H PRN Administration Mild Pain (1-3) or Fever Albuterol/Ipratropium 3 ml 08/29/24 14:00 08/30/24 14:00 Ipratropium 0.5 Mg/Albuterol Sulfate 2.5 Mg Ampul.Neb 3 Ml INHALATION 3 ml [id number] KAELA Administration Allopurinol 300 mg 08/18/24 09:00 08/22/24 09:58 Allopurinol 300 Mg Tablet PO 300 mg DAILY KAELA Administration Amitriptyline HCl 10 mg 08/17/24 21:00 08/24/24 21:24 Amitriptyline Hcl 10 Mg Tablet PO 10 mg QHS KAELA Administration Aspirin 81 mg 08/18/24 09:00 08/30/24 08:55 Aspirin 81 Mg Enteric Tablet PO 81 mg QAM KAELA Administration Atorvastatin Calcium 10 mg 08/17/24 21:00 08/29/24 20:20 Atorvastatin 10 Mg Tablet PO 10 mg HS KAELA Administration Benzonatate 100 mg 08/17/24 20:42 08/26/24 10:07 Benzonatate 100 Mg Capsule PO 100 mg TID PRN Administration Cough Cyanocobalamin 1,000 mcg 08/27/24 12:35 08/30/24 08:55 Cyanocobalamin Inj 1,000 Mcg/Ml Vial IM 1,000 mcg DAILY KAELA Administration Dextrose 12.5 gm 08/17/24 17:18 Dextrose 50% 25 Gm/50 Ml Syringe IV PUSH PRN PRN Hypoglycemia Protocol Empagliflozin 10 mg 08/24/24 09:00 08/30/24 08:55 Empagliflozin 10 Mg Tablet BY MOUTH 10 mg DAILY KAELA Administration Enoxaparin Sodium 40 mg 08/23/24 09:00 08/30/24 08:55 Enoxaparin 40 Mg/0.4 Ml Syringe SUB-Q 40 mg DAILY KAELA Administration Escitalopram Oxalate 20 mg 08/18/24 09:00 08/30/24 08:55 Escitalopram Oxalate 10 Mg Tablet PO 20 mg DAILY KAELA Administration Fluticasone Propionate 2 spray 08/18/24 09:00 08/30/24 08:54 Fluticasone Propionate 0.05% Na Spr 16 Gm Btl (*Bkc) NASAL 2 spray DAILY KAELA Administration Furosemide 40 mg 08/18/24 09:00 Furosemide Inj 40 Mg/4 Ml Vial IV PUSH BID KAELA Furosemide 80 mg 08/23/24 15:00 08/27/24 09:15 Furosemide 80 Mg Tablet PO Not Given BID@0800,1400 KAELA Gabapentin 300 mg 08/17/24 21:00 08/21/24 20:30 Gabapentin 300 Mg Capsule PO 300 mg QHS KAELA Administration Glucagon 1 mg 08/17/24 17:18 Glucagon For Inj 1 Mg Vial IM PRN PRN Hypoglycemia Protocol Glucose 15 gm 08/17/24 17:18 Glucose Oral Gel 15 Gm Of Glucse In 37.5 Gm Tube PO PRN PRN Hypoglycemia Protocol Dextrose 1,000 mls @ 100 mls/hr 08/17/24 17:18 Dextrose 5% 1,000 Ml IVPB PRN PRN Hypoglycemia Protocol Sodium Chloride 1,000 mls @ 75 mls/hr 08/27/24 09:50 08/30/24 04:57 Normal Saline Iv IV CONT 75 mls/hr .[id number] KAELA Administration Acyclovir Sodium 1,375 mg/ 277.5 mls @ 250 mls/hr 08/27/24 17:00 08/29/24 17:58 Dextrose IVPB 250 mls/hr Q24H KAELA Administration Insulin Aspart 2 - 4 units 08/17/24 21:00 08/29/24 20:21 Insulin Aspart (*Bkc) 100 Units/Ml SUB-Q 2 units HS KAELA Administration Protocol Insulin Aspart 2 - 5 units 08/24/24 17:00 08/30/24 12:36 Insulin Aspart (*Bkc) 100 Units/Ml SUB-Q Not Given TIDWM KAELA Protocol Insulin Aspart 15 units 08/26/24 12:00 08/30/24 12:36 Insulin Aspart (*Bkc) 100 Units/Ml SUB-Q 15 units TIDWM KAELA Administration Insulin Glargine 45 units 08/26/24 21:00 08/29/24 20:20 Insulin Glargine (*Bkc) 100 Units/Ml SUB-Q 45 units HS KAELA Administration Levothyroxine Sodium 50 mcg 08/18/24 06:30 08/30/24 04:57 Levothyroxine Sodium 50 Mcg Tablet PO 50 mcg DAILY@0630 KAELA Administration Metoprolol Succinate 25 mg 08/21/24 09:00 08/30/24 08:55 Metoprolol Succinate Ext Rel 25 Mg Tabcr PO 25 mg QAM KAELA Administration Ondansetron HCl 4 mg 08/17/24 17:17 Ondansetron Inj 4 Mg/2 Ml Vial IV PUSH Q6H PRN Nausea And Vomiting Pantoprazole Sodium 40 mg 08/18/24 09:00 08/30/24 08:55 Pantoprazole 40 Mg Tablet PO 40 mg QAM KAELA Administration Sodium Chloride 2 spray 08/17/24 20:42 08/27/24 09:18 Saline 0.65% Sha Soln 44 Ml Btl NASAL 2 spray QID PRN Administration nasal congestion/dryness Radiology Results: ITS Impressions Shoulder X-Ray 08/18/24 15:56 IMPRESSION: Osteopenia Head CT 08/20/24 09:56 IMPRESSION: 1. Stable moderate nonspecific cerebral white matter disease, which likely represents chronic small vessel ischemic disease. Pulmonary Perfusion Imaging 08/20/24 12:15 IMPRESSION: 1. Low probability for pulmonary embolism. Brain MRI 08/22/24 16:06 IMPRESSION: 1. Moderate nonspecific cerebral white matter disease and pontine disease, which likely represents chronic small vessel ischemic disease, stable from 05/26/2022. Chest X-Ray 08/22/24 18:38 IMPRESSION: Moderate interstitial edema. Subsegmental bibasilar atelectasis/consolidation. Possible small bilateral effusions. Hand X-Ray 08/23/24 15:26 IMPRESSION: Possible fracture in the distal radius. Clinical correlation and proper images are advised. Slight narrowing of the proximal and distal interphalangeal joints. Forearm X-Ray 08/24/24 11:01 IMPRESSION: 1. No fracture identified. 2. Loose bodies in the radiocarpal compartment. Modified Barium Swallow 08/24/24 14:17 IMPRESSION: Minimal pharyngeal dysphagia with trace shallow laryngeal penetration without aspiration. Please correlate with speech pathologist findings and specific feeding recommendations. Chest/Abdomen/Pelvis CT 08/27/24 09:37 IMPRESSION: 1. Mild atelectasis in the lungs. Lumbar Puncture Fluoroscopy 08/27/24 15:40 IMPRESSION: 1. Successful fluoro-guided lumbar puncture. Venous Doppler Study 08/29/24 23:29 IMPRESSION: 1. No deep venous thrombosis within the right lower extremity from the level of the mid femoral vein centrally to the right common femoral vein, as detailed above. Labs Labs: Laboratory Results - last 24 hr 08/27/24 08/29/24 08/29/24 15:20 17:18 20:09 WBC RBC Hgb Hct MCV MCH MCHC RDW Plt Count MPV Immature Gran % (Auto) Neut % (Auto) Lymph % (Auto) [place] % (Auto) Eos % (Auto) Baso % (Auto) Lymph # (Auto) [place] # (Auto) Eos # (Auto) Baso # (Auto) Abs Immat Gran (auto) Absolute Neuts (auto) Absolute Nucleated RBC Nucleated RBC % Platelet Estimate Schistocytes Sodium Potassium Chloride Carbon Dioxide Anion Gap BUN Creatinine Estim Creat Clear Calc Estimated GFR Glucose POC Capillary Glucose 228 H 266 H Calcium Phosphorus Magnesium Total Bilirubin AST ALT Alkaline Phosphatase Total Protein Albumin CSF Lactic Acid 21.9 08/30/24 08/30/24 08/30/24 05:24 08:34 12:09 WBC 6.4 RBC 3.86 L Hgb 11.3 L Hct 38.2 MCV 99.0 MCH 29.3 MCHC 29.6 L RDW 16.4 H Plt Count 341 MPV 10.0 Immature Gran % (Auto) 0.2 Neut % (Auto) 47.4 Lymph % (Auto) 30.0 [place] % (Auto) 13.5 H Eos % (Auto) 8.0 H Baso % (Auto) 0.9 Lymph # (Auto) 1.91 [place] # (Auto) 0.9 H Eos # (Auto) 0.5 H Baso # (Auto) 0.1 Abs Immat Gran (auto) 0.01 Absolute Neuts (auto) 3.0 Absolute Nucleated RBC 0.000 Nucleated RBC % 0.0 Platelet Estimate Adequate Schistocytes None seen Sodium 140 Potassium 4.0 Chloride 105 Carbon Dioxide 28 Anion Gap 7 BUN 44 H D Creatinine 2.30 H Estim Creat Clear Calc 28 Estimated GFR 21 L Glucose 173 H POC Capillary Glucose 197 H 187 H Calcium 11.2 H Phosphorus 3.4 Magnesium 2.3 Total Bilirubin 0.4 AST 20 ALT 10 Alkaline Phosphatase 85 Total Protein 7.0 Albumin 3.4 L CSF Lactic Acid
[2024-08-30] MEDS: WATER IVPB (17:04)
[2024-08-30] MEDS: DEXTROSE 5% IVPB (17:04)
[2024-08-30] MEDS: ACYCLOVIR SODIUM IVPB (17:04)
[2024-08-30 17:05] LABS: Glucose Point of Care 190 mg/dl (65-105)
[2024-08-30 20:19] LABS: Glucose Point of Care 177 mg/dl (65-105)
[2024-08-30] MEDS: ATORVASTATIN 10 MG TABLET PO (20:21)
[2024-08-30] MEDS: INSULIN GLARGINE (*BKC) 100 UNITS/ML 45 UNITS SUB-Q (20:21)
[2024-08-30 21:09] LABS: VDRL Quantitative CSF NON-REACTIVE
[2024-08-31] VITALS (13 sets, daily range): BP systolic 141–179; BP diastolic 69–88; PULSE 90–100; RESP 18–20; TEMP 36.3–36.9; O2SAT 92–98; BMI 50.5
[2024-08-31 02:24] LABS: Herpes Simplex Type 1 DNA PCR Not Detected (Not Detected); Herpes Simplex Type 2 DNA PCR Not Detected (Not Detected)
[2024-08-31] MEDS: LEVOTHYROXINE SODIUM 50 MCG TABLET PO (05:35)
[2024-08-31 06:19] LABS: Basophils Percent Auto 0.7 % (0.2-1.2); Eosinophils Absolute Auto 0.5 K/mm3 (0-0.3); Eosinophils Percent Auto 8.1 % (0-4.4); Hematocrit 37.9 % (37.0-47.0); Hemoglobin 11.3 g/dL (12.0-15.0); Immature Granulocyte Absolute 0.02 K/mm3 (0.00-0.031); Immature Granulocyte Percent A 0.3 % (0-0.5); Lymphocytes Absolute Auto 1.88 K/mm3 (0.9-3.2); Lymphocytes Percent Auto 31.9 % (18.3-44.2); Mean Corpuscular HGB Conc 29.8 g/dl (32-36); Mean Corpuscular Hemoglobin 29.4 pg (26-34); Mean Corpuscular Volume 98.7 fl (80-100); Mean Platelet Volume 9.8 fl (7.4-10.4); Monocytes Absolute Auto 0.7 K/mm3 (0.1-0.6); Monocytes Percent Auto 12.6 % (2.6-8.5); Neutrophils Absolute Auto 2.7 K/mm3 (1.3-6.7); Neutrophils Percent Auto 46.4 % (45.5-73.1); Platelet Count Result 337 k/mm3 (150-375); Red Blood Count 3.84 M/mm3 (4.2-5.4); Red Cell Distribution Width 16.6 % (11.5-14.5); White Blood Count 5.9 K/mm3 (4.5-10.0)
[2024-08-31 06:52] LABS: Alanine Aminotransferase 13 U/L (6-35); Albumin Level 3.4 g/dL (3.5-5.1); Alkaline Phosphatase 90 U/L (38-126); Anion Gap 4 mmol/L (4-12); Aspartate Amino Transferase 27 U/L (14-36); Bilirubin,Total 0.5 mg/dL (0.2-1.3); Blood Urea Nitrogen 31 mg/dL (7-17); Calcium 11.3 mg/dL (8.4-10.2); Carbon Dioxide 28 mmol/L (22-30); Chloride 108 mmol/L (98-107); Estimated CRCL calculation 31 ml/min; Estimated Glomerular Filt Rate 23; Glucose 174 mg/dL (65-110); Potassium 4.1 mmol/L (3.4-5.0); Sodium 140 mmol/L (137-145)
[2024-08-31 06:53] LABS: Anisocytosis 1+; Platelet Estimate Adequate (Adequate); Schistocytes None Seen
[2024-08-31 07:33] LABS: Source Epstein Barr Virus CSF
[2024-08-31 07:35] LABS: Epstein Barr Virus DNA PCR Not Detected
[2024-08-31] MEDS: IPRATROPIUM 0.5 MG/ALBUTEROL SULFATE 2.5 MG AMPUL.NEB 3 ML INHALATION ×3 (07:35→20:21)
[2024-08-31 08:31] LABS: Glucose Point of Care 185 mg/dl (65-105)
[2024-08-31] MEDS: ESCITALOPRAM OXALATE 10 MG TABLET 20 MG PO (09:32)
[2024-08-31] MEDS: CYANOCOBALAMIN 1,000 MCG TABLET 1000 MCG PO (09:32)
[2024-08-31] MEDS: PANTOPRAZOLE 40 MG TABLET PO (09:32)
[2024-08-31] MEDS: EMPAGLIFLOZIN 10 MG TABLET BY MOUTH (09:32)
[2024-08-31] MEDS: allopurinoL 300 MG TABLET PO (09:32)
[2024-08-31] MEDS: FLUTICASONE PROPIONATE 0.05% NA SPR 16 GM BTL (*BKC) 2 SPRAY NASAL (09:33)
[2024-08-31] MEDS: ASPIRIN 81 MG ENTERIC TABLET PO (09:33)
[2024-08-31] MEDS: ENOXAPARIN 40 MG/0.4 ML SYRINGE SUB-Q (09:33)
[2024-08-31] MEDS: ACETAMINOPHEN 325 MG TABLET 650 MG PO ×3 (09:34→21:33)
[2024-08-31] MEDS: METOPROLOL SUCCINATE EXT REL 25 MG TABCR PO (09:35)
[2024-08-31] MEDS: INSULIN ASPART (*BKC) 100 UNITS/ML 15 UNITS SUB-Q ×3 (09:35→17:47)
--- NOTE | 2024-08-31 11:28 | P.PNNP_ITS ---
Progress Note: A&P Assessment and Plan (1) Chronic kidney disease, stage 4 (severe): Code(s): N18.4 - Chronic kidney disease, stage 4 (severe) Status: Chronic Assessment and Plan: * baseline creatinine normally runs ~ 2.1 - 2.6mg/dl but has been as high as 2.9mg/dl * presumably secondary to hypertension, diabetes, vascular disease, and age- related change * follows with Dr. Hester for CKD management (2) Confusion: Code(s): R41.0 - Disorientation, unspecified Status: Acute Assessment and Plan: * as noted on admission * extensive work-up and evaluation noted to date * sedative medications on hold * continue supportive therapy (3) Hypercalcemia: Code(s): E83.52 - Hypercalcemia Status: Acute Assessment and Plan: * known history * presumably due to known history of hyperparathyroidism * was following with Endocrinology * was previously on Sensipar (but this was stopped a few months ago due to hypocalcemia) * follow trend (4) UTI (urinary tract infection): Qualifiers: Urinary tract infection type: site unspecified Hematuria presence: without hematuria Qualified Code(s): N39.0 - Urinary tract infection, site not specified Code(s): N39.0 - Urinary tract infection, site not specified Status: Acute Assessment and Plan: * UA on admission suggestive * follow culture results noted * completed course of antibiotics (5) Hypertension: Code(s): I10 - Essential (primary) hypertension Status: Chronic Assessment and Plan: * reasonable control at this time * follow trend of hemodynamics (6) Type 2 diabetes mellitus: Qualifiers: 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 use: with [facility] use Diabetes mellitus complication status: with kidney complications Diabetes mellitus complication detail: with chronic kidney disease Chronic kidney disease stage: stage 3 (moderate) Chronic kidney disease stage 3 subtype: stage 3b (GFR 30-44) Qualified Code(s): E11.22 - Type 2 diabetes mellitus with diabetic chronic kidney disease; N18.32 - Chronic kidney disease, stage 3b; 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 Subjective Date/time seen: 08/31/24 11:28 Interval history: Follow-up for chronic kidney disease. Still with intermittent confusion but does seems to be a bit more talkative; renal function/creatinine remains relative stable at this time; no acute issues or problems overnight or earlier this morning. Exam Narrative: General: elderly female sitting up in bed in NAD Heart: normal S1 and S2; no rub Lungs: decreased breath sounds at bases Abdomen: soft, nontender, nondistended, positive bowel sounds Extremities: no cyanosis or clubbing; 1+ edema Skin: warm and intact Objective Data Vital Signs Vital Signs: Vital Signs Temp Pulse Resp BP Pulse Ox O2 Del Method O2 Flow Rate 08/31/24 10:34 97.4 F L 08/31/24 08:00 Nasal Cannula 3 08/31/24 09:35 100 08/31/24 07:46 96 20 08/31/24 07:37 94 20 08/31/24 07:37 94 Nasal Cannula 3 08/31/24 05:25 98.4 F 95 20 141/71 H 98 08/30/24 21:23 95 20 08/30/24 21:22 100 89 L Room Air 08/30/24 21:12 100 20 08/30/24 20:00 100 18 91 Room Air 08/30/24 20:54 97.9 F 100 18 138/51 L 91 Intake/Output Intake/Output: Intake & Output 08/28/24 08/29/24 08/30/24 08/31/24 23:59 23:59 23:59 23:59 Intake Total 3137.5 2667.5 2090 476 Output Total 1200 1200 1400 400 Balance 1937.5 1467.5 690 76 Meds/Results Medications: Active Medications Generic Name Dose Route Start Last Admin Trade Name Freq PRN Reason Stop Dose Admin Acetaminophen 650 mg 08/17/24 16:39 08/31/24 09:34 Acetaminophen 325 Mg Tablet PO 650 mg Q4H PRN Administration Mild Pain (1-3) or Fever Albuterol/Ipratropium 3 ml 08/29/24 14:00 08/31/24 13:29 Ipratropium 0.5 Mg/Albuterol Sulfate 2.5 Mg Ampul.Neb 3 Ml INHALATION 3 ml [id number] KAELA Administration Allopurinol 300 mg 08/18/24 09:00 08/31/24 09:32 Allopurinol 300 Mg Tablet PO 300 mg DAILY KAELA Administration Aspirin 81 mg 08/18/24 09:00 08/31/24 09:33 Aspirin 81 Mg Enteric Tablet PO 81 mg QAM KAELA Administration Atorvastatin Calcium 10 mg 08/17/24 21:00 08/30/24 20:21 Atorvastatin 10 Mg Tablet PO 10 mg HS KAELA Administration Benzonatate 100 mg 08/17/24 20:42 08/26/24 10:07 Benzonatate 100 Mg Capsule PO 100 mg TID PRN Administration Cough Cyanocobalamin 1,000 mcg 08/31/24 09:00 08/31/24 09:32 Cyanocobalamin 1,000 Mcg Tablet PO 1,000 mcg QAM KAELA Administration Dextrose 12.5 gm 08/17/24 17:18 Dextrose 50% 25 Gm/50 Ml Syringe IV PUSH PRN PRN Hypoglycemia Protocol Empagliflozin 10 mg 08/24/24 09:00 08/31/24 09:32 Empagliflozin 10 Mg Tablet BY MOUTH 10 mg DAILY KAELA Administration Enoxaparin Sodium 40 mg 08/23/24 09:00 08/31/24 09:33 Enoxaparin 40 Mg/0.4 Ml Syringe SUB-Q 40 mg DAILY KAELA Administration Escitalopram Oxalate 20 mg 08/18/24 09:00 08/31/24 09:32 Escitalopram Oxalate 10 Mg Tablet PO 20 mg DAILY KAELA Administration Fluticasone Propionate 2 spray 08/18/24 09:00 08/31/24 09:33 Fluticasone Propionate 0.05% Na Spr 16 Gm Btl (*Bkc) NASAL 2 spray DAILY KAELA Administration Furosemide 40 mg 08/31/24 16:40 Furosemide 40 Mg Tablet PO BID@0800,1400 [facility] Gabapentin 300 mg 08/17/24 21:00 08/21/24 20:30 Gabapentin 300 Mg Capsule PO 300 mg QHS KAELA Administration Glucagon 1 mg 08/17/24 17:18 Glucagon For Inj 1 Mg Vial IM PRN PRN Hypoglycemia Protocol Glucose 15 gm 08/17/24 17:18 Glucose Oral Gel 15 Gm Of Glucse In 37.5 Gm Tube PO PRN PRN Hypoglycemia Protocol Dextrose 1,000 mls @ 100 mls/hr 08/17/24 17:18 Dextrose 5% 1,000 Ml IVPB PRN PRN Hypoglycemia Protocol Insulin Aspart 2 - 4 units 08/17/24 21:00 11/07/24 20:18 Insulin Aspart (*Bkc) 100 Units/Ml SUB-Q Not Given HS [facility] Protocol Insulin Aspart 2 - 5 units 08/24/24 17:00 08/31/24 13:52 Insulin Aspart (*Bkc) 100 Units/Ml SUB-Q 2 units TIDWM KAELA Administration Protocol Insulin Aspart 15 units 08/26/24 12:00 08/31/24 13:52 Insulin Aspart (*Bkc) 100 Units/Ml SUB-Q 15 units TIDWM KAELA Administration Insulin Glargine 45 units 08/26/24 21:00 08/30/24 20:21 Insulin Glargine (*Bkc) 100 Units/Ml SUB-Q 45 units HS KAELA Administration Levothyroxine Sodium 50 mcg 08/18/24 06:30 08/31/24 05:35 Levothyroxine Sodium 50 Mcg Tablet PO 50 mcg DAILY@0630 KAELA Administration Metoprolol Succinate 25 mg 08/21/24 09:00 08/31/24 09:35 Metoprolol Succinate Ext Rel 25 Mg Tabcr PO 25 mg QAM [facility] Administration Ondansetron HCl 4 mg 08/17/24 17:17 Ondansetron Inj 4 Mg/2 Ml Vial IV PUSH Q6H PRN Nausea And Vomiting Pantoprazole Sodium 40 mg 08/18/24 09:00 08/31/24 09:32 Pantoprazole 40 Mg Tablet PO 40 mg QAM [facility] Administration Sodium Chloride 2 spray 08/17/24 20:42 08/27/24 09:18 Saline 0.65% Sha Soln 44 Ml Btl NASAL 2 spray QID PRN Administration nasal congestion/dryness Radiology Results: ITS Impressions Shoulder X-Ray 08/18/24 15:56 IMPRESSION: Osteopenia Head CT 08/20/24 09:56 IMPRESSION: 1. Stable moderate nonspecific cerebral white matter disease, which likely represents chronic small vessel ischemic disease. Pulmonary Perfusion Imaging 08/20/24 12:15 IMPRESSION: 1. Low probability for pulmonary embolism. Brain MRI 08/22/24 16:06 IMPRESSION: 1. Moderate nonspecific cerebral white matter disease and pontine disease, which likely represents chronic small vessel ischemic disease, stable from 05/26/2022. Chest X-Ray 08/22/24 18:38 IMPRESSION: Moderate interstitial edema. Subsegmental bibasilar atelectasis/consolidation. Possible small bilateral effusions. Hand X-Ray 08/23/24 15:26 IMPRESSION: Possible fracture in the distal radius. Clinical correlation and proper images are advised. Slight narrowing of the proximal and distal interphalangeal joints. Forearm X-Ray 08/24/24 11:01 IMPRESSION: 1. No fracture identified. 2. Loose bodies in the radiocarpal compartment. Modified Barium Swallow 08/24/24 14:17 IMPRESSION: Minimal pharyngeal dysphagia with trace shallow laryngeal penetration without aspiration. Please correlate with speech pathologist findings and specific feeding recommendations. Chest/Abdomen/Pelvis CT 08/27/24 09:37 IMPRESSION: 1. Mild atelectasis in the lungs. Lumbar Puncture Fluoroscopy 08/27/24 15:40 IMPRESSION: 1. Successful fluoro-guided lumbar puncture. Venous Doppler Study 08/29/24 23:29 IMPRESSION: 1. No deep venous thrombosis within the right lower extremity from the level of the mid femoral vein centrally to the right common femoral vein, as detailed above. Labs Labs: Laboratory Tests 08/31/24 05:41 08/31/24 05:40 Calcium 11.3 H Total Bilirubin 0.5 AST 27 ALT 13 Alkaline Phosphatase 90 Total Protein 7.0 Albumin 3.4 L
[2024-08-31 11:44] LABS: Glucose Point of Care 211 mg/dl (65-105)
[2024-08-31] MEDS: INSULIN ASPART (*BKC) 100 UNITS/ML SUB-Q (13:52)
--- NOTE | 2024-08-31 14:57 | P.PNIM_ITS ---
Progress Note: A&P Assessment and Plan (1) Confusion: Code(s): R41.0 - Disorientation, unspecified Status: Acute Assessment and Plan: Patient had increasing altered mental status since admission. Patient slow to respond, able follow simple commands, staring into space. EEG 08/27 showing abnormal EEG due to presence of diffuse background slowing suggestive of generalized encephalopathy Such as may be seen with bihemispheric lesions or metabolic encephalopathy. No focal or paroxysmal epileptiform abnormalities were seen. ABG within normal limits. Ammonia level negative. TSH normal. VitD deficiency noted. HIV negative in Feb B12 low end of normal at 303. B12 replaced. MRI shows moderate nonspecific cerebral white matter disease and pontine disease, which likely represents chronic small vessel ischemic disease, stable from 05/26/2022. Gabapentin, allopurinol and narcotic medications were held Was on Fioricet prn but may be taking this more regularly so consider withdrawal Confusion appears to be multifactorial from dementia, hospital-acquired hypoactive delirium and/or psychiatric issues Hypercalcemia noted. Started on IV fluids as BRADY also worsening. Hypercalcemia about the same today Neurology consulted and recommended pt to follow-up outpatient in 3 weeks for Alzheimer's workup LP performed 08/27/2024. Negative for bacterial. Viral etiology still possible so acyclovir renally dose started Consider related to uremia and/or hypercalcemia and/or being off Fiorcet Speech therapy note reviewed. Diet adjusted CSF HSV PCR was negative so Acyclovir stopped. VDRL also negative. Slow improvement with conservative care. Resume some of her home meds. (2) UTI (urinary tract infection): Qualifiers: Hematuria presence: without hematuria Urinary tract infection type: site unspecified Qualified Code(s): N39.0 - Urinary tract infection, site not specified Code(s): N39.0 - Urinary tract infection, site not specified Status: Acute Assessment and Plan: UA is consistent with UTI. UCx collected. Rocephin started. BCx negative. UCx grew Citrobacter that was essentially odonnell-sensitive. Rocephin x 3 days then changed to Cefepime then Bactrim to complete a course. Off abx currently (3) Acute respiratory failure with hypoxia: Code(s): J96.01 - Acute respiratory failure with hypoxia Status: Acute Assessment and Plan: Patient is not on any baseline oxygen during the day however is requiring 2-4 L nasal cannula now due to hypoxia in the ER with oxygen saturation of 87% on room air. CXR showing airspace opacities in the lower lung zones. BNP 480. Respiratory panel was negative for influenza a and B, RSV, COVID ABG showed normal pH of 7.366, pCO2 46.2, PO2 58.7, bicarb 25.9 on 2L Patient was started on abx while in the ED WBC count was normal at 8.6, she was afebrile D-dimer mildly elevated but V/Q scan low probability and LE venous doppler was negative (limited study and could only get right LE) EKG showing sinus rhythm with a rate of 66, QTC 423 CT chest 08/27 showing mild atelectasis Weaned to room air (4) CHF (congestive heart failure), NYHA class I: Qualifiers: Congestive heart failure type: unspecified Qualified Code(s): I50.9 - Heart failure, unspecified Code(s): I50.9 - Heart failure, unspecified Status: Acute Assessment and Plan: Echo from 12/2021 showed normal LV systolic function (EF of 65-70%), grade 1 diastolic dysfunction. CXR reporting airspace opacities in the lower lung zones likely atelectasis. BNP 483 A one time dose of 40 mg of IV Lasix ordered-- Will hold off on further diuresis considering renal function Repeat Echo EF 65-70% Lasix was on hold. Renal function stable Resume home Lasix a t half dose and monitor (5) Type 2 diabetes mellitus: Qualifiers: Chronic kidney disease stage: stage 3 (moderate) Chronic kidney disease stage 3 subtype: stage 3b (GFR 30-44) Diabetes mellitus complication detail: with chronic kidney disease Diabetes mellitus complication status: with kidney complications Diabetes mellitus ocean transportation intermediary insulin use: with senior living use Qualified Code(s): E11.22 - Type 2 diabetes mellitus with diabetic chronic kidney disease; N18.32 - Chronic kidney disease, stage 3b; Z79.4 - FDC (current) use of insulin Code(s): E11.9 - Type 2 diabetes mellitus without complications Status: Chronic Assessment and Plan: A1c 9.5. The patient's blood glucose was reviewed on 08/31 Glucose better controlled. Continue AccuCheks covering with sliding scale. Hypoglycemia protocol available as needed. Diabetic diet Continue to monitor. (6) Chronic kidney disease, stage IV (severe): Code(s): N18.4 - Chronic kidney disease, stage 4 (severe) Status: Chronic Assessment and Plan: Creatinine 2.9, EGFR 16 Baseline creatinine 2.10-2.60, baseline EGFR 18-23 Cr up to 3.3 so diuretics stopped. Was on IV fluids and Cr trended down to 2.1 Resume lasix at half home dose Follow (7) Hypertension: Code(s): I10 - Essential (primary) hypertension Status: Chronic Assessment and Plan: Patient's blood pressure was reviewed on 08/31 Blood pressure remains mostly well controlled. Will continue to follow to see if the Lasix improves the BP (8) Obstructive sleep apnea on CPAP: Code(s): G47.33 - Obstructive sleep apnea (adult) (pediatric); Z99.89 - Dependence on other enabling machines and devices Status: Chronic Assessment and Plan: Patient does not wear CPAP but only wears 2L of oxygen at night only ABG as above Continue O2 at night (9) Hypothyroidism: Qualifiers: Hypothyroidism type: acquired Qualified Code(s): E03.9 - Hypothyroidism, unspecified Code(s): E03.9 - Hypothyroidism, unspecified Status: Chronic Assessment and Plan: TSH normal. Continue Synthroid (10) Elevated d-dimer: Code(s): R79.89 - Other specified abnormal findings of blood chemistry Status: Acute Assessment and Plan: As above. (11) Radial styloid fracture: Qualifiers: Encounter type: initial encounter Fracture alignment: nondisplaced Fracture type: closed Laterality: right Qualified Code(s): S52.514A - Nondisplaced fracture of right radial styloid process, initial encounter for c losed fracture Code(s): S52.513A - Displaced fracture of unspecified radial styloid process, initial encounter for closed fracture Status: Acute Assessment and Plan: Right subacute stylod fx. Orthopedics consulted Brace for support Okay for range of motion Platform walker weight-bearing through elbow Brace for 4-6 weeks and follow-up outpatient clinic (12) Hyperparathyroidism: Code(s): E21.3 - Hyperparathyroidism, unspecified Status: Acute Assessment and Plan: iPTH elevated which explains the hypercalcemia. Calcium level better with IV fluids. Follow off IV fluids. Plan DVT prophylaxis - Lovenox Code status - full Subjective Date/time seen: 08/31/24 14:57 Interval history: 74yo female with CHF, CKD, chronic resp failure on home O2, DM, ABDIAZIZ and HTN here for weakness and low BP. Awake, alert. Still confused but able to talk a little bit more. Review of Systems Review of Systems: ROS unobtainable: Yes unobtainable due to mental status Exam Narrative: AF 97.4 179/69 95 20 92% 3L Gen - NARD sitting up in bed Chest - Clear anteriorly and in the flanks CV - RRR S1/S2 Abd - Soft, obese, No apparent tenderness. +BS Ext - trace pedal edema. Right wrist in soft cast. Neuro - less tremulous. regards. more responsive to questions but with long pauses. She is confused. she laughs inappropriately. Psych - odd affect. difficult to assess Skin - Warm and dry Objective Data Vital Signs Vital Signs: Vital Signs - 24 hr 08/30/24 20:54 08/30/24 20:00 08/30/24 21:12 Temperature 97.9 F Pulse Rate 100 100 100 Respiratory Rate 18 18 20 Blood Pressure 138/51 L Pulse Oximetry 91 91 Oxygen Delivery Room Air Oxygen Flow Rate Fraction of Inspired Oxygen 32 08/30/24 21:22 08/30/24 21:23 08/31/24 05:25 Temperature 98.4 F Pulse Rate 100 95 95 Respiratory Rate 20 20 Blood Pressure 141/71 H Pulse Oximetry 89 L 98 Oxygen Delivery Room Air Oxygen Flow Rate Fraction of Inspired Oxygen 08/31/24 07:37 08/31/24 07:37 08/31/24 07:46 Temperature Pulse Rate 94 96 Respiratory Rate 20 20 Blood Pressure Pulse Oximetry 94 Oxygen Delivery Nasal Cannula Oxygen Flow Rate 3 Fraction of Inspired Oxygen 08/31/24 09:35 08/31/24 08:00 08/31/24 13:29 Temperature Pulse Rate 100 93 Respiratory Rate 20 Blood Pressure Pulse Oximetry Oxygen Delivery Nasal Cannula Oxygen Flow Rate 3 Fraction of Inspired Oxygen 08/31/24 13:38 08/31/24 14:00 08/31/24 10:34 Temperature 97.4 F L 97.4 F L Pulse Rate 92 95 Respiratory Rate 20 20 Blood Pressure 179/69 H Pulse Oximetry 92 Oxygen Delivery Oxygen Flow Rate Fraction of Inspired Oxygen Intake/Output Intake/Output: Intake & Output 08/28/24 08/29/24 08/30/2408/31/24 23:59 23:59 23:59 23:59 Intake Total 3137.5 2667.5 2090 476 Output Total 1200 1200 1400 400 Balance 1937.5 1467.5 690 76 Meds/Results Medications: Active Medications Generic Name Dose Route Start Last Admin Trade Name Freq PRN Reason Stop Dose Admin Acetaminophen 650 mg 08/17/24 16:39 08/31/24 09:34 Acetaminophen 325 Mg Tablet PO 650 mg Q4H PRN Administration Mild Pain (1-3) or Fever Albuterol/Ipratropium 3 ml 08/29/24 14:00 08/31/24 13:29 Ipratropium 0.5 Mg/Albuterol Sulfate 2.5 Mg Ampul.Neb 3 Ml INHALATION 3 ml [id number] KAELA Administration Allopurinol 300 mg 08/18/24 09:00 08/31/24 09:32 Allopurinol 300 Mg Tablet PO 300 mg DAILY KAELA Administration Aspirin 81 mg 08/18/24 09:00 08/31/24 09:33 Aspirin 81 Mg Enteric Tablet PO 81 mg QAM KAELA Administration Atorvastatin Calcium 10 mg 08/17/24 21:00 08/30/24 20:21 Atorvastatin 10 Mg Tablet PO 10 mg HS KAELA Administration Benzonatate 100 mg 08/17/24 20:42 08/26/24 10:07 Benzonatate 100 Mg Capsule PO 100 mg TID PRN Administration Cough Cyanocobalamin 1,000 mcg 08/31/24 09:00 08/31/24 09:32 Cyanocobalamin 1,000 Mcg Tablet PO 1,000 mcg QAM KAELA Administration Dextrose 12.5 gm 08/17/24 17:18 Dextrose 50% 25 Gm/50 Ml Syringe IV PUSH PRN PRN Hypoglycemia Protocol Empagliflozin 10 mg 08/24/24 09:00 08/31/24 09:32 Empagliflozin 10 Mg Tablet BY MOUTH 10 mg DAILY KAELA Administration Enoxaparin Sodium 40 mg 08/23/24 09:00 08/31/24 09:33 Enoxaparin 40 Mg/0.4 Ml Syringe SUB-Q 40 mg DAILY KAELA Administration Escitalopram Oxalate 20 mg 08/18/24 09:00 08/31/24 09:32 Escitalopram Oxalate 10 Mg Tablet PO 20 mg DAILY KAELA Administration Fluticasone Propionate 2 spray 08/18/24 09:00 08/31/24 09:33 Fluticasone Propionate 0.05% Na Spr 16 Gm Btl (*Bkc) NASAL 2 spray DAILY KAELA Administration Furosemide 40 mg 08/31/24 08:00 Furosemide 40 Mg Tablet PO BID@0800,1400 KAELA Gabapentin 300 mg 08/17/24 21:00 08/21/24 20:30 Gabapentin 300 Mg Capsule PO 300 mg QHS KAELA Administration Glucagon 1 mg 08/17/24 17:18 Glucagon For Inj 1 Mg Vial IM PRN PRN Hypoglycemia Protocol Glucose 15 gm 08/17/24 17:18 Glucose Oral Gel 15 Gm Of Glucse In 37.5 Gm Tube PO PRN PRN Hypoglycemia Protocol Dextrose 1,000 mls @ 100 mls/hr 08/17/24 17:18 Dextrose 5% 1,000 Ml IVPB PRN PRN Hypoglycemia Protocol Insulin Aspart 2 - 4 units 08/17/24 21:00 08/30/24 20:18 Insulin Aspart (*Bkc) 100 Units/Ml SUB-Q Not Given HS KAELA Protocol Insulin Aspart 2 - 5 units 08/24/24 17:00 08/31/24 13:52 Insulin Aspart (*Bkc) 100 Units/Ml SUB-Q 2 units TIDWM KAELA Administration Protocol Insulin Aspart 15 units 08/26/24 12:00 08/31/24 13:52 Insulin Aspart (*Bkc) 100 Units/Ml SUB-Q 15 units TIDWM KAELA Administration Insulin Glargine 45 units 08/26/24 21:00 08/30/24 20:21 Insulin Glargine (*Bkc) 100 Units/Ml SUB-Q 45 units HS KAELA Administration Levothyroxine Sodium 50 mcg 08/18/24 06:30 08/31/24 05:35 Levothyroxine Sodium 50 Mcg Tablet PO 50 mcg DAILY@0630 KAELA Administration Metoprolol Succinate 25 mg 08/21/24 09:00 08/31/24 09:35 Metoprolol Succinate Ext Rel 25 Mg Tabcr PO 25 mg QAM KAELA Administration Ondansetron HCl 4 mg 08/17/24 17:17 Ondansetron Inj 4 Mg/2 Ml Vial IV PUSH Q6H PRN Nausea And Vomiting Pantoprazole Sodium 40 mg 08/18/24 09:00 08/31/24 09:32 Pantoprazole 40 Mg Tablet PO 40 mg QAM KAELA Administration Sodium Chloride 2 spray 08/17/24 20:42 08/27/24 09:18 Saline 0.65% Sha Soln 44 Ml Btl NASAL 2 spray QID PRN Administration nasal congestion/dryness Radiology Results: ITS Impressions Shoulder X-Ray 08/18/24 15:56 IMPRESSION: Osteopenia Head CT 08/20/24 09:56 IMPRESSION: 1. Stable moderate nonspecific cerebral white matter disease, which likely represents chronic small vessel ischemic disease. Pulmonary Perfusion Imaging 08/20/24 12:15 IMPRESSION: 1. Low probability for pulmonary embolism. Brain MRI 08/22/24 16:06 IMPRESSION: 1. Moderate nonspecific cerebral white matter disease and pontine disease, which likely represents chronic small vessel ischemic disease, stable from 05/26/2022. Chest X-Ray 08/22/24 18:38 IMPRESSION: Moderate interstitial edema. Subsegmental bibasilar atelectasis/consolidation. Possible small bilateral effusions. Hand X-Ray 08/23/24 15:26 IMPRESSION: Possible fracture in the distal radius. Clinical correlation and proper images are advised. Slight narrowing of the proximal and distal interphalangeal joints. Forearm X-Ray 08/24/24 11:01 IMPRESSION: 1. No fracture identified. 2. Loose bodies in the radiocarpal compartment. Modified Barium Swallow 08/24/24 14:17 IMPRESSION: Minimal pharyngeal dysphagia with trace shallow laryngeal penetration without aspiration. Please correlate with speech pathologist findings and specific feeding recommendations. Chest/Abdomen/Pelvis CT 08/27/24 09:37 IMPRESSION: 1. Mild atelectasis in the lungs. Lumbar Puncture Fluoroscopy 08/27/24 15:40 IMPRESSION: 1. Successful fluoro-guided lumbar puncture. Venous Doppler Study 08/29/24 23:29 IMPRESSION: 1. No deep venous thrombosis within the right lower extremity from the level of the mid femoral vein centrally to the right common femoral vein, as detailed above. Labs Labs: Laboratory Results - last 24 hr 08/27/24 08/30/24 08/30/24 15:20 16:56 20:16 WBC RBC Hgb Hct MCV MCH MCHC RDW Plt Count MPV Immature Gran % (Auto) Neut % (Auto) Lymph % (Auto) [place] % (Auto) Eos % (Auto) Baso % (Auto) Lymph # (Auto) [place] # (Auto) Eos # (Auto) Baso # (Auto) Abs Immat Gran (auto) Absolute Neuts (auto) Absolute Nucleated RBC Nucleated RBC % Platelet Estimate Anisocytosis Schistocytes Sodium Potassium Chloride Carbon Dioxide Anion Gap BUN Creatinine Estim Creat Clear Calc Estimated GFR Glucose POC Capillary Glucose 190 H 177 H Calcium Total Bilirubin AST ALT Alkaline Phosphatase Total Protein Albumin Fluid EBV Source Csf CSF VDRL Non-reactive CSF EBV DNA (PCR) Not detected CSF Herpes I DNA (PCR) Not detected CSF Herpes II DNA (PCR) Not detected HSV (PCR) Source Results below 08/31/24 08/31/24 08/31/24 05:40 05:41 08:28 WBC 5.9 RBC 3.84 L Hgb 11.3 L Hct 37.9 MCV 98.7 MCH 29.4 MCHC 29.8 L RDW 16.6 H Plt Count 337 MPV 9.8 Immature Gran % (Auto) 0.3 Neut % (Auto) 46.4 Lymph % (Auto) 31.9 [place] % (Auto) 12.6 H Eos % (Auto) 8.1 H Baso % (Auto) 0.7 Lymph # (Auto) 1.88 [place] # (Auto) 0.7 H Eos # (Auto) 0.5 H Baso # (Auto) 0.0 Abs Immat Gran (auto) 0.02 Absolute Neuts (auto) 2.7 Absolute Nucleated RBC 0.000 Nucleated RBC % 0.0 Platelet Estimate Adequate Anisocytosis 1+ Schistocytes None seen Sodium 140 Potassium 4.1 Chloride 108 H Carbon Dioxide 28 Anion Gap 4 BUN 31 H D Creatinine 2.10 H Estim Creat Clear Calc 31 Estimated GFR 23 L Glucose 174 H POC Capillary Glucose 185 H Calcium 11.3 H Total Bilirubin 0.5 AST 27 ALT 13 Alkaline Phosphatase 90 Total Protein 7.0 Albumin 3.4 L Fluid EBV Source CSF VDRL CSF EBV DNA (PCR) CSF Herpes I DNA (PCR) CSF Herpes II DNA (PCR) HSV (PCR) Source 08/31/24 11:41 WBC RBC Hgb Hct MCV MCH MCHC RDW Plt Count MPV Immature Gran % (Auto) Neut % (Auto) Lymph % (Auto) [place] % (Auto) Eos % (Auto) Baso % (Auto) Lymph # (Auto) [place] # (Auto) Eos # (Auto) Baso # (Auto) Abs Immat Gran (auto) Absolute Neuts (auto) Absolute Nucleated RBC Nucleated RBC % Platelet Estimate Anisocytosis Schistocytes Sodium Potassium Chloride Carbon Dioxide Anion Gap BUN Creatinine Estim Creat Clear Calc Estimated GFR Glucose POC Capillary Glucose 211 H Calcium Total Bilirubin AST ALT Alkaline Phosphatase Total Protein Albumin Fluid EBV Source CSF VDRL CSF EBV DNA (PCR) CSF Herpes I DNA (PCR) CSF Herpes II DNA (PCR) HSV (PCR) Source
[2024-08-31 16:49] LABS: Glucose Point of Care 195 mg/dl (65-105)
[2024-08-31] MEDS: FUROSEMIDE 40 MG TABLET PO (17:49)
[2024-08-31] MEDS: ATORVASTATIN 10 MG TABLET PO (21:33)
[2024-08-31] MEDS: GABAPENTIN 300 MG CAPSULE PO (21:33)
[2024-08-31] MEDS: INSULIN GLARGINE (*BKC) 100 UNITS/ML 45 UNITS SUB-Q (21:34)
[2024-08-31 21:47] LABS: Glucose Point of Care 120 mg/dl (65-105)
[2024-09-01] VITALS (9 sets, daily range): BP systolic 125–150; BP diastolic 47–69; PULSE 78–95; RESP 16–20; TEMP 36.4–36.5; O2SAT 93–96; BMI 10.0
[2024-09-01] MEDS: IPRATROPIUM 0.5 MG/ALBUTEROL SULFATE 2.5 MG AMPUL.NEB 3 ML INHALATION ×2 (02:20→11:20)
[2024-09-01] MEDS: LEVOTHYROXINE SODIUM 50 MCG TABLET PO (05:33)
[2024-09-01 06:50] LABS: Albumin Level 3.5 g/dL (3.5-5.1); Anion Gap 6 mmol/L (4-12); Blood Urea Nitrogen 31 mg/dL (7-17); Calcium 11.7 mg/dL (8.4-10.2); Carbon Dioxide 28 mmol/L (22-30); Chloride 106 mmol/L (98-107); Estimated CRCL calculation 31 ml/min; Estimated Glomerular Filt Rate 23; Glucose 171 mg/dL (65-110); Phosphorus 3.9 mg/dL (2.5-4.5); Potassium 4.3 mmol/L (3.4-5.0); Sodium 140 mmol/L (137-145)
[2024-09-01 08:33] LABS: Glucose Point of Care 198 mg/dl (65-105)
[2024-09-01] MEDS: FUROSEMIDE 40 MG TABLET PO ×2 (09:56→17:48)
[2024-09-01] MEDS: allopurinoL 300 MG TABLET PO (09:57)
[2024-09-01] MEDS: CYANOCOBALAMIN 1,000 MCG TABLET 1000 MCG PO (09:57)
[2024-09-01] MEDS: ESCITALOPRAM OXALATE 10 MG TABLET 20 MG PO (09:57)
[2024-09-01] MEDS: METOPROLOL SUCCINATE EXT REL 25 MG TABCR PO (09:58)
[2024-09-01] MEDS: ENOXAPARIN 40 MG/0.4 ML SYRINGE SUB-Q (10:00)
[2024-09-01] MEDS: EMPAGLIFLOZIN 10 MG TABLET BY MOUTH (10:00)
[2024-09-01] MEDS: ASPIRIN 81 MG ENTERIC TABLET PO (10:00)
[2024-09-01] MEDS: ACETAMINOPHEN 325 MG TABLET 650 MG PO ×2 (10:00→17:47)
[2024-09-01] MEDS: PANTOPRAZOLE 40 MG TABLET PO (10:00)
[2024-09-01] MEDS: INSULIN ASPART (*BKC) 100 UNITS/ML 15 UNITS SUB-Q ×2 (10:01→12:57)
[2024-09-01] MEDS: FLUTICASONE PROPIONATE 0.05% NA SPR 16 GM BTL (*BKC) 2 SPRAY NASAL (10:03)
[2024-09-01 12:10] LABS: Glucose Point of Care 259 mg/dl (65-105)
[2024-09-01] MEDS: INSULIN ASPART (*BKC) 100 UNITS/ML SUB-Q (12:57)
--- NOTE | 2024-09-01 13:19 | PM.IMPN ---
Progress Note: A&P Assessment and Plan (1) Confusion: Code(s): R41.0 - Disorientation, unspecified Status: Acute Assessment and Plan: Patient had increasing altered mental status since admission. Patient slow to respond, able follow simple commands, staring into space. EEG 08/27 showing abnormal EEG due to presence of diffuse background slowing suggestive of generalized encephalopathy Such as may be seen with bihemispheric lesions or metabolic encephalopathy. No focal or paroxysmal epileptiform abnormalities were seen. ABG within normal limits. Ammonia level negative. TSH normal. VitD deficiency noted related to hypercalcemia. HIV negative in Feb B12 low end of normal at 303. B12 replaced. MRI shows moderate nonspecific cerebral white matter disease and pontine disease, which likely represents chronic small vessel ischemic disease, stable from 05/26/2022. Gabapentin, allopurinol and narcotic medications were held Was on Fioricet prn but may be taking this more regularly so consider withdrawal Confusion appears to be multifactorial from dementia, withdrawal, hypercalcemia, hospital-acquired hypoactive delirium and/or psychiatric issues. LP performed 08/27/2024. Negative for bacterial. Viral etiology still possible so acyclovir renally dose started Consider related to uremia and/or hypercalcemia and/or being off Fiorcet Speech therapy note reviewed. Diet adjusted CSF HSV PCR was negative so Acyclovir stopped. VDRL also negative. Neurology consulted and recommended pt to follow-up outpatient in 3 weeks for Alzheimer's workup Slow improvement with conservative care. (2) Hyperparathyroidism: Code(s): E21.3 - Hyperparathyroidism, unspecified Status: Acute Assessment and Plan: Hypercalcemia noted. Started on IV fluids as BRADY also worsening. iPTH elevated which explains the hypercalcemia. [id number] 19 probably related to the hypercalcemia. TSH normal. iPTH 136 (and has been elevated since 2021) Calcium level better with IV fluids. Calcium stable in the 11 range Bone scan ordered. Follow off IV fluids. (3) UTI (urinary tract infection): Qualifiers: Hematuria presence: without hematuria Urinary tract infection type: site unspecified Qualified Code(s): N39.0 - Urinary tract infection, site not specified Code(s): N39.0 - Urinary tract infection, site not specified Status: Acute Assessment and Plan: UA is consistent with UTI. UCx collected. Rocephin started. BCx negative. UCx grew Citrobacter that was essentially odonnell-sensitive. Rocephin x 3 days then changed to Cefepime then Bactrim to complete a course. Off abx currently (4) Acute respiratory failure with hypoxia: Code(s): J96.01 - Acute respiratory failure with hypoxia Status: Acute Assessment and Plan: Patient is not on any baseline oxygen during the day however is requiring 2-4 L nasal cannula now due to hypoxia in the ER with oxygen saturation of 87% on room air. CXR showing airspace opacities in the lower lung zones. BNP 480. Respiratory panel was negative for influenza a and B, RSV, COVID ABG showed normal pH of 7.366, pCO2 46.2, PO2 58.7, bicarb 25.9 on 2L Patient was started on abx while in the ED WBC count was normal at 8.6, she was afebrile D-dimer mildly elevated but V/Q scan low probability and LE venous doppler was negative (limited study and could only get right LE) EKG showing sinus rhythm with a rate of 66, QTC 423 CT chest 08/27 showing mild atelectasis Wean O2 as tolerated (5) CHF (congestive heart failure), NYHA class I: Qualifiers: Congestive heart failure type: unspecified Qualified Code(s): I50.9 - Heart failure, unspecified Code(s): I50.9 - Heart failure, unspecified Status: Acute Assessment and Plan: Echo from 12/2021 showed normal LV systolic function (EF of 65-70%), grade 1 diastolic dysfunction. CXR reporting airspace opacities in the lower lung zones likely atelectasis. BNP 483 A one time dose of 40 mg of IV Lasix ordered-- Will hold off on further diuresis considering renal function Repeat Echo EF 65-70% Lasix was on hold. Renal function stable Resumed home Lasix at half dose and Cr remaining stable. 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 The patient's blood glucose was reviewed on 09/01 Glucose better controlled. Glucose 171 this morning. Continue AccuCheks covering with sliding scale. Hypoglycemia protocol available as needed. Diabetic diet. Continue to monitor. Advance mealtime novolog (7) Chronic kidney disease, stage IV (severe): Code(s): N18.4 - Chronic kidney disease, stage 4 (severe) Status: Chronic Assessment and Plan: Creatinine 2.9, EGFR 16 on admission. Baseline creatinine 2.1-2.6 Cr up to 3.3 so diuretics stopped. Was on IV fluids and Cr trended down to 2.1 Resumed oral lasix at half home dose and Cr remaining stable Follow (8) Hypertension: Code(s): I10 - Essential (primary) hypertension Status: Chronic Assessment and Plan: Patient's blood pressure was reviewed on 09/01 Blood pressure better controlled with resuming the Lasix. Will continue to follow (9) Obstructive sleep apnea on CPAP: Code(s): G47.33 - Obstructive sleep apnea (adult) (pediatric); Z99.89 - Dependence on other enabling machines and devices Status: Chronic Assessment and Plan: Patient does not wear CPAP but only wears 2L of oxygen at night only ABG as above Continue O2 at night (10) Hypothyroidism: Qualifiers: Hypothyroidism type: acquired Qualified Code(s): E03.9 - Hypothyroidism, unspecified Code(s): E03.9 - Hypothyroidism, unspecified Status: Chronic Assessment and Plan: TSH normal. Continue Synthroid (11) Elevated d-dimer: Code(s): R79.89 - Other specified abnormal findings of blood chemistry Status: Acute Assessment and Plan: As above. (12) Radial styloid fracture: Qualifiers: Encounter type: initial encounter Fracture alignment: nondisplaced Fracture type: closed Laterality: right Qualified Code(s): S52.514A - Nondisplaced fracture of right radial styloid process, initial encounter for closed fracture Code(s): S52.513A - Displaced fracture of unspecified radial styloid process, initial encounter for closed fracture Status: Acute Assessment and Plan: Right subacute stylod fx. Orthopedics consulted Brace for support Okay for range of motion Platform walker weight-bearing through elbow Brace for 4-6 weeks and follow-up outpatient clinic Plan DVT prophylaxis - Lovenox Code status - full Subjective Date/time seen: 09/01/24 13:19 Interval history: 74yo female with CHF, CKD, chronic resp failure on home O2, DM, ABDIAZIZ and HTN here for weakness and low BP. More alert and interactive. A friend, Cassy, visiting and patient much more animated. She is more oriented but still confused. Exam Narrative: AF 97.7 125/47 86 20 93% 2L Gen - NARD sitting up in bed Chest - Rt base inspiratory crackles o/w clear CV - RRR S1/S2 Abd - Soft, obese Ext - trace pedal edema. Right wrist in soft cast. Neuro - Responsive. still slow to respond but improved. oriented to the year and her name. Psych - odd affect. Skin - Warm and dry Objective Data Vital Signs Vital Signs: Vital Signs - 24 hr 08/31/24 13:29 08/31/24 13:38 08/31/24 14:00 Temperature 97.4 F L Pulse Rate 93 92 95 Respiratory Rate 20 20 20 Blood Pressure 179/69 H Pulse Oximetry 92 Oxygen Delivery Oxygen Flow Rate 08/31/24 19:58 08/31/24 20:22 08/31/24 20:29 Temperature 97.9 F Pulse Rate 99 93 Respiratory Rate 18 19 Blood Pressure 165/88 H Pulse Oximetry 94 94 Oxygen Delivery Nasal Cannula Oxygen Flow Rate 3 08/31/24 20:30 08/31/24 20:00 09/01/24 02:20 Temperature Pulse Rate 90 83 Respiratory Rate 19 20 Blood Pressure Pulse Oximetry 94 Oxygen Delivery Nasal Cannula Oxygen Flow Rate 3 09/01/24 02:30 09/01/24 05:17 09/01/24 09:58 Temperature 97.7 F Pulse Rate 86 95 78 Respiratory Rate 20 18 Blood Pressure 125/47 L Pulse Oximetry 93 Oxygen Delivery Oxygen Flow Rate 09/01/24 10:17 09/01/24 08:00 09/01/24 11:20 Temperature Pulse Rate 84 Respiratory Rate 20 Blood Pressure Pulse Oximetry Oxygen Delivery Nasal Cannula Nasal Cannula Oxygen Flow Rate 2 3 09/01/24 11:30 Temperature Pulse Rate 86 Respiratory Rate 20 Blood Pressure Pulse Oximetry Oxygen Delivery Oxygen Flow Rate Intake/Output Intake/Output: Intake & Output 08/29/24 08/30/24 08/31/24 09/01/24 23:59 23:59 23:59 23:59 Intake Total 2667.5 2090 1276 660 Output Total 1200 1400 1710 650 Balance 1467.5 690 -434 10 Meds/Results Medications: Active Medications Generic Name Dose Route Start Last Admin Trade Name Freq PRN Reason Stop Dose Admin Acetaminophen 650 mg 08/17/24 16:39 09/01/24 10:00 Acetaminophen 325 Mg Tablet PO 650 mg Q4H PRN Administration Mild Pain (1-3) or Fever Albuterol/Ipratropium 3 ml 08/29/24 14:00 09/01/24 11:20 Ipratropium 0.5 Mg/Albuterol Sulfate 2.5 Mg Ampul.Neb 3 Ml INHALATION 3 ml [id number] KAELA Administration Allopurinol 300 mg 08/18/24 09:00 09/01/24 09:57 Allopurinol 300 Mg Tablet PO 300 mg DAILY KAELA Administration Aspirin 81 mg 08/18/24 09:00 09/01/24 10:00 Aspirin 81 Mg Enteric Tablet PO 81 mg QAM KAELA Administration Atorvastatin Calcium 10 mg 08/17/24 21:00 08/31/24 21:33 Atorvastatin 10 Mg Tablet PO 10 mg HS KAELA Administration Benzonatate 100 mg 08/17/24 20:42 08/26/24 10:07 Benzonatate 100 Mg Capsule PO 100 mg TID PRN Administration Cough Cyanocobalamin 1,000 mcg 08/31/24 09:00 09/01/24 09:57 Cyanocobalamin 1,000 Mcg Tablet PO 1,000 mcg QAM KAELA Administration Dextrose 12.5 gm 08/17/24 17:18 Dextrose 50% 25 Gm/50 Ml Syringe IV PUSH PRN PRN Hypoglycemia Protocol Empagliflozin 10 mg 08/24/24 09:00 09/01/24 10:00 Empagliflozin 10 Mg Tablet BY MOUTH 10 mg DAILY KAELA Administration Enoxaparin Sodium 40 mg 08/23/24 09:00 09/01/24 10:00 Enoxaparin 40 Mg/0.4 Ml Syringe SUB-Q 40 mg DAILY KAELA Administration Escitalopram Oxalate 20 mg 08/18/24 09:00 09/01/24 09:57 Escitalopram Oxalate 10 Mg Tablet PO 20 mg DAILY KAELA Administration Fluticasone Propionate 2 spray 08/18/24 09:00 09/01/24 10:03 Fluticasone Propionate 0.05% Na Spr 16 Gm Btl (*Bkc) NASAL 2 spray DAILY KAELA Administration Furosemide 40 mg 08/31/24 16:40 09/01/24 09:56 Furosemide 40 Mg Tablet PO 40 mg BID@0800,1400 KAELA Administration Gabapentin 300 mg 08/17/24 21:00 08/31/24 21:33 Gabapentin 300 Mg Capsule PO 300 mg QHS KAELA Administration Glucagon 1 mg 08/17/24 17:18 Glucagon For Inj 1 Mg Vial IM PRN PRN Hypoglycemia Protocol Glucose 15 gm 08/17/24 17:18 Glucose Oral Gel 15 Gm Of Glucse In 37.5 Gm Tube PO PRN PRN Hypoglycemia Protocol Dextrose 1,000 mls @ 100 mls/hr 08/17/24 17:18 Dextrose 5% 1,000 Ml IVPB PRN PRN Hypoglycemia Protocol Insulin Aspart 2 - 4 units 08/17/24 21:00 08/31/24 20:19 Insulin Aspart (*Bkc) 100 Units/Ml SUB-Q Not Given HS KAELA Protocol Insulin Aspart 2 - 5 units 08/24/24 17:00 09/01/24 12:57 Insulin Aspart (*Bkc) 100 Units/Ml SUB-Q 3 units TIDWM KAELA Administration Protocol Insulin Aspart 15 units 08/26/24 12:00 09/01/24 12:57 Insulin Aspart (*Bkc) 100 Units/Ml SUB-Q 15 units TIDWM KAELA Administration Insulin Glargine 45 units 08/26/24 21:00 08/31/24 21:34 Insulin Glargine (*Bkc) 100 Units/Ml SUB-Q 45 units HS KAELA Administration Levothyroxine Sodium 50 mcg 08/18/24 06:30 09/01/24 05:33 Levothyroxine Sodium 50 Mcg Tablet PO 50 mcg DAILY@0630 KAELA Administration Metoprolol Succinate 25 mg 08/21/24 09:00 09/01/24 09:58 Metoprolol Succinate Ext Rel 25 Mg Tabcr PO 25 mg QAM KAELA Administration Ondansetron HCl 4 mg 08/17/24 17:17 Ondansetron Inj 4 Mg/2 Ml Vial IV PUSH Q6H PRN Nausea And Vomiting Pantoprazole Sodium 40 mg 08/18/24 09:00 09/01/24 10:00 Pantoprazole 40 Mg Tablet PO 40 mg QAM KAELA Administration Sodium Chloride 2 spray 08/17/24 20:42 08/27/24 09:18 Saline 0.65% Sha Soln 44 Ml Btl NASAL 2 spray QID PRN Administration nasal congestion/dryness Radiology Results: ITS Impressions Shoulder X-Ray 08/18/24 15:56 IMPRESSION: Osteopenia Head CT 08/20/24 09:56 IMPRESSION: 1. Stable moderate nonspecific cerebral white matter disease, which likely represents chronic small vessel ischemic disease. Pulmonary Perfusion Imaging 08/20/24 12:15 IMPRESSION: 1. Low probability for pulmonary embolism. Brain MRI 08/22/24 16:06 IMPRESSION: 1. Moderate nonspecific cerebral white matter disease and pontine disease, which likely represents chronic small vessel ischemic disease, stable from 05/26/2022. Chest X-Ray 08/22/24 18:38 IMPRESSION: Moderate interstitial edema. Subsegmental bibasilar atelectasis/consolidation. Possible small bilateral effusions. Hand X-Ray 08/23/24 15:26 IMPRESSION: Possible fracture in the distal radius. Clinical correlation and proper images are advised. Slight narrowing of the proximal and distal interphalangeal joints. Forearm X-Ray 08/24/24 11:01 IMPRESSION: 1. No fracture identified. 2. Loose bodies in the radiocarpal compartment. Modified Barium Swallow 08/24/24 14:17 IMPRESSION: Minimal pharyngeal dysphagia with trace shallow laryngeal penetration without aspiration. Please correlate with speech pathologist findings and specific feeding recommendations. Chest/Abdomen/Pelvis CT 08/27/24 09:37 IMPRESSION: 1. Mild atelectasis in the lungs. Lumbar Puncture Fluoroscopy 08/27/24 15:40 IMPRESSION: 1. Successful fluoro-guided lumbar puncture. Venous Doppler Study 08/29/24 23:29 IMPRESSION: 1. No deep venous thrombosis within the right lower extremity from the level of the mid femoral vein centrally to the right common femoral vein, as detailed above. Labs Labs: Laboratory Results - last 24 hr 08/31/24 08/31/24 09/01/24 16:46 20:03 05:58 Sodium 140 Potassium 4.3 Chloride 106 Carbon Dioxide 28 Anion Gap 6 BUN 31 H Creatinine 2.10 H Estim Creat Clear Calc 31 Estimated GFR 23 L Glucose 171 H POC Capillary Glucose 195 H 120 H Calcium 11.7 H Phosphorus 3.9 Albumin 3.5 09/01/24 09/01/24 08:29 12:07 Sodium Potassium Chloride Carbon Dioxide Anion Gap BUN Creatinine Estim Creat Clear Calc Estimated GFR Glucose POC Capillary Glucose 198 H 259 H Calcium Phosphorus Albumin
--- NOTE | 2024-09-01 13:37 | P.PNNP_ITS ---
Progress Note: A&P Assessment and Plan (1) Chronic kidney disease, stage 4 (severe): Code(s): N18.4 - Chronic kidney disease, stage 4 (severe) Status: Chronic Assessment and Plan: * baseline creatinine normally runs ~ 2.1 - 2.6mg/dl but has been as high as 2.9mg/dl * presumably secondary to hypertension, diabetes, vascular disease, and age- related change * Currently the creatinine is 2.1. * Volume status looks okay. Electrolytes look okay. (2) Confusion: Code(s): R41.0 - Disorientation, unspecified Status: Acute Assessment and Plan: * as noted on admission * extensive work-up and evaluation noted to date * sedative medications on hold * continue supportive therapy (3) Hypercalcemia: Code(s): E83.52 - Hypercalcemia Status: Acute Assessment and Plan: * known history * presumably due to known history of hyperparathyroidism * PTH is 130. FeCa high. c/w primary hpth (neg PT scan in 2018) hypercalcemia has been going on for a really long time. (There is a remote possibility that this could be secondary hyperparathyroidism cause by the kidney disease and then the high calcium is because of some calcium source such as bony Mets for Paget's disease or something, however after this long a period of time I think that metastatic disease would have been diagnosed.) For completeness will get a bone scan * was following with Endocrinology * was previously on Sensipar (but this was stopped a few months ago due to hypocalcemia) * Creatinine seems stable (4) UTI (urinary tract infection): Qualifiers: Urinary tract infection type: site unspecified Hematuria presence: without hematuria Qualified Code(s): N39.0 - Urinary tract infection, site not specified Code(s): N39.0 - Urinary tract infection, site not specified Status: Acute Assessment and Plan: * UA on admission suggestive * follow culture results noted * completed course of antibiotics (5) Hypertension: Code(s): I10 - Essential (primary) hypertension Status: Chronic Assessment and Plan: * reasonable control at this time * follow trend of hemodynamics (6) Type 2 diabetes mellitus: Qualifiers: 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: with senior care 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 Diabetes mellitus complication status: with kidney complications Diabetes mellitus complication detail: with chronic kidney disease Chronic kidney disease stage: stage 3 (moderate) Chronic kidney disease stage 3 subtype: stage 3b (GFR 30-44) Qualified Code(s): E11.22 - Type 2 diabetes mellitus with diabetic chronic kidney disease; N18.32 - Chronic kidney disease, stage 3b; 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 Daughter in the room No shortness of breath. She does have some swelling. Exam Narrative: General: elderly female sitting up in bed in NAD Heart: normal S1 and S2; no rub or gallop Lungs: decreased breath sounds at bases Abdomen: soft, nontender, nondistended, positive bowel sounds Extremities: no cyanosis or clubbing; 1+ edema Skin: No acute rash Objective Data Vital Signs Vital Signs: Vital Signs - 24 hr 08/31/24 13:38 08/31/24 14:00 08/31/24 19:58 Temperature 97.4 F L 97.9 F Pulse Rate 92 95 99 Respiratory Rate 20 20 18 Blood Pressure 179/69 H 165/88 H Pulse Oximetry 92 94 Oxygen Delivery Oxygen Flow Rate 08/31/24 20:22 08/31/24 20:29 08/31/24 20:30 Temperature Pulse Rate 93 90 Respiratory Rate 19 19 Blood Pressure Pulse Oximetry 94 Oxygen Delivery Nasal Cannula Oxygen Flow Rate 3 08/31/24 20:00 09/01/24 02:20 09/01/24 02:30 Temperature Pulse Rate 83 86 Respiratory Rate 20 20 Blood Pressure Pulse Oximetry 94 Oxygen Delivery Nasal Cannula Oxygen Flow Rate 3 09/01/24 05:17 09/01/24 09:58 09/01/24 10:17 Temperature 97.7 F Pulse Rate 95 78 Respiratory Rate 18 Blood Pressure 125/47 L Pulse Oximetry 93 Oxygen Delivery Nasal Cannula Oxygen Flow Rate 2 09/01/24 08:00 09/01/24 11:20 09/01/24 11:30 Temperature Pulse Rate 84 86 Respiratory Rate 20 20 Blood Pressure Pulse Oximetry Oxygen Delivery Nasal Cannula Oxygen Flow Rate 3 Intake/Output Intake/Output: Intake & Output 08/29/24 08/30/24 08/31/24 09/01/24 23:59 23:59 23:59 23:59 Intake Total 2667.5 2090 1276 660 Output Total 1200 1400 1710 650 Balance 1467.5 690 -434 10 Meds/Results Medications: Active Medications Generic Name Dose Route Start Last Admin Trade Name Freq PRN Reason Stop Dose Admin Acetaminophen 650 mg 08/17/24 16:39 09/01/24 10:00 Acetaminophen 325 Mg Tablet PO 650 mg Q4H PRN Administration Mild Pain (1-3) or Fever Albuterol/Ipratropium 3 ml 08/29/24 14:00 09/01/24 11:20 Ipratropium 0.5 Mg/Albuterol Sulfate 2.5 Mg Ampul.Neb 3 Ml INHALATION 3 ml [id number] KAELA Administration Allopurinol 300 mg 08/18/24 09:00 09/01/24 09:57 Allopurinol 300 Mg Tablet PO 300 mg DAILY KAELA Administration Aspirin 81 mg 08/18/24 09:00 09/01/24 10:00 Aspirin 81 Mg Enteric Tablet PO 81 mg QAM KAELA Administration Atorvastatin Calcium 10 mg 08/17/24 21:00 08/31/24 21:33 Atorvastatin 10 Mg Tablet PO 10 mg HS KAELA Administration Benzonatate 100 mg 08/17/24 20:42 08/26/24 10:07 Benzonatate 100 Mg Capsule PO 100 mg TID PRN Administration Cough Cyanocobalamin 1,000 mcg 08/31/24 09:00 09/01/24 09:57 Cyanocobalamin 1,000 Mcg Tablet PO 1,000 mcg QAM KAELA Administration Dextrose 12.5 gm 08/17/24 17:18 Dextrose 50% 25 Gm/50 Ml Syringe IV PUSH PRN PRN Hypoglycemia Protocol Empagliflozin 10 mg 08/24/24 09:00 09/01/24 10:00 Empagliflozin 10 Mg Tablet BY MOUTH 10 mg DAILY KAELA Administration Enoxaparin Sodium 40 mg 08/23/24 09:00 09/01/24 10:00 Enoxaparin 40 Mg/0.4 Ml Syringe SUB-Q 40 mg DAILY KAELA Administration Escitalopram Oxalate 20 mg 08/18/24 09:00 09/01/24 09:57 Escitalopram Oxalate 10 Mg Tablet PO 20 mg DAILY KAELA Administration Fluticasone Propionate 2 spray 08/18/24 09:00 09/01/24 10:03 Fluticasone Propionate 0.05% Na Spr 16 Gm Btl (*Bkc) NASAL 2 spray DAILY KAELA Administration Furosemide 40 mg 08/31/24 16:40 09/01/24 09:56 Furosemide 40 Mg Tablet PO 40 mg BID@0800,1400 KAELA Administration Gabapentin 300 mg 08/17/24 21:00 08/31/24 21:33 Gabapentin 300 Mg Capsule PO 300 mg QHS KAELA Administration Glucagon 1 mg 08/17/24 17:18 Glucagon For Inj 1 Mg Vial IM PRN PRN Hypoglycemia Protocol Glucose 15 gm 08/17/24 17:18 Glucose Oral Gel 15 Gm Of Glucse In 37.5 Gm Tube PO PRN PRN Hypoglycemia Protocol Dextrose 1,000 mls @ 100 mls/hr 08/17/24 17:18 Dextrose 5% 1,000 Ml IVPB PRN PRN Hypoglycemia Protocol Insulin Aspart 2 - 4 units 08/17/24 21:00 08/31/24 20:19 Insulin Aspart (*Bkc) 100 Units/Ml SUB-Q Not Given HS KAELA Protocol Insulin Aspart 2 - 5 units 08/24/24 17:00 09/01/24 12:57 Insulin Aspart (*Bkc) 100 Units/Ml SUB-Q 3 units TIDWM KAELA Administration Protocol Insulin Aspart 15 units 08/26/24 12:00 09/01/24 12:57 Insulin Aspart (*Bkc) 100 Units/Ml SUB-Q 15 units TIDWM KAELA Administration Insulin Glargine 45 units 08/26/24 21:00 08/31/24 21:34 Insulin Glargine (*Bkc) 100 Units/Ml SUB-Q 45 units HS KAELA Administration Levothyroxine Sodium 50 mcg 08/18/24 06:30 09/01/24 05:33 Levothyroxine Sodium 50 Mcg Tablet PO 50 mcg DAILY@0630 KAELA Administration Metoprolol Succinate 25 mg 08/21/24 09:00 09/01/24 09:58 Metoprolol Succinate Ext Rel 25 Mg Tabcr PO 25 mg QAM KAELA Administration Ondansetron HCl 4 mg 08/17/24 17:17 Ondansetron Inj 4 Mg/2 Ml Vial IV PUSH Q6H PRN Nausea And Vomiting Pantoprazole Sodium 40 mg 08/18/24 09:00 09/01/24 10:00 Pantoprazole 40 Mg Tablet PO 40 mg QAM KAELA Administration Sodium Chloride 2 spray 08/17/24 20:42 08/27/24 09:18 Saline 0.65% Sha Soln 44 Ml Btl NASAL 2 spray QID PRN Administration nasal congestion/dryness Radiology Results: ITS Impressions Shoulder X-Ray 08/18/24 15:56 IMPRESSION: Osteopenia Head CT 08/20/24 09:56 IMPRESSION: 1. Stable moderate nonspecific cerebral white matter disease, which likely represents chronic small vessel ischemic disease. Pulmonary Perfusion Imaging 08/20/24 12:15 IMPRESSION: 1. Low probability for pulmonary embolism. Brain MRI 08/22/24 16:06 IMPRESSION: 1. Moderate nonspecific cerebral white matter disease and pontine disease, which likely represents chronic small vessel ischemic disease, stable from 05/26/2022. Chest X-Ray 08/22/24 18:38 IMPRESSION: Moderate interstitial edema. Subsegmental bibasilar atelectasis/consolidation. Possible small bilateral effusions. Hand X-Ray 08/23/24 15:26 IMPRESSION: Possible fracture in the distal radius. Clinical correlation and proper images are advised. Slight narrowing of the proximal and distal interphalangeal joints. Forearm X-Ray 08/24/24 11:01 IMPRESSION: 1. No fracture identified. 2. Loose bodies in the radiocarpal compartment. Modified Barium Swallow 08/24/24 14:17 IMPRESSION: Minimal pharyngeal dysphagia with trace shallow laryngeal penetration without aspiration. Please correlate with speech pathologist findings and specific feeding recommendations. Chest/Abdomen/Pelvis CT 08/27/24 09:37 IMPRESSION: 1. Mild atelectasis in the lungs. Lumbar Puncture Fluoroscopy 08/27/24 15:40 IMPRESSION: 1. Successful fluoro-guided lumbar puncture. Venous Doppler Study 08/29/24 23:29 IMPRESSION: 1. No deep venous thrombosis within the right lower extremity from the level of the mid femoral vein centrally to the right common femoral vein, as detailed above. Labs Labs: Laboratory Results - last 24 hr 08/31/24 08/31/24 09/01/24 16:46 20:03 05:58 Sodium 140 Potassium 4.3 Chloride 106 Carbon Dioxide 28 Anion Gap 6 BUN 31 H Creatinine 2.10 H Estim Creat Clear Calc 31 Estimated GFR 23 L Glucose 171 H POC Capillary Glucose 195 H 120 H Calcium 11.7 H Phosphorus 3.9 Albumin 3.5 09/01/24 09/01/24 08:29 12:07 Sodium Potassium Chloride Carbon Dioxide Anion Gap BUN Creatinine Estim Creat Clear Calc Estimated GFR Glucose POC Capillary Glucose 198 H 259 H Calcium Phosphorus Albumin
[2024-09-01 17:13] LABS: Glucose Point of Care 147 mg/dl (65-105)
[2024-09-01] MEDS: INSULIN ASPART (*BKC) 100 UNITS/ML 18 UNITS SUB-Q (17:48)
[2024-09-01] MEDS: INSULIN GLARGINE (*BKC) 100 UNITS/ML 45 UNITS SUB-Q (20:30)
[2024-09-01] MEDS: GABAPENTIN 300 MG CAPSULE PO (20:32)
[2024-09-01] MEDS: ATORVASTATIN 10 MG TABLET PO (20:32)
[2024-09-01] MEDS: levETIRAcetam Tablet 250 MG, levETIRAcetam Tablet 500 MG 750 MG PO (20:32)
[2024-09-01 21:23] LABS: Glucose Point of Care 129 mg/dl (65-105)
[2024-09-02] VITALS (11 sets, daily range): BP systolic 127–130; BP diastolic 57–83; PULSE 83–105; RESP 16–20; TEMP 36.2–36.8; O2SAT 92–96
[2024-09-02 06:21] LABS: Albumin Level 3.3 g/dL (3.5-5.1); Anion Gap 4 mmol/L (4-12); Blood Urea Nitrogen 31 mg/dL (7-17); Calcium 11.5 mg/dL (8.4-10.2); Carbon Dioxide 29 mmol/L (22-30); Chloride 102 mmol/L (98-107); Estimated CRCL calculation 28 ml/min; Estimated Glomerular Filt Rate 21; Glucose 148 mg/dL (65-110); Phosphorus 3.8 mg/dL (2.5-4.5); Potassium 4.1 mmol/L (3.4-5.0); Sodium 135 mmol/L (137-145)
[2024-09-02] MEDS: LEVOTHYROXINE SODIUM 50 MCG TABLET PO (06:24)
[2024-09-02 08:14] LABS: Glucose Point of Care 172 mg/dl (65-105)
[2024-09-02] MEDS: IPRATROPIUM 0.5 MG/ALBUTEROL SULFATE 2.5 MG AMPUL.NEB 3 ML (08:43)
[2024-09-02] MEDS: IPRATROPIUM 0.5 MG/ALBUTEROL SULFATE 2.5 MG AMPUL.NEB 3 ML INHALATION ×3 (08:44→20:36)
[2024-09-02] MEDS: FLUTICASONE PROPIONATE 0.05% NA SPR 16 GM BTL (*BKC) 2 SPRAY NASAL (09:09)
[2024-09-02] MEDS: levETIRAcetam Tablet 250 MG, levETIRAcetam Tablet 500 MG 750 MG PO ×2 (09:10→20:18)
[2024-09-02] MEDS: allopurinoL 300 MG TABLET PO (09:10)
[2024-09-02] MEDS: METOPROLOL SUCCINATE EXT REL 25 MG TABCR PO (09:10)
[2024-09-02] MEDS: ENOXAPARIN 40 MG/0.4 ML SYRINGE SUB-Q (09:10)
[2024-09-02] MEDS: ESCITALOPRAM OXALATE 10 MG TABLET 20 MG PO (09:10)
[2024-09-02] MEDS: EMPAGLIFLOZIN 10 MG TABLET BY MOUTH (09:11)
[2024-09-02] MEDS: ASPIRIN 81 MG ENTERIC TABLET PO (09:12)
[2024-09-02] MEDS: CYANOCOBALAMIN 1,000 MCG TABLET 1000 MCG PO (09:12)
[2024-09-02] MEDS: FUROSEMIDE 40 MG TABLET PO ×2 (09:12→13:22)
[2024-09-02] MEDS: PANTOPRAZOLE 40 MG TABLET PO (09:12)
[2024-09-02] MEDS: INSULIN ASPART (*BKC) 100 UNITS/ML 18 UNITS SUB-Q ×3 (09:13→17:03)
--- NOTE | 2024-09-02 10:36 | P.PNNP_ITS ---
Progress Note: A&P Assessment and Plan (1) Chronic kidney disease, stage 4 (severe): Code(s): N18.4 - Chronic kidney disease, stage 4 (severe) Status: Chronic Assessment and Plan: * baseline creatinine normally runs ~ 2.1 - 2.6mg/dl but has been as high as 2.9mg/dl * presumably secondary to hypertension, diabetes, vascular disease, and age- related change * Currently the creatinine is 2.3 * Volume status looks okay. Electrolytes look okay. (2) Confusion: Code(s): R41.0 - Disorientation, unspecified Status: Acute Assessment and Plan: * as noted on admission * extensive work-up and evaluation noted to date * sedative medications on hold * continue supportive therapy (3) Hypercalcemia: Code(s): E83.52 - Hypercalcemia Status: Acute Assessment and Plan: * known history * presumably due to known history of hyperparathyroidism * PTH is 130. FeCa high. c/w primary hpth (neg PT scan in 2018) hypercalcemia has been going on for a really long time. (There is a remote possibility that this could be secondary hyperparathyroidism cause by the kidney disease and then the high calcium is because of some calcium source such as bony Mets for Paget's disease or something, however after this long a period of time I think that metastatic disease would have been diagnosed.) For completeness will get a bone scan * was should follow-up with endocrinology. * Today's calcium is about the same * Will give pamidronate just because there is a question of mental status issues. Because GFR is low, will give only 30mg (4) UTI (urinary tract infection): Qualifiers: Urinary tract infection type: site unspecified Hematuria presence: without hematuria Qualified Code(s): N39.0 - Urinary tract infection, site not specified Code(s): N39.0 - Urinary tract infection, site not specified Status: Acute Assessment and Plan: * completed course of antibiotics (5) Hypertension: Code(s): I10 - Essential (primary) hypertension Status: Chronic Assessment and Plan: * Systolic in the 120s to 180s. The patient is on metoprolol * * Not much protein in the urine. 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 No chest pain or shortness of breath Exam Narrative: General: elderly female sitting up in bed in NAD Heart: normal S1 and S2; no rub or gallop Lungs: decreased breath sounds at bases Abdomen: soft, nontender, nondistended, positive bowel sounds Extremities: 1+ edema Skin: No acute rash or subQ nodules Objective Data Vital Signs Vital Signs: Vital Signs - 24 hr 09/01/24 11:20 09/01/24 11:30 09/01/24 14:09 Temperature 97.5 F L Pulse Rate 84 86 95 Respiratory Rate 20 20 16 Blood Pressure 134/69 Pulse Oximetry 96 Oxygen Delivery Oxygen Flow Rate 09/01/24 20:09 09/01/24 20:00 09/02/24 06:00 Temperature 97.6 F 98 F Pulse Rate 95 90 Respiratory Rate 16 16 Blood Pressure 150/68 H 130/57 L Pulse Oximetry 93 93 96 Oxygen Delivery Nasal Cannula Oxygen Flow Rate 3 09/02/24 08:40 09/02/24 08:40 09/02/24 08:50 Temperature Pulse Rate 83 83 86 Respiratory Rate 20 20 20 Blood Pressure Pulse Oximetry 94 Oxygen Delivery Nasal Cannula Oxygen Flow Rate 2 09/02/24 09:10 Temperature Pulse Rate 102 H Respiratory Rate Blood Pressure Pulse Oximetry Oxygen Delivery Oxygen Flow Rate Intake/Output Intake/Output: Intake & Output 08/30/24 08/31/24 09/01/24 09/02/24 23:59 23:59 23:59 23:59 Intake Total 2090 1276 1450 510 Output Total 1400 1710 1450 250 Balance 690 -434 0 260 Meds/Results Medications: Active Medications Generic Name Dose Route Start Last Admin Trade Name Freq PRN Reason Stop Dose Admin Acetaminophen 650 mg 08/17/24 16:39 09/01/24 17:47 Acetaminophen 325 Mg Tablet PO 650 mg Q4H PRN Administration Mild Pain (1-3) or Fever Albuterol/Ipratropium 3 ml 08/29/24 14:00 09/02/24 08:44 Ipratropium 0.5 Mg/Albuterol Sulfate 2.5 Mg Ampul.Neb 3 Ml INHALATION 3 ml [id number] KAELA Administration Allopurinol 300 mg 08/18/24 09:00 09/02/24 09:10 Allopurinol 300 Mg Tablet PO 300 mg DAILY KAELA Administration Aspirin 81 mg 08/18/24 09:00 09/02/24 09:12 Aspirin 81 Mg Enteric Tablet PO 81 mg QAM KAELA Administration Atorvastatin Calcium 10 mg 08/17/24 21:00 09/01/24 20:32 Atorvastatin 10 Mg Tablet PO 10 mg HS KAELA Administration Benzonatate 100 mg 08/17/24 20:42 08/26/24 10:07 Benzonatate 100 Mg Capsule PO 100 mg TID PRN Administration Cough Cyanocobalamin 1,000 mcg 08/31/24 09:00 09/02/24 09:12 Cyanocobalamin 1,000 Mcg Tablet PO 1,000 mcg QAM KAELA Administration Dextrose 12.5 gm 08/17/24 17:18 Dextrose 50% 25 Gm/50 Ml Syringe IV PUSH PRN PRN Hypoglycemia Protocol Empagliflozin 10 mg 08/24/24 09:00 09/02/24 09:11 Empagliflozin 10 Mg Tablet BY MOUTH 10 mg DAILY KAELA Administration Enoxaparin Sodium 40 mg 08/23/24 09:00 09/02/24 09:10 Enoxaparin 40 Mg/0.4 Ml Syringe SUB-Q 40 mg DAILY KAELA Administration Escitalopram Oxalate 20 mg 08/18/24 09:00 09/02/24 09:10 Escitalopram Oxalate 10 Mg Tablet PO 20 mg DAILY KAELA Administration Fluticasone Propionate 2 spray 08/18/24 09:00 09/02/24 09:09 Fluticasone Propionate 0.05% Na Spr 16 Gm Btl (*Bkc) NASAL 2 spray DAILY KAELA Administration Furosemide 40 mg 08/31/24 16:40 09/02/24 09:12 Furosemide 40 Mg Tablet PO 40 mg BID@0800,1400 KAELA Administration Gabapentin 300 mg 08/17/24 21:00 09/01/24 20:32 Gabapentin 300 Mg Capsule PO 300 mg QHS KAELA Administration Glucagon 1 mg 08/17/24 17:18 Glucagon For Inj 1 Mg Vial IM PRN PRN Hypoglycemia Protocol Glucose 15 gm 08/17/24 17:18 Glucose Oral Gel 15 Gm Of Glucse In 37.5 Gm Tube PO PRN PRN Hypoglycemia Protocol Dextrose 1,000 mls @ 100 mls/hr 08/17/24 17:18 Dextrose 5% 1,000 Ml IVPB PRN PRN Hypoglycemia Protocol Insulin Aspart 2 - 4 units 08/17/24 21:00 09/01/24 20:32 Insulin Aspart (*Bkc) 100 Units/Ml SUB-Q Not Given HS KAELA Protocol Insulin Aspart 2 - 5 units 08/24/24 17:00 09/02/24 09:13 Insulin Aspart (*Bkc) 100 Units/Ml SUB-Q Not Given TIDWM KAELA Protocol Insulin Aspart 18 units 09/01/24 17:00 09/02/24 09:13 Insulin Aspart (*Bkc) 100 Units/Ml SUB-Q 18 units TIDWM KAELA Administration Insulin Glargine 45 units 08/26/24 21:00 09/01/24 20:30 Insulin Glargine (*Bkc) 100 Units/Ml SUB-Q 45 units HS KAELA Administration Levetiracetam 250 mg/ 750 mg 09/01/24 21:00 09/02/24 09:10 Levetiracetam 500 mg PO 750 mg Q12HR KAELA Administration Levothyroxine Sodium 50 mcg 08/18/24 06:30 09/02/24 06:24 Levothyroxine Sodium 50 Mcg Tablet PO 50 mcg DAILY@0630 KAELA Administration Metoprolol Succinate 25 mg 08/21/24 09:00 09/02/24 09:10 Metoprolol Succinate Ext Rel 25 Mg Tabcr PO 25 mg QAM KAELA Administration Ondansetron HCl 4 mg 08/17/24 17:17 Ondansetron Inj 4 Mg/2 Ml Vial IV PUSH Q6H PRN Nausea And Vomiting Pantoprazole Sodium 40 mg 08/18/24 09:00 09/02/24 09:12 Pantoprazole 40 Mg Tablet PO 40 mg QAM KAELA Administration Sodium Chloride 2 spray 08/17/24 20:42 08/27/24 09:18 Saline 0.65% Sha Soln 44 Ml Btl NASAL 2 spray QID PRN Administration nasal congestion/dryness Radiology Results: ITS Impressions Shoulder X-Ray 08/18/24 15:56 IMPRESSION: Osteopenia Head CT 08/20/24 09:56 IMPRESSION: 1. Stable moderate nonspecific cerebral white matter disease, which likely represents chronic small vessel ischemic disease. Pulmonary Perfusion Imaging 08/20/24 12:15 IMPRESSION: 1. Low probability for pulmonary embolism. Brain MRI 08/22/24 16:06 IMPRESSION: 1. Moderate nonspecific cerebral white matter disease and pontine disease, which likely represents chronic small vessel ischemic disease, stable from 05/26/2022. Chest X-Ray 08/22/24 18:38 IMPRESSION: Moderate interstitial edema. Subsegmental bibasilar atelectasis/consolidation. Possible small bilateral effusions. Hand X-Ray 08/23/24 15:26 IMPRESSION: Possible fracture in the distal radius. Clinical correlation and proper images are advised. Slight narrowing of the proximal and distal interphalangeal joints. Forearm X-Ray 08/24/24 11:01 IMPRESSION: 1. No fracture identified. 2. Loose bodies in the radiocarpal compartment. Modified Barium Swallow 08/24/24 14:17 IMPRESSION: Minimal pharyngeal dysphagia with trace shallow laryngeal penetration without aspiration. Please correlate with speech pathologist findings and specific feeding recommendations. Chest/Abdomen/Pelvis CT 08/27/24 09:37 IMPRESSION: 1. Mild atelectasis in the lungs. Lumbar Puncture Fluoroscopy 08/27/24 15:40 IMPRESSION: 1. Successful fluoro-guided lumbar puncture. Venous Doppler Study 08/29/24 23:29 IMPRESSION: 1. No deep venous thrombosis within the right lower extremity from the level of the mid femoral vein centrally to the right common femoral vein, as detailed above. Labs Labs: Laboratory Results - last 24 hr 09/01/24 09/01/24 09/01/24 12:07 17:10 20:16 Sodium Potassium Chloride Carbon Dioxide Anion Gap BUN Creatinine Estim Creat Clear Calc Estimated GFR Glucose POC Capillary Glucose 259 H 147 H 129 H Calcium Phosphorus Albumin 09/02/24 09/02/24 05:52 08:07 Sodium 135 L Potassium 4.1 Chloride 102 Carbon Dioxide 29 Anion Gap 4 BUN 31 H Creatinine 2.30 H Estim Creat Clear Calc 28 Estimated GFR 21 L Glucose 148 H POC Capillary Glucose 172 H Calcium 11.5 H Phosphorus 3.8 Albumin 3.3 L
[2024-09-02 11:42] LABS: Glucose Point of Care 230 mg/dl (65-105)
[2024-09-02] MEDS: amLODIPine BESYLATE 2.5 MG TABLET PO (12:06)
[2024-09-02] MEDS: INSULIN ASPART (*BKC) 100 UNITS/ML SUB-Q ×3 (12:12→21:24)
--- NOTE | 2024-09-02 12:32 | PM.IMPN ---
Progress Note: A&P Assessment and Plan (1) Confusion: Code(s): R41.0 - Disorientation, unspecified Status: Acute Assessment and Plan: Patient had increasing altered mental status since admission. Patient slow to respond, able follow simple commands, staring into space. EEG 08/27 showing abnormal EEG due to presence of diffuse background slowing suggestive of generalized encephalopathy Such as may be seen with bihemispheric lesions or metabolic encephalopathy. No focal or paroxysmal epileptiform abnormalities were seen. ABG within normal limits. Ammonia level negative. TSH normal. VitD deficiency noted related to hypercalcemia. HIV negative in Fe. B12 low end of normal at 303. B12 replaced. MRI shows moderate nonspecific cerebral white matter disease and pontine disease, which likely represents chronic small vessel ischemic disease, stable from 05/26/2022. Gabapentin, allopurinol and narcotic medications were held Was on Fioricet prn but may be taking this more regularly so consider withdrawal Confusion appears to be multifactorial from dementia, withdrawal, hypercalcemia, hospital-acquired hypoactive delirium and/or psychiatric issues. Consider occult seizures. Consider related to uremia, hypercalcemia and/or being off Fiorcet LP performed 08/27/2024. Negative for bacterial. Viral etiology still possible so acyclovir started. Speech therapy note reviewed. Diet adjusted CSF HSV PCR was negative so Acyclovir stopped. VDRL and EBV DNA also negative. Neurology consulted and recommended pt to follow-up outpatient in 3 weeks for Alzheimer's workup. Keppra started last night. Follow for signs of improvement. (2) Hyperparathyroidism: Code(s): E21.3 - Hyperparathyroidism, unspecified Status: Acute Assessment and Plan: Hypercalcemia noted. Started on IV fluids as BRADY also worsening. iPTH elevated which explains the hypercalcemia. [id number] probably related to the hypercalcemia. TSH normal. iPTH 136 (and has been elevated since 2021) Calcium level better with IV fluids. Calcium stable in the 11 range Bone scan ordered. Follow off IV fluids. (3) Acute respiratory failure with hypoxia: Code(s): J96.01 - Acute respiratory failure with hypoxia Status: Acute Assessment and Plan: Patient is not on any baseline oxygen during the day however is requiring 2-4 L nasal cannula now due to hypoxia in the ER with oxygen saturation of 87% on room air. CXR showing airspace opacities in the lower lung zones. BNP 480. Respiratory panel was negative for influenza a and B, RSV, COVID ABG showed normal pH of 7.366, pCO2 46.2, PO2 58.7, bicarb 25.9 on 2L Patient was started on abx while in the ED WBC count was normal at 8.6, she was afebrile D-dimer mildly elevated but V/Q scan low probability and LE venous doppler was negative (limited study and could only get right LE) EKG showing sinus rhythm with a rate of 66, QTC 423 CT chest 08/27 showing mild atelectasis Wean O2 as tolerated (4) CHF (congestive heart failure), NYHA class I: Qualifiers: Congestive heart failure type: unspecified Qualified Code(s): I50.9 - Heart failure, unspecified Code(s): I50.9 - Heart failure, unspecified Status: Acute Assessment and Plan: Echo from 12/2021 showed normal LV systolic function (EF of 65-70%), grade 1 diastolic dysfunction. CXR reporting airspace opacities in the lower lung zones likely atelectasis. BNP 483 A one time dose of 40 mg of IV Lasix ordered. Further diuresis held considering renal function Repeat Echo EF 65-70% Lasix was on hold. Renal function stablized. We resumed home Lasix at half dose. Cr up to 2.3 today. Follow. (5) Type 2 diabetes mellitus: Qualifiers: Diabetes mellitus senior care insulin use: with senior care use Diabetes mellitus complication status: with kidney complications Diabetes mellitus complication detail: with chronic kidney disease Chronic kidney disease stage: stage 3 (moderate) Chronic kidney disease stage 3 subtype: stage 3b (GFR 30-44) Qualified Code(s): E11.22 - Type 2 diabetes mellitus with diabetic chronic kidney disease; N18.32 - Chronic kidney disease, stage 3b; Z79.4 - penitentiary (current) use of insulin Code(s): E11.9 - Type 2 diabetes mellitus without complications Status: Chronic Assessment and Plan: A1c 9.5%. The patient's blood glucose was reviewed on 09/02 Glucose better controlled. Glucose 172 this morning. Continue AccuCheks covering with sliding scale. Hypoglycemia protocol available as needed. Diabetic diet. Continue to monitor. (6) Chronic kidney disease, stage IV (severe): Code(s): N18.4 - Chronic kidney disease, stage 4 (severe) Status: Chronic Assessment and Plan: Creatinine 2.9, EGFR 16 on admission. Baseline creatinine 2.1-2.6 Cr up to 3.3 so diuretics stopped. Was on IV fluids and Cr trended down to 2.1 Resumed oral lasix at half home dose and Cr up to 2.3 today Follow (7) Hypertension: Code(s): I10 - Essential (primary) hypertension Status: Chronic Assessment and Plan: Patient's blood pressure was reviewed on 09/02 Blood pressure better controlled with resuming the Lasix. SBP 120-150 range Norvasc added today Will continue to follow (8) Obstructive sleep apnea on CPAP: Code(s): G47.33 - Obstructive sleep apnea (adult) (pediatric); Z99.89 - Dependence on other enabling machines and devices Status: Chronic Assessment and Plan: Patient does not wear CPAP but only wears 2L of oxygen at night only ABG as above Continue O2 at night (9) UTI (urinary tract infection): Qualifiers: Urinary tract infection type: site unspecified Hematuria presence: without hematuria Qualified Code(s): N39.0 - Urinary tract infection, site not specified Code(s): N39.0 - Urinary tract infection, site not specified Status: Acute Assessment and Plan: UA is consistent with UTI. UCx collected. Rocephin started. BCx negative. UCx grew Citrobacter that was essentially odonnell-sensitive. Rocephin x 3 days then changed to Cefepime then Bactrim to complete a course. Off abx currently (10) Hypothyroidism: Qualifiers: Hypothyroidism type: acquired Qualified Code(s): E03.9 - Hypothyroidism, unspecified Code(s): E03.9 - Hypothyroidism, unspecified Status: Chronic Assessment and Plan: TSH normal. Continue Synthroid (11) Elevated d-dimer: Code(s): R79.89 - Other specified abnormal findings of blood chemistry Status: Acute Assessment and Plan: As above. (12) Radial styloid fracture: Qualifiers: Encounter type: initial encounter Fracture type: closed Fracture alignment: nondisplaced Laterality: right Qualified Code(s): S52.514A - Nondisplaced fracture of right radial styloid process, initial encounter for closed fracture Code(s): S52.513A - Displaced fracture of unspecified radial styloid process, initial encounter for closed fracture Status: Acute Assessment and Plan: Right subacute stylod fx. Orthopedics consulted Brace for support Okay for range of motion Platform walker weight-bearing through elbow Brace for 4-6 weeks and follow-up outpatient clinic Plan DVT prophylaxis - Lovenox Code status - full Subjective Date/time seen: 09/02/24 12:32 Interval history: 74yo female with CHF, CKD, chronic resp failure on home O2, DM, ABDIAZIZ and HTN here for weakness and low BP. More confused and aphasic overnight and neurology informed. Keppra started last night. Review of Systems Review of Systems: ROS unobtainable: Yes unobtainable due to mental status Exam Narrative: AF 98.0 130/57 102 20 94% 2L Gen - NARD sitting up in bed Chest - few basilar crackles o/w distant, CV - RRR S1/S2 Abd - Soft, obese Ext - no pedal edema. 2+ DP pulses. Right wrist in soft cast. Neuro - Responsive. still slow to respond but improved. Able to say her name quickly. Knows the year but then perseverates. Psych - odd affect. Skin - Warm and dry Objective Data Vital Signs Vital Signs: Vital Signs - 24 hr 09/01/24 14:09 09/01/24 20:09 09/01/24 20:00 Temperature 97.5 F L 97.6 F Pulse Rate 95 95 Respiratory Rate 16 16 Blood Pressure 134/69 150/68 H Pulse Oximetry 96 93 93 Oxygen Delivery Nasal Cannula Oxygen Flow Rate 3 09/02/24 06:00 09/02/24 08:40 09/02/24 08:40 Temperature 98 F Pulse Rate 90 83 83 Respiratory Rate 16 20 20 Blood Pressure 130/57 L Pulse Oximetry 96 94 Oxygen Delivery Nasal Cannula Oxygen Flow Rate 2 09/02/24 08:50 09/02/24 09:10 Temperature Pulse Rate 86 102 H Respiratory Rate 20 Blood Pressure Pulse Oximetry Oxygen Delivery Oxygen Flow Rate Intake/Output Intake/Output: Intake & Output 08/30/24 08/31/24 09/01/24 09/02/24 23:59 23:59 23:59 23:59 Intake Total 2090 1276 1450 990 Output Total 1400 1710 1450 250 Balance 690 -434 0 740 Meds/Results Medications: Active Medications Generic Name Dose Route Start Last Admin Trade Name Freq PRN Reason Stop Dose Admin Acetaminophen 650 mg 08/17/24 16:39 09/01/24 17:47 Acetaminophen 325 Mg Tablet PO 650 mg Q4H PRN Administration Mild Pain (1-3) or Fever Albuterol/Ipratropium 3 ml 08/29/24 14:00 09/02/24 08:44 Ipratropium 0.5 Mg/Albuterol Sulfate 2.5 Mg Ampul.Neb 3 Ml INHALATION 3 ml [id number] KAELA Administration Allopurinol 300 mg 08/18/24 09:00 09/02/24 09:10 Allopurinol 300 Mg Tablet PO 300 mg DAILY KAELA Administration Amlodipine Besylate 2.5 mg 09/02/24 10:45 09/02/24 12:06 Amlodipine Besylate 2.5 Mg Tablet PO 2.5 mg QAM KAELA Administration Aspirin 81 mg 08/18/24 09:00 09/02/24 09:12 Aspirin 81 Mg Enteric Tablet PO 81 mg QAM KAELA Administration Atorvastatin Calcium 10 mg 08/17/24 21:00 09/01/24 20:32 Atorvastatin 10 Mg Tablet PO 10 mg HS KAELA Administration Benzonatate 100 mg 08/17/24 20:42 08/26/24 10:07 Benzonatate 100 Mg Capsule PO 100 mg TID PRN Administration Cough Cyanocobalamin 1,000 mcg 08/31/24 09:00 09/02/24 09:12 Cyanocobalamin 1,000 Mcg Tablet PO 1,000 mcg QAM KAELA Administration Dextrose 12.5 gm 08/17/24 17:18 Dextrose 50% 25 Gm/50 Ml Syringe IV PUSH PRN PRN Hypoglycemia Protocol Empagliflozin 10 mg 08/24/24 09:00 09/02/24 09:11 Empagliflozin 10 Mg Tablet BY MOUTH 10 mg DAILY KAELA Administration Enoxaparin Sodium 40 mg 08/23/24 09:00 09/02/24 09:10 Enoxaparin 40 Mg/0.4 Ml Syringe SUB-Q 40 mg DAILY KAELA Administration Escitalopram Oxalate 20 mg 08/18/24 09:00 09/02/24 09:10 Escitalopram Oxalate 10 Mg Tablet PO 20 mg DAILY KAELA Administration Fluticasone Propionate 2 spray 08/18/24 09:00 09/02/24 09:09 Fluticasone Propionate 0.05% Na Spr 16 Gm Btl (*Bkc) NASAL 2 spray DAILY KAELA Administration Furosemide 40 mg 08/31/24 16:40 09/02/24 09:12 Furosemide 40 Mg Tablet PO 40 mg BID@0800,1400 KAELA Administration Gabapentin 300 mg 08/17/24 21:00 09/01/24 20:32 Gabapentin 300 Mg Capsule PO 300 mg QHS KAELA Administration Glucagon 1 mg 08/17/24 17:18 Glucagon For Inj 1 Mg Vial IM PRN PRN Hypoglycemia Protocol Glucose 15 gm 08/17/24 17:18 Glucose Oral Gel 15 Gm Of Glucse In 37.5 Gm Tube PO PRN PRN Hypoglycemia Protocol Dextrose 1,000 mls @ 100 mls/hr 08/17/24 17:18 Dextrose 5% 1,000 Ml IVPB PRN PRN Hypoglycemia Protocol Pamidronate Disodium 30 mg/ 510 mls @ 125 mls/hr 09/02/24 11:30 Dextrose IVPB 09/02/24 15:34 ONCE ONE Insulin Aspart 2 - 4 units 08/17/24 21:00 09/01/24 20:32 Insulin Aspart (*Bkc) 100 Units/Ml SUB-Q Not Given HS KAELA Protocol Insulin Aspart 2 - 5 units 08/24/24 17:00 09/02/24 12:12 Insulin Aspart (*Bkc) 100 Units/Ml SUB-Q 2 units TIDWM KAELA Administration Protocol Insulin Aspart 18 units 09/01/24 17:00 09/02/24 12:12 Insulin Aspart (*Bkc) 100 Units/Ml SUB-Q 18 units TIDWM KAELA Administration Insulin Glargine 45 units 08/26/24 21:00 09/01/24 20:30 Insulin Glargine (*Bkc) 100 Units/Ml SUB-Q 45 units HS KAELA Administration Levetiracetam 250 mg/ 750 mg 09/01/24 21:00 09/02/24 09:10 Levetiracetam 500 mg PO 750 mg Q12HR KAELA Administration Levothyroxine Sodium 50 mcg 08/18/24 06:30 09/02/24 06:24 Levothyroxine Sodium 50 Mcg Tablet PO 50 mcg DAILY@0630 KAELA Administration Metoprolol Succinate 25 mg 08/21/24 09:00 09/02/24 09:10 Metoprolol Succinate Ext Rel 25 Mg Tabcr PO 25 mg QAM KAELA Administration Ondansetron HCl 4 mg 08/17/24 17:17 Ondansetron Inj 4 Mg/2 Ml Vial IV PUSH Q6H PRN Nausea And Vomiting Pantoprazole Sodium 40 mg 08/18/24 09:00 09/02/24 09:12 Pantoprazole 40 Mg Tablet PO 40 mg QAM KAELA Administration Sodium Chloride 2 spray 08/17/24 20:42 08/27/24 09:18 Saline 0.65% Sha Soln 44 Ml Btl NASAL 2 spray QID PRN Administration nasal congestion/dryness Radiology Results: ITS Impressions Shoulder X-Ray 08/18/24 15:56 IMPRESSION: Osteopenia Head CT 08/20/24 09:56 IMPRESSION: 1. Stable moderate nonspecific cerebral white matter disease, which likely represents chronic small vessel ischemic disease. Pulmonary Perfusion Imaging 08/20/24 12:15 IMPRESSION: 1. Low probability for pulmonary embolism. Brain MRI 08/22/24 16:06 IMPRESSION: 1. Moderate nonspecific cerebral white matter disease and pontine disease, which likely represents chronic small vessel ischemic disease, stable from 05/26/2022. Chest X-Ray 08/22/24 18:38 IMPRESSION: Moderate interstitial edema. Subsegmental bibasilar atelectasis/consolidation. Possible small bilateral effusions. Hand X-Ray 08/23/24 15:26 IMPRESSION: Possible fracture in the distal radius. Clinical correlation and proper images are advised. Slight narrowing of the proximal and distal interphalangeal joints. Forearm X-Ray 08/24/24 11:01 IMPRESSION: 1. No fracture identified. 2. Loose bodies in the radiocarpal compartment. Modified Barium Swallow 08/24/24 14:17 IMPRESSION: Minimal pharyngeal dysphagia with trace shallow laryngeal penetration without aspiration. Please correlate with speech pathologist findings and specific feeding recommendations. Chest/Abdomen/Pelvis CT 08/27/24 09:37 IMPRESSION: 1. Mild atelectasis in the lungs. Lumbar Puncture Fluoroscopy 08/27/24 15:40 IMPRESSION: 1. Successful fluoro-guided lumbar puncture. Venous Doppler Study 08/29/24 23:29 IMPRESSION: 1. No deep venous thrombosis within the right lower extremity from the level of the mid femoral vein centrally to the right common femoral vein, as detailed above. Labs Labs: Laboratory Results - last 24 hr 09/01/24 09/01/24 09/02/24 17:10 20:16 05:52 Sodium 135 L Potassium 4.1 Chloride 102 Carbon Dioxide 29 Anion Gap 4 BUN 31 H Creatinine 2.30 H Estim Creat Clear Calc 28 Estimated GFR 21 L Glucose 148 H POC Capillary Glucose 147 H 129 H Calcium 11.5 H Phosphorus 3.8 Albumin 3.3 L 09/02/24 09/02/24 08:07 11:34 Sodium Potassium Chloride Carbon Dioxide Anion Gap BUN Creatinine Estim Creat Clear Calc Estimated GFR Glucose POC Capillary Glucose 172 H 230 H Calcium Phosphorus Albumin
[2024-09-02] MEDS: PAMIDRONATE DISODIUM 30 MG in DEXTROSE 5% IN WATER 500 ML 125 MG IVPB (13:10)
[2024-09-02 16:59] LABS: Glucose Point of Care 236 mg/dl (65-105)
[2024-09-02] MEDS: ATORVASTATIN 10 MG TABLET PO (20:18)
[2024-09-02] MEDS: GABAPENTIN 300 MG CAPSULE PO (20:18)
[2024-09-02] MEDS: INSULIN GLARGINE (*BKC) 100 UNITS/ML 45 UNITS SUB-Q (21:24)
[2024-09-03] VITALS (12 sets, daily range): BP systolic 131–134; BP diastolic 60–68; PULSE 82–100; RESP 16–20; TEMP 36.2–36.4; O2SAT 93–98; BMI 10.0
[2024-09-03 05:44] LABS: Glucose Point of Care 232 mg/dl (65-105)
[2024-09-03] MEDS: LEVOTHYROXINE SODIUM 50 MCG TABLET PO (05:57)
[2024-09-03 06:03] LABS: Hemoglobin 12.5 g/dL (12.0-15.0); Mean Corpuscular HGB Conc 29.8 g/dl (32-36); Mean Corpuscular Hemoglobin 29.3 pg (26-34); Mean Corpuscular Volume 98.6 fl (80-100); Mean Platelet Volume 9.8 fl (7.4-10.4); Platelet Count Result 338 k/mm3 (150-375); Red Blood Count 4.26 M/mm3 (4.2-5.4); Red Cell Distribution Width 16.9 % (11.5-14.5); White Blood Count 7.3 K/mm3 (4.5-10.0)
[2024-09-03 06:11] LABS: Anion Gap 7 mmol/L (4-12); Blood Urea Nitrogen 39 mg/dL (7-17); Calcium 11.6 mg/dL (8.4-10.2); Carbon Dioxide 29 mmol/L (22-30); Chloride 99 mmol/L (98-107); Estimated CRCL calculation 25 ml/min; Estimated Glomerular Filt Rate 18; Glucose 183 mg/dL (65-110); Sodium 135 mmol/L (137-145)
[2024-09-03] MEDS: IPRATROPIUM 0.5 MG/ALBUTEROL SULFATE 2.5 MG AMPUL.NEB 3 ML INHALATION ×3 (07:16→20:53)
[2024-09-03 08:29] LABS: Glucose Point of Care 212 mg/dl (65-105)
[2024-09-03] MEDS: FLUTICASONE PROPIONATE 0.05% NA SPR 16 GM BTL (*BKC) 2 SPRAY NASAL (09:32)
[2024-09-03] MEDS: ENOXAPARIN 40 MG/0.4 ML SYRINGE SUB-Q (09:32)
[2024-09-03] MEDS: levETIRAcetam Tablet 250 MG, levETIRAcetam Tablet 500 MG 750 MG PO ×2 (09:33→20:33)
[2024-09-03] MEDS: METOPROLOL SUCCINATE EXT REL 25 MG TABCR PO (09:33)
[2024-09-03] MEDS: PANTOPRAZOLE 40 MG TABLET PO (09:33)
[2024-09-03] MEDS: allopurinoL 300 MG TABLET PO (09:33)
[2024-09-03] MEDS: CYANOCOBALAMIN 1,000 MCG TABLET 1000 MCG PO (09:33)
[2024-09-03] MEDS: ASPIRIN 81 MG ENTERIC TABLET PO (09:33)
[2024-09-03] MEDS: amLODIPine BESYLATE 2.5 MG TABLET PO (09:33)
[2024-09-03] MEDS: ESCITALOPRAM OXALATE 10 MG TABLET 20 MG PO (09:33)
[2024-09-03] MEDS: EMPAGLIFLOZIN 10 MG TABLET BY MOUTH (09:33)
[2024-09-03 09:41] LABS: Source CSF
[2024-09-03] MEDS: INSULIN ASPART (*BKC) 100 UNITS/ML 18 UNITS SUB-Q ×3 (09:49→17:39)
[2024-09-03] MEDS: INSULIN ASPART (*BKC) 100 UNITS/ML SUB-Q ×3 (09:50→17:40)
--- NOTE | 2024-09-03 11:09 | PCOTNOTE ---
The patient treatment was not able to be completed not appropriate at this time. Will plan to continue treatment per plan of care.
[2024-09-03 12:00] LABS: Glucose Point of Care 269 mg/dl (65-105)
--- NOTE | 2024-09-03 12:00 | P.PNNP_ITS ---
Progress Note: A&P Assessment and Plan (1) Chronic kidney disease, stage 4 (severe): Code(s): N18.4 - Chronic kidney disease, stage 4 (severe) Status: Chronic Assessment and Plan: * baseline creatinine normally runs ~ 2.1 - 2.6mg/dl but has been as high as 2.9mg/dl * presumably secondary to hypertension, diabetes, vascular disease, and age- related change * today the creatinine bronwyn from 2.3-2.6. It is not as high as it was in the but is definitely trending upwards. I do not think uremia would be playing a role in her mental status. * The patient has no swelling. Will check a chest x-ray. She does not look fluid overloaded. I agree with holding the diuretics. * Consider some fluids if she stops drinking but yesterday she had a L in and overnight she had 600cc in. (2) Confusion: Code(s): R41.0 - Disorientation, unspecified Status: Acute Assessment and Plan: * as noted on admission * extensive work-up and evaluation noted to date * sedative medications on hold * Calcium level is still high. He received pamidronate yesterday. This medicine works slowly. Because of her mental status will give calcitonin. * pCO2 has been high in the past. Will check another blood (3) Hypercalcemia: Code(s): E83.52 - Hypercalcemia Status: Acute Assessment and Plan: * known history * presumably due to known history of hyperparathyroidism * PTH is 130. FeCa high. c/w primary hpth (neg PT scan in 2018) hypercalcemia has been going on for a really long time. (There is a remote possibility that this could be secondary hyperparathyroidism cause by the kidney disease and then the high calcium is because of some calcium source such as bony Mets for Paget's disease or something, however after this long a period of time I think that metastatic disease would have been diagnosed.) For completeness will get a bone scan * was should follow-up with endocrinology. * Today's calcium is about the same * With her symptoms, will give calcitonin on top of the pamidronate that she got yesterday. (4) UTI (urinary tract infection): Qualifiers: Urinary tract infection type: site unspecified Hematuria presence: without hematuria Qualified Code(s): N39.0 - Urinary tract infection, site not specified Code(s): N39.0 - Urinary tract infection, site not specified Status: Acute Assessment and Plan: * completed course of antibiotics (5) Hypertension: Code(s): I10 - Essential (primary) hypertension Status: Chronic Assessment and Plan: * Systolic in the 120s to 130s. The patient is on metoprolol And amlodipine (6) Type 2 diabetes mellitus: Qualifiers: Diabetes mellitus nursing home insulin use: with nursing home use Diabetes mellitus complication status: with kidney complications Diabetes mellitus complication detail: with chronic kidney disease Chronic kidney disease stage: stage 3 (moderate) Chronic kidney disease stage 3 subtype: stage 3b (GFR 30-44) Qualified Code(s): E11.22 - Type 2 diabetes mellitus with diabetic chronic kidney disease; N18.32 - Chronic kidney disease, stage 3b; Z79.4 - residential (current) use of insulin Code(s): E11.9 - Type 2 diabetes mellitus without complications Status: Chronic Assessment and Plan: * follow accu-cheks * glycemic control per hospitalists Subjective Date/time seen: 09/03/24 12:00 Interval history: Patient is more sleepy today. Nursing says that the patient is in an out and has been for the last week. Exam Narrative: General: elderly female lying in bed not interactive in NAD Heart: normal S1 and S2; no rub or gallop Lungs: decreased breath sounds at bases Abdomen: soft, nontender, nondistended, positive bowel sounds Extremities: 1+ edema Skin: No acute rash or subQ nodules Objective Data Vital Signs Vital Signs: Vital Signs - 24 hr 09/02/24 13:39 09/02/24 14:25 09/02/24 14:36 Temperature 98.2 F Pulse Rate 105 H 92 88 Respiratory Rate 18 20 20 Blood Pressure 127/83 Pulse Oximetry 92 Oxygen Delivery Oxygen Flow Rate 09/02/24 20:38 09/02/24 20:39 09/02/24 20:00 Temperature Pulse Rate 93 Respiratory Rate 18 Blood Pressure Pulse Oximetry 93 93 Oxygen Delivery Nasal Cannula Nasal Cannula Oxygen Flow Rate 2 2 09/02/24 22:06 09/03/24 05:56 09/03/24 07:16 Temperature 97.1 F L 97.2 F L Pulse Rate 99 90 Respiratory Rate 16 20 Blood Pressure 129/57 L 132/66 Pulse Oximetry 94 98 95 Oxygen Delivery Nasal Cannula Oxygen Flow Rate 2 09/03/24 07:16 09/03/24 07:21 09/03/24 09:33 Temperature Pulse Rate 87 88 92 Respiratory Rate 18 18 Blood Pressure Pulse Oximetry Oxygen Delivery Oxygen Flow Rate Intake/Output Intake/Output: Intake & Output 08/31/24 09/01/24 09/02/24 09/03/24 23:59 23:59 23:59 23:59 Intake Total 1276 1450 1550 636 Output Total 1710 1450 250 300 Balance -434 0 1300 336 Meds/Results Medications: Active Medications Generic Name Dose Route Start Last Admin Trade Name Freq PRN Reason Stop Dose Admin Acetaminophen 650 mg 08/17/24 16:39 09/01/24 17:47 Acetaminophen 325 Mg Tablet PO 650 mg Q4H PRN Administration Mild Pain (1-3) or Fever Albuterol/Ipratropium 3 ml 08/29/24 14:00 09/03/24 07:16 Ipratropium 0.5 Mg/Albuterol Sulfate 2.5 Mg Ampul.Neb 3 Ml INHALATION 3 ml [id number] KAELA Administration Allopurinol 300 mg 08/18/24 09:00 09/03/24 09:33 Allopurinol 300 Mg Tablet PO 300 mg DAILY KAELA Administration Amlodipine Besylate 2.5 mg 09/02/24 10:45 09/03/24 09:33 Amlodipine Besylate 2.5 Mg Tablet PO 2.5 mg QAM KAELA Administration Aspirin 81 mg 08/18/24 09:00 09/03/24 09:33 Aspirin 81 Mg Enteric Tablet PO 81 mg QAM KAELA Administration Atorvastatin Calcium 10 mg 08/17/24 21:00 09/02/24 20:18 Atorvastatin 10 Mg Tablet PO 10 mg HS KAELA Administration Benzonatate 100 mg 08/17/24 20:42 08/26/24 10:07 Benzonatate 100 Mg Capsule PO 100 mg TID PRN Administration Cough Cyanocobalamin 1,000 mcg 08/31/24 09:00 09/03/24 09:33 Cyanocobalamin 1,000 Mcg Tablet PO 1,000 mcg QAM KAELA Administration Dextrose 12.5 gm 08/17/24 17:18 Dextrose 50% 25 Gm/50 Ml Syringe IV PUSH PRN PRN Hypoglycemia Protocol Empagliflozin 10 mg 08/24/24 09:00 09/03/24 09:33 Empagliflozin 10 Mg Tablet BY MOUTH 10 mg DAILY KAELA Administration Enoxaparin Sodium 40 mg 08/23/24 09:00 09/03/24 09:32 Enoxaparin 40 Mg/0.4 Ml Syringe SUB-Q 40 mg DAILY KAELA Administration Escitalopram Oxalate 20 mg 08/18/24 09:00 09/03/24 09:33 Escitalopram Oxalate 10 Mg Tablet PO 20 mg DAILY KAELA Administration Fluticasone Propionate 2 spray 08/18/24 09:00 09/03/24 09:32 Fluticasone Propionate 0.05% Na Spr 16 Gm Btl (*Bkc) NASAL 2 spray DAILY KAELA Administration Furosemide 40 mg 08/31/24 16:40 09/02/24 13:22 Furosemide 40 Mg Tablet PO 40 mg BID@0800,1400 KAELA Administration Gabapentin 300 mg 08/17/24 21:00 09/02/24 20:18 Gabapentin 300 Mg Capsule PO 300 mg QHS KAELA Administration Glucagon 1 mg 08/17/24 17:18 Glucagon For Inj 1 Mg Vial IM PRN PRN Hypoglycemia Protocol Glucose 15 gm 08/17/24 17:18 Glucose Oral Gel 15 Gm Of Glucse In 37.5 Gm Tube PO PRN PRN Hypoglycemia Protocol Dextrose 1,000 mls @ 100 mls/hr 08/17/24 17:18 Dextrose 5% 1,000 Ml IVPB PRN PRN Hypoglycemia Protocol Insulin Aspart 2 - 4 units 08/17/24 21:00 09/02/24 21:24 Insulin Aspart (*Bkc) 100 Units/Ml SUB-Q 2 units HS KAELA Administration Protocol Insulin Aspart 2 - 5 units 08/24/24 17:00 09/03/24 09:50 Insulin Aspart (*Bkc) 100 Units/Ml SUB-Q 2 units TIDWM KAELA Administration Protocol Insulin Aspart 18 units 09/01/24 17:00 09/03/24 09:49 Insulin Aspart (*Bkc) 100 Units/Ml SUB-Q 18 units TIDWM KAELA Administration Insulin Glargine 45 units 08/26/24 21:00 09/02/24 21:24 Insulin Glargine (*Bkc) 100 Units/Ml SUB-Q 45 units HS KAELA Administration Levetiracetam 250 mg/ 750 mg 09/01/24 21:00 09/03/24 09:33 Levetiracetam 500 mg PO 750 mg Q12HR KAELA Administration Levothyroxine Sodium 50 mcg 08/18/24 06:30 09/03/24 05:57 Levothyroxine Sodium 50 Mcg Tablet PO 50 mcg DAILY@0630 KAELA Administration Metoprolol Succinate 25 mg 08/21/24 09:00 09/03/24 09:33 Metoprolol Succinate Ext Rel 25 Mg Tabcr PO 25 mg QAM KAELA Administration Ondansetron HCl 4 mg 08/17/24 17:17 Ondansetron Inj 4 Mg/2 Ml Vial IV PUSH Q6H PRN Nausea And Vomiting Pantoprazole Sodium 40 mg 08/18/24 09:00 09/03/24 09:33 Pantoprazole 40 Mg Tablet PO 40 mg QAM KAELA Administration Sodium Chloride 2 spray 08/17/24 20:42 08/27/24 09:18 Saline 0.65% Sha Soln 44 Ml Btl NASAL 2 spray QID PRN Administration nasal congestion/dryness Radiology Results: ITS Impressions Shoulder X-Ray 08/18/24 15:56 IMPRESSION: Osteopenia Head CT 08/20/24 09:56 IMPRESSION: 1. Stable moderate nonspecific cerebral white matter disease, which likely represents chronic small vessel ischemic disease. Pulmonary Perfusion Imaging 08/20/24 12:15 IMPRESSION: 1. Low probability for pulmonary embolism. Brain MRI 08/22/24 16:06 IMPRESSION: 1. Moderate nonspecific cerebral white matter disease and pontine disease, which likely represents chronic small vessel ischemic disease, stable from 05/26/2022. Chest X-Ray 08/22/24 18:38 IMPRESSION: Moderate interstitial edema. Subsegmental bibasilar atelectasis/consolidation. Possible small bilateral effusions. Hand X-Ray 08/23/24 15:26 IMPRESSION: Possible fracture in the distal radius. Clinical correlation and proper images are advised. Slight narrowing of the proximal and distal interphalangeal joints. Forearm X-Ray 08/24/24 11:01 IMPRESSION: 1. No fracture identified. 2. Loose bodies in the radiocarpal compartment. Modified Barium Swallow 08/24/24 14:17 IMPRESSION: Minimal pharyngeal dysphagia with trace shallow laryngeal penetration without aspiration. Please correlate with speech pathologist findings and specific feeding recommendations. Chest/Abdomen/Pelvis CT 08/27/24 09:37 IMPRESSION: 1. Mild atelectasis in the lungs. Lumbar Puncture Fluoroscopy 08/27/24 15:40 IMPRESSION: 1. Successful fluoro-guided lumbar puncture. Venous Doppler Study 08/29/24 23:29 IMPRESSION: 1. No deep venous thrombosis within the right lower extremity from the level of the mid femoral vein centrally to the right common femoral vein, as detailed above. Labs Labs: Laboratory Results - last 24 hr 08/27/24 09/02/24 09/02/24 15:20 16:55 21:21 WBC RBC Hgb Hct MCV MCH MCHC RDW Plt Count MPV Sodium Potassium Chloride Carbon Dioxide Anion Gap BUN Creatinine Estim Creat Clear Calc Estimated GFR Glucose POC Capillary Glucose 236 H 232 H Calcium CSF Source Csf CSF [place] RNA Not detected 09/03/24 09/03/24 05:14 08:26 WBC 7.3 RBC 4.26 Hgb 12.5 Hct 42.0 MCV 98.6 MCH 29.3 MCHC 29.8 L RDW 16.9 H Plt Count 338 MPV 9.8 Sodium 135 L Potassium 4.0 Chloride 99 Carbon Dioxide 29 Anion Gap 7 BUN 39 H Creatinine 2.60 H Estim Creat Clear Calc 25 Estimated GFR 18 L Glucose 183 H POC Capillary Glucose 212 H Calcium 11.6 H CSF Source CSF [place] RNA
[2024-09-03 12:21] LABS: Alveolar/Arterial O2 Gradient 82.6 mmHg; Base Excess ABG 1.7 mEq/l (+/-2.0); Fractional Inspired Oxygen 28 %; HCO3 ABG 26.9 mEq/l (22.0-26.0); Oxygen Content ABG 16.6 %vol (16.0-22.0); Oxygen Saturation ABG 92.4 % (95.0-100.0); Oxyhemoglobin 91.2 % THb (90.0-100.0); PCO2 ABG 44.8 mmHg (35.0-45.0); PO2 ABG 64.2 mmHg (80.0-100.0); PO2 FiO2 Ratio Arterial Blood 2.29 %; Total Hemoglobin 12.9 g/dL (12.0-18.0); pH ABG 7.397 (7.350-7.450)
[2024-09-03 12:23] LABS: Device NASAL CANNULA; Modified Allen's Test Pass; Site Drawn LEFT RADIAL
--- NOTE | 2024-09-03 14:01 | PM.IMPN ---
Progress Note: A&P Assessment and Plan (1) Confusion: Code(s): R41.0 - Disorientation, unspecified Status: Acute Assessment and Plan: Patient had increasing altered mental status since admission. Patient slow to respond, able follow simple commands, staring into space. EEG 08/27 showing abnormal EEG due to presence of diffuse background slowing suggestive of generalized encephalopathy Such as may be seen with bihemispheric lesions or metabolic encephalopathy. No focal or paroxysmal epileptiform abnormalities were seen. ABG within normal limits. Ammonia level negative. TSH normal. VitD deficiency noted related to hypercalcemia. HIV negative in Fe. B12 low end of normal at 303. B12 replaced. MRI shows moderate nonspecific cerebral white matter disease and pontine disease, which likely represents chronic small vessel ischemic disease, stable from 05/26/2022. Gabapentin, allopurinol and narcotic medications were held Was on Fioricet prn but may be taking this more regularly so consider withdrawal but seems less likely. Confusion probably multifactorial from dementia, withdrawal, hypercalcemia, hospital-acquired hypoactive delirium and/or psychiatric issues. Consider occult seizures. Consider related to uremia, hypercalcemia and/or being off Fiorcet LP performed 08/27/2024. Negative for bacterial. Viral etiology still possible so acyclovir started. Speech therapy note reviewed. Diet adjusted CSF HSV PCR was negative so Acyclovir stopped. VDRL and EBV DNA also negative. Neurology consulted and recommended pt to follow-up outpatient in 3 weeks for Alzheimer's workup. Keppra started 09/01. Follow for signs of improvement. (2) Hyperparathyroidism: Code(s): E21.3 - Hyperparathyroidism, unspecified Status: Acute Assessment and Plan: Hypercalcemia noted. Started on IV fluids as BRADY also worsening. iPTH elevated which explains the hypercalcemia. [id number] probably related to the hypercalcemia. TSH normal. iPTH 136 (and has been elevated since 2021) Calcium level better with IV fluids. Calcium stable in the 11 range Bone scan ordered. Follow off IV fluids. (3) Acute respiratory failure with hypoxia: Code(s): J96.01 - Acute respiratory failure with hypoxia Status: Acute Assessment and Plan: Patient is not on any baseline oxygen during the day however is requiring 2-4 L nasal cannula now due to hypoxia in the ER with oxygen saturation of 87% on room air. CXR showing airspace opacities in the lower lung zones. BNP 480. Respiratory panel was negative for influenza A and B, RSV, COVID ABG showed normal pH of 7.366, pCO2 46.2, PO2 58.7, bicarb 25.9 on 2L WBC count was normal and was afebrile. Patient was started on abx while in the ED. D-dimer mildly elevated but V/Q scan low probability and LE venous doppler was negative (limited study and could only get right LE) EKG showing sinus rhythm with a rate of 66, QTC 423 CT chest 08/27 showing mild atelectasis ABG today showing 7.39/45/64 on 2L. Wean O2 as tolerated (4) CHF (congestive heart failure), NYHA class I: Qualifiers: Congestive heart failure type: unspecified Qualified Code(s): I50.9 - Heart failure, unspecified Code(s): I50.9 - Heart failure, unspecified Status: Acute Assessment and Plan: Echo from 12/2021 showed normal LV systolic function (EF of 65-70%), grade 1 diastolic dysfunction. CXR reporting airspace opacities in the lower lung zones likely atelectasis. BNP 483 A one time dose of 40 mg of IV Lasix ordered. Further diuresis held considering renal function Repeat Echo EF 65-70% Lasix was on hold. Renal function stablized. We resumed home Lasix at half dose. Cr up to 2.6 today so will hold Lasix again Follow. (5) Type 2 diabetes mellitus: Qualifiers: Diabetes mellitus [facility] insulin use: with [facility] use Diabetes mellitus complication status: with kidney complications Diabetes mellitus complication detail: with chronic kidney disease Chronic kidney disease stage: stage 3 (moderate) Chronic kidney disease stage 3 subtype: stage 3b (GFR 30-44) Qualified Code(s): E11.22 - Type 2 diabetes mellitus with diabetic chronic kidney disease; N18.32 - Chronic kidney disease, stage 3b; Z79.4 - FDC (current) use of insulin Code(s): E11.9 - Type 2 diabetes mellitus without complications Status: Chronic Assessment and Plan: A1c 9.5%. The patient's blood glucose was reviewed on 09/03 Glucose poorly controlled. Continue AccuCheks covering with sliding scale. Hypoglycemia protocol available as needed. Diabetic diet. Continue to monitor. Advance Lantus (6) Chronic kidney disease, stage IV (severe): Code(s): N18.4 - Chronic kidney disease, stage 4 (severe) Status: Chronic Assessment and Plan: Creatinine 2.9, EGFR 16 on admission. Baseline creatinine 2.1-2.6 Cr up to 3.3 so diuretics stopped. Was on IV fluids and Cr trended down to 2.1 Resumed oral lasix at half home dose and Cr up to 2.6 today. Hold Lasix Follow (7) Hypertension: Code(s): I10 - Essential (primary) hypertension Status: Chronic Assessment and Plan: Patient's blood pressure was reviewed on 09/03 Blood pressure better controlled overall. Will continue to follow (8) Obstructive sleep apnea on CPAP: Code(s): G47.33 - Obstructive sleep apnea (adult) (pediatric); Z99.89 - Dependence on other enabling machines and devices Status: Chronic Assessment and Plan: Patient does not wear CPAP but only wears 2L of oxygen at night only ABG as above Continue O2 at night (9) UTI (urinary tract infection): Qualifiers: Urinary tract infection type: site unspecified Hematuria presence: without hematuria Qualified Code(s): N39.0 - Urinary tract infection, site not specified Code(s): N39.0 - Urinary tract infection, site not specified Status: Acute Assessment and Plan: UA is consistent with UTI. UCx collected. Rocephin started. BCx negative. UCx grew Citrobacter that was essentially odonnell-sensitive. Rocephin x 3 days then changed to Cefepime then Bactrim to complete a course. Off abx currently (10) Hypothyroidism: Qualifiers: Hypothyroidism type: acquired Qualified Code(s): E03.9 - Hypothyroidism, unspecified Code(s): E03.9 - Hypothyroidism, unspecified Status: Chronic Assessment and Plan: TSH normal. Continue Synthroid (11) Elevated d-dimer: Code(s): R79.89 - Other specified abnormal findings of blood chemistry Status: Acute Assessment and Plan: As above. (12) Radial styloid fracture: Qualifiers: Encounter type: initial encounter Fracture type: closed Fracture alignment: nondisplaced Laterality: right Qualified Code(s): S52.514A - Nondisplaced fracture of right radial styloid process, initial encounter for closed fracture Code(s): S52.513A - Displaced fracture of unspecified radial styloid process, initial encounter for closed fracture Status: Acute Assessment and Plan: Right subacute stylod fx. Orthopedics consulted Brace for support Okay for range of motion Platform walker weight-bearing through elbow Brace for 4-6 weeks and follow-up outpatient clinic Plan DVT prophylaxis - Lovenox Code status - full Subjective Date/time seen: 09/03/24 14:01 Interval history: 74yo female with CHF, CKD, chronic resp failure on home O2, DM, ABDIAZIZ and HTN here for weakness and low BP. Patient's mental status continues to wax and wane. She is eatin g50-75% of her meals. Review of Systems Review of Systems: ROS unobtainable: Yes unobtainable due to mental status Exam Narrative: AF 97.2 132/66 82 18 95% 2L Gen - NARD Chest - R>L bibasilar crackles. nml RR CV - RRR S1/S2 Abd - Soft, obese Ext - trace pedal edema. Right wrist in soft cast. Neuro - Awake, alert. Mostly aphasic. She can eat but unable to feed herself. Psych - odd affect. Skin - Warm and dry Objective Data Vital Signs Vital Signs: Vital Signs - 24 hr 09/02/24 14:25 09/02/24 14:36 09/02/24 20:38 Temperature Pulse Rate 92 88 93 Respiratory Rate 20 20 18 Blood Pressure Pulse Oximetry Oxygen Delivery Oxygen Flow Rate 09/02/24 20:39 09/02/24 20:00 09/02/24 22:06 Temperature 97.1 F L Pulse Rate 99 Respiratory Rate 16 Blood Pressure 129/57 L Pulse Oximetry 93 93 94 Oxygen Delivery Nasal Cannula Nasal Cannula Oxygen Flow Rate 2 2 09/03/24 05:56 09/03/24 07:16 09/03/24 07:16 Temperature 97.2 F L Pulse Rate 90 87 Respiratory Rate 20 18 Blood Pressure 132/66 Pulse Oximetry 98 95 Oxygen Delivery Nasal Cannula Oxygen Flow Rate 2 09/03/24 07:21 09/03/24 09:33 09/03/24 13:36 Temperature Pulse Rate 88 92 89 Respiratory Rate 18 18 Blood Pressure Pulse Oximetry Oxygen Delivery Oxygen Flow Rate 09/03/24 13:42 Temperature Pulse Rate 82 Respiratory Rate 18 Blood Pressure Pulse Oximetry Oxygen Delivery Oxygen Flow Rate Intake/Output Intake/Output: Intake & Output 08/31/24 09/01/24 09/02/24 09/03/24 23:59 23:59 23:59 23:59 Intake Total 1276 1450 1550 766 Output Total 1710 1450 250 300 Balance -434 0 1300 466 Meds/Results Medications: Active Medications Generic Name Dose Route Start Last Admin Trade Name Freq PRN Reason Stop Dose Admin Acetaminophen 650 mg 08/17/24 16:39 09/01/24 17:47 Acetaminophen 325 Mg Tablet PO 650 mg Q4H PRN Administration Mild Pain (1-3) or Fever Albuterol/Ipratropium 3 ml 08/29/24 14:00 09/03/24 13:35 Ipratropium 0.5 Mg/Albuterol Sulfate 2.5 Mg Ampul.Neb 3 Ml INHALATION 3 ml [id number] KAELA Administration Allopurinol 300 mg 08/18/24 09:00 09/03/24 09:33 Allopurinol 300 Mg Tablet PO 300 mg DAILY KAELA Administration Amlodipine Besylate 2.5 mg 09/02/24 10:45 09/03/24 09:33 Amlodipine Besylate 2.5 Mg Tablet PO 2.5 mg QAM KAELA Administration Aspirin 81 mg 08/18/24 09:00 09/03/24 09:33 Aspirin 81 Mg Enteric Tablet PO 81 mg QAM AKELA Administration Atorvastatin Calcium 10 mg 08/17/24 21:00 09/02/24 20:18 Atorvastatin 10 Mg Tablet PO 10 mg HS KAELA Administration Benzonatate 100 mg 08/17/24 20:42 08/26/24 10:07 Benzonatate 100 Mg Capsule PO 100 mg TID PRN Administration Cough Calcitonin [place] 500 units 09/03/24 13:00 Calcitonin [place] Inj 400 Units/2 Ml Vial SUB-Q 09/05/24 21:01 Q12HR KAELA Cyanocobalamin 1,000 mcg 08/31/24 09:00 09/03/24 09:33 Cyanocobalamin 1,000 Mcg Tablet PO 1,000 mcg QAM KAELA Administration Dextrose 12.5 gm 08/17/24 17:18 Dextrose 50% 25 Gm/50 Ml Syringe IV PUSH PRN PRN Hypoglycemia Protocol Empagliflozin 10 mg 08/24/24 09:00 09/03/24 09:33 Empagliflozin 10 Mg Tablet BY MOUTH 10 mg DAILY KAELA Administration Enoxaparin Sodium 40 mg 08/23/24 09:00 09/03/24 09:32 Enoxaparin 40 Mg/0.4 Ml Syringe SUB-Q 40 mg DAILY KAELA Administration Escitalopram Oxalate 20 mg 08/18/24 09:00 09/03/24 09:33 Escitalopram Oxalate 10 Mg Tablet PO 20 mg DAILY KAELA Administration Fluticasone Propionate 2 spray 08/18/24 09:00 09/03/24 09:32 Fluticasone Propionate 0.05% Na Spr 16 Gm Btl (*Bkc) NASAL 2 spray DAILY KAELA Administration Furosemide 40 mg 08/31/24 16:40 09/02/24 13:22 Furosemide 40 Mg Tablet PO 40 mg BID@0800,1400 KAELA Administration Gabapentin 300 mg 08/17/24 21:00 09/02/24 20:18 Gabapentin 300 Mg Capsule PO 300 mg QHS KAELA Administration Glucagon 1 mg 08/17/24 17:18 Glucagon For Inj 1 Mg Vial IM PRN PRN Hypoglycemia Protocol Glucose 15 gm 08/17/24 17:18 Glucose Oral Gel 15 Gm Of Glucse In 37.5 Gm Tube PO PRN PRN Hypoglycemia Protocol Dextrose 1,000 mls @ 100 mls/hr 08/17/24 17:18 Dextrose 5% 1,000 Ml IVPB PRN PRN Hypoglycemia Protocol Insulin Aspart 2 - 4 units 08/17/24 21:00 09/02/24 21:24 Insulin Aspart (*Bkc) 100 Units/Ml SUB-Q 2 units HS KAELA Administration Protocol Insulin Aspart 2 - 5 units 08/24/24 17:00 09/03/24 12:29 Insulin Aspart (*Bkc) 100 Units/Ml SUB-Q 3 units TIDWM KAELA Administration Protocol Insulin Aspart 18 units 09/01/24 17:00 09/03/24 12:28 Insulin Aspart (*Bkc) 100 Units/Ml SUB-Q 18 units TIDWM KAELA Administration Insulin Glargine 45 units 08/26/24 21:00 09/02/24 21:24 Insulin Glargine (*Bkc) 100 Units/Ml SUB-Q 45 units HS KAELA Administration Levetiracetam 250 mg/ 750 mg 09/01/24 21:00 09/03/24 09:33 Levetiracetam 500 mg PO 750 mg Q12HR KAELA Administration Levothyroxine Sodium 50 mcg 08/18/24 06:30 09/03/24 05:57 Levothyroxine Sodium 50 Mcg Tablet PO 50 mcg DAILY@0630 KAELA Administration Metoprolol Succinate 25 mg 08/21/24 09:00 09/03/24 09:33 Metoprolol Succinate Ext Rel 25 Mg Tabcr PO 25 mg QAM KAELA Administration Ondansetron HCl 4 mg 08/17/24 17:17 Ondansetron Inj 4 Mg/2 Ml Vial IV PUSH Q6H PRN Nausea And Vomiting Pantoprazole Sodium 40 mg 08/18/24 09:00 09/03/24 09:33 Pantoprazole 40 Mg Tablet PO 40 mg QAM KAELA Administration Sodium Chloride 2 spray 08/17/24 20:42 08/27/24 09:18 Saline 0.65% Sha Soln 44 Ml Btl NASAL 2 spray QID PRN Administration nasal congestion/dryness Radiology Results: ITS Impressions Shoulder X-Ray 08/18/24 15:56 IMPRESSION: Osteopenia Head CT 08/20/24 09:56 IMPRESSION: 1. Stable moderate nonspecific cerebral white matter disease, which likely represents chronic small vessel ischemic disease. Pulmonary Perfusion Imaging 08/20/24 12:15 IMPRESSION: 1. Low probability for pulmonary embolism. Brain MRI 08/22/24 16:06 IMPRESSION: 1. Moderate nonspecific cerebral white matter disease and pontine disease, which likely represents chronic small vessel ischemic disease, stable from 05/26/2022. Chest X-Ray 08/22/24 18:38 IMPRESSION: Moderate interstitial edema. Subsegmental bibasilar atelectasis/consolidation. Possible small bilateral effusions. Hand X-Ray 08/23/24 15:26 IMPRESSION: Possible fracture in the distal radius. Clinical correlation and proper images are advised. Slight narrowing of the proximal and distal interphalangeal joints. Forearm X-Ray 08/24/24 11:01 IMPRESSION: 1. No fracture identified. 2. Loose bodies in the radiocarpal compartment. Modified Barium Swallow 08/24/24 14:17 IMPRESSION: Minimal pharyngeal dysphagia with trace shallow laryngeal penetration without aspiration. Please correlate with speech pathologist findings and specific feeding recommendations. Chest/Abdomen/Pelvis CT 08/27/24 09:37 IMPRESSION: 1. Mild atelectasis in the lungs. Lumbar Puncture Fluoroscopy 08/27/24 15:40 IMPRESSION: 1. Successful fluoro-guided lumbar puncture. Venous Doppler Study 08/29/24 23:29 IMPRESSION: 1. No deep venous thrombosis within the right lower extremity from the level of the mid femoral vein centrally to the right common femoral vein, as detailed above. Labs Labs: Laboratory Results - last 24 hr 08/27/24 09/02/24 09/02/24 15:20 16:55 21:21 WBC RBC Hgb Hct MCV MCH MCHC RDW Plt Count MPV Puncture Site ABG pH ABG pCO2 ABG pO2 ABG PO2/FiO2 Ratio ABG HCO3 ABG O2 Saturation ABG O2 Content ABG Base Excess A-a Gradient Oxyhemoglobin Total Hemoglobin O2 Delivery Device O2 Liters/Min FiO2 Sodium Potassium Chloride Carbon Dioxide Anion Gap BUN Creatinine Estim Creat Clear Calc Estimated GFR Glucose POC Capillary Glucose 236 H 232 H Calcium CSF Source Csf CSF [place] RNA Not detected 09/03/24 09/03/24 09/03/24 05:14 08:26 11:56 WBC 7.3 RBC 4.26 Hgb 12.5 Hct 42.0 MCV 98.6 MCH 29.3 MCHC 29.8 L RDW 16.9 H Plt Count 338 MPV 9.8 Puncture Site ABG pH ABG pCO2 ABG pO2 ABG PO2/FiO2 Ratio ABG HCO3 ABG O2 Saturation ABG O2 Content ABG Base Excess A-a Gradient Oxyhemoglobin Total Hemoglobin O2 Delivery Device O2 Liters/Min FiO2 Sodium 135 L Potassium 4.0 Chloride 99 Carbon Dioxide 29 Anion Gap 7 BUN 39 H Creatinine 2.60 H Estim Creat Clear Calc 25 Estimated GFR 18 L Glucose 183 H POC Capillary Glucose 212 H 269 H Calcium 11.6 H CSF Source CSF [place] RNA 09/03/24 12:12 WBC RBC Hgb Hct MCV MCH MCHC RDW Plt Count MPV Puncture Site Left radial ABG pH 7.397 ABG pCO2 44.8 ABG pO2 64.2 L ABG PO2/FiO2 Ratio 2.29 ABG HCO3 26.9 H ABG O2 Saturation 92.4 L ABG O2 Content 16.6 ABG Base Excess 1.7 A-a Gradient 82.6 Oxyhemoglobin 91.2 Total Hemoglobin 12.9 O2 Delivery Device Nasal cannula O2 Liters/Min 2.0 FiO2 28 Sodium Potassium Chloride Carbon Dioxide Anion Gap BUN Creatinine Estim Creat Clear Calc Estimated GFR Glucose POC Capillary Glucose Calcium CSF Source CSF [place] RNA
[2024-09-03 17:39] LABS: Glucose Point of Care 217 mg/dl (65-105)
[2024-09-03] MEDS: CALCITONIN SALMON INJ 400 UNITS/2 ML VIAL 500 UNITS SUB-Q (17:39)
[2024-09-03] MEDS: INSULIN GLARGINE (*BKC) 100 UNITS/ML 50 UNITS SUB-Q (20:33)
[2024-09-03] MEDS: ATORVASTATIN 10 MG TABLET PO (20:33)
[2024-09-03] MEDS: GABAPENTIN 300 MG CAPSULE PO (20:33)
[2024-09-04] VITALS (11 sets, daily range): BP systolic 112–143; BP diastolic 50–66; PULSE 91–105; RESP 16–20; TEMP 36.1–36.6; O2SAT 91–95
[2024-09-04 05:53] LABS: Glucose Point of Care 200 mg/dl (65-105)
[2024-09-04] MEDS: CALCITONIN SALMON INJ 400 UNITS/2 ML VIAL 500 UNITS SUB-Q (05:58)
[2024-09-04] MEDS: LEVOTHYROXINE SODIUM 50 MCG TABLET PO (05:58)
[2024-09-04 06:00] LABS: Albumin Level 3.6 g/dL (3.5-5.1); Anion Gap 8 mmol/L (4-12); Blood Urea Nitrogen 43 mg/dL (7-17); Calcium 10.8 mg/dL (8.4-10.2); Carbon Dioxide 29 mmol/L (22-30); Chloride 100 mmol/L (98-107); Estimated CRCL calculation 27 ml/min; Estimated Glomerular Filt Rate 20; Glucose 222 mg/dL (65-110); Phosphorus 4.1 mg/dL (2.5-4.5); Potassium 4.4 mmol/L (3.4-5.0); Sodium 137 mmol/L (137-145)
[2024-09-04] MEDS: IPRATROPIUM 0.5 MG/ALBUTEROL SULFATE 2.5 MG AMPUL.NEB 3 ML INHALATION ×3 (07:13→21:00)
[2024-09-04 08:03] LABS: Glucose Point of Care 227 mg/dl (65-105)
[2024-09-04] MEDS: INSULIN ASPART (*BKC) 100 UNITS/ML 18 UNITS SUB-Q ×3 (08:41→16:42)
[2024-09-04] MEDS: INSULIN ASPART (*BKC) 100 UNITS/ML SUB-Q ×2 (08:42→12:52)
[2024-09-04] MEDS: levETIRAcetam Tablet 250 MG, levETIRAcetam Tablet 500 MG 750 MG PO ×2 (08:43→22:07)
[2024-09-04] MEDS: FLUTICASONE PROPIONATE 0.05% NA SPR 16 GM BTL (*BKC) 2 SPRAY NASAL (08:43)
[2024-09-04] MEDS: allopurinoL 300 MG TABLET PO (08:43)
[2024-09-04] MEDS: ASPIRIN 81 MG ENTERIC TABLET PO (08:43)
[2024-09-04] MEDS: METOPROLOL SUCCINATE EXT REL 25 MG TABCR PO (08:44)
[2024-09-04] MEDS: CYANOCOBALAMIN 1,000 MCG TABLET 1000 MCG PO (08:44)
[2024-09-04] MEDS: ENOXAPARIN 40 MG/0.4 ML SYRINGE SUB-Q (08:44)
[2024-09-04] MEDS: ESCITALOPRAM OXALATE 10 MG TABLET 20 MG PO (08:44)
[2024-09-04] MEDS: amLODIPine BESYLATE 2.5 MG TABLET PO (08:44)
[2024-09-04] MEDS: PANTOPRAZOLE 40 MG TABLET PO (08:44)
[2024-09-04] MEDS: EMPAGLIFLOZIN 10 MG TABLET BY MOUTH (08:44)
[2024-09-04 11:56] LABS: Glucose Point of Care 214 mg/dl (65-105)
--- NOTE | 2024-09-04 12:23 | P.PNNP_ITS ---
Progress Note: A&P Assessment and Plan (1) Chronic kidney disease, stage 4 (severe): Code(s): N18.4 - Chronic kidney disease, stage 4 (severe) Status: Chronic Assessment and Plan: * baseline creatinine normally runs ~ 2.1 - 2.6mg/dl but has been as high as 2.9mg/dl * presumably secondary to hypertension, diabetes, vascular disease, and age- related change * today the creatinine has fallen from 2.6-2.4. * She is off diuretics. * The patient has no swelling. Will check a chest x-ray. She does not look fluid overloaded. * She is not eating much with her mental status and so she may not need much in the way of diuretics going forward. Possibly p.r.n. diuretics might play a role after discharge. (2) Confusion: Code(s): R41.0 - Disorientation, unspecified Status: Acute Assessment and Plan: * as noted on admission * extensive work-up and evaluation noted to date * sedative medications on hold * Calcium level is a little better.. He received pamidronate on Tuesday and calcitonin starting yesterday. * pCO2 has been high in the past. Yesterday's blood gas looked better though. (3) Hypercalcemia: Code(s): E83.52 - Hypercalcemia Status: Acute Assessment and Plan: * known history * presumably due to known history of hyperparathyroidism * PTH is 130. FeCa high. c/w primary hpth (neg PT scan in 2018) hypercalcemia has been going on for a really long time. (There is a remote possibility that this could be secondary hyperparathyroidism cause by the kidney disease and then the high calcium is because of some calcium source such as bony Mets for Paget's disease or something, however after this long a period of time I think that metastatic disease would have been diagnosed.) For completeness will get a bone scan * was should follow-up with endocrinology. * Today's calcium is a little better * she has the midst of her 6 doses of calcitonin. (4) UTI (urinary tract infection): Qualifiers: Urinary tract infection type: site unspecified Hematuria presence: wi thout hematuria Qualified Code(s): N39.0 - Urinary tract infection, site not specified Code(s): N39.0 - Urinary tract infection, site not specified Status: Acute Assessment and Plan: * completed course of antibiotics (5) Hypertension: Code(s): I10 - Essential (primary) hypertension Status: Chronic Assessment and Plan: * Systolic in the 110s to 130s. 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 Diabetes mellitus complication status: with kidney complications Diabetes mellitus complication detail: with chronic kidney disease Chronic kidney disease stage: stage 3 (moderate) Chronic kidney disease stage 3 subtype: stage 3b (GFR 30-44) Qualified Code(s): E11.22 - Type 2 diabetes mellitus with diabetic chronic kidney disease; N18.32 - Chronic kidney disease, stage 3b; Z79.4 - residential (current) use of insulin Code(s): E11.9 - Type 2 diabetes mellitus without complications Status: Chronic Assessment and Plan: * follow accu-cheks * glycemic control per hospitalists Subjective Date/time seen: 09/04/24 12:23 Interval history: patient is more awake today. She tends to wax and wane. Exam Narrative: General: elderly female lying in bed not interactive in NAD Heart: normal S1 and S2; no rub or gallop Lungs: decreased breath sounds at bases Abdomen: soft, nontender, nondistended, positive bowel sounds Extremities: 1+ edema and no cyanosis Skin: No acute rash or subQ nodules Objective Data Vital Signs Vital Signs: Vital Signs - 24 hr 09/03/24 13:36 09/03/24 13:42 09/03/24 14:00 Temperature 97.6 F Pulse Rate 89 82 84 Respiratory Rate 18 18 18 Blood Pressure 134/60 Pulse Oximetry 97 Oxygen Delivery Oxygen Flow Rate Fraction of Inspired Oxygen 09/03/24 20:54 09/03/24 20:54 09/03/24 20:59 Temperature Pulse Rate 97 100 Respiratory Rate 18 18 Blood Pressure Pulse Oximetry 93 Oxygen Delivery Nasal Cannula Oxygen Flow Rate 2 Fraction of Inspired Oxygen 09/03/24 20:00 09/03/24 22:00 09/04/24 07:14 Temperature 97.5 F L Pulse Rate 96 Respiratory Rate 16 Blood Pressure 131/68 Pulse Oximetry 95 93 95 Oxygen Delivery Nasal Cannula Nasal Cannula Oxygen Flow Rate 3 2 Fraction of Inspired Oxygen 28 09/04/24 07:14 09/04/24 07:21 09/04/24 06:00 Temperature 97.2 F L Pulse Rate 105 H 103 H 105 H Respiratory Rate 18 18 16 Blood Pressure 117/59 L Pulse Oximetry 95 Oxygen Delivery Oxygen Flow Rate Fraction of Inspired Oxygen 09/04/24 08:44 Temperature Pulse Rate 96 Respiratory Rate Blood Pressure Pulse Oximetry Oxygen Delivery Oxygen Flow Rate Fraction of Inspired Oxygen Intake/Output Intake/Output: Intake & Output 09/01/24 09/02/24 09/03/24 09/04/24 23:59 23:59 23:59 23:59 Intake Total 1450 1550 1323 720 Output Total 1450 250 300 Balance 0 1300 1023 720 Meds/Results Medications: Active Medications Generic Name Dose Route Start Last Admin Trade Name Freq PRN Reason Stop Dose Admin Acetaminophen 650 mg 08/17/24 16:39 09/01/24 17:47 Acetaminophen 325 Mg Tablet PO 650 mg Q4H PRN Administration Mild Pain (1-3) or Fever Albuterol/Ipratropium 3 ml 08/29/24 14:00 09/04/24 07:13 Ipratropium 0.5 Mg/Albuterol Sulfate 2.5 Mg Ampul.Neb 3 Ml INHALATION 3 ml [id number] KAELA Administration Allopurinol 300 mg 08/18/24 09:00 09/04/24 08:43 Allopurinol 300 Mg Tablet PO 300 mg DAILY KAELA Administration Amlodipine Besylate 2.5 mg 09/02/24 10:45 09/04/24 08:44 Amlodipine Besylate 2.5 Mg Tablet PO 2.5 mg QAM KAELA Administration Aspirin 81 mg 08/18/24 09:00 09/04/24 08:43 Aspirin 81 Mg Enteric Tablet PO 81 mg QAM KAELA Administration Atorvastatin Calcium 10 mg 08/17/24 21:00 09/03/24 20:33 Atorvastatin 10 Mg Tablet PO 10 mg HS KAELA Administration Benzonatate 100 mg 08/17/24 20:42 08/26/24 10:07 Benzonatate 100 Mg Capsule PO 100 mg TID PRN Administration Cough Calcitonin [place] 167 units 09/04/24 18:00 Calcitonin [place] Inj 400 Units/2 Ml Vial SUB-Q 09/06/24 06:01 Q12H KAELA Calcitonin [place] 167 units 09/04/24 18:01 Calcitonin [place] Inj 400 Units/2 Ml Vial SUB-Q 09/06/24 06:02 Q12H KAELA Calcitonin [place] 167 units 09/04/24 18:02 Calcitonin [place] Inj 400 Units/2 Ml Vial SUB-Q 09/06/24 06:03 Q12H KAELA Cyanocobalamin 1,000 mcg 08/31/24 09:00 09/04/24 08:44 Cyanocobalamin 1,000 Mcg Tablet PO 1,000 mcg QAM KAELA Administration Dextrose 12.5 gm 08/17/24 17:18 Dextrose 50% 25 Gm/50 Ml Syringe IV PUSH PRN PRN Hypoglycemia Protocol Empagliflozin 10 mg 08/24/24 09:00 09/04/24 08:44 Empagliflozin 10 Mg Tablet BY MOUTH 10 mg DAILY KAELA Administration Enoxaparin Sodium 40 mg 08/23/24 09:00 09/04/24 08:44 Enoxaparin 40 Mg/0.4 Ml Syringe SUB-Q 40 mg DAILY KAELA Administration Escitalopram Oxalate 20 mg 08/18/24 09:00 09/04/24 08:44 Escitalopram Oxalate 10 Mg Tablet PO 20 mg DAILY KAELA Administration Fluticasone Propionate 2 spray 08/18/24 09:00 09/04/24 08:43 Fluticasone Propionate 0.05% Na Spr 16 Gm Btl (*Bkc) NASAL 2 spray DAILY KAELA Administration Furosemide 40 mg 08/31/24 16:40 09/02/24 13:22 Furosemide 40 Mg Tablet PO 40 mg BID@0800,1400 KAELA Administration Gabapentin 300 mg 08/17/24 21:00 09/03/24 20:33 Gabapentin 300 Mg Capsule PO 300 mg QHS KAELA Administration Glucagon 1 mg 08/17/24 17:18 Glucagon For Inj 1 Mg Vial IM PRN PRN Hypoglycemia Protocol Glucose 15 gm 08/17/24 17:18 Glucose Oral Gel 15 Gm Of Glucse In 37.5 Gm Tube PO PRN PRN Hypoglycemia Protocol Dextrose 1,000 mls @ 100 mls/hr 08/17/24 17:18 Dextrose 5% 1,000 Ml IVPB PRN PRN Hypoglycemia Protocol Insulin Aspart 2 - 4 units 08/17/24 21:00 09/03/24 20:22 Insulin Aspart (*Bkc) 100 Units/Ml SUB-Q Not Given HS KAELA Protocol Insulin Aspart 2 - 5 units 08/24/24 17:00 09/04/24 08:42 Insulin Aspart (*Bkc) 100 Units/Ml SUB-Q 2 units TIDWM KAELA Administration Protocol Insulin Aspart 18 units 09/01/24 17:00 09/04/24 08:41 Insulin Aspart (*Bkc) 100 Units/Ml SUB-Q 18 units TIDWM KAELA Administration Insulin Glargine 50 units 09/03/24 21:00 09/03/24 20:33 Insulin Glargine (*Bkc) 100 Units/Ml SUB-Q 50 units HS KAELA Administration Levetiracetam 250 mg/ 750 mg 09/01/24 21:00 09/04/24 08:43 Levetiracetam 500 mg PO 750 mg Q12HR KAELA Administration Levothyroxine Sodium 50 mcg 08/18/24 06:30 09/04/24 05:58 Levothyroxine Sodium 50 Mcg Tablet PO 50 mcg DAILY@0630 KAELA Administration Metoprolol Succinate 25 mg 08/21/24 09:00 09/04/24 08:44 Metoprolol Succinate Ext Rel 25 Mg Tabcr PO 25 mg QAM KAELA Administration Ondansetron HCl 4 mg 08/17/24 17:17 Ondansetron Inj 4 Mg/2 Ml Vial IV PUSH Q6H PRN Nausea And Vomiting Pantoprazole Sodium 40 mg 08/18/24 09:00 09/04/24 08:44 Pantoprazole 40 Mg Tablet PO 40 mg QAM [facility] Administration Sodium Chloride 2 spray 08/17/24 20:42 08/27/24 09:18 Saline 0.65% Sha Soln 44 Ml Btl NASAL 2 spray QID PRN Administration nasal congestion/dryness Radiology Results: ITS Impressions Shoulder X-Ray 08/18/24 15:56 IMPRESSION: Osteopenia Head CT 08/20/24 09:56 IMPRESSION: 1. Stable moderate nonspecific cerebral white matter disease, which likely represents chronic small vessel ischemic disease. Pulmonary Perfusion Imaging 08/20/24 12:15 IMPRESSION: 1. Low probability for pulmonary embolism. Brain MRI 08/22/24 16:06 IMPRESSION: 1. Moderate nonspecific cerebral white matter disease and pontine disease, which likely represents chronic small vessel ischemic disease, stable from 05/26/2022. Chest X-Ray 08/22/24 18:38 IMPRESSION: Moderate interstitial edema. Subsegmental bibasilar atelectasis/consolidation. Possible small bilateral effusions. Hand X-Ray 08/23/24 15:26 IMPRESSION: Possible fracture in the distal radius. Clinical correlation and proper images are advised. Slight narrowing of the proximal and distal interphalangeal joints. Forearm X-Ray 08/24/24 11:01 IMPRESSION: 1. No fracture identified. 2. Loose bodies in the radiocarpal compartment. Modified Barium Swallow 08/24/24 14:17 IMPRESSION: Minimal pharyngeal dysphagia with trace shallow laryngeal penetration without aspiration. Please correlate with speech pathologist findings and specific feeding recommendations. Chest/Abdomen/Pelvis CT 08/27/24 09:37 IMPRESSION: 1. Mild atelectasis in the lungs. Lumbar Puncture Fluoroscopy 08/27/24 15:40 IMPRESSION: 1. Successful fluoro-guided lumbar puncture. Venous Doppler Study 08/29/24 23:29 IMPRESSION: 1. No deep venous thrombosis within the right lower extremity from the level of the mid femoral vein centrally to the right common femoral vein, as detailed above. Bone Scan Nuclear Medicine 09/03/24 15:42 IMPRESSION: 1. No evidence of malignancy. Labs Labs: Laboratory Results - last 24 hr 09/03/24 09/03/24 09/03/24 12:12 17:16 19:54 Puncture Site Left radial ABG pH 7.397 ABG pCO2 44.8 ABG pO2 64.2 L ABG PO2/FiO2 Ratio 2.29 ABG HCO3 26.9 H ABG O2 Saturation 92.4 L ABG O2 Content 16.6 ABG Base Excess 1.7 A-a Gradient 82.6 Oxyhemoglobin 91.2 Total Hemoglobin 12.9 O2 Delivery Device Nasal cannula O2 Liters/Min 2.0 FiO2 28 Sodium Potassium Chloride Carbon Dioxide Anion Gap BUN Creatinine Estim Creat Clear Calc Estimated GFR Glucose POC Capillary Glucose 217 H 200 H Calcium Phosphorus Albumin 09/04/24 09/04/24 09/04/24 05:25 07:52 11:52 Puncture Site ABG pH ABG pCO2 ABG pO2 ABG PO2/FiO2 Ratio ABG HCO3 ABG O2 Saturation ABG O2 Content ABG Base Excess A-a Gradient Oxyhemoglobin Total Hemoglobin O2 Delivery Device O2 Liters/Min FiO2 Sodium 137 Potassium 4.4 Chloride 100 Carbon Dioxide 29 Anion Gap 8 BUN 43 H Creatinine 2.40 H Estim Creat Clear Calc 27 Estimated GFR 20 L Glucose 222 H POC Capillary Glucose 227 H 214 H Calcium 10.8 H Phosphorus 4.1 Albumin 3.6
--- NOTE | 2024-09-04 13:23 | P.PNIM_ITS ---
Progress Note: A&P Assessment and Plan (1) Confusion: Code(s): R41.0 - Disorientation, unspecified Status: Acute Assessment and Plan: Patient had increasing altered mental status since admission. Patient slow to respond, able follow simple commands, staring into space. EEG 08/27 showing abnormal EEG due to presence of diffuse background slowing suggestive of generalized encephalopathy Such as may be seen with bihemispheric lesions or metabolic encephalopathy. No focal or paroxysmal epileptiform abnormalities were seen. ABG within normal limits. Ammonia level negative. TSH normal. VitD deficiency noted related to hypercalcemia. HIV negative in Nov. B12 low end of normal at 303. B12 replaced. MRI shows moderate nonspecific cerebral white matter disease and pontine disease, which likely represents chronic small vessel ischemic disease, stable from 05/26/2022. Gabapentin, allopurinol and narcotic medications were held Was on Fioricet prn but may be taking this more regularly so consider withdrawal but seems less likely. Confusion probably multifactorial from dementia, withdrawal, hypercalcemia, hospital-acquired hypoactive delirium and/or psychiatric issues. Consider occult seizures. Consider related to uremia, hypercalcemia and/or being off Fiorcet LP performed 08/27/2024. Negative for bacterial. Viral etiology still possible so acyclovir started. Speech therapy note reviewed. Diet adjusted CSF HSV PCR was negative so Acyclovir stopped. VDRL and EBV DNA also negative. Neurology consulted and recommended pt to follow-up outpatient in 3 weeks for Alzheimer's workup. Keppra started 09/01. No significant signs of improvement. Changed to oral Keppra Okay to discharge if okay with others. (2) Hyperparathyroidism: Code(s): E21.3 - Hyperparathyroidism, unspecified Status: Acute Assessment and Plan: Hypercalcemia noted. Started on IV fluids as BRADY also worsening. iPTH elevated which explains the hypercalcemia. [id number] probably related to the hypercalcemia. TSH normal. iPTH 136 (and has been elevated since 2021) Calcium level better with IV fluids. Calcitonin given with benefit Bone scan showing no evidence of malignancy. Continue to follow (3) Acute respiratory failure with hypoxia: Code(s): J96.01 - Acute respiratory failure with hypoxia Status: Acute Assessment and Plan: Patient is not on any baseline oxygen during the day however is requiring 2-4 L nasal cannula now due to hypoxia in the ER with oxygen saturation of 87% on room air. CXR showing airspace opacities in the lower lung zones. BNP 480. Respiratory panel was negative for influenza A and B, RSV, COVID ABG showed normal pH of 7.366, pCO2 46.2, PO2 58.7, bicarb 25.9 on 2L WBC count was normal and was afebrile. Patient was started on abx while in the ED. D-dimer mildly elevated but V/Q scan low probability and LE venous doppler was negative (limited study and could only get right LE) EKG showing sinus rhythm with a rate of 66, QTC 423 CT chest 08/27 showing mild atelectasis ABG 09/03 showing 7.39/45/64 on 2L. Wean O2 as tolerated (4) CHF (congestive heart failure), NYHA class I: Qualifiers: Congestive heart failure type: unspecified Qualified Code(s): I50.9 - Heart failure, unspecified Code(s): I50.9 - Heart failure, unspecified Status: Acute Assessment and Plan: Echo from 12/2021 showed normal LV systolic function (EF of 65-70%), grade 1 diastolic dysfunction. CXR reporting airspace opacities in the lower lung zones likely atelectasis. BNP 483 A one time dose of 40 mg of IV Lasix ordered. Further diuresis held considering renal function Repeat Echo EF 65-70% Lasix was on hold. Renal function stabilized. We resumed home Lasix at half dose but Cr up to 2.6 so lasix held again. Cr better today. Follow off of lasix (5) Type 2 diabetes mellitus: Qualifiers: Diabetes mellitus ad terminal makeup operator insulin use: with ad terminal makeup operator use Diabetes mellitus complication status: with kidney complications Diabetes mellitus complication detail: with chronic kidney disease Chronic kidney disease stage: stage 3 (moderate) Chronic kidney disease stage 3 subtype: stage 3b (GFR 30-44) Qualified Code(s): E11.22 - Type 2 diabetes mellitus with diabetic chronic kidney disease; N18.32 - Chronic kidney disease, stage 3b; Z79.4 - shelter (current) use of insulin Code(s): E11.9 - Type 2 diabetes mellitus without complications Status: Chronic Assessment and Plan: A1c 9.5%. The patient's blood glucose was reviewed on 09/04 Glucose still poorly controlled. Continue AccuCheks covering with sliding scale. Hypoglycemia protocol available as needed. Diabetic diet. Higher glucose due to eating better? Continue to monitor. Advance Lantus and Novolog again (6) Chronic kidney disease, stage IV (severe): Code(s): N18.4 - Chronic kidney disease, stage 4 (severe) Status: Chronic Assessment and Plan: Creatinine 2.9, EGFR 16 on admission. Baseline creatinine 2.1-2.6 Cr up to 3.3 so diuretics stopped. Was on IV fluids and Cr trended down to 2.1 Resumed oral lasix at half home dose but Cr up to 2.6 so lasix held again. Cr better today. Follow off Lasix (7) Hypertension: Code(s): I10 - Essential (primary) hypertension Status: Chronic Assessment and Plan: Patient's blood pressure was reviewed on 09/04 Blood pressure better controlled overall. Will continue to follow (8) Obstructive sleep apnea on CPAP: Code(s): G47.33 - Obstructive sleep apnea (adult) (pediatric); Z99.89 - Dependence on other enabling machines and devices Status: Chronic Assessment and Plan: Patient does not wear CPAP but only wears 2L of oxygen at night only ABG as above Wean O2 during the day as tolerated. Continue O2 at night. (9) UTI (urinary tract infection): Qualifiers: Urinary tract infection type: site unspecified Hematuria presence: without hematuria Qualified Code(s): N39.0 - Urinary tract infection, site not specified Code(s): N39.0 - Urinary tract infection, site not specified Status: Acute Assessment and Plan: UA is consistent with UTI. UCx collected. Rocephin started. BCx negative. UCx grew Citrobacter that was essentially odonnell-sensitive. Rocephin x 3 days then changed to Cefepime then Bactrim to complete a course. Off abx currently (10) Hypothyroidism: Qualifiers: Hypothyroidism type: acquired Qualified Code(s): E03.9 - Hypothyroidism, unspecified Code(s): E03.9 - Hypothyroidism, unspecified Status: Chronic Assessment and Plan: TSH normal. Continue Synthroid (11) Elevated d-dimer: Code(s): R79.89 - Other specified abnormal findings of blood chemistry Status: Acute Assessment and Plan: As above. (12) Radial styloid fracture: Qualifiers: Encounter type: initial encounter Fracture type: closed Fracture alignment: nondisplaced Laterality: right Qualified Code(s): S52.514A - Nondisplaced fracture of right radial styloid process, initial encounter for closed fracture Code(s): S52.513A - Displaced fracture of unspecified radial styloid process, initial encounter for closed fracture Status: Acute Assessment and Plan: Right subacute stylod fx. Orthopedics consulted Brace for support Okay for range of motion Platform walker weight-bearing through elbow Brace for 4-6 weeks and follow-up outpatient clinic Plan DVT prophylaxis - Lovenox Code status - full Subjective Date/time seen: 09/04/24 13:23 Interval history: 74yo female with CHF, CKD, chronic resp failure on home O2, DM, ABDIAZIZ and HTN here for weakness and low BP. Patient mor alert but mental status waxes/wanes per staff. She is unable to provide hx. Review of Systems Review of Systems: ROS unobtainable: Yes unobtainable due to mental status Exam Narrative: AF 97.2 117/59 96 18 95% 2L Gen - NARD Chest - clear anteriorly and in the flanks. nml RR CV - RRR S1/S2 Abd - Soft, obese, NT Ext - trace pedal edema. Right wrist in soft cast. Neuro - Awake, alert. Mostly aphasic. follows commands. Psych - odd affect, laughs inapproppriately. Skin - Warm and dry Objective Data Vital Signs Vital Signs: Vital Signs - 24 hr 09/03/24 13:36 09/03/24 13:42 09/03/24 14:00 Temperature 97.6 F Pulse Rate 89 82 84 Respiratory Rate 18 18 18 Blood Pressure 134/60 Pulse Oximetry 97 Oxygen Delivery Oxygen Flow Rate Fraction of Inspired Oxygen 09/03/24 20:54 09/03/24 20:54 09/03/24 20:59 Temperature Pulse Rate 97 100 Respiratory Rate 18 18 Blood Pressure Pulse Oximetry 93 Oxygen Delivery Nasal Cannula Oxygen Flow Rate 2 Fraction of Inspired Oxygen 09/03/24 20:00 09/03/24 22:00 09/04/24 07:14 Temperature 97.5 F L Pulse Rate 96 Respiratory Rate 16 Blood Pressure 131/68 Pulse Oximetry 95 93 95 Oxygen Delivery Nasal Cannula Nasal Cannula Oxygen Flow Rate 3 2 Fraction of Inspired Oxygen 28 09/04/24 07:14 09/04/24 07:21 09/04/24 06:00 Temperature 97.2 F L Pulse Rate 105 H 103 H 105 H Respiratory Rate 18 18 16 Blood Pressure 117/59 L Pulse Oximetry 95 Oxygen Delivery Oxygen Flow Rate Fraction of Inspired Oxygen 09/04/24 08:44 Temperature Pulse Rate 96 Respiratory Rate Blood Pressure Pulse Oximetry Oxygen Delivery Oxygen Flow Rate Fraction of Inspired Oxygen Intake/Output Intake/Output: Intake & Output 09/01/24 09/02/24 09/03/24 09/04/24 23:59 23:59 23:59 23:59 Intake Total 1450 1550 1323 1080 Output Total 1450 250 300 Balance 0 1300 1023 1080 Meds/Results Medications: Active Medications Generic Name Dose Route Start Last Admin Trade Name Freq PRN Reason Stop Dose Admin Acetaminophen 650 mg 08/17/24 16:39 09/01/24 17:47 Acetaminophen 325 Mg Tablet PO 650 mg Q4H PRN Administration Mild Pain (1-3) or Fever Albuterol/Ipratropium 3 ml 08/29/24 14:00 09/04/24 07:13 Ipratropium 0.5 Mg/Albuterol Sulfate 2.5 Mg Ampul.Neb 3 Ml INHALATION 3 ml [id number] KAELA Administration Allopurinol 300 mg 08/18/24 09:00 09/04/24 08:43 Allopurinol 300 Mg Tablet PO 300 mg DAILY KAELA Administration Amlodipine Besylate 2.5 mg 09/02/24 10:45 09/04/24 08:44 Amlodipine Besylate 2.5 Mg Tablet PO 2.5 mg QAM KAELA Administration Aspirin 81 mg 08/18/24 09:00 09/04/24 08:43 Aspirin 81 Mg Enteric Tablet PO 81 mg QAM KAELA Administration Atorvastatin Calcium 10 mg 08/17/24 21:00 09/03/24 20:33 Atorvastatin 10 Mg Tablet PO 10 mg HS KAELA Administration Benzonatate 100 mg 08/17/24 20:42 08/26/24 10:07 Benzonatate 100 Mg Capsule PO 100 mg TID PRN Administration Cough Calcitonin Morrow 167 units 09/04/24 18:00 Calcitonin Morrow Inj 400 Units/2 Ml Vial SUB-Q 09/06/24 06:01 Q12H KAELA Calcitonin Morrow 167 units 09/04/24 18:01 Calcitonin Morrow Inj 400 Units/2 Ml Vial SUB-Q 09/06/24 06:02 Q12H KAELA Calcitonin Morrow 167 units 09/04/24 18:02 Calcitonin Morrow Inj 400 Units/2 Ml Vial SUB-Q 09/06/24 06:03 Q12H [facility] Cyanocobalamin 1,000 mcg 08/31/24 09:00 09/04/24 08:44 Cyanocobalamin 1,000 Mcg Tablet PO 1,000 mcg QAM KAELA Administration Dextrose 12.5 gm 08/17/24 17:18 Dextrose 50% 25 Gm/50 Ml Syringe IV PUSH PRN PRN Hypoglycemia Protocol Empagliflozin 10 mg 08/24/24 09:00 09/04/24 08:44 Empagliflozin 10 Mg Tablet BY MOUTH 10 mg DAILY KAELA Administration Enoxaparin Sodium 40 mg 08/23/24 09:00 09/04/24 08:44 Enoxaparin 40 Mg/0.4 Ml Syringe SUB-Q 40 mg DAILY KAEAL Administration Escitalopram Oxalate 20 mg 08/18/24 09:00 09/04/24 08:44 Escitalopram Oxalate 10 Mg Tablet PO 20 mg DAILY KAELA Administration Fluticasone Propionate 2 spray 08/18/24 09:00 09/04/24 08:43 Fluticasone Propionate 0.05% Na Spr 16 Gm Btl (*Bkc) NASAL 2 spray DAILY KAELA Administration Furosemide 40 mg 08/31/24 16:40 09/02/24 13:22 Furosemide 40 Mg Tablet PO 40 mg BID@0800,1400 KAELA Administration Gabapentin 300 mg 08/17/24 21:00 09/03/24 20:33 Gabapentin 300 Mg Capsule PO 300 mg QHS KAELA Administration Glucagon 1 mg 08/17/24 17:18 Glucagon For Inj 1 Mg Vial IM PRN PRN Hypoglycemia Protocol Glucose 15 gm 08/17/24 17:18 Glucose Oral Gel 15 Gm Of Glucse In 37.5 Gm Tube PO PRN PRN Hypoglycemia Protocol Dextrose 1,000 mls @ 100 mls/hr 08/17/24 17:18 Dextrose 5% 1,000 Ml IVPB PRN PRN Hypoglycemia Protocol Insulin Aspart 2 - 4 units 08/17/24 21:00 09/03/24 20:22 Insulin Aspart (*Bkc) 100 Units/Ml SUB-Q Not Given HS KAELA Protocol Insulin Aspart 2 - 5 units 08/24/24 17:00 09/04/24 12:52 Insulin Aspart (*Bkc) 100 Units/Ml SUB-Q 2 units TIDWM KAELA Administration Protocol Insulin Aspart 18 units 09/01/24 17:00 09/04/24 12:52 Insulin Aspart (*Bkc) 100 Units/Ml SUB-Q 18 units TIDWM KAELA Administration Insulin Glargine 50 units 09/03/24 21:00 09/03/24 20:33 Insulin Glargine (*Bkc) 100 Units/Ml SUB-Q 50 units HS KAELA Administration Levetiracetam 250 mg/ 750 mg 09/01/24 21:00 09/04/24 08:43 Levetiracetam 500 mg PO 750 mg Q12HR KAELA Administration Levothyroxine Sodium 50 mcg 08/18/24 06:30 09/04/24 05:58 Levothyroxine Sodium 50 Mcg Tablet PO 50 mcg DAILY@0630 KAELA Administration Metoprolol Succinate 25 mg 08/21/24 09:00 09/04/24 08:44 Metoprolol Succinate Ext Rel 25 Mg Tabcr PO 25 mg QAM KAELA Administration Ondansetron HCl 4 mg 08/17/24 17:17 Ondansetron Inj 4 Mg/2 Ml Vial IV PUSH Q6H PRN Nausea And Vomiting Pantoprazole Sodium 40 mg 08/18/24 09:00 09/04/24 08:44 Pantoprazole 40 Mg Tablet PO 40 mg QAM [facility] Administration Sodium Chloride 2 spray 08/17/24 20:42 08/27/24 09:18 Saline 0.65% Sha Soln 44 Ml Btl NASAL 2 spray QID PRN Administration nasal congestion/dryness Radiology Results: ITS Impressions Shoulder X-Ray 08/18/24 15:56 IMPRESSION: Osteopenia Head CT 08/20/24 09:56 IMPRESSION: 1. Stable moderate nonspecific cerebral white matter disease, which likely represents chronic small vessel ischemic disease. Pulmonary Perfusion Imaging 08/20/24 12:15 IMPRESSION: 1. Low probability for pulmonary embolism. Brain MRI 08/22/24 16:06 IMPRESSION: 1. Moderate nonspecific cerebral white matter disease and pontine disease, which likely represents chronic small vessel ischemic disease, stable from 05/26/2022. Chest X-Ray 08/22/24 18:38 IMPRESSION: Moderate interstitial edema. Subsegmental bibasilar atelectasis/consolidation. Possible small bilateral effusions. Hand X-Ray 08/23/24 15:26 IMPRESSION: Possible fracture in the distal radius. Clinical correlation and proper images are advised. Slight narrowing of the proximal and distal interphalangeal joints. Forearm X-Ray 08/24/24 11:01 IMPRESSION: 1. No fracture identified. 2. Loose bodies in the radiocarpal compartment. Modified Barium Swallow 08/24/24 14:17 IMPRESSION: Minimal pharyngeal dysphagia with trace shallow laryngeal penetration without aspiration. Please correlate with speech pathologist findings and specific feeding recommendations. Chest/Abdomen/Pelvis CT 08/27/24 09:37 IMPRESSION: 1. Mild atelectasis in the lungs. Lumbar Puncture Fluoroscopy 08/27/24 15:40 IMPRESSION: 1. Successful fluoro-guided lumbar puncture. Venous Doppler Study 08/29/24 23:29 IMPRESSION: 1. No deep venous thrombosis within the right lower extremity from the level of the mid femoral vein centrally to the right common femoral vein, as detailed above. Bone Scan Nuclear Medicine 09/03/24 15:42 IMPRESSION: 1. No evidence of malignancy. Labs Labs: Laboratory Results - last 24 hr 09/03/24 09/03/24 09/04/24 17:16 19:54 05:25 Sodium 137 Potassium 4.4 Chloride 100 Carbon Dioxide 29 Anion Gap 8 BUN 43 H Creatinine 2.40 H Estim Creat Clear Calc 27 Estimated GFR 20 L Glucose 222 H POC Capillary Glucose 217 H 200 H Calcium 10.8 H Phosphorus 4.1 Albumin 3.6 09/04/24 09/04/24 07:52 11:52 Sodium Potassium Chloride Carbon Dioxide Anion Gap BUN Creatinine Estim Creat Clear Calc Estimated GFR Glucose POC Capillary Glucose 227 H 214 H Calcium Phosphorus Albumin
[2024-09-04 15:59] LABS: Glucose Point of Care 194 mg/dl (65-105)
[2024-09-04] MEDS: CALCITONIN SALMON INJ 400 UNITS/2 ML VIAL 167 UNITS SUB-Q ×3 (16:42→16:43)
[2024-09-04] MEDS: ONDANSETRON INJ 4 MG/2 ML VIAL IV PUSH (20:04)
[2024-09-04] MEDS: INSULIN GLARGINE (*BKC) 100 UNITS/ML 50 UNITS SUB-Q (22:07)
[2024-09-04] MEDS: GABAPENTIN 300 MG CAPSULE PO (22:07)
[2024-09-04] MEDS: ATORVASTATIN 10 MG TABLET PO (22:07)
[2024-09-04 22:29] LABS: Glucose Point of Care 160 mg/dl (65-105)
[2024-09-05] VITALS (11 sets, daily range): BP systolic 139–158; BP diastolic 59–80; PULSE 87–103; RESP 16–19; TEMP 36.3–36.7; O2SAT 92–94
[2024-09-05] MEDS: LEVOTHYROXINE SODIUM 50 MCG TABLET PO (05:54)
[2024-09-05] MEDS: CALCITONIN SALMON INJ 400 UNITS/2 ML VIAL 167 UNITS SUB-Q ×6 (05:57→17:21)
[2024-09-05 06:49] LABS: Albumin Level 3.6 g/dL (3.5-5.1); Anion Gap 5 mmol/L (4-12); Blood Urea Nitrogen 45 mg/dL (7-17); Calcium 10.1 mg/dL (8.4-10.2); Carbon Dioxide 31 mmol/L (22-30); Chloride 102 mmol/L (98-107); Estimated CRCL calculation 28 ml/min; Estimated Glomerular Filt Rate 21; Glucose 187 mg/dL (65-110); Phosphorus 3.9 mg/dL (2.5-4.5); Potassium 4.5 mmol/L (3.4-5.0); Sodium 138 mmol/L (137-145)
[2024-09-05] MEDS: IPRATROPIUM 0.5 MG/ALBUTEROL SULFATE 2.5 MG AMPUL.NEB 3 ML INHALATION ×3 (07:26→19:29)
[2024-09-05 08:14] LABS: CSFMOG Ab with Reflex to Titer Negative
[2024-09-05 08:56] LABS: Glucose Point of Care 223 mg/dl (65-105)
--- NOTE | 2024-09-05 09:29 | P.PNIM_ITS ---
Progress Note: A&P Assessment and Plan (1) Change in mental status: Code(s): R41.82 - Altered mental status, unspecified Status: Acute (2) Confusion: Code(s): R41.0 - Disorientation, unspecified Status: Acute (3) Hyperparathyroidism: Code(s): E21.3 - Hyperparathyroidism, unspecified Status: Acute (4) Acute exacerbation of COPD with asthma: Code(s): J44.1 - Chronic obstructive pulmonary disease with (acute) exacerbation; J45.901 - Unspecified asthma with (acute) exacerbation Status: Acute (5) CHF (congestive heart failure), NYHA class I: Qualifiers: Congestive heart failure type: unspecified Qualified Code(s): I50.9 - Heart failure, unspecified Code(s): I50.9 - Heart failure, unspecified Status: Acute Plan Confusion: Code(s): R41.0 - Disorientation, unspecified Status: Acute Assessment and Plan: Patient had increasing altered mental status since admission. Patient slow to respond, able follow simple commands, staring into space. EEG 08/27 showing abnormal EEG due to presence of diffuse background slowing suggestive of generalized encephalopathy Such as may be seen with bihemispheric lesions or metabolic encephalopathy. No focal or paroxysmal epileptiform abnormalities were seen. ABG within normal limits. Ammonia level negative. TSH normal. VitD deficiency noted related to hypercalcemia. HIV negative in Nov. B12 low end of normal at 303. B12 replaced. MRI shows moderate nonspecific cerebral white matter disease and pontine disea se, which likely represents chronic small vessel ischemic disease, stable from 05/26/2022. Gabapentin, allopurinol and narcotic medications were held Was on Fioricet prn but may be taking this more regularly so consider withdrawal but seems less likely. Confusion probably multifactorial from dementia, withdrawal, hypercalcemia, hospital-acquired hypoactive delirium and/or psychiatric issues. Consider occult seizures. Consider related to uremia, hypercalcemia and/or being off Fiorcet LP performed 08/27/2024. Negative for bacterial. Viral etiology still possible so acyclovir started. Speech therapy note reviewed. Diet adjusted CSF HSV PCR was negative so Acyclovir stopped. VDRL and EBV DNA also negative. Neurology consulted and recommended pt to follow-up outpatient in 3 weeks for Alzheimer's workup. Keppra started 09/01. No significant signs of improvement. Changed to oral Keppra 09/05: Patient still confused, on no baseline. Patient is not oriented x3. I have discussed the case with neurologist, urologist considers possible dementia, worsening because of morbid obesity. Patient also has a poor intake, elevated BUN creatinine. Mental status change possible related to uremia. Will repeat urinalysis. Dr. Rivera will repeat EEG and Dr. Hernandez recommended brain MRI with contrast per Dr Ibanez. Will order MRI WITH CONTRAST Follow neurologist recommendation Hyperparathyroidism: Code(s): E21.3 - Hyperparathyroidism, unspecified Status: Acute Assessment and Plan: Hypercalcemia noted. Started on IV fluids as BRADY also worsening. iPTH elevated which explains the hypercalcemia. [id number] 19 probably related to the hypercalcemia. TSH normal. iPTH 136 (and has been elevated since 2021) Calcium level better with IV fluids. Calcitonin given with benefit Bone scan showing no evidence of malignancy. Continue to follow (3) Acute respiratory failure with hypoxia: Code(s): J96.01 - Acute respiratory failure with hypoxia Status: Acute Assessment and Plan: Patient is not on any baseline oxygen during the day however is requiring 2-4 L nasal cannula now due to hypoxia in the ER with oxygen saturation of 87% on room air. CXR showing airspace opacities in the lower lung zones. BNP 480. Respiratory panel was negative for influenza A and B, RSV, COVID ABG showed normal pH of 7.366, pCO2 46.2, PO2 58.7, bicarb 25.9 on 2L WBC count was normal and was afebrile. Patient was started on abx while in the ED. D-dimer mildly elevated but V/Q scan low probability and LE venous doppler was negative (limited study and could only get right LE) EKG showing sinus rhythm with a rate of 66, QTC 423 CT chest 08/27 showing mild atelectasis ABG 09/03 showing 7.39/45/64 on 2L. Wean O2 as tolerated (4) CHF (congestive heart failure), NYHA class I: Qualifiers: Congestive heart failure type: unspecified Qualified Code(s): I50.9 - Heart failure, unspecified Code(s): I50.9 - Heart failure, unspecified Status: Acute Assessment and Plan: Echo from 12/2021 showed normal LV systolic function (EF of 65-70%), grade 1 diastolic dysfunction. CXR reporting airspace opacities in the lower lung zones likely atelectasis. BNP 483 A one time dose of 40 mg of IV Lasix ordered. Further diuresis held considering renal function Repeat Echo EF 65-70% Lasix was on hold. Renal function stabilized. Cr up to 2.6 so lasix held again. Type 2 diabetes mellitus: Qualifiers: Diabetes mellitus terminal gauger insulin use: with intermediate use Diabetes mellitus complication status: with kidney complications Diabetes mellitus complication detail: with chronic kidney disease Chronic kidney disease stage: stage 3 (moderate) Chronic kidney disease stage 3 subtype: stage 3b (GFR 30-44) Qualified Code(s): E11.22 - Type 2 diabetes mellitus with diabetic chronic kidney disease; N18.32 - Chronic kidney disease, stage 3b; Z79.4 - senior care (current) use of insulin Code(s): E11.9 - Type 2 diabetes mellitus without complications Status: Chronic Assessment and Plan: A1c 9.5%. The patient's blood glucose was reviewed on 09/04 Glucose still poorly controlled. Continue AccuCheks covering with sliding scale. Hypoglycemia protocol available as needed. Diabetic diet. Higher glucose due to eating better? Continue to monitor. Advance Lantus and Novolog again (6) Chronic kidney disease, stage IV (severe): Code(s): N18.4 - Chronic kidney disease, stage 4 (severe) Status: Chronic Assessment and Plan: Creatinine 2.9, EGFR 16 on admission. Baseline creatinine 2.1-2.6 Cr up to 3.3 so diuretics stopped. Was on IV fluids and Cr trended down to 2.1 off lasix NS 100ml/h poor intake Will place Calderon catheter in because or urine retention. Repeat urinalysis Hypertension: Code(s): I10 - Essential (primary) hypertension Status: Chronic Assessment and Plan: Patient's blood pressure was reviewed on 09/04 Blood pressure better controlled overall. Will continue to follow (8) Obstructive sleep apnea on CPAP: Code(s): G47.33 - Obstructive sleep apnea (adult) (pediatric); Z99.89 - Dependence on other enabling machines and devices Status: Chronic Assessment and Plan: Patient does not wear CPAP but only wears 2L of oxygen at night only ABG as above Wean O2 during the day as tolerated. Continue O2 at night. (9) UTI (urinary tract infection): Qualifiers: Urinary tract infection type: site unspecified Hematuria presence: without hematuria Qualified Code(s): N39.0 - Urinary tract infection, site not specified Code(s): N39.0 - Urinary tract infection, site not specified Status: Acute Assessment and Plan: UA is consistent with UTI. UCx collected. Rocephin started. BCx negative. UCx grew Citrobacter that was essentially odonnell-sensitive. Rocephin x 3 days then changed to Cefepime then Bactrim to complete a course. Off abx currently (10) Hypothyroidism: Qualifiers: Hypothyroidism type: acquired Qualified Code(s): E03.9 - Hypothyroidism, unspecified Code(s): E03.9 - Hypothyroidism, unspecified Status: Chronic Assessment and Plan: TSH normal. Continue Synthroid (11) Elevated d-dimer: Code(s): R79.89 - Other specified abnormal findings of blood chemistry Status: Acute Assessment and Plan: As above. (12) Radial styloid fracture: Qualifiers: Encounter type: initial encounter Fracture type: closed Fracture alignment: nondisplaced Laterality: right Qualified Code(s): S52.514A - Nondisplaced fracture of right radial styloid process, initial encounter for closed fracture Code(s): S52.513A - Displaced fracture of unspecified radial styloid process, initial encounter for closed fracture Status: Acute Assessment and Plan: Right subacute stylod fx. Orthopedics consulted Brace for support Okay for range of motion Platform walker weight-bearing through elbow Brace for 4-6 weeks and follow-up outpatient clinic Plan DVT prophylaxis - Lovenox Code status - full Patient has difficulty with ambulation, consult PT OT business services coordinator for evaluation and assisting placement. Patient may benefit from care home replacement Subjective Date/time seen: 09/05/24 09:29 Interval history: I saw and examined the patient today, patient is lethargic, unable to provide detailed history. Patient denies headache, focal weakness, numbness or vision change. Per nurse report, patient has urinary retention. Patient is afebrile, blood pressure stable, labs reviewed, patient has elevated BUN creatinine 45/2.3. Patient has poor intake per nurse report. Review of Systems Review of Systems: ROS negative except above Constitutional: Comments: GENERAL: Morbid obesity, in no acute distress. Well-nourished. - EYES: EOMI. Anicteric. - HENT: Moist mucous membranes. - LUNGS: Clear to auscultation bilateral ly, no wheezing, rhonchi, or rales. - CARDIOVASCULAR: Regular rate and rhyth m. No murmur. No JVD. - ABDOMEN: Soft, non-tender and non-dist ended. No palpable masses. - EXTREMITIES: No edema. Peripheral puls es 2+. Non-tender. - NEUROLOGIC: No focal neurological defi cits. CN II-XII grossly intact. - PSYCHIATRIC: Awake, Alert, not oriente d x 3. Appropriate mood and affect. General weakness - SKIN: No rashes or lesions. Warm. - LYMPH: No cervical lymphadenopathy. Objective Data Vital Signs Vital Signs: Vital Signs - 24 hr 09/04/24 14:23 09/04/24 14:31 09/04/24 14:00 Temperature 96.9 F L Pulse Rate 104 H 101 H 100 Respiratory Rate 18 18 20 Blood Pressure 112/50 L Pulse Oximetry 94 Oxygen Delivery Oxygen Flow Rate Fraction of Inspired Oxygen 09/04/24 20:00 09/04/24 20:26 09/04/24 21:00 Temperature 97.9 F Pulse Rate 91 101 H Respiratory Rate 18 18 Blood Pressure 143/66 H Pulse Oximetry 91 93 Oxygen Delivery Nasal Cannula Oxygen Flow Rate 1 Fraction of Inspired Oxygen 09/04/24 21:10 09/05/24 04:32 09/05/24 07:28 Temperature 98 F Pulse Rate 99 95 87 Respiratory Rate 18 18 18 Blood Pressure 139/59 L Pulse Oximetry 93 Oxygen Delivery Oxygen Flow Rate Fraction of Inspired Oxygen 09/05/24 07:28 09/05/24 07:35 Temperature Pulse Rate 96 Respiratory Rate 18 Blood Pressure Pulse Oximetry 93 Oxygen Delivery Nasal Cannula Oxygen Flow Rate 2 Fraction of Inspired Oxygen Intake/Output Intake/Output: Intake & Output 09/02/24 09/03/24 09/04/24 09/05/24 23:59 23:59 23:59 23:59 Intake Total 1550 1323 1820 50 Output Total 250 300 Balance 1300 1023 1820 50 Meds/Results Medications: Active Medications Generic Name Dose Route Start Last Admin Trade Name Freq PRN Reason Stop Dose Admin Acetaminophen 650 mg 08/17/24 16:39 09/01/24 17:47 Acetaminophen 325 Mg Tablet PO 650 mg Q4H PRN Administration Mild Pain (1-3) or Fever Albuterol/Ipratropium 3 ml 08/29/24 14:00 09/05/24 07:26 Ipratropium 0.5 Mg/Albuterol Sulfate 2.5 Mg Ampul.Neb 3 Ml INHALATION 3 ml [id number] KAELA Administration Allopurinol 300 mg 08/18/24 09:00 09/04/24 08:43 Allopurinol 300 Mg Tablet PO 300 mg DAILY KAELA Administration Amlodipine Besylate 2.5 mg 09/02/24 10:45 09/04/24 08:44 Amlodipine Besylate 2.5 Mg Tablet PO 2.5 mg QAM KAELA Administration Aspirin 81 mg 08/18/24 09:00 09/04/24 08:43 Aspirin 81 Mg Enteric Tablet PO 81 mg QAM KAELA Administration Atorvastatin Calcium 10 mg 08/17/24 21:00 09/04/24 22:07 Atorvastatin 10 Mg Tablet PO 10 mg HS KAELA Administration Benzonatate 100 mg 08/17/24 20:42 08/26/24 10:07 Benzonatate 100 Mg Capsule PO 100 mg TID PRN Administration Cough Calcitonin [place] 167 units 09/04/24 18:00 09/05/24 05:57 Calcitonin [place] Inj 400 Units/2 Ml Vial SUB-Q 09/06/24 06:01 167 units Q12H KAELA Administration Calcitonin [place] 167 units 09/04/24 18:01 09/05/24 05:57 Calcitonin [place] Inj 400 Units/2 Ml Vial SUB-Q 09/06/24 06:02 167 units Q12H KAELA Administration Calcitonin [place] 167 units 09/04/24 18:02 09/05/24 05:57 Calcitonin [place] Inj 400 Units/2 Ml Vial SUB-Q 09/06/24 06:03 167 units Q12H KAELA Administration Cyanocobalamin 1,000 mcg 08/31/24 09:00 09/04/24 08:44 Cyanocobalamin 1,000 Mcg Tablet PO 1,000 mcg QAM KAELA Administration Dextrose 12.5 gm 08/17/24 17:18 Dextrose 50% 25 Gm/50 Ml Syringe IV PUSH PRN PRN Hypoglycemia Protocol Empagliflozin 10 mg 08/24/24 09:00 09/04/24 08:44 Empagliflozin 10 Mg Tablet BY MOUTH 10 mg DAILY KAELA Administration Enoxaparin Sodium 40 mg 08/23/24 09:00 09/04/24 08:44 Enoxaparin 40 Mg/0.4 Ml Syringe SUB-Q 40 mg DAILY KAELA Administration Escitalopram Oxalate 20 mg 08/18/24 09:00 09/04/24 08:44 Escitalopram Oxalate 10 Mg Tablet PO 20 mg DAILY KAELA Administration Fluticasone Propionate 2 spray 08/18/24 09:00 09/04/24 08:43 Fluticasone Propionate 0.05% Na Spr 16 Gm Btl (*Bkc) NASAL 2 spray DAILY KAELA Administration Furosemide 40 mg 08/31/24 16:40 09/02/24 13:22 Furosemide 40 Mg Tablet PO 40 mg BID@0800,1400 KAELA Administration Gabapentin 300 mg 08/17/24 21:00 09/04/24 22:07 Gabapentin 300 Mg Capsule PO 300 mg QHS KAELA Administration Glucagon 1 mg 08/17/24 17:18 Glucagon For Inj 1 Mg Vial IM PRN PRN Hypoglycemia Protocol Glucose 15 gm 08/17/24 17:18 Glucose Oral Gel 15 Gm Of Glucse In 37.5 Gm Tube PO PRN PRN Hypoglycemia Protocol Dextrose 1,000 mls @ 100 mls/hr 08/17/24 17:18 Dextrose 5% 1,000 Ml IVPB PRN PRN Hypoglycemia Protocol Insulin Aspart 2 - 4 units 08/17/24 21:00 09/04/24 22:13 Insulin Aspart (*Bkc) 100 Units/Ml SUB-Q Not Given HS KAELA Protocol Insulin Aspart 2 - 5 units 08/24/24 17:00 09/04/24 18:38 Insulin Aspart (*Bkc) 100 Units/Ml SUB-Q Not Given TIDWM [facility] Protocol Insulin Aspart 18 units 09/01/24 17:00 09/04/24 16:42 Insulin Aspart (*Bkc) 100 Units/Ml SUB-Q 18 units TIDWM KAELA Administration Insulin Glargine 50 units 09/03/24 21:00 09/04/24 22:07 Insulin Glargine (*Bkc) 100 Units/Ml SUB-Q 50 units HS KAELA Administration Levetiracetam 250 mg/ 750 mg 09/01/24 21:00 09/04/24 22:07 Levetiracetam 500 mg PO 750 mg Q12HR KAELA Administration Levothyroxine Sodium 50 mcg 08/18/24 06:30 09/05/24 05:54 Levothyroxine Sodium 50 Mcg Tablet PO 50 mcg DAILY@0630 KAELA Administration Metoprolol Succinate 25 mg 08/21/24 09:00 09/04/24 08:44 Metoprolol Succinate Ext Rel 25 Mg Tabcr PO 25 mg QAM KAELA Administration Ondansetron HCl 4 mg 08/17/24 17:17 09/04/24 20:04 Ondansetron Inj 4 Mg/2 Ml Vial IV PUSH 4 mg Q6H PRN Administration Nausea And Vomiting Pantoprazole Sodium 40 mg 08/18/24 09:00 09/04/24 08:44 Pantoprazole 40 Mg Tablet PO 40 mg QAM KAELA Administration Sodium Chloride 2 spray 08/17/24 20:42 08/27/24 09:18 Saline 0.65% Sha Soln 44 Ml Btl NASAL 2 spray QID PRN Administration nasal congestion/dryness Radiology Results: ITS Impressions Shoulder X-Ray 08/18/24 15:56 IMPRESSION: Osteopenia Head CT 08/20/24 09:56 IMPRESSION: 1. Stable moderate nonspecific cerebral white matter disease, which likely represents chronic small vessel ischemic disease. Pulmonary Perfusion Imaging 08/20/24 12:15 IMPRESSION: 1. Low probability for pulmonary embolism. Brain MRI 08/22/24 16:06 IMPRESSION: 1. Moderate nonspecific cerebral white matter disease and pontine disease, which likely represents chronic small vessel ischemic disease, stable from 05/26/2022. Chest X-Ray 08/22/24 18:38 IMPRESSION: Moderate interstitial edema. Subsegmental bibasilar atelectasis/consolidation. Possible small bilateral effusions. Hand X-Ray 08/23/24 15:26 IMPRESSION: Possible fracture in the distal radius. Clinical correlation and proper images are advised. Slight narrowing of the proximal and distal interphalangeal joints. Forearm X-Ray 08/24/24 11:01 IMPRESSION: 1. No fracture identified. 2. Loose bodies in the radiocarpal compartment. Modified Barium Swallow 08/24/24 14:17 IMPRESSION: Minimal pharyngeal dysphagia with trace shallow laryngeal penetration without aspiration. Please correlate with speech pathologist findings and specific feeding recommendations. Chest/Abdomen/Pelvis CT 08/27/24 09:37 IMPRESSION: 1. Mild atelectasis in the lungs. Lumbar Puncture Fluoroscopy 08/27/24 15:40 IMPRESSION: 1. Successful fluoro-guided lumbar puncture. Venous Doppler Study 08/29/24 23:29 IMPRESSION: 1. No deep venous thrombosis within the right lower extremity from the level of the mid femoral vein centrally to the right common femoral vein, as detailed above. Bone Scan Nuclear Medicine 09/03/24 15:42 IMPRESSION: 1. No evidence of malignancy. Labs Labs: Laboratory Results - last 24 hr 08/27/24 08/27/24 09/04/24 15:10 15:20 11:52 Sodium Potassium Chloride Carbon Dioxide Anion Gap BUN Creatinine Estim Creat Clear Calc Estimated GFR Glucose POC Capillary Glucose 214 H Calcium Phosphorus Albumin CSF Anti-Myelin Oligodenro Glycopr Negative CSF Lyme IgG Antibody No bands detected CSF Lyme IgG (Immblot) No bands detected CSF Lyme IgM Antibody No bands detected CSF Lyme IgM (Immblot) No bands detected Lyme IgG Bands Present No bands detected Lyme IgM Bands Present No bands detected 09/04/24 09/04/24 09/05/24 15:55 20:46 05:52 Sodium 138 Potassium 4.5 Chloride 102 Carbon Dioxide 31 H Anion Gap 5 BUN 45 H Creatinine 2.30 H Estim Creat Clear Calc 28 Estimated GFR 21 L Glucose 187 H POC Capillary Glucose 194 H 160 H Calcium 10.1 Phosphorus 3.9 Albumin 3.6 CSF Anti-Myelin Oligodenro Glycopr CSF Lyme IgG Antibody CSF Lyme IgG (Immblot) CSF Lyme IgM Antibody CSF Lyme IgM (Immblot) Lyme IgG Bands Present Lyme IgM Bands Present 09/05/24 08:54 Sodium Potassium Chloride Carbon Dioxide Anion Gap BUN Creatinine Estim Creat Clear Calc Estimated GFR Glucose POC Capillary Glucose 223 H Calcium Phosphorus Albumin CSF Anti-Myelin Oligodenro Glycopr CSF Lyme IgG Antibody CSF Lyme IgG (Immblot) CSF Lyme IgM Antibody CSF Lyme IgM (Immblot) Lyme IgG Bands Present Lyme IgM Bands Present
[2024-09-05] MEDS: ENOXAPARIN 40 MG/0.4 ML SYRINGE SUB-Q (09:32)
[2024-09-05] MEDS: INSULIN ASPART (*BKC) 100 UNITS/ML 18 UNITS SUB-Q ×2 (09:32→18:16)
[2024-09-05] MEDS: amLODIPine BESYLATE 2.5 MG TABLET PO (09:33)
[2024-09-05] MEDS: INSULIN ASPART (*BKC) 100 UNITS/ML SUB-Q (09:33)
[2024-09-05] MEDS: levETIRAcetam Tablet 250 MG, levETIRAcetam Tablet 500 MG 750 MG PO ×2 (09:34→20:33)
[2024-09-05] MEDS: ESCITALOPRAM OXALATE 10 MG TABLET 20 MG PO (09:34)
[2024-09-05] MEDS: CYANOCOBALAMIN 1,000 MCG TABLET 1000 MCG PO (09:34)
[2024-09-05] MEDS: EMPAGLIFLOZIN 10 MG TABLET BY MOUTH (09:34)
[2024-09-05] MEDS: allopurinoL 300 MG TABLET PO (09:34)
--- NOTE | 2024-09-05 12:10 | P.PNNP_ITS ---
Progress Note: A&P Assessment and Plan (1) Chronic kidney disease, stage 4 (severe): Code(s): N18.4 - Chronic kidney disease, stage 4 (severe) Status: Chronic Assessment and Plan: * baseline creatinine normally runs ~ 2.1 - 2.6mg/dl but has been as high as 2.9mg/dl * presumably secondary to hypertension, diabetes, vascular disease, and age- related change * diuretics on hold since volume status is stable * follow trend of repeat labs and UOP (2) Confusion: Code(s): R41.0 - Disorientation, unspecified Status: Acute Assessment and Plan: * as noted on admission * extensive work-up and evaluation noted to date * sedative medications on hold * Neurology following (3) Hypercalcemia: Code(s): E83.52 - Hypercalcemia Status: Acute Assessment and Plan: * known history * presumably due to known history of hyperparathyroidism * PTH is 130. FeCa high. c/w primary hpth (neg PT scan in 2018) * Hypercalcemia has been going on for a really long time. (There is a remote possibility that this could be secondary hyperparathyroidism cause by the kidney disease and then the high calcium is because of some calcium source such as bony Mets for Paget's disease or something, however after this long a period of time I think that metastatic disease would have been diagnosed.) * She should follow-up with endocrinology. * s/p pamidromate and calcitonin * follow repeat calcium levels (4) UTI (urinary tract infection): Qualifiers: Urinary tract infection type: site unspecified Hematuria presence: without hematuria Qualified Code(s): N39.0 - Urinary tract infection, site not specified Code(s): N39.0 - Urinary tract infection, site not specified Status: Acute Assessment and Plan: * completed course of antibiotics (5) Hypertension: Code(s): I10 - Essential (primary) hypertension Status: Chronic Assessment and Plan: * reasonable control * follow trend of hemodynamics (6) Type 2 diabetes mellitus: Qualifiers: Diabetes mellitus jail insulin use: with buttermaker continuous churn use Diabetes mellitus complication status: with kidney complications Diabetes mellitus complication detail: with chronic kidney disease Chronic kidney disease stage: stage 3 (moderate) Chronic kidney disease stage 3 subtype: stage 3b (GFR 30-44) Qualified Code(s): E11.22 - Type 2 diabetes mellitus with diabetic chronic kidney disease; N18.32 - Chronic kidney disease, stage 3b; Z79.4 - intermediate manager (current) use of insulin Code(s): E11.9 - Type 2 diabetes mellitus without complications Status: Chronic Assessment and Plan: * follow accu-cheks * glycemic control per hospitalists Not much else to really add -- will continue to follow intermittently. Subjective Date/time seen: 09/05/24 12:10 Interval history: Follow-up for chronic kidney disease. Chart reviewed since last seen -- still with intermittent confusion despite all testing/interventions to date; renal function/creatinine appears stable at this time; no acute distress voiced at the time of my visit; no other issues/evenrs overnight ot earlier today. Exam Narrative: General: elderly female in NAD Heart: normal S1 and S2; no rub Lungs: decreased breath sounds at bases Abdomen: soft, nontender, nondistended, positive bowel sounds Extremities: 1+ edema noted Skin: warm and dry Objective Data Vital Signs Vital Signs: Vital Signs 09/04/24 07:14 09/04/24 07:21 09/04/24 06:00 Temperature 97.2 F L Pulse Rate 105 H 103 H 105 H Respiratory Rate 18 18 16 Blood Pressure 117/59 L Pulse Oximetry 95 Oxygen Delivery Oxygen Flow Rate Fraction of Inspired Oxygen 09/04/24 08:44 09/04/24 14:23 09/04/24 14:31 Temperature Pulse Rate 96 104 H 101 H Respiratory Rate 18 18 Blood Pressure Pulse Oximetry Oxygen Delivery Oxygen Flow Rate Fraction of Inspired Oxygen 09/04/24 14:00 09/04/24 20:00 09/04/24 20:26 Temperature 96.9 F L 97.9 F Pulse Rate 100 91 Respiratory Rate 20 18 Blood Pressure 112/50 L 143/66 H Pulse Oximetry 94 91 93 Oxygen Delivery Nasal Cannula Oxygen Flow Rate 1 Fraction of Inspired Oxygen 28 09/04/24 21:00 09/04/24 21:10 09/05/24 04:32 Temperature 98 F Pulse Rate 101 H 99 95 Respiratory Rate 18 18 18 Blood Pressure 139/59 L Pulse Oximetry 93 Oxygen Delivery Oxygen Flow Rate Fraction of Inspired Oxygen 09/05/24 07:28 09/05/24 07:28 09/05/24 07:35 Temperature Pulse Rate 87 96 Respiratory Rate 18 18 Blood Pressure Pulse Oximetry 93 Oxygen Delivery Nasal Cannula Oxygen Flow Rate 2 Fraction of Inspired Oxygen 09/05/24 10:30 09/05/24 12:02 09/05/24 12:10 Temperature 98.0 F Pulse Rate 101 H 103 H 102 H Respiratory Rate 18 18 18 Blood Pressure 158/80 H Pulse Oximetry 93 Oxygen Delivery Oxygen Flow Rate Fraction of Inspired Oxygen Intake/Output Intake/Output: Intake & Output 09/03/24 09/04/24 09/05/24 09/06/24 23:59 23:59 23:59 23:59 Intake Total 1323 3875 800 9417 Output Total 300 400 650 Balance 1023 1820 -60 1027 Meds/Results Medications: Active Medications Generic Name Dose Route Start Last Admin Trade Name Freq PRN Reason Stop Dose Admin Acetaminophen 650 mg 08/17/24 16:39 09/05/24 18:12 Acetaminophen 325 Mg Tablet PO 650 mg Q4H PRN Administration Mild Pain (1-3) or Fever Albuterol/Ipratropium 3 ml 08/29/24 14:00 09/06/24 13:06 Ipratropium 0.5 Mg/Albuterol Sulfate 2.5 Mg Ampul.Neb 3 Ml INHALATION 3 ml [id number] KAELA Administration Allopurinol 300 mg 08/18/24 09:00 09/06/24 09:12 Allopurinol 300 Mg Tablet PO 300 mg DAILY KAELA Administration Amlodipine Besylate 2.5 mg 09/02/24 10:45 09/06/24 09:12 Amlodipine Besylate 2.5 Mg Tablet PO 2.5 mg QAM KAELA Administration Aspirin 81 mg 09/06/24 08:00 09/06/24 09:12 Aspirin 81 Mg Chewable Tablet PO 81 mg DAILY@0800 KAELA Administration Atorvastatin Calcium 10 mg 08/17/24 21:00 09/05/24 20:37 Atorvastatin 10 Mg Tablet PO 10 mg HS KAELA Administration Benzonatate 100 mg 08/17/24 20:42 08/26/24 10:07 Benzonatate 100 Mg Capsule PO 100 mg TID PRN Administration Cough Bisacodyl 10 mg 09/05/24 12:19 Bisacodyl 10 Mg Suppository RECTAL QAM PRN Constipation Cyanocobalamin 1,000 mcg 08/31/24 09:00 09/06/24 09:11 Cyanocobalamin 1,000 Mcg Tablet PO 1,000 mcg QAM KAELA Administration Dextrose 12.5 gm 08/17/24 17:18 Dextrose 50% 25 Gm/50 Ml Syringe IV PUSH PRN PRN Hypoglycemia Protocol Empagliflozin 10 mg 08/24/24 09:00 09/06/24 09:12 Empagliflozin 10 Mg Tablet BY MOUTH 10 mg DAILY KAELA Administration Enoxaparin Sodium 40 mg 08/23/24 09:00 09/06/24 09:10 Enoxaparin 40 Mg/0.4 Ml Syringe SUB-Q 40 mg DAILY KAELA Administration Escitalopram Oxalate 20 mg 08/18/24 09:00 09/06/24 09:12 Escitalopram Oxalate 10 Mg Tablet PO 20 mg DAILY KAELA Administration Fluticasone Propionate 2 spray 08/18/24 09:00 09/06/24 09:09 Fluticasone Propionate 0.05% Na Spr 16 Gm Btl (*Bkc) NASAL 2 spray DAILY KAELA Administration Furosemide 40 mg 08/31/24 16:40 09/02/24 13:22 Furosemide 40 Mg Tablet PO 40 mg BID@0800,1400 KAEAL Administration Gabapentin 300 mg 08/17/24 21:00 09/05/24 20:35 Gabapentin 300 Mg Capsule PO 300 mg QHS KAELA Administration Glucagon 1 mg 08/17/24 17:18 Glucagon For Inj 1 Mg Vial IM PRN PRN Hypoglycemia Protocol Glucose 15 gm 08/17/24 17:18 Glucose Oral Gel 15 Gm Of Glucse In 37.5 Gm Tube PO PRN PRN Hypoglycemia Protocol Dextrose 1,000 mls @ 100 mls/hr 08/17/24 17:18 Dextrose 5% 1,000 Ml IVPB PRN PRN Hypoglycemia Protocol Insulin Aspart 2 - 4 units 08/17/24 21:00 09/05/24 20:37 Insulin Aspart (*Bkc) 100 Units/Ml SUB-Q Not Given HS KAELA Protocol Insulin Aspart 2 - 5 units 08/24/24 17:00 09/06/24 12:34 Insulin Aspart (*Bkc) 100 Units/Ml SUB-Q Not Given TIDWM KAELA Protocol Insulin Aspart 18 units 09/01/24 17:00 09/06/24 12:57 Insulin Aspart (*Bkc) 100 Units/Ml SUB-Q 18 units TIDWM KAELA Administration Insulin Glargine 50 units 09/03/24 21:00 09/05/24 20:38 Insulin Glargine (*Bkc) 100 Units/Ml SUB-Q 50 units HS KAELA Administration Levetiracetam 250 mg/ 750 mg 09/01/24 21:00 09/06/24 09:11 Levetiracetam 500 mg PO 750 mg Q12HR KAELA Administration Levothyroxine Sodium 50 mcg 08/18/24 06:30 09/06/24 06:08 Levothyroxine Sodium 50 Mcg Tablet PO 50 mcg DAILY@0630 KAELA Administration Metoprolol Tartrate 12.5 mg 09/05/24 21:00 09/06/24 09:10 Metoprolol Tartrate 12.5 Mg Tablet PO 12.5 mg Q12HR KAELA Administration Ondansetron HCl 4 mg 08/17/24 17:17 09/04/24 20:04 Ondansetron Inj 4 Mg/2 Ml Vial IV PUSH 4 mg Q6H PRN Administration Nausea And Vomiting Pantoprazole Sodium 40 mg 09/05/24 21:00 09/06/24 09:10 Pantoprazole Sodium Iv 40 Mg Vial IV PUSH 40 mg Q12HR KAELA Administration Sodium Chloride 2 spray 08/17/24 20:42 08/27/24 09:18 Saline 0.65% Sha Soln 44 Ml Btl NASAL 2 spray QID PRN Administration nasal congestion/dryness Radiology Results: ITS Impressions Shoulder X-Ray 08/18/24 15:56 IMPRESSION: Osteopenia Head CT 08/20/24 09:56 IMPRESSION: 1. Stable moderate nonspecific cerebral white matter disease, which likely represents chronic small vessel ischemic disease. Pulmonary Perfusion Imaging 08/20/24 12:15 IMPRESSION: 1. Low probability for pulmonary embolism. Chest X-Ray 08/22/24 18:38 IMPRESSION: Moderate interstitial edema. Subsegmental bibasilar atelectasis/consolidation. Possible small bilateral effusions. Hand X-Ray 08/23/24 15:26 IMPRESSION: Possible fracture in the distal radius. Clinical correlation and proper images are advised. Slight narrowing of the proximal and distal interphalangeal joints. Forearm X-Ray 08/24/24 11:01 IMPRESSION: 1. No fracture identified. 2. Loose bodies in the radiocarpal compartment. Modified Barium Swallow 08/24/24 14:17 IMPRESSION: Minimal pharyngeal dysphagia with trace shallow laryngeal penetration without aspiration. Please correlate with speech pathologist findings and specific feeding recommendations. Chest/Abdomen/Pelvis CT 08/27/24 09:37 IMPRESSION: 1. Mild atelectasis in the lungs. Lumbar Puncture Fluoroscopy 08/27/24 15:40 IMPRESSION: 1. Successful fluoro-guided lumbar puncture. Venous Doppler Study 08/29/24 23:29 IMPRESSION: 1. No deep venous thrombosis within the right lower extremity from the level of the mid femoral vein centrally to the right common femoral vein, as detailed above. Bone Scan Nuclear Medicine 09/03/24 15:42 IMPRESSION: 1. No evidence of malignancy. Abdomen X-Ray 09/05/24 13:57 IMPRESSION: 1. Nonobstructive bowel gas pattern. Brain MRI 09/05/24 17:06 IMPRESSION: No acute cerebral infarction. No acute or subacute hemorrhage. Findings suggesting of microvascular ischemic disease. Bilateral mastoid effusions, left greater than right Labs Labs: Laboratory Results - last 28 hr 09/05/24 05:52 Sodium 138 Potassium 4.5 Chloride 102 Carbon Dioxide 31 H Anion Gap 5 BUN 45 H Creatinine 2.30 H Estim Creat Clear Calc 28 Estimated GFR 21 L Glucose 187 H Calcium 10.1 Phosphorus 3.9 Albumin 3.6
[2024-09-05 12:13] LABS: Glucose Point of Care 178 mg/dl (65-105)
--- NOTE | 2024-09-05 13:31 | PCNFU ---
Nutrition Follow-Up Complete: Inadequate Oral Intake as related to neurological changes as evidenced by poor po intake reported. Adequate Intake of at least 50% of meals/supplements - Not meeting goal PO. Not progressing Goal: Pt current nutrition is Diabetic consistent carb diet, soft & bite size L7 textures, Ensure Enlive TID for additional 350 kcal and 20 g protein each. Intakes are poor Nutrition recommendation: Alternative form of nutrition support may be needed, such as NG tube, because of poor intake. Last recorded weight is 137.7 kg. Bowel Motility: Last BM 08/28/24. Pt getting suppository today Labs Reviewed: GFR 21, BUN 45, Cre 2.3, Glu 187 Meds Noted: Lasix, insulin, jardiance, zofran, protonix Skin: No skin issues Additional Notes: Pt still not eating well and mental status remains altered. Not eating much. Plan for SNF at discharge. Pt may need nutrition support if intake does not increase. RD will monitor weight, labs, skin, oral intake, meds every 5 days.
--- NOTE | 2024-09-05 14:11 | WPDNEURCNPN ---
Assessment and Plan Assessment and plan (1) Dementia: Code(s): F03.90 - Unspecified dementia, unspecified severity, without behavioral disturbance, psychotic disturbance, mood disturbance, and anxiety Status: Acute Plan 1. Ongoing dementia with multiple underlying medical problems as outlined she is definitely intermittently appropriate and will benefit from the placement and the palliative physical therapy to avoid the development of the contractures in addition to the care to avoid the falls. We can obtain the bedside EEG for further documentation thank you in addition the family is insistent MRI of the head can be done to have back but I am concerned because her weight. Consult date: 09/05/24 HPI: Beto Bryan is a 73 year old female Admitted to the hospital on August 17, 2024 for the complaints of change in the mental status, initially evaluated by Dr. knutson. Patient has ongoing history of 1. Diabetes mellitus 2. Congestive heart failure 3. Chronic renal disease 4. Obstructive sleep apnea for which she is on CPAP 5. History of radial styloid light fracture patient reportedly had a fall which resulted in the ribs fracture was seen by Dr. Tien Youngblood in the office on July 03, 2024 and at that time he noted that she has memory dysfunction he consider the possibility of encephalitis and suggested the spinal fluid studies. EEG was also done which revealed moderate slowing of the background rhythm again suggestive of bihemispheric dysfunction but definitely not paroxysmal and was suggestive of metabolic encephalopathy. Patient was initially seen by Dr. Bennett Campos in his office for the ongoing complaints of migraine headaches and as mentioned before MRI had been done which was normal. Since hospitalization our most recent CBC on 09/03 revealed no leukocytosis MCV is 98.6 BMP on September 05, 2024 revealed her electrolytes were normal but BUN was 45 creatinine 2.30 estimated GFR only 21 glucose 187 her initial MRI on 08/22 was with moderate nonspecific white matter changes involving the pontine as well. Most recently her abdominal x-rays are negative, nuclear bone scan is negative, venous Doppler study is negative, chest CT scan is not significant except the left atrial enlargement of the heart and documented coronary artery calcification there is no pericardial fluid and lung scan is also negative as well as the abdomen and pelvic CT scan negative except the changes of cholecystectomy. At present she is receiving insulin, gabapentin 300mg at night, allopurinol 300mg daily, atorvastatin 10mg at night, the site of the pram 20mg daily, Synthroid 50mcg daily, Lovenox 40mg subQ daily, Jardiance 10mg daily, insulin 2 to 5 units subQ 3 times a day with meal, vitamin B12 supplements p.o. daily Lasix 40mg b.i.d., insulin 18units subcu 3 times a day with meal, levetiracetam 250mg +500 mg that is 750mg q.12 hours, and metoprolol 12.5mg q.12 hours. Review of Systems Review of Systems: All systems reviewed & are unremarkable except as noted in HPI and below [facility] Past Medical History Medical History BRADY (acute kidney injury) Anemia Aortic aneurysm Asthma Carpal tunnel syndrome on both sides Cephalgia Change in bowel habits Change in mental status CHF (congestive heart failure), NYHA class I Chronic kidney disease, stage 4 (severe) Chronic respiratory failure with hypoxia, on home oxygen therapy COPD (chronic obstructive pulmonary disease) Decubitus skin ulcer Deep venous thrombosis Diabetic neuropathy Diabetic polyneuropathy Dysphagia Gout Hypercalcemia Hyperkalemia Hyperlipidemia Hyperparathyroidism Hypertension Hyponatremia Hypothyroidism Neuropathy Obstructive sleep apnea on CPAP Osteoarthritis of facet joint of lumbar spine Pulmonary embolism Thoracic aortic aneurysm, without rupture Thyroid nodule Type 2 diabetes mellitus with hyperglycemia Surgical History Surgical History History of appendectomy History of cardiac catheterization History of cholecystectomy History of hysterectomy Hx of cataract removal with insertion of prosthetic lens Family History Family History Mother Diabetes mellitus Family history of bipolar disorder Hypertension Father Family history of cardiovascular disease Cerebrovascular accident Family history of emphysema Other Family history of anemia Family history of congestive heart failure Family history of obesity Social History Social History Social History: Surrogate decision maker: Beverly Flores, daughter. The patient also has a son. She is . 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 She is a lifelong nonsmoker. She does not use any alcohol or illicit drugs. Code status: Full code. Smoking status: Never smoker Second hand tobacco smoke exposure: No Alcohol intake: current Drinks per week: 1 Substance use: never Substance use type: does not use Do You Feel Safe in your Home?: Yes Lack of Transportation: No Lack of Food: Never True Current Housing: I Have Housing Concerned About Future Housing: No Difficulty Paying Gas/Electric Bills: No Difficulty Paying for Meds: No Currently Unemployed: No Education: Decline to Answer Difficulty w/ Childcare or Family Care: No Living arrangements: assisted living Additional living arrangements comments: Assisted living at [facility]. Gender identity (if verbalized by the patient): Female Spiritual care concerns: No Meds Home Medications and Allergies Home Medications Medication Instructions Recorded Confirmed Type magnesium oxide 400 mg PO DAILY 11/15/19 08/17/24 History allopurinol 300 mg tablet 300 mg PO DAILY 03/17/21 08/17/24 History atorvastatin 10 mg tablet 10 mg PO HS 05/27/21 08/17/24 History aspirin 81 mg capsule 81 mg PO DAILY 08/31/21 08/17/24 History fluticasone furoate 100 1 inh inhalation DAILY 12/29/21 08/17/24 History mcg-vilanterol 25 mcg/dose inhalation powder (Breo Ellipta) omega-3 fatty acids 1,000 mg PO DAILY 12/29/21 08/17/24 History escitalopram oxalate 20 mg tablet 20 mg PO DAILY #90 tabs 01/21/22 08/17/24 Rx (Lexapro) cholecalciferol (vitamin D3) 50 50 mcg PO DAILY 05/25/22 08/17/24 History mcg (2,000 unit) tablet guanfacine 2 mg tablet 2 mg PO HS 07/13/22 08/17/24 History pantoprazole 40 mg tablet,delayed 40 mg PO QAM 1 month #30 tabs 11/16/22 08/17/24 Rx release flash glucose sensor (FreeStyle #6 ea 06/29/23 08/17/24 Rx Jeffrey 2 Sensor kit) levothyroxine 50 mcg tablet 50 mcg PO DAILY #90 tabs 06/29/23 08/17/24 Rx cetirizine 10 mg tablet 10 mg PO DAILY PRN allergy 07/04/23 08/17/24 Rx symptoms #90 tabs dapagliflozin propanediol 10 mg 10 mg PO DAILY #90 tabs 01/05/24 08/17/24 Rx tablet (Farxiga) miconazole nitrate 2 % topical 1 applic topical BID #85 grams 01/10/24 08/17/24 Rx powder (Miconazorb AF) fluticasone propionate 50 2 spray intranasal DAILY #16 grams 01/17/24 08/17/24 Rx mcg/actuation nasal spray,suspension pen needle, diabetic 30 gauge x 01/24/24 08/17/24 History 1/3 fexofenadine 180 mg tablet 180 mg PO DAILY 02/08/24 08/17/24 History pen needle, diabetic, safety 30 #100 ea 03/13/24 08/17/24 Rx gauge x 1 (Novofine Autocover) amitriptyline 10 mg tablet 10 mg PO QHS 1 month #30 tabs 03/21/24 08/17/24 Rx albuterol sulfate 90 mcg/actuation 2 puff inhalation Q4H PRN 03/28/24 08/17/24 Rx aerosol inhaler (Ventolin HFA) shortness of breath or wheezing #8.5 grams albuterol sulfate 2.5 mg/0.5 mL 2.5 mg (0.5 mL) inhalation Q20M 05/09/24 08/17/24 Rx solution for nebulization PRN shortness of breath or wheezing #30 ea gabapentin 300 mg capsule 300 mg PO QHS #90 caps 05/09/24 08/17/24 Rx acetaminophen 325 mg tablet 650 mg PO BID 08/17/24 08/17/24 History acetaminophen 500 mg tablet 500 mg PO Q6H PRN mild pain or 08/17/24 08/17/24 History fever atogepant 10 mg tablet (Qulipta) 10 mg PO DAILY 08/17/24 08/17/24 History benzonatate 100 mg capsule 100 mg PO TID PRN Cough 08/17/24 08/17/24 History ykorhtiwfa-nndxzsgdvqhru-quvugjzl 2 cap PO DAILY PRN Pain 08/17/24 08/17/24 History 50 mg-300 mg-40 mg capsule (Fioricet) carvedilol 25 mg tablet 25 mg PO BIDWM 08/17/24 08/17/24 History furosemide 80 mg tablet See Rx Instructions .Route .COMPLEX 08/17/24 08/17/24 History insulin glargine 100 unit/mL (3 45 unit subcut QAM 08/17/24 08/17/24 History mL) subcutaneous pen (Basaglar KwikPen U-100 Insulin) insulin lispro 100 unit/mL 12 unit subcut QACBREAK E11.65 - 08/17/24 08/17/24 History subcutaneous pen (Humalog KwikPen Type 2 diabetes mellitus with (U-100) Insulin) hyperglycem insulin lispro 100 unit/mL See Rx Instructions .Route .COMPLEX 08/17/24 08/17/24 History subcutaneous pen (Humalog KwikPen (U-100) Insulin) insulin lispro 100 unit/mL See Rx Instructions .Route .COMPLEX 08/17/24 08/17/24 History subcutaneous pen (Humalog KwikPen (U-100) Insulin) sodium chloride 0.65 % nasal spray 2 spray intranasal QID PRN nasal 08/17/24 08/17/24 History aerosol (Deep Sea Nasal) congestion/dryness Allergies Allergy/AdvReac Type Severity Reaction Status Date / Time No Known Allergies Allergy Verified 08/17/24 22:00 Vital Signs Vital Signs - 24 hr 09/04/24 14:23 09/04/24 14:31 09/04/24 20:00 Temperature Pulse Rate 104 H 101 H Respiratory Rate 18 18 Blood Pressure Pulse Oximetry 91 Oxygen Delivery Nasal Cannula Oxygen Flow Rate 1 Fraction of Inspired Oxygen 28 09/04/24 20:26 09/04/24 21:00 09/04/24 21:10 Temperature 36.6 C Pulse Rate 91 101 H 99 Respiratory Rate 18 18 18 Blood Pressure 143/66 H Pulse Oximetry 93 Oxygen Delivery Oxygen Flow Rate Fraction of Inspired Oxygen 09/05/24 04:32 09/05/24 07:28 09/05/24 07:28 Temperature 36.6 C Pulse Rate 95 87 Respiratory Rate 18 18 Blood Pressure 139/59 L Pulse Oximetry 93 93 Oxygen Delivery Nasal Cannula Oxygen Flow Rate 2 Fraction of Inspired Oxygen 09/05/24 07:35 09/05/24 10:30 09/05/24 13:02 Temperature 36.7 C Pulse Rate 96 101 H 103 H Respiratory Rate 18 18 18 Blood Pressure 158/80 H Pulse Oximetry 93 Oxygen Delivery Oxygen Flow Rate Fraction of Inspired Oxygen 09/05/24 13:10 Temperature Pulse Rate 102 H Respiratory Rate 18 Blood Pressure Pulse Oximetry Oxygen Delivery Oxygen Flow Rate Fraction of Inspired Oxygen Exam Narrative: Awake alert follow the instruction only intermittently like turning head to the right side or to the left side move your right leg move the left leg though she had difficulties in following the instructions all the time but she is definitely appropriate most of the time she is able to move both upper and lower extremities reflexes sluggish but symmetrical plantars are downgoing and she was able to approach the examiner's hand with her right hand as well. Results Labs 09/03/24 05:14 09/05/24 05:52 Labs: BMP 09/05/24 05:52 Sodium 138 Potassium 4.5 Chloride 102 Carbon Dioxide 31 H BUN 45 H Creatinine 2.30 H Glucose 187 H Calcium 10.1 Liver Function 09/05/24 Range/Units 05:52 Albumin 3.6 (3.5-5.1) g/dL
[2024-09-05] MEDS: SODIUM CHLORIDE 0.9% IV 1,000 ML 100 ML IV CONT (15:12)
[2024-09-05] MEDS: BISACODYL 5 MG TABLET EC PO (15:13)
[2024-09-05] MEDS: BISACODYL 10 MG SUPPOSITORY RECTAL (15:13)
[2024-09-05 17:02] LABS: Add Urine Microscopic? YES; Appearance Urine Cloudy (Clear); Bacteria Urine None Seen /hpf; Bilirubin Urine Negative (Negative); Blood Urine Negative (Negative); Color Urine Yellow (Yellow); Glucose Urine UA 2+ mg/dL (Negative); Ketones Urine Negative (Negative); Leukocyte Esterase Ur Negative LEU/UL (Negative); Need Manual Microscopic Reviewed; Nitrate Urine Negative (Negative); Non Pathogenic Casts 0-2; Protein Urine 2+ mg/dL (Negative); RBC Urine 0-2 /hpf (0-2); Specific Grav Ur 1.017 (1.001-1.035); Squamous Epithelial Cell Urine Occasional /hpf (Few); Urobilinogen Urine 0.2 mg/dL (<2.0); pH Urine 5.5 (5.0-9.0)
[2024-09-05 17:35] LABS: Glucose Point of Care 204 mg/dl (65-105)
[2024-09-05] MEDS: ACETAMINOPHEN 325 MG TABLET 650 MG PO (18:12)
[2024-09-05] MEDS: FLUTICASONE PROPIONATE 0.05% NA SPR 16 GM BTL (*BKC) 2 SPRAY NASAL (18:34)
[2024-09-05] MEDS: PANTOPRAZOLE SODIUM IV 40 MG VIAL IV PUSH (20:33)
[2024-09-05] MEDS: METOPROLOL TARTRATE 12.5 MG TABLET PO (20:33)
[2024-09-05] MEDS: GABAPENTIN 300 MG CAPSULE PO (20:35)
[2024-09-05] MEDS: ATORVASTATIN 10 MG TABLET PO (20:37)
[2024-09-05] MEDS: INSULIN GLARGINE (*BKC) 100 UNITS/ML 50 UNITS SUB-Q (20:38)
[2024-09-05 22:07] LABS: Glucose Point of Care 170 mg/dl (65-105)
[2024-09-06] VITALS (12 sets, daily range): BP systolic 149–151; BP diastolic 55–64; PULSE 81–101; RESP 18–20; TEMP 36.4–36.6; O2SAT 87–95
[2024-09-06] MEDS: LEVOTHYROXINE SODIUM 50 MCG TABLET PO (06:08)
[2024-09-06] MEDS: CALCITONIN SALMON INJ 400 UNITS/2 ML VIAL 167 UNITS SUB-Q ×3 (06:09)
[2024-09-06 08:11] LABS: Glucose Point of Care 138 mg/dl (65-105)
[2024-09-06] MEDS: IPRATROPIUM 0.5 MG/ALBUTEROL SULFATE 2.5 MG AMPUL.NEB 3 ML INHALATION ×3 (08:20→21:31)
[2024-09-06] MEDS: FLUTICASONE PROPIONATE 0.05% NA SPR 16 GM BTL (*BKC) 2 SPRAY NASAL (09:09)
[2024-09-06] MEDS: PANTOPRAZOLE SODIUM IV 40 MG VIAL IV PUSH ×2 (09:10→20:34)
[2024-09-06] MEDS: ENOXAPARIN 40 MG/0.4 ML SYRINGE SUB-Q (09:10)
[2024-09-06] MEDS: METOPROLOL TARTRATE 12.5 MG TABLET PO ×2 (09:10→20:34)
[2024-09-06] MEDS: CYANOCOBALAMIN 1,000 MCG TABLET 1000 MCG PO (09:11)
[2024-09-06] MEDS: levETIRAcetam Tablet 250 MG, levETIRAcetam Tablet 500 MG 750 MG PO ×2 (09:11→20:33)
[2024-09-06] MEDS: allopurinoL 300 MG TABLET PO (09:12)
[2024-09-06] MEDS: amLODIPine BESYLATE 2.5 MG TABLET PO (09:12)
[2024-09-06] MEDS: ASPIRIN 81 MG CHEWABLE TABLET PO (09:12)
[2024-09-06] MEDS: EMPAGLIFLOZIN 10 MG TABLET BY MOUTH (09:12)
[2024-09-06] MEDS: ESCITALOPRAM OXALATE 10 MG TABLET 20 MG PO (09:12)
[2024-09-06] MEDS: INSULIN ASPART (*BKC) 100 UNITS/ML 18 UNITS SUB-Q ×3 (09:13→18:17)
--- NOTE | 2024-09-06 09:47 | P.PNIM_ITS ---
Progress Note: A&P Assessment and Plan (1) Change in mental status: Code(s): R41.82 - Altered mental status, unspecified Status: Acute (2) Confusion: Code(s): R41.0 - Disorientation, unspecified Status: Acute (3) Hyperparathyroidism: Code(s): E21.3 - Hyperparathyroidism, unspecified Status: Acute (4) Acute exacerbation of COPD with asthma: Code(s): J44.1 - Chronic obstructive pulmonary disease with (acute) exacerbation; J45.901 - Unspecified asthma with (acute) exacerbation Status: Acute (5) CHF (congestive heart failure), NYHA class I: Qualifiers: Congestive heart failure type: unspecified Qualified Code(s): I50.9 - Heart failure, unspecified Code(s): I50.9 - Heart failure, unspecified Status: Acute Plan Confusion: Code(s): R41.0 - Disorientation, unspecified Status: Acute Assessment and Plan: Patient had increasing altered mental status since admission. Patient slow to respond, able follow simple commands, staring into space. EEG 08/27 showing abnormal EEG due to presence of diffuse background slowing suggestive of generalized encephalopathy Such as may be seen with bihemispheric lesions or metabolic encephalopathy. No focal or paroxysmal epileptiform abnormalities were seen. ABG within normal limits. Ammonia level negative. TSH normal. VitD deficiency noted related to hypercalcemia. HIV negative in Nov. B12 low end of normal at 303. B12 replaced. MRI shows moderate nonspecific cerebral white matter disease and pontine disea se, which likely represents chronic small vessel ischemic disease, stable from 05/26/2022. Gabapentin, allopurinol and narcotic medications were held Was on Fioricet prn but may be taking this more regularly so consider withdrawal but seems less likely. Confusion probably multifactorial from dementia, withdrawal, hypercalcemia, hospital-acquired hypoactive delirium and/or psychiatric issues. Consider occult seizures. Consider related to uremia, hypercalcemia and/or being off Fiorcet LP performed 08/27/2024. Negative for bacterial. Viral etiology still possible so acyclovir started. Speech therapy note reviewed. Diet adjusted CSF HSV PCR was negative so Acyclovir stopped. VDRL and EBV DNA also negative. Neurology consulted and recommended pt to follow-up outpatient in 3 weeks for Alzheimer's workup. Keppra started 09/01. No significant signs of improvement. Changed to oral Keppra 09/05: Patient still confused, on no baseline. Patient is not oriented x3. I have discussed the case with neurologist, urologist considers possible dementia, worsening because of morbid obesity. Patient also has a poor intake, elevated BUN creatinine. Mental status change possible related to uremia. Will repeat urinalysis. Dr. Rivera will repeat EEG and Dr. Hernandez recommended brain MRI with contrast per Dr Ibanez. Will order MRI WITH CONTRAST Follow neurologist recommendation 09/06: Repeated brain MRI 09/05 showed No acute cerebral infarction. No acute or subacute hemorrhage. Findings suggesting of microvascular ischemic disease. Bilateral mastoid effusions, left greater than right Pending EEG. Follow-up neurologist recommendation Hyperparathyroidism: Code(s): E21.3 - Hyperparathyroidism, unspecified Status: Acute Assessment and Plan: Hypercalcemia noted. Started on IV fluids as BRADY also worsening. iPTH elevated which explains the hypercalcemia. [id number] probably related to the hypercalcemia. TSH normal. iPTH 136 (and has been elevated since 2021) Calcium level better with IV fluids. Calcitonin given with benefit Bone scan showing no evidence of malignancy. Continue to follow (3) Acute respiratory failure with hypoxia: Code(s): J96.01 - Acute respiratory failure with hypoxia Status: Acute Assessment and Plan: Patient is not on any baseline oxygen during the day however is requiring 2-4 L nasal cannula now due to hypoxia in the ER with oxygen saturation of 87% on room air. CXR showing airspace opacities in the lower lung zones. BNP 480. Respiratory panel was negative for influenza A and B, RSV, COVID ABG showed normal pH of 7.366, pCO2 46.2, PO2 58.7, bicarb 25.9 on 2L WBC count was normal and was afebrile. Patient was started on abx while in the ED. D-dimer mildly elevated but V/Q scan low probability and LE venous doppler was negative (limited study and could only get right LE) EKG showing sinus rhythm with a rate of 66, QTC 423 CT chest 08/27 showing mild atelectasis ABG 09/03 showing 7.39/45/64 on 2L. Wean O2 as tolerated CHF (congestive heart failure), NYHA class I: Qualifiers: Congestive heart failure type: unspecified Qualified Code(s): I50.9 - Heart failure, unspecified Code(s): I50.9 - Heart failure, unspecified Status: Acute Assessment and Plan: Echo from 12/2021 showed normal LV systolic function (EF of 65-70%), grade 1 diastolic dysfunction. CXR reporting airspace opacities in the lower lung zones likely atelectasis. BNP 483 A one time dose of 40 mg of IV Lasix ordered. Further diuresis held considering renal function Repeat Echo EF 65-70% Lasix was on hold. Renal function stabilized. Cr up to 2.6 so lasix held again. Type 2 diabetes mellitus: Qualifiers: Diabetes mellitus [facility] insulin use: with [facility] use Diabetes mellitus complication status: with kidney complications Diabetes mellitus complication detail: with chronic kidney disease Chronic kidney disease stage: stage 3 (moderate) Chronic kidney disease stage 3 subtype: stage 3b (GFR 30-44) Qualified Code(s): E11.22 - Type 2 diabetes mellitus with diabetic chronic kidney disease; N18.32 - Chronic kidney disease, stage 3b; Z79.4 - USP (current) use of insulin Code(s): E11.9 - Type 2 diabetes mellitus without complications Status: Chronic Assessment and Plan: A1c 9.5%. The patient's blood glucose was reviewed on 09/04 Glucose still poorly controlled. Continue AccuCheks covering with sliding scale. Hypoglycemia protocol available as needed. Diabetic diet. Higher glucose due to eating better? Continue to monitor. Advance Lantus and Novolog again Chronic kidney disease, stage IV (severe): Code(s): N18.4 - Chronic kidney disease, stage 4 (severe) Status: Chronic Assessment and Plan: Creatinine 2.9, EGFR 16 on admission. Baseline creatinine 2.1-2.6 Cr up to 3.3 so diuretics stopped. Was on IV fluids and Cr trended down to 2.1 off lasix NS 100ml/h poor intake Will place Calderon catheter in because or urine retention. Repeat urinalysis Hypertension: Code(s): I10 - Essential (primary) hypertension Status: Chronic Assessment and Plan: Patient's blood pressure was reviewed on 09/04 Blood pressure better controlled overall. Will continue to follow Obstructive sleep apnea on CPAP: Code(s): G47.33 - Obstructive sleep apnea (adult) (pediatric); Z99.89 - Dependence on other enabling machines and devices Status: Chronic Assessment and Plan: Patient does not wear CPAP but only wears 2L of oxygen at night only ABG as above Wean O2 during the day as tolerated. Continue O2 at night. UTI (urinary tract infection): Qualifiers: Urinary tract infection type: site unspecified Hematuria presence: without hematuria Qualified Code(s): N39.0 - Urinary tract infection, site not specified Code(s): N39.0 - Urinary tract infection, site not specified Status: Acute Assessment and Plan: UA is consistent with UTI. UCx collected. Rocephin started. BCx negative. UCx grew Citrobacter that was essentially odonnell-sensitive. Rocephin x 3 days then changed to Cefepime then Bactrim to complete a course. Off abx currently Urinary retention Bladder scan showed more than 400 mL urine Calderon catheter is placed Repeated urine culture showed cloudy urine, white blood 6-10 Patient finished antibiotic treatment Follow-up urine culture, will not start antibiotics now Hypothyroidism: Qualifiers: Hypothyroidism type: acquired Qualified Code(s): E03.9 - Hypothyroidism, unspecified Code(s): E03.9 - Hypothyroidism, unspecified Status: Chronic Assessment and Plan: TSH normal. Continue Synthroid (11) Elevated d-dimer: Code(s): R79.89 - Other specified abnormal findings of blood chemistry Status: Acute Assessment and Plan: As above. (12) Radial styloid fracture: Qualifiers: Encounter type: initial encounter Fracture type: closed Fracture alignment: nondisplaced Laterality: right Qualified Code(s): S52.514A - Nondi splaced fracture of right radial styloid process, initial encounter for closed fracture Code(s): S52.513A - Displaced fracture of unspecified radial styloid process, initial encounter for closed fracture Status: Acute Assessment and Plan: Right subacute stylod fx. Orthopedics consulted Brace for support Okay for range of motion Platform walker weight-bearing through elbow Brace for 4-6 weeks and follow-up outpatient clinic Patient has difficulty with ambulation, consult PT OT family services worker for evaluat ion and assisting placement. Patient may benefit from fci replacement Subjective Date/time seen: 09/06/24 09:47 Interval history: I saw and examined the patient today, patient mental status improving, oriented to time only, patient does not have obvious distress, patient denies chest pain shortness breast headache, abdomen pain, nausea vomiting diarrhea. I am not sure if patient can provide reliable history. Patient is afebrile, blood pressure stable, labs reviewed, patient has elevated BUN creatinine 45/2.3. Exam Narrative: GENERAL: Pleasant, in no acute distress. Well-nourished. Obesity - EYES: EOMI. Anicteric. - HENT: Moist mucous membranes. - LUNGS: Clear to auscultation bilateral ly, no wheezing, rhonchi, or rales. - CARDIOVASCULAR: Regular rate and rhyth m. No murmur. No JVD. - ABDOMEN: Soft, non-tender and non-dist ended. No palpable masses. Forty catheter in-situ, clear - EXTREMITIES: No edema. Peripheral puls es 2+. Non-tender. - NEUROLOGIC: No focal neurological defi cits. CN II-XII grossly intact. - PSYCHIATRIC: Awake, Alert and to time on a. Appropriate mood and affect. - SKIN: No rashes or lesions. Warm. - LYMPH: No cervical lymphadenopathy. Objective Data Vital Signs Vital Signs: Vital Signs - 24 hr 09/05/24 10:30 09/05/24 13:02 09/05/24 13:10 Temperature 98.0 F Pulse Rate 101 H 103 H 102 H Respiratory Rate 18 18 18 Blood Pressure 158/80 H Pulse Oximetry 93 Oxygen Delivery Oxygen Flow Rate 09/05/24 15:33 09/05/24 19:29 09/05/24 19:29 Temperature 97.4 F L Pulse Rate 97 99 Respiratory Rate 19 16 Blood Pressure 150/72 H Pulse Oximetry 92 94 Oxygen Delivery Nasal Cannula Oxygen Flow Rate 2 09/05/24 20:34 09/05/24 20:33 09/05/24 20:00 Temperature 97.8 F Pulse Rate 100 100 Respiratory Rate 18 Blood Pressure 151/61 H Pulse Oximetry 94 94 Oxygen Delivery Nasal Cannula Oxygen Flow Rate 2 09/06/24 05:58 09/06/24 08:22 09/06/24 08:22 Temperature 97.6 F Pulse Rate 88 82 Respiratory Rate 18 18 Blood Pressure 151/56 H Pulse Oximetry 95 94 Oxygen Delivery Nasal Cannula Oxygen Flow Rate 2 09/06/24 08:38 09/06/24 09:10 Temperature Pulse Rate 84 87 Respiratory Rate 18 Blood Pressure Pulse Oximetry Oxygen Delivery Oxygen Flow Rate Intake/Output Intake/Output: Intake & Output 09/03/24 09/04/24 09/05/24 09/06/24 23:59 23:59 23:59 23:59 Intake Total 1323 2633 698 8519 Output Total 300 400 650 Balance 1023 1820 -60 907 Meds/Results Medications: Active Medications Generic Name Dose Route Start Last Admin Trade Name Freq PRN Reason Stop Dose Admin Acetaminophen 650 mg 08/17/24 16:39 09/05/24 18:12 Acetaminophen 325 Mg Tablet PO 650 mg Q4H PRN Administration Mild Pain (1-3) or Fever Albuterol/Ipratropium 3 ml 08/29/24 14:00 09/06/24 08:20 Ipratropium 0.5 Mg/Albuterol Sulfate 2.5 Mg Ampul.Neb 3 Ml INHALATION 3 ml [id number] KAELA Administration Allopurinol 300 mg 08/18/24 09:00 09/06/24 09:12 Allopurinol 300 Mg Tablet PO 300 mg DAILY KAELA Administration Amlodipine Besylate 2.5 mg 09/02/24 10:45 09/06/24 09:12 Amlodipine Besylate 2.5 Mg Tablet PO 2.5 mg QAM KAELA Administration Aspirin 81 mg 09/06/24 08:00 09/06/24 09:12 Aspirin 81 Mg Chewable Tablet PO 81 mg DAILY@0800 KAELA Administration Atorvastatin Calcium 10 mg 08/17/24 21:00 09/05/24 20:37 Atorvastatin 10 Mg Tablet PO 10 mg HS KAELA Administration Benzonatate 100 mg 08/17/24 20:42 08/26/24 10:07 Benzonatate 100 Mg Capsule PO 100 mg TID PRN Administration Cough Bisacodyl 10 mg 09/05/24 12:19 Bisacodyl 10 Mg Suppository RECTAL QAM PRN Constipation Cyanocobalamin 1,000 mcg 08/31/24 09:00 09/06/24 09:11 Cyanocobalamin 1,000 Mcg Tablet PO 1,000 mcg QAM KAELA Administration Dextrose 12.5 gm 08/17/24 17:18 Dextrose 50% 25 Gm/50 Ml Syringe IV PUSH PRN PRN Hypoglycemia Protocol Empagliflozin 10 mg 08/24/24 09:00 09/06/24 09:12 Empagliflozin 10 Mg Tablet BY MOUTH 10 mg DAILY KAELA Administration Enoxaparin Sodium 40 mg 08/23/24 09:00 09/06/24 09:10 Enoxaparin 40 Mg/0.4 Ml Syringe SUB-Q 40 mg DAILY KAELA Administration Escitalopram Oxalate 20 mg 08/18/24 09:00 09/06/24 09:12 Escitalopram Oxalate 10 Mg Tablet PO 20 mg DAILY KAELA Administration Fluticasone Propionate 2 spray 08/18/24 09:00 09/06/24 09:09 Fluticasone Propionate 0.05% Na Spr 16 Gm Btl (*Bkc) NASAL 2 spray DAILY KAELA Administration Furosemide 40 mg 08/31/24 16:40 09/02/24 13:22 Furosemide 40 Mg Tablet PO 40 mg BID@0800,1400 KAELA Administration Gabapentin 300 mg 08/17/24 21:00 09/05/24 20:35 Gabapentin 300 Mg Capsule PO 300 mg QHS KAELA Administration Glucagon 1 mg 08/17/24 17:18 Glucagon For Inj 1 Mg Vial IM PRN PRN Hypoglycemia Protocol Glucose 15 gm 08/17/24 17:18 Glucose Oral Gel 15 Gm Of Glucse In 37.5 Gm Tube PO PRN PRN Hypoglycemia Protocol Dextrose 1,000 mls @ 100 mls/hr 08/17/24 17:18 Dextrose 5% 1,000 Ml IVPB PRN PRN Hypoglycemia Protocol Insulin Aspart 2 - 4 units 08/17/24 21:00 09/05/24 20:37 Insulin Aspart (*Bkc) 100 Units/Ml SUB-Q Not Given HS KAELA Protocol Insulin Aspart 2 - 5 units 08/24/24 17:00 09/06/24 09:14 Insulin Aspart (*Bkc) 100 Units/Ml SUB-Q Not Given TIDWM KAELA Protocol Insulin Aspart 18 units 09/01/24 17:00 09/06/24 09:13 Insulin Aspart (*Bkc) 100 Units/Ml SUB-Q 18 units TIDWM KAELA Administration Insulin Glargine 50 units 09/03/24 21:00 09/05/24 20:38 Insulin Glargine (*Bkc) 100 Units/Ml SUB-Q 50 units HS KAELA Administration Levetiracetam 250 mg/ 750 mg 09/01/24 21:00 09/06/24 09:11 Levetiracetam 500 mg PO 750 mg Q12HR KAELA Administration Levothyroxine Sodium 50 mcg 08/18/24 06:30 09/06/24 06:08 Levothyroxine Sodium 50 Mcg Tablet PO 50 mcg DAILY@0630 KAELA Administration Metoprolol Tartrate 12.5 mg 09/05/24 21:00 09/06/24 09:10 Metoprolol Tartrate 12.5 Mg Tablet PO 12.5 mg Q12HR KAELA Administration Ondansetron HCl 4 mg 08/17/24 17:17 09/04/24 20:04 Ondansetron Inj 4 Mg/2 Ml Vial IV PUSH 4 mg Q6H PRN Administration Nausea And Vomiting Pantoprazole Sodium 40 mg 09/05/24 21:00 09/06/24 09:10 Pantoprazole Sodium Iv 40 Mg Vial IV PUSH 40 mg Q12HR KAELA Administration Sodium Chloride 2 spray 08/17/24 20:42 08/27/24 09:18 Saline 0.65% Sha Soln 44 Ml Btl NASAL 2 spray QID PRN Administration nasal congestion/dryness Radiology Results: ITS Impressions Shoulder X-Ray 08/18/24 15:56 IMPRESSION: Osteopenia Head CT 08/20/24 09:56 IMPRESSION: 1. Stable moderate nonspecific cerebral white matter disease, which likely represents chronic small vessel ischemic disease. Pulmonary Perfusion Imaging 08/20/24 12:15 IMPRESSION: 1. Low probability for pulmonary embolism. Chest X-Ray 08/22/24 18:38 IMPRESSION: Moderate interstitial edema. Subsegmental bibasilar atelectasis/consolidation. Possible small bilateral effusions. Hand X-Ray 08/23/24 15:26 IMPRESSION: Possible fracture in the distal radius. Clinical correlation and proper images are advised. Slight narrowing of the proximal and distal interphalangeal joints. Forearm X-Ray 08/24/24 11:01 IMPRESSION: 1. No fracture identified. 2. Loose bodies in the radiocarpal compartment. Modified Barium Swallow 08/24/24 14:17 IMPRESSION: Minimal pharyngeal dysphagia with trace shallow laryngeal penet ration without aspiration. Please correlate with speech pathologist findings and specific feeding recommendations. Chest/Abdomen/Pelvis CT 08/27/24 09:37 IMPRESSION: 1. Mild atelectasis in the lungs. Lumbar Puncture Fluoroscopy 08/27/24 15:40 IMPRESSION: 1. Successful fluoro-guided lumbar puncture. Venous Doppler Study 08/29/24 23:29 IMPRESSION: 1. No deep venous thrombosis within the right lower extremity from the level of the mid femoral vein centrally to the right common femoral vein, as detailed above. Bone Scan Nuclear Medicine 09/03/24 15:42 IMPRESSION: 1. No evidence of malignancy. Abdomen X-Ray 09/05/24 13:57 IMPRESSION: 1. Nonobstructive bowel gas pattern. Brain MRI 09/05/24 17:06 IMPRESSION: No acute cerebral infarction. No acute or subacute hemorrhage. Findings suggesting of microvascular ischemic disease. Bilateral mastoid effusions, left greater than right Labs Labs: Laboratory Results - last 24 hr 09/05/24 09/05/24 09/05/24 12:09 16:04 17:20 POC Capillary Glucose 178 H 204 H Urine Color Yellow Urine Appearance Cloudy H Urine pH 5.5 Ur Specific [place] 1.017 Urine Protein 2+ H Urine Glucose (UA) 2+ H Urine Ketones Negative Ur Blood (Man) Negative Urine Nitrate Negative Urine Bilirubin Negative Urine Urobilinogen 0.2 Add Ur Microanalysis Reviewed Leukocyte Esterase Rfl Negative Urine RBC 0-2 Urine WBC 6-10 H Ur Squamous Epith Cells Occasional Urine Bacteria None seen Urine Casts 0-2 09/05/24 09/06/24 20:37 08:08 POC Capillary Glucose 170 H 138 H Urine Color Urine Appearance Urine pH Ur Specific [place] Urine Protein Urine Glucose (UA) Urine Ketones Ur Blood (Man) Urine Nitrate Urine Bilirubin Urine Urobilinogen Add Ur Microanalysis Leukocyte Esterase Rfl Urine RBC Urine WBC Ur Squamous Epith Cells Urine Bacteria Urine Casts
[2024-09-06 10:01] LABS: Hematocrit 42.8 % (37.0-47.0); Hemoglobin 12.7 g/dL (12.0-15.0); Mean Corpuscular HGB Conc 29.7 g/dl (32-36); Mean Corpuscular Hemoglobin 29.8 pg (26-34); Mean Corpuscular Volume 100.5 fl (80-100); Mean Platelet Volume 9.6 fl (7.4-10.4); Platelet Count Result 311 k/mm3 (150-375); Red Blood Count 4.26 M/mm3 (4.2-5.4); Red Cell Distribution Width 17.5 % (11.5-14.5); White Blood Count 7.5 K/mm3 (4.5-10.0)
[2024-09-06 10:33] LABS: Alanine Aminotransferase 16 U/L (6-35); Albumin Level 3.8 g/dL (3.5-5.1); Alkaline Phosphatase 89 U/L (38-126); Anion Gap 5 mmol/L (4-12); Aspartate Amino Transferase 31 U/L (14-36); Bilirubin,Total 0.7 mg/dL (0.2-1.3); Blood Urea Nitrogen 45 mg/dL (7-17); Carbon Dioxide 30 mmol/L (22-30); Chloride 103 mmol/L (98-107); Estimated CRCL calculation 34 ml/min; Estimated Glomerular Filt Rate 26; Glucose 186 mg/dL (65-110); Potassium 4.8 mmol/L (3.4-5.0); Sodium 138 mmol/L (137-145)
[2024-09-06 11:39] LABS: Glucose Point of Care 170 mg/dl (65-105)
[2024-09-06 16:49] LABS: Glucose Point of Care 141 mg/dl (65-105)
[2024-09-06] MEDS: ATORVASTATIN 10 MG TABLET PO (20:33)
[2024-09-06] MEDS: GABAPENTIN 300 MG CAPSULE PO (20:34)
[2024-09-06] MEDS: INSULIN GLARGINE (*BKC) 100 UNITS/ML 50 UNITS SUB-Q (20:36)
[2024-09-07] VITALS (10 sets, daily range): BP systolic 133–158; BP diastolic 60–75; PULSE 74–110; RESP 16–22; TEMP 36.2–36.5; O2SAT 92–97
[2024-09-07 00:40] LABS: Glucose Point of Care 155 mg/dl (65-105)
[2024-09-07] MEDS: IPRATROPIUM 0.5 MG/ALBUTEROL SULFATE 2.5 MG AMPUL.NEB 3 ML INHALATION ×2 (07:38→13:44)
[2024-09-07 07:50] LABS: Glucose Point of Care 200 mg/dl (65-105)
[2024-09-07 08:46] LABS: Reference Lab Test Name NDMA Receptor CSF
[2024-09-07] MEDS: INSULIN ASPART (*BKC) 100 UNITS/ML 18 UNITS SUB-Q ×3 (10:05→18:27)
[2024-09-07] MEDS: ESCITALOPRAM OXALATE 10 MG TABLET 20 MG PO (10:07)
[2024-09-07] MEDS: ASPIRIN 81 MG CHEWABLE TABLET PO (10:08)
[2024-09-07] MEDS: amLODIPine BESYLATE 2.5 MG TABLET PO (10:08)
[2024-09-07] MEDS: LEVOTHYROXINE SODIUM 50 MCG TABLET PO (10:08)
[2024-09-07] MEDS: allopurinoL 300 MG TABLET PO (10:08)
[2024-09-07] MEDS: PANTOPRAZOLE SODIUM IV 40 MG VIAL IV PUSH (10:08)
[2024-09-07] MEDS: EMPAGLIFLOZIN 10 MG TABLET BY MOUTH (10:08)
[2024-09-07] MEDS: levETIRAcetam Tablet 250 MG, levETIRAcetam Tablet 500 MG 750 MG PO ×2 (10:08→20:10)
[2024-09-07] MEDS: ACETAMINOPHEN 325 MG TABLET 650 MG PO (10:09)
[2024-09-07] MEDS: ENOXAPARIN 40 MG/0.4 ML SYRINGE SUB-Q (10:09)
[2024-09-07] MEDS: METOPROLOL TARTRATE 12.5 MG TABLET PO ×2 (10:09→20:10)
[2024-09-07] MEDS: CYANOCOBALAMIN 1,000 MCG TABLET 1000 MCG PO (10:09)
[2024-09-07] MEDS: FLUTICASONE PROPIONATE 0.05% NA SPR 16 GM BTL (*BKC) 2 SPRAY NASAL (10:10)
[2024-09-07] MEDS: INSULIN ASPART (*BKC) 100 UNITS/ML SUB-Q ×3 (10:11→18:27)
--- NOTE | 2024-09-07 10:56 | PCDIET ---
Spoke with speech therapy and hospitalist regarding modified diet. Patient is feeding with assist did tolerate meal yesterday. MD Orders for diet change to regular consistencies. Diet order: DBCC diet with Ensure Enlive TID.
[2024-09-07 11:27] LABS: Glucose Point of Care 274 mg/dl (65-105)
--- NOTE | 2024-09-07 12:44 | PM.IMPN ---
Progress Note: A&P Assessment and Plan (1) Change in mental status: Code(s): R41.82 - Altered mental status, unspecified Status: Acute (2) Confusion: Code(s): R41.0 - Disorientation, unspecified Status: Acute (3) Hyperparathyroidism: Code(s): E21.3 - Hyperparathyroidism, unspecified Status: Acute (4) Acute exacerbation of COPD with asthma: Code(s): J44.1 - Chronic obstructive pulmonary disease with (acute) exacerbation; J45.901 - Unspecified asthma with (acute) exacerbation Status: Acute (5) CHF (congestive heart failure), NYHA class I: Qualifiers: Congestive heart failure type: unspecified Qualified Code(s): I50.9 - Heart failure, unspecified Code(s): I50.9 - Heart failure, unspecified Status: Acute Plan # Confusion: Patient had increasing altered mental status since admission. Patient slow to respond, able follow simple commands, staring into space. EEG 08/27 showing abnormal EEG due to presence of diffuse background slowing suggestive of generalized encephalopathy Such as may be seen with bihemispheric lesions or metabolic encephalopathy. No focal or paroxysmal epileptiform abnormalities were seen. ABG within normal limits. Ammonia level negative. TSH normal. VitD deficiency noted related to hypercalcemia. HIV negative in Nov. B12 low end of normal at 303. B12 replaced. MRI shows moderate nonspecific cerebral white matter disease and pontine disease, which likely represents chronic small vessel ischemic disease, stable from 05/26/2022. Gabapentin, allopurinol and narcotic medications were held Was on Fioricet prn but may be taking this more regularly so consider withdrawal but seems less likely. Confusion probably multifactorial from dementia, withdrawal, hypercalcemia, hospital-acquired hypoactive delirium and/or psychiatric issues. Consider occult seizures. Consider related to uremia, hypercalcemia and/or being off Fiorcet LP performed 08/27/2024. Negative for bacterial. Viral etiology still possible so acyclovir started. Speech therapy note reviewed. Diet adjusted CSF HSV PCR was negative so Acyclovir stopped. VDRL and EBV DNA also negative. Neurology consulted and recommended pt to follow-up outpatient in 3 weeks for Alzheimer's workup. Keppra started 09/01. No significant signs of improvement. Changed to oral Keppra Repeat MRI with no acute stroke microvascular ischemic disease changes. Bilateral mastoid effusions left greater than right. # Hyperparathyroidism: Hypercalcemia noted. Started on IV fluids as BRADY also worsening. iPTH elevated which explains the hypercalcemia. CioW76-OH 19 probably related to the hypercalcemia. TSH normal. iPTH 136 (and has been elevated since 2021) Calcium level better with IV fluids. Calcitonin given with benefit Bone scan showing no evidence of malignancy. Continue to follow # Acute respiratory failure with hypoxia: Patient is not on any baseline oxygen during the day however is requiring 2-4 L nasal cannula now due to hypoxia in the ER with oxygen saturation of 87% on room air. CXR showing airspace opacities in the lower lung zones. BNP 480. Respiratory panel was negative for influenza A and B, RSV, COVID ABG showed normal pH of 7.366, pCO2 46.2, PO2 58.7, bicarb 25.9 on 2L WBC count was normal and was afebrile. Patient was started on abx while in the ED. D-dimer mildly elevated but V/Q scan low probability and LE venous doppler was negative (limited study and could only get right LE) EKG showing sinus rhythm with a rate of 66, QTC 423 CT chest 08/27 showing mild atelectasis ABG 09/03 showing 7.39/45/64 on 2L. Wean O2 as tolerated # CHF (congestive heart failure): Echo from 12/2021 showed normal LV systolic function (EF of 65-70%), grade 1 diastolic dysfunction. CXR reporting airspace opacities in the lower lung zones likely atelectasis. BNP 483 A one time dose of 40 mg of IV Lasix ordered. Further diuresis held considering renal function Repeat Echo EF 65-70% Lasix was on hold. Renal function stabilized. Cr up to 2.6 so lasix held again. # Type 2 diabetes mellitus: A1c 9.5%. The patient's blood glucose was reviewed on 09/04 Glucose still poorly controlled. Continue AccuCheks covering with sliding scale. Hypoglycemia protocol available as needed. Diabetic diet. Higher glucose due to eating better? Continue to monitor. Advance Lantus and Novolog again # Chronic kidney disease, stage IV (severe): Creatinine 2.9, EGFR 16 on admission. Baseline creatinine 2.1-2.6 Cr up to 3.3 so diuretics stopped. Was on IV fluids and Cr trended down to 2.1 off lasix NS 100ml/h poor intake Will place Calderon catheter in because or urine retention. Repeat urinalysis # Hypertension: Patient's blood pressure was reviewed on 09/04 Blood pressure better controlled overall. Will continue to follow # Obstructive sleep apnea on CPAP: Patient does not wear CPAP but only wears 2L of oxygen at night only ABG as above Wean O2 during the day as tolerated. Continue O2 at night. # UTI (urinary tract infection): UA is consistent with UTI. UCx collected. Rocephin started. BCx negative. UCx grew Citrobacter that was essentially odonnell-sensitive. Rocephin x 3 days then changed to Cefepime then Bactrim to complete a course. Off abx currently # Urinary retention Bladder scan showed more than 400 mL urine Calderon catheter is placed Repeated urine culture showed cloudy urine, white blood 6-10 Patient finished antibiotic treatment Follow-up urine culture, will not start antibiotics now # Hypothyroidism: TSH normal. Continue Synthroid # Elevated d-dimer: As above. # Radial styloid fracture: Right subacute stylod fx. Orthopedics consulted Brace for support Okay for range of motion Platform walker weight-bearing through elbow Brace for 4-6 weeks and follow-up outpatient clinic Patient has difficulty with ambulation, consult PT OT customer service coordinator for evaluation and assisting placement. Patient willl benefit from skilled nursing replacement Subjective Date/time seen: 09/07/24 12:44 Interval history: No overnight events. Patient remains confused. Follows some commands Review of Systems Review of Systems: ROS unobtainable: Yes unobtainable due to mental status Exam Narrative: GENERAL: Pleasant, in no acute distress. Well-nourished. Obesity - EYES: EOMI. Anicteric. - HENT: Moist mucous membranes. - LUNGS: Clear to auscultation bilaterally, no wheezing, rhonchi, or rales. - CARDIOVASCULAR: Regular rate and rhythm. No murmur. No JVD. - ABDOMEN: Soft, non-tender and non-distended. No palpable masses. Forty catheter in-situ, clear - EXTREMITIES: No edema. Peripheral pulses 2+. Non-tender. - NEUROLOGIC: No focal neurological deficits. CN II-XII grossly intact. - PSYCHIATRIC: Awake, Alert, follow some commands, Appropriate mood and affect. - SKIN: No rashes or lesions. Warm. - LYMPH: No cervical lymphadenopathy. Objective Data Vital Signs Vital Signs: Vital Signs - 24 hr 09/06/24 13:07 09/06/24 13:07 09/06/24 13:19 Temperature Pulse Rate 88 81 Respiratory Rate 20 20 Blood Pressure Pulse Oximetry 95 Oxygen Delivery Nasal Cannula Oxygen Flow Rate 2 09/06/24 14:00 09/06/24 20:28 09/06/24 20:34 Temperature 97.9 F 97.9 F Pulse Rate 93 98 100 Respiratory Rate 20 18 Blood Pressure 150/55 H 149/64 H Pulse Oximetry 95 94 Oxygen Delivery Oxygen Flow Rate 09/06/24 21:31 09/06/24 21:34 09/06/24 21:38 Temperature Pulse Rate 101 H 101 H 94 Respiratory Rate 20 20 Blood Pressure Pulse Oximetry 87 L Oxygen Delivery Nasal Cannula Oxygen Flow Rate 2 09/07/24 05:50 09/07/24 07:39 09/07/24 07:39 Temperature 97.1 F L Pulse Rate 92 74 Respiratory Rate 16 20 Blood Pressure 142/75 H Pulse Oximetry 94 92 Oxygen Delivery Nasal Cannula Oxygen Flow Rate 3 09/07/24 07:48 09/07/24 10:09 Temperature Pulse Rate 92 102 H Respiratory Rate 20 Blood Pressure Pulse Oximetry Oxygen Delivery Oxygen Flow Rate Intake/Output Intake/Output: Intake & Output 09/04/24 09/05/24 09/06/24 09/07/24 23:59 23:59 23:59 23:59 Intake Total 6211 674 3078 470 Output Total 400 1250 1500 Balance 1820 -60 1021 -1030 Meds/Results Medications: Active Medications Generic Name Dose Route Start Last Admin Trade Name Oleksandrq PRN Reason Stop Dose Admin Acetaminophen 650 mg 08/17/24 16:39 09/07/24 10:09 Acetaminophen 325 Mg Tablet PO 650 mg Q4H PRN Administration Mild Pain (1-3) or Fever Albuterol/Ipratropium 3 ml 08/29/24 14:00 09/07/24 07:38 Ipratropium 0.5 Mg/Albuterol Sulfate 2.5 Mg Ampul.Neb 3 Ml INHALATION 3 ml [id number] KAELA Administration Allopurinol 300 mg 08/18/24 09:00 09/07/24 10:08 Allopurinol 300 Mg Tablet PO 300 mg DAILY KAELA Administration Amlodipine Besylate 2.5 mg 09/02/24 10:45 09/07/24 10:08 Amlodipine Besylate 2.5 Mg Tablet PO 2.5 mg QAM KAELA Administration Aspirin 81 mg 09/06/24 08:00 09/07/24 10:08 Aspirin 81 Mg Chewable Tablet PO 81 mg DAILY@0800 KAELA Administration Atorvastatin Calcium 10 mg 08/17/24 21:00 09/06/24 20:33 Atorvastatin 10 Mg Tablet PO 10 mg HS KAELA Administration Benzonatate 100 mg 08/17/24 20:42 08/26/24 10:07 Benzonatate 100 Mg Capsule PO 100 mg TID PRN Administration Cough Bisacodyl 10 mg 09/05/24 12:19 Bisacodyl 10 Mg Suppository RECTAL QAM PRN Constipation Cyanocobalamin 1,000 mcg 08/31/24 09:00 09/07/24 10:09 Cyanocobalamin 1,000 Mcg Tablet PO 1,000 mcg QAM KAELA Administration Dextrose 12.5 gm 08/17/24 17:18 Dextrose 50% 25 Gm/50 Ml Syringe IV PUSH PRN PRN Hypoglycemia Protocol Empagliflozin 10 mg 08/24/24 09:00 09/07/24 10:08 Empagliflozin 10 Mg Tablet BY MOUTH 10 mg DAILY KAELA Administration Enoxaparin Sodium 40 mg 08/23/24 09:00 09/07/24 10:09 Enoxaparin 40 Mg/0.4 Ml Syringe SUB-Q 40 mg DAILY KAELA Administration Escitalopram Oxalate 20 mg 08/18/24 09:00 09/07/24 10:07 Escitalopram Oxalate 10 Mg Tablet PO 20 mg DAILY KAELA Administration Fluticasone Propionate 2 spray 08/18/24 09:00 09/07/24 10:10 Fluticasone Propionate 0.05% Na Spr 16 Gm Btl (*Bkc) NASAL 2 spray DAILY KAELA Administration Furosemide 40 mg 08/31/24 16:40 09/02/24 13:22 Furosemide 40 Mg Tablet PO 40 mg BID@0800,1400 KAELA Administration Gabapentin 300 mg 08/17/24 21:00 09/06/24 20:34 Gabapentin 300 Mg Capsule PO 300 mg QHS KAELA Administration Glucagon 1 mg 08/17/24 17:18 Glucagon For Inj 1 Mg Vial IM PRN PRN Hypoglycemia Protocol Glucose 15 gm 08/17/24 17:18 Glucose Oral Gel 15 Gm Of Glucse In 37.5 Gm Tube PO PRN PRN Hypoglycemia Protocol Dextrose 1,000 mls @ 100 mls/hr 08/17/24 17:18 Dextrose 5% 1,000 Ml IVPB PRN PRN Hypoglycemia Protocol Insulin Aspart 2 - 4 units 08/17/24 21:00 09/06/24 20:34 Insulin Aspart (*Bkc) 100 Units/Ml SUB-Q Not Given HS KAELA Protocol Insulin Aspart 2 - 5 units 08/24/24 17:00 09/07/24 10:11 Insulin Aspart (*Bkc) 100 Units/Ml SUB-Q 2 units TIDWM KAELA Administration Protocol Insulin Aspart 18 units 09/01/24 17:00 09/07/24 10:05 Insulin Aspart (*Bkc) 100 Units/Ml SUB-Q 18 units TIDWM KAELA Administration Insulin Glargine 50 units 09/03/24 21:00 09/06/24 20:36 Insulin Glargine (*Bkc) 100 Units/Ml SUB-Q 50 units HS KAELA Administration Levetiracetam 250 mg/ 750 mg 09/01/24 21:00 09/07/24 10:08 Levetiracetam 500 mg PO 750 mg Q12HR KAELA Administration Levothyroxine Sodium 50 mcg 08/18/24 06:30 09/07/24 10:08 Levothyroxine Sodium 50 Mcg Tablet PO 50 mcg DAILY@0630 KAELA Administration Metoprolol Tartrate 12.5 mg 09/05/24 21:00 09/07/24 10:09 Metoprolol Tartrate 12.5 Mg Tablet PO 12.5 mg Q12HR KAELA Administration Ondansetron HCl 4 mg 08/17/24 17:17 09/04/24 20:04 Ondansetron Inj 4 Mg/2 Ml Vial IV PUSH 4 mg Q6H PRN Administration Nausea And Vomiting Pantoprazole Sodium 40 mg 09/05/24 21:00 09/07/24 10:08 Pantoprazole Sodium Iv 40 Mg Vial IV PUSH 40 mg Q12HR KAELA Administration Sodium Chloride 2 spray 08/17/24 20:42 08/27/24 09:18 Saline 0.65% Sha Soln 44 Ml Btl NASAL 2 spray QID PRN Administration nasal congestion/dryness Radiology Results: ITS Impressions Shoulder X-Ray 08/18/24 15:56 IMPRESSION: Osteopenia Head CT 08/20/24 09:56 IMPRESSION: 1. Stable moderate nonspecific cerebral white matter disease, which likely represents chronic small vessel ischemic disease. Pulmonary Perfusion Imaging 08/20/24 12:15 IMPRESSION: 1. Low probability for pulmonary embolism. Chest X-Ray 08/22/24 18:38 IMPRESSION: Moderate interstitial edema. Subsegmental bibasilar atelectasis/consolidation. Possible small bilateral effusions. Hand X-Ray 08/23/24 15:26 IMPRESSION: Possible fracture in the distal radius. Clinical correlation and proper images are advised. Slight narrowing of the proximal and distal interphalangeal joints. Forearm X-Ray 08/24/24 11:01 IMPRESSION: 1. No fracture identified. 2. Loose bodies in the radiocarpal compartment. Modified Barium Swallow 08/24/24 14:17 IMPRESSION: Minimal pharyngeal dysphagia with trace shallow laryngeal penetration without aspiration. Please correlate with speech pathologist findings and specific feeding recommendations. Chest/Abdomen/Pelvis CT 08/27/24 09:37 IMPRESSION: 1. Mild atelectasis in the lungs. Lumbar Puncture Fluoroscopy 08/27/24 15:40 IMPRESSION: 1. Successful fluoro-guided lumbar puncture. Venous Doppler Study 08/29/24 23:29 IMPRESSION: 1. No deep venous thrombosis within the right lower extremity from the level of the mid femoral vein centrally to the right common femoral vein, as detailed above. Bone Scan Nuclear Medicine 09/03/24 15:42 IMPRESSION: 1. No evidence of malignancy. Abdomen X-Ray 09/05/24 13:57 IMPRESSION: 1. Nonobstructive bowel gas pattern. Brain MRI 09/05/24 17:06 IMPRESSION: No acute cerebral infarction. No acute or subacute hemorrhage. Findings suggesting of microvascular ischemic disease. Bilateral mastoid effusions, left greater than right Labs Labs: Laboratory Results - last 24 hr 08/27/24 09/06/24 09/06/24 16:15 16:45 20:32 POC Capillary Glucose 141 H 155 H Ref Lab Test Name Ndma receptor csf Ref Lab Test Result See comment 09/07/24 09/07/24 07:37 11: POC Capillary Glucose 200 H 274 H Ref Lab Test Name Ref Lab Test Result
--- NOTE | 2024-09-07 14:51 | WPDNEUROPN ---
Progress Note: A&P Assessment and Plan (1) Dementia: Code(s): F03.90 - Unspecified dementia, unspecified severity, without behavioral disturbance, psychotic disturbance, mood disturbance, and anxiety Status: Acute Plan At this time we do not have any definite cause for the rapid progression of the dementia. She has had a fair amount of workup done including 2 MRIs and spinal tap and looking for encephalitis and empiric treatment for seizures and even viral encephalitis but nothing has really helped much. I will suggest to start her on Aricept and Namenda at this time and gradually adjust the dose upward. Supportive care is recommended. I am afraid that we do not have any additional treatment for her to be offered at this time. I fairly lengthy discussion with about her case also. We can keep her on Keppra for now. Of course this is an option since we have not seen have any seizures other than the fact that she has had significant fluctuations in her mental status at times. I shall be glad to follow her up as an outpatient in my office. I noted that the MMA level was high although B12 level was still within normal range we can give her empiric treatment with B12 injection also. Subjective Date/time seen: 09/07/24 14:51 Interval history: Patient is 73-year-old with the changes in mental status who comes continues to be confused or demented she is very pleasant and the stalk and knows her age but beyond that upon specific questioning she tends to get confused. Her dementia has not improved. We have given her impaired treatment with Keppra since 1 of the nurses thought that there was a fluctuation in her mental status to the extent that we wondered about her having partial complex seizures. However there has not been any significant difference in status. So far we have received the results of see spinal fluid including all the PCR for viral studies which did not show evidence for viral encephalitis. NMDA receptor was also negative. Repeat MRI did not show any significant abnormalities. Review of Systems Review of Systems: All systems reviewed & are unremarkable except as noted in HPI and below Exam Narrative: Pleasant and cooperative. The The there however unable to name 5 colors. She does not know the month or year however she gave the year to the nurse distally bed ago. Moving both upper and lower limbs. Cranial nerves were also grossly intact. Objective Data Vital Signs Vital Signs: Vital Signs - 24 hr 09/06/24 20:28 09/06/24 20:34 09/06/24 21:31 Temperature 97.9 F Pulse Rate 98 100 101 H Respiratory Rate 18 20 Blood Pressure 149/64 H Pulse Oximetry 94 Oxygen Delivery Oxygen Flow Rate 09/06/24 21:34 09/06/24 21:38 09/07/24 05:50 Temperature 97.1 F L Pulse Rate 101 H 94 92 Respiratory Rate 20 16 Blood Pressure 142/75 H Pulse Oximetry 87 L 94 Oxygen Delivery Nasal Cannula Oxygen Flow Rate 2 09/07/24 07:39 09/07/24 07:39 09/07/24 07:48 Temperature Pulse Rate 74 92 Respiratory Rate 20 20 Blood Pressure Pulse Oximetry 92 Oxygen Delivery Nasal Cannula Oxygen Flow Rate 3 09/07/24 10:09 09/07/24 08:00 09/07/24 13:45 Temperature Pulse Rate 102 H Respiratory Rate Blood Pressure Pulse Oximetry 93 Oxygen Delivery Nasal Cannula Nasal Cannula Oxygen Flow Rate 3 3 09/07/24 13:45 09/07/24 14:08 09/07/24 13:51 Temperature 97.7 F Pulse Rate 105 H 100 107 H Respiratory Rate 20 22 H 20 Blood Pressure 158/70 H Pulse Oximetry 97 Oxygen Delivery Oxygen Flow Rate 09/07/24 14:31 Temperature 97.7 F Pulse Rate 110 H Respiratory Rate 22 H Blood Pressure 158/70 H Pulse Oximetry 94 Oxygen Delivery Oxygen Flow Rate Intake/Output Intake/Output: Intake & Output 09/04/24 09/05/24 09/06/24 09/07/24 23:59 23:59 23:59 23:59 Intake Total 6855 283 2147 1645 Output Total 400 1250 1750 Balance 1820 -60 1021 -105 Meds/Results Medications: Active Medications Generic Name Dose Route Start Last Admin Trade Name Freq PRN Reason Stop Dose Admin Acetaminophen 650 mg 08/17/24 16:39 09/07/24 10:09 Acetaminophen 325 Mg Tablet PO 650 mg Q4H PRN Administration Mild Pain (1-3) or Fever Albuterol/Ipratropium 3 ml 08/29/24 14:00 09/07/24 13:44 Ipratropium 0.5 Mg/Albuterol Sulfate 2.5 Mg Ampul.Neb 3 Ml INHALATION 3 ml [id number] KAELA Administration Allopurinol 300 mg 08/18/24 09:00 09/07/24 10:08 Allopurinol 300 Mg Tablet PO 300 mg DAILY KAELA Administration Amlodipine Besylate 2.5 mg 09/02/24 10:45 09/07/24 10:08 Amlodipine Besylate 2.5 Mg Tablet PO 2.5 mg QAM KAELA Administration Aspirin 81 mg 09/06/24 08:00 09/07/24 10:08 Aspirin 81 Mg Chewable Tablet PO 81 mg DAILY@0800 KAELA Administration Atorvastatin Calcium 10 mg 08/17/24 21:00 09/06/24 20:33 Atorvastatin 10 Mg Tablet PO 10 mg HS KAELA Administration Benzonatate 100 mg 08/17/24 20:42 08/26/24 10:07 Benzonatate 100 Mg Capsule PO 100 mg TID PRN Administration Cough Bisacodyl 10 mg 09/05/24 12:19 Bisacodyl 10 Mg Suppository RECTAL QAM PRN Constipation Cyanocobalamin 1,000 mcg 08/31/24 09:00 09/07/24 10:09 Cyanocobalamin 1,000 Mcg Tablet PO 1,000 mcg QAM KAELA Administration Dextrose 12.5 gm 08/17/24 17:18 Dextrose 50% 25 Gm/50 Ml Syringe IV PUSH PRN PRN Hypoglycemia Protocol Donepezil HCl 5 mg 09/08/24 09:00 Donepezil Hcl 5 Mg Tablet PO DAILY KAELA Empagliflozin 10 mg 08/24/24 09:00 09/07/24 10:08 Empagliflozin 10 Mg Tablet BY MOUTH 10 mg DAILY KAELA Administration Enoxaparin Sodium 40 mg 08/23/24 09:00 09/07/24 10:09 Enoxaparin 40 Mg/0.4 Ml Syringe SUB-Q 40 mg DAILY KAELA Administration Escitalopram Oxalate 20 mg 08/18/24 09:00 09/07/24 10:07 Escitalopram Oxalate 10 Mg Tablet PO 20 mg DAILY KAELA Administration Fluticasone Propionate 2 spray 08/18/24 09:00 09/07/24 10:10 Fluticasone Propionate 0.05% Na Spr 16 Gm Btl (*Bkc) NASAL 2 spray DAILY KAELA Administration Furosemide 40 mg 08/31/24 16:40 09/02/24 13:22 Furosemide 40 Mg Tablet PO 40 mg BID@0800,1400 KAELA Administration Gabapentin 300 mg 08/17/24 21:00 09/06/24 20:34 Gabapentin 300 Mg Capsule PO 300 mg QHS KAELA Administration Glucagon 1 mg 08/17/24 17:18 Glucagon For Inj 1 Mg Vial IM PRN PRN Hypoglycemia Protocol Glucose 15 gm 08/17/24 17:18 Glucose Oral Gel 15 Gm Of Glucse In 37.5 Gm Tube PO PRN PRN Hypoglycemia Protocol Dextrose 1,000 mls @ 100 mls/hr 08/17/24 17:18 Dextrose 5% 1,000 Ml IVPB PRN PRN Hypoglycemia Protocol Insulin Aspart 2 - 4 units 08/17/24 21:00 09/06/24 20:34 Insulin Aspart (*Bkc) 100 Units/Ml SUB-Q Not Given HS KAELA Protocol Insulin Aspart 2 - 5 units 08/24/24 17:00 09/07/24 13:19 Insulin Aspart (*Bkc) 100 Units/Ml SUB-Q 3 units TIDWM KAELA Administration Protocol Insulin Aspart 18 units 09/01/24 17:00 09/07/24 13:18 Insulin Aspart (*Bkc) 100 Units/Ml SUB-Q 18 units TIDWM KAELA Administration Insulin Glargine 50 units 09/03/24 21:00 09/06/24 20:36 Insulin Glargine (*Bkc) 100 Units/Ml SUB-Q 50 units HS KAELA Administration Levetiracetam 250 mg/ 750 mg 09/01/24 21:00 09/07/24 10:08 Levetiracetam 500 mg PO 750 mg Q12HR KAELA Administration Levothyroxine Sodium 50 mcg 08/18/24 06:30 09/07/24 10:08 Levothyroxine Sodium 50 Mcg Tablet PO 50 mcg DAILY@0630 KAELA Administration Memantine 5 mg 09/08/24 09:00 Memantine 5 Mg Tablet PO QAM KAELA Metoprolol Tartrate 12.5 mg 09/05/24 21:00 09/07/24 10:09 Metoprolol Tartrate 12.5 Mg Tablet PO 12.5 mg Q12HR KAELA Administration Ondansetron HCl 4 mg 08/17/24 17:17 09/04/24 20:04 Ondansetron Inj 4 Mg/2 Ml Vial IV PUSH 4 mg Q6H PRN Administration Nausea And Vomiting Pantoprazole Sodium 40 mg 09/05/24 21:00 09/07/24 10:08 Pantoprazole Sodium Iv 40 Mg Vial IV PUSH 40 mg Q12HR KAELA Administration Sodium Chloride 2 spray 08/17/24 20:42 08/27/24 09:18 Saline 0.65% Sha Soln 44 Ml Btl NASAL 2 spray QID PRN Administration nasal congestion/dryness Radiology Results: ITS Impressions Shoulder X-Ray 08/18/24 15:56 IMPRESSION: Osteopenia Head CT 08/20/24 09:56 IMPRESSION: 1. Stable moderate nonspecific cerebral white matter disease, which likely represents chronic small vessel ischemic disease. Pulmonary Perfusion Imaging 08/20/24 12:15 IMPRESSION: 1. Low probability for pulmonary embolism. Chest X-Ray 08/22/24 18:38 IMPRESSION: Moderate interstitial edema. Subsegmental bibasilar atelectasis/consolidation. Possible small bilateral effusions. Hand X-Ray 08/23/24 15:26 IMPRESSION: Possible fracture in the distal radius. Clinical correlation and proper images are advised. Slight narrowing of the proximal and distal interphalangeal joints. Forearm X-Ray 08/24/24 11:01 IMPRESSION: 1. No fracture identified. 2. Loose bodies in the radiocarpal compartment. Modified Barium Swallow 08/24/24 14:17 IMPRESSION: Minimal pharyngeal dysphagia with trace shallow laryngeal penetration without aspiration. Please correlate with speech pathologist findings and specific feeding recommendations. Chest/Abdomen/Pelvis CT 08/27/24 09:37 IMPRESSION: 1. Mild atelectasis in the lungs. Lumbar Puncture Fluoroscopy 08/27/24 15:40 IMPRESSION: 1. Successful fluoro-guided lumbar puncture. Venous Doppler Study 08/29/24 23:29 IMPRESSION: 1. No deep venous thrombosis within the right lower extremity from the level of the mid femoral vein centrally to the right common femoral vein, as detailed above. Bone Scan Nuclear Medicine 09/03/24 15:42 IMPRESSION: 1. No evidence of malignancy. Abdomen X-Ray 09/05/24 13:57 IMPRESSION: 1. Nonobstructive bowel gas pattern. Brain MRI 09/05/24 17:06 IMPRESSION: No acute cerebral infarction. No acute or subacute hemorrhage. Findings suggesting of microvascular ischemic disease. Bilateral mastoid effusions, left greater than right Labs Labs: Laboratory Results - last 24 hr 08/27/24 09/06/24 09/06/24 16:15 16:45 20:32 POC Capillary Glucose 141 H 155 H Ref Lab Test Name Ndma receptor csf Ref Lab Test Result See comment 09/07/24 09/07/24 07:37 11:24 POC Capillary Glucose 200 H 274 H Ref Lab Test Name Ref Lab Test Result
--- NOTE | 2024-09-07 15:20 | P.DS_ITS ---
DS: Admitting Diagnosis Discharge Date 09/07/2024 Admitting Diagnosis Altered mental status DS: Discharge Diagnosis Discharge Diagnosis (1) Change in mental status: Code(s): R41.82 - Altered mental status, unspecified Status: Acute (2) Confusion: Code(s): R41.0 - Disorientation, unspecified Status: Acute (3) Hyperparathyroidism: Code(s): E21.3 - Hyperparathyroidism, unspecified Status: Acute (4) Acute exacerbation of COPD with asthma: Code(s): J44.1 - Chronic obstructive pulmonary disease with (acute) exacerbation; J45.901 - Unspecified asthma with (acute) exacerbation Status: Acute (5) CHF (congestive heart failure), NYHA class I: Qualifiers: Congestive heart failure type: unspecified Qualified Code(s): I50.9 - Heart failure, unspecified Code(s): I50.9 - Heart failure, unspecified Status: Acute DS: Summary Hospital Course Hospital Course: # Confusion: Patient had increasing altered mental status since admission. Patient slow to respond, able follow simple commands, staring into space. EEG 08/27 showing abnormal EEG due to presence of diffuse background slowing suggestive of generalized encephalopathy Such as may be seen with bihemispheric lesions or metabolic encephalopathy. No focal or paroxysmal epileptiform abnormalities were seen. ABG within normal limits. Ammonia level negative. TSH normal. VitD deficiency noted related to hypercalcemia. HIV negative in Nov. B12 low end of normal at 303. B12 replaced. MRI shows moderate nonspecific cerebral white matter disease and pontine disease, which likely represents chronic small vessel ischemic disease, stable from 05/26/2022. Gabapentin, allopurinol and narcotic medications were held Was on Fioricet prn but may be taking this more regularly so consider withdrawal but seems less likely. Confusion probably multifactorial from dementia, withdrawal, hypercalcemia, hospital-acquired hypoactive delirium and/or psychiatric issues. Consider occult seizures. Consider related to uremia, hypercalcemia and/or being off Fiorcet LP performed 08/27/2024. Negative for bacterial. Viral etiology still possible so acyclovir started. Speech therapy note reviewed. Diet adjusted CSF HSV PCR was negative so Acyclovir stopped. VDRL and EBV DNA also negative. NMDA encephalitis panel was also negative. Neurology consulted and recommended pt to follow-up outpatient in 3 weeks for Alzheimer's workup. Keppra started 09/01. No significant signs of improvement. Changed to oral Keppra Repeat MRI with no acute stroke microvascular ischemic disease changes. Bilateral mastoid effusions left greater than right. Started on Namenda and Aricept per Neurology recommendations. Follow-up as an outpatient basis # Hyperparathyroidism: Hypercalcemia noted. Started on IV fluids as BRADY also worsening. iPTH elevated which explains the hypercalcemia. [id number] 19 probably related to the hypercalcemia. TSH normal. iPTH 136 (and has been elevated since 2021) Calcium level better with IV fluids. Calcitonin given with benefit Bone scan showing no evidence of malignancy. Continue to follow # Acute respiratory failure with hypoxia: Patient is not on any baseline oxygen during the day however is requiring 2-4 L nasal cannula now due to hypoxia in the ER with oxygen saturation of 87% on room air. CXR showing airspace opacities in the lower lung zones. BNP 480. Respiratory panel was negative for influenza A and B, RSV, COVID ABG showed normal pH of 7.366, pCO2 46.2, PO2 58.7, bicarb 25.9 on 2L WBC count was normal and was afebrile. Patient was started on abx while in the ED. D-dimer mildly elevated but V/Q scan low probability and LE venous doppler was negative (limited study and could only get right LE) EKG showing sinus rhythm with a rate of 66, QTC 423 CT chest 08/27 showing mild atelectasis ABG 09/03 showing 7.39/45/64 on 2L. Wean O2 as tolerated # CHF (congestive heart failure): Echo from 12/2021 showed normal LV systolic function (EF of 65-70%), grade 1 diastolic dysfunction. CXR reporting airspace opacities in the lower lung zones likely atelectasis. BNP 483 A one time dose of 40 mg of IV Lasix ordered. Further diuresis held considering renal function Repeat Echo EF 65-70% Lasix was on hold. Renal function stabilized. Cr up to 2.6 so lasix held again. # Type 2 diabetes mellitus: A1c 9.5%. The patient's blood glucose was reviewed on 09/04 Glucose still poorly controlled. Continue AccuCheks covering with sliding scale. Hypoglycemia protocol available as needed. Diabetic diet. Higher glucose due to eating better? Continue to monitor. Advance Lantus and Novolog again # Chronic kidney disease, stage IV (severe): Creatinine 2.9, EGFR 16 on admission. Baseline creatinine 2.1-2.6 Cr up to 3.3 so diuretics stopped. Was on IV fluids and Cr trended down to 2.1 off lasix NS 100ml/h poor intake Will place Calderon catheter in because or urine retention. Repeat urinalysis # Hypertension: Patient's blood pressure was reviewed on 09/04 Blood pressure better controlled overall. Will continue to follow # Obstructive sleep apnea on CPAP: Patient does not wear CPAP but only wears 2L of oxygen at night only ABG as above Wean O2 during the day as tolerated. Continue O2 at night. # UTI (urinary tract infection): UA is consistent with UTI. UCx collected. Rocephin started. BCx negative. UCx grew Citrobacter that was essentially odonnell-sensitive. Rocephin x 3 days then changed to Cefepime then Bactrim to complete a course. Off abx currently # Urinary retention Bladder scan showed more than 400 mL urine Calderon catheter is placed Repeated urine culture showed cloudy urine, white blood 6-10 Patient finished antibiotic treatment Follow-up urine culture, will not start antibiotics now # Hypothyroidism: TSH normal. Continue Synthroid # Elevated d-dimer: As above. # Radial styloid fracture: Right subacute stylod fx. Orthopedics consulted Brace for support Okay for range of motion Platform walker weight-bearing through elbow Brace for 4-6 weeks and follow-up outpatient clinic Patient has difficulty with ambulation, consult PT OT professional services consultant for evaluation and assisting placement. Patient willl benefit from prison replacement which was arranged. Discussed with daughter at the time of discharge Time Spent with Patient Time attestation: Total time spent providing and/or coordinating discharge services: 45 minutes Exam Narrative: GENERAL: Pleasant, in no acute distress. Well-nourished. Obesity - EYES: EOMI. Anicteric. - HENT: Moist mucous membranes. - LUNGS: Clear to auscultation bilateral ly, no wheezing, rhonchi, or rales. - CARDIOVASCULAR: Regular rate and rhyth m. No murmur. No JVD. - ABDOMEN: Soft, non-tender and non-dist ended. No palpable masses. Calderon catheter in-situ, clear - EXTREMITIES: No edema. Peripheral puls es 2+. Non-tender. - NEUROLOGIC: No focal neurological defi cits. CN II-XII grossly intact. - PSYCHIATRIC: Awake, Alert, follow some commands, Appropriate mood and affect. - SKIN: No rashes or lesions. Warm. - LYMPH: No cervical lymphadenopathy. DS: Data Data Completed and Pending Labs on day of discharge: Labs from last 24 hours 09/07/24 09/07/24 09/06/24 11:24 07:37 20:32 POC Capillary Glucose 274 H 200 H 155 H Ref Lab Test Name Ref Lab Test Result 09/06/24 08/27/24 16:45 16:15 POC Capillary Glucose 141 H Ref Lab Test Name Ndma receptor csf Ref Lab Test Result See comment Preliminary micro results at discharge 08/27/24 15:20 Fungal Culture and Stain - Preliminary Cerebral Spinal Fluid Imaging Radiologist's impression: ITS Impressions Chest X-Ray 08/17/24 13:11 IMPRESSION: 1. Airspace opacities in the lower lung zones, likely atelectasis. Shoulder X-Ray 08/18/24 15:56 IMPRESSION: Osteopenia Head CT 08/20/24 09:56 IMPRESSION: 1. Stable moderate nonspecific cerebral white matter disease, which likely represents chronic small vessel ischemic disease. Pulmonary Perfusion Imaging 08/20/24 12:15 IMPRESSION: 1. Low probability for pulmonary embolism. Brain MRI 08/22/24 16:06 IMPRESSION: 1. Moderate nonspecific cerebral white matter disease and pontine disease, which likely represents chronic small vessel ischemic disease, stable from 05/26/2022. Chest X-Ray 08/22/24 18:38 IMPRESSION: Moderate interstitial edema. Subsegmental bibasilar atelectasis/consolidation. Possible small bilateral effusions. Hand X-Ray 08/23/24 15:26 IMPRESSION: Possible fracture in the distal radius. Clinical correlation and proper images are advised. Slight narrowing of the proximal and distal interphalangeal joints. Forearm X-Ray 08/24/24 11:01 IMPRESSION: 1. No fracture identified. 2. Loose bodies in the radiocarpal compartment. Modified Barium Swallow 08/24/24 14:17 IMPRESSION: Minimal pharyngeal dysphagia with trace shallow laryngeal penetration without aspiration. Please correlate with speech pathologist findings and specific feeding recommendations. Chest/Abdomen/Pelvis CT 08/27/24 09:37 IMPRESSION: 1. Mild atelectasis in the lungs. Lumbar Puncture Fluoroscopy 08/27/24 15:40 IMPRESSION: 1. Successful fluoro-guided lumbar puncture. Venous Doppler Study 08/29/24 23:29 IMPRESSION: 1. No deep venous thrombosis within the right lower extremity from the level of the mid femoral vein centrally to the right common femoral vein, as detailed above. Bone Scan Nuclear Medicine 09/03/24 15:42 IMPRESSION: 1. No evidence of malignancy. Abdomen X-Ray 09/05/24 13:57 IMPRESSION: 1. Nonobstructive bowel gas pattern. Brain MRI 09/05/24 17:06 IMPRESSION: No acute cerebral infarction. No acute or subacute hemorrhage. Findings suggesting of microvascular ischemic disease. Bilateral mastoid effusions, left greater than right Discharge Plan Discharge Attending physician on discharge: Dann Manuel Consulting providers: Chad Barnes; Yoel Mack; Arvin Desai Discharging Clinician: Dann Manuel Anticipated Discharge Date/Time: 09/07/24 14:59 Patient Disposition: SNF Activity: as tolerated Diet: diabetic Discharge Instructions: Accu-Cheks AC and HS Oxygen supplementation via nasal cannula to keep SpO2 more than 90% Calderon catheter to gravity. Change catheter at least every month. Void trial in nursing facility PT OT to continue to evaluate and treat Stand Alone Forms: General Discharge Information, Senior Living Discharge Follow-up/Referrals: Araceli,MD Ludwin [Primary Care Provider] - 1 Week Yoel Mack MD [Physician] - 4 Weeks Chad Barnes MD [Physician] - 4 Weeks Arvin Desai MD [Physician] - 3 Weeks Discharge Medications: New levetiracetam 750 mg Tablet 750 mg PO Q12HR Qty: 60 0RF donepezil [Aricept] 5 mg Tablet 5 mg PO HS Qty: 30 0RF memantine 5 mg tablet 5 mg PO QAM 7 Days Qty: 7 0RF metoprolol tartrate 25 mg tablet 12.5 mg PO BID Qty: 30 0RF cyanocobalamin (vitamin B-12) [Vitamin B-12] 1,000 mcg Tablet 1,000 mcg PO QAM Qty: 30 0RF amlodipine 2.5 mg Tablet 2.5 mg PO QAM Qty: 30 0RF Continued magnesium oxide 400 mg magnesium tablet 400 mg PO DAILY escitalopram oxalate [Lexapro] 20 mg tablet 20 mg PO DAILY Qty: 90 0RF (DME) FreeStyle Jeffrey 2 Sensor Kit See Rx Instructions .ROUTE .MEDSUPPLY Qty: 6 3RF Rx Instructions: As directed levothyroxine 50 mcg tablet 50 mcg PO DAILY Qty: 90 1RF cetirizine 10 mg tablet 10 mg PO DAILY PRN (Reason: allergy symptoms) Qty: 90 0RF dapagliflozin propanediol [Farxiga] 10 mg tablet 10 mg PO DAILY Qty: 90 1RF (DME) pen needle, diabetic 30 gauge x 1/3 needle See Rx Instructions .Route Rx Instructions: As directed gabapentin 300 mg capsule 300 mg PO QHS Qty: 90 0RF albuterol sulfate 2.5 mg/0.5 mL solution for nebulization 2.5 mg inhalation Q20M PRN (Reason: shortness of breath or wheezing) Qty: 30 0RF Rx Instructions: for up to 3 doses allopurinol 300 mg tablet 300 mg PO DAILY pantoprazole 40 mg tablet,delayed release (DR/EC) 40 mg PO QAM 30 Days Qty: 30 11RF albuterol sulfate [Ventolin HFA] 90 mcg/actuation HFA aerosol inhaler 2 puff inhalation Q4H PRN (Reason: shortness of breath or wheezing) Qty: 8.5 5RF atorvastatin 10 mg tablet 10 mg PO HS aspirin 81 mg Capsule 81 mg PO DAILY fexofenadine 180 mg tablet 180 mg PO DAILY omega-3 fatty acids Capsule 1,000 mg PO DAILY fluticasone furoate-vilanterol [Breo Ellipta] 100-25 mcg/dose Blister With Device 1 inh INHALATION DAILY cholecalciferol (vitamin D3) 50 mcg (2,000 unit) tablet 50 mcg PO DAILY acetaminophen 325 mg tablet 650 mg PO BID benzonatate 100 mg capsule 100 mg PO TID PRN (Reason: Cough) insulin lispro [Humalog KwikPen Insulin] 100 unit/mL insulin pen See Rx Instructions .ROUTE .COMPLEX Rx Instructions: 14 unit subcutaneously before lunch and dinner insulin lispro [Humalog KwikPen Insulin] 100 unit/mL insulin pen See Rx Instructions .ROUTE .COMPLEX Rx Instructions: For blood sugars 150-190 - 1 unit 191- 230 - 2 units 231 - 270 - 3 units 271- 310 - 4 units 311 - 350 - 5 units more than 351 - 6 units insulin glargine [Basaglar KwikPen U-100 Insulin] 100 unit/mL (3 mL) insulin pen 45 unit SUBCUT QAM acetaminophen 500 mg tablet 500 mg PO Q6H PRN (Reason: mild pain or fever) insulin lispro [Humalog KwikPen Insulin] 100 unit/mL insulin pen 12 unit subcut QACBREAK Deep Sea Nasal 0.65 % aerosol,spray 2 spray intranasal QID PRN (Reason: nasal congestion/dryness) miconazole nitrate [Miconazorb AF] 2 % powder 1 applic topical BID Qty: 85 1RF Rx Instructions: apply to affected areas ABDOMINAL FOLDS AND GROIN fluticasone propionate 50 mcg/actuation spray,suspension 2 spray intranasal DAILY Qty: 16 1RF Hold Instructions: .Provider Order Rx Instructions: administer into each nostril (DME) Novofine Autocover 30 gauge x 1/3 needle See Rx Instructions .Route Qty: 100 2RF Rx Instructions: use daily for subq injection Discontinued guanfacine 2 mg tablet 2 mg PO HS carvedilol 25 mg tablet 25 mg PO BIDWM furosemide 80 mg tablet See Rx Instructions .ROUTE .COMPLEX Rx Instructions: 80 mg orally at 0800 and 1400 Qulipta 10 mg tablet 10 mg PO DAILY [id number] [Fioricet] 50-300-40 mg capsule 2 cap PO DAILY PRN (Reason: Pain) Rx Instructions: max 2 capsules daily amitriptyline 10 mg tablet 10 mg PO QHS 30 Days Qty: 30 2RF Date of admission: 08/17/24 17:36 Primary Care Provider: AraceliLudwin Admitting Provider: Nnamdi Bell Attending physician on admission: Nnamdi Bell Condition: Stable Hospitalist MIPS Heart Failure (Exclusion) Patient has history of Heart Transplant or Left Ventricular Assistive Device?: No IF YES, STOP HERE Heart Failure (Qualifier) Patient has current or prior documentation of LVEF less than or equal to 40%, or mod/servere depressed LVSF?: No IF NO, STOP HERE
[2024-09-07 16:20] LABS: Glucose Point of Care 208 mg/dl (65-105)
--- NOTE | 2024-09-07 17:50 | PC.NURSE ---
Pt to transfer to [facility] via [facility] trip #[id number]. ETA 1900 on 09/07/24.
[2024-09-07] MEDS: GABAPENTIN 300 MG CAPSULE PO (20:10)
[2024-09-07] MEDS: ATORVASTATIN 10 MG TABLET PO (20:11)
[2024-09-07] MEDS: INSULIN GLARGINE (*BKC) 100 UNITS/ML 50 UNITS SUB-Q (20:13)
--- NOTE | 2024-09-07 21:55 | PC.NURSE ---
Patient was transported at 2150. [facility] called and left message for daughter ( Beverly) that patient was discharged.
[2024-09-08 02:22] LABS: Glucose Point of Care 159 mg/dl (65-105)
--- NOTE | 2024-09-08 10:12 | PC.NURSE ---
[facility] contacted to return [employer] bariatric bed and mattress. Termination number: [id number]
[2024-09-10 07:21] LABS: Reference Lab Test Name ADMARK P TAU
== END 2024-09-07 21:50 | DRG 291 ==
LOC: ANHED 12:57 → ANH3MED 17:15
PROVIDERS: Hospitalist; Internal Medicine Nephrology; Nurse Practitioner; Nurse Practitioner Acute Care; Nurse Practitioner Gerontology; Radiology Diagnostic Radiology; Student in an Organized Health Care Education/Training Program; Admitting Provider Internal Medicine; Emergency Provider Emergency Medicine; PCP Internal Medicine; Visit Provider Internal Medicine
DX: I13.0 Hypertensive heart and chronic kidney disease with heart failure and stage 1 through stage 4 chronic kidney disease, or unspecified chronic kidney disease (principal); J96.21 Acute and chronic respiratory failure with hypoxia; N39.0 Urinary tract infection, site not specified; S52.514A Nondisplaced fracture of right radial styloid process, initial encounter for closed fracture; N18.4 Chronic kidney disease, stage 4 (severe); I50.9 Heart failure, unspecified; I71.20 Thoracic aortic aneurysm, without rupture, unspecified; J44.9 Chronic obstructive pulmonary disease, unspecified; E11.22 Type 2 diabetes mellitus with diabetic chronic kidney disease; E11.649 Type 2 diabetes mellitus with hypoglycemia without coma; E11.42 Type 2 diabetes mellitus with diabetic polyneuropathy; E78.5 Hyperlipidemia, unspecified; E21.3 Hyperparathyroidism, unspecified; M47.816 Spondylosis without myelopathy or radiculopathy, lumbar region; M10.9 Gout, unspecified; R13.10 Dysphagia, unspecified; R79.1 Abnormal coagulation profile; R33.9 Retention of urine, unspecified; G47.33 Obstructive sleep apnea (adult) (pediatric); G56.03 Carpal tunnel syndrome, bilateral upper limbs; F03.90 Unspecified dementia, unspecified severity, without behavioral disturbance, psychotic disturbance, mood disturbance, and anxiety; Z20.822 Contact with and (suspected) exposure to COVID-19; Z79.4 Long term (current) use of insulin; Z79.82 Long term (current) use of aspirin; Z99.81 Dependence on supplemental oxygen; Z86.718 Personal history of other venous thrombosis and embolism; Z86.711 Personal history of pulmonary embolism
CPT/HCPCS: 36415; 36600; 62328; 70450; 70551; 70553; 71045; 71250; 73030; 73090; 73130; 74018; 74176; 78306; 78582; 80048; 80053; 80069; 81001; 81050; 82140; 82306; 82310; 82375; 82570; 82607; 82652; 82746; 82805; 82945; 82948; 83036; 83050; 83605; 83735; 83880; 83921; 83970; 84100; 84145; 84156; 84157; 84300; 84436; 84443; 84480; 84484; 84540; 84550; 85018; 85025; 85027; 85380; 85610; 85730; 86362; 86592; 86617; 87040; 87070; 87086; 87102; 87186; 87206; 87529; 87637; 87641; 87798; 89051; 92610; 92611; 93005; 93306; 93971; 94640; 95816; 96365; 97110; 97161; 97162; 97165; 97530; 97535; 99285; A9270; A9503; A9540; A9558; A9577; G0378; J0133; J0456; J0630; J0692; J0696; J1650; J1815; J1940; J2405; J2430; J2470; J3420; J7030; J7060